=== PATIENT | female | born 1960 | race Caucasian/White ===

== ENCOUNTER → 2018-02-20 13:30 | Outpatient (CLI) | payer MEDICAID, SELFPAY ==
--- NOTE | 2018-02-20 13:32 | STE_ITS ---
Reason For Study: CHEST PAIN Stress Results Protocol: [facility]ector Protocol Maximum Predicted HR: 162 bpm Target HR: 138 bpm% Max imum Predicted HR: 93 % DurationHeart Rate Stage (mm:ss) (bpm) BPDose Comment BASELINE 70 129/97 STAGE 1 3:00 76 137/78 10.00 STAGE 2 3:00 10 7 130/69 20.00 STAGE 3 3:00 11 2 143/84428.00 STAGE 4 1:48 15 1 122/75 40.00 RECOVERY 97 127/83 0.7 ML DEFINITY FOR TEST Stress Duration: 10:48 mm:ss Maximum Stress HR: 151 bpm Baseline Echocardiogram Findings Stress Echo Wall motion Data Resting WMIntermediate WMStress WM Resting Wall Motion Wall Motion Stress No regional wall motion No regional wall motion abnormalities noted. abnormalities noted. Ejection Fraction 55 %. Ejection Fraction 65 %. Stress Results Drug infusion was stopped due to achievement of target heart rate. Normal BP response. EKG Data Baseline ECG demonstrates normal sinus rhythm with a rate of 74 beats per minute. Normal intervals are noted. The resting blood pressure was 129/79. The patient was titrated from 10 mcg to a maximum of 40 mcg of dobutamine during the stress. This was 94% of maximum predicted heart rate. During dobutamine infusion, there were no ST or T wave changes noted to suggest ischemia. At peak infusion, upsloping ST changes only were noted, which did not meet the criteria for ischemia. The peak blood pressure was 148/80. No arrhythmias noted. No clinical angina was noted. Interpretation Summary Normal resting LV systolic function. Nonstenotic valves. With stress, the LV size decreased and all segments augmented normally. The LVEF increased from 55% to 65%. Negative for ischemia at 94% of MPHR and at 1 METS. Normal dobutamine stress echo Ordering Physician: Sim Branch Referring Physician: Sim Branch Performed By: Francisca Carlisle, RDCS, RVT
== END ==
PROVIDERS: Family Provider Family Medicine; PCP Family Medicine; Visit Provider Internal Medicine Cardiovascular Disease
DX: R07.9 Chest pain, unspecified (principal)
CPT/HCPCS: 93017; 93350; J7030; Q9957; A4216; C8928

== ENCOUNTER 2018-04-15 17:07 | Emergency (ER) | payer MEDICAID, SELFPAY ==
[2018-04-15 17:08] VITALS: BP 148/96; PULSE 95; RESP 17; TEMP 36.9; O2SAT 98; BMI 36.6
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
[2018-04-15 17:12] VITALS: BP 163/93; PULSE 102; RESP 24; O2SAT 98
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
[2018-04-15] MEDS: morphine 8 MG/ML Syringe IV (17:23)
[2018-04-15] MEDS: Ondansetron 4 MG/2 ML Vial IV (17:23)
[2018-04-15] MEDS: 0.9% Normal Saline 1,000 ML 999 ML IV (17:23)
[2018-04-15 17:43] LABS: Absolute Lymphocyte Count 3.49 X10^3/ul (0.83-4.51); Absolute Neutrophil Count 11.4 X10^3/uL (2.0-7.7); Basophil# 0.04 X10^3/uL; Basophil% 0.2 % (0-1); Eosinophil# 0.08 X10^3/uL; Eosinophils% 0.5 % (0-5); Hematocrit 47.2 % (37-47); Hemoglobin 15.9 g/dl (12.0-15.0); Lymphocyte # 3.49 X10^3/ul (4.0); Lymphocyte % 21.5 % (19-41); Mean Corp Hgb Conc 33.7 g/gl (32-36); Mean Corpuscular Hgb 31.2 pg (27.0-32.0); Mean Corpuscular Volume 92.5 fL (81-99); Mean Platelet Vol. 9.6 fl (6.2-12.0); Monocyte# 1.14 X10^3/uL; Neutrophil # 11.38 X10^3/uL (2.7-7.7); Neutrophil % 69.9 % (47-70); Platelet Count 294 K/mm3 (150-450); RBC Distribution Width CV 13.6 % (11.6-14.6); RBC Distribution Width SD 46.2 fl (35.1-43.9); White Blood Count 16.3 K/mm3 (4.4-11.0)
[2018-04-15 17:44] LABS: Anion Gap 12 (5-15); BUN 18 mg/dL (7-18); BUN/Creat Ratio 14.3 RATIO (10-20); Calcium,Total 9.2 mg/dL (8.5-10.1); Chloride 101 mmol/L (98-107); Creatinine, Serum 1.26 mg/dL (0.55-1.02); EST Glomerular Filtration Rate 46 mL/min (>60); Est Glom Filt Rate - Afr Amer 56 mL/min (>60); Estimated Creatinine Clearance 43.79 ml/min; Glucose 138 mg/dL (74-106); Potassium 2.9 mmol/L (3.5-5.1); Sodium Level 139 mmol/L (136-145)
[2018-04-15 17:45] LABS: POSITIVE COUNT NO; POSITIVE DIFFERENTIAL NO; POSITIVE MORPHOLOGY NO
[2018-04-15 17:49] LABS: Alcohol, Blood (Medical)-Serum < 3.0 mg/dL
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
[2018-04-15 18:30] VITALS: PULSE 95; RESP 18; O2SAT 94
--- NOTE | 2018-04-15 18:33 | ED.RN ---
ohp officer at bedside will obtain urine specimen when he is finished. pt denies any further needs at this time.
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
--- NOTE | 2018-04-15 19:31 | ED.RN ---
per dr. byers. verbal order urine was obtained but not sent. pt urine clear yellow. no difficulty with urination reports by pt.
[2018-04-15 19:58] VITALS: BP 128/78; PULSE 92; RESP 17; O2SAT 98
--- NOTE | 2018-04-15 19:59 | ED.RN ---
pt given written and verbal discharge instructions and verbalizes understanding. pt instructed on home going prescriptions. pt ivs d/c and covered with 2x2 gauze and paper tape. minimal bleeding from sites noted. pt dresses self and ambulates out of dept. without assistance, family to drive pt home.
== END 2018-04-15 20:01 | disposition home or self-care (01) ==
PROVIDERS: Emergency Provider Emergency Medicine; Family Provider Family Medicine; PCP Family Medicine
DX: S20.212A Contusion of left front wall of thorax, initial encounter (principal); S30.811A Abrasion of abdominal wall, initial encounter; S30.1XXA Contusion of abdominal wall, initial encounter; E87.6 Hypokalemia; N28.9 Disorder of kidney and ureter, unspecified; R73.9 Hyperglycemia, unspecified; M25.531 Pain in right wrist; V89.2XXA Person injured in unspecified motor-vehicle accident, traffic, initial encounter; Y93.9 Activity, unspecified; Y92.9 Unspecified place or not applicable; E66.9 Obesity, unspecified; I10 Essential (primary) hypertension; E78.00 Pure hypercholesterolemia, unspecified; Z90.89 Acquired absence of other organs; Z90.49 Acquired absence of other specified parts of digestive tract; Z90.710 Acquired absence of both cervix and uterus; Z79.82 Long term (current) use of aspirin; Z79.899 Other long term (current) drug therapy
CPT/HCPCS: 71046; 73110; 74177; 80048; 80320; 85025; 93005; 96361; 96374; 96375; 99285; J7030; Q9967; A4216; G0480; J2405

== ENCOUNTER → 2018-10-07 14:07 | Outpatient (CLI) | payer MEDICAID, SELFPAY ==
[2018-10-07 14:42] LABS: Absolute Neutrophil Count 3.7 X10^3/uL (2.0-7.7); Basophil# 0.04 X10^3/uL; Basophil% 0.6 % (0-1); Eosinophil# 0.23 X10^3/uL; Eosinophils% 3.3 % (0-5); Hematocrit 43.3 % (37-47); Hemoglobin 14.1 g/dl (12.0-15.0); Lymphocyte % 36.8 % (19-41); Mean Corp Hgb Conc 32.6 g/gl (32-36); Mean Corpuscular Hgb 30.5 pg (27.0-32.0); Mean Corpuscular Volume 93.5 fL (81-99); Mean Platelet Vol. 9.9 fl (6.2-12.0); Monocyte# 0.51 X10^3/uL; Monocyte% 7.2 % (0-10); Neutrophil # 3.67 X10^3/uL (2.7-7.7); POSITIVE COUNT NO; POSITIVE DIFFERENTIAL NO; POSITIVE MORPHOLOGY NO; Platelet Count 252 K/mm3 (150-450); RBC Distribution Width CV 12.7 % (11.6-14.6); RBC Distribution Width SD 43.1 fl (35.1-43.9); Red Blood Count 4.63 M/mm3 (4.2-5.4); White Blood Count 7.1 K/mm3 (4.4-11.0)
[2018-10-07 14:57] LABS: Hemoglobin A1c 5.9 % (4.2-6.3)
[2018-10-07 15:03] LABS: ALB/GLOB Ratio 0.9 RATIO (0.9-2.4); AST(SGOT) 37 U/L (15-37); Alanine Aminotransfer ALT/SGPT 33 U/L (13-56); Albumin, Serum 3.3 g/dL (3.2-5.0); Alkaline Phosphatase 95 U/L (45-117); Anion Gap 11 (5-15); BUN 11 mg/dL (7-18); BUN/Creat Ratio 15.1 RATIO (10-20); Calcium,Total 8.5 mg/dL (8.5-10.1); Chloride 107 mmol/L (98-107); Cholesterol 108 mg/dL (200); Creatinine, Serum 0.73 mg/dL (0.55-1.02); EST Glomerular Filtration Rate 87 mL/min (>60); Est Glom Filt Rate - Afr Amer 105 mL/min (>60); Globulin 3.6 g/dL (2.2-4.2); Glucose 102 mg/dL (74-106); High Density Lipoprotein 32 mg/dL; Potassium 3.3 mmol/L (3.5-5.1); Protein, Total 6.9 g/dL (6.4-8.2); Sodium Level 143 mmol/L (136-145); Triglycerides 205 mg/dL; Very Low Density Lipoprotein 41 mg/dL (5-40)
== END ==
PROVIDERS: Family Provider Internal Medicine; PCP Internal Medicine; Referring Provider Internal Medicine; Visit Provider Internal Medicine
DX: E78.5 Hyperlipidemia, unspecified (principal); I10 Essential (primary) hypertension; R73.9 Hyperglycemia, unspecified
CPT/HCPCS: 36415; 80053; 80061; 83036; 85025

== ENCOUNTER → 2018-10-16 18:39 | Outpatient (CLI) | payer MEDICAID, SELFPAY ==
[2018-10-16 14:42] VITALS: BMI 35.9
[2018-10-16 18:42] LABS: Mucous, Urine 0 SEEN /hpf (<or=2+); Red Blood Cells-Urine 0 SEEN /hpf (0-5)
[2018-10-16 20:16] LABS: Color, Urine Yellow (Yellow); Glucose, Dipstick Normal (Normal); Ketone-Dipstick 5 mg/dl (Negative); Leukocyte Esterase-Dipstick 25 /ul (Negative); Nitrite-Dipstick Negative (Negative); Occult Blood-Urine 10 /ul (Negative); Protein-Dipstick 15 mg/dl (Negative); Urine Bilirubin Dipstick Negative (Negative); Urine Clarity Sl. Cloudy (Clear); Urine Urobilinogen Normal (Normal)
[2018-10-16 20:30] LABS: Bacteria 3+ /hpf (None Seen); Hyaline Cast 0-5 SEEN /lpf (0-5); Squamous Epithelial Cells - UA 0-5 SEEN /hpf (5-10); White Blood Cells 0-5 SEEN /hpf (0-5)
== END ==
PROVIDERS: Family Provider Internal Medicine; PCP Internal Medicine; Referring Provider Physician Assistant Surgical; Visit Provider Physician Assistant Surgical
DX: R30.0 Dysuria (principal)
CPT/HCPCS: 81001; 87086; 87088; 87186

== ENCOUNTER → 2018-11-25 15:45 | Outpatient (CLI) | payer MEDICAID, SELFPAY ==
[2018-10-16 14:42] VITALS: BMI 35.9
--- NOTE | 2018-11-25 15:47 | US_ITS ---
STUDY: RENAL ULTRASOUND - COMPLETE REASON FOR EXAM: Female, 58 years old. Chronic UTIs. TECHNIQUE: Ultrasound evaluation of the kidneys was performed with real-time and static heck-scale imaging. COMPARISON: CT of the abdomen and pelvis dated April 17, 2018 FINDINGS: RIGHT KIDNEY: Normal location of the right kidney, which is normal in size. The right kidney measures 11.2 cm in length. There is a normal cortex of the right kidney. There is no right renal mass or cyst. There are no right renal calculi. There is no right hydronephrosis. DISTAL RIGHT URETER: There is a visualized right ureteral jet. LEFT KIDNEY: Normal location of the left kidney, which is normal in size. The left kidney measures 10.9 cm in length. There is a normal cortex of the left kidney. There is no left renal mass or cyst. There are no left renal calculi. There is no left hydronephrosis. DISTAL LEFT URETER: There is a visualized left ureteral jet. BLADDER: The distended urinary bladder has a volume of 161 ml. There is a normal wall thickness of the distended urinary bladder. There is no demonstrated mass within the urinary bladder. There are no demonstrated bladder calculi. The visualized liver is diffusely echogenic. US/Kidney and Bladder IMPRESSION: Within normal limits ultrasound of the kidneys and urinary bladder. Fatty infiltration of the liver. Electronically Signed: Soraida Ferreira MD at 17:22 EST Tel , Service support ,
== END ==
PROVIDERS: Family Provider Internal Medicine; PCP Internal Medicine; Referring Provider Urology; Visit Provider Urology
DX: N39.0 Urinary tract infection, site not specified (principal)
CPT/HCPCS: 76770

== ENCOUNTER → 2018-12-10 13:20 | Outpatient (CLI) | payer MEDICAID, SELFPAY ==
[2018-12-08 09:25] VITALS: BMI 35.9
--- NOTE | 2018-12-10 13:24 | BI_ITS ---
MAMMOGRAPHY - BILATERAL DIAGNOSTIC REASON FOR EXAM: Female, 58 years old. Right breast lumps. PERTINENT HISTORY: Grandmother with breast cancer. TECHNIQUE: Digital bilateral breast sharona (3D mammographic acquisition) in the CC and MLO projections. 2-D mediolateral oblique (MLO) and craniocaudad (CC) views of both breasts were obtained. CAD: Full Field Digital Mammography with Computer Added Detection was performed. COMPARISON: Comparison is made with prior outside examination dated August 09, 2014 and November 05, 2017. FINDINGS: Breast Composition: There are scattered areas of fibroglandular density. There are no dominant masses or suspicious calcifications. No other significant abnormalities are identified. There has been no significant change since the prior study. BI/DIAG MAMM W/CAD, BILAT IMPRESSION: Stable bilateral diagnostic mammogram. With the patient's history of palpable abnormality in the inferior retroareolar region of the right breast, correlation with ultrasound is recommended. ASSESSMENT CATEGORY: BIRADS Category 0: Incomplete. Need additional imaging evaluation. A letter regarding these results will be sent to the patient by the facility within 30 days. Approximately 10% of breast cancers are not detected by mammography. A normal mammogram should not delay biopsy of a clinically suspicious abnormality. Electronically Signed: Jorge Doherty MD at 15:16 EST Tel [phone], Service support ,
--- NOTE | 2018-12-10 13:24 | US_ITS ---
STUDY: ULTRASOUND BREAST - RIGHT REASON FOR EXAM: Female, 58 years old. Right breast lump. TECHNIQUE: Axial and longitudinal images of the RIGHT breast were performed with a high resolution ultrasound transducer. COMPARISON: Comparison is made with prior mammogram done earlier in the day. FINDINGS: RIGHT Breast: There are several subcentimeters cysts. There is a 7 mm x 8 mm x 6 mm cyst at the 12:00 position of the breast at 3 cm from nipple. There is a 9 mm x 9 mm x 8 mm cyst at the 2:00 position of the breast at 2 cm from the nipple. There is a 6 mm x 7 mm x 6 mm cyst at the 3:00 position of the breast at 2 cm from the nipple. There is a 4 mm x 4 mm x 4 mm cyst at the 3:00 position of the breast at 1 cm from the nipple. US/Breast Limited Unilateral IMPRESSION: Multiple small cysts. ASSESSMENT CATEGORY: BIRADS Category 2: Benign. A letter regarding these results will be sent to the patient by the facility within 30 days. Electronically Signed: Jorge Doherty MD at 14:45 EST Tel [phone], Service support ,
== END ==
PROVIDERS: Family Provider Internal Medicine; PCP Internal Medicine; Referring Provider Internal Medicine; Visit Provider Internal Medicine
DX: N63.10 Unspecified lump in the right breast, unspecified quadrant (principal)
CPT/HCPCS: 76642; 77062; 77066; G0279

== ENCOUNTER → 2019-02-03 15:34 | Outpatient (CLI) | payer MEDICAID, SELFPAY ==
[2019-01-27 14:33] VITALS: BMI 35.9
[2019-02-03 17:27] LABS: Anion Gap 10 (5-15); BUN 8 mg/dL (7-18); BUN/Creat Ratio 9.6 RATIO (10-20); Calcium,Total 9.3 mg/dL (8.5-10.1); Chloride 101 mmol/L (98-107); Creatinine, Serum 0.84 mg/dL (0.55-1.02); EST Glomerular Filtration Rate 74 mL/min (>60); Est Glom Filt Rate - Afr Amer 90 mL/min (>60); Glucose 89 mg/dL (74-106); Potassium 3.6 mmol/L (3.5-5.1); Sodium Level 138 mmol/L (136-145)
== END ==
PROVIDERS: Family Provider Internal Medicine; PCP Internal Medicine; Referring Provider Internal Medicine; Visit Provider Internal Medicine
DX: I10 Essential (primary) hypertension (principal); J32.9 Chronic sinusitis, unspecified
CPT/HCPCS: 36415; 80048; 87070; 87077; 87205

== ENCOUNTER → 2019-03-18 16:06 | Outpatient (CLI) | payer MEDICAID, SELFPAY ==
[2019-02-17 14:37] VITALS: BMI 35.9
--- NOTE | 2019-03-18 16:11 | CT_ITS ---
STUDY: CT TEMPORAL BONES WITHOUT CONTRAST REASON FOR EXAM: Female, 58 years old. Left otalgia and drum retraction. Infection x2 months. Meds not helping. RADIATION DOSAGE (If Supplied By Facility): CTDIvol = ( 67.58 ) mGy, DLP = ( 544.44 ) mGycm TECHNIQUE: The patient was scanned in a multi detector CT scanner. High resolution transaxial imaging was performed without the administration of intravenous contrast material. Sagittal and coronal images were reconstructed. Individualized dose optimization techniques were used for this CT. COMPARISON: None. FINDINGS: RIGHT TEMPORAL BONE Normal right external auditory canal. Normal malleus, incus and stapedius. Normal malleoincudal and incudostapedial articulations. Normal epitympanum, mesotympanum, and hypotympanum. Normal right posterior, superior and lateral semicircular canals. Normal right vestibule and cochlea. Normal tympanic segment of the facial nerve. Normal Korner's septum, tegmen tympani, arcuate eminence and aditus ad antrum. Normal right mastoid air cells. Normal right petrous apex. Normal right petrous carotid artery. Normal right jugular fossa. Normal right internal auditory canal. Normal right vestibular and cochlear aqueducts. LEFT TEMPORAL BONE Normal left external auditory canal. Normal malleus, incus and stapedius. Normal malleoincudal and incudostapedial articulations. Normal epitympanum, mesotympanum, and hypotympanum. Normal left posterior, superior and lateral semicircular canals. Normal left vestibule and cochlea. Normal tympanic segment of the facial nerve. Normal Korner's septum, tegmen tympani, arcuate eminence and aditus ad antrum. Normal left mastoid air cells. Normal left petrous apex. Normal left petrous carotid artery. Normal left jugular fossa. Normal left internal auditory canal. Normal left vestibular and cochlear aqueducts. CT/Orb Sella Post Fossa Ear w/o IMPRESSION: Normal CT examination of the bilateral temporal bones. Electronically Signed: Hayden Howard MD at 9:35 EDT , Service support ,
== END ==
PROVIDERS: Family Provider Internal Medicine; PCP Internal Medicine; Referring Provider Otolaryngology Otolaryngology/Facial Plastic Surgery; Visit Provider Otolaryngology Otolaryngology/Facial Plastic Surgery
DX: H92.02 Otalgia, left ear (principal)
CPT/HCPCS: 70480

== ENCOUNTER → 2019-03-31 | Outpatient (CLI) | payer MEDICAID, SELFPAY ==
[2019-02-17 14:37] VITALS: BMI 35.9
--- NOTE | 2019-03-31 15:53 | CT_ITS ---
HISTORY: otalgia, neck pain EXAMINATION: CT Soft Tissue Neck W/ Contrast TECHNIQUE: Helically acquired images were obtained of the neck following IV contrast. A radiation dose optimization technique was used for this scan. IV Contrast dosage and agent: 75 Isovue 370 COMPARISON: CT temporal Bones 03/18/19. FINDINGS: NASOPHARYNX: Unremarkable. SUPRAHYOID NECK: Unremarkable oropharynx, oral cavity, parapharyngeal space, and retropharyngeal space. INFRAHYOID NECK: Unremarkable larynx, hypopharynx, and supraglottis. THYROID AND SALIVARY GLANDS: Normal. LYMPH NODES: No cervical or supraclavicular lymphadenopathy. VASCULAR STRUCTURES: Unremarkable. ORBITS, PARANASAL SINUSES, MASTOID AIR CELLS AND SKULL BASE: Unremarkable. BONES: Unremarkable. THORACIC INLET: Clear lung apices. CT/Soft Tissue Neck WITH Contrast IMPRESSION: Negative CT Neck with contrast. Individualized dose optimization techniques were used for this CT. at [id number] Reported and signed by: Elvis Cano MD Electronically Signed: Elvis Cano, at 23:44 EDT Tel , Service support ,
== END | disposition home or self-care (01) ==
LOC: CT 15:52
PROVIDERS: Family Provider Internal Medicine; PCP Internal Medicine; Referring Provider Otolaryngology Otolaryngology/Facial Plastic Surgery; Visit Provider Otolaryngology Otolaryngology/Facial Plastic Surgery
DX: M54.2 Cervicalgia (principal); H92.02 Otalgia, left ear
CPT/HCPCS: 70491

== ENCOUNTER → 2019-05-20 | Outpatient (CLI) | payer MEDICAID, SELFPAY ==
[2019-02-17 14:37] VITALS: BMI 35.9
--- NOTE | 2019-05-20 10:43 | CDU_ITS ---
Reason For Study: STENOSIS Rt. Velocities/BP Lt. Velocities/BP Prox CCA 136/30 cm/sec. Prox CCA 136/19 cm/sec. Mid CCA 81/17 cm/sec. Mid CCA 102/25 cm/sec. Dist CCA 80/21 cm/sec. Dist CCA 89/23 cm/sec. Prox ICA 83/15 cm/sec. Prox ICA 69/21 cm/sec. Mid ICA 61/22 cm/sec. Mid ICA 85/32 cm/sec. Dist ICA 93/30 cm/sec. Dist ICA 96/34 cm/sec. Rt. ICA/CCA = .7. Lt. ICA/CCA = .7. Prox ECA 73/12 cm/sec. Prox ECA 87/14 cm/sec. Rt. Vert. 53/18 cm/sec. Lt. Vert. 41/12 cm/sec. Right Extracranial There is intimal thickening but no significant atherosclerotic plaque noted in the right common carotid artery. There is intimal thickening but no significant atherosclerotic plaque noted in the right internal carotid artery. There is intimal thickening but no significant atherosclerotic plaque noted in the right external carotid artery. Antegrade flow is noted in the right vertebral artery. Left Extracranial There is intimal thickening but no significant atherosclerotic plaque noted in the left common carotid artery. There is intimal thickening but no significant atherosclerotic plaque noted in the left internal carotid artery. There is intimal thickening but no significant atherosclerotic plaque noted in the left external carotid artery. Antegrade flow is noted in the left vertebral artery. Procedure Carotid Duplex [id number]. Exam performed in department. Interpretation Summary No significant atherosclerotic plaque or stenosis noted in the internal carotid arteries bilaterally. Flow within the vertebral arteries is antegrade bilaterally. Ordering Physician: Moises Rodgers Referring Physician: Ryan Leyva Performed By: Briana Gaytan, RDCS, RVT
== END | disposition home or self-care (01) ==
LOC: CVS 10:41
PROVIDERS: Family Provider Internal Medicine; PCP Internal Medicine; Referring Provider Psychiatry & Neurology Neurology; Visit Provider Psychiatry & Neurology Neurology
DX: I65.22 Occlusion and stenosis of left carotid artery (principal)
CPT/HCPCS: 93880

== ENCOUNTER 2019-06-23 14:00 | Outpatient (RCR) | payer MEDICAID, SELFPAY ==
[2019-02-17 14:37] VITALS: BMI 35.9
--- NOTE | 2019-05-20 13:43 | HP.PTEVAL ---
Patient's Visit Information NATALIA MARQUEZ is a 58 year old F referred to Physical Therapy by Moises Rodgers MD with a diagnosis of neck pain. Date of Evaluation: 05/20/19 Physical Therapist: Guzman Pruett, JUANJOSET, OCS, CSCS - Visit Plan Frequency: 2x /Week Duration: 4-6 Weeks Plan: 2x/week for 4-6 weeks for ( monitor L rotation ROM, subjective, c/s ext. 1. L UT stretches adn L SCM stretches. Focus L c/s rotation and retraction extension. 2. cervical strength focussing L SCM isometrics and posture. 3. STM to L mastoid area and PROM c/s with ext mobs to tolerance and some ear pulls/manual traction. MH - Subjective Findings: Pain up under L ear starting insidously months ago. ENT treated with meds whcih did not help. Sent to [facility]. Had US of carotid this am and awaiting results. Needs PT for MRI of neck. 3/10 annoying L ear pain. It is worse with pressure or sticking finger in ear. Ear drops made it worse with cue tip in ear. Life and activities are normal it just hurts. Basic aDLs normal. Balance is OK and no unusual dizzyness. Sleep is OK. 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 - Pain L under L ear. Pain Intensity (Out of 10): 3 Pain Intensity Range: 3 - Objective Posture is forward head and anterior scapula. c/s AROM L 55 rotation and pain, R 65 rotation, SB painful to R, ext 35 adn painful with OP. L SCM mastoid attachment is tender to touch as is the skull just below the ear. L rotation gently increases pain at end range. PROM L rotation painful to push past active numbers. Slight improvement of L rotation to 58 degrees after PROM ex L rotation. UE AROM WNL and without symptoms. reflexes 2/3 bi and tri B. Sensation UE WNL to gross light touch. Strength UE 4/5 without myotomal abnormalities. - c/s compression test. Palpation to cervical soft tissue outside of L scm is not tender adn feels good. - Goals Goal 1:: Pain in L ear area 1/10 at worst and intermittent Goal Time Frame: 4-6 Weeks Goal 2:: pain 75% improved and manageable with exercises. Goal Time Frame: 4-6 Weeks Goal 3:: I appropr EHp to limit future problems. Goal Time Frame: 4-6 Weeks - Rehabilitation Potential Physical Therapy Diagnosis: Some neck limitiations that may contribute to this unusual skull pain. Rehabilitation Potential: Fair - Anticipated Interventions Patient/Client Instruction: Educate patient on: Condition, Plan of Care For the Purpose of:: To decrease pain, To increase ROM, To improve muscle performance and motor function Therapeutic Exercise to Include: Strength training, Postural training, Flexibilty training, Passive ROM, Active ROM, Kat Exercises For the Purpose of:: To decrease pain, To increase ROM, To increase tolerance to activity/condition/position, To improve ability of physical actions for home/community/work/leisure Manual Therapy Techniques to Include: Mobilization, Passive ROM Comment: ear pull , manual traction gently. For the Purpose of:: To decrease pain, To increase ROM Thermo therapy (hot pack): Yes For the Purpose of:: To decrease pain Thank you for the opportunity to evaluate your patient. For Medicare and Medicare HMO plans, please review the plan of care and approve it. It will need to be FAXED BACK to us at [phone] for Medicare purposes. For Medicare only, by signing this I certify the plan of care. Please let me know if there are questions or concerns regarding this plan of care. Physician Signature: Date:
--- NOTE | 2019-08-19 12:10 | HP.PTDCNRP_ITS ---
HP - Discharge Summary (1) - Patient Information NATALIA MARQUEZ was seen in my office for initial evaluation on 05/20/19. The following Plan of Care was established for this patient: Initial Frequency: 2x /Week Initial Duration: 4-6 Weeks - Anticipated Interventions Patient/Client Instruction: Educate patient on: Condition, Plan of Care For the Purpose of:: To decrease pain, To increase ROM, To improve muscle perfo rmance and motor function Therapeutic Exercise to Include: Strength training, Postural training, Flexibilty training, Passive ROM, Active ROM, Kat Exercises For the Purpose of:: To decrease pain, To increase ROM, To increase tolerance to activity/condition/position, To improve ability of physical actions for home/community/work/leisure Manual Therapy Techniques to Include: Mobilization, Passive ROM Comment: ear pull , manual traction gently. For the Purpose of:: To decrease pain, To increase ROM Thermo therapy (hot pack): Yes For the Purpose of:: To decrease pain This patient was last seen in our office 06/23/19. Pertinent comments regarding their Physical therapy will appear below: Pt seen for 6 visits of her POC but neglected to attend her last scheduled visit. At this point, it has been almost two months adn I will discontinue due to nonattendance. At this point I will be discontinuing this patient from physical therapy. I would be happy to see this patient again in the future if found appropriate by the physician. Thank you! Guzman Pruett, DPT, OCS, CSCS
== END 2019-06-23 19:00 | disposition home or self-care (01) ==
LOC: PT 14:00
PROVIDERS: Family Provider Internal Medicine; PCP Internal Medicine; Referring Provider Psychiatry & Neurology Neurology; Visit Provider Psychiatry & Neurology Neurology
DX: M54.2 Cervicalgia (principal)
CPT/HCPCS: 97012; 97110; 97140; 97162

== ENCOUNTER → 2019-09-20 13:45 | Outpatient (CLI) | payer MEDICAID, SELFPAY ==
[2019-09-20 12:51] VITALS: BMI 35.9
--- NOTE | 2019-09-20 14:03 | RAD_ITS ---
STUDY: X-RAY CHEST REASON FOR EXAM: Female, 59 years old. Cough. TECHNIQUE: PA and lateral views of the chest. COMPARISON: Comparison is made with prior study dated April 15, 2018. FINDINGS: The lungs are clear and expanded. Scattered calcified granulomas. There is no demonstrated pleural abnormality. Normal size heart. Normal mediastinum and eugenio. Normal visualized pulmonary arteries. Normal visualized aortic arch and descending thoracic aorta. There are mild degenerative changes of the visualized thoracic spine. Normal visualized ribs, clavicles, and shoulders. There is no demonstrated abnormality of the visualized soft tissue structures of the upper abdomen. RAD/Chest PA and Lateral IMPRESSION: No acute abnormality is seen. Electronically Signed: Jorge Doherty, at 14:17 EDT , Service support ,
== END ==
PROVIDERS: Family Provider Internal Medicine; PCP Internal Medicine; Referring Provider Physician Assistant Surgical; Visit Provider Physician Assistant Surgical
DX: J20.9 Acute bronchitis, unspecified (principal)
CPT/HCPCS: 71046

== ENCOUNTER → 2019-10-25 10:42 | Outpatient (CLI) | payer MEDICAID, SELFPAY ==
[2019-10-25 10:29] VITALS: BMI 34.5
--- NOTE | 2019-10-25 10:44 | RAD_ITS ---
STUDY: X-RAY - RIGHT KNEE REASON FOR EXAM: Female, 59 years old. Pain. TECHNIQUE: 5 view(s) of the knee. COMPARISON: None. FINDINGS: Normal visualized distal femur. Normal visualized proximal tibia and fibula. Normal proximal tibiofibular articulation. There is no demonstrated fracture. Moderate narrowing of the medial tibiofemoral compartment, without osteophytes. Normal lateral femorotibial compartment. Normal patellofemoral articulation. There is no demonstrated joint effusion. The soft tissue structures are unremarkable. RAD/Knee 4 or More Views IMPRESSION: No acute abnormality. Moderate narrowing of the medial tibiofemoral compartment. Electronically Signed: Suresh Candelario MD at 18:15 EST , Service support ,
== END ==
PROVIDERS: Family Provider Internal Medicine; PCP Internal Medicine; Referring Provider Orthopaedic Surgery; Visit Provider Orthopaedic Surgery
DX: M25.561 Pain in right knee (principal)
CPT/HCPCS: 73564

== ENCOUNTER → 2019-11-13 10:10 | Outpatient (CLI) | payer MEDICAID, SELFPAY ==
[2019-10-27 15:09] VITALS: BMI 34.5
--- NOTE | 2019-11-13 10:26 | RAD_ITS ---
STUDY: X-RAY - LUMBAR SPINE REASON FOR EXAM: Female, 59 years old. Chronic low back pain TECHNIQUE: 5 view(s) of the lumbar spine were obtained. COMPARISON: None FINDINGS: Normal lumbar lordosis. There is a levocurvature of the lumbar spine. There is a normal alignment of the vertebrae. There is diffuse demineralization with multi-level endplate spondylosis. Loss of disc space most pronounced at L4-L5 and L5-S1 also demonstrating facet arthropathy at these levels. There is no demonstrated fracture. There is no demonstrated spondylolysis of the pars interarticulares. The soft tissue structures are unremarkable. RAD/L/S Spine Min 4 Views IMPRESSION: Degenerative disc disease and facet arthropathy L4-L5 and L5-S1. Electronically Signed: Arjun Baldwin MD ([place]) at 13:02 EST , Service support ,
[2019-11-13 11:03] LABS: Absolute Lymphocyte Count 2.82 X10^3/uL (0.83-4.51); Absolute Neutrophil Count 12.9 X10^3/uL (2.0-7.7); Basophil# 0.06 X10^3/uL; Basophil% 0.4 % (0-1); Eosinophil# 0.01 X10^3/uL; Eosinophils% 0.1 % (0-5); Hematocrit 44.3 % (37-47); Hemoglobin 15.1 g/dL (12.0-15.0); Lymphocyte # 2.82 X10^3/ul (4.0); Lymphocyte % 17.2 % (19-41); Mean Corp Hgb Conc 34.1 g/dL (32-36); Mean Corpuscular Hgb 30.9 pg (27.0-32.0); Mean Corpuscular Volume 90.6 fL (81-99); Mean Platelet Vol. 9.2 fl (6.2-12.0); Monocyte# 0.52 X10^3/uL; Monocyte% 3.2 % (0-10); NRBC Flagged by Analyzer 0 % (0-5); Neutrophil # 12.93 X10^3/uL (2.7-7.7); Neutrophil % 78.6 % (47-70); Platelet Count 302 K/mm3 (150-450); RBC Distribution Width CV 12.5 % (11.6-14.6); RBC Distribution Width SD 41.1 fl (35.1-43.9); Red Blood Count 4.89 M/mm3 (4.2-5.4); White Blood Count 16.4 K/mm3 (4.4-11.0)
[2019-11-13 11:26] LABS: ALB/GLOB Ratio 0.9 RATIO (0.9-2.4); AST(SGOT) 20 U/L (15-37); Alanine Aminotransfer ALT/SGPT 34 U/L (13-56); Albumin, Serum 3.9 g/dL (3.2-5.0); Alkaline Phosphatase 107 U/L (45-117); Anion Gap 7 (5-15); BUN 11 mg/dL (7-18); BUN/Creat Ratio 11.9 RATIO (10-20); Calcium,Total 9.2 mg/dL (8.5-10.1); Chloride 101 mmol/L (98-107); Cholesterol 162 mg/dL (200); Creatinine, Serum 0.92 mg/dL (0.55-1.02); EST Glomerular Filtration Rate 66 mL/min (>60); Est Glom Filt Rate - Afr Amer 80 mL/min (>60); Globulin 4.4 g/dL (2.2-4.2); Glucose 103 mg/dL (74-106); High Density Lipoprotein 56 mg/dL; Potassium 3.5 mmol/L (3.5-5.1); Protein, Total 8.3 g/dL (6.4-8.2); Sodium Level 136 mmol/L (136-145); Triglycerides 95 mg/dL; Very Low Density Lipoprotein 19 mg/dL (5-40)
== END ==
PROVIDERS: Family Provider Internal Medicine; PCP Internal Medicine; Referring Provider Internal Medicine; Visit Provider Internal Medicine
DX: M51.37 Other intervertebral disc degeneration, lumbosacral region (principal); E78.5 Hyperlipidemia, unspecified; I10 Essential (primary) hypertension
CPT/HCPCS: 36415; 72110; 80053; 80061; 85025

== ENCOUNTER 2019-11-22 10:47 | Emergency (ER) | payer MEDICAID, SELFPAY ==
[2019-11-22 10:20] VITALS: BMI 34.5
[2019-11-22 10:48] VITALS: BP 106/83; PULSE 95; RESP 20; TEMP 36.8; O2SAT 93; BMI 35.3
--- NOTE | 2019-11-22 11:11 | RAD_ITS ---
STUDY: X-RAY CHEST REASON FOR EXAM: Female, 59 years old. Shortness of breath. Cough. TECHNIQUE: PA and lateral views of the chest. COMPARISON: 09/20/2019. FINDINGS: Cardiac silhouette unremarkable. Pulmonary vascularity unremarkable. Aorta unremarkable. No focal patchy airspace opacities. No pleural effusions. Slightly coarse lung markings. Upper abdomen unremarkable. Osseous structures intact with mild degenerative features. No pneumothorax. RAD/Chest PA and Lateral IMPRESSION: No focal patchy airspace opacities or pleural effusions Slightly coarse lung markings (bronchitis/COPD) Electronically Signed: Guzman Sheridan DO at 11:32 EST Tel , Service support ,
--- NOTE | 2019-11-22 11:33 | ED.VIS.GEN ---
History of Present Illness Chief Complaint: Cold Sx Detail of Chief Complaint: Syncope after coughing Informant: Patient Onset: Days - Respiratory symptoms that started Friday. Presents from urgent care because she passed out after coughing. Context: Sudden Onset Timing: Intermittent Quality: Upper respiratory and posttussive syncope Location: Not applicable Current Severity: Mild Maximum Severity: Moderate Worsened by: Syncope secondary to coughing Relieved by: Nothing Associated Symptoms: Congestion, postnasal drainage, sore throat nonproductive cough Narrative: Patient 59-year-old woman who is a non-smoker presents from urgent care because she had a syncopal episode after coughing vigorously. She went to the urgent care because of congestion, postnasal drainage, sore throat and nonproductive cough that started 2 days ago. She is a non-smoker. Denies fever. She denies headache, ocular, visual or auditory symptoms. Denies neck pain or neck stiffness. She denies rash. She has no other symptoms. Prior similar symptoms: No Recent Illness/Hospitalization: No - Past Medical History (1) Acute bronchitis Status: Acute (2) History of gout Status: Acute (3) History of skin cancer Status: Acute Comment: nose and lips, basal cell (4) Anxiety Status: Chronic (5) Depression with anxiety Status: Chronic (6) Hyperlipidemia Status: Chronic (7) Hypertension Status: Chronic (8) Nonrheumatic mitral valve prolapse Status: Chronic (9) Obesity (BMI 30-39.9) Status: Chronic Past Medical History - Allergies and Home Meds Allergies/Adverse Reactions: Allergies paroxetine [From Paxil] Allergy (Verified 11/22/19 10:50) suicidal thoughts bupropion [From Wellbutrin] Adverse Reaction (Severe, Verified 11/22/19 10:50) suicidal thoughts oxycodone HCl [From Percocet] Adverse Reaction (Verified 11/22/19 10:50) Itching Penicillins Adverse Reaction (Verified 11/22/19 10:50) YEAST INFECTION Primary Care Physician: Ryan Leyva MD [Primary Care Provider] - Prior records reviewed: Yes Surgical History: appendectomy, cholecystectomy, hysterectomy Lives: Alone Smoking Status: Never smoker Alcohol: None Drugs: None - Family History Maternal Family History: Family History (Last Reviewed 11/22/19 @ 10:20 by Cristin Tubbs) Grandfather CAD (coronary artery disease) Heart disease Myocardial infarction Hypertension Hyperlipemia Anxiety and depression Melanoma Diabetes Grandmother Diabetes Arthritis Father Alcoholism Family History: Reports: Diabetes Review of Systems General: Reports: Malaise. Denies: Chills, Fever, Subjective, Sweats, Weight loss Eyes: Denies: Visual changes - bilaterally, Blurred Vision - bilaterally ENT: Reports: Rhinorrhea, Sore throat. Denies: Bilateral ear pain Cardiovascular: Denies: Chest pain, Palpitations Respiratory: Reports: Cough. Denies: Dyspnea, Sputum, Dyspnea on exertion, Orthopnea, Paroxysmal nocturnal dyspnea, -, - Gastrointestinal: Denies: Abdominal pain, Nausea, Vomiting, Diarrhea, Melena, Hematochezia Genitourinary: Denies: Dysuria, Hematuria, Frequency Musculoskeletal: Denies: Myalgias, Arthralgias, Neck pain, Back pain, Swelling, Extremity Pain, -, - Skin: Denies: Rash, Wounds Hematologic: Denies: Easy bruising, Easy bleeding Allergy: Denies: Uticaria, Swelling of the mouth Physical Exam Vital Signs/Narrative: Vital Signs Temp Pulse Resp BP Pulse Ox 11/22/19 10:48 98.3 F 95 20 H 106/83 H 93 Inital Vital Signs reviewed: Yes General: Well nourished, Well developed, No Acute Distress Head: Normocephalic, Atraumatic Eyes: Perrl, EOMI. Negative for: Pale conjunctiva, Scleral icterus ENT: Moist mucous membranes, No rhinorrhea, TM's clear, Dry mucous membranes Neck: Supple, Nontender, No lymphadenopathy, No JVD Cardiovascular: Regular rate, Regular rhythm, No murmurs, Normal S1, Normal S2 Respiratory: No distress, CTA bilaterally, Chest nontender Abdomen: Soft, Nontender, Nondistended, Normal bowel sounds Back: Nontender, Normal Inspection Extremities: Nontender, No edema Skin: Normal color, No rash, No Trauma. Negative for: Cyanosis, Diaphoresis, Jaundice Neurological: Alert, Oriented x3, Cranial nerves II-XII grossly intact, Normal Strength, Normal Sensation Psychological: Normal affect, Normal Mood Diagnostic/Tx/Re-eval Chest X-Ray - ED: 2 View, Read by ED Physician, Normal, Heart, Mediastinum, Bony Structures, No Acute Disease, - - There is increased markings. The x-ray is unchanged from September 20, 2019. The x-ray was interpreted by me at 1129. Impressions Chest X-Ray 11/22/19 11:11 IMPRESSION: No focal patchy airspace opacities or pleural effusions Slightly coarse lung markings (bronchitis/COPD) Electronically Signed: Guzman Sheridan, at 11:32 EST Tel , Service support , 11/22/19 11:11 Chest PA and Lateral [RAD] Stat - Rhythm Strip Rhythm Strip: Sinus Rhythm Rate: 88 - Medical Decision Making Patient had posttussive syncope. Monitor reveals sinus rhythm. There is no indication for EKG since she has no other symptoms. Because of the complaint of cough shortness of breath and she appears slightly tachypneic chest x-ray was obtained. Chest x-ray unchanged from prior. Patient was informed she has a viral infection and she may be ill for another 10 to 14 days. Furthermore, she was told there is no treatment. ED Disposition - Plan for ED Patient: Diagnosis: Post-tussive syncope, Upper respiratory infection with cough and congestion Instructions: BRONCHITIS, No Antibiotic (Adult) Referrals: Ryan Leyva MD [Primary Care Provider] -
--- NOTE | 2019-11-22 11:43 | ED.DCSUM_ITS ---
- ER Visit Summary Date of Service: 11/22/19 Chief Complaint: [] History of Present Illness: The patient is a 59 F [] Physical Examination: [] Test Results: [] Emergency Department Course and Treatment: [] Treatment Plan: [] Disposition: [] Impression: [] This note was generated with [employer] dictation software. It may contain incorrect words, spelling, and punctuation that were not noted in review of the chart prior to signing ED Disposition - Plan for ED Patient: Diagnosis: Post-tussive syncope, Upper respiratory infection with cough and congestion Instructions: BRONCHITIS, No Antibiotic (Adult) Prescriptions: Hydrocodone Bit/Homatropine [Hycodan Syrup] 5 ml PO Q6H PRN PRN 4 Days #90 udc PRN Reason: Cough Transmission Status: Received by SALOM[facility]N [id number] [facility] Referrals: Ryan Leyva MD [Primary Care Provider] -
[2019-11-22 11:54] VITALS: PULSE 84; RESP 18; O2SAT 91
== END 2019-11-22 11:55 | disposition home or self-care (01) ==
LOC: ED 11:37
PROVIDERS: Emergency Provider Emergency Medicine; Family Provider Internal Medicine; PCP Internal Medicine
DX: R55 Syncope and collapse (principal); J06.9 Acute upper respiratory infection, unspecified; I10 Essential (primary) hypertension; E66.9 Obesity, unspecified; Z85.828 Personal history of other malignant neoplasm of skin
CPT/HCPCS: 71046; 99282

== ENCOUNTER → 2020-03-27 11:51 | Outpatient (CLI) | payer MEDICAID, SELFPAY ==
[2020-03-27 11:25] VITALS: BMI 35.3
[2020-03-27 14:59] LABS: Absolute Neutrophil Count 4.6 X10^3/uL (2.0-7.7); Basophil# 0.12 X10^3/uL; Basophil% 1.4 % (0-1); Eosinophil# 0.19 X10^3/uL; Eosinophils% 2.2 % (0-5); Hematocrit 45.3 % (37-47); Hemoglobin 14.8 g/dL (12.0-15.0); Mean Corp Hgb Conc 32.7 g/dL (32-36); Mean Corpuscular Hgb 30.1 pg (27.0-32.0); Mean Corpuscular Volume 92.1 fL (81-99); Mean Platelet Vol. 9.9 fl (6.2-12.0); Monocyte# 0.63 X10^3/uL; Monocyte% 7.4 % (0-10); NRBC Flagged by Analyzer 0 % (0-5); Neutrophil % 53.6 % (47-70); Platelet Count 278 K/mm3 (150-450); RBC Distribution Width CV 11.9 % (11.6-14.6); RBC Distribution Width SD 40.1 fl (35.1-43.9); Red Blood Count 4.92 M/mm3 (4.2-5.4); White Blood Count 8.6 K/mm3 (4.4-11.0)
[2020-03-27 15:27] LABS: ALB/GLOB Ratio 0.9 RATIO (0.9-2.4); AST(SGOT) 38 U/L (15-37); Alanine Aminotransfer ALT/SGPT 40 U/L (13-56); Albumin, Serum 3.8 g/dL (3.2-5.0); Alkaline Phosphatase 92 U/L (45-117); Anion Gap 6 (5-15); BUN 11 mg/dL (7-18); BUN/Creat Ratio 13.4 RATIO (10-20); Calcium,Total 9.7 mg/dL (8.5-10.1); Chloride 101 mmol/L (98-107); Creatinine, Serum 0.82 mg/dL (0.55-1.02); EST Glomerular Filtration Rate 76 mL/min (>60); Est Glom Filt Rate - Afr Amer 91 mL/min (>60); Globulin 4.2 g/dL (2.2-4.2); Glucose 97 mg/dL (74-106); Potassium 3.6 mmol/L (3.5-5.1); Sodium Level 136 mmol/L (136-145)
== END ==
PROVIDERS: PCP Internal Medicine; Referring Provider Internal Medicine; Visit Provider Internal Medicine
DX: E78.5 Hyperlipidemia, unspecified (principal); D72.829 Elevated white blood cell count, unspecified; I10 Essential (primary) hypertension; F41.8 Other specified anxiety disorders
CPT/HCPCS: 80053; 85025

== ENCOUNTER → 2020-06-14 14:13 | Outpatient (CLI) | payer MEDICAID, SELFPAY ==
[2020-05-12 16:10] VITALS: BMI 35.3
--- NOTE | 2020-06-14 14:14 | RAD_ITS ---
STUDY: X-RAY - RIGHT KNEE REASON FOR EXAM: Female, 60 years old. CHRONIC PAIN TECHNIQUE: 4 view(s) of the knee. COMPARISON: None. FINDINGS: Normal visualized distal femur. Normal visualized proximal tibia and fibula. Normal proximal tibiofibular articulation. There is no demonstrated fracture. There is severe degenerative joint space narrowing. Normal lateral femorotibial compartment. There is mild degenerative arthrosis of the patellofemoral articulation. There is no demonstrated joint effusion. The soft tissue structures are unremarkable. RAD/Knee 4 or More Views IMPRESSION: No acute fracture or dislocation. Degenerative changes. Electronically Signed: Suresh Candelario MD at 17:20 EDT , Service support ,
== END ==
PROVIDERS: PCP Internal Medicine; Referring Provider Orthopaedic Surgery; Visit Provider Orthopaedic Surgery
DX: M25.561 Pain in right knee (principal)
CPT/HCPCS: 73564

== ENCOUNTER → 2020-06-28 14:36 | Outpatient (CLI) | payer MEDICAID, SELFPAY ==
[2020-06-14 14:35] VITALS: BMI 35.3
[2020-06-23 14:48] VITALS: BMI 35.3
--- NOTE | 2020-06-28 14:38 | CT_ITS ---
STUDY: CT RIGHTLOWER EXTREMITY WITHOUT CONTRAST REASON FOR EXAM: Female, 60 years old. AZEEM KNEE/PAIN RADIATION DOSAGE (If Supplied By Facility): CTDIvol = ( 18.78 ) mGy, DLP = ( 937.90 ) mGycm TECHNIQUE: Thin section transaxial imaging of the ankle was obtained, with sagittal and coronal reconstructed images. Individualized dose optimization techniques were used for this CT. COMPARISON: None. Hip findings: Normal hip joint without articular joint space narrowing. Normal acetabulum. Normal labrum. Normal femoral head. Normal femoral neck and intratrochanteric region. Normal superior and inferior pubic rami. Normal pubic symphysis. Normal ischial tuberosity. Normal origin of the hamstring tendons. Normal visualized iliac wing, sacroiliac joint, and sacral ala. No demonstrated fracture. Unremarkable visualized soft tissue structures of the pelvis. Knee findings: Moderate to significant narrowing demonstrated in the medial compartment in addition to mild peripheral cortical spurring. Mild peripheral cortical spurring of the lateral compartment noted with preservation of the articular space. Mild narrowing of the patellofemoral compartment and osteophyte formation. A small joint effusion is present. No fracture is seen. The soft tissues are unremarkable. Ankle findings: Small corticated ossicle at the undersurface of the medial malleolus are likely due to prior ulcer injury. No acute fracture. Normal distal tibial metaphysis. Normal distal fibula. Normal talus, calcaneus, navicular and cuboid tarsal bones. Normal subtalar, talonavicular and calcaneocuboid articulations. Normal navicular-cuneiform, cuneiform tarsal bones and intercuneiform articulations. Normal tarsometatarsal articulations and visualized metatarsi. The soft tissue structures are grossly normal. CT/Extremity Lower without Contra IMPRESSION: 1. Degenerative changes in the knee and ankle. 2. Unremarkable right hip joint. Electronically Signed: Enrike Almaguer MD at 21:53 EDT , Service support ,
== END ==
PROVIDERS: PCP Internal Medicine; Referring Provider Orthopaedic Surgery; Visit Provider Orthopaedic Surgery
DX: M17.11 Unilateral primary osteoarthritis, right knee (principal)
CPT/HCPCS: 73700

== ENCOUNTER → 2020-07-06 | Outpatient (CLI) | payer MEDICAID, SELFPAY ==
[2020-07-06 14:25] VITALS: BMI 35.3
[2020-07-06 14:45] LABS: Mucous, Urine 0 SEEN /hpf (<or=2+); Red Blood Cells-Urine 0 SEEN /hpf (0-5)
[2020-07-06 17:09] LABS: Color, Urine Yellow (Yellow); Glucose, Dipstick Normal (Normal); Ketone-Dipstick Negative (Negative); Leukocyte Esterase-Dipstick 100 /ul (Negative); Nitrite-Dipstick Positive (Negative); Occult Blood-Urine 10 /ul (Negative); Protein-Dipstick 15 mg/dl (Negative); Specific Gravity, Urine 1.015 (1.002-1.030); Urine Bilirubin Dipstick Negative (Negative); Urine Clarity Clear (Clear); Urine Urobilinogen Normal (Normal)
[2020-07-06 17:24] LABS: Bacteria 2+ /hpf (None Seen); Squamous Epithelial Cells - UA 0-5 SEEN /hpf (5-10); White Blood Cells 5-10 SEEN /hpf (0-5)
== END | disposition home or self-care (01) ==
LOC: LABSPEC 14:44
PROVIDERS: PCP Internal Medicine; Referring Provider Internal Medicine; Visit Provider Internal Medicine
DX: N39.0 Urinary tract infection, site not specified (principal); D72.829 Elevated white blood cell count, unspecified
CPT/HCPCS: 81001; 87086; 87088; 87186

== ENCOUNTER → 2020-07-10 10:22 | Outpatient (CLI) | payer MEDICAID, SELFPAY ==
[2020-07-06 14:25] VITALS: BMI 35.3
[2020-07-10 11:02] LABS: Anion Gap 10 (5-15); BUN 14 mg/dL (7-18); BUN/Creat Ratio 14.5 RATIO (10-20); Chloride 100 mmol/L (98-107); Creatinine, Serum 0.97 mg/dL (0.55-1.02); EST Glomerular Filtration Rate 62 mL/min (>60); Est Glom Filt Rate - Afr Amer 75 mL/min (>60); Glucose 109 mg/dL (74-106); Potassium 3.4 mmol/L (3.5-5.1); Sodium Level 139 mmol/L (136-145)
== END ==
PROVIDERS: PCP Internal Medicine; Referring Provider Internal Medicine; Visit Provider Internal Medicine
DX: E87.6 Hypokalemia (principal)
CPT/HCPCS: 36415; 80048

== ENCOUNTER 2020-07-11 12:39 | Observation (INO) | payer MEDICAID, SELFPAY ==
[2020-06-14 14:35] VITALS: BMI 35.3
[2020-06-28 15:15] LABS: Absolute Lymphocyte Count 4.75 X10^3/uL (0.83-4.51); Absolute Neutrophil Count 9.9 X10^3/uL (2.0-7.7); Basophil# 0.11 X10^3/uL; Basophil% 0.7 % (0-1); Eosinophil# 0.16 X10^3/uL; Hemoglobin 15.9 g/dL (12.0-15.0); Lymphocyte # 4.75 X10^3/ul (4.0); Lymphocyte % 29.1 % (19-41); Mean Corp Hgb Conc 33.1 g/dL (32-36); Mean Corpuscular Hgb 29.9 pg (27.0-32.0); Mean Corpuscular Volume 90.4 fL (81-99); Mean Platelet Vol. 9.1 fl (6.2-12.0); Monocyte# 1.31 X10^3/uL; NRBC Flagged by Analyzer 0 % (0-5); Neutrophil # 9.87 X10^3/uL (2.7-7.7); Neutrophil % 60.5 % (47-70); Platelet Count 344 K/mm3 (150-450); RBC Distribution Width CV 12.8 % (11.6-14.6); RBC Distribution Width SD 41.9 fl (35.1-43.9); Red Blood Count 5.31 M/mm3 (4.2-5.4); White Blood Count 16.3 K/mm3 (4.4-11.0)
--- NOTE | 2020-06-28 15:17 | EKG12_ITS ---
Test Reason : PRE-OP Blood Pressure : / mmHG Vent. Rate : 077 BPM Atrial Rate : 077 BPM P-R Int : 150 ms QRS Dur : 076 ms QT Int : 392 ms P-R-T Axes : 034 044 066 degrees QTc Int : 443 ms Normal sinus rhythm Normal ECG Confirmed by NIRU SARGENT ([id number]), editor newspaper ELAINE DUMONT ([id number]) on 06/30/2020 2:44:13 PM Referred By: Rob Colbert Confirmed By:NIRU SARGENT
[2020-06-28 15:29] LABS: International Normalized Ratio 1.1; Partial Thromboplast Time 30.5 Seconds (24.1-36.2); Prothrombin Time (Protime)PT. 13.7 SECONDS (11.7-14.9)
[2020-06-28 15:36] LABS: Anion Gap 6 (5-15); BUN 16 mg/dL (7-18); BUN/Creat Ratio 18.6 RATIO (10-20); Chloride 97 mmol/L (98-107); Creatinine, Serum 0.86 mg/dL (0.55-1.02); EST Glomerular Filtration Rate 71 mL/min (>60); Est Glom Filt Rate - Afr Amer 86 mL/min (>60); Glucose 99 mg/dL (74-106); Magnesium 2.4 mg/dL (1.6-2.6); Potassium 3.3 mmol/L (3.5-5.1); Sodium Level 133 mmol/L (136-145)
[2020-07-05 17:14] LABS: Absolute Neutrophil Count 8.2 X10^3/uL (2.0-7.7); Basophil# 0.11 X10^3/uL; Basophil% 0.9 % (0-1); Eosinophil# 0.21 X10^3/uL; Eosinophils% 1.6 % (0-5); Hemoglobin 14.4 g/dL (12.0-15.0); Lymphocyte % 26.4 % (19-41); Mean Corp Hgb Conc 32.7 g/dL (32-36); Mean Corpuscular Hgb 30.3 pg (27.0-32.0); Mean Corpuscular Volume 92.4 fL (81-99); Mean Platelet Vol. 9.2 fl (6.2-12.0); Monocyte# 0.89 X10^3/uL; Monocyte% 6.9 % (0-10); NRBC Flagged by Analyzer 0 % (0-5); Neutrophil % 63.8 % (47-70); Platelet Count 287 K/mm3 (150-450); RBC Distribution Width CV 13.1 % (11.6-14.6); RBC Distribution Width SD 44.1 fl (35.1-43.9); Red Blood Count 4.76 M/mm3 (4.2-5.4); White Blood Count 12.9 K/mm3 (4.4-11.0)
[2020-07-05 17:27] LABS: Anion Gap 7 (5-15); BUN 17 mg/dL (7-18); Calcium,Total 8.7 mg/dL (8.5-10.1); Chloride 100 mmol/L (98-107); Creatinine, Serum 0.95 mg/dL (0.55-1.02); EST Glomerular Filtration Rate 64 mL/min (>60); Est Glom Filt Rate - Afr Amer 77 mL/min (>60); Glucose 111 mg/dL (74-106); Sodium Level 137 mmol/L (136-145)
[2020-07-05 17:56] LABS: Erythrocyte Sedimentation Rate 41 mm/hr (0-30)
[2020-07-05 18:34] LABS: CRP 8.04 mg/L (0.0-3.0)
[2020-07-06 14:25] VITALS: BMI 35.3
[2020-07-11] VITALS (23 sets, daily range): BP systolic 84–135; BP diastolic 52–77; PULSE 72–83; RESP 16–20; TEMP 36.5–37.1; O2SAT 93–98; BMI 35.4; BMI 35.9
--- NOTE | 2020-07-11 07:23 | PCM.HP.BLA ---
History and Physical Date of Admission: 07/11/20 Intake Vital Signs 06/14/20 BMI 35.3 Intake Visit Reasons: RIGHT KNEE Is patient in pain?: Yes Pain scale (1-10): 8 Allergies paroxetine [From Paxil] Allergy (Verified 06/14/20 14:05) suicidal thoughts bupropion [From Wellbutrin] Adverse Reaction (Severe, Verified 06/14/20 14:05) suicidal thoughts oxycodone HCl [From Percocet] Adverse Reaction (Verified 06/14/20 14:05) Itching Penicillins Adverse Reaction (Verified 06/14/20 14:05) YEAST INFECTION [facility] Social History (Updated 06/14/20 @ 14:[address] Rob Colbert DO) alcohol intake: current alcohol intake frequency: holidays/special occasions only substance use type: does not use what type of physical activity do you participate in: none HPI RIGHT KNEE: Details: Parts of this documentation were recorded by a scribe, this documentation accurately reflects the service provided and the decisions made by me, Dr. Rob Colbert DO 06/14/20 0750. NATALIA MARQUEZ is a 60 year old F here today for continued right knee pain. She complains of pain over her entire knee especially over her medial knee. She complains of clicking and swelling. She had a zilretta injection on 03/27/20 which was helpful to her lateral knee pain but her medial knee pain is worsened. She denies any bracing. She denies any recent physical therapy although she has completed a home exercise program. She took meloxicam which was mildly helpful. ROS Musc Reports joint pain, Reports joint swelling, Denies numbness, Denies tingling Skin/Breast Reports system reviewed and no additional complaints, except as docu Neuro Yes system reviewed and no additional complaints, except as docu, No numbness, No tingling Ortho Exam Right Knee Skin/Wound: Yes CDI, No erythema, No ecchymosis, No swelling Homans Sign: No Knee ROM: Yes ROM-Extension -20 to 0 (-12), Yes ROM-Flexion 0-140 (95) Examination: Yes Med jt line tenderness Stability: NML: Anterior Drawer, NML: Posterior Drawer, NML: Valgus 30, NML: Varus 30 Patella Grind: No Supplemental Info 06/14/2020 x-ray right knee moderate to severe medial joint space narrowing subchondral sclerosis spurring of the medial and lateral compartments and patellofemoral compartment 10/25/2019 x-ray right knee moderate patellofemoral spurring moderate to severe medial and lateral joint space narrowing Assessment & Plan Problems 1. Primary osteoarthritis of right knee M17.11 Plan Spoke with the patient about her options- gel injections, although they are more effective with mild arthritis, or bracing or a TKA. Explained the surgery procedure and recovery for a TKA. Spoke with her about iovera prior to the procedure. She might not have relief for about 3 months post op. She will need to complete formal physical therapy following her surgery. 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 She will be at an increased risk due to history. She will be staying the night due to her increased risk. Patient will be on a blood thinner for 2 weeks post op to prevent blood clot. She will not be able to take NSAIDs for 1 week prior to surgery and 2 weeks following. Patient will need a CT scan prior to her surgery. She would like to proceed with a TKA. Reviewed the pre-operative plans with the patient. Risks and benefits of the procedure were fully explained, including but not limited to infection, neurovascular injury, continued pain, arthritis, stiffness, need for further surgery, re-injury, DVT, PE, general risks of anesthesia, and loss of limb or life. The patient understands all the risks and does wish to proceed with written consent. Follow up for 2 week post op or sooner if pain, swelling, numbness or associated symptoms, or concerns develop. All questions answered. Patient in agreement of plan. Orders Orders: Knee 4 or More Views Today M25.561 Coding Level of Care Code Off vis,est,level 3 Diagnoses Primary osteoarthritis of right knee M17.11 ??Osteoarthritis type: primary I have re-examined the patient. There are no clinical changes since date of exam Procedure Criteria Procedure Type: Elective COVID Risk Discussion: The surgeon/proceduralist and patient have discussed in detail the risk of exposure to and/or potential harm posed by the COVID-19 virus with having a surgery/procedure at this time versus the risk of delaying the surgery/procedure. It is not possible to know either the risk of delaying the surgery or procedure or chance of getting an infection with perfect accuracy, but a joint decision was made between the patient and the surgeon/proceduralist to proceed at this time with the scheduled surgery/procedure as indicated on the consent form.
[2020-07-11 07:25] LABS: Bedside Glucose 116 mg/dL (70-110)
[2020-07-11] MEDS: Lactated Ringers 1,000 ML 100 ML IV (07:35)
[2020-07-11 07:46] LABS: Anion Gap 6 (5-15); BUN 16 mg/dL (7-18); BUN/Creat Ratio 17.7 RATIO (10-20); Calcium,Total 8.8 mg/dL (8.5-10.1); Chloride 105 mmol/L (98-107); EST Glomerular Filtration Rate 68 mL/min (>60); Est Glom Filt Rate - Afr Amer 82 mL/min (>60); Glucose 116 mg/dL (74-106); Potassium 3.1 mmol/L (3.5-5.1); Sodium Level 137 mmol/L (136-145)
[2020-07-11] MEDS: Scopolamine 1mg/72hr Patch 1 PATCH TRANSDERM. (07:57)
[2020-07-11] MEDS: Acetaminophen 500 MG Tablet 1000 MG PO ×3 (07:58→21:19)
[2020-07-11] MEDS: Gabapentin 600 MG Tablet PO (07:58)
[2020-07-11] MEDS: Metoprolol Tartrate 25 MG Tablet PO ×2 (09:54→21:19)
[2020-07-11] MEDS: Pantoprazole Sodium 40 MG Tablet PO (09:54)
[2020-07-11] MEDS: Epinephrine (1 mg/ml) 1 MG/ML VIAL (12:00)
[2020-07-11] MEDS: Betamethasone/Betamethasone 30 MG/5 ML Vial (12:00)
[2020-07-11] MEDS: Bupivacaine 0.5% PF 10 ML VIAL (12:00)
[2020-07-11] MEDS: 0.9% Normal Saline (Pres. free 10 ML Vial (12:00)
--- NOTE | 2020-07-11 12:40 | RAD_ITS ---
STUDY: X-RAY - RIGHT KNEE REASON FOR EXAM: Female, 60 years old. Post-op total knee. TECHNIQUE: AP and lateral view(s) of the knee. COMPARISON: Comparison is made with prior study 06/14/2020. FINDINGS: Normal visualized distal femur. Normal visualized proximal tibia and fibula. Normal proximal tibiofibular articulation. The patient is status post total knee replacement. There is good alignment. Postoperative soft tissue changes. RAD/Knee 1 or 2 Views IMPRESSION: Status post total knee replacement. There is good alignment. Postoperative soft tissue changes. Electronically Signed: Jorge Doherty, at 13:30 EDT , Service support ,
[2020-07-11] MEDS: Lactated Ringers 1,000 ML 125 ML IV ×4 (12:47→18:32)
[2020-07-11] MEDS: Cefazolin 1 GM/50 ML BAG IV ×2 (14:03→21:15)
[2020-07-11] MEDS: Gabapentin 300 MG Capsule PO (17:00)
[2020-07-11] MEDS: Ketorolac 15 MG/ML Vial IV (17:04)
[2020-07-11] MEDS: HYDROcodone Bitartrate/Apap 5/325 Tablet PO (18:36)
[2020-07-11] MEDS: Senna/Docusate Sodium 1 Tablet 2 TABLET PO (21:15)
[2020-07-11] MEDS: Venlafaxine XR 150 MG Capsule PO (21:16)
[2020-07-12 00:32] VITALS: BP 110/75; PULSE 71; RESP 16; TEMP 36.6; O2SAT 95
[2020-07-12] MEDS: Ketorolac 15 MG/ML Vial IV (00:43)
[2020-07-12 04:32] VITALS: BP 105/66; PULSE 69; RESP 16; TEMP 36.6; O2SAT 96
[2020-07-12] MEDS: Cefazolin 1 GM/50 ML BAG IV (05:38)
[2020-07-12 06:29] LABS: Hemoglobin 11.4 g/dL (12.0-15.0); Mean Corp Hgb Conc 33.5 g/dL (32-36); Mean Corpuscular Hgb 31.2 pg (27.0-32.0); Mean Corpuscular Volume 93.2 fL (81-99); Mean Platelet Vol. 9.7 fl (6.2-12.0); Platelet Count 223 K/mm3 (150-450); RBC Distribution Width CV 12.7 % (11.6-14.6); RBC Distribution Width SD 43.5 fl (35.1-43.9); Red Blood Count 3.65 M/mm3 (4.2-5.4); White Blood Count 17.4 K/mm3 (4.4-11.0)
[2020-07-12 07:12] LABS: Anion Gap 5 (5-15); BUN 9 mg/dL (7-18); BUN/Creat Ratio 13.2 RATIO (10-20); Calcium,Total 8.5 mg/dL (8.5-10.1); Chloride 105 mmol/L (98-107); Creatinine, Serum 0.68 mg/dL (0.55-1.02); EST Glomerular Filtration Rate 93 mL/min (>60); Est Glom Filt Rate - Afr Amer 113 mL/min (>60); Estimated Creatinine Clearance 81.33 ml/min; Glucose 139 mg/dL (74-106); Potassium 3.7 mmol/L (3.5-5.1); Sodium Level 140 mmol/L (136-145)
--- NOTE | 2020-07-12 07:17 | DCINST_ITS ---
Discharge Diet: No Restrictions Call your doctor if you observe: Shortness of breath, Chest pain Additional Instructions: Ice and elevate one week while not ambulating. Ambulation is encouraged. Weightbearing as tolerated. Use assistive devise for stability. Encourage FULL knee extension and flexion 1 time EVERY time you get up and down and MULTIPLE times per day. No showering 72 hours after surgery. Begin showering postop day #3. Remove the dressing prior to shower and gently wash with warm water and antibacterial soap then pat dry and place abdominal pad (or plain gauze) and DANDRE hose over top. This is to be done daily. Do not submerge for 3 weeks. If not showering daily after the initial 72 hours then you must clean incision and change dressing daily. Do not allow animals near the incision area. Keep clean. Follow anticoagulation recommendations as prescribed. Do not take any NSAIDs w hile on blood thinner. Do not take any additional narcotic pain medication other than what was prescribed on you surgery day without discussing with physician. Start physical therapy. If you are not currently scheduled for physical therapy or you are unsure of appointment time please call office [facility] to arrange. Call Dr. Colbert with any concerns. Allergies/Adverse Reactions: Allergies paroxetine [From Paxil] Allergy (Verified 07/06/20 14:24) suicidal thoughts bupropion [From Wellbutrin] Adverse Reaction (Severe, Verified 07/06/20 14:24) suicidal thoughts oxycodone HCl [From Percocet] Adverse Reaction (Verified 07/06/20 14:24) Itching Penicillins Adverse Reaction (Verified 07/06/20 14:24) YEAST INFECTION Medications to take at Discharge Metoprolol Tartrate 25 mg PO BID 11/21/15 aspirin 81 mg chewable tablet 81 mg PO DAILY 09/16/18 omeprazole 40 mg capsule,delayed release 40 mg PO QAM #60 cap 05/12/20 Gabapentin [Neurontin] 300 mg PO TID 06/20/20 Hydrochlorothiazide [Hctz] 25 mg PO QAM 06/20/20 Simvastatin 40 mg PO QPM 06/20/20 Venlafaxine HCl [Venlafaxine HCl ER] 150 mg PO DAILY 06/20/20 Zolpidem Tartrate 5 - 10 mg PO QHS PRN PRN 06/20/20 ascorbic acid (vitamin C) 500 mg tablet 500 mg PO DAILY #90 tab 06/27/20 cephalexin 500 mg capsule 500 mg PO TID #15 cap 07/06/20 potassium chloride 20 mEq tablet,extended release 40 meq PO BID 90 Days #360 tab 07/10/20 Apixaban [Eliquis] 2.5 mg PO BID #28 tab 07/12/20 Hydrocodone Bitart/Apap 5-325 [[place] 5/325] 1 - 2 tab PO Q4H PRN PRN #60 tab 07/12/20 The following prescriptions were given: Apixaban [Eliquis] 2.5 mg PO BID #28 tab Transmission Status: Pending to [facility] Hydrocodone Bitart/Apap 5-325 [[place] 5/325] 1 - 2 tab PO Q4H PRN PRN #60 tab PRN Reason: Pain Score 1-10/10 Transmission Status: Received by [facility] Orders to be completed after discharge: 12 Lead EKG [[facility]] Time Frame: 06/20/20, Facility: [facility], Location: Cardiovascular Services Primary Care Physician: Ryan Leyva MD [Primary Care Provider] - Test Results: Test results from this visit will be discussed in further detail at your follow- up appointment, if applicable. Please Follow Up With: Rob Colbert DO When: 2 week
--- NOTE | 2020-07-12 07:20 | PCM.DC.SUM ---
Discharge Date and Diagnosis Date of Admission: 07/11/20 Date of Discharge: 07/12/20 - Secondary Discharge Diagnosis Chronic Problems: Chronic Problems (Last Reviewed 11/22/19 @ 10:20 by Cristin Tubbs) GERD (gastroesophageal reflux disease) (Chronic) Depression with anxiety (Chronic) Fibromyalgia (Chronic) Anxiety (Chronic) Potassium (K) deficiency (Chronic) Arthritis (Chronic) Obesity (BMI 30-39.9) (Chronic) Nonrheumatic mitral valve prolapse (Chronic) Hyperlipidemia (Chronic) Hypertension (Chronic) Hospital Course and Treatment Operations: None Summary of Care Provided: The patient is a 60 year old F who has long history of degenerative joint disease to the knee who has failed conservative treatment and wished to undergo elective total knee arthroplasty. Patient underwent the aformentioned procedure on the admission date without any intraoperative complications. Patient did receive pre-and postoperative antibiotics which were discontinued within 23 hours postoperatively. Patient did receive spinal anesthesia as well as an adductor canal block postoperatively. pain was controlled with IV and transition to p.o. pain medication Patient will be discharged home with oxycodone and will continue Tylenol as well. Patient had minimal intraoperative blood loss and 2gm tranexamic acid was administered there was no need for postoperative blood transfusion Patients vital signs remained stable. Patient was started on both mechanical and chemical DVT per prophylaxis postoperatively in the form of SCDs DANDRE hose and Eliquis 2.5 mg twice daily for which she will continue for 2 additional weeks post hospital discharge. thigh high dandre hose placed over top of the meplix silver dressing. This should be removed 72 hrs post operatively and showering begun daily at that time with warm water and antibacterial soap. not to submerge for 3 weeks. To change dressing daily after first dressing change. Patient will follow-up in the office in 2 weeks. No intrahospital complications. - Physical Exam Vitals/I&O's: Vital Signs Temp Pulse Resp BP Pulse Ox 97.8 F 69 16 105/66 96 07/12/20 04:32 07/12/20 04:32 07/12/20 04:32 07/12/20 04:32 07/12/20 04:32 Oxygen Flow Rate (L/min) 2 Oxygen Delivery Method Room Air Weight: 223 lb Body Mass Index (BMI) 35.9 Intake and Output for Last 24 Hours 08/10/20 08/11/20 08/12/20 23:59 23:59 23:59 Intake Total 5486.75 / 6286.75 2149 Output Total 2049 Balance 5486.75 / 4536.75 100 / 100 General: Alert, Cooperative, No apparent distress Extremities: - - Dressing clean dry and intact compartment soft neurovascular intact Laboratory Results 07/11/20 07:20: POC Glucose 116 H 07/11/20 07:20: Sodium 137, Potassium 3.1 L, Chloride 105, Carbon Dioxide 26.0, Anion Gap 6, BUN 16, Creatinine 0.90, Est GFR (MDRD) Af Amer 82, Est GFR (MDRD) Non-Af 68, BUN/Creatinine Ratio 17.7, Glucose 116 H, Calcium 8.8 07/12/20 06:02: WBC 17.4 H, RBC 3.65 L, Hgb 11.4 L, Hct 34.0 L, MCV 93.2, MCH 31.2, MCHC 33.5, RDW Std Deviation 43.5, RDW Coeff of Vijaya 12.7, Plt Count 223, MPV 9.7 07/12/20 06:02: Sodium 140, Potassium 3.7, Chloride 105, Carbon Dioxide 30.0, Anion Gap 5, BUN 9, Creatinine 0.68, Estim Creat Clear Calc 81.33, Est GFR (MDRD) Af Amer 113, Est GFR (MDRD) Non-Af 93, BUN/Creatinine Ratio 13.2, Glucose 139 H, Calcium 8.5 Current Medications Acetaminophen (Tylenol) 1,000 mg PO Q8 [facility] Last Admin: 07/12/20 05:40 Dose: Not Given Documented by: Hydrocodone Bitart/Acetaminophen ([place] 5mg-325mg) 1 - 2 tablet PO Q4H PRN PRN PRN Reason: Pain Score 1-1010 Last Admin: 07/11/20 18:36 Dose: 2 tablet Documented by: Apixaban (Eliquis) 2.5 mg PO BID [facility] Ascorbic Acid (Vitamin C) 500 mg PO DAILY [facility] Atorvastatin Calcium (Lipitor) 20 mg PO QPM [facility] Last Admin: 07/11/20 21:16 Dose: Not Given Documented by: Diphenhydramine HCl (Benadryl) 50 mg PO TID PRN PRN PRN Reason: ITCHING Gabapentin (Neurontin) 300 mg PO TIDCM [facility] Last Admin: 07/11/20 17:00 Dose: 300 mg Documented by: Hydromorphone HCl (Dilaudid Inj) 0.5 mg IV Q2H PRN PRN PRN Reason: Pain Score 6-10/10 Lactated Ringer's () 1,000 mls @ 125 mls/hr IV .Q8H [facility] Last Infusion: 07/12/20 05:36 Dose: Infused Documented by: Cefazolin Sodium () 1 gm in 50 mls @ 100 mls/hr IV Q8 [facility] Last Infusion: 07/12/20 06:23 Dose: Infused Documented by: Insulin Human Lispro (Humalog Kwikpen ([facility] [place])) 1 - 6 unit SC Q4H PRN PRN; Protocol PRN Reason: BG>/= 180, SEE PROTOCOL Ketorolac Tromethamine (Toradol ([facility])) 15 mg IV Q6H PRN PRN PRN Reason: Pain Score 1-5/10 Stop: 07/13/20 12:40 Last Admin: 07/12/20 00:43 Dose: 15 mg Documented by: Metoprolol Tartrate (Lopressor (Beta Zoya)) 25 mg PO BID [facility] Last Admin: 07/11/20 21:19 Dose: 25 mg Documented by: Ondansetron HCl (Zofran) 4 mg IV Q6H PRN PRN PRN Reason: NAUSEA Pantoprazole Sodium (Protonix) 40 mg PO DAILY [facility] Pot[facility] Last Admin: 07/11/20 16:58 Dose: 40 meq Documented by: Senna/Docusate Sodium (Senokot-S, Winifred-Colace) 2 tablet PO BID [facility] Last Admin: 07/11/20 21:15 Dose: 2 tablet Documented by: Sodium Chloride () 10 - 40 ml IV UD PRN PRN Reason: SALINE FLUSH Venlafaxine HCl (Effexor Xr) 150 mg PO DAILY@2100 [facility] Last Admin: 07/11/20 21:16 Dose: 150 mg Documented by: Zolpidem Tartrate (Ambien (Generic)) 5 mg PO QHS PRN PRN Reason: SLEEP Discharge Diet: No Restrictions Call your doctor if you observe: Shortness of breath, Chest pain Home Medications: Medications to take at Discharge Metoprolol Tartrate 25 mg PO BID 11/21/15 aspirin 81 mg chewable tablet 81 mg PO DAILY 09/16/18 omeprazole 40 mg capsule,delayed release 40 mg PO QAM #60 cap 05/12/20 Gabapentin [Neurontin] 300 mg PO TID 06/20/20 Hydrochlorothiazide [Hctz] 25 mg PO QAM 06/20/20 Simvastatin 40 mg PO QPM 06/20/20 Venlafaxine HCl [Venlafaxine HCl ER] 150 mg PO DAILY 06/20/20 Zolpidem Tartrate 5 - 10 mg PO QHS PRN PRN 06/20/20 ascorbic acid (vitamin C) 500 mg tablet 500 mg PO DAILY #90 tab 06/27/20 cephalexin 500 mg capsule 500 mg PO TID #15 cap 07/06/20 potassium chloride 20 mEq tablet,extended release 40 meq PO BID 90 Days #360 tab 07/10/20 Apixaban [Eliquis] 2.5 mg PO BID #28 tab 07/12/20 Hydrocodone Bitart/Apap 5-325 [[place] 5/325] 1 - 2 tab PO Q4H PRN PRN #60 tab 07/12/20 Following Prescriptions Were Given to Patient: Apixaban [Eliquis] 2.5 mg PO BID #28 tab Transmission Status: Received by [facility] Hydrocodone Bitart/Apap 5-325 [[place] 5/325] 1 - 2 tab PO Q4H PRN PRN #60 tab PRN Reason: Pain Score 1-10/10 Transmission Status: Received by [facility] Other Amb Orders: 12 Lead EKG [[facility]] Time Frame: 06/20/20, Facility: [facility], Location: Cardiovascular Services Primary Care Physician: Ryan Leyva MD [Primary Care Provider] - Please Follow Up With: Rob Colbert DO When: 2 week Additional Instructions: Ice and elevate one week while not ambulating. Ambulation is encouraged. Weightbearing as tolerated. Use assistive devise for stability. Encourage FULL knee extension and flexion 1 time EVERY time you get up and down and MULTIPLE times per day. No showering 72 hours after surgery. Begin showering postop day #3. Remove the dressing prior to shower and gently wash with warm water and antibacterial soap then pat dry and place abdominal pad (or plain gauze) and DANDRE hose over top. This is to be done daily. Do not submerge for 3 weeks. If not showering daily after the initial 72 hours then you must clean incision and change dressing daily. Do not allow animals near the incision area. Keep clean. Follow anticoagulation recommendations as prescribed. Do not take any NSAIDs while on blood thinner. Do not take any additional narcotic pain medication other than what was prescribed on you surgery day without discussing with physician. Start physical therapy. If you are not currently scheduled for physical therapy or you are unsure of appointment time please call office [facility] to arrange. Call Dr. Colbert with any concerns. Medical Necessity - Tobacco Use Smoking Status: Never smoker Meaningful Use Info Meaningful Use Diagnoses (Choose all that apply): None applicable
[2020-07-12 08:15] VITALS: BP 113/55; PULSE 75; RESP 16; TEMP 36.4; O2SAT 98
[2020-07-12] MEDS: Ascorbic Acid 500 MG Tablet PO (08:15)
[2020-07-12] MEDS: Gabapentin 300 MG Capsule PO ×2 (08:15→11:45)
[2020-07-12] MEDS: Senna/Docusate Sodium 1 Tablet 2 TABLET PO (08:15)
[2020-07-12] MEDS: APIXABAN 2.5 MG TABLET PO (08:15)
[2020-07-12] MEDS: Pantoprazole Sodium 40 MG Tablet PO (08:15)
[2020-07-12 08:17] VITALS: PULSE 75
[2020-07-12] MEDS: Metoprolol Tartrate 25 MG Tablet PO (08:17)
[2020-07-12] MEDS: HYDROcodone Bitartrate/Apap 5/325 Tablet PO ×2 (08:21→14:02)
--- NOTE | 2020-07-12 11:20 | CASEMGMT ---
RN CM Face to Face with patient for initial transition planning/care coordination assessment. RN CM introduced self and role at [facility]. Patient sitting in chair, alert and oriented. Patient willing to participate in assessment and is able to answer all questions appropriately. Care providers, pharmacy, and demographics verified. Patient wishes to discharge home, and is setup with [facility] for outpatient therapy. Patient states she has no further needs or concerns at this time. CM to follow for discharge planning needs that may arise. PCP: Autumn Specialists: geovanna Colbert; radha Flores Preferred Pharmacy: [facility] Insurance: [facility] Prescription Benefit: yes Living Will/HPOA: yes, daughter Victoria Sky LNOK: Daughter Living Arrangements: Patient lives with significant other in a 2 story home with railing x1. Patient states she was independent at home prior to surgery. Transportation: daughter DME/HHC: Patient states she has BSC, rollator, and knee scooter at home. Patient is scheduled for outpatient therapy for at [facility] Disposition Plan: Patient to discharge home with outpatient therapy, family support, and follow-up plans in place. Isaura RAMIREZN, RN, CM
--- NOTE | 2020-07-12 12:05 | PHA.DC.MC ---
Pharmacy Service has performed discharge medication reconciliation and counseling for this patient. 1. APIXABAN 2.5MG PO BID X 14 DAYS 2. HYDROCODONE/ACETAMINOPHEN 5/325MG 1-2T PO Q4H PRN PAIN The patient's discharge medication list was reviewed for discrepancies and discrepancies were resolved. Home Medications Metoprolol Tartrate 25 mg PO BID 11/21/15 aspirin 81 mg chewable tablet 81 mg PO DAILY 09/16/18 omeprazole 40 mg capsule,delayed release 40 mg PO QAM #60 cap 05/12/20 Gabapentin [Neurontin] 300 mg PO TID 06/20/20 Hydrochlorothiazide [Hctz] 25 mg PO QAM 06/20/20 Simvastatin 40 mg PO QPM 06/20/20 Venlafaxine HCl [Venlafaxine HCl ER] 150 mg PO DAILY 06/20/20 Zolpidem Tartrate 5 - 10 mg PO QHS PRN PRN 06/20/20 ascorbic acid (vitamin C) 500 mg tablet 500 mg PO DAILY #90 tab 06/27/20 cephalexin 500 mg capsule 500 mg PO TID #15 cap 07/06/20 potassium chloride 20 mEq tablet,extended release 40 meq PO BID 90 Days #360 tab 07/10/20 Apixaban [Eliquis] 2.5 mg PO BID #28 tab 07/12/20 Hydrocodone Bitart/Apap 5-325 [[place] 5/325] 1 - 2 tab PO Q4H PRN PRN #60 tab 07/12/20 The patient was counseled on the following discharge medications and changes in medications for homegoing were reviewed. The Reason for Use, instructions for use, and potential side effects were reviewed for all new medications. The patient's questions regarding all of their medications were answered. The patient was able to verbally demonstrate an understanding of their discharge medications. Patient was counseled by pharmacy tech customer service, Earnestine.
[2020-07-12 14:00] VITALS: BP 118/67; PULSE 76; RESP 16; TEMP 36.4; O2SAT 99
--- NOTE | 2020-07-17 16:40 | OP.PCM_ITS ---
Report of Operation Date of Procedure: 07/11/20 Description of Surgical Findings:: Preoperative diagnosis: Right knee DJD Postoperative diagnosis: Same Procedure: Right total knee arthroplasty CT guided Robotic Assisted Implant: David triathlon press fit femoral component , press-fit tibial baseplate size, press fit asymmetric patella size , polyethylene X3 CS Anesthesia: Spinal with adductor canal block Tourniquet 300 mmHg] Complications: None Condition: Stable to PACU Estimated blood loss: 200 cc Indication for procedure: This is a 60-year-old female with long standing degenerative joint disease of the knee who has failed conservative treatment and wished to proceed with elective total knee arthroplasty. Risk benefits and alternatives were reviewed including; risk of bleeding, infection, nerve artery and tissue damage, continued pain, postoperative stiffness, venous thromboembolism, need for postoperative rehabilitation, mechanical feel to the knee, and expected postoperative course. The operative CT and templating was performed with component sizing Procedure: The patient was met in the preoperative holding area. The operative extremity was identified by both patient and physician and was marked. Patient was met by anesthesia. An adductor canal block was placed by anesthesia pos toperatively the patient was brought back to the operating room on a wheeled cart and transferred to the operating table in the supine position. Anesthesia was started. A well-padded tourniquet was placed on the operative extremity. The patient was prepped and draped in the usual sterile fashion. A timeout was called to ensure the proper patient procedure and extremity were being contemplated. An Esmarch was used to exsanguinate the extremity. The tourniquet was inflated. A 10 blade scalpel was used to make a midline incision down through the skin and subcutaneous tissue. Skin retractors placed. Bovie was used to perform meticulous hemostasis. full-thickness flaps were elevated medial and lateral along the joint capsule. A deep blade scalpel was used to perform a medial parapatellar arthrotomy. The knee was brought to full extension. A Bovie was used to release the soft tissues off the most proximal aspect of the medial tibial plateau a three-quarter inch curved osteotome was also used for this process. The infrapatellar fat pad was excised. The fat pad was excised partially anterior lateral portion the anterior medial was elevated from the femur. At this point our intra-articular femoral array was placed of a 45 degree angle proximal and posterior to the medial epicondyle. Our tibial array was placed greater than 1 hands breath below the incision at a 20 degree angle stab incisions were used for this case were attached and checked with the robotic software. Tourniquet was let down. At this point registration addison were taken throughout the knee as well as checkpoints placed in the femur and tibia once the knee was registered then tensioned the medial and lateral ligaments in extension and 90 degrees of flexion. We then used these numbers to adjust our components within parameters to balance the knee in both flexion and extension once this was done on our monitor we then proceeded with using the robotic arm to make our tibial plateau cut and anterior posterior and chamfer cuts on the femur we then trialed and achieved the desired plan with a well- balanced knee. Lug holes were drilled in the femur the tibia preparation was completed with a fin punch and the patella was prepared by first using a caliper to ensure sufficient bone stock and a patellar reamer to remove the desired amount of bone locals were drilled for an asymmetric poly-. We then brought the knee through range of motion with excellent patellar tracking. We thoroughly irrigated the knee with a trial components were removed a posterior capsular injection with her standard cocktail was performed the aqua Mantis was also used to aid in hemostasis. Betadine rinse was allowed to sit and washed out components were press-fit into place. Aricept rinse was then used followed by several more rate liters of irrigation after it was allowed to sit. Joint capsule was closed with #1 Ethibond [id number]'s followed by Vicryl in the subcutaneous tissues staple in the skin arrays and checkpoints were removed prior to closure all counts were correct stab incisions were closed with a stable standard dressing in the form of Mepilex for the main incision Xeroform 4 x 4 and Tegaderm over pin site holes. Thigh-high DANDRE hose applied over top of dressing. Patient tolerated the procedure well and was directed to PACU in stable condition no intraoperative complications
== END 2020-07-12 15:20 | disposition home or self-care (01) ==
LOC: SDC 12:50 → MS3 12:50
PROVIDERS: Anesthesiology; Admitting Provider Orthopaedic Surgery; PCP Internal Medicine; Referring Provider Orthopaedic Surgery; Visit Provider Orthopaedic Surgery
PROC: 0SRC0JZ Replacement of Right Knee Joint with Synthetic Substitute, Open Approach (ICD-10-PCS; CPT 27447; principal; 2020-07-11 09:30)
DX: M17.11 Unilateral primary osteoarthritis, right knee (principal); Z11.59 Encounter for screening for other viral diseases; K21.9 Gastro-esophageal reflux disease without esophagitis; E78.5 Hyperlipidemia, unspecified; I10 Essential (primary) hypertension; F41.8 Other specified anxiety disorders; M79.7 Fibromyalgia; E66.9 Obesity, unspecified; Z86.14 Personal history of Methicillin resistant Staphylococcus aureus infection; Z79.899 Other long term (current) drug therapy; Z79.82 Long term (current) use of aspirin; Z79.01 Long term (current) use of anticoagulants; Z68.35 Body mass index [BMI] 35.0-35.9, adult
CPT/HCPCS: 01400; 27447; 64447; S2900; 36415; 73560; 80048; 82962; 83735; 85025; 85027; 85610; 85652; 85730; 86140; 86850; 86900; 86901; 87077; 87081; 87635; 93005; 94799; 96361; 96365; 96366; 96375; 96376; 97110; 97116; 97161; 97166; 97530; 99218; 99251; C1776; J7040; J7120; G0378; G0379; G0463; J0702; J3490; U0003

== ENCOUNTER → 2020-07-19 14:50 | Outpatient (CLI) | payer MEDICAID, SELFPAY ==
[2020-07-19 07:58] VITALS: BMI 35.9
--- NOTE | 2020-07-19 14:50 | RAD_ITS ---
STUDY: X-RAY - RIGHT KNEE REASON FOR EXAM: Female, 60 years old. 1 WEEK POST OP TECHNIQUE: 3 view(s) of the knee. COMPARISON: 07/11/2020. FINDINGS: There is a total knee arthroplasty in place that is stable and grossly anatomic in alignment. There are postsurgical changes within the soft tissues of the ventral knee that are less pronounced than the prior examination. RAD/Knee 4 or More Views IMPRESSION: Status post total knee arthroplasty, grossly anatomic in alignment. Electronically Signed: Soraida Ferreira MD at 16:33 EDT Tel , Service support ,
== END ==
PROVIDERS: PCP Internal Medicine; Referring Provider Orthopaedic Surgery; Visit Provider Orthopaedic Surgery
DX: M25.561 Pain in right knee (principal)
CPT/HCPCS: 73564

== ENCOUNTER → 2020-08-05 09:38 | Outpatient (CLI) | payer MEDICAID, SELFPAY ==
[2020-08-02 12:49] VITALS: BMI 35.9
[2020-08-05 11:17] LABS: Anion Gap 11 (5-15); BUN 9 mg/dL (7-18); Calcium,Total 8.8 mg/dL (8.5-10.1); Chloride 96 mmol/L (98-107); Creatinine, Serum 0.82 mg/dL (0.55-1.02); EST Glomerular Filtration Rate 75 mL/min (>60); Est Glom Filt Rate - Afr Amer 91 mL/min (>60); Glucose 162 mg/dL (74-106); Sodium Level 134 mmol/L (136-145)
[2020-08-05 11:22] LABS: Potassium 2.6 mmol/L (3.5-5.1)
== END ==
PROVIDERS: PCP Internal Medicine; Referring Provider Internal Medicine; Visit Provider Internal Medicine
DX: E87.6 Hypokalemia (principal)
CPT/HCPCS: 36415; 80048

== ENCOUNTER → 2020-08-07 10:42 | Outpatient (CLI) | payer MEDICAID, SELFPAY ==
[2020-08-02 12:49] VITALS: BMI 35.9
[2020-08-07 10:59] LABS: Absolute Lymphocyte Count 3.54 X10^3/uL (0.83-4.51); Absolute Neutrophil Count 3.3 X10^3/uL (2.0-7.7); Basophil# 0.08 X10^3/uL; Eosinophils% 5.1 % (0-5); Hematocrit 39.3 % (37-47); Hemoglobin 12.8 g/dL (12.0-15.0); Lymphocyte # 3.54 X10^3/ul (4.0); Lymphocyte % 44.8 % (19-41); Mean Corp Hgb Conc 32.6 g/dL (32-36); Mean Corpuscular Hgb 30.2 pg (27.0-32.0); Mean Corpuscular Volume 92.7 fL (81-99); Mean Platelet Vol. 8.9 fl (6.2-12.0); Monocyte# 0.58 X10^3/uL; Monocyte% 7.3 % (0-10); NRBC Flagged by Analyzer 0 % (0-5); Neutrophil # 3.27 X10^3/uL (2.7-7.7); Neutrophil % 41.4 % (47-70); Platelet Count 353 K/mm3 (150-450); RBC Distribution Width SD 43.4 fl (35.1-43.9); Red Blood Count 4.24 M/mm3 (4.2-5.4); White Blood Count 7.9 K/mm3 (4.4-11.0)
[2020-08-07 11:32] LABS: Anion Gap 9 (5-15); BUN 7 mg/dL (7-18); BUN/Creat Ratio 9.2 RATIO (10-20); Calcium,Total 9.2 mg/dL (8.5-10.1); Chloride 100 mmol/L (98-107); Creatinine, Serum 0.76 mg/dL (0.55-1.02); EST Glomerular Filtration Rate 82 mL/min (>60); Est Glom Filt Rate - Afr Amer 99 mL/min (>60); Glucose 121 mg/dL (74-106); Potassium 3.3 mmol/L (3.5-5.1); Sodium Level 137 mmol/L (136-145)
== END ==
PROVIDERS: PCP Internal Medicine; Visit Provider Nurse Practitioner Family
DX: E87.6 Hypokalemia (principal)
CPT/HCPCS: 36415; 80048; 85025

== ENCOUNTER → 2020-08-21 15:47 | Outpatient (CLI) | payer MEDICAID, SELFPAY ==
[2020-08-16 13:32] VITALS: BMI 35.9
[2020-08-21 17:44] LABS: Anion Gap 7 (5-15); BUN 7 mg/dL (7-18); BUN/Creat Ratio 7.9 RATIO (10-20); Calcium,Total 9.6 mg/dL (8.5-10.1); Chloride 101 mmol/L (98-107); Creatinine, Serum 0.89 mg/dL (0.55-1.02); EST Glomerular Filtration Rate 69 mL/min (>60); Est Glom Filt Rate - Afr Amer 83 mL/min (>60); Glucose 91 mg/dL (74-106); Potassium 3.5 mmol/L (3.5-5.1); Sodium Level 138 mmol/L (136-145)
== END ==
PROVIDERS: PCP Internal Medicine; Referring Provider Nurse Practitioner Family; Visit Provider Nurse Practitioner Family
DX: E87.6 Hypokalemia (principal)
CPT/HCPCS: 36415; 80048

== ENCOUNTER → 2020-09-28 16:25 | Outpatient (CLI) | payer MEDICAID, SELFPAY ==
[2020-08-16 13:32] VITALS: BMI 35.9
[2020-09-28 17:51] LABS: Anion Gap 5 (5-15); BUN 13 mg/dL (7-18); BUN/Creat Ratio 14.6 RATIO (10-20); Calcium,Total 9.2 mg/dL (8.5-10.1); Chloride 103 mmol/L (98-107); Creatinine, Serum 0.89 mg/dL (0.55-1.02); EST Glomerular Filtration Rate 68 mL/min (>60); Est Glom Filt Rate - Afr Amer 83 mL/min (>60); Glucose 86 mg/dL (74-106); Potassium 3.5 mmol/L (3.5-5.1); Sodium Level 138 mmol/L (136-145)
== END ==
PROVIDERS: PCP Internal Medicine; Referring Provider Internal Medicine; Visit Provider Internal Medicine
DX: I10 Essential (primary) hypertension (principal)
CPT/HCPCS: 36415; 80048

== ENCOUNTER → 2020-10-06 | Outpatient (CLI) | payer MEDICAID, SELFPAY ==
[2020-10-06 14:04] VITALS: BMI 35.3
[2020-10-06 15:28] LABS: Mucous, Urine 0 SEEN /hpf (<or=2+); Red Blood Cells-Urine 0 SEEN /hpf (0-5)
[2020-10-06 17:00] LABS: Color, Urine Yellow (Yellow); Glucose, Dipstick Normal (Normal); Ketone-Dipstick Negative (Negative); Leukocyte Esterase-Dipstick 500 /ul (Negative); Nitrite-Dipstick Positive (Negative); Occult Blood-Urine 10 /ul (Negative); Protein-Dipstick Negative (Negative); Specific Gravity, Urine 1.005 (1.002-1.030); Urine Bilirubin Dipstick Negative (Negative); Urine Clarity Sl. Cloudy (Clear); Urine Urobilinogen Normal (Normal)
[2020-10-06 17:26] LABS: Bacteria 1+ /hpf (None Seen); Squamous Epithelial Cells - UA 5-10 SEEN /hpf (5-10); White Blood Cells 10-25 SEEN /hpf (0-5)
== END | disposition home or self-care (01) ==
LOC: LABSPEC 15:27
PROVIDERS: PCP Internal Medicine; Referring Provider Internal Medicine; Visit Provider Internal Medicine
DX: R30.0 Dysuria (principal)
CPT/HCPCS: 81001; 87077; 87086; 87088; 87186

== ENCOUNTER → 2020-10-09 | Outpatient (CLI) | payer MEDICAID, SELFPAY ==
[2020-10-06 14:04] VITALS: BMI 35.3
== END | disposition home or self-care (01) ==
LOC: LABSPEC 17:40
PROVIDERS: PCP Internal Medicine; Referring Provider Internal Medicine; Visit Provider Internal Medicine
DX: J02.9 Acute pharyngitis, unspecified (principal); R09.81 Nasal congestion; Z20.828 Contact with and (suspected) exposure to other viral communicable diseases
CPT/HCPCS: 87635; C9803; U0003

== ENCOUNTER 2020-10-23 11:30 | Outpatient (RCR) | payer MEDICAID, SELFPAY ==
[2020-06-14 14:35] VITALS: BMI 35.3
[2020-07-11 16:40] VITALS: BMI 35.9
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
--- NOTE | 2020-09-22 15:51 | HP.PTREVAL ---
Dr. Rob Colbert, DO, It has been my pleasure to treat NATALIA MARQUEZ over the last 12 visits for S/P RIGHT TKR - DOS 07/11/20. Please see the progress note below for an update on the physical therapy plan of care! Subjective: PATIENT REPORTS MISSING SOME THERAPY FILIBERTO'TS DUE TO HER AND HER GRANDSON GETTING SICK. REPORTS HER KNEE IS DOING REALLY GOOD. Objective/Function: PATIENT WAS SEEN TODAY FOR RIGHT KNEE STRETCHING/ROM AND RE-ASSESSMENT OF PROGRESS TOWARD THE SET PT GOALS AND THE NEED FOR FURTHER PHYSICAL THERAPY VS READINESS FOR DISCHARGE. PATIENT IS MAKING GREAT PROGRESS TOWARD ALL GOALS AND WOULD BENEFIT FROM A FEW SESSIONS OF THE AQUATIC THERAPY ORDERED TO TEACH PATIENT APPROPRIATE EX'S TO CONTINUE INDEP'LY. PATIENT IS AGREEABLE. UPON EXAM TODAY: THIS PATIENT AMBULATES INDEP'LY INTO PT WITH A MILD LIMP ON THE RIGHT LE BUT NO ASSISTIVE DEVICES AND NO LOB. JOELLE LE STRENGTH IS GROSSLY 5/5 WITH MMT EXCEPT LEFT ANKLE/FOOT AND RIGHT KNEE. RIGHT KNEE ROM = FULL EXT TO 116 DEG FLEXION AFTER STRETCHING. SHE IS INEP WITH A HEP. Plan Plan: AQUATIC THERAPY 2X'S A WK X 2 WEEKS TO HELP PATIENT PROGRESS TO INDEP POOL PROGRAM. PATIENT IS AGREEABLE. Goals Goal 1:: PATIENT WILL BE INDEP AND SAFE WITH GAIT ON ALL SURFACES WITH LEAST ASSISTIVE DEVICE Goal Time Frame: 4-6 Weeks Goal Progress: Progressing Goal 2:: INCREASE FUNCTIONAL ROM OF RIGHT LE Goal Time Frame: 4-6 Weeks Goal Progress: Progressing Goal 3:: INCREASE FUNCTIONAL STRENGTH OF RIGHT LE Goal Time Frame: 4-6 Weeks Goal Progress: Progressing Goal 4:: PATIENT WILL BE INDEP WITH A HEP ONCE FORMAL PHYSICAL THERAPY CONLCULES Goal Time Frame: 4-6 Weeks Goal Progress: Progressing Anticipated Interventions Patient/Client Instruction: Educate patient on: Condition, Plan of Care, Risk Factors, Benefits of Fitness Program For the Purpose of:: To improve self management Therapeutic Exercise to Include: Strength training, Endurance training, Balance training, Flexibilty training, Gait and locomotor training, Neuromotor development, Active ROM For the Purpose of:: To decrease pain, To increase ROM, To improve muscle performance and motor function, To increase tolerance to activity/condition/position, To improve ability of physical actions for home/community/work/leisure, To improve gait and locomotor functions Cryotherapy (ice pack, ice massage): Yes Thermo therapy (hot pack): Yes For the Purpose of:: To decrease pain, To decrease swelling/inflammation, To improve nutrient delivery to tissue Please do not hesitate to contact me at [phone] by phone or if you have questions or concerns regarding this new plan of care! Sincerely, Gisele Acharya, PT, Cert MDT
--- NOTE | 2020-10-23 18:46 | HP.PTDCSUM ---
It has been my pleasure to treat NATALIA MARQUEZ referred by Dr. Rob Colbert DO, with the diagnosis of S/P RIGHT TKR - DOS 07/11/20 for a total of 19 visit(s). Discharge Date: Please see the following information for a summary of their discharge status. Subjective: PATIENT REPORTS SHE STILL HAS A FEW PROBLEMS. SHE REPORTS THAT WHEN SHE DOES A HARDER CHALLENGE IN THE POOL HER LOW BACK HURTS AND SHE COMPENSATES BY DOING THE EX'S THE WRONG WAY. Right knee Pain Intensity (Out of 10): 1 R BUTTOCK/THIGH Pain Intensity (Out of 10): 5 Lumbar Spine Pain Intensity (Out of 10): 5 LLE Pain Intensity (Out of 10): 1 % Improvement: 75 Objective/Function: THIS PATIENT WAS SEEN TODAY FOR ASSESSMENT OF PROGRESS TOWARD THE SET PT GOALS AND READINESS FOR DISCHARGE VS NEED FOR FURTHER SKILLED PT. UPON EXAM TODAY PATIENT HAS MADE GOOD PROGRESS TOWARD ALL PT GOALS BUT HER BACK PAIN IS A LIMITING FACTOR IN HER REHAB. SHE IS APPROPRIATE TO TRY TO TRANSITION TO INDEP POOL PROGRAM AT THIS TIME BASED ON HER LE ROM AND STRENGTH NOT CONTINUING TO IMPROVE COMPARED TO LAST RE-CHECK WITH EXAM TODAY AND BACK LIMITED FURTHER PROGRESSION. PATIENT WITH LEFT KNEE FLEXION TO 115 DEG TODAY. THIS PT ENCOURAGED PATIENT TO CONTINUE POOL EX'S AND SHE IS AGREEABLE. Goal 1:: PATIENT WILL BE INDEP AND SAFE WITH GAIT ON ALL SURFACES WITH LEAST ASSISTIVE DEVICE Goal Progress: Goal Met Goal 2:: INCREASE FUNCTIONAL ROM OF RIGHT LE Goal Progress: Goal Met Goal 3:: INCREASE FUNCTIONAL STRENGTH OF RIGHT LE Goal Progress: Goal Met Goal 4:: PATIENT WILL BE INDEP WITH A HEP ONCE FORMAL PHYSICAL THERAPY CONLCULES Goal Progress: Goal Met Plan: TRIAL OF D/C TO INDEP POOL PROGRAM AT THIS TIME BUT WE WOULD BE HAPPY TO RESUME PT IN THE FUTURE NEEDED/APPROPRIATE. If there are questions or concerns regarding this patient's physical therapy, please feel free to call me at [phone]. Thank you for the referral of this patient. Sincerely, Gisele Acharya, PT, Cert MDT
== END 2020-10-23 19:00 | disposition home or self-care (01) ==
LOC: PT 11:30
PROVIDERS: PCP Internal Medicine; Referring Provider Orthopaedic Surgery; Visit Provider Orthopaedic Surgery
DX: Z47.1 Aftercare following joint replacement surgery (principal); Z96.651 Presence of right artificial knee joint
CPT/HCPCS: 97110; 97113; 97162; 97164; 97530

== ENCOUNTER → 2020-12-11 14:05 | Outpatient (CLI) | payer MEDICAID, SELFPAY ==
[2020-12-11 13:08] VITALS: BMI 35.3
[2020-12-11 14:07] LABS: Mucous, Urine 0 SEEN /hpf (<or=2+); Red Blood Cells-Urine 0 SEEN /hpf (0-5)
[2020-12-11 15:45] LABS: Color, Urine Yellow (Yellow); Glucose, Dipstick Normal (Normal); Ketone-Dipstick 5 mg/dl (Negative); Leukocyte Esterase-Dipstick 500 /ul (Negative); Nitrite-Dipstick Positive (Negative); Occult Blood-Urine 10 /ul (Negative); Protein-Dipstick 30 mg/dl (Negative); Urine Bilirubin Dipstick Negative (Negative); Urine Clarity Sl. Cloudy (Clear); Urine Urobilinogen 1 mg/dl (Normal)
[2020-12-11 15:56] LABS: Bacteria 2+ /hpf (None Seen); Squamous Epithelial Cells - UA 5-10 SEEN /hpf (5-10); White Blood Cells 50-100 SEEN /hpf (0-5)
[2020-12-11 15:57] LABS: Yeast-Urine RARE /hpf (None Seen)
== END ==
PROVIDERS: PCP Internal Medicine; Referring Provider Internal Medicine; Visit Provider Internal Medicine
DX: R30.0 Dysuria (principal)
CPT/HCPCS: 81001; 87086; 87088; 87186

== ENCOUNTER → 2021-01-24 13:26 | Outpatient (CLI) | payer MEDICAID, SELFPAY ==
[2021-01-24 13:02] VITALS: BMI 36.3
[2021-01-24 15:09] LABS: Absolute Lymphocyte Count 2.65 X10^3/uL (0.83-4.51); Basophil# 0.08 X10^3/uL; Basophil% 1.1 % (0-1); Eosinophil# 0.17 X10^3/uL; Eosinophils% 2.2 % (0-5); Hematocrit 42.7 % (37-47); Hemoglobin 13.8 g/dL (12.0-15.0); Lymphocyte # 2.65 X10^3/ul (4.0); Lymphocyte % 35.1 % (19-41); Mean Corp Hgb Conc 32.3 g/dL (32-36); Mean Corpuscular Hgb 29.9 pg (27.0-32.0); Mean Corpuscular Volume 92.6 fL (81-99); Mean Platelet Vol. 10.2 fl (6.2-12.0); Monocyte# 0.65 X10^3/uL; Monocyte% 8.6 % (0-10); NRBC Flagged by Analyzer 0 % (0-5); Neutrophil # 3.98 X10^3/uL (2.7-7.7); Neutrophil % 52.6 % (47-70); Platelet Count 281 K/mm3 (150-450); RBC Distribution Width CV 13.3 % (11.6-14.6); RBC Distribution Width SD 45.3 fl (35.1-43.9); Red Blood Count 4.61 M/mm3 (4.2-5.4); White Blood Count 7.6 K/mm3 (4.4-11.0)
[2021-01-24 15:20] LABS: ALB/GLOB Ratio 0.9 RATIO (0.9-2.4); AST(SGOT) 23 U/L (15-37); Alanine Aminotransfer ALT/SGPT 32 U/L (13-56); Albumin, Serum 3.5 g/dL (3.2-5.0); Alkaline Phosphatase 109 U/L (45-117); Anion Gap 7 (5-15); BUN 17 mg/dL (7-18); Calcium,Total 8.8 mg/dL (8.5-10.1); Chloride 108 mmol/L (98-107); Cholesterol 117 mg/dL (200); Creatinine, Serum 0.85 mg/dL (0.55-1.02); EST Glomerular Filtration Rate 72 mL/min (>60); Est Glom Filt Rate - Afr Amer 87 mL/min (>60); Globulin 3.9 g/dL (2.2-4.2); Glucose 115 mg/dL (74-106); High Density Lipoprotein 32 mg/dL; Potassium 3.9 mmol/L (3.5-5.1); Protein, Total 7.4 g/dL (6.4-8.2); Sodium Level 138 mmol/L (136-145); Triglycerides 226 mg/dL; Very Low Density Lipoprotein 45 mg/dL (5-40)
[2021-01-25 09:43] LABS: Hemoglobin A1c 5.6 % (3.8-5.6)
== END ==
PROVIDERS: PCP Internal Medicine; Referring Provider Internal Medicine; Visit Provider Internal Medicine
DX: R73.9 Hyperglycemia, unspecified (principal); E78.5 Hyperlipidemia, unspecified; I10 Essential (primary) hypertension
CPT/HCPCS: 36415; 80053; 80061; 83036; 85025

== ENCOUNTER → 2021-04-13 14:48 | Outpatient (CLI) | payer MEDICAID, SELFPAY ==
--- NOTE | 2021-04-13 14:52 | CT_ITS ---
STUDY: CT TEMPORAL BONES WITHOUT CONTRAST - ATTN: I.A.C. S REASON FOR EXAM: Female, 60 years old. L OTORRHEA RADIATION DOSAGE (If Supplied By Facility): CTDIvol = ( 71.96 ) mGy, DLP = ( 611.32 ) mGycm TECHNIQUE: The patient was scanned in a multi detector CT scanner. Transaxial imaging was performed without the administration of intravenous contrast material. Sagittal and coronal images were reconstructed. Individualized dose optimization techniques were used for this CT. COMPARISON: None. FINDINGS: RIGHT TEMPORAL BONE Normal right internal auditory canal. Normal visualized ossicles and tympanic cavity. Normal right cochlea and semicircular canals. Normal vestibular aqueduct. Normal right petrous carotid artery. Normal right jugular fossa. Normal right mastoid air cells. Normal right petrous apex. LEFT TEMPORAL BONE Normal left internal auditory canal. Normal visualized ossicles and tympanic cavity. Normal left cochlea and semicircular canals. Normal vestibular aqueduct. Normal left petrous carotid artery. Normal right jugular fossa. Partial opacification of the left mastoid air cells and sclerosis. Normal left petrous apex. CT/Orb Sella Post Fossa Ear w/o IMPRESSION: Partial opacification of the left mastoid air cells with sclerosis. Electronically Signed: Jorge Doherty MD at 15:21 EDT , Service support ,
== END ==
PROVIDERS: PCP Internal Medicine; Referring Provider Otolaryngology; Visit Provider Otolaryngology
DX: H92.12 Otorrhea, left ear (principal); H72.02 Central perforation of tympanic membrane, left ear
CPT/HCPCS: 70480

== ENCOUNTER → 2021-05-18 12:58 | Outpatient (CLI) | payer MEDICAID, SELFPAY ==
[2021-01-24 13:02] VITALS: BMI 36.3
[2021-05-09 09:11] VITALS: BMI 36.3
--- NOTE | 2021-05-18 13:00 | EKG12_ITS ---
Test Reason : HTN Blood Pressure : / mmHG Vent. Rate : 076 BPM Atrial Rate : 076 BPM P-R Int : 162 ms QRS Dur : 082 ms QT Int : 380 ms P-R-T Axes : 055 015 053 degrees QTc Int : 427 ms Normal sinus rhythm Normal ECG Confirmed by ROYER MURRELL, JOSE ([id number]), legal editor CHELLY MCDANIEL ([id number]) on 05/21/2021 10:57:04 A M Referred By: Ryan Leyva Confirmed By:TAYA LINTON MD
--- NOTE | 2021-05-18 13:16 | BI_ITS ---
MAMMOGRAPHY - BILATERAL SCREENING REASON FOR EXAM: Female, 60 years old. Routine annual screening examination. PERTINENT HISTORY: Grandmother with breast cancer. TECHNIQUE: Digital bilateral breast liberty (3D mammographic acquisition) in the CC and MLO projections. 2-D mediolateral oblique (MLO) and craniocaudad (CC) views of both breasts were obtained. CAD: Full Field Digital Mammography with Computer Added Detection was performed. COMPARISON: Comparison is made with prior study dated 12/10/2018 and 02/18/2012. FINDINGS: Breast Composition: There are scattered areas of fibroglandular density. There are no dominant masses or suspicious calcifications. Stable small benign-appearing bilateral axillary No other significant abnormalities are identified. There has been no significant change since the prior study. BI/SCRN MAMM (CAD)W/LIBERTY BILAT IMPRESSION: Stable bilateral screening mammogram. Yearly follow-up mammogram recommended. (A) ASSESSMENT CATEGORY: BIRADS Category 2: Benign. A letter regarding these results will be sent to the patient by the facility within 30 days. Approximately 10% of breast cancers are not detected by mammography. A normal mammogram should not delay biopsy of a clinically suspicious abnormality. [id number] Electronically Signed: Jorge Doherty MD at 14:09 EDT , Service support ,
== END ==
PROVIDERS: PCP Internal Medicine; Referring Provider Internal Medicine; Visit Provider Internal Medicine
DX: Z12.31 Encounter for screening mammogram for malignant neoplasm of breast (principal); I10 Essential (primary) hypertension
CPT/HCPCS: 77063; 77067; 93005

== ENCOUNTER → 2021-06-26 09:48 | Outpatient (CLI) | payer MEDICAID, SELFPAY ==
[2021-06-26 09:17] VITALS: BMI 36.3
[2021-06-26 13:16] LABS: Anion Gap 9 (5-15); BUN 17 mg/dL (7-18); BUN/Creat Ratio 20.1 RATIO (10-20); Calcium,Total 9.3 mg/dL (8.5-10.1); Chloride 103 mmol/L (98-107); Creatinine, Serum 0.84 mg/dL (0.55-1.02); EST Glomerular Filtration Rate 73 mL/min (>60); Est Glom Filt Rate - Afr Amer 88 mL/min (>60); Glucose 94 mg/dL (74-106); Potassium 3.5 mmol/L (3.5-5.1); Sodium Level 137 mmol/L (136-145)
== END ==
PROVIDERS: PCP Internal Medicine; Referring Provider Internal Medicine; Visit Provider Internal Medicine
DX: I10 Essential (primary) hypertension (principal)
CPT/HCPCS: 36415; 80048

== ENCOUNTER → 2021-08-13 10:48 | Outpatient (CLI) | payer MEDICAID, SELFPAY ==
[2021-08-13 12:03] LABS: Color, Urine Yellow (Yellow); Glucose, Dipstick Normal (Normal); Ketone-Dipstick Negative (Negative); Leukocyte Esterase-Dipstick 500 /ul (Negative); Nitrite-Dipstick Positive (Negative); Occult Blood-Urine 10 /ul (Negative); Protein-Dipstick Negative (Negative); Specific Gravity, Urine 1.015 (1.002-1.030); Urine Bilirubin Dipstick Negative (Negative); Urine Clarity Sl. Cloudy (Clear); Urine Urobilinogen Normal (Normal)
[2021-08-13 12:19] LABS: White Blood Cells 10-25 SEEN /hpf (0-5)
[2021-08-13 12:20] LABS: Bacteria 4+ /hpf (None Seen); Mucous, Urine 1+ /hpf (<or=2+); Red Blood Cells-Urine 0-5 SEEN /hpf (0-5); Squamous Epithelial Cells - UA 0-5 SEEN /hpf (5-10)
== END ==
PROVIDERS: PCP Internal Medicine; Visit Provider Physician Assistant
DX: M54.9 Dorsalgia, unspecified (principal)
CPT/HCPCS: 81001; 87077; 87086; 87088; 87186

== ENCOUNTER 2021-08-14 00:08 | Emergency (ER) | payer MEDICAID, SELFPAY ==
[2021-08-14 00:08] VITALS: BP 113/79; PULSE 67; RESP 16; TEMP 36.7; O2SAT 97; BMI 36.8
[2021-08-14 00:27] LABS: Absolute Lymphocyte Count 3.31 X10^3/uL (0.83-4.51); Absolute Neutrophil Count 6.3 X10^3/uL (2.0-7.7); Basophil% 0.9 % (0-1); Eosinophil# 0.24 X10^3/uL; Eosinophils% 2.2 % (0-5); Hemoglobin 13.9 g/dL (12.0-15.0); Lymphocyte # 3.31 X10^3/ul (0.83-4.51); Lymphocyte % 30.4 % (19-41); Mean Corp Hgb Conc 33.1 g/dL (32-36); Mean Corpuscular Hgb 30.4 pg (27.0-32.0); Mean Corpuscular Volume 91.9 fL (81-99); Mean Platelet Vol. 9.4 fl (6.2-12.0); Monocyte# 0.87 X10^3/uL; NRBC Flagged by Analyzer 0 % (0-5); Neutrophil # 6.32 X10^3/uL (2.7-7.7); Neutrophil % 58.1 % (47-70); Platelet Count 222 K/mm3 (150-450); RBC Distribution Width CV 12.1 % (11.6-14.6); RBC Distribution Width SD 40.6 fl (35.1-43.9); Red Blood Count 4.57 M/mm3 (4.2-5.4); White Blood Count 10.9 K/mm3 (4.4-11.0)
--- NOTE | 2021-08-14 00:32 | EDS_ITS ---
HPI History of Present Illness Chief Complaint: Flank Pain Informant: patient Onset/Context/Timing Onset: Days (Onset of pain 10 days ago) Context: Sudden Onset Timing: Continuous Quality: Pain Location: Right lower back radiating anteriorly Current Severity: Moderate Maximum Severity: Severe Worsened by: Nothing Relieved by: Nothing Associated Symptoms Associated Symptoms: None Narrative Narrative: Patient is a 61-year-old woman with history of recurrent urinary tract infection who has seen her primary care doctor and prescribed Macrobid for presumed urinary tract infection. UA reveals leukoesterase and pyuria. No bacteria is noted. There is no blood. She contacted her urologist who recommended she come to the emergency department. She denies fever, chills night sweats. She denies HEENT, cardiac, respiratory or GI symptoms. She denies vaginal bleeding. There is no history of trauma. Prior similar symptoms: Yes Recent Illness/Hospitalization: Yes (Diagnosed with urinary tract infection this morning) [facility] Medical History Anxiety Arthritis Back pain Cervical radiculopathy Depression Diabetes Diarrhea Difficulty balancing Educated about COVID-19 virus infection Epigastric pain Fatigue Fibromyalgia GERD (gastroesophageal reflux disease) History of ear infection History of gout History of MRSA infection History of skin cancer History of suicide attempt Hyperlipidemia Hypertension Knee pain Nonrheumatic mitral valve prolapse Obesity (BMI 30-39.9) Potassium (K) deficiency Rheumatoid arthritis Routine health maintenance Home Medications aspirin 81 mg chewable tablet 81 mg PO DAILY 09/16/18 [History Last Taken Unknown] tizanidine 2 mg capsule 2 mg PO TID PRN #30 cap 07/19/20 [Rx Last Taken Unknown] simvastatin 40 mg tablet 40 mg PO QPM #90 tab 11/14/20 [Rx Last Taken Unknown] venlafaxine 150 mg capsule,extended release 24 hr 150 mg PO DAILY #90 cap 04/17/21 [Rx Last Taken Unknown] metoprolol tartrate 50 mg tablet See Rx Instructions .ROUTE .COMPLEX #120 tab 05/09/21 [Rx Last Taken Unknown] amitriptyline 25 mg tablet 25 mg PO DAILY tab 06/11/21 [History Last Taken Unknown] meloxicam 15 mg tablet 15 mg PO DAILY tab 06/11/21 [History Last Taken Unknown] oxybutynin chloride 15 mg tablet,extended release 24 hr 15 mg PO DAILY tab 06/11/21 [History Last Taken Unknown] clindamycin HCl 300 mg capsule 600 mg PO ONCE 1 Days #2 cap 06/22/21 [Rx Last Taken Unknown] methylprednisolone 4 mg tablets in a dose pack See Rx Instructions PO PER PKG DIR #21 tab 06/22/21 [Rx Last Taken Unknown] hydrochlorothiazide 25 mg tablet 25 mg PO QAM #90 tab 07/09/21 [Rx Last Taken Unknown] pantoprazole 40 mg tablet,delayed release 40 mg PO BID #60 tab 07/09/21 [Rx Last Taken Unknown] potassium chloride 20 mEq tablet,extended release 40 meq PO BID 90 Days #360 tab 07/11/21 [Rx Last Taken Unknown] zolpidem 10 mg tablet 5 - 10 mg PO QHS PRN #30 tab 07/17/21 [Rx Last Taken Unknown] naproxen 250 mg tablet 250 mg PO BID PRN #30 tab 08/13/21 [Rx Last Taken Unknown] nitrofurantoin macrocrystal 100 mg capsule 100 mg PO BID #14 cap 08/13/21 [Rx Last Taken Unknown] Allergy/AdvReac Type Severity Reaction Status Date / Time paroxetine [From Paxil] Allergy suicidal Verified 08/14/21 00:11 thoughts bupropion [From Wellbutrin] AdvReac Severe suicidal Verified 08/14/21 00:11 thoughts oxycodone HCl [From Percocet] AdvReac Itching Verified 08/14/21 00:11 Penicillins AdvReac YEAST Verified 08/14/21 00:11 INFECTION Family History Grandfather CAD (coronary artery disease) Heart disease Myocardial infarction Hypertension Hyperlipemia Anxiety and depression Melanoma Diabetes Grandmother Diabetes Arthritis Glaucoma Breast cancer Father Alcoholism Sister Heart disease Surgical History H/O repair of right rotator cuff (~08/2017) History of appendectomy History of hysterectomy History of left heart catheterization (~10/04/11) History of right knee joint replacement Hx of cholecystectomy left ankle surgery Status post cataract extraction and insertion of intraocular lens Social History (Updated 08/14/21 @ 00:[address] Paul Miller MD) household members: none Smoking Status: Never smoker alcohol intake: current alcohol intake frequency: holidays/special occasions only substance use type: does not use what type of physical activity do you participate in: none ROS ROS ED Constitutional Constitutional ED: Denies chills, fever(s), subjective or sweats Eyes Eyes: Denies blurry vision or change in vision ENT ENT ED: Denies ear pain, rhinorrhea or sore throat Cardiovascular Cardiovascular: Denies chest pain, palpitations or racing heartbeat Respiratory/Chest Respiratory/Chest: Denies cough, dyspnea or dyspnea on exertion Gastrointestinal Gastrointestinal: Denies abdominal pain, constipation, diarrhea, melena, nausea or vomiting Genitourinary Genitourinary ED: Denies dysuria, hematuria or urinary frequency Musculoskeletal Musculoskeletal: Reports back pain; Denies arthralgias, myalgias or neck pain Integumentary Denies rash Neurologic Neurologic: Denies paresthesias or weakness Endocrine Endocrinology: Denies polydipsia, polyphagia or polyuria EXAM Physical Exam Const Vital Signs: 08/14/21 00:08 Temperature 98.1 F Temperature Source Oral Pulse Rate 67 Respiratory Rate 16 Blood Pressure 113/79 Blood Pressure Mean 90 Pulse Ox 97 Oxygen Delivery Method Room Air Positive well nourished, well developed and obese General Appearance ED: well developed Nutritional Appearance: obese HEENT Reports TM's clear and dry mucous membranes HEENT Narrative: Head is atraumatic normocephalic. Ears normal. Nares patent. Tympanic Membrane ED: Yes TM's clear Mouth ED: Yes dry mucous membranes Mouth: dry mucous membranes Eyes PERRL and EOMs intact bilaterally General Eye ED: Negative for pale conjunctiva or scleral icterus Neck no lymphadenopathy, supple and no JVD Chest Wall inspection of chest normal Resp normal respiratory effort and clear to auscultation bilaterally Cardio regular rate, regular rhythm, S1 normal heart sound, S2 normal heart sound and no murmurs GI normal to inspection, nondistended, normoactive bowel sounds, non-tender and non-distended Palpation: soft Back/Spine no CVA tenderness Cervical Spine: Negative for cervical spine tenderness Thoracic Spine / Upper Back: Negative for thoracic spinal tenderness or paraspinal muscle tenderness Lumbar Spine / Lower Back: Negative for lumbar spinal tenderness Extremity normal to inspection General Extremety ED: Negative for edema or tenderness General Extremity: Negative for edema Neuro oriented x3, CN's II-XII intact bilaterally and no sensory deficits noted Sensorium / Orientation: alert Motor Exam: strength 5/5 throughout Psych mental status grossly normal Skin no rashes or lesions noted and no wounds MDM MDM MDM Narrative Medical decision making narrative: With right lower back pain rating anteriorly this may represent a obstructing ureteral distal stone. Urine does reveal pyuria without bacteriuria. Patient was medicated with Zofran for her nausea. She has numerous allergies to opiates. Will discuss what they are to determine if morphine is safe and appropriate. CBC was obtained to assess white count and H&H. Basic metabolic panel was obtained to assess renal function. CT of the abdomen and pelvis without contrast was obtained to assess for obstructing ureteral stone. Lab Data Attestation: I reviewed the patient's lab results. Lab results narrative: Patient was informed of her laboratory results and CAT scan results. Plan is to discharge to home. She was instructed to continue taking her antibiotics. Labs: Laboratory Results - last 24 hr 08/14/21 08/14/21 00:20 00:20 WBC 10.9 RBC 4.57 Hgb 13.9 Hct 42.0 MCV 91.9 MCH 30.4 MCHC 33.1 RDW Std Deviation 40.6 RDW Coeff of Vijaya 12.1 Plt Count 222 MPV 9.4 Immature Gran % (Auto) 0.400 Neut % (Auto) 58.1 Lymph % (Auto) 30.4 [place] % (Auto) 8.0 Eos % (Auto) 2.2 Baso % (Auto) 0.9 Absolute Neuts (auto) 6.3 Absolute Lymphs (auto) 3.31 Nucleated RBC % 0 Sodium 138 Potassium 3.7 Chloride 105 Carbon Dioxide 26.0 Anion Gap 7 BUN 14 Creatinine 0.92 Estim Creat Clear Calc 59.35 Est GFR (MDRD) Af Amer 80 Est GFR (MDRD) Non-Af 66 BUN/Creatinine Ratio 15.2 Glucose 121 H Calcium 8.5 Radiography Diagnostic Testing: Radiology Impression Abdomen/Pelvis CT 08/14/21 01:17 IMPRESSION: 1. No acute intra-abdominal abnormality 2. Indeterminant noncalcified nodules within the right middle and left lower lobes measuring less than 6 mm. 3. T11 compression fracture deformity of indeterminate age Electronically Signed: Dashawn Lozoya MD at 2:20 EDT Tel , Service support , Discharge Plan Triage Chief Complaint: Flank Pain ED Provider: Paul Miller Dx/Rx/DC Orders Clinical Impression: Urinary tract infection, Acute right-sided low back pain Instructions: ED Back and Neck Pain, General, ED CYSTITIS Female Adult Prescriptions: No Action aspirin 81 mg tablet,chewable 81 mg PO DAILY RF: 0 tizanidine 2 mg capsule 2 mg PO TID PRN (Reason: muscle spasticity) Qty: 30 RF: 0 metoprolol tartrate 50 mg tablet See Rx Instructions .ROUTE .COMPLEX Qty: 120 RF: 2 amitriptyline 25 mg tablet 25 mg PO DAILY RF: 0 oxybutynin chloride 15 mg tablet extended release 24hr 15 mg PO DAILY RF: 0 meloxicam 15 mg tablet 15 mg PO DAILY RF: 0 Hold Instructions: Order Changed naproxen 250 mg tablet 250 mg PO BID PRN (Reason: pain) Qty: 30 RF: 0 simvastatin 40 mg tablet 40 mg PO QPM Qty: 90 RF: 3 venlafaxine 150 mg capsule,extended release 24hr 150 mg PO DAILY Qty: 90 RF: 1 methylprednisolone [Medrol (Compa)] 4 mg tablets,dose pack See Rx Instructions PO PER PKG DIR Qty: 21 RF: 0 clindamycin HCl 300 mg capsule 600 mg PO ONCE 1 Days Qty: 2 RF: 1 hydrochlorothiazide 25 mg tablet 25 mg PO QAM Qty: 90 RF: 3 pantoprazole 40 mg tablet,delayed release (DR/EC) 40 mg PO BID Qty: 60 RF: 0 potassium chloride 20 mEq tablet extended release 40 meq PO BID 90 Days Qty: 360 RF: 3 zolpidem 10 mg tablet 5 - 10 mg PO QHS PRN (Reason: Sleep) Qty: 30 RF: 0 nitrofurantoin macrocrystal 100 mg capsule 100 mg PO BID Qty: 14 RF: 0 Primary Care Provider: Ryan Leyva Referrals: Ryan Leyva MD [Primary Care Provider] - 3-5 Days if not improving Disposition Disposition: Home, Self Care
[2021-08-14] MEDS: Ondansetron 4 MG/2 ML Vial IV (00:36)
[2021-08-14 00:39] LABS: Anion Gap 7 (5-15); BUN 14 mg/dL (7-18); BUN/Creat Ratio 15.2 RATIO (10-20); Calcium,Total 8.5 mg/dL (8.5-10.1); Chloride 105 mmol/L (98-107); Creatinine, Serum 0.92 mg/dL (0.55-1.02); EST Glomerular Filtration Rate 66 mL/min (>60); Est Glom Filt Rate - Afr Amer 80 mL/min (>60); Estimated Creatinine Clearance 59.35 ml/min; Glucose 121 mg/dL (74-106); Potassium 3.7 mmol/L (3.5-5.1); Sodium Level 138 mmol/L (136-145)
[2021-08-14] MEDS: 0.9% Normal Saline 1,000 ML 250 ML IV (01:09)
--- NOTE | 2021-08-14 01:17 | CT_ITS ---
STUDY: CT ABDOMEN AND PELVIS WITHOUT CONTRAST REASON FOR EXAM: Female, 61 years old. Flank pain RADIATION DOSAGE (If Supplied By Facility): CTDIvol = ( 22.93 ) mGy, DLP = ( 1254.57 ) mGycm TECHNIQUE: Transaxial images were obtained from the dome of the diaphragm to the symphysis pubis without oral contrast, and without intravenous contrast. Sagittal and coronal images were reconstructed. Individualized dose optimization techniques were used for this CT. COMPARISON: None. FINDINGS: Mild dependent atelectasis bilateral lung bases. 6 mm pleural-based nodule the posterior medial left lung base. 5 mm subpleural nodule within the medial segment right middle lobe. The visualized portions of the heart are within normal limits. Normal liver. Gallbladder is absent. Normal biliary ducts. Normal spleen. Normal pancreas. Normal bilateral adrenal glands. Normal right kidney. Normal left kidney. Normal visualized stomach. Normal small intestine. Normal colon. The appendix is visualized and appears normal. Normal abdominal aorta. Normal inferior vena cava. Normal retroperitoneum. Normal urinary bladder. Uterus is surgically absent. Normal abdominal wall. Mild multilevel degenerative change of the spine. Compression fracture deformity at the T11 vertebral body which is new from prior imaging but of uncertain acuity. CT/Abdomen/Pelvis without Cont IMPRESSION: 1. No acute intra-abdominal abnormality 2. Indeterminant noncalcified nodules within the right middle and left lower lobes measuring less than 6 mm. 3. T11 compression fracture deformity of indeterminate age Electronically Signed: Dashawn Lozoya MD at 2:20 EDT Tel , Service support ,
[2021-08-14 03:18] VITALS: BP 110/62; PULSE 79; RESP 18; O2SAT 97
== END 2021-08-14 03:19 | disposition home or self-care (01) ==
PROVIDERS: Emergency Provider Emergency Medicine; PCP Internal Medicine
DX: N39.0 Urinary tract infection, site not specified (principal); I10 Essential (primary) hypertension; I34.1 Nonrheumatic mitral (valve) prolapse; E11.9 Type 2 diabetes mellitus without complications; E66.9 Obesity, unspecified; Z68.30 Body mass index [BMI] 30.0-30.9, adult; E87.6 Hypokalemia; E78.5 Hyperlipidemia, unspecified; F32.9 Major depressive disorder, single episode, unspecified; F41.9 Anxiety disorder, unspecified; K21.9 Gastro-esophageal reflux disease without esophagitis; M06.9 Rheumatoid arthritis, unspecified; Z91.5 Personal history of self-harm; Z86.14 Personal history of Methicillin resistant Staphylococcus aureus infection; Z87.440 Personal history of urinary (tract) infections; Z85.828 Personal history of other malignant neoplasm of skin; Z79.82 Long term (current) use of aspirin; Z79.899 Other long term (current) drug therapy
CPT/HCPCS: 74176; 80048; 85025; 96361; 96374; 99282; J7030; A4216; J2405

== ENCOUNTER → 2021-08-28 | Outpatient (CLI) | payer MEDICAID, SELFPAY ==
[2021-08-28 11:53] LABS: Mucous, Urine 0 SEEN /hpf (<or=2+); Red Blood Cells-Urine 0 SEEN /hpf (0-5)
[2021-08-28 15:35] LABS: Color, Urine Yellow (Yellow); Glucose, Dipstick Normal (Normal); Ketone-Dipstick 5 mg/dl (Negative); Leukocyte Esterase-Dipstick 500 /ul (Negative); Nitrite-Dipstick Positive (Negative); Occult Blood-Urine 10 /ul (Negative); Protein-Dipstick 30 mg/dl (Negative); Specific Gravity, Urine 1.025 (1.002-1.030); Urine Clarity Sl. Cloudy (Clear); Urine Urobilinogen 1 mg/dl (Normal)
[2021-08-28 15:38] LABS: Urine Bilirubin Dipstick 1 mg/dL (Negative)
[2021-08-28 15:46] LABS: Bacteria 3+ /hpf (None Seen); Squamous Epithelial Cells - UA 0-5 SEEN /hpf (5-10); White Blood Cells 0-5 SEEN /hpf (0-5)
== END | disposition home or self-care (01) ==
LOC: LABSPEC 11:52
PROVIDERS: PCP Internal Medicine; Referring Provider Internal Medicine; Visit Provider Internal Medicine
DX: N39.0 Urinary tract infection, site not specified (principal)
CPT/HCPCS: 81001

== ENCOUNTER → 2021-09-05 13:45 | Outpatient (CLI) | payer MEDICAID, SELFPAY ==
--- NOTE | 2021-09-05 13:46 | CT_ITS ---
STUDY: CT Chest W/O Contrast Injection 09/05/2021 6:42 PM REASON FOR EXAM: Female, 61 years old. Follow-up lung nodules Individualized dose optimization techniques were used for this CT. TECHNIQUE: Transaxial imaging was performed withoutIV contrast material. COMPARISON: CTAP 08/14/2021 FINDINGS: There are degenerative changes of the shoulders. There is no pneumothorax. There is no demonstrated pleural abnormality. There is a 7 mm right upper lobe nodule. SE:4 IM: 59. 3.5 mm right superior segment of the lower lobe nodule. SE:4 IM: 59 . 3.9 mm left lingular nodule. SE:4 IM: 59 . 2.5n mm left lower lobe nodule. SE:4 IM: 48. There are calcifications of the coronary arteries. Normal mediastinum. Normal hilar regions. Normal pulmonary arteries. There is atherosclerotic calcification of the aortic arch with tortuosity and elongation of the aortic arch and descending thoracic aorta. There are multi-level degenerative changes of the thoracic spine. There is a small hiatal hernia. CT/Chest without Contrast IMPRESSION: Multiple bilateral pulmonary nodules. ACR Lung CT Screening Reporting T Data System (Lung-RADS) score: 2 - Benign Appearance or Behavior. Recommend continued annual screening with low-dose CT (LDCT) in 12 months. Electronically Signed: Daquan Lester MD at 19:01 EDT , Service support ,
== END ==
PROVIDERS: PCP Internal Medicine; Referring Provider Internal Medicine; Visit Provider Internal Medicine
DX: R91.1 Solitary pulmonary nodule (principal)
CPT/HCPCS: 71250

== ENCOUNTER 2021-09-17 09:04 | Day surgery (SDC) | payer MEDICAID, SELFPAY ==
[2021-09-17] VITALS (7 sets, daily range): BP systolic 98–131; BP diastolic 61–87; PULSE 63–70; RESP 16; TEMP 36.4–36.6; O2SAT 92–94; BMI 35.9
[2021-09-17] MEDS: Lactated Ringers 1,000 ML 100 ML IV (09:40)
[2021-09-17 10:00] LABS: Bedside Glucose 106 mg/dL (70-110)
[2021-09-17] MEDS: Bupivacaine Mpf 0.5% 30 ML VIAL (10:20)
[2021-09-17] MEDS: Lidocaine 1% (30 ml sdv) 30 ML Vial (10:21)
[2021-09-17] MEDS: Cefazolin 2 GM in 0.9% Normal Saline 100 ML IV (10:33)
--- NOTE | 2021-09-17 10:50 | RAD_ITS ---
CLINICAL HISTORY: Female, 61 years old. T11 compression fracture. PROCEDURE: KYPHOPLASTY - T11 vertebrae. FLUOROSCOPY TIME (if supplied): (18.8 seconds) minutes/seconds. 10 images were submitted. TECHNIQUE: (All elements of maximal sterile barrier technique followed, including US elements as applicable) Intraoperative imaging provided for kyphoplasty of the T11 vertebrae. RAD/Spine 1 View Any Level IMPRESSION: Intraoperative imaging provided for kyphoplasty of the T11 vertebrae. Electronically Signed: Jorge Doherty MD at 11:48 EDT , Service support ,
--- NOTE | 2021-09-17 11:00 | BONBX_PTH ---
PATIENT: NATALIA MARQUEZ LOC: [facility] U#:[id number] AGE/SX: 61/F ROOM: RE09/17/[address]: Dr. Joao Cedillo MD : 1960 BED: DIS: 09/17/2021 SPEC #: [id number] RECD: 09/17/21 12:00 STATUS: DEMIAN REYaima #: [id number] MARK: 09/17/21 11:[address]: Joao Cedillo DEPT: SURGICAL PATHOLOGY RECD BY: Crystal Granda ENTERED: 09/17/21 13:16 SP TYPE: Bone OTHR DR: Dr. Ryan Leyva MD Tissues: Vertebra, NOS Procedures: Decalcification bone/plaque Surgery Specimen Level IV HEADER OPERATION: Kyphoplasty T11 PRE-OP DIAGNOSIS: Traumatic compression fracture T11 TISSUE SUBMITTED: Bone biopsy T11 MICROSCOPIC DIAGNOSIS T11, bone biopsy: A piece of bone with reactive changes and recent hemorrhage, negative for malignancy. VICTORIANO:sebastian 09/18/2021 MICROSCOPIC DESCRIPTION Slides are reviewed. GROSS DESCRIPTION Received in fixative is one container labeled with the patient's name and designated bone biopsy T11. The specimen consists of an elongated fragment of bone measuring 1.2 cm in length and 0.1 cm in diameter. The entire specimen is submitted in one cassette after decalcification. / VICTORIANO:sebastian 09/17/21 TC:5 CPT: 31801, 47842
[2021-09-17] MEDS: Bacitracin 500 UNITS/GM PACKET (11:08)
--- NOTE | 2021-09-17 11:38 | OP.PCM_ITS ---
Report of Operation Date of Procedure: 09/17/21 Description of Surgical Findings:: PROCEDURES: 1. David balloon kyphoplasty at the T11 2. Insertion of David HV-R bone cement under low pressure at the T11 3. Bone biopsy at T11 4. Fluoroscopic guidance and interpretation of images PREOPERATIVE DIAGNOSES: Acute traumatic compression fracture of T11 POSTOPERATIVE DIAGNOSES: Acute traumatic compression fracture of T11 ANESTHESIA: MAC COMPLICATIONS: None BLOOD LOSS: Minimal <10 CC PROCEDURE IN DETAIL: History and physical today was reviewed. Risks and benefits of procedure explained. The patient understood, agreed to procedure, informed consent was obtained. IV inserted per routine protocol. The patient was taken to the operating room, placed in the prone position with a pillow positioned underneath the chest. A 2 g of Ancef IV piggyback was infused per anesthesia. The upper and middle back area was prepped and draped in a sterile fashion using iodine x3 and Ioban sheath. Under direct visualization with fluoroscopy with the C-arm, which brought into position on AP as well as lateral view at the T11 level., the T11 pedicle was then identified. In the view of the collapsed T11, a transpedicular approach to the vertebral body was appropriate. Starting on the left side at T11 level, the skin and subcutaneous tissue were anesthetized with approximately 10 cc of a mixture of 1% lidocaine and 0.25% Marcaine 50-50 [id number] needle was advanced through the T11 pedicle area and the periosteum was also anesthetized with the above mixture approximately 5 more cc through the junction of the pedicle and the vertebral body on the left side. Position was then confirmed on AP as well as lateral view. Following satisfactory placement of the needle to make sure it is further off the midline and interlaminar space. The stylet of the needle was then removed. A guide pen and then inserted through the 10-gauge trocar and advanced approximately 3 mm from the anterior cortex on the lateral view. AP and lateral images were then taken to verify position and trajectory of the needle. The needle was then removed leaving the guide pen in place. and advanced through the pedicle. a lateral image was taken to ensure that the cannula was positioned approximately 1 cm past the vertebral body and a lateral image was then taken to ensure correct [id number] and through the cannula, a drill was then advanced into the vertebral body under fluoroscopic guidance towards the anterior cortex creating a channel. The anterior cortex were then probed with guide pen to ensure no perforation in the anterior cortex. After completion of the entry into the vertebral body, a 50 mL inflatable bone tamp was then inserted through the cannula and advanced under direct fluoroscopic guidance into the vertebral body near the anterior cortex., The biopsy was then taken at the T11 level. After completion of the entry into the vertebral body, a balloon tamp utilizing radiopaque marker bands on the bone tamp were identified using AP and lateral images. the balloon was then inflated to approximately 2.5 mL and making sure that the pressure is not passing 400 psi. Expansion of the bone tamp was then done sequentially in an increments of 0.25 to 0.5 mL of contrast with a careful attention was being paid to the inflation pressure and the balloon position. The inflation was then monitored on AP and lateral view images. There was no breach of the lateral wall or the anterior cortex of the vertebral body. Direct reduction of the fracture was then achieved. Endplate movement was then noticed and approximately 5 mm of the height christian was achieved at T11 . Under fluoroscopic imaging and a bone void filler, internal fixation was achieved through a low pressure injection of a Dennison HV-R bone cement. The cavity was then filled with a total volume of 4 mL on the left side at T11. Once the bone cement had hardened, the cannula was then removed. Once the cannula was removed and satisfactory hemostasis was maintained, the incision as then closed with Steri-Strips. The patient was kept in the prone position for approximately 10 minutes post-cement injection. The patient was then turned into supine position, monitored briefly and returned to PACU. The patient was moving both of her lower extr emities at the same time without any apparent neurological deficits. Throughout the procedure, there were no intraoperative complications. ASSESSMENT AND PLAN: This is a 61-year-old female with acute traumatic compression fracture of T11, status post David balloon kyphoplasty at T11 and insertion of a Dennison HV?R bone cement under low pressure at T11 and a biopsy of T11 under fluoroscopic g uidance the patient will continue her current medication. The patient will follow-up in approximately 1 week for re- evaluation. Motor as well as sensory exam was unchanged from prior to procedure.
== END 2021-09-17 12:34 | disposition home or self-care (01) ==
LOC: SDC 09:04 → AC 09:10
PROVIDERS: PCP Internal Medicine; Referring Provider Anesthesiology Pain Medicine; Visit Provider Anesthesiology Pain Medicine
PROC: (CPT 20220; principal; 2021-09-17 10:45)
DX: S22.089A Unspecified fracture of T11-T12 vertebra, initial encounter for closed fracture (principal); X58.XXXA Exposure to other specified factors, initial encounter; Y93.9 Activity, unspecified; Y92.9 Unspecified place or not applicable; M51.37 Other intervertebral disc degeneration, lumbosacral region; M47.817 Spondylosis without myelopathy or radiculopathy, lumbosacral region; M46.96 Unspecified inflammatory spondylopathy, lumbar region; M50.10 Cervical disc disorder with radiculopathy, unspecified cervical region; M48.02 Spinal stenosis, cervical region; M47.22 Other spondylosis with radiculopathy, cervical region; M46.92 Unspecified inflammatory spondylopathy, cervical region; I10 Essential (primary) hypertension; F32.A Depression, unspecified; M79.7 Fibromyalgia; R73.03 Prediabetes; F41.9 Anxiety disorder, unspecified; M19.90 Unspecified osteoarthritis, unspecified site; K21.9 Gastro-esophageal reflux disease without esophagitis; I34.1 Nonrheumatic mitral (valve) prolapse; E66.9 Obesity, unspecified; Z68.35 Body mass index [BMI] 35.0-35.9, adult; G25.81 Restless legs syndrome; M06.9 Rheumatoid arthritis, unspecified; E78.5 Hyperlipidemia, unspecified; M10.9 Gout, unspecified; Z78.0 Asymptomatic menopausal state; Z87.440 Personal history of urinary (tract) infections; Z86.14 Personal history of Methicillin resistant Staphylococcus aureus infection; Z85.828 Personal history of other malignant neoplasm of skin; Z79.899 Other long term (current) drug therapy
CPT/HCPCS: 01992; 20220; 22513; 72020; 76000; 82962; 87426; 88305; 88307; 88311; C9803; J7120; J2405

== ENCOUNTER 2021-11-06 12:30 | Outpatient (RCR) | payer MEDICAID, SELFPAY ==
--- NOTE | 2021-10-03 14:30 | HP.PTEVAL_ITS ---
Patient's Visit Information NATALIA MARQUEZ is a 61 year old F referred to Physical Therapy by WOOD Ferreira with a diagnosis of Right Knee Pain. Date of Evaluation: 10/03/21 Physical Therapist: Linnette Mohr DPT - Visit Plan Frequency: 2x /Week Duration: 4 Weeks Plan: Focus on LE ROM and strength/stabilization. HEP Given: quad set, SLR, hamstring stretch, hip abd, hip add in sitting - Subjective Right TKR a year ago in July- she has pain in the quad and posterior knee. Insidious onset- it has been bothering her for awhile. The knee gets stiff and then she goes to do things and it bothers her. The pain comes and goes. When she is sitting or NWB the pain is 0/10. The more active she is the more uncomfortable the pain gets. Describes the pain as achy. No radiating pain- no N/T in the toes. Worst: 9/10. The pain goes away after an hour or more from sitting down. She has had x-rays and everything is in alignment and its all correct- thinks its muscle pain around the joint. She is more sedentary throughout the aches and pains have taken over and she sits most of the day. Bothers her to application coordinator the kitchen to cook a meal. She has stairs at home and she limits the trips up and down them. She fell last December and has been hesitant since then on the stairs. No medication or injection in the knee. She doesn't do any exercise for the knee she just sits and rotates it a lot. Sleep: not disturbed. No AD use at home. PMHx: chronic pain, irregular heart beat, HTN, depression Meds: potassium, oxybutin, metroprolol- Injections in her back/neck by Dr. Flores (Aug 2021). She had T11 gluing of her vert about a month ago and she goes back for a follow up tomorrow. - Objective Posture: FH, RS- can correct with verbal cues but does not maintain. Gait: slightly antalgic- decreased stance on the right LE. Observation: atrophy of the right quad. Palpation: tender along posterior knee, medial joint line and superior patella. HR/TR: able with UE A and reports pain. Stairs: asc/desc 8 non recip with 2 HR. SLS: unable to remove hands from wall for SLS- weight shifts onto the right leg- reports instability and pain. Sensation: WNL. ROM: 0-110 degrees with pain at end ranges and throughout range of motion both active and passive. Strength: Core: fair minus, Hip: 4/5 throughout, Knee: 4/5 pain with testing, Ankle: 5/5. Flex: HS: mod, Gastroc: moderate. Special Test: Mariella: positive, Grind Test: positive. Sit to Stand: unable without UE A, transfers: slow but able - Balance/Special Test Scores Lower Extremity Functional Score: 20 30 Second Chair Rise Test Seconds: 9 - Goals Goal 1:: Patient will be I with HEP and progression Goal Time Frame: 4-6 Weeks Goal 2:: Patient will asc/desc 8 stairs recip with 1 HR Goal Time Frame: 4-6 Weeks Goal 3:: Patient will perform 15 sit to stands in 30 sec Goal Time Frame: 4-6 Weeks Goal 4:: Patient will report no pain for 1 week Goal Time Frame: 4-6 Weeks - Rehabilitation Potential Physical Therapy Diagnosis: Patient presents with hypomobility- she has decreased painfree ROM, strength, flex and muscular endurance leading to abnormal gait and increased pain with ADL's. Rehabilitation Potential: Fair - Anticipated Interventions Thank you for the opportunity to evaluate your patient. For Medicare and Medicare HMO plans, please review the plan of care and approve it. It will need to be FAXED BACK to us at [phone] for Medicare purposes. For Medicare only, by signing this I certify the plan of care. Please let me know if there are questions or concerns regarding this plan of care. Physician Signature:___ Date:
--- NOTE | 2021-12-31 11:56 | HP.PT.NRP ---
NATALIA MARQUEZ was seen in my office for initial evaluation on 10/03/21. The following Plan of Care was established for this patient: Initial Frequency: 2x /Week Initial Duration: 4 Weeks This patient was last seen in our office . Pertinent comments regarding their Physical therapy will appear below: Patient has not attended physical therapy in over 30 days- appropriate for d/c and return to MD for further evaluation as needed. At this point I will be discontinuing this patient from physical therapy. I would be happy to see this patient again in the future if found appropriate by the physician. Thank you! Linnette Mohr DPT Balance/Gait/Functional tests - Balance/Special Test Scores Lower Extremity Functional Score: 20 30 Second Chair Rise Test Seconds: 9
== END 2021-11-06 19:00 | disposition home or self-care (01) ==
LOC: PT 12:30
PROVIDERS: PCP Internal Medicine; Referring Provider Physician Assistant; Visit Provider Physician Assistant
DX: M25.561 Pain in right knee (principal); M79.89 Other specified soft tissue disorders; Z96.651 Presence of right artificial knee joint
CPT/HCPCS: 97110; 97161

== ENCOUNTER 2022-01-15 13:52 | Outpatient (CLI) | payer MEDICAID, SELFPAY ==
--- NOTE | 2022-01-15 13:58 | BD_ITS ---
STUDY: DUAL ENERGY X-RAY ABSORPTIOMETRY / DXA REASON FOR EXAM: Female, 61 years old. Post menopausal TECHNIQUE: Bone Mineral Density (BMD) measurements of lumbar spine and bilateral hips were obtained. COMPARISON: Comparison is made with prior study dated 02/18/2012. FINDINGS: Lumbar Spine (L1-L4): g/cm2 (0.865) / T-score (-1.7) / Z-score (-0.1) Findings are suggestive of osteopenia with a moderate fracture risk. Left Femur Total: g/cm2 (0.840) / T-score (-0.8) / Z-score (0.3) Left Femoral Neck: g/cm2 (0.599) / T-score (-2.3) / Z-score (-0.9) Right Femur Total: g/cm2 (0.818) / T-score (-1.0) / Z-score (0.1) Right Femoral Neck: g/cm2 (0.573) / T-score (-2.5) / Z-score (-1.1) The T-Scores on the most recent prior examination were: Lumbar Spine (L1-L4): There has been worsening of bone density since the previous examination. Left Femur Total: which represents a worsening of 13.2%. Right Femur Total: which represents a worsening of 19.2%. BD/Dexa Bone Density Study IMPRESSION: The patient is considered osteopenic as outlined below according to World [place] Organization (WHO) criteria with a high fracture risk. There has been worsening of bone density since the previous examination. Reference Information: The T-score is the number of standard deviations above or below the standard which is normal for young adults at their peak bone mineral density. The World Health Organization (WHO) interprets the T-scores as follows: Above -1 Normal bone density Between -1 and -2.5 Osteopenia Equal to / or below -2.5 Osteoporosis As a practical clinical guideline, osteopenia may be graded as follows: Mild -1 through -1.5 Moderate -1.6 through -2.0 Severe -2.1 through -2.4 The Z-score is the number of standard deviations above or below age-matched controls. A Z-score of less than -1.5 would be considered abnormal. References: 1. NIH Osteoporosis and Related Bone Diseases www osteo.org 2. International Society for Clinical Densitometry www iscd.org 3. National Osteoporosis Foundation www nof.org Electronically Signed: Jorge Doherty MD at 12:57 EST ,
== END 2022-01-15 23:59 | disposition home or self-care (01) ==
LOC: OPBD 13:53
PROVIDERS: PCP Internal Medicine; Referring Provider Internal Medicine; Visit Provider Internal Medicine
DX: Z78.0 Asymptomatic menopausal state (principal)
CPT/HCPCS: 77080

== ENCOUNTER 2022-01-29 11:56 | Outpatient (CLI) | payer MEDICAID, SELFPAY ==
[2022-01-29 11:57] LABS: Mucous, Urine 0 SEEN /hpf (<or=2+)
[2022-01-29 15:46] LABS: Vitamin D,25 Hydroxy 13.2 ng/mL
[2022-01-29 15:50] LABS: Anion Gap 10 (5-15); BUN 12 mg/dL (7-18); BUN/Creat Ratio 13.5 RATIO (10-20); Calcium,Total 9.2 mg/dL (8.5-10.1); Chloride 96 mmol/L (98-107); Creatinine, Serum 0.89 mg/dL (0.55-1.02); EST Glomerular Filtration Rate 68 mL/min (>60); Est Glom Filt Rate - Afr Amer 82 mL/min (>60); Glucose 100 mg/dL (74-106); Potassium 3.6 mmol/L (3.5-5.1); Sodium Level 134 mmol/L (136-145)
[2022-01-29 16:24] LABS: Color, Urine Yellow (Yellow); Glucose, Dipstick Normal (Normal); Ketone-Dipstick Negative (Negative); Leukocyte Esterase-Dipstick 500 /ul (Negative); Nitrite-Dipstick Negative (Negative); Occult Blood-Urine Negative /ul (Negative); Protein-Dipstick Negative (Negative); Urine Bilirubin Dipstick Negative (Negative); Urine Clarity Sl. Cloudy (Clear); Urine Urobilinogen 1 mg/dl (Normal)
[2022-01-29 16:46] LABS: Amorphous Sediment 1+ PHOS; Bacteria 3+ /hpf (None Seen); Red Blood Cells-Urine 0-5 SEEN /hpf (0-5); Squamous Epithelial Cells - UA 0-5 SEEN /hpf (5-10); White Blood Cells 25-50 SEEN /hpf (0-5)
== END 2022-01-29 23:59 | disposition home or self-care (01) ==
LOC: BIMLAB 11:56
PROVIDERS: PCP Internal Medicine; Referring Provider Internal Medicine; Visit Provider Internal Medicine
DX: N39.0 Urinary tract infection, site not specified (principal); M85.80 Other specified disorders of bone density and structure, unspecified site
CPT/HCPCS: 36415; 80048; 81001; 82306; 87077; 87086; 87088; 87186

== ENCOUNTER 2022-02-05 12:53 | Outpatient (CLI) | payer MEDICAID, SELFPAY ==
--- NOTE | 2022-02-05 14:12 | ST.MBS ---
Modified Barium Swallow - Patient Information Study Date: 02/05/22 Study Time: 13:00 Direct Billable Minutes: 90 Total Minutes procedure & reportin Diagnosis: Swallowing disorder (R13.10) Referring Physician: Ryan Leyva Reason for Referral: Objectively assess swallow function, risk for aspiration, and determine recommendations for least restrictive diet textures and compensatory strategies to improve safety of swallow. Medical History: The patient is a 61 year old female with extensive PMH, including skin cancer (no treatment to the head or neck area), GERD, and chronic pneumonia (most recent ~2 years ago). SEE chart for full history. She has recently experienced increased difficulty swallowing hard, dry textures, such as breads, meats, and crackers. She reports sensation of retention in base of throat. Liquid wash and multiple swallows can help clear sensation, but not always. She denies coughing, choking, or odynophagia. She reports xerostomia. These episodes of swallowing difficulty cause her panic. Current Diet Ordered: Regular / Thin Dentition: Natural Teeth - Missing one tooth. Pt has partials, but typically does not wear them. Mental Status: WNL Respiratory Status: Oxygenating on Room Air - Penetration-Aspiration Scale Penetration-Aspiration Scale: OBJECTIVE ASSESSMENT OF SWALLOW FUNCTION (QUANTITATIVE ? PER TRIAL): PENETRATION / ASPIRATION SCALE (GUZMAN): 1 = does not enter airway 2 = enters airway/above vocal folds/ejected 3 = enters airway/above vocal folds/not ejected 4 = enters airway/contacts vocal folds/ejected 5 = enters airway/contacts vocal folds/not ejected 6 = enters airway/below vocal folds/ejected 7 = enters airway/below vocal folds/not ejected despite effort 8 = enters airway/below vocal folds/no effort VIDEOFLOROSCOPIC SCALE SCORE (GUZMAN): Grade I = aspiration of material that has penetrated into the laryngeal vestibule, intact cough reflex Grade II = aspiration < 10 % of the bolus, intact cough reflex Grade III = aspiration of < 10 % of the bolus, reduced cough reflex or aspiration of > 10 % of the bolus, intact cough reflex Grade IV = aspiration of > 10 % of the bolus, reduced cough reflex - Penetration-Aspiration Scale Score Thin Liquid via teaspoon Result: 1= does not enter airway Thin Liquid via teaspoon Trial 2 Result: 1= does not enter airway Thin Liquid via large single sip from cup Result: 1= does not enter airway Mcgaffey Thick Liquid via small single sip from cup Result: 1= does not enter airway Honey Thick Liquid via small single sip from cup Result: 1= does not enter airway Pudding with esophageal screen Result: 1= does not enter airway Comment: Significant esophageal retention in upper, mid, and distal esophagus with slow emptying and retrograde flow of bolus remaining below upper esophageal sphincter. Cookie Result: 1= does not enter airway Cookie with esophageal screen Result: 1= does not enter airway Comment: Significant esophageal retention in upper, mid, and distal esophagus with slow emptying and retrograde flow of bolus remaining below upper esophageal sphincter. Thin Liquid via single sip from straw Result: 1= does not enter airway Thin Liquid via sequential sips from cup Result: 1= does not enter airway - Oral Phase Labial Seal: No Labial Escape Tongue Control During Bolus Hold: Cohesive bolus between tongue to palatal seal Bolus Preparation/Mastication: Slow prolonged chewing/mashing with complete recollection Bolus Transport/Lingual Motion: Repetitive/disorganized tongue motion - Repetitive tongue motion for cookie trial during A-P transport of bolus Oral Residue: Residue collection on oral structures - Pharyngeal Phase Initiation of Pharyngeal Swallow: Bolus head in valleculae Soft Palate Elevation: Trace column of contrast/air between soft palate and pharyngeal wall Laryngeal Elevation: Partial superior movement thyroid cart/partial apprx aryt-epig petiole Anterior Hyoid Excursion: Complete anterior movement Epiglottic Movement: Complete inversion Laryngeal Vestibule Closure at Height of Swallow: Complete; no air/contrast in laryngeal vestibule Pharyngeal Stripping Wave: Present - complete Pharyngoesophageal Segment Opening: Complete distension and complete duration; no obstruction of flow Tongue Base Retraction: Narrow column of contrast between tongue base & post. pharyngeal wall Pharyngeal Residue: Trace residue within or on pharyngeal structures - Esophageal Phase Esophageal Clearance: Esophageal retention w/ retrograde flow below pharyngoesophageal seg. - Diagnosis/Impression Diagnosis: Esophageal dysphagia (R13.14) Impression: The patient demonstrates repetitive tongue motion to propel cookie bolus anteriorly. She also demonstrated piecemeal deglutition of cookie; however, the patient independently cleared oral residue with independent use of second swallow. Piecemeal deglutition likely due to xerostomia reported by patient. The patient has mildly decreased laryngeal elevation during the swallow; however, she demonstrated good airway closure with all trials during the swallow with excellent anterior hyoid excursion and epiglottic inversion. She had trace pharyngeal residue in the vallecula after the swallow, which she cleared with independent use of double swallow. No laryngeal penetration or aspiration observed during the study. The patient did present with significant esophageal retention of pudding and cookie contrast in her upper, mid, and distal esophagus with retrograde flow below UES. The patient is at increased risk for aspiration of reflux, especially with larger meals. She would benefit from GI consult to manage esophageal retention and reflux. - Recommendations Diet: Regular Textures - Consider cutting meats/dry foods bite size and moistening with sauce/gravy, Thin Liquids Comment: Would consider consuming smaller, more frequent meals (4-5 small meals daily). Compensatory Strategies: Small Bites, Slow Rate, Sitting upright, Remain sitting upright for 30 minutes after PO intake - 60 min after po intake Recommend Repeat Modified Barium Swallow: No Need for Skilled Speech Therapy Services: No Recommended Referrals: GI Consult - Significant esophageal retention in upper, mid, and distal esophagus with slow emptying and retrograde flow of bolus remaining below upper esophageal sphincter. Increased risk for aspiration of reflux. Education Completed: 1. Described result of evaluation. - Discussed results with review of images and written recommendations. Education well received and pt verbalized understanding. [facility] encouraged the patient to follow up with her PCP regarding GI consult. - Status Active ST Patient: Active - Contact Information [facility] Speech Therapy:: Melody Worthy M.A. [facility] Speech-Language Pathologist [facility] [address] [place] [address] [email or web address] [phone] 02/05/22 14:36
== END 2022-02-05 23:59 | disposition home or self-care (01) ==
LOC: RAD 12:54
PROVIDERS: PCP Internal Medicine; Referring Provider Internal Medicine; Visit Provider Internal Medicine
DX: R13.10 Dysphagia, unspecified (principal)
CPT/HCPCS: 74230; 92611

== ENCOUNTER 2022-03-20 20:19 | Outpatient (CLI) | payer MEDICAID, SELFPAY | END 2022-03-20 23:59 | disposition home or self-care (01) | LOC: SL 20:19 | PROVIDERS: PCP Internal Medicine; Visit Provider Internal Medicine | DX: G47.10 Hypersomnia, unspecified (principal) | CPT/HCPCS: 95811 ==

== ENCOUNTER → 2022-04-08 | Outpatient (CLI) | payer MEDICAID, SELFPAY ==
[2022-04-08 15:59] LABS: Absolute Lymphocyte Count 2.73 X10^3/uL (0.83-4.51); Absolute Neutrophil Count 3.8 X10^3/uL (2.0-7.7); Basophil# 0.09 X10^3/uL; Basophil% 1.2 % (0-1); Eosinophils% 2.7 % (0-5); Hemoglobin 14.3 g/dL (12.0-15.0); Lymphocyte # 2.73 X10^3/ul (0.83-4.51); Lymphocyte % 37.2 % (19-41); Mean Corp Hgb Conc 33.3 g/dL (32-36); Mean Corpuscular Hgb 30.9 pg (27.0-32.0); Mean Corpuscular Volume 92.9 fL (81-99); Mean Platelet Vol. 9.3 fl (6.2-12.0); Monocyte# 0.52 X10^3/uL; Monocyte% 7.1 % (0-10); NRBC Flagged by Analyzer 0 % (0-5); Neutrophil # 3.75 X10^3/uL (2.7-7.7); Neutrophil % 51.3 % (47-70); Platelet Count 302 K/mm3 (150-450); RBC Distribution Width CV 12.3 % (11.6-14.6); RBC Distribution Width SD 42.2 fl (35.1-43.9); Red Blood Count 4.63 M/mm3 (4.2-5.4); White Blood Count 7.3 K/mm3 (4.4-11.0)
[2022-04-08 16:17] LABS: International Normalized Ratio 1.1; Prothrombin Time (Protime)PT. 13.8 SECONDS (11.7-14.9)
[2022-04-08 16:21] LABS: Erythrocyte Sedimentation Rate 26 mm/hr (0-30)
[2022-04-08 16:30] LABS: Hemoglobin A1c 5.8 % (3.8-5.6)
[2022-04-08 16:48] LABS: HIV - WCH Non-Reactive (Nonreactive)
[2022-04-08 23:55] LABS: ALB/GLOB Ratio 0.9 RATIO (0.9-2.4); AST(SGOT) 28 U/L (15-37); Alanine Aminotransfer ALT/SGPT 32 U/L (13-56); Albumin, Serum 3.4 g/dL (3.2-5.0); Alkaline Phosphatase 60 U/L (45-117); Anion Gap 9 (5-15); BUN 12 mg/dL (7-18); BUN/Creat Ratio 15.9 RATIO (10-20); Bilirubin, Direct 0.19 mg/dL (0.00-0.30); CRP 5.54 mg/L (0.0-3.0); Calcium,Total 8.5 mg/dL (8.5-10.1); Chloride 105 mmol/L (98-107); Creatinine, Serum 0.76 mg/dL (0.55-1.02); EST Glomerular Filtration Rate 82 mL/min (>60); Est Glom Filt Rate - Afr Amer 99 mL/min (>60); Ferritin 58 ng/mL (8-252); Globulin 3.8 g/dL (2.2-4.2); Glucose 99 mg/dL (74-106); LDH 197 U/L (84-246); Potassium 3.7 mmol/L (3.5-5.1); Protein, Total 7.2 g/dL (6.4-8.2); Sodium Level 138 mmol/L (136-145); Thyroid Stim Hormone (TSH) 1.59 uIU/mL (0.358-3.74)
[2022-04-10 14:11] LABS: Anti-Centromere B Ab <0.2 AI (0.0-0.9); Anti-Chromatin <0.2 AI (0.0-0.9); Anti-Jo <0.2 AI (0.0-0.9); Anti-Scleroderma-70 AB 0.3 AI (0.0-0.9); RNP Ab <0.2 AI (0.0-0.9); SJOGREN'S Anti-SS-A test < 0.2 AI (0.0-0.9); SJOGREN'S Anti-SS-B test < 0.2 AI (0.0-0.9); Smith Ab <0.2 AI (0.0-0.9)
[2022-04-10 17:14] LABS: Anti-Mitochondrial AB <20.0 Units (0.0-20.0); Anti-dsDNA Ab <1 IU/mL (0-9)
[2022-04-17 18:08] LABS: Ceruloplasmin 22.6 mg/dL (19.0-39.0); Cytoplasmic Ab (C-ANCA) <1:20 titer (Neg:<1:20); Endomysial Antibody IgA Negative (Negative); HEPATITIS B SURFACE AG Negative (Negative); Hep C Antibodies <0.1 s/co ratio (0.0-0.9); Hepatitis A IgM Antibody Negative (Negative); Hepatitis B Core AB IgM Negative (Negative); Immunoglobulin A 347 mg/dL (87-352); Immunoglobulin E 4 IU/mL (6-495); Immunoglobulin G 862 mg/dL (586-1602); Immunoglobulin M 241 mg/dL (26-217)
[2022-04-17 18:51] LABS: Anti-Smooth Muscle ABS 9 Units (0-19); Copper, Serum or Plasma 99 ug/dL (80-158); Haptoglobin 159 mg/dL (37-355); Perinuclear Ab (P-ANCA) <1:20 titer (Neg:<1:20)
[2022-04-17 18:52] LABS: Gastrin, Serum 415 pg/mL (0-115); t-Transglutaminase IgA <2 U/mL (0-3)
== END | disposition home or self-care (01) ==
LOC: LAB 15:12
PROVIDERS: PCP Internal Medicine; Referring Provider Nurse Practitioner Adult Health; Visit Provider Nurse Practitioner Adult Health
DX: K52.9 Noninfective gastroenteritis and colitis, unspecified (principal); R13.10 Dysphagia, unspecified; K76.0 Fatty (change of) liver, not elsewhere classified; M19.90 Unspecified osteoarthritis, unspecified site; M79.7 Fibromyalgia
CPT/HCPCS: 36415; 80053; 80074; 82140; 82248; 82390; 82525; 82728; 82784; 82785; 82941; 83010; 83036; 83516; 83615; 84443; 85025; 85610; 85652; 86140; 86225; 86235; 86255; 86256; 86431; 86703

== ENCOUNTER → 2022-04-10 | Outpatient (CLI) | payer MEDICAID, SELFPAY ==
[2022-04-15 10:07] LABS: H. PYLORI STOOL AG Negative (Negative)
[2022-04-15 13:35] LABS: Giardia Lamblia, Stool EIA Negative (Negative)
[2022-04-15 13:41] LABS: Calprotectin, Stool 75 ug/g (0-120)
== END | disposition home or self-care (01) ==
LOC: LABSPEC 13:31
PROVIDERS: PCP Internal Medicine; Visit Provider Nurse Practitioner Adult Health
DX: K52.9 Noninfective gastroenteritis and colitis, unspecified (principal)
CPT/HCPCS: 83630; 83993; 87177; 87209; 87329; 87493; 87506

== ENCOUNTER → 2022-04-18 | Day surgery (SDC) | payer MEDICAID, SELFPAY ==
[2022-04-18] MEDS: Lidocaine Jelly 2% 20 ML Syringe (URO-JET) 1 APPLIC (08:25)
[2022-04-18 08:29] VITALS: BP 124/83; PULSE 69; RESP 16; TEMP 35.8; O2SAT 96
== END | disposition home or self-care (01) ==
PROVIDERS: PCP Internal Medicine; Referring Provider Internal Medicine Gastroenterology; Visit Provider Internal Medicine Gastroenterology
PROC: F00ZJWZ Instrumental Swallowing and Oral Function Assessment using Swallowing Equipment (ICD-10-PCS; CPT 43235; principal; 2022-04-18 07:55)
DX: K22.2 Esophageal obstruction (principal)
CPT/HCPCS: 91010

== ENCOUNTER → 2022-04-19 | Outpatient (CLI) | payer MEDICAID, SELFPAY ==
--- NOTE | 2022-04-19 14:22 | CT_ITS ---
STUDY: CT ABDOMEN AND PELVIS WITH CONTRAST REASON FOR EXAM: Female, 61 years old. Abd pain, diarrhea -- oral and IV RADIATION DOSAGE (If Supplied By Facility): CTDIvol = ( 16.74 ) mGy, DLP = ( 1105.95 ) mGycm TECHNIQUE: Transaxial images were obtained from the dome of the diaphragm to the symphysis pubis with oral contrast. Oral and amp; IV Redi-CAT and amp; 75mL Isovue-300 was administered. Sagittal and coronal images were reconstructed. Individualized dose optimization techniques were used for this CT. COMPARISON: Comparison is made with prior examination dated 08/14/2021. FINDINGS: The visualized lung bases are unremarkable. The visualized portions of the heart are within normal limits. There is decreased attenuation of the liver consistent with steatosis. The patient is status post cholecystectomy. Normal spleen. There is diffuse atrophy of the pancreas. Normal bilateral adrenal glands. Normal right kidney. Normal left kidney. There is a small hiatal hernia. Normal small intestine. Normal colon. There is non-visualization of the appendix. Normal abdominal aorta. Normal inferior vena cava. Normal retroperitoneum. Normal urinary bladder. There is absence of the uterus consistent with a prior hysterectomy. Normal abdominal wall. There are diffuse degenerative changes of the visualized lumbar spine. Prior vertebroplasty of the T11 vertebrae with the loss of height. CT/Abdomen/Pelvis WITH Contrast IMPRESSION: Diffuse fatty infiltration of the liver. The patient is status post cholecystectomy. Electronically Signed: Jorge Doherty MD at 15:04 EDT ,
== END | disposition home or self-care (01) ==
LOC: CT 14:04
PROVIDERS: PCP Internal Medicine; Visit Provider Nurse Practitioner Adult Health
DX: K52.9 Noninfective gastroenteritis and colitis, unspecified (principal); R10.9 Unspecified abdominal pain
CPT/HCPCS: 74177; Q9967

== ENCOUNTER → 2022-04-22 | Outpatient (CLI) | payer MEDICAID, SELFPAY ==
--- NOTE | 2022-04-22 08:13 | US_ITS ---
STUDY: ABDOMINAL ULTRASOUND - RIGHT UPPER QUADRANT REASON FOR VISIT: Female, 61 years old eval liver for elastography -- FATTY LIVER TECHNIQUE: Ultrasound evaluation of the right upper quadrant was performed with real-time and static morris-scale imaging. TECHNICAL QUALITY: Adequate. COMPARISON: Comparison is made with prior study dated 04/19/2022. FINDINGS: Liver: The liver is enlarged and measures 20 1. cm. There is increased echogenicity consistent with fatty infiltration. The bile ducts are within normal limits. There is hepatic color flow. The direction of portal flow is hepatopetal. There is no demonstrated mass lesion. Gallbladder: The patient is status post cholecystectomy. Common Bile Duct (C.B.D.): The common bile duct measures 4.9 mm. Pancreas: Normal size of the head, body and tail of the pancreas. There is increased echogenicity of the pancreas. There is no demonstrated pancreatic mass or cyst. Right Kidney: Normal size of the right kidney. The right kidney measures 10.2 cm x 5.1 cm x 4.4 cm. Normal renal cortex. The right cortex measures 1.8 cm. There is no demonstrated renal mass or cyst. There is no right hydronephrosis. US/Abdomen Limited IMPRESSION: Hepatomegaly and diffuse fatty infiltration of the liver. Electronically Signed: Jorge Doherty MD at 9:02 EDT ,
--- NOTE | 2022-04-22 08:13 | US_ITS ---
STUDY: ABDOMINAL ULTRASOUND - ELASTOGRAPHY REASON FOR VISIT: Female, 61 years old. Fatty infiltration of the liver. TECHNIQUE: Liver stiffness measurements were obtained on a Quinyx AB RS 85 ultrasound machine using a CA 1-7 probe following the SRU guidelines. 3 measurements were obtained using a 2-D-SWE method. TheIQR/M was 21% suggesting a quality data set. TECHNICAL QUALITY: Adequate. COMPARISON: Comparison is made with prior study earlier today. FINDINGS: Liver: Diffuse fatty infiltration of the liver. Median liver stiffness measured 10.5 kPa. US/Elastography Parenchyma/Organ IMPRESSION: Liver stiffness measures 10.5 kPa compatible with F2-F3 (Mild to moderate liver fibrosis) Metavir score. Electronically Signed: Jorge Doherty MD at 9:09 EDT ,
== END | disposition home or self-care (01) ==
LOC: US 07:53
PROVIDERS: PCP Internal Medicine; Referring Provider Nurse Practitioner Adult Health; Visit Provider Nurse Practitioner Adult Health
DX: K76.0 Fatty (change of) liver, not elsewhere classified (principal)
CPT/HCPCS: 76705; 76981

== ENCOUNTER 2022-05-01 08:57 | Day surgery (SDC) | payer MEDICAID, SELFPAY ==
[2022-05-01] VITALS (7 sets, daily range): BP systolic 111–134; BP diastolic 71–85; PULSE 62–72; RESP 16; TEMP 36.7–36.8; O2SAT 94–96; BMI 35.9
--- NOTE | 2022-05-01 09:43 | PCM.HP.BLA ---
History and Physical Date of Admission: 05/01/22 JACI MARQUEZ, is a 61 F who presents to the office today for difficulty swallowing and diarrhea Difficulty swallowing began one yr ago, progressively getting worse. No CP, no esophageal spasms. Meat or dry foods are especially difficult to swallow. Sometimes water is difficult to swallow. Having to work hard to get food down, then that makes her panic especially if she's at a restaurant. She had modified barium swallow with speech therapist in January which showed retention throughout esophagus, slow emptying, and retrograde flow of bolus. She is on BID pantoprazole 40 mg--not helpful for the swallowing issue. No relief of dysphagia with sucralfate, but it does help with epigastric pain. Has been getting sharp epigastric pain, occurs when eating, better if she drinks lots of water, this started several years ago. Different from burning epigastric pain that she also gets. Lifelong GI symptoms due to anxiety, she describes this as indigestion. Heartburn from spicy foods, peanut butter. Doesn't tolerate milk. Burning pain in epigastric area, is nauseous then, no vomiting. Diarrhea x many years, she eats and then has to run to the bathroom, it's urgent, can have accidents when can't get there in time. Usually watery with some formed stool in it, often bright yellow. Never any blood, denies melena and hematochezia. Rare formed stool. She has had 2 colonoscopies, negative. No EGD. Significant list of comorbidities which includes: anxiety, DDD, depression, fibromyalgia, GERD, gout, dyslipidemia, hypersomnolence, HTN, MVP, obesity, osteoporosis, recurrent UTI, hypokalemia, SI joint pain, fatty liver, insomnia Hx RA, saw Dr Padilla but insurance changed so she then went to [facility]--they told her she didn't have RA Amitriptyline is for pain 02/05/22 Modified Barium Swallow Study with speech therapist: Significant esophageal retention in upper, mid, and distal esophagus with slow emptying and retrograde flow of bolus remaining below upper esophageal sphincter. Increased risk for aspiration of reflux. ROS Const Constitutional: Positive for fatigue ENT ENT: Positive for difficulty swallowing Cardio Cardiology: Positive for leg pain with exertion Gastro GI: Positive for abdominal pain, diarrhea, heartburn, difficulty swallowing and nausea/dyspepsia; No belching, bloating, change in bowel habits, change in stool character, coffee ground emesis, constipation, cramping, feeling full early, excessive flatus, incontinent of stools, Vomiting blood/hematemesis, Blood in stool, loose stools, Black,tarry stools, pain with swallowing, vomiting or other Musc Musculoskeletal: Positive for joint pain, back pain, joint swelling, muscle cramps, muscle weakness, stiffness, tingling, Arthritis, restless legs and leg pain with exertion Skin Skin: No yellowing of the eye or itchy eyes Neuro Neurology: Positive for tingling and restless legs Psych Psychiatric: Positive for anxiety and Positive for depression Endo Endocrine: Positive for fatigue Aller/Imm Allergy/Immunologic: No itchy eyes Woo/Lymp Hematologic/Lymphatic: No easy bleeding or easy bruising Exam Const General: cooperative, comfortable, well developed and well groomed Eyes Conjunctivae: conjunctivae normal Sclera: sclerae normal Neck Neck: normal visual inspection Resp Effort & Inspection: normal respiratory effort GI Inspection: obesity Palpation: soft, no hepatosplenomegaly, no masses and nontender Neuro General: gait normal Psych Mood: congruent mood Affect: normal affect Quality Reporting Tobacco Screening ([facility] 138) Smoking Status: Never smoker Assessment and Plan Assessment and Plan (1) Swallowing disorder: Status: Chronic Orders: Orders: Comprehensive Metabolic Profil Today CRP Today LDH Today CBC W/Diff, Automated Today Erythrocyte Sed Rate Today FAITH Comprehensive Panel Today ANCA Today Celiac Disease Profile Today Immunoglobulins G/A/M/E Today Gastrin, Serum Today Thyroid Stim Hormone (TSH) Today Hemoglobin A1c Today Hepatitis Panel Acute Today Plan - Gretchen Dickens NP, [employer] SUPERVISOR-C: This very nice 61 yr old female has significant difficulty swallowing food and liquids. MBSS shows esophageal retention, slow emptying, retrograde flow of bolus; increased risk for aspiration. I discussed this with Dr Summers. DDx includes achalasia, motility disorder, stricture. We will get manometry. EGD with Reese pH monitor off PPI. Continue pantoprazole and sucralfate for now. f/u with me in 6 wks, then f/u with Dr Summers 2 wks after endoscopy to review biopsy results. (2) Chronic diarrhea: Status: Chronic Orders: Orders: Calprotectin, Stool Today Ova and Parasites [id number] Today CDIFF (PCR) Today ENTERIC PATHOGEN PANEL STOOL Today Stool Lactoferrin/WBC Today Giardia Lamblia, Stool EIA Today H. PYLORI STOOL AG Today Comprehensive Metabolic Profil Today CRP Today LDH Today CBC W/Diff, Automated Today Erythrocyte Sed Rate Today FAITH Comprehensive Panel Today ANCA Today Celiac Disease Profile Today Immunoglobulins G/A/M/E Today Gastrin, Serum Today Thyroid Stim Hormone (TSH) Today Hemoglobin A1c Today Hepatitis Panel Acute Today Abdomen/Pelvis WITH Contrast Today Plan - Gretchen Dickens [employer] SUPERVISOR, [employer] SUPERVISOR-C: She has chronic diarrhea, increased gastrocolic reflex. Biochemical w/u. Stool tests. Colestipol starting with 1 gram bid. EGD and colonoscopy. (3) Abdominal pain: Status: Acute Orders: Orders: Abdomen/Pelvis WITH Contrast Today Plan - Gretchen Dicknes [employer] SUPERVISOR, [employer] SUPERVISOR-C: Chronic intermittent epigastric pain. CT w/ oral and IV contrast considering abdominal pain and chronic diarrhea. (4) Fatty liver: Status: Acute Orders: Orders: HIV - [facility] Today Ferritin Today Prothrombin Time w/INR Today Anti-Mitochondrial AB Today Anti-Smooth Muscle ABS Today Ceruloplasmin Today Copper, Serum or Plasma Today Haptoglobin Today Ammonia Today Elastography Parenchyma/Organ Today Abdomen Limited Today Plan - Gretchen Dickens NP, [employer] SUPERVISOR-C: Discussed fatty liver, handout on NAFLD provided, will get liver elastography to determine degree of fibrosis. Biochemical w/u. (5) Fibromyalgia: Status: Chronic Orders: Orders: Rheumatoid Factor Today (6) Arthritis: Status: Chronic Orders: Orders: Rheumatoid Factor Today Plan - Gretchen Dickens NP, [employer] SUPERVISOR-C: Biochemical w/u for fatty liver includes FAITH comprehensive. Will also include RF test considering possible hx of RA. May need to refer to a new car mover depending on results. Plan Details Other Medications: New: colestipol 1 g PO BID 60 tabs 2RF diarrhea Discontinued: pregabalin Discontinued Reason: Pt no longer taking 225 mg PO cephalexin Discontinued Reason: Order Completed 500 mg PO TID 21 tabs 0RF I have re-examined the patient. There are no clinical changes since date of exam.
[2022-05-01] MEDS: Lactated Ringers 1,000 ML 15 ML IV (09:52)
--- NOTE | 2022-05-01 10:00 | EGD_PTH ---
PATIENT: NATALIA MARQUEZ LOC: EN U#:[id number] AGE/SX: 61/F ROOM: RE05/01/[address]: Dr. Casey Summers DO : 1960 BED: DIS: 05/01/2022 SPEC #: [id number] RECD: 05/01/22 12:56 STATUS: DEMIAN WILLIAN #: [id number] MARK: 05/01/22 10:[address]: Casey Summers DEPT: SURGICAL PATHOLOGY RECD BY: Crystal Granda ENTERED: 05/01/22 13:55 SP TYPE: EGD BIOPSY [facility] DR: Dr. Ryan Leyva MD Tissues: A - Gastric mucous membrane B - Gastric mucous membrane C - Gastric fundus D - Esophagus, NOS E - Esophagus, NOS Procedures: Surgery Specimen Level IV HEADER OPERATION: EGD with biopsy and dilation (MAC) with PH probe PRE-OP DIAGNOSIS: Swallowing disorder, chronic diarrhea, abdominal pain, fatty liver TISSUE SUBMITTED: A ? Gastric antrum, B ? Incisor region, C ? Fundus ulcer, D ? Distal esophagus biopsy, E ? Random esophagus biopsy MICROSCOPIC DIAGNOSIS A. Gastric antrum, biopsy: Chronic active gastritis with focal ulceration. See comment. B. Incisor region, biopsy: Chronic active gastritis. C. Gastric fundic ulcer, biopsy: Chronic active gastritis. D. Distal esophagus, biopsy: Fragments of gastroesophageal mucosa with mild chronic inflammation. Focal changes of reflux. 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 No evidence of dysplasia. See comment. E. Esophagus, random biopsy: No pathologic change. AM:sebastian 05/02/2022 COMMENT A. The results of immunohistochemistry for Helicobacter pylori will be reported separately ([id number]). D. Immunohistochemistry ([id number]) for P53 and Ki-67 will be performed and results will be reported separately. Alcian blue/PAS stain with matched control supports the above diagnosis. MICROSCOPIC DESCRIPTION Slides are reviewed. GROSS DESCRIPTION A - Received in fixative is one container labeled with the patient's name and designated gastric antrum biopsy. The specimen consists of two irregular fragments of light huizar soft tissue that in aggregate measure 0.6 x 0.5 x 0.1 cm. The specimen is totally submitted in one cassette. B - Received in fixative is one container labeled with the patient's name and designated incisor lesion biopsy. The specimen consists of two irregular fragments of light huizar soft tissue that in aggregate measure 1 x 0.5 x 0.1 cm. The specimen is totally submitted in one cassette. C - Received in fixative is one container labeled with the patient's name and designated fundic ulcer biopsy. The specimen consists of two irregular fragments of light huizar soft tissue that in aggregate measure 0.6 x 0.6 x 0.1 cm. The specimen is totally submitted in one cassette. D - Received in fixative is one container labeled with the patient's name and designated distal esophagus biopsy. The specimen consists of two irregular fragments of light huizar soft tissue that in aggregate measure 0.5 x 0.5 x 0.1 cm. The specimen is totally submitted in one cassette. E - Received in fixative is one container labeled with the patient's name and designated random esophagus biopsy. The specimen consists of two irregular fragments of light huizar soft tissue that in aggregate measure 0.7 x 0.5 x <0.1 cm. The specimen is totally submitted in one cassette. / AM:sebastian 05/01/2022 TC:2 CPT: 14949 x5, [id number]
--- NOTE | 2022-05-01 10:00 | IMM_PTH ---
PATIENT: NATALIA MARQUEZ LOC: EN U#:[id number] AGE/SX: 61/F ROOM: RE05/01/[address]: Dr. Casey Summers DO : 1960 BED: DIS: 05/01/2022 SPEC #: [id number] RECD: 05/01/22 14:21 STATUS: DEMIAN REYaima #: [id number] MARK: 05/01/22 10:[address]: Casey Summers DEPT: IMMUNOHISTOCHEMISTRY RECD BY: Giovanna Canela ENTERED: 05/01/22 14:21 SP TYPE: IMMUNO OTHR DR: Dr. Ryan Leyva MD Tissues: A - Stomach, NOS D - Esophagus, NOS Procedures: H Pylori (initial) P53 (initial) KI-67 (add) PHYSICIAN & INSTITUTION [place] [id number] SPECIMEN INFORMATION: Tissue Source: A ? Gastric antrum, D ? Distal esophagus biopsy Clinical Info: Swallowing disorder, chronic diarrhea, abdominal pain, fatty liver Specimen Number: [id number] A & D CPT code: 67607 x2, 06052 METHODOLOGY: Deparaffinized sections of prefer/formalin-fixed tissue or PAP/DQ stained slides are incubated with monoclonal/polyclonal antibodies/oligonucleotide probes. Localization is made via biotin free immunoperoxidase method. Appropriate controls are performed and reacted as expected. Results on target cell population are indicated in the following table: RESULTS: ANTIBODY / CLONE RESULT Block A H Pylori (polyclonal) negative Block D P53 (DO-7) negative Ki-67 (30-9) positive, low These tests were developed and their performance characteristics determined by [facility]. They may not have been cleared or approved by the U.S. Food and Drug Administration. The FDA has determined that such clearance or approval is not necessary. The above immunohistochemical/dualISH markers are ordered and reviewed by the Pathologist. INTERPRETATION: A. Gastric antrum, biopsy: Negative for Helicobacter pylori organisms. D. Distal esophagus, biopsy: No evidence of dysplasia. AM:sebastian 05/03/2022
--- NOTE | 2022-05-01 11:25 | OP.EGD_ITS ---
Patient Name: Valeria Ahmadi Procedure Date: 05/01/2022 10:40 AM Date of : 1960 Age: 61 Procedure: Upper GI endoscopy Indications: Dysphagia Providers: Casey Summers DO Medicines: Monitored Anesthesia Care Patient Profile: This is a 61 year old female. Refer to note in patient chart for documentation of history and physical. Patient has symptoms of dysphagia with solids. Complications: No immediate complications. Procedure: Pre-Anesthesia Assessment: - Prior to the procedure, a History and Physical was performed, and patient medications and allergies were reviewed. The risks and benefits of the procedure and the sedation options and risks were discussed with the patient. All questions were answered and informed consent was obtained. Patient identification and proposed procedure were verified by the physician in the pre-procedure area. Mental Status Examination: alert and oriented. Airway Examination: normal oropharyngeal airway and neck mobility. Respiratory Examination: clear to auscultation. CV Examination: normal. Prophylactic Antibiotics: The patient does not require prophylactic antibiotics. Prior Anticoagulants: The patient has taken no previous anticoagulant or antiplatelet agents. After reviewing the risks and benefits, the patient was deemed in satisfactory condition to undergo the procedure. The anesthesia plan was to use moderate sedation / analgesia (conscious sedation). Immediately prior to administration of medications, the patient was re-assessed for adequacy to receive sedatives. The heart rate, respiratory rate, oxygen saturations, blood pressure, adequacy of pulmonary ventilation, and response to care were monitored throughout the procedure. The physical status of the patient was re-assessed after the procedure. After obtaining informed consent, the endoscope was passed under direct vision. Throughout the procedure, the patient's blood pressure, pulse, and oxygen saturations were monitored continuously. The gastroscope was introduced through the mouth, and advanced to the second part of duodenum. The upper GI endoscopy was accomplished without difficulty. The patient tolerated the procedure well. Moderate Sedation: Moderate (conscious) sedation was personally administered by an anesthesia professional. The following parameters were monitored: oxygen saturation, heart rate, blood pressure, respiratory rate, EKG, adequacy of pulmonary ventilation, and response to care. Total physician intraservice time was 15 minutes. Scope In: 10:57:40 AM Scope Out: 11:12:56 AM Total Procedure Duration Time 0 hours 15 minutes 16 seconds Findings: A single area of ectopic gastric mucosa was found in the upper third of the esophagus, 20 cm from the incisors. The Z-line was irregular and was found 38 cm from the incisors. Biopsies were taken with a cold forceps for histology. Verification of patient identification for the specimen was done. Estimated blood loss was minimal. One benign-appearing, intrinsic stenosis was found 21 to 23 cm from the incisors. This stenosis was moderately severe and. The stenosis was traversed. A guidewire was placed and the scope was withdrawn. Dilation was performed with a Savary dilator with no resistance at 60 Fr. The dilation site was examined following endoscope reinsertion and showed moderate improvement in luminal narrowing. The ANTONIO capsule with delivery system was introduced through the mouth and advanced into the esophagus, such that the ANTONIO pH capsule was positioned 38 cm from the incisors, which was 6 cm proximal to the GE junction. Suction was applied to the well of the ANTONIO pH capsule to suck in the adjacent mucosa of the esophagus using the external vacuum pump set at a minimum vacuum pressure of 550 mmHg for 30 seconds. The ANTONIO pH capsule was then deployed by depressing the plunger on top of the handle to advance the locking pin into the mucosa, thereby attaching the capsule to the esophagus. The plunger was then rotated a quarter turn clockwise to release the capsule from the delivery system. The delivery system was then withdrawn. Endoscopy was utilized for probe placement and diagnostic evaluation. Five non-bleeding superficial gastric ulcers with no stigmata of bleeding were found in the gastric antrum. The largest lesion was 6 mm in largest dimension. Biopsies were taken with a cold forceps for histology. Verification of patient identification for the specimen was done. Estimated blood loss was minimal. Two non-bleeding linear gastric ulcers with no stigmata of bleeding were found in the cardia and at the incisura. The largest lesion was 6 mm in largest dimension. Biopsies were taken with a cold forceps for histology. Biopsies were taken with a cold forceps for histology. Verification of patient identification for the specimen was done. Estimated blood loss was minimal. The second portion of the duodenum was normal. Biopsies were taken with a cold forceps for histology. Verification of patient identification for the specimen was done. Estimated blood loss was minimal. Impression: - Ectopic gastric mucosa in the upper third of the esophagus. - Z-line irregular, 38 cm from the incisors. Biopsied. - Benign-appearing esophageal stenosis. Dilated. - Non-bleeding gastric ulcers with no stigmata of bleeding. Biopsied. - Non-bleeding gastric ulcers with no stigmata of bleeding. Biopsied. - Normal second portion of the duodenum. Biopsied. - The ANTONIO pH capsule was positioned 38 cm from the incisors, which was 6 cm proximal to the GE junction. Recommendation: - Discharge patient to home. - Full liquid diet. - Continue present medications. - Await pathology results. Procedure Code(s): --- Professional --- 00360, Esophagogastroduodenoscopy, flexible, transoral; with insertion of guide wire followed by passage of dilator(s) through esophagus over guide wire 41235, 59,51, Esophagogastroduodenoscopy, flexible, transoral; with biopsy, single or multiple CPT copyright 2017 [employer]. All rights reserved. The codes documented in this report are preliminary and upon composition stone applicator review may be revised to meet current compliance requirements. Casey Summers DO 05/01/2022 11:25:17 AM This report has been signed electronically. Number of Addenda: 1 Note Initiated On: 05/01/2022 10:40 AM Addendum Number: 1 Addendum Date: 09/03/2022 6:32:35 AM MAC was used as sedation for this procedure. Casey Summers DO 09/03/2022 6:32:39 AM This report has been signed electronically.
--- NOTE | 2022-05-01 11:25 | OP.CCLET_ITS ---
09/03/2022 Ryan Leyva MD [address] [place] [address] [place] [address] Re : Upper GI endoscopy procedure for Valeria Ahmadi Dear Dr. Leyva This procedure was performed on Sunday, May 01, 2022. My impressions and recommendations are as follows: Impressions : - Ectopic gastric mucosa in the upper third of the esophagus. - Z-line irregular, 38 cm from the incisors. Biopsied. - Benign-appearing esophageal stenosis. Dilated. - Non-bleeding gastric ulcers with no stigmata of bleeding. Biopsied. - Non-bleeding gastric ulcers with no stigmata of bleeding. Biopsied. - Normal second portion of the duodenum. Biopsied. - The ANTONIO pH capsule was positioned 38 cm from the incisors, which was 6 cm proximal to the GE junction. Recommendations : - Discharge patient to home. - Full liquid diet. - Continue present medications. - Await pathology results. My findings are described in the full procedure note, which is enclosed. If I can be of further assistance, please feel free to contact me at . Sincerely, Casey Summers DO 05/01/2022 11:25:17 AM This report has been signed electronically.
== END 2022-05-01 11:55 | disposition home or self-care (01) ==
LOC: EN 08:59 → AC 08:59
PROVIDERS: PCP Internal Medicine; Referring Provider Internal Medicine; Visit Provider Internal Medicine Gastroenterology
PROC: 0DJ08ZZ Inspection of Upper Intestinal Tract, Via Natural or Artificial Opening Endoscopic (ICD-10-PCS; CPT 43235; principal; 2022-05-01 09:55)
DX: K22.2 Esophageal obstruction (principal); M06.9 Rheumatoid arthritis, unspecified; E11.9 Type 2 diabetes mellitus without complications; K29.50 Unspecified chronic gastritis without bleeding; K21.00 Gastro-esophageal reflux disease with esophagitis, without bleeding; K22.70 Barrett's esophagus without dysplasia; F41.9 Anxiety disorder, unspecified; F32.A Depression, unspecified; M79.7 Fibromyalgia; M10.9 Gout, unspecified; E78.5 Hyperlipidemia, unspecified; I10 Essential (primary) hypertension; I34.1 Nonrheumatic mitral (valve) prolapse; M81.0 Age-related osteoporosis without current pathological fracture; E66.9 Obesity, unspecified; Z87.440 Personal history of urinary (tract) infections; K76.0 Fatty (change of) liver, not elsewhere classified; G47.00 Insomnia, unspecified; M19.90 Unspecified osteoarthritis, unspecified site; K25.9 Gastric ulcer, unspecified as acute or chronic, without hemorrhage or perforation; Z79.899 Other long term (current) drug therapy; Z79.82 Long term (current) use of aspirin; Z68.35 Body mass index [BMI] 35.0-35.9, adult; G25.81 Restless legs syndrome; Z90.49 Acquired absence of other specified parts of digestive tract; E87.6 Hypokalemia
CPT/HCPCS: 43248; 43239; 88305; 88341; 88342; J7120; C1769; J2405

== ENCOUNTER → 2022-05-20 | Outpatient (CLI) | payer MEDICAID, SELFPAY ==
[2022-05-20 17:40] LABS: Vitamin B12 263 pg/mL (211-911)
--- NOTE | 2022-05-22 10:04 | PCM.HP.BLA ---
History and Physical Date of Admission: 05/01/22 Study: 48-hour?Reese?pH capsule was placed on esophagus during EGD on 05/01/2022 ? Indications for?Reese?pH Study: Dysphagia, epigastric pain ? Study Findings?? ? 48-hour overview: Some reflux initially while upright ? Using data from the worst of the two days, acid exposure time is 3.5%.?Percent acid exposure time?is the single parameter which has been shown to best correlate with endoscopic damage. Normal is <4.4% on the worst day, therefore this result is?normal.? ? The?DeMeester Score?(normal is <14.72) on the worst of the two days is 11.7 which is?normal.?The DeMeester Score is a method of adding weights to six common pH measurement parameters, and presenting esophageal acid exposure data as a cumulative score.? ? Symptom Index (SI)?>50% is significant (it indicates that >50% of the observed symptoms were associated with reflux).? In this study, the SI is 0% which?not significant. ? Symptom Association Probability (SAP)?helps to determine if there is a true correlation between symptoms and reflux. SAP >95% indicates a likely correlation.? In this study, the SAP is 0% which?does not indicate a true correlation with heartburn (the SAP is a 81 .2% which does indicate a true correlation with chest pain).? ? Interpretation ? Normal
[2022-05-23 18:52] LABS: Gastrin, Serum 564 pg/mL (0-115)
== END | disposition home or self-care (01) ==
LOC: LAB 15:59
PROVIDERS: PCP Internal Medicine; Referring Provider Nurse Practitioner Adult Health; Visit Provider Nurse Practitioner Adult Health
DX: E16.4 Increased secretion of gastrin (principal)
CPT/HCPCS: 36415; 82607; 82746; 82941

== ENCOUNTER → 2022-05-31 | Outpatient (CLI) | payer MEDICAID, SELFPAY ==
--- NOTE | 2022-05-31 09:10 | NM_ITS ---
EXAM: NM GASTRIC EMPTYING SCAN CLINICAL INDICATION: elevated gastrin TECHNIQUE: Patient was fed 1 mCi Tc99m sulfur colloid in oatmeal. Images of the abdomen were obtained over a period of 60 minutes. Half time of gastric emptying and percent retention of radionuclide activity were calculated. This report was created using [employer] report generation technology. COMPARISON: None. FINDINGS: STOMACH: T1 half life of gastric activity noted at 42 minutes. Nearly 75% gastric emptying at 60 minutes. NM/Gastric Emptying Study IMPRESSION: Normal gastric emptying. Electronically Signed: Jose Rosales MD at 12:29 EDT ,
== END | disposition home or self-care (01) ==
LOC: NM 09:08
PROVIDERS: PCP Internal Medicine; Referring Provider Nurse Practitioner Adult Health; Visit Provider Nurse Practitioner Adult Health
DX: E16.4 Increased secretion of gastrin (principal)
CPT/HCPCS: 78264; A9541

== ENCOUNTER → 2022-07-03 | Outpatient (CLI) | payer MEDICAID, SELFPAY ==
--- NOTE | 2022-07-03 12:55 | BI_ITS ---
MAMMOGRAPHY - BILATERAL SCREENING 3-D TOMOSYNTHESIS REASON FOR EXAM: Female, 62 years old. Bilateral screening mammogram. PERTINENT HISTORY: History of breast cancer in maternal grandmother, age not identified. History of right needle biopsy in 2019. TECHNIQUE: 2-D mammograms and 3-D Tomosynthesis of the breast (s) were performed. CAD was performed. COMPARISON: 05/18/2021, 12/10/2018. FINDINGS: The breast composition is composed of scattered fibroglandular density. Stable benign calcifications bilaterally. Normal lymph nodes unchanged. No dense spiculated masses or suspicious microcalcifications are identified. No architectural distortion is identified. There is no skin thickening or retraction. BI/SCRN MAMM (CAD)W/LIBERTY BILAT IMPRESSION: No interval change and no mammographic signs of malignancy. Routine yearly mammograms recommended. ASSESSMENT CATEGORY: BIRADS Category 2: Benign. A letter regarding these results will be sent to the patient by the facility within 30 days. FOLLOW UP RECOMMENDATION: Yearly follow up mammogram recommended. (A) Approximately 10% of breast cancers are not detected by mammography. A normal mammogram should not delay biopsy of a clinically suspicious abnormality. Electronically Signed: Joaquin Montes MD at 15:10 EDT ,
== END | disposition home or self-care (01) ==
LOC: OPBI 12:54
PROVIDERS: PCP Internal Medicine; Visit Provider Internal Medicine
DX: Z12.31 Encounter for screening mammogram for malignant neoplasm of breast (principal)
CPT/HCPCS: 77063; 77067

== ENCOUNTER → 2022-07-16 | Outpatient (CLI) | payer MEDICAID, SELFPAY ==
[2022-07-19 11:39] LABS: Gastrin, Serum 871 pg/mL (0-115)
== END | disposition home or self-care (01) ==
LOC: LAB 14:51
PROVIDERS: PCP Internal Medicine; Visit Provider Nurse Practitioner Adult Health
DX: E16.4 Increased secretion of gastrin (principal)
CPT/HCPCS: 82941

== ENCOUNTER → 2022-08-13 | Outpatient (CLI) | payer MEDICAID, SELFPAY ==
--- NOTE | 2022-08-13 08:12 | NM_ITS ---
CLINICAL: 62 year old female with apparent rising serum gastrin level. OCTREOTIDE-SOMATOSTATIN RECEPTOR SCINTIGRAPHY COMPARISON: None available FINDINGS: Following the intravenous administration of 7.0 mCi of In 111 Octreotide, whole body, spot planar projections and emission computed tomographic reconstructions of the abdomen and pelvis obtained at 4 and 24 hours post radiopharmaceutical administration reveal: 1. There is no scintigraphic evidence of abnormal increased radiotracer concentration on review of the provided data sets. 2. Physiologic uptake is notable in the hepatic and splenic parenchyma, visualized intestinal tract, bilateral kidneys and urinary bladder. NM/Tumor Localization SPECT IMPRESSION: 1. NEGATIVE In-111 OCTREOTIDE SOMATOSTATIN RECEPTOR SCINTIGRAPHY 2. There is no scintigraphic evidence of somatostatin receptor avid viable neoplasia on the current examination. Correlation with Cu 64 or Ga 68 DOTATATE PET-CT may be of benefit for further evaluation. Electronically Signed: Ric Riley, at 8:05 EDT ,
== END | disposition home or self-care (01) ==
LOC: NM 08:09
PROVIDERS: PCP Internal Medicine; Referring Provider Nurse Practitioner Adult Health; Visit Provider Nurse Practitioner Adult Health
DX: E16.4 Increased secretion of gastrin (principal); K25.9 Gastric ulcer, unspecified as acute or chronic, without hemorrhage or perforation; K22.70 Barrett's esophagus without dysplasia
CPT/HCPCS: 78803; 78804; A9572

== ENCOUNTER 2022-10-11 11:00 | Outpatient (RCR) | payer MEDICAID, SELFPAY ==
--- NOTE | 2022-09-06 14:30 | HP.PTEVAL_ITS ---
Patient's Visit Information NATALIA MARQUEZ is a 62 year old F referred to Physical Therapy by KINSEY Cabral with a diagnosis of CERVCIAL DDD, STENOSIS, RADICULITIS, SPONDYLOSIS AND FACET ARTHROPATHY. Date of Evaluation: 09/06/22 Physical Therapist: Gisele Acharya, PT, Cert MDT - Visit Plan Frequency: 2-3x /Week Duration: 4-6 Weeks Plan: *OSTEOPOROSIS*. US X 6-8. STM. GENTLE EX. POSTURE CORRECTION/STRENGTHENING, INSTRUCTION IN APPROPRIATE BODY MECHANICS AND ACTIVITY MODIFICATIONS. JOELLE UE ROM, STRETCHING AND STRENGTHENING. HEP INSTRUCTION. - Subjective Work/Leisure: UNEMPLOYEED. Disability: NO. Present symptoms: CENTRAL AND JOELLE NECK PAIN. JOELLE SHLD BLADE PAIN. PATIENT DENIES JOELLE UE PAIN, NUMBNESS AND TINGLING. CONSTANT HEADACHES DAILY. NECK CLICKING AND GRINDING. Present since: ABOUT 5 YEARS AGO. Pain Scale: Worst - 8/10 Least - 4/10. Currently: 4/10. Commenced as a result of: NO APPARENT REASON. Symptoms at onset: HEAD FELT REALLY HEAVY ON SHLD'S. Worse: READING, PROLONGED WATCHING TV, STRESS, DR GALVEZ. Better: HEAT, MASSAGER, HOT WATER FROM SHOWER. Disturbed sleep: YES. Previous history/Previous treatment: NEURO CONSULT. PAIN MGMT - 1 ZEV EVERY 2 MONTHS FOR 4 YEARS - COUPLE WKS OF TEMPRORARY RELIEF. NO NECK SURGERY. NECK PT SEVERAL YEARS AGO. APPROX 2020 CHIROPACTIC X APPROX 4 VISITS WITH INCREASED PAIN PER PATIENT. Dizziness: YES. Tinnitis: NO. Nausea: NO. Shortness of Breath: YES - PATIENT RELATES IT TO REFLUX AND barrettes esophagus. Difficulty Swollowing: YES - UNDER THE CARE OF DR. MERAZ. Gait: NO RECENT CHANGE. PATIENT REPORTS SHE HAS A HISTROY OF FALLS ONE TO TWO TIMES A YEAR. Accidents: NO. Unexplained weight loss: NO. Imaging: NONE RECENT. PATIENT REPORTS IT HAS BEEN A FEW YEARS. STATES SHE ISN'T SURE IF SHE HAS HAD A NECK MRI BUT NEW MRI RECOMMENDED. PMH/Recent major surgery: R TKR 2019, R SHLD REPLACEMENT ABOUT 5 YEARS AGO, L FOOT SX'S. MITRAL VALVE PROLAPSE, OSTEOPOROSIS. CHRONIC MID AND LOW BACK PAIN BUT NOT SEVERE NECK. REPORTS ONE OF THE vertebrae's IN HER MIDDLE BACK WAS CRACKED by a chiropractor AND HAD TO BE REPAIRED. - Objective Sitting Posture/Standing Posture: FH. RSH'S. NO TORTICOLLIS. Active Correction of posture: BETTER. Other Observations: INDEP GAIT AND TRANSFERS. Sensory deficit: JOELLE UE LIGHT TOUCH SENSATION GROSSLY INTACT AND SYMMETRIAL. ROM deficit: JOELLE UE'S WFL. Motor deficit: JOELLE UE'S GROSSLY 4/5 WITH MMT'ING. Dural Signs: NEGATIVE JOELLE UE'S. Cervical Mvmt Loss: Flex: NIL. Pro: NIL. Ext: NICOLETTE. Ret: NICOLETTE. RSB: MOD. LSB: MOD. R Rot: MOD. L Rot: MOD. PATIENT C/O INCREASED PAIN WITH CERVICAL ROM TESTING ALL PLANES. Postural strength: POOR. Palpation: NO ACUTE UPPER THORACIC, NECK, OCCIPUT OR SHOULDER TENDERNESS. INCREASED MUSCLE TONE THROUGHOUT WITH MULTIPLE TRIGGER POINTS. TREATMENT: NEUROMUSCULAR REEDUCATION - RETRAINING OF MVMT AND POSTURE FOR SITTING, LYING AND STANDING ACTIVITIES. - Balance/Special Test Scores Oswestry Neck Score: 24 - Goals Goal 1:: DECREASE C/O HEAD, NECK AND UE SX'S. Goal Time Frame: 4-6 Weeks Goal 2:: IMPROVE PERSONAL CARE, LIFTING, READING, SLEEP, DRIVING, HOMEMAKING AND RECREATIONAL FUNCTION Goal Time Frame: 4-6 Weeks Goal 3:: INSTRUCT IN PROPHYLAXIS Goal Time Frame: 4-6 Weeks - Anticipated Interventions Patient/Client Instruction: Educate patient on: Condition, Plan of Care For the Purpose of:: To improve self management Therapeutic Exercise to Include: Strength training, Body mechanics, Postural tr aining, Flexibilty training, Neuromotor development, Scapular Strength/Stabilization For the Purpose of:: To decrease pain, To increase ROM, To improve muscle performance and motor function, To increase tolerance to activity/condition/position, To improve ability of physical actions for home/community/work/leisure Manual Therapy Techniques to Include: Soft tissue mobilization For the Purpose of:: To decrease pain, To improve nutrient delivery to tissue Thermo therapy (hot pack): Yes Ultrasound (thermal/non thermal): Yes For the Purpose of:: To decrease pain, To improve nutrient delivery to tissue Thank you for the opportunity to evaluate your patient. For Medicare and Medicare HMO plans, please review the plan of care and approve it. It will need to be FAXED BACK to us at [phone] for Medicare purposes. For Medicare only, by signing this I certify the plan of care. Please let me know if there are questions or concerns regarding this plan of care. Physician Signature: Date:
--- NOTE | 2022-10-11 11:24 | HP.PTDCSUM ---
It has been my pleasure to treat NATALIA MARQUEZ referred by KINSEY Cabral, with the diagnosis of CERVCIAL DDD, STENOSIS, RADICULITIS, SPONDYLOSIS AND FACET ARTHROPATHY for a total of 9 visit(s). Discharge Date: Please see the following information for a summary of their discharge status. Subjective: PATIENT REPORTS SHE IS NOT GETTING BETTER. HAD A FOLLOW UP WITH CHEVY PEREZ CNP 10/09/22 AND THE PLAN IS TO GET AN MRI. NECK Pain Intensity (Out of 10): 5 HEADACHE Pain Intensity (Out of 10): 5 % Improvement: 0 Objective/Function: PATIENT WAS SEEN TODAY FOR RE-ASSESSMENT OF PROGRESS TOWARD THE SET PT GOALS AND THE NEED FOR FURTHER PHYSICAL THERAPY VS READINESS FOR DISCHARGE. PATIENT IS NOT IMPROVING. PHYSICIAN RE-ASSESSMENT RECOMMENDED AND PATIENT AGREEABLE. OVER-ALL, THERE ARE NO SIGNIFICANT CHANGES OBJECTIVELY SINCE INTIAL EVAL. UPON EXAM TODAY: Sensory deficit: JOELLE UE LIGHT TOUCH SENSATION GROSSLY INTACT AND SYMMETRIAL. ROM deficit: JOELLE UE'S WFL. Motor deficit: JOELLE UE'S GROSSLY 4/5 WITH MMT'ING. Dural Signs: NEGATIVE JOELLE UE'S. Cervical Mvmt Loss: Flex: NIL. Pro: NIL. Ext: NICOLETTE. Ret: NICOLETTE. RSB: MOD. LSB: MOD. R Rot: MOD. L Rot: MOD. PATIENT C/O INCREASED PAIN WITH CERVICAL ROM TESTING ALL PLANES. Postural strength: POOR. Palpation: NO ACUTE UPPER THORACIC, NECK, OCCIPUT OR SHOULDER TENDERNESS. INCREASED MUSCLE TONE THROUGHOUT WITH MULTIPLE TRIGGER POINTS. Goal 1:: DECREASE C/O HEAD, NECK AND UE SX'S. Goal Progress: Not Progressing Goal 2:: IMPROVE PERSONAL CARE, LIFTING, READING, SLEEP, DRIVING, HOMEMAKING AND RECREATIONAL FUNCTION Goal Progress: Not Progressing Goal 3:: INSTRUCT IN PROPHYLAXIS Goal Progress: Not Progressing Plan: *OSTEOPOROSIS*. US X 6-8. STM. GENTLE EX. POSTURE CORRECTION/STRENGTHENING, INSTRUCTION IN APPROPRIATE BODY MECHANICS AND ACTIVITY MODIFICATIONS. JOELLE UE ROM, STRETCHING AND STRENGTHENING. HEP INSTRUCTION. If there are questions or concerns regarding this patient's physical therapy, please feel free to call me at [phone]. Thank you for the referral of this patient. Sincerely, Gisele Acharya, PT, Cert MDT Balance/Gait/Functional tests - Balance/Special Test Scores Oswestry Neck Score: 26
== END 2022-10-11 13:34 | disposition home or self-care (01) ==
LOC: PT 11:00
PROVIDERS: PCP Internal Medicine; Referring Provider Nurse Practitioner Family; Visit Provider Nurse Practitioner Family
DX: M50.30 Other cervical disc degeneration, unspecified cervical region (principal); M54.12 Radiculopathy, cervical region; M48.02 Spinal stenosis, cervical region; M47.812 Spondylosis without myelopathy or radiculopathy, cervical region
CPT/HCPCS: 97035; 97112; 97140; 97162; 97164; 97530

== ENCOUNTER 2022-10-22 13:15 | Day surgery (SDC) | payer MEDICAID, SELFPAY ==
[2022-10-22] MEDS: Lactated Ringers 1,000 ML 15 ML IV (13:35)
[2022-10-22 13:50] VITALS: BP 126/74; PULSE 78; RESP 16; TEMP 36.9; O2SAT 95; BMI 34.1
--- NOTE | 2022-10-22 14:25 | HP.PCM_ITS ---
History and Physical Date of Admission: 10/22/22 NATALIA MARQUEZ, is a 62 F who presents to the office today for 2-month follow-up for dysphagia, elevated gastrin, abnormal manometry, Orthman's, gastric ulcers. Because of gastric ulcers and elevated gastrin there is concern for Madyson- Monae syndrome or neuroendocrine tumor. We have ordered a tumor localization SPECT study (octreotide scan) to evaluate for neuroendocrine tumor however insurance has not yet okayed this study. Elevated gastrin -- 04/08/22 gastrin 415 (0-115). 05/20/22 gastrin 564, vitamin B12 and folate were normal. 05/31/22 gastric emptying study is normal. Gastric ulcers -- We are holding her aspirin 81 mg daily because of her gastric ulcers. No longer taking meloxicam. Epigastric pain -- Sucralfate helps with epigastric pain. She takes PPI twice a day. Gastric emptying study normal. Reese pH study normal; bile reflux may be the issue, she is status postcholecystectomy.. Dysphagia -- Had trouble swallowing bread last night. Esophageal stenosis dilated 05/01/22 but the didn't help dysphagia. She was treated with sucralfate and double dose of PPI prior to EGD; remains on those meds; sucralfate helps epigastric pain. Ectopic gastric mucosa in upper esophagus. 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 Esophageal biopsy positive for Rothman's. Diarrhea -- Taking colestipol every other day, that helps to manage the diarrhea. NAFLD --plan is to treat this once her more pressing concerns are managed. Liver stiffness 10.5 kPa compatible with F2 to F3. Natalia established with our practice on 04/08/2022 with complaints of difficulty swallowing and diarrhea. Difficulty swallowing began one yr ago, progressively getting worse. She had modified barium swallow with speech therapist in January 2022 which showed retention throughout esophagus, slow emptying, and retrograde flow of bolus. She was already on BID pantoprazole 40 mg--not helpful for the swallowing issue. No relief of dysphagia with sucralfate, but it does help with epigastric pain. Has been getting sharp epigastric pain, occurs when eating, better if she drinks lots of water, this started several years ago. Different from burning epigastric pain that she also gets. Diarrhea x many years, she eats and then has to run to the bathroom, it's urgent, can have accidents when can't get there in time. Usually watery with some formed stool in it, often bright yellow. Never any blood, denies melena and hematochezia. Rare formed stool. Comorbidities include: anxiety, DDD, depression, fibromyalgia, GERD, gout, dyslipidemia, hypersomnolence, HTN, MVP, obesity, osteoporosis, recurrent UTI, hypokalemia, SI joint pain, fatty liver, insomnia. Hx RA, saw Dr Padilla but insurance changed so she then went to [facility]--they told her she didn't have RA. Amitriptyline is for pain. 05/01/2022 EGD Impression: ?- Ectopic gastric mucosa in the upper third of ? the esophagus. ? - Z-line irregular, 38 cm from the incisors. ? Biopsied. ? - Benign-appearing esophageal stenosis. Dilated. ? - Non-bleeding gastric ulcers with no stigmata ? of bleeding. Biopsied. ? - Non-bleeding gastric ulcers with no stigmata ? of bleeding. Biopsied. ? - Normal second portion of the duodenum. ? Biopsied. ? - The [employer] pH capsule was positioned 38 cm ? from the incisors, which was 6 cm proximal to ? the GE junction. MICROSCOPIC DIAGNOSIS A.? Gastric antrum, biopsy: ?Chronic active gastritis with focal ulceration.? Negative H. pylori ?See comment. B.? Incisor region, biopsy: ?Chronic active gastritis. C.? Gastric fundic ulcer, biopsy: ?Chronic active gastritis. D.? Distal esophagus, biopsy: ?Fragments of gastroesophageal mucosa with mild chronic inflammation. ?Focal changes of reflux. ?Goblet cell metaplasia consistent with Rothman?s esophagus. ?No evidence of dysplasia. ?See comment. Block D P53? (DO-7) ? negative Ki-67? (30-9)? positive, low E.? Esophagus, random biopsy: ?No pathologic change. ROS Const Constitutional: Positive for headache(s); No fatigue ENT ENT: Positive for headache(s) and difficulty swallowing Gastro GI: Positive for abdominal pain, diarrhea, heartburn, difficulty swallowing and nausea/dyspepsia; No belching, bloating, change in bowel habits, change in stool character, coffee ground emesis, constipation, cramping, feeling full early, excessive flatus, incontinent of stools, Vomiting blood/hematemesis, Blood in stool, loose stools, Black,tarry stools, pain with swallowing, vomiting or other Musc Musculoskeletal: Positive for abnormal gait, joint pain, back pain, joint sw elling, stiffness, restless legs and leg pain at night Skin Skin: No yellowing of the eye or itchy eyes Neuro Neurology: Positive for abnormal gait, headache(s) and restless legs Psych Psychiatric: Positive for anxiety and Positive for depression Endo Endocrine: No fatigue Aller/Imm Allergy/Immunologic: No itchy eyes Woo/Lymp Hematologic/Lymphatic: No easy bleeding or easy bruising Exam Const General: cooperative, comfortable and no acute distress Nutritional Appearance: obese Orientation: alert, awake and oriented x3 HENMT Head: normal to inspection Eyes General: appearance normal, both eyes and all related structures Resp Effort & Inspection: normal respiratory effort Skin General: no jaundice Neuro Gait: normal gait Psych Mood: euthymic mood Affect: normal affect Quality Reporting Tobacco Screening ([facility] 138) Smoking Status: Never smoker Assessment and Plan Assessment and Plan (1) Elevated gastrin level: ?Status:?Acute ?Plan: 62-year-old female with hypergastrinemia, multiple gastric ulcers, epigastric pain, GERD, diarrhea, dysphagia.? We will recheck her gastrin level today.? We will begin work on getting the octreotide scan approved, concern for neuroendocrine tumor with rising gastrin level.? 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 She will continue P PI therapy and sucralfate.? Her esophageal manometry was abnormal, could consider treating with Botox however that might make her reflux worse.? She is already on amitriptyline.? Continue colestipol since it helps with diarrhea however stools are still not normal, that can be related to the elevated gastrin.? We will need to treat NAFLD, likely with vitamin E and ursodiol, however we are focusing on more pressing issues at this time. (2) Gastric ulcer: ?Status:?Acute ?Plan: See above She will eventually need repeat EGD to ensure gastric ulcers have resolved (3) GERD (gastroesophageal reflux disease): ?Status:?Chronic ?Plan: See above (4) Swallowing disorder: ?Status:?Chronic ?Plan: See above ? ? ? Orders: Orders Gastrin, Serum Today E16.4 - Increased secretion of gastrin ? I have examined the patient and the H&P has been reviewed. There are no clinical changes since date of exam.
--- NOTE | 2022-10-22 14:30 | IMM_PTH ---
PATIENT: NATALIA MARQUEZ LOC: EN U#:[id number] AGE/SX: 62/F ROOM: RE10/22/[address]: Dr. Casey Summers DO : 1960 BED: DIS: 10/22/2022 SPEC #: [id number] RECD: 10/23/22 10:01 STATUS: DEMIAN REQ #: [id number] MARK: 10/22/22 14:[address]: Casey Summers DEPT: IMMUNOHISTOCHEMISTRY RECD BY: Giovanna Canela ENTERED: 10/23/22 10:02 SP TYPE: IMMUNO OTHR DR: Dr. Ryan Leyva MD Tissues: A - Stomach, NOS Procedures: H Pylori (initial) PHYSICIAN & INSTITUTION [place] [id number] SPECIMEN INFORMATION: Tissue Source: A ? Gastric body biopsy Clinical Info: Elevated gastrin level, gastric ulcer, GERD, swallowing disorder Specimen Number: [id number] CPT code: 94764 METHODOLOGY: Deparaffinized sections of prefer/formalin-fixed tissue or PAP/DQ stained slides are incubated with monoclonal/polyclonal antibodies/oligonucleotide probes. Localization is made via biotin free immunoperoxidase method. Appropriate controls are performed and reacted as expected. Results on target cell population are indicated in the following table: RESULTS: ANTIBODY / CLONE RESULT Block A H Pylori (polyclonal) negative These tests were developed and their performance characteristics determined by [facility]. They may not have been cleared or approved by the U.S. Food and Drug Administration. The FDA has determined that such clearance or approval is not necessary. The above immunohistochemical/dualISH markers are ordered and reviewed by the Pathologist. INTERPRETATION: A. Gastric body, biopsy: Negative for Helicobacter pylori organisms. VICTORIANO:sebastian 10/25/2022
--- NOTE | 2022-10-22 14:30 | EGD_PTH ---
PATIENT: NATALIA MARQUEZ LOC: EN U#:[id number] AGE/SX: 62/F ROOM: RE10/22/[address]: Dr. Casey Summers DO : 1960 BED: DIS: 10/22/2022 SPEC #: [id number] RECD: 10/22/22 15:47 STATUS: DEMIAN REYaima #: [id number] MARK: 10/22/22 14:[address]: Casey Summers DEPT: SURGICAL PATHOLOGY RECD BY: Crystal Granda ENTERED: 10/23/22 08:54 SP TYPE: EGD BIOPSY BRADLEY DR: Dr. Ryan Leyva MD Tissues: A - Gastric mucous membrane B - Stomach, NOS C - Gastric mucous membrane Procedures: Surgery Specimen Level IV HEADER OPERATION: EGD with biopsy, not snare (MAC) with Botox PRE-OP DIAGNOSIS: Elevated gastric level, gastric ulcer, GERD, swallowing disorder TISSUE SUBMITTED: A - Gastric body biopsy, B - Lesser curvature ulcer, C - Gastric antrum polyp biopsy MICROSCOPIC DIAGNOSIS A. Gastric body, biopsy: Mild gastritis. See microscopic description and comment. B. Lesser curvature ulcer, biopsy: Mild gastritis. See microscopic description. C. Gastric antrum polyp, biopsy: Consistent with fragments of hyperplastic/inflammatory polyp. SJ:rg 10/25/2022 COMMENT A. The results of immunohistochemistry for Helicobacter pylori will be reported separately ([id number]). MICROSCOPIC DESCRIPTION Slides are reviewed. A & B. The specimen shows fragments of gastric mucosa with chronic inflammatory cell infiltrates in the lamina propria consisting of lymphocytes and plasma cells, consistent with mild chronic gastritis. GROSS DESCRIPTION A - Received in fixative is one container labeled with the patient's name and designated gastric body biopsy. The specimen consists of one irregular fragment of light huizar soft tissue that measures 0.3 x 0.3 x 0.1 cm. The specimen is totally submitted in one cassette. B - Received in fixative is one container labeled with the patient's name and designated lesser curvature ulcer. The specimen consists of multiple irregular fragments of light huizar soft tissue that in aggregate measure 1 x 0.5 x 0.1 cm. The specimen is totally submitted in one cassette. C - Received in fixative is one container labeled with the patient's name and designated gastric antrum polyp biopsy. The specimen consists of multiple irregular fragments of light huizar soft tissue that in aggregate measure 2 x 0.5 x 0.2 cm. The specimen is totally submitted in one cassette. / SJ:rg 10/23/2022 TC:3 CPT: 33797 x3
[2022-10-22] MEDS: 0.9% Normal Saline (Pres. free 10 ML Vial (14:52)
[2022-10-22] MEDS: Botulinum Toxin A 100 Units Vial 200 UNITS IM (14:52)
[2022-10-22 15:05] VITALS: BP 111/76; BP 126/74; PULSE 83; RESP 16; TEMP 36.6; O2SAT 99
[2022-10-22 15:10] VITALS: BP 126/74; BP 97/66; PULSE 78; RESP 16; O2SAT 93
--- NOTE | 2022-10-22 15:12 | OP.EGD_ITS ---
Patient Name: Valeria Ahmadi Procedure Date: 10/22/2022 2:22 PM Date of : 1960 Age: 62 Procedure: Upper GI endoscopy Indications: Epigastric abdominal pain, Dysphagia Providers: Casey Summers DO Referring MD: Ryan Leyva MD Medicines: Monitored Anesthesia Care Patient Profile: This is a 62 year old female. Refer to note in patient chart for documentation of history and physical. Patient has symptoms of chronic epigastric abdominal pain and dysphagia with both liquids and solids. Complications: No immediate complications. Procedure: Pre-Anesthesia Assessment: - Prior to the procedure, a History and Physical was performed, and patient medications and allergies were reviewed. The patient is competent. The risks and benefits of the procedure and the sedation options and risks were discussed with the patient. All questions were answered and informed consent was obtained. Patient identification and proposed procedure were verified by the physician in the pre-procedure area. Mental Status Examination: alert and oriented. Airway Examination: normal oropharyngeal airway and neck mobility. Respiratory Examination: clear to auscultation. Prophylactic Antibiotics: The patient does not require prophylactic antibiotics. Prior Anticoagulants: The patient has taken no previous anticoagulant or antiplatelet agents. ASA Grade Assessment: II - A patient with mild systemic disease. After reviewing the risks and benefits, the patient was deemed in satisfactory condition to undergo the procedure. The anesthesia plan was to use monitored anesthesia care (MAC). Immediately prior to administration of medications, the patient was re-assessed for adequacy to receive sedatives. The heart rate, respiratory rate, oxygen saturations, blood pressure, adequacy of pulmonary ventilation, and response to care were monitored throughout the procedure. The physical status of the patient was re-assessed after the procedure. After obtaining informed consent, the endoscope was passed under direct vision. Throughout the procedure, the patient's blood pressure, pulse, and oxygen saturations were monitored continuously. The gastroscope was introduced through the mouth, and advanced to the second part of duodenum. The upper GI endoscopy was accomplished with ease. The patient tolerated the procedure well. Scope In: 2:39:45 PM Scope Out: 2:58:26 PM Total Procedure Duration Time 0 hours 18 minutes 41 seconds Findings: Abnormal motility was noted in the lower third of the esophagus. The cricopharyngeus was abnormal. There is spasticity of the esophageal body. The distal esophagus/lower esophageal sphincter is patulous. Tertiary peristaltic waves are noted. Area was successfully injected with 100 units botulinum toxin. A moderate Schatzki ring was found in the upper third of the esophagus. A guidewire was placed and the scope was withdrawn. Dilation was performed with a Savary dilator with no resistance at 45 Fr. The dilation site was examined and showed mild improvement in luminal narrowing. Estimated blood loss was minimal. One non-bleeding cratered gastric ulcer with no stigmata of bleeding was found on the lesser curvature of the stomach. The lesion was 4 mm in largest dimension. Biopsies were taken with a cold forceps for histology. Verification of patient identification for the specimen was done. Estimated blood loss was minimal. Patchy mild inflammation characterized by erythema was found in the gastric body. Biopsies were taken with a cold forceps for histology. Verification of patient identification for the specimen was done. Estimated blood loss was minimal. Three 5 mm sessile polyps with no bleeding and no stigmata of recent bleeding were found in the gastric antrum. The polyp was removed with a hot snare. Resection and retrieval were complete. Verification of patient identification for the specimen was done. Estimated blood loss was minimal. The second portion of the duodenum was normal. Impression: - Abnormal esophageal motility, established presbyesophagus. Injected with botulinum toxin. - Moderate Schatzki ring. Dilated. - Non-bleeding gastric ulcer with no stigmata of bleeding. Biopsied. - Gastritis. Biopsied. - Three gastric polyps. Resected and retrieved. - Normal second portion of the duodenum. Recommendation: - Discharge patient to home. - Resume previous diet. - Continue present medications. - Await pathology results. - Repeat upper endoscopy for surveillance based on pathology results. - Return to GI office. Procedure Code(s): --- Professional --- 69916, Esophagogastroduodenoscopy, flexible, transoral; with removal of tumor(s), polyp(s), or other lesion(s) by snare technique 04967, Esophagogastroduodenoscopy, flexible, transoral; with insertion of guide wire followed by passage of dilator(s) through esophagus over guide wire 86093, 59, Esophagogastroduodenoscopy, flexible, transoral; with directed submucosal injection(s), any substance 10535, 59,51, Esophagogastroduodenoscopy, flexible, transoral; with biopsy, single or multiple CPT copyright 2017 [employer]. All rights reserved. The codes documented in this report are preliminary and upon autoglazier review may be revised to meet current compliance requirements. Casey Summers DO 10/22/2022 3:12:06 PM This report has been signed electronically. Number of Addenda: 0 Note Initiated On: 10/22/2022 2:22 PM
--- NOTE | 2022-10-22 15:13 | OP.CCLET_ITS ---
10/22/2022 Ryan Leyva MD [address] [place] [address] [place] [address] Re : Upper GI endoscopy procedure for Valeria Ahmadi Dear Dr. Leyva This procedure was performed on Saturday, October 22, 2022. My impressions and recommendations are as follows: Impressions : - Abnormal esophageal motility, established presbyesophagus. Injected with botulinum toxin. - Moderate Schatzki ring. Dilated. - Non-bleeding gastric ulcer with no stigmata of bleeding. Biopsied. - Gastritis. Biopsied. - Three gastric polyps. Resected and retrieved. - Normal second portion of the duodenum. Recommendations : - Discharge patient to home. - Resume previous diet. - Continue present medications. - Await pathology results. - Repeat upper endoscopy for surveillance based on pathology results. - Return to GI office. My findings are described in the full procedure note, which is enclosed. If I can be of further assistance, please feel free to contact me at . Sincerely, Casey Summers, 10/22/2022 3:12:06 PM This report has been signed electronically.
[2022-10-22 15:15] VITALS: BP 103/77; BP 126/74; PULSE 75; RESP 16; O2SAT 98
[2022-10-22 15:20] VITALS: BP 102/77; BP 126/74; PULSE 74; RESP 16; TEMP 36.6; O2SAT 100
[2022-10-22 15:36] VITALS: BP 126/74
== END 2022-10-22 15:47 | disposition home or self-care (01) ==
LOC: EN 13:16 → AC 13:17
PROVIDERS: PCP Internal Medicine; Referring Provider Internal Medicine; Visit Provider Internal Medicine Gastroenterology
PROC: 0DJ08ZZ Inspection of Upper Intestinal Tract, Via Natural or Artificial Opening Endoscopic (ICD-10-PCS; CPT 43235; principal; 2022-10-22 14:25)
DX: K31.89 Other diseases of stomach and duodenum (principal); K22.2 Esophageal obstruction; K29.50 Unspecified chronic gastritis without bleeding; K22.89 Other specified disease of esophagus; K31.7 Polyp of stomach and duodenum; G89.29 Other chronic pain; M54.12 Radiculopathy, cervical region; M51.37 Other intervertebral disc degeneration, lumbosacral region; I10 Essential (primary) hypertension; K76.0 Fatty (change of) liver, not elsewhere classified; M99.01 Segmental and somatic dysfunction of cervical region; M99.03 Segmental and somatic dysfunction of lumbar region; M99.05 Segmental and somatic dysfunction of pelvic region; M99.02 Segmental and somatic dysfunction of thoracic region; Z79.899 Other long term (current) drug therapy
CPT/HCPCS: 43236; 43239; 43248; 43251; 88305; 88342; J7120; J0585; J2405; J3490

== ENCOUNTER 2022-11-05 14:17 | Outpatient (CLI) | payer MEDICAID, SELFPAY ==
[2022-11-05 15:09] LABS: Absolute Lymphocyte Count 3.87 X10^3/uL (0.83-4.51); Absolute Neutrophil Count 4.9 X10^3/uL (2.0-7.7); Basophil# 0.09 X10^3/uL; Basophil% 0.9 % (0-1); Eosinophil# 0.19 X10^3/uL; Eosinophils% 1.9 % (0-5); Hemoglobin 15.1 g/dL (12.0-15.0); Lymphocyte # 3.87 X10^3/ul (0.83-4.51); Lymphocyte % 39.4 % (19-41); Mean Corp Hgb Conc 32.8 g/dL (32-36); Mean Corpuscular Hgb 30.6 pg (27.0-32.0); Mean Corpuscular Volume 93.1 fL (81-99); Mean Platelet Vol. 9.5 fl (6.2-12.0); Monocyte# 0.79 X10^3/uL; NRBC Flagged by Analyzer 0 % (0-5); Neutrophil # 4.86 X10^3/uL (2.7-7.7); Neutrophil % 49.6 % (47-70); Platelet Count 320 K/mm3 (150-450); RBC Distribution Width CV 12.5 % (11.6-14.6); Red Blood Count 4.94 M/mm3 (4.2-5.4); White Blood Count 9.8 K/mm3 (4.4-11.0)
[2022-11-05 15:42] LABS: ALB/GLOB Ratio 0.9 RATIO (0.9-2.4); AST(SGOT) 42 U/L (15-37); Alanine Aminotransfer ALT/SGPT 43 U/L (13-56); Albumin, Serum 3.7 g/dL (3.2-5.0); Alkaline Phosphatase 63 U/L (45-117); Amylase 34 U/L (25-115); Anion Gap 6 (5-15); BUN 13 mg/dL (7-18); BUN/Creat Ratio 14.3 RATIO (10-20); Calcium,Total 9.6 mg/dL (8.5-10.1); Chloride 100 mmol/L (98-107); Creatinine, Serum 0.91 mg/dL (0.55-1.02); EST Glomerular Filtration Rate 67 mL/min (>60); Est Glom Filt Rate - Afr Amer 81 mL/min (>60); GGTP 31 U/L (5-55); Globulin 4.2 g/dL (2.2-4.2); Glucose 103 mg/dL (74-106); Lipase 112 U/L (73-393); Potassium 3.4 mmol/L (3.5-5.1); Protein, Total 7.9 g/dL (6.4-8.2); Sodium Level 137 mmol/L (136-145)
[2022-11-08 16:36] LABS: Gastrin, Serum 64 pg/mL (0-115)
== END 2022-11-05 23:59 | disposition home or self-care (01) ==
LOC: LAB 14:19
PROVIDERS: PCP Internal Medicine; Visit Provider Nurse Practitioner Adult Health
DX: R10.9 Unspecified abdominal pain (principal); K52.9 Noninfective gastroenteritis and colitis, unspecified
CPT/HCPCS: 36415; 80053; 82150; 82941; 82977; 83690; 85025

== ENCOUNTER → 2022-11-11 | Outpatient (CLI) | payer MEDICAID, SELFPAY ==
[2022-11-14 10:32] LABS: Fats, Neutral Normal (.); Fats, Total Increased (.)
[2022-11-17 15:39] LABS: Pancreatic Elastase, Fecal 205 (>200)
== END | disposition home or self-care (01) ==
LOC: LABSPEC 11:48
PROVIDERS: PCP Internal Medicine; Referring Provider Nurse Practitioner Adult Health; Visit Provider Nurse Practitioner Adult Health
DX: R10.9 Unspecified abdominal pain (principal); K52.9 Noninfective gastroenteritis and colitis, unspecified
CPT/HCPCS: 82653; 82705

== ENCOUNTER → 2022-12-11 | Outpatient (CLI) | payer MEDICAID, SELFPAY ==
--- NOTE | 2022-12-11 10:13 | NM_ITS ---
CLINICAL: 62-year-old female with history of abdominal pain status post remote cholecystectomy. RADIONUCLIDE HEPATOBILIARY SCINTIGRAPHY COMPARISON: None available FINDINGS: Following the intravenous administration of 5.2 mCi of 99m Tc Mebrofenin, hepatobiliary images reveal: 1. Relatively prompt and homogeneous radiopharmaceutical concentration is noted by a normal sized liver. No parenchymal defects are identified. 2. Gallbladder activity is not identified during 60 minutes of sequential imaging commensurate with known history of prior cholecystectomy. 3. Small intestinal tract is observed at approximately 9 minutes post radiopharmaceutical administration. 4. Washout of the radiopharmaceutical by the hepatic parenchyma appears qualitatively normal. NM/Hepatobilliary Imaging IMPRESSION: 1. ABNORMAL 99m Tc Mebrofenin hepatobiliary imaging survey. A. Nonvisualization of the gallbladder is consistent with prior cholecystectomy. B. Further evaluation of this individual may be undertaken utilizing pre-examination CCK quantitative hepatobiliary scintigraphy to exclude the presence of post cholecystectomy syndrome-Sphincter of Oddi dysfunction. (Salvador et al, J Nucl Med 33: 1216, 1992). Electronically Signed: Ric Riley, at 21:23 EST ,
== END | disposition home or self-care (01) ==
PROVIDERS: PCP Internal Medicine; Visit Provider Nurse Practitioner Adult Health
DX: R93.2 Abnormal findings on diagnostic imaging of liver and biliary tract (principal); R10.9 Unspecified abdominal pain
CPT/HCPCS: 78226; A9537

== ENCOUNTER → 2022-12-20 | Outpatient (CLI) | payer MEDICAID, SELFPAY ==
--- NOTE | 2022-12-20 12:46 | ART_ITS ---
Reason For Study: Decreased Pedal Pulses Procedure A bilateral lower extremity continuous wave Doppler with analog waveform analysis and ankle brachial indexes. Left Segmental Pressures Left brachial= 131mmHg. Left posterior tibial artery = 132mmHg. Left dorsalis pedis artery = 130mmHg. Left digit = 74 mmHg. The left posterior tibial artery waveforms are triphasic. The left dorsalis pedis waveforms are triphasic. Right Segmental Pressures Right brachial= 125mmHg. Right posterior tibial artery = 136mmHg. Right dorsalis pedis artery = 136mmHg. Right digit = 91 mmHg. The right posterior tibial artery waveforms are triphasic. The right dorsalis pedis waveforms are triphasic. Indices The right ankle brachial index by the posterior tibial artery is 1.04. The right ankle brachial index by the dorsalis pedis is 1.04. The right digital-brachial index is 0.69. The left ankle brachial index by the posterior tibial artery is 1.01. The left ankle brachial index by the dorsalis pedis is 0.99. The left digital-brachial index is 0.56. VL/Ankle Brachial Index Interpretation Summary Right AYANNA 1.04, normal. Doppler/PVR waveforms of the right ankle normal at rest . TBI diminished, pedal/digit disease vs spasm. Left AYANNA 1.01, normal. Doppler/PVR waveforms of the left ankle normal at rest. TBI diminished, pedal/digit disease vs spasm. Ordering Physician: Joselito Bhandari Referring Physician: Ryan Leyva Performed By: Burt Leiva RVT
== END | disposition home or self-care (01) ==
PROVIDERS: PCP Internal Medicine; Referring Provider Psychiatry & Neurology Neurology; Visit Provider Psychiatry & Neurology Neurology
DX: R09.89 Other specified symptoms and signs involving the circulatory and respiratory systems (principal)
CPT/HCPCS: 93922

== ENCOUNTER → 2022-12-26 | Outpatient (CLI) | payer MEDICAID, SELFPAY ==
--- NOTE | 2022-12-26 11:52 | MRI_ITS ---
STUDY: MRI CERVICAL SPINE WITHOUT CONTRAST REASON FOR EXAM: Female, 62 years old. RADICULITIS, SPONDYLOSIS, STENOSIS TECHNIQUE: Standardized fat and water weighted pulse sequences were obtained in the sagittal and axial planes. COMPARISON: None FINDINGS: Normal foramen magnum and brainstem-cervical cord junction. Normal craniovertebral junction. Normal anterior atlantoaxial articulation. Normal odontoid process. Mild cervical kyphosis. Normal vertebral bodies and posterior osseous elements. C2-3: Normal endplates. Normal disc height, signal and morphology. Normal central canal and intervertebral neural foramina. C3-4: Normal endplates. Normal disc height. Mild degenerative anterolisthesis of C3 on C4. Normal central canal and intervertebral neural foramina. C4-5: Schmorl''s node in the central C4 inferior endplate. Pronounced disc space height narrowing. Mild ventral extradural defects due to osteophytes arising from the uncovertebral joints. Normal central canal and right intervertebral neural foramen. Mild stenosis of the left intervertebral neural foramen. C5-6: Normal endplates. Pronounced disc space height narrowing. Mild ventral extradural defect due to posterior marginal spurs. Normal central canal and left intervertebral neural foramen. Pronounced stenosis of the right intervertebral neural foramen. C6-7: Normal endplates. Pronounced disc space height narrowing. Mild ventral extradural defect due to small posterior marginal spurs. Normal central canal and right intervertebral neural foramen. Mild stenosis of the left intervertebral neural foramen. C7-T1: Normal endplates. Normal disc height, signal and morphology. Normal central canal and intervertebral neural foramina. T1-T2, T2-T3, T3-T4 and T4-T5: (Sagittal only). Normal endplates. Normal disc height and morphology. Normal central canal and intervertebral neural foramina. Normal cervical cord. Normal included upper thoracic spinal cord, brainstem and cerebellum. Normal pituitary gland and suprasellar cistern. Normal visualized soft tissue structures. MRI/Spine Cervical (Routine) IMPRESSION: 1. Pronounced stenosis of the right C5-C6 intervertebral neural foramen due to osteophytic encroachment. 2. Mild stenosis of the left C6-C7 intervertebral neural foramen due to osteophytic encroachment. 3. Mild stenosis of the left C4-C5 intervertebral neural foramen due to osteophytic. 4. Mild degenerative anterolisthesis of C3 on C4. 5. No MRI evidence of cervical extruded disc fragment or disc protrusion. 6. Normal cervical spinal cord. Electronically Signed: Hayden Howard MD at 14:43 EST ,
== END | disposition home or self-care (01) ==
PROVIDERS: PCP Internal Medicine; Referring Provider Nurse Practitioner Family; Visit Provider Nurse Practitioner Family
DX: M54.12 Radiculopathy, cervical region (principal); M47.812 Spondylosis without myelopathy or radiculopathy, cervical region; M50.30 Other cervical disc degeneration, unspecified cervical region; M48.02 Spinal stenosis, cervical region
CPT/HCPCS: 72141

== ENCOUNTER → 2023-02-03 | Outpatient (CLI) | payer MEDICAID, SELFPAY ==
--- NOTE | 2023-02-03 13:00 | MRI_ITS ---
INDICATION: epigastric pain -- normal HIDA EXAMINATION: MR MRCP and Abdomen W/O Contrast TECHNIQUE: Multiplanar and multisequence MR images of the abdomen were obtained with MRCP sequence. Three-dimensional post-processing reconstructions were performed. IV Contrast Dosage and Agent: None. COMPARISON: None. FINDINGS: LIVER: No mass. Normal morphology. GALLBLADDER AND BILIARY TREE: Surgically absent gallbladder. The CBD measures 2 mm. No intra- or extrahepatic biliary dilation. No choledochal filling defect. PANCREAS: No mass. No pancreatic duct dilation. SPLEEN: Non-enlarged. ADRENAL GLANDS: No nodules. KIDNEYS: Normal renal size and position. No hydronephrosis. No mass. GASTROINTESTINAL: Unremarkable. LYMPH NODES: No enlarged periportal or retroperitoneal lymph nodes. PERITONEUM: No ascites or fluid collection. VESSELS: Aorta is non-dilated. LOWER CHEST: No pleural effusion. BONES: Prior vertebroplasty of the T11 vertebrae with the loss of height. MRI/MRCP Abdomen without Contrast IMPRESSION: Status post cholecystectomy. No biliary dilation or choledocolithiasis. No findings to explain patient''s epigastric pain. Electronically Signed: Jevon Tamayo MD at 21:18 EST ,
== END | disposition home or self-care (01) ==
LOC: MRI 13:00
PROVIDERS: PCP Internal Medicine; Referring Provider Nurse Practitioner Adult Health; Visit Provider Nurse Practitioner Adult Health
DX: R10.13 Epigastric pain (principal); E80.6 Other disorders of bilirubin metabolism; R74.8 Abnormal levels of other serum enzymes
CPT/HCPCS: 74181

== ENCOUNTER → 2023-03-21 | Outpatient (CLI) | payer MEDICAID, SELFPAY ==
[2023-03-21 16:49] LABS: Absolute Lymphocyte Count 3.18 X10^3/uL (0.83-4.51); Absolute Neutrophil Count 6.1 X10^3/uL (2.0-7.7); Basophil# 0.09 X10^3/uL; Basophil% 0.8 % (0-1); Eosinophil# 0.45 X10^3/uL; Eosinophils% 4.2 % (0-5); Hematocrit 42.5 % (37-47); Hemoglobin 14.3 g/dL (12.0-15.0); Lymphocyte # 3.18 X10^3/ul (0.83-4.51); Lymphocyte % 29.8 % (19-41); Mean Corp Hgb Conc 33.6 g/dL (32-36); Mean Corpuscular Hgb 31.2 pg (27.0-32.0); Mean Corpuscular Volume 92.8 fL (81-99); Mean Platelet Vol. 9.6 fl (6.2-12.0); Monocyte# 0.84 X10^3/uL; Monocyte% 7.9 % (0-10); NRBC Flagged by Analyzer 0 % (0-5); Neutrophil # 6.08 X10^3/uL (2.7-7.7); Neutrophil % 56.9 % (47-70); Platelet Count 261 K/mm3 (150-450); RBC Distribution Width SD 44.2 fl (35.1-43.9); Red Blood Count 4.58 M/mm3 (4.2-5.4); White Blood Count 10.7 K/mm3 (4.4-11.0)
[2023-03-21 17:12] LABS: Vitamin D,25 Hydroxy 85.6 ng/mL
[2023-03-21 17:16] LABS: ALB/GLOB Ratio 0.9 RATIO (0.9-2.4); AST(SGOT) 36 U/L (15-37); Alanine Aminotransfer ALT/SGPT 39 U/L (13-56); Albumin, Serum 3.5 g/dL (3.2-5.0); Alkaline Phosphatase 75 U/L (45-117); Anion Gap 7 (5-15); BUN 9 mg/dL (7-18); Calcium,Total 9.5 mg/dL (8.5-10.1); Chloride 96 mmol/L (98-107); Cholesterol 142 mg/dL (200); Creatinine, Serum 0.82 mg/dL (0.55-1.02); EST Glomerular Filtration Rate 75 mL/min (>60); Est Glom Filt Rate - Afr Amer 90 mL/min (>60); Globulin 4.1 g/dL (2.2-4.2); Glucose 91 mg/dL (74-106); High Density Lipoprotein 46 mg/dL; Potassium 3.4 mmol/L (3.5-5.1); Protein, Total 7.6 g/dL (6.4-8.2); Sodium Level 133 mmol/L (136-145); Triglycerides 132 mg/dL; Very Low Density Lipoprotein 26 mg/dL (5-40)
[2023-03-21 18:29] LABS: Thyroid Stim Hormone (TSH) 3.39 uIU/mL (0.358-3.74)
== END | disposition home or self-care (01) ==
LOC: BIMLAB 14:41
PROVIDERS: Psychiatry & Neurology Neurology; PCP Internal Medicine; Referring Provider Internal Medicine; Visit Provider Internal Medicine
DX: I10 Essential (primary) hypertension (principal); G44.209 Tension-type headache, unspecified, not intractable; E78.5 Hyperlipidemia, unspecified; R53.83 Other fatigue; M85.80 Other specified disorders of bone density and structure, unspecified site
CPT/HCPCS: 36415; 80053; 80061; 82306; 84443; 85025

== ENCOUNTER → 2023-08-06 | Outpatient (CLI) | payer MEDICAID, SELFPAY ==
[2023-08-06 16:18] LABS: Anion Gap 7 (5-15); BUN 14 mg/dL (7-18); BUN/Creat Ratio 15.5 RATIO (10-20); Calcium,Total 9.3 mg/dL (8.5-10.1); Chloride 100 mmol/L (98-107); EST Glomerular Filtration Rate 67 mL/min (>60); Est Glom Filt Rate - Afr Amer 81 mL/min (>60); Glucose 97 mg/dL (74-106); Potassium 3.7 mmol/L (3.5-5.1); Sodium Level 136 mmol/L (136-145)
== END | disposition home or self-care (01) ==
LOC: BIMLAB 12:04
PROVIDERS: PCP Internal Medicine; Visit Provider Internal Medicine
DX: I10 Essential (primary) hypertension (principal)
CPT/HCPCS: 36415; 80048

== ENCOUNTER → 2023-08-20 | Outpatient (CLI) | payer MEDICAID, SELFPAY ==
--- NOTE | 2023-08-20 11:40 | CT_ITS ---
INDICATION: Chronic cough EXAMINATION: CT CHEST WITH CONTRAST - CT Chest W/ Contrast Injection TECHNIQUE: Helically acquired images were obtained of the chest following IV contrast. A radiation dose optimization technique was used for this scan. IV Contrast dosage and agent: 100 cc of Isovue-300 RADIATION DOSAGE (If Supplied By Facility): CTDIvol = ( 15.40 ) mGy, DLP = ( 614.65 ) mGycm COMPARISON: Prior noncontrast CT scan of the chest of 09/05/2021. FINDINGS: LUNGS, PLEURA AND LARGE AIRWAYS: Stable 7 mm right lower lobe nodule on image 57 series 4 unchanged. Stable 3 mm nodule in the lingula on image 70 series 4 stable 5 mm left lower lobe nodule on image 70 series 4. No new nodules are identified. Focal infiltrate is seen. No evidence of pleural effusions. THYROID: No thyroid lesions. HEART AND PERICARDIUM: Heart size is normal. No pericardial effusion. VESSELS: Thoracic aorta is not dilated. No aortic dissection. No obvious central pulmonary embolism although this study was not performed with the pulmonary embolism protocol. MEDIASTINUM AND RAHAT: No mediastinal or hilar adenopathy. Esophagus is unremarkable. No hiatal hernia. UPPER ABDOMEN: Small hiatal hernia. No acute changes. BONES: Vertebroplasty at T11 new since previous exam. CT/Chest WITH Contrast IMPRESSION: 1. Stable small pulmonary nodules for which continued annual screening with low dose CT scan in 12 months is recommended. Lung-RADS category 2, benign. 2. No acute pulmonary infiltrates or pleural effusions. 3. Small hiatal hernia. Electronically Signed: Andrea Lima MD at 13:47 EDT ,
--- NOTE | 2023-08-21 09:18 | PFT ---
INTRODUCTION: The patient is a 71-year-old female who presents for pulmonary function studies secondary to a diagnosis of cough. Respiratory therapy reported good patient effort. Bronchodilators were used during testing. INTERPRETATION: Forced expiration spirometry demonstrates no evidence of a large airways obstructive ventilatory defect. There was a significant response to aerosolized bronchodilators. Spirograms are of good quality and plateau normally. Body plethysmography was performed and revealed lung volumes to be within normal limits. Diffusing capacity by single breath CO was also within normal limits. IMPRESSION: Stigmata of small airways disease with significant bronchodilator response.
== END | disposition home or self-care (01) ==
PROVIDERS: PCP Internal Medicine; Referring Provider Internal Medicine; Visit Provider Internal Medicine
DX: R05.3 Chronic cough (principal)
CPT/HCPCS: 71260; 94060; 94726; 94729; Q9967

== ENCOUNTER 2023-10-27 11:11 | Day surgery (SDC) | payer MEDICAID, SELFPAY ==
--- NOTE | 2023-10-27 | ESO_PTH ---
PATIENT: NATALIA MARQUEZ LOC: EN U#:[id number] AGE/SX: 63/F ROOM: RE10/27/[address]: Dr. Casey Summers DO : 1960 BED: DIS: 10/27/2023 SPEC #: [id number] RECD: 10/27/23 14:28 STATUS: DEMIAN REYaima #: [id number] MARK: 10/27/23 00:[address]: Casey Summers DEPT: SURGICAL PATHOLOGY RECD BY: Dashawn Cordero ENTERED: 10/28/23 08:21 SP TYPE: BENITA HUERTA DR: Dr. Ryan Leyva MD Tissues: A - Duodenum, NOS B - Esophagus, NOS Procedures: Special Stain Group II Surgery Specimen Level IV Alcian Blue/PAS (control) HEADER OPERATION: EGD with Botox and biopsy PRE-OP DIAGNOSIS: Rothman's esophagus TISSUE SUBMITTED: A - Duodenum, B - Distal esophagus MICROSCOPIC DIAGNOSIS A. Duodenum, biopsy: No pathologic change. B. Distal esophagus, biopsy: Fragments of gastric mucosa with chronic inflammation. No evidence of goblet cell metaplasia. See comment. AM:sebastian 10/29/2023 COMMENT B. Alcian blue/PAS stain with matched control supports the above diagnosis. MICROSCOPIC DESCRIPTION Slides are reviewed. GROSS DESCRIPTION A - Received in fixative is one container labeled with the patient's name and designated duodenum biopsy. The specimen consists of two irregular fragments of light huizar soft tissue that in aggregate measure 0.3 x 0.2 x 0.1 cm. The specimen is totally submitted in one cassette. B - Received in fixative is one container labeled with the patient's name and designated distal esophagus. The specimen consists of two irregular fragments of light huizar soft tissue that in aggregate measure 0.6 x 0.6 x 0.1 cm. The specimen is totally submitted in one cassette. / AM:sebastian 10/28/2023 TC:3 CPT: 55078 x2, 45852
--- NOTE | 2023-10-27 11:18 | PCM.HP.BLA ---
History and Physical Date of Admission: 10/27/23 NATALIA MARQUEZ, is a 62 F who presents to the office today for f/u recurrent epigastric pain. Extensive w/u hasn't revealed a specific cause. Normal right upper quadrant ultrasound, normal HIDA, normal MRCP, gastric emptying study normal. At last appt 01/2023 we started gabapentin 300 mg bid; no adverse effects, pain is less frequent and less severe typically. Having it about 4 days per week (used to be daily), more tolerable. She had a bad episode of pain yesterday after gardening. She continues on pancreatic enzymes for EPI. Gastric ulcers were treated. Elevated gastrin level normalized. The pancreatic enzymes have helped her bowels, less urgency, more formed. The abdominal pain can be sharp and stabbing, other times she describes it as a dull stabbing pain, it goes through to the back. Elevated gastrin -- 04/08/22 gastrin 415 (0-115). 05/20/22 gastrin 564, vitamin B12 and folate were normal. 05/31/22 gastric emptying study is normal. 07/16/22 gastrin 871; so we discontinued PPI. 08/13/22 octreotide SPECT scan negative for neuroendocrine tumor.? 11/05/2022 gastrin 64. Remains on [id number]. Gastric ulcers -- Multiple gastric ulcers on EGD 05/2022, just one small gastric ulcer on EGD 10/2022. Previously on ASA and meloxicam. Dysphagia -- Esophageal stenosis dilated 05/01/22 but that didn't help dysphagia. 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 10/2022 EGD--no relief with botulinum injections and dilation of Schatzki ring. Modified barium swallow with speech therapist in January 2022 which showed retention throughout esophagus, slow emptying, and retrograde flow of bolus. Reese pH normal. 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 Diarrhea -- Taking colestipol every other day, that helps to manage the diarrhea. No improvement in diarrhea since discontinuing PPI therapy 07/2022.? Pancreatic enzymes have helped with the diarrhea. NAFLD -- Liver stiffness 10.5 kPa compatible with F2 to F3. Comorbidities include: anxiety, DDD, depression, fibromyalgia, GERD, gout, dyslipidemia, hypersomnolence, HTN, MVP, obesity, osteoporosis, recurrent UTI, hypokalemia, SI joint pain, fatty liver, insomnia. Hx RA, saw Dr Padilla but insurance changed so she then went to [facility]--they told her she didn't have RA. Amitriptyline is for pain. ROS Const Constitutional: No fatigue ENT ENT: Positive for difficulty swallowing Gastro GI: Positive for abdominal pain, heartburn and difficulty swallowing; No belching, bloating, change in bowel habits, change in stool character, coffee ground emesis, constipation, cramping, diarrhea, feeling full early, excessive flatus, incontinent of stools, Vomiting blood/hematemesis, Blood in stool, loose stools, Black,tarry stools, nausea/dyspepsia, pain with swallowing, vomiting or other Musc Musculoskeletal: No joint pain Skin Skin: No yellowing of the eye or itchy eyes Psych Psychiatric: No anxiety and No depression Endo Endocrine: No fatigue Aller/Imm Allergy/Immunologic: No itchy eyes Woo/Lymp Hematologic/Lymphatic: No easy bleeding or easy bruising Exam Const General: cooperative and comfortable Nutritional Appearance: obese Orientation: alert, awake and oriented x3 Eyes Sclera: sclerae normal Resp Effort & Inspection: normal respiratory effort Neuro Gait: normal gait Psych Mood: euthymic mood Quality Reporting Tobacco Screening ([facility] 138) Smoking Status: Never smoker Assessment and Plan Assessment and Plan (1) Epigastric pain: Status: Chronic Plan: Gabapentin is helping, increase to 600 mg bid, call me in a month with an update, f/u 6 mos Will need to update EGD to f/u Rothman's Medications: Changed From gabapentin 300 mg PO BID 60 caps 2RF To gabapentin 600 mg (2 x 300 mg) PO BID 180 caps 3RF Discontinued prednisone Discontinued Reason: Order Completed 40 mg (2 x 20 mg) PO DAILY 10 tabs 0RF I have examined the patient and the H&P has been reviewed. There are no clinical changes since date of exam. Assessment & Plan Assessment/Plan (1) Barretts esophagus: QUALIFIERS: Rothman's esophagus type: without dysplasia Qualified Code(s): K22.70 - Rothman's esophagus without dysplasia
[2023-10-27 11:50] VITALS: BP 120/93; PULSE 95; RESP 16; TEMP 36.4; O2SAT 95; BMI 35.6
[2023-10-27] MEDS: Lactated Ringers 1,000 ML 15 ML IV (11:55)
[2023-10-27] MEDS: 0.9% Saline Lock 10 ML Syringe IV (12:43)
[2023-10-27] MEDS: 0.9% Normal Saline (Pres. free 10 ML Vial (12:56)
[2023-10-27] MEDS: Botulinum Toxin A 100 Units Vial IJ (12:56)
--- NOTE | 2023-10-27 13:09 | OP.EGD_ITS ---
Patient Name: Valeria Ahmadi Procedure Date: 10/27/2023 12:37 PM Date of : 1960 Age: 63 Procedure: Upper GI endoscopy Indications: Dysphagia Providers: Casey Summers DO Medicines: Monitored Anesthesia Care Patient Profile: This is a 63 year old female. Refer to note in patient chart for documentation of history and physical. Patient has symptoms of chronic chest pain, chronic dysphagia and chronic dyspepsia. Complications: No immediate complications. Procedure: Pre-Anesthesia Assessment: - Prior to the procedure, a History and Physical was performed, and patient medications and allergies were reviewed. The patient is competent. The risks and benefits of the procedure and the sedation options and risks were discussed with the patient. All questions were answered and informed consent was obtained. Patient identification and proposed procedure were verified by the physician in the pre-procedure area. Mental Status Examination: normal. Airway Examination: normal oropharyngeal airway and neck mobility. Respiratory Examination: clear to auscultation. CV Examination: normal. Prophylactic Antibiotics: The patient does not require prophylactic antibiotics. Prior Anticoagulants: The patient has taken no anticoagulant or antiplatelet agents. ASA Grade Assessment: II - A patient with mild systemic disease. After reviewing the risks and benefits, the patient was deemed in satisfactory condition to undergo the procedure. The anesthesia plan was to use monitored anesthesia care (MAC). Immediately prior to administration of medications, the patient was re-assessed for adequacy to receive sedatives. The heart rate, respiratory rate, oxygen saturations, blood pressure, adequacy of pulmonary ventilation, and response to care were monitored throughout the procedure. The physical status of the patient was re-assessed after the procedure. After obtaining informed consent, the endoscope was passed under direct vision. Throughout the procedure, the patient's blood pressure, pulse, and oxygen saturations were monitored continuously. The Endoscope was introduced through the mouth, and advanced to the second part of duodenum. The upper GI endoscopy was accomplished without difficulty. The patient tolerated the procedure well. Scope In: 12:54:24 PM Scope Out: 1:00:56 PM Total Procedure Duration Time 0 hours 6 minutes 32 seconds Findings: Abnormal motility was noted in the esophagus. The cricopharyngeus was abnormal. There is spasticity of the esophageal body. The distal esophagus/lower esophageal sphincter is spastic, but gives up passage to the endoscope. Tertiary peristaltic waves are noted. Area was successfully injected with 100 units botulinum toxin. LA Grade A (one or more mucosal breaks less than 5 mm, not extending between tops of 2 mucosal folds) esophagitis with no bleeding was found 38 to 40 cm from the incisors. Biopsies were taken with a cold forceps for histology. Verification of patient identification for the specimen was done. Estimated blood loss was minimal. A medium-sized hiatal hernia was present. The entire examined stomach was normal. Patchy mild inflammation characterized by congestion (edema), erosions and erythema was found in the duodenal bulb. Biopsies were taken with a cold forceps for histology. Verification of patient identification for the specimen was done. Estimated blood loss was minimal. Impression: - Abnormal esophageal motility. Injected with botulinum toxin. - LA Grade A reflux esophagitis with no bleeding. Biopsied. - Medium-sized hiatal hernia. - Normal stomach. - Duodenitis. Biopsied. Recommendation: - Discharge patient to home. - Resume previous diet. - Continue present medications. - Await pathology results. Procedure Code(s): --- Professional --- 23150, Esophagogastroduodenoscopy, flexible, transoral; with biopsy, single or multiple 01400, 59,51, Esophagogastroduodenoscopy, flexible, transoral; with directed submucosal injection(s), any substance CPT copyright 2021 [employer]. All rights reserved. The codes documented in this report are preliminary and upon research methodologist review may be revised to meet current compliance requirements. Casey Summers DO 10/27/2023 1:08:43 PM This report has been signed electronically. Number of Addenda: 0 Note Initiated On: 10/27/2023 12:37 PM
--- NOTE | 2023-10-27 13:09 | OP.CCLET_ITS ---
10/27/2023 Ryan Leyva MD [address] [place] [address] [place] [address] Re : Upper GI endoscopy procedure for Valeria Ahmadi Dear Dr. Leyva This procedure was performed on Friday, October 27, 2023. My impressions and recommendations are as follows: Impressions : - Abnormal esophageal motility. Injected with botulinum toxin. - LA Grade A reflux esophagitis with no bleeding. Biopsied. - Medium-sized hiatal hernia. - Normal stomach. - Duodenitis. Biopsied. Recommendations : - Discharge patient to home. - Resume previous diet. - Continue present medications. - Await pathology results. My findings are described in the full procedure note, which is enclosed. If I can be of further assistance, please feel free to contact me at . Sincerely, Casey Summers, 10/27/2023 1:08:43 PM This report has been signed electronically.
[2023-10-27 13:10] VITALS: BP 120/93; BP 122/80; PULSE 90; RESP 16; TEMP 36.6; O2SAT 93
[2023-10-27 13:15] VITALS: BP 113/62; BP 120/93; PULSE 85; RESP 16; O2SAT 96
[2023-10-27 13:18] VITALS: BP 117/71; BP 120/93; PULSE 85; RESP 16; TEMP 37.2; O2SAT 95
[2023-10-27 13:38] VITALS: BP 120/93
== END 2023-10-27 13:44 | disposition home or self-care (01) ==
LOC: EN 11:12 → AC 11:13
PROVIDERS: PCP Internal Medicine; Referring Provider Internal Medicine; Visit Provider Internal Medicine Gastroenterology
PROC: 0DJ08ZZ Inspection of Upper Intestinal Tract, Via Natural or Artificial Opening Endoscopic (ICD-10-PCS; CPT 43235; principal; 2023-10-27 12:40)
DX: R10.13 Epigastric pain (principal); K44.9 Diaphragmatic hernia without obstruction or gangrene; K22.70 Barrett's esophagus without dysplasia; K29.80 Duodenitis without bleeding; R13.10 Dysphagia, unspecified; G89.29 Other chronic pain; K20.90 Esophagitis, unspecified without bleeding; K22.89 Other specified disease of esophagus
CPT/HCPCS: 43239; 43236; 88305; 88313; J7120; A4216; J0585; J2405; J3490

== ENCOUNTER → 2023-12-22 | Outpatient (CLI) | payer MEDICAID, SELFPAY ==
[2023-12-22 14:30] LABS: Mucous, Urine 0 SEEN /hpf (<or=2+)
[2023-12-22 15:37] LABS: Color, Urine Yellow (Yellow); Glucose, Dipstick Normal (Normal); Ketone-Dipstick Negative (Negative); Leukocyte Esterase-Dipstick 500 /ul (Negative); Nitrite-Dipstick Positive (Negative); Occult Blood-Urine 10 /ul (Negative); Protein-Dipstick 15 mg/dl (Negative); Specific Gravity, Urine 1.015 (1.002-1.030); Urine Bilirubin Dipstick Negative (Negative); Urine Clarity Sl. Cloudy (Clear); Urine Urobilinogen Normal (Normal)
[2023-12-22 16:20] LABS: Bacteria 1+ /hpf (None Seen); Red Blood Cells-Urine 0-5 SEEN /hpf (0-5); Squamous Epithelial Cells - UA 0-5 SEEN /hpf (5-10); White Blood Cells 10-25 SEEN /hpf (0-5)
== END | disposition home or self-care (01) ==
LOC: LABSPEC 14:28
PROVIDERS: PCP Internal Medicine; Visit Provider Internal Medicine
DX: R30.0 Dysuria (principal)
CPT/HCPCS: 81001; 87077; 87086; 87088; 87186

== ENCOUNTER → 2024-01-09 | Outpatient (CLI) | payer MEDICAID, SELFPAY ==
[2024-01-09 15:07] LABS: Mucous, Urine 0 SEEN /hpf (<or=2+); Red Blood Cells-Urine 0 SEEN /hpf (0-5)
[2024-01-09 17:24] LABS: Color, Urine Yellow (Yellow); Glucose, Dipstick Normal (Normal); Ketone-Dipstick Negative (Negative); Leukocyte Esterase-Dipstick 25 /ul (Negative); Nitrite-Dipstick Positive (Negative); Occult Blood-Urine 10 /ul (Negative); Protein-Dipstick 15 mg/dl (Negative); Urine Bilirubin Dipstick Negative (Negative); Urine Clarity Clear (Clear); Urine Urobilinogen Normal (Normal)
[2024-01-09 17:42] LABS: Squamous Epithelial Cells - UA 0-5 SEEN /hpf (5-10); White Blood Cells 0-5 SEEN /hpf (0-5)
[2024-01-09 17:43] LABS: Bacteria 1+ /hpf (None Seen); Renal Epithelial Cells 0-5 SEEN /hpf (0-5)
== END | disposition home or self-care (01) ==
LOC: LABSPEC 15:07
PROVIDERS: PCP Internal Medicine; Referring Provider Internal Medicine; Visit Provider Internal Medicine
DX: R30.0 Dysuria (principal)
CPT/HCPCS: 81001; 87077; 87086; 87088; 87186

== ENCOUNTER → 2024-01-21 | Outpatient (CLI) | payer MEDICAID, SELFPAY ==
[2024-01-21 10:46] LABS: Absolute Lymphocyte Count 3.48 X10^3/uL (0.83-4.51); Absolute Neutrophil Count 4.6 X10^3/uL (2.0-7.7); Basophil# 0.09 X10^3/uL; Eosinophil# 0.27 X10^3/uL; Eosinophils% 2.9 % (0-5); Hematocrit 42.3 % (37-47); Hemoglobin 13.9 g/dL (12.0-15.0); Lymphocyte # 3.48 X10^3/ul (0.83-4.51); Lymphocyte % 37.9 % (19-41); Mean Corp Hgb Conc 32.9 g/dL (32-36); Mean Corpuscular Hgb 30.3 pg (27.0-32.0); Mean Corpuscular Volume 92.4 fL (81-99); Mean Platelet Vol. 9.1 fl (6.2-12.0); Monocyte# 0.67 X10^3/uL; Monocyte% 7.3 % (0-10); NRBC Flagged by Analyzer 0 % (0-5); Neutrophil # 4.63 X10^3/uL (2.7-7.7); Neutrophil % 50.6 % (47-70); Platelet Count 270 K/mm3 (150-450); RBC Distribution Width CV 12.4 % (11.6-14.6); RBC Distribution Width SD 41.9 fl (35.1-43.9); Red Blood Count 4.58 M/mm3 (4.2-5.4); White Blood Count 9.2 K/mm3 (4.4-11.0)
--- OUTSIDE RECORDS SUMMARY | 2024-01-21 10:51 | XMS RPT_ITS | CCD ---
Author Name Unknown Address [address] [place] [address] Organization [facility] Care Team Providers Care [employer] Rep Name Role Phone MICHAEL PRAEDES Unavailable Unavailable MICHAEL PAREDES Unavailable Unavailable Autumn MURRELL, Ryan Muniz Primary Care Provider [phone] Ryan Leyva MD Primary Care Provider [phone] SHARON MURRELL, DR HOGAN Primary Care Unavailab ODESSA Juárez Attending Unavailable Allergies Allergy Classification Reported Allergen(s) Allergy Type Date of Onset Reaction(s) Facility (4 sources) buPROPion; Translations: [BUPROPION HCL] Drug Allergy 2 Mental Status Change [facility] Repository (4 sources) FLUoxetine; Translations: [FLUOXETINE HCL] Drug Allergy 2 Intolerance [facility] Repository (4 sources) oxyCODONE; Translations: [OXYCODONE] Drug Allergy 5 Itching [facility] Repository (4 sources) PARoxetine; Translations: [PAROXETINE HCL] Drug Allergy 2 Intolerance [facility] Repository (4 sources) Penicillins; Translations: [PENICILLINS] Propensity to adverse reactions to drug (disorder) 6 Itching [facility] Repository (3 sources) Acetaminophen / HYDROcodone Drug Allergy 8 Itching [facility] Medications Completed/Discontinued Medications Medication Drug Class(es) Dates Sig (Normalized) Sig (Original) amitriptyline hydrochloride 25 mg oral tablet (3 sources) Tricyclic Antidepressant Start: 06-11-2021 take 1 tablet by mouth at bedtime amitriptyline (ELAVIL) 25 mg tablet amitriptyline 25 mg tablet take 1 tablet by mouth at bedtime 0 06/11/2021 Active Problems Active Problems Problem Classification Problem Date Documented Date Episodic/Chronic Disorders of lipid metabolism (3 sources) Hyperlipidemia; Translations: [Hyperlipidemia, unspecified] Onset: 08-11-2012 08-11-2012 Chronic Essential hypertension (3 sources) Benign essential hypertension; Translations: [Essential (primary) hypertension] Onset: 11-15-2011 11-15-2011 Chronic Mood disorders (3 sources) Recurrent major depression in partial remission; Translations: [Major depressive disorder, recurrent, in partial remission] 12-04-2015 Chronic Nonmalignant breast conditions (3 sources) Fibrocystic changes of bilateral breasts; Translations: [Diffuse cystic mastopathy of right breast] Onset: 02-05-2019 02-05-2019 Chronic Nutritional deficiencies (3 sources) Vitamin D deficiency; Translations: [Vitamin D deficiency, unspecified] Onset: 10-24-2009 10-24-2009 Chronic Other congenital anomalies (3 sources) Accessory navicular bone of foot; Translations: [Other congenital malformations of lower limb(s), including pelvic girdle] Onset: 01-09-2016 01-09-2016 Chronic Other connective tissue disease (1 source) Chronic pain of left foot; Translations: [Pain in left foot] Episodic Other eye disorders (3 sources) Degenerative disorder of eye; Translations: [Degenerative myopia, unspecified eye] Onset: 03-12-2011 03-12-2011 Chronic Other nervous system disorders (1 source) Complex regional pain syndrome type I of left lower limb; Translations: [Complex regional pain syndrome I of left lower limb] Chronic Rheumatoid arthritis and related disease (3 sources) Rheumatoid arthritis; Translations: [Rheumatoid arthritis, unspecified] Onset: 08-06-2011 06-28-2016 Chronic Unclassified (1 source) Unknown / UNK(Unknown) Onset: 07-28-2017 Past or Other Problems Problem Classification Problem Date Documented Da te Episodic/Chronic Acquired foot deformities (3 sources) Talipes planus; Translations: [Flat foot [pes planus] (acquired), left foot] Onset: 01-09-2016 01-09-2016 Episodic Bacterial infection; unspecified site (3 sources) Methicillin resistant Staphylococcus aureus infection; Translations: [Methicillin resistant Staphylococcus aureus infection, unspecified site] Onset: 11-26-2015 11-26-2015 Episodic Diabetes mellitus without complication (3 sources) Prediabetes; Translations: [Prediabetes] Onset: 09-04-2017 09-04-2017 Episodic Melanomas of skin (3 sources) H/O Malignant melanoma; Translations: [Personal history of malignant melanoma of skin] Onset: 02-05-2019 02-05-2019 Episodic Nonmalignant breast conditions (3 sources) Fat necrosis of breast; Translations: [Fat necrosis of breast] Onset: 02-18-2019 02-18-2019 Episodic Other connective tissue disease (3 sources) Fibromyalgia; Translations: [Fibromyalgia] Onset: 07-19-2009 07-19-2009 Episodic Other connective tissue disease (3 sources) Tibialis posterior tendinitis ; Translations: [Posterior tibial tendinitis, unspecified leg] Onset: 01-09-2016 01-09-2016 Episodic Other gastrointestinal disorders (3 sources) Diarrhea; Translations: [Diarrhea, unspecified] Onset: 12-13-2011 12-13-2011 Episodic Residual codes; unclassified (3 sources) Family history of diabetes mellitus; Translations: [Family history of diabetes mellitus] Onset: 08-08-2011 08-08-2011 Episodic Residual codes; unclassified (3 sources) Postoperative state; Translations: [Other specified postprocedural states] Onset: 03-07-2016 03-07-2016 Episodic Residual codes; unclassified (3 sources) Family history of breast cancer; Translations: [Family history of malignant neoplasm of breast] Onset: 02-05-2019 02-05-2019 Episodic Skin and subcutaneous tissue infections (3 sources) Cellulitis of left foot; Translations: [Cellulitis of left lower limb] Onset: 05-08-2016 05-08-2016 Episodic Results Test Name Value Interpretation Reference Range Facil ity Vital Signs Date Time Vital Sign Value Performing Clinician Faci lity 04-04-2022 13:47-0400 Body height 166.4 cm Collin Garcia DPM Work Phone: [facility] 04-04-2022 13:47-0400 Body weight 98.43 kg Collin Garcia DPM Work Phone: [facility] 04-04-2022 13:47-0400 Respiratory rate 18 /min Collin Garcia DPM Work Phone: [facility] Encounters Encounter Date Encounter Type Care Provider Facility Start: 03-10-2023 End: 03-11-[address] EDISON HERRERA MD Facility:A Start: 11-15-2022 ambulatory Collin woo DPM Work Phone: [facility] Procedures Date Procedure Procedure Detail Performing Clinician Start: 04-04-2022 Radex foot complete minimum 3 views Ene Archer DPM Work Phone: Start: 11-05-2017 Mammography Collin caraballo DPM Work Phone: Start: 12-13-2011 Colonoscopy Collin caraballo DPM Work Phone: Plan of Treatment Date Care Activity Detail Author Start: 02-03-2023 LIPID SCREEN LIPID SCREEN [facility] Start: 08-01-2022 Influenza vaccination [facility] Start: 12-13-2021 Colonoscopy COLONOSCOPY [facility] Start: 12-13-2021 COLORECTAL CANCER SCREENING COLORECTAL CANCER SCREENING [facility] Start: 07-09-2021 DIABETES SCREEN DIABETES SCREEN [facility] Start: 04-11-2021 Urine microalbumin profile DTAP,TDAP,TD (2 - Td or Tdap) [facility] Start: 07-08-2019 ANNUAL PCP TEAM CHRONIC DISEASE VISIT ANNUAL PCP TEAM CHRONIC DISEASE VISIT [facility] Start: 11-05-2018 Mammography MAMMOGRAM [facility] Start: 2009 SHINGRIX VACCINE (1 of 2) SHINGRIX VACCINE (1 of 2) [facility] Start: 2004 COLOGUARD (FIT-DNA) COLOGUARD (FIT-DNA) [facility] Start: [address] COLONOGRAPHY [facility] Start: 2004 FECAL OCCULT BLOOD FECAL OCCULT BLOOD [facility] Start: 2004 SIGMOIDOSCOPY SIGMOIDOSCOPY [facility] Start: 1977 BP CONTROLLED (<130/80) BP CONTROLLED (<130/80) [facility] Start: 1977 HIV SCREENING HIV SCREENING [facility] Start: 1964 COVID-19 VACCINE (#1) COVID-19 VACCINE (#1) [facility] Start: 1959 COVID-19 VACCINE (#1) COVID-19 VACCINE (#1) [facility] End: 05-04-2023 Non-invasive physiologic study extremity 3 levls US ARTERIAL PVR LOWER Radiology Routine Chronic pain in left foot 1 Occurrences starting 04/04/2022 until 05/04/2023 [facility] Work Phone: Immunizations Immunization Date Immunization Notes Care Provider Buzz [email or web address] 09-10-2017 influenza, injectabl e, quadrivalent, contains preservative Collin Radha DPM Work Phone: [facility] 10-14-2016 influenza, injectabl e, quadrivalent, contains preservative Collin Radha DPM Work Phone: [facility] 10-14-2016 pneumococcal polysaccharide vaccine, 23 valent Collin Smithman DPM Work Phone: [facility] 11-25-2015 influenza, seasonal, injectable Collin Radha DPM Work Phone: [facility] Work Phone: 09-30-2013 influenza virus vacc ine, unspecified formulation Collin Radha DPM Work Phone: [facility] 09-19-2011 influenza virus vacc ine, unspecified formulation Collin Radha DPM Work Phone: [facility] 04-11-2011 tetanus toxoid, redu nando diphtheria toxoid, and acellular pertussis vaccine, adsorbed Collin Radha DPM Work Phone: [facility] Work Phone: Payers Date Payer Category Payer Private Health Insurance [id number] 2016 Medicaid UHC MEDICAID UHC COMMUNITY [employer]AN MEDICAID [id number] 2016-Present [phone] [address] [place] [address] Medicaid [id number] 2016 Medicaid UHC MEDICAID UHC COMMUNITY PLAN MEDICAID [facility] [id number] 2016-Present [phone] [address] [place] [address] Medicaid [id number] 1959 Unknown [id number] Social History Date Type Detail Facility [facility] Work Phone: Start: 04-14-2022 Alcohol intake Current drinke r of alcohol (finding) [facility] Start: 02-29-2016 History SDOH Alcohol Comment very light [facility] Start: 1960 Sex Assigned At Female C [facility] Start: 03-25-2022 End: 04-04-2022 Exposure to SARS-CoV-2 (event) Not sure [facility] Medical Equipment Procedure Code Equipment Code Equipment Origin al Text Equipment Identifier Dates Szj-Pz-Y-Kind Implant - [id number] Start: 12-19-2017 Fcl-Cq-Z-Kind Implant - [id number] Start: 12-19-2017 Lens Iol +13 Ralf p Acrsf Iq - [id number] Start: 12-06-2011 Progress note 04-04-2022 Note Date & Type Note Facility 04-04-2022 Note HNO ID: [id number] Author: Collin Garcia DPM Service: ? Author Type: Physician Type: Progress Notes Filed: 04/14/2022 11:32 AM Note Text: CC: Foot pain left foot Subjective: This 61 year old female with PMH indicated below presents for follow up diffuse pain to left foot and ankle. She states she has had no relief since her last visit one year prior however she hoped with time the pain would improve or resolve. She admits to constant throbbing and aching throughout the day and bruning, tingling, pin and needles at night. She also states her foot swells every night including all of her toes. She reports color changes to her left foot in the evening and cold toes worsening over the past year. She find herself dangling her foot over the bed at night for relief. She states the pain is now interfering with her ability to walk and complete activities of daily living. She did not obtain the brace after her last visit but she did wear CFOs for a few months until obtaining new shoes. She states the person that sold her shoes told her to try wearing the [place]as without her CFOs. She is no longer taking meloxicam and states she cannot take prednisone. She has been seen by pain management but still has no relief. Ryan Leyva MD PAST MEDICAL HISTORY Diagnosis Date - Anxiety - Depressive disorder, not elsewhere classified - Essential hypertension, benign - Fat necrosis (segmental) of breast 02/18/2019 bx proven - Fibromyalgia - Gout - Insomnia - Left foot pain - Lump of breast, right 3 months - MRSA infection 2014 LEFT THIGH - MVP (mitral valve prolapse) - Panic attacks - Pre-diabetes - Rheumatoid arthritis(714.0) Followed by [facility] - Skin cancer Current Outpatient Medications Medication Sig Dispense Refill - amitriptyline (ELAVIL) 25 mg tablet amitriptyline 25 mg tablet take 1 tablet by mouth at bedtime - cholecalciferol, Vitamin D3, (VITAMIN D3) 1,250 mcg (50,000 unit) cap capsule Take 1 capsule by mouth one time a week. - XIIDRA 5 % ophthalmic drops Use 1 Drop in both eyes twice daily. - oxybutynin ER (DITROPAN XL) 15 mg 24 hr Extended Rel Tab Take 15 mg by mouth. - pantoprazole DR (PROTONIX) 40 mg tablet Take 40 mg by mouth twice daily. - tiZANidine HCl (ZANAFLEX) 2 mg capsule Take by mouth. - sucralfate (CARAFATE) 1 gram tablet take 1 tablet by mouth before meals and at bedtime for 2 weeks - venlafaxine ER (EFFEXOR XR) 75 mg 24 hr capsule Take 2 capsules by mouth once daily. 30 capsule 3 - aspirin, enteric coated (ECOTRIN LOW STRENGTH) 81 mg EC tablet Take 1 tablet by mouth once daily. - simvastatin (ZOCOR) 40 mg tablet Take 1 tablet by mouth daily at bedtime. 30 tablet 2 - zolpidem (AMBIEN) 10 mg tab TAKE 1 TABLET BY MOUTH AT BEDTIME NEEDED FOR SLEEP. TO LAST 90 DAYS. 30 tablet 2 - hydroCHLOROthiazide (HYDRODIURIL, ESIDRIX) 25 mg tablet Take 1 tablet by mouth once daily. 30 tablet 5 - potassium chloride (K-TAB) 10 mEq tablet Take one pill four times daily for two days, then as directed 60 tablet 2 - metoprolol tartrate, short acting, (LOPRESSOR) 25 mg tablet TAKE ONE TABLET BY MOUTH TWICE DAILY 180 tablet 3 - meloxicam (MOBIC) 15 mg tablet Take 1 tablet by mouth once daily. 30 tablet 2 - nabumetone (RELAFEN) 750 mg tablet Take 1 tablet by mouth twice daily. (Patient not taking: Reported on 03/01/2021 ) 60 tablet 2 - gabapentin (NEURONTIN) 300 mg capsule Take 2 capsules by mouth twice daily. (Patient not taking: Reported on 03/01/2021) - ascorbic acid, vitamin C, (VITAMIN C) 500 mg tablet Take 1 tablet by mouth once daily. (Patient not taking: Reported on 03/01/2021 ) 30 tablet 0 - famotidine (PEPCID) 20 mg tablet Take 1 tablet by mouth once daily. 30 tablet 5 - fluorometholone (FML LIQUID FILM) 0.1 % ophthalmic suspension instill one drop in both eyes daily 3 No current facility-administered medications for this visit. ALLERGIES Allergen Reactions - Oxycodone Itching - Paxil [Paroxetine H* Intolerance Didn't work - Penicillins Itching Yeast Infections - Prozac [Fluoxetine * Intolerance Didn't work - Vicodin [Hydrocodon* Itching - Wellbutrin [Bupropi* Mental Status Change States became suicidal. PAST SURGICAL HISTORY Procedure Laterality Date - DILATION AND CURETTAGE DXAND/THER NONOBSTETRIC 2006 Dilation AND curettage - LAPAROSCOPIC APPENDECTOMY 11/20/2006 - LAPS SURG CHOLECYSTECTOMY W/CHOLANGIOGRAPHY 11/20/2006 - OPEN REPAIR OF ROTATOR CUFF ACUTE Right 03/2017 Rotator cuff repair - PAST SURGICAL HISTORY OF 1981 ABCESS-RECTAL - PAST SURGICAL HISTORY OF Left left ankle sx. - PAST SURGICAL HISTORY OF Right 08/2017 right shoulder cuff - TOTAL ABDOMINAL HYSTERECT W/WO RMVL TUBE OVARY 2004 For bleeding, ovarian cyst; left ovary still in - TOTAL KNEE REPLACEMENT Right 07/2020 - XCAPSL CTRC RMVL INSJ IO LENS PROSTH W/O ECP 12/06/2011 Phacoemulsification/Intraocular Lens In (more content not included)... [facility] Progress note 04-04-2022 Note Date & Type Note Facility 04-04-2022 Note HNO ID: [id number] Author: Augusta Saavedra MA Service: ? Author Type: Employee Communications Manager Type: Progress Notes Filed: 04/14/2022 11:32 AM Note Text: REVIEW OF SYSTEMS: GENERAL: Well developed, well nourished. No acute distress PAIN: Negative for pain, history of chronic pain or current treatment for chronic pain conditions and Pain 06/09 CARDIOVASCULAR: Negative for chest pain, leg swelling and palpations. and Hypertension, Hyperlipidemia MSK: Negative for joint swelling SKIN: Negative for lesions, rash, itching, metal sensitivity NEURO: Negative for seizure, trauma, numbness/tingling of extremities. ENDOCRINE: Negative for diabetic associated symptoms HEMATOLOGY: Negative for excessive bleeding, clots, bleeding disorders. Augusta Saavedra MA [facility] History of Present illness Narrative 04-04-2022 Collin Garcia DPM - 04/04/2022 3:37 PM EDTSnella Saavedra MA - 04/04/2022 1:46 PM EDT Note Date & Type Note Facility 04-04-2022 History of Presen t illness Narrative CC: Foot pain left foot Subjective: This 61 year old female with PMH indicated below presents for follow up diffuse pain to left foot and ankle. She states she has had no relief since her last visit one year prior however she hoped with time the pain would improve or resolve. She admits to constant throbbing and aching throughout the day and bruning, tingling, pin and needles at night. She also states her foot swells every night including all of her toes. She reports color changes to her left foot in the evening and cold toes worsening over the past year. She find herself dangling her foot over the bed at night for relief. She states the pain is now interfering with her ability to walk and complete activities of daily living. She did not obtain the brace after her last visit but she did wear CFOs for a few months until obtaining new shoes. She states the person that sold her shoes told her to try wearing the [place]as without her CFOs. She is no longer taking meloxicam and states she cannot take prednisone. She has been seen by pain management but still has no relief. Ryan Leyva MD PAST MEDICAL HISTORY Diagnosis Date Anxiety Depressive disorder, not elsewhere classified Essential hypertension, benign Fat necrosis (segmental) of breast 02/18/2019 bx proven Fibromyalgia Gout Insomnia Left foot pain Lump of breast, right 3 months MRSA infection 2014 LEFT THIGH MVP (mitral valve prolapse) Panic attacks Pre-diabetes Rheumatoid arthritis(714.0) Followed by [facility] Skin cancer Current Outpatient Medications Medication Sig Dispense Refill amitriptyline (ELAVIL) 25 mg tablet amitriptyline 25 mg tablet take 1 tablet by mouth at bedtime cholecalciferol, Vitamin D3, (VITAMIN D3) 1,250 mcg (50,000 unit) cap capsule Take 1 capsule by mouth one time a week. XIIDRA 5 % ophthalmic drops Use 1 Drop in both eyes twice daily. oxybutynin ER (DITROPAN XL) 15 mg 24 hr Extended Rel Tab Take 15 mg by mouth. pantoprazole DR (PROTONIX) 40 mg tablet Take 40 mg by mouth twice daily. tiZANidine HCl (ZANAFLEX) 2 mg capsule Take by mouth. sucralfate (CARAFATE) 1 gram tablet take 1 tablet by mouth before meals and at bedtime for 2 weeks venlafaxine ER (EFFEXOR XR) 75 mg 24 hr capsule Take 2 capsules by mouth once daily. 30 capsule 3 aspirin, enteric coated (ECOTRIN LOW STRENGTH) 81 mg EC tablet Take 1 tablet by mouth once daily. simvastatin (ZOCOR) 40 mg tablet Take 1 tablet by mouth daily at bedtime. 30 tablet 2 zolpidem (AMBIEN) 10 mg tab TAKE 1 TABLET BY MOUTH AT BEDTIME NEEDED FOR SLEEP. TO LAST 90 DAYS. 30 tablet 2 hydroCHLOROthiazide (HYDRODIURIL, ESIDRIX) 25 mg tablet Take 1 tablet by mouth once daily. 30 tablet 5 potassium chloride (K-TAB) 10 mEq tablet Take one pill four times daily for two days, then as directed 60 tablet 2 metoprolol tartrate, short acting, (LOPRESSOR) 25 mg tablet TAKE ONE TABLET BY MOUTH TWICE DAILY 180 tablet 3 meloxicam (MOBIC) 15 mg tablet Take 1 tablet by mouth once daily. 30 tablet 2 nabumetone (RELAFEN) 750 mg tablet Take 1 tablet by mouth twice daily. (Patient not taking: Reported on 03/01/2021 ) 60 tablet 2 gabapentin (NEURONTIN) 300 mg capsule Take 2 capsules by mouth twice daily. (Patient not taking: Reported on 03/01/2021) ascorbic acid, vitamin C, (VITAMIN C) 500 mg tablet Take 1 tablet by mouth once daily. (Patient not taking: Reported on 03/01/2021 ) 30 tablet 0 famotidine (PEPCID) 20 mg tablet Take 1 tablet by mouth once daily. 30 tablet 5 fluorometholone (FML LIQUID FILM) 0.1 % ophthalmic suspension instill one drop in both eyes daily 3 No current facility-administered medications for this visit. ALLERGIES Allergen Reactions Oxycodone Itching Paxil [Paroxetine H* Intolerance Didn't work Penicillins Itching Yeast Infections Prozac [Fluoxetine * Intolerance Didn't work Vicodin [Hydrocodon* Itching Wellbutrin [Bupropi* Mental Status Change States became suicidal. PAST SURGICAL HISTORY Procedure Laterality Date DILATION & CURETTAGE DX&/THER NONOBSTETRIC 2005 Dilation & curettage LAPAROSCOPIC APPENDECTOMY 11/20/2006 LAPS SURG CHOLECYSTECTOMY W/CHOLANGIOGRAPHY 11/20/2006 OPEN REPAIR OF ROTATOR CUFF ACUTE Right 03/2017 Rotator cuff repair PAST SURGICAL HISTORY OF 1980 ABCESS-RECTAL PAST SURGICAL HISTORY OF Left left ankle sx. PAST SURGICAL HISTORY OF Right 08/2017 right shoulder cuff TOTAL ABDOMINAL HYSTERECT W/WO RMVL TUBE OVARY 2004 For bleeding, ovarian cyst; left ovary still in TOTAL KNEE REPLACEMENT Right 07/2020 XCAPSL CTRC RMVL INSJ IO LENS PROSTH W/O ECP 12/06/2011 Phacoemulsification/Intraocular Lens Insertion Social History Tobacco Use Smoking status: Never Smoker Smokeless tobacco: Never Used Substance Use Topics Alcohol use: Yes Comment: very light Drug use: No FAMILY HISTORY Problem Relation Age of Onset Alcohol/Drug Father Diabetes Father age of dx unknown Diabetes Paternal Grandfather Cataract Paternal Grandfather age of dx unknown Glaucoma Paternal Grandfather Hypertension Maternal Grandfather decsd 90's, age of dx unknown Heart Maternal Grandfather Cataract Maternal Grandfather Skin Cancer Maternal Grandfather Osteoporosis Paternal Grandmother age of dx unknown Cataract Paternal Grandmother Breast Cancer Paternal Grandmother 50 Cataract Maternal Grandmother Diabetes Maternal Grandmother Brain Cancer Maternal Grandmother Breast Cancer Maternal Grandmother 45 REVIEW OF SYSTEMS See Tech's note MSK: + as noted in HPI. Physical examination: On General Observation: Patient is a pleasant, cooperative, well developed 60 year old adult female. The patient is alert and oriented to time, place and person. Patient has normal affect and mood. Resp 18 Ht 166.4 cm (5' 5.5 ) Wt 98.4 kg (217 lb) BMI 35.56 kg/m Vascular: DP and PT pulses are faintly palpable. CFT less than 3 seconds to all digits bilateral. Skin temperature is warm to warm from proximal to distal bilateral. No edema noted. No varicosities noted. Neuro: Light touch intact. Derm: Skin texture and turgor within normal limits. Toenails normal in appearance. Webspaces 1-4 clean, dry, intact bilateral. No rashes, subcutaneous nodules, or open lesions noted. No hyperkeratotic tissue noted. Musc: Mild cavus medial longitudinal arch. Muscle strength is 5/5 for all muscle groups including dorsiflexors, plantarflexors, everters, and inverters b/l. Palpable bony prominence of the medial navicular of the left foot. Pain with palpation along the posterior tibial tendon. There is mild pain to palpation of the ankle gutters. There is pain to palpation of the dorsal midfoot over the first and second TMT joints. There is mild pain with midtarsal joint range of motion. The 2nd digit of the left is contracted with a Flexion contracture at the PIPJ as well as an Extension type contracture at the metatarsophalangeal joint left foot. There is not callus formation noted under the adjacent metatarsophalangeal joint. The deformity is rigid. Ankle joint ROM is decreased b/l, STJ, and MTJ ROM full without pain or crepitus b/l. Pain to palpation base of 5th metatarsal left foot. Pain with eversion against resistance. Pain with palpation to peroneal tubercle left foot. Radiographs: 3 views of the left foot were taken today. Radiographic impression: Positive degenerative changes noted to midfoot with periarticualr spur formation and joint space narrowing noted. All cortices are intact. No acute fxs or dislocations noted. There is evidence of left second contracted digit. There is an area of radiolucency of the medial cuneiform likely from post operative sequela. Plantar and posterior calcaneal spurring noted. Impression: This is a 61 year old patient presenting with chronic pain and possible CRPS left foot Plan: A problem focused history and physical examination were preformed. The patient was educated on clinical and radiographic findings, diagnosis and treatment plans. Patient states that she understands all that has been explained and all questions were answered to her apparent satisfaction. - Continue supportive shoegear - Recommend using CFOs - NSAIDs as needed - Continue to follow with pain management. - PVRs ordered - Follow up after PVRs Ene Archer DPM PGY-3 I personally saw and evaluated the patient. I reviewed the resident's note. I agree with the resident's assessment and plan unless otherwise noted. Collin Garcia DPM, FACFAS REVIEW OF SYSTEMS: GENERAL: Well developed, well nourished. No acute distress PAIN: Negative for pain, history of chronic pain or current treatment for chronic pain conditions and Pain 06/09 CARDIOVASCULAR: Negative for chest pain, leg swelling and palpations. and Hypertension, Hyperlipidemia MSK: Negative for joint swelling SKIN: Negative for lesions, rash, itching, metal sensitivity NEURO: Negative for seizure, trauma, numbness/tingling of extremities. ENDOCRINE: Negative for diabetic associated symptoms HEMATOLOGY: Negative for excessive bleeding, clots, bleeding disorders. Augusta Saavedra MA documented in this encounter [facility] History of Past illness Narrative 12-19-2017 Note Date & Type Note Facility documented as of this encounter (statuses as of 04/14/2022) [facility] History of Past illness Narrative 12-19-2017 Note Date & Type Note Facility documented as of this encounter (statuses as of 04/25/2022) [facility] History of Past illness Narrative 12-19-2017 Note Date & Type Note Facility documented as of this encounter (statuses as of 11/15/2022) [facility] Evaluation note Note Date & Type Note Facility documented in this encounter [facility] Reason for referral (narrative) Diagnostic Procedure Only (Routine) - Authorized Note Date & Type Note Facility Referral ID Status Reason Start Date Expiration Date Visits Requested Visits Authorized [id number] Authorized Auto-Generat ed Referral 04/04/2022 05/04/2023 1 1 * Diagnostic Procedure Only (Routine) - Pending Review Specialty Diagnoses / Procedures Referred By Contac t Referred To Contact XR IMAGING Diagnoses Chronic pain in left foot Procedures XR FOOT GENERAL 3V AP/LAT/OBL LEFT RADEX FOOT COMPLETE MINIMUM 3 VIEWS Collin Garcia DPM [address] [place] [address] Xr Imaging Referral ID Status Reason Start Date Expiration Date Visits Requested Visits Authorized [id number] Pending Review Auto-Generat ed Referral 04/04/2022 05/04/2023 1 1 [facility] Summary Purpose Family History No Family History Records FoundNo Family History Records FoundNo Family History Records FoundNo Family History Records Found Advance Directives No Advanced Directives Records FoundDocuments on File Type Date Recorded 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 Advance Directive(s) 12/19/2017 6:57 AM sc anned to documents Advance Directive(s) 12/19/2017 10:58 AM Documents on File Type Date Recorded 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 Advance Directive(s) 12/19/2017 6:57 AM sc anned to documents Advance Directive(s) 12/19/2017 10:58 AM Documents on File Type Date Recorded 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 Advance Directive(s) 12/19/2017 10:58 AM Additional Source Comments INFORMATION SOURCE (unrecogn ized section and content) DATE CREATED AUTHOR AUTHOR'S ORGANIZ ATION 10/11/2019 [facility] DATE CREATED AUTHOR AUTHOR'S ORGANIZ ATION 04/17/2022 [facility] DATE CREATED AUTHOR AUTHOR'S ORGANIZ ATION 03/18/2023 [facility] [place] ([place]) Source Comments (unrecognize d section and content) In the event this informatio n is protected by the Federal Confidentiality of Alcohol and Drug Abuse Patient Records regulations: The Federal rules restrict any use of the information to criminally investigate or prosecute any alcohol or drug abuse patient.[facility] the event this information is protected by the Federal Confidentiality of Alcohol and Drug Abuse Patient Records regulations: The Federal rules restrict any use of the information to criminally investigate or prosecute any alcohol or drug abuse patient.[facility] the event this information is protected by the Federal Confidentiality of Alcohol and Drug Abuse Patient Records regulations: The Federal rules restrict any use of the information to criminally investigate or prosecute any alcohol or drug abuse patient.[facility] Reason for Visit (unrecogniz ed section and content) Care Teams (unrecognized sec tion and content) [employer] Rep Relationship Specialty Start Date End Date Ryan Leyva MD PCP - General Internal Medicine 03/10/19 FOR RECORDS PERTAINING TO PATIENTS WHO ARE OR HAVE BEEN ENROLLED IN A CHEMICAL DEPENDENCY/SUBSTANCEABUSE PROGRAM, SOME INFORMATION MAY BE OMITTED. This clinical summary was aggregated from multiple sources. Caution should be exercised in using it in the provision of clinical care. This summary normalizes information from multiple sources, and as a consequence, information in this document may materially change the coding, format and clinical context of patient data. In addition, data may be omitted in some cases. CLINICAL DECISIONS SHOULD BE BASED ON THE PRIMARY CLINICAL RECORDS. [employer] provides no warranty or guarantee of the accuracy or completeness of information in this document.
[2024-01-21 10:56] LABS: International Normalized Ratio 0.9; Prothrombin Time (Protime)PT. 12.6 SECONDS (11.7-14.9)
[2024-01-21 11:18] LABS: ALB/GLOB Ratio 0.8 RATIO (0.9-2.4); AST(SGOT) 16 U/L (15-37); Alanine Aminotransfer ALT/SGPT 22 U/L (13-56); Albumin, Serum 3.2 g/dL (3.2-5.0); Alkaline Phosphatase 63 U/L (45-117); Anion Gap 4 (5-15); BUN 11 mg/dL (7-18); BUN/Creat Ratio 12.6 RATIO (10-20); CRP 3.95 mg/L (0.0-3.0); Chloride 106 mmol/L (98-107); Cholesterol 204 mg/dL (200); Creatinine, Serum 0.88 mg/dL (0.55-1.02); EST Glomerular Filtration Rate 69 mL/min (>60); Est Glom Filt Rate - Afr Amer 84 mL/min (>60); Ferritin 70 ng/mL (8-252); Globulin 4.1 g/dL (2.2-4.2); Glucose 102 mg/dL (74-106); High Density Lipoprotein 40 mg/dL; Potassium 3.4 mmol/L (3.5-5.1); Protein, Total 7.3 g/dL (6.4-8.2); Sodium Level 138 mmol/L (136-145); Triglycerides 173 mg/dL; Very Low Density Lipoprotein 35 mg/dL (5-40)
[2024-01-21 11:22] LABS: Hemoglobin A1c 6.1 % (3.8-5.6)
[2024-01-22 04:07] LABS: AFP, Tumor Marker 5.2 ng/mL (0.0-9.2)
[2024-01-25 14:07] LABS: ANTINUCLEAR ANTIBODIES DIRECT Negative (Negative); Alternaria alternata <0.10 kU/L (Class 0); Bermuda Grass <0.10 kU/L (Class 0); Bluegrass, Kentucky <0.10 kU/L (Class 0); Cat Hair/Dander, Standard <0.10 kU/L (Class 0); D farinae Mite <0.10 kU/L (Class 0); D pteronyssinus <0.10 kU/L (Class 0); Dog Epithelia <0.10 kU/L (Class 0); Elm, American White <0.10 kU/L (Class 0); Mouse Urine <0.10 kU/L (Class 0); Oak, White <0.10 kU/L (Class 0); Plantain, English <0.10 kU/L (Class 0); Ragweed, Short/Common <0.10 kU/L (Class 0)
[2024-01-26 12:08] LABS: Aspirgillus flavus Negative (Neg:<1:1); Aspirgillus fumigatus Negative (Neg:<1:1); Aspirgillus niger Negative (Neg:<1:1); Immunoglobulin E 11 IU/mL (6-495)
== END | disposition home or self-care (01) ==
PROVIDERS: Internal Medicine; PCP Internal Medicine; Referring Provider Nurse Practitioner Acute Care; Visit Provider Nurse Practitioner Acute Care
DX: J30.9 Allergic rhinitis, unspecified (principal); K75.81 Nonalcoholic steatohepatitis (NASH)
CPT/HCPCS: 36415; 80053; 80061; 82105; 82728; 82785; 83036; 85025; 85610; 86003; 86038; 86140; 86225; 86235; 86606

== ENCOUNTER → 2024-03-24 | Outpatient (CLI) | payer MEDICAID, SELFPAY ==
[2024-03-24 16:05] LABS: Hemoglobin A1c 5.6 % (3.8-5.6)
[2024-03-24 16:09] LABS: Anion Gap 9 (5-15); BUN 10 mg/dL (7-18); BUN/Creat Ratio 11.8 RATIO (10-20); Calcium,Total 9.6 mg/dL (8.5-10.1); Chloride 97 mmol/L (98-107); Creatinine, Serum 0.85 mg/dL (0.55-1.02); EST Glomerular Filtration Rate 71 mL/min (>60); Est Glom Filt Rate - Afr Amer 86 mL/min (>60); Glucose 102 mg/dL (74-106); Potassium 3.2 mmol/L (3.5-5.1); Sodium Level 133 mmol/L (136-145)
== END | disposition home or self-care (01) ==
LOC: BIMLAB 13:33
PROVIDERS: PCP Internal Medicine; Visit Provider Internal Medicine
DX: R73.03 Prediabetes (principal); I10 Essential (primary) hypertension
CPT/HCPCS: 36415; 80048; 83036

== ENCOUNTER → 2024-04-06 | Outpatient (CLI) | payer MEDICAID, SELFPAY ==
[2024-04-06 13:55] LABS: Anion Gap 4 (5-15); BUN 15 mg/dL (7-18); BUN/Creat Ratio 17.8 RATIO (10-20); Calcium,Total 9.4 mg/dL (8.5-10.1); Chloride 103 mmol/L (98-107); Creatinine, Serum 0.84 mg/dL (0.55-1.02); EST Glomerular Filtration Rate 72 mL/min (>60); Est Glom Filt Rate - Afr Amer 87 mL/min (>60); Glucose 90 mg/dL (74-106); Potassium 3.8 mmol/L (3.5-5.1); Sodium Level 135 mmol/L (136-145)
== END | disposition home or self-care (01) ==
LOC: LAB 12:46
PROVIDERS: PCP Internal Medicine; Referring Provider Internal Medicine; Visit Provider Internal Medicine
DX: E87.6 Hypokalemia (principal)
CPT/HCPCS: 36415; 80048

== ENCOUNTER → 2024-07-08 | Outpatient (CLI) | payer MEDICARE, SELFPAY ==
--- NOTE | 2024-07-08 12:41 | BI_ITS ---
MAMMOGRAPHY - BILATERAL SCREENING 3-D TOMOSYNTHESIS REASON FOR EXAM: Female, 64 years old. Breast Cancer Screening PERTINENT HISTORY: No significant family history. TECHNIQUE: 2-D mammograms and 3-D Tomosynthesis of the breast (s) were performed. CAD was performed. COMPARISON: 07/03/2022 FINDINGS: The breast composition is composed of scattered fibroglandular density. Scattered benign calcifications are seen. No dense spiculated masses or suspicious microcalcifications are identified. No architectural distortion is identified. There is no skin thickening or retraction. There has been no significant change since the prior study. BI/SCRN MAMM (CAD)W/LIBERTY BILAT IMPRESSION: No mammographic signs of malignancy. Routine yearly mammograms recommended. ASSESSMENT CATEGORY: BIRADS Category 1: Negative. A letter regarding these results will be sent to the patient by the facility within 30 days. FOLLOW UP RECOMMENDATION: Yearly follow up mammogram recommended. (A) Approximately 10% of breast cancers are not detected by mammography. A normal mammogram should not delay biopsy of a clinically suspicious abnormality. Electronically Signed: Ric William MD at 13:15 EDT ,
--- NOTE | 2024-07-08 13:34 | RAD_ITS ---
STUDY: X-RAY - PELVIS AND RIGHT HIP REASON FOR EXAM: Female, 64 years old. Right hip pain. TECHNIQUE: 3 views of the pelvis and hip. COMPARISON: None. FINDINGS: Normal bowel gas pattern with air seen to the rectosigmoid. Phleboliths. Normal bilateral iliac wings, sacroiliac joints and visualized sacrum. Normal bilateral superior and inferior pubic rami. Normal pubic symphysis. Normal bilateral ischial tuberosities. Mild arthrosis of both hips. Lower lumbosacral spondylosis. RAD/HIP, UNI W/ Pelvis 2-3 Views IMPRESSION: Mild arthrosis of both hips and lower lumbosacral spondylosis. Electronically Signed: Joaquin Montes MD at 9:58 EDT ,
--- NOTE | 2024-07-08 13:34 | RAD_ITS ---
STUDY: X-RAY - LUMBAR SPINE REASON FOR EXAM: Female, 64 years old. Back pain. TECHNIQUE: 5 view(s) of the lumbar spine were obtained. COMPARISON: June 07, 2021 FINDINGS: Osteopenia. Normal lordosis. No scoliosis. 2 mm of anterolisthesis of L4 on L5 and 4 mm of anterolisthesis of L5 on S1, slightly progressed since the prior study. Diffuse moderate lower thoracic and lumbosacral facet sclerosis. Anterior wedge compression deformity of T11, relatively unchanged. New changes of kyphoplasty at T11. Intervertebral disc space narrowing diffusely most marked at L4-5 and L5-S1, relatively unchanged from prior study. Stable vascular calcification. RAD/L/S Spine Min 4 Views IMPRESSION: Osteopenia with relatively stable lower thoracic and lumbosacral spondylosis. New kyphoplasty changes at T11. Electronically Signed: Joaquin Montes MD at 9:57 EDT ,
[2024-07-08 14:19] LABS: International Normalized Ratio 0.9; Prothrombin Time (Protime)PT. 12.6 SECONDS (11.7-14.9)
[2024-07-08 14:21] LABS: Absolute Lymphocyte Count 3.15 X10^3/uL (0.83-4.51); Absolute Neutrophil Count 4.8 X10^3/uL (2.0-7.7); Basophil# 0.09 X10^3/uL; Eosinophil# 0.26 X10^3/uL; Eosinophils% 2.9 % (0-5); Hematocrit 40.8 % (37-47); Hemoglobin 13.4 g/dL (12.0-15.0); Lymphocyte # 3.15 X10^3/ul (0.83-4.51); Mean Corp Hgb Conc 32.8 g/dL (32-36); Mean Corpuscular Hgb 30.4 pg (27.0-32.0); Mean Corpuscular Volume 92.5 fL (81-99); Mean Platelet Vol. 9.7 fl (6.2-12.0); Monocyte# 0.66 X10^3/uL; Monocyte% 7.3 % (0-10); NRBC Flagged by Analyzer 0 % (0-5); Neutrophil # 4.81 X10^3/uL (2.7-7.7); Neutrophil % 53.5 % (47-70); Platelet Count 225 K/mm3 (150-450); RBC Distribution Width CV 12.5 % (11.6-14.6); RBC Distribution Width SD 42.1 fl (35.1-43.9); Red Blood Count 4.41 M/mm3 (4.2-5.4)
[2024-07-08 14:29] LABS: Hemoglobin A1c 6.6 % (3.8-5.6)
[2024-07-08 14:37] LABS: ALB/GLOB Ratio 0.8 RATIO (0.9-2.4); AST(SGOT) 26 U/L (15-37); Alanine Aminotransfer ALT/SGPT 30 U/L (13-56); Albumin, Serum 3.2 g/dL (3.2-5.0); Alkaline Phosphatase 55 U/L (45-117); Anion Gap 7 (5-15); BUN 9 mg/dL (7-18); BUN/Creat Ratio 10.8 RATIO (10-20); Calcium,Total 8.7 mg/dL (8.5-10.1); Chloride 110 mmol/L (98-107); Cholesterol 111 mg/dL (200); Creatinine, Serum 0.83 mg/dL (0.55-1.02); EST Glomerular Filtration Rate 73 mL/min (>60); Est Glom Filt Rate - Afr Amer 88 mL/min (>60); Globulin 3.9 g/dL (2.2-4.2); Glucose 124 mg/dL (74-106); High Density Lipoprotein 36 mg/dL; Potassium 3.7 mmol/L (3.5-5.1); Protein, Total 7.1 g/dL (6.4-8.2); Sodium Level 141 mmol/L (136-145); Triglycerides 209 mg/dL; Very Low Density Lipoprotein 42 mg/dL (5-40)
[2024-07-08 15:32] LABS: CRP < 2.90 mg/L (0.0-3.0)
[2024-07-08 15:48] LABS: Vitamin D,25 Hydroxy 67.2 ng/mL
== END | disposition home or self-care (01) ==
PROVIDERS: Internal Medicine; PCP Internal Medicine; Referring Provider Internal Medicine; Visit Provider Internal Medicine
DX: Z12.31 Encounter for screening mammogram for malignant neoplasm of breast (principal); E11.9 Type 2 diabetes mellitus without complications; M51.36 Other intervertebral disc degeneration, lumbar region; M25.551 Pain in right hip; R13.10 Dysphagia, unspecified; K75.81 Nonalcoholic steatohepatitis (NASH); E78.5 Hyperlipidemia, unspecified; M16.2 Bilateral osteoarthritis resulting from hip dysplasia; M47.897 Other spondylosis, lumbosacral region; M85.88 Other specified disorders of bone density and structure, other site
CPT/HCPCS: 36415; 72110; 73502; 77063; 77067; 80053; 80061; 82306; 83036; 85025; 85610; 86140

== ENCOUNTER → 2024-07-16 | Outpatient (CLI) | payer MEDICARE, SELFPAY ==
--- NOTE | 2024-07-16 10:03 | US_ITS ---
STUDY: ABDOMINAL ULTRASOUND - RIGHT UPPER QUADRANT; ELASTOGRAPHY REASON FOR VISIT: Female, 64 years old. NAFL D TECHNIQUE: Ultrasound evaluation of the right upper quadrant was performed with real-time and static morris-scale imaging. Point quantification shear wave elastography was performed ([employer]). TECHNICAL QUALITY: Adequate. COMPARISON: Comparison is made with prior study April 22, 2022. FINDINGS: Liver: The liver measures 17.5 cm. There is increased echogenicity consistent with fatty infiltration. The bile ducts are within normal limits. There is hepatic color flow. The direction of portal flow is hepatopetal. There is no demonstrated mass lesion. Median liver stiffness measured 9.9 kPa. Gallbladder: The patient is status post cholecystectomy. Common Bile Duct (C.B.D.): The common bile duct measures 2.7 mm. Pancreas: There is increased echogenicity of the pancreas. There is no demonstrated pancreatic mass or cyst. Right Kidney: Normal size of the right kidney. The right kidney measures 11.3 cm x 5.4 cm x 4.6 cm. Normal renal cortex. The right cortex measures 1.1 cm. There is no demonstrated renal mass or cyst. There is no right hydronephrosis. US/ABD Limited w/ Elastography IMPRESSION: 1. Liver stiffness measures 9.9 kPa compatible with F2-F3 (Mild to moderate liver fibrosis) Metavir score. Electronically Signed: Jorge Doherty MD at 13:19 EDT ,
== END | disposition home or self-care (01) ==
PROVIDERS: PCP Internal Medicine; Referring Provider Internal Medicine; Visit Provider Internal Medicine
DX: K75.81 Nonalcoholic steatohepatitis (NASH) (principal); E78.5 Hyperlipidemia, unspecified
CPT/HCPCS: 76705; 76981

== ENCOUNTER → 2024-07-29 | Outpatient (CLI) | payer MEDICARE, SELFPAY | END | disposition home or self-care (01) | LOC: LABSPEC 11:09 | PROVIDERS: PCP Internal Medicine; Referring Provider Physician Assistant; Visit Provider Physician Assistant | DX: J06.9 Acute upper respiratory infection, unspecified (principal) | CPT/HCPCS: 87631 ==

== ENCOUNTER → 2024-10-21 | Outpatient (CLI) | payer SELFPAY ==
[2024-10-21 11:55] LABS: SERUM TEARS COLLECTION SPECIMEN PROCESSED
== END | disposition home or self-care (01) ==
PROVIDERS: PCP Internal Medicine; Referring Provider Ophthalmology; Visit Provider Ophthalmology
DX: H04.123 Dry eye syndrome of bilateral lacrimal glands (principal)

== ENCOUNTER → 2024-10-21 | Outpatient (CLI) | payer MEDICARE, SELFPAY ==
[2024-10-21 10:33] LABS: Absolute Lymphocyte Count 3.62 X10^3/uL (0.83-4.51); Absolute Neutrophil Count 5.3 X10^3/uL (2.0-7.7); Eosinophil# 0.25 X10^3/uL; Eosinophils% 2.6 % (0-5); Hemoglobin 15.5 g/dL (12.0-15.0); Lymphocyte # 3.62 X10^3/ul (0.83-4.51); Lymphocyte % 36.9 % (19-41); Mean Corpuscular Hgb 31.4 pg (27.0-32.0); Mean Corpuscular Volume 95.1 fL (81-99); Monocyte% 5.1 % (0-10); NRBC Flagged by Analyzer 0 % (0-5); Neutrophil % 54.1 % (47-70); Platelet Count 331 K/mm3 (150-450); RBC Distribution Width CV 12.2 % (11.6-14.6); RBC Distribution Width SD 43.1 fl (35.1-43.9); Red Blood Count 4.94 M/mm3 (4.2-5.4); White Blood Count 9.8 K/mm3 (4.4-11.0)
[2024-10-21 10:42] LABS: Prothrombin Time (Protime)PT. 13.6 SECONDS (11.7-14.9)
[2024-10-21 11:04] LABS: ALB/GLOB Ratio 0.8 RATIO (0.9-2.4); AST(SGOT) 22 U/L (15-37); Alanine Aminotransfer ALT/SGPT 29 U/L (13-56); Albumin, Serum 3.6 g/dL (3.2-5.0); Alkaline Phosphatase 100 U/L (45-117); Anion Gap 8 (5-15); BUN 14 mg/dL (7-18); BUN/Creat Ratio 14.9 RATIO (10-20); CRP < 2.90 mg/L (0.0-3.0); Calcium,Total 8.9 mg/dL (8.5-10.1); Chloride 105 mmol/L (98-107); Creatinine, Serum 0.94 mg/dL (0.55-1.02); EST Glomerular Filtration Rate 64 mL/min (>60); Est Glom Filt Rate - Afr Amer 77 mL/min (>60); Globulin 4.4 g/dL (2.2-4.2); Glucose 142 mg/dL (74-106); Sodium Level 137 mmol/L (136-145)
== END | disposition home or self-care (01) ==
LOC: LAB 10:15
PROVIDERS: PCP Internal Medicine; Referring Provider Internal Medicine; Visit Provider Internal Medicine
DX: K22.70 Barrett's esophagus without dysplasia (principal); E11.9 Type 2 diabetes mellitus without complications; K76.0 Fatty (change of) liver, not elsewhere classified; R13.19 Other dysphagia; R58 Hemorrhage, not elsewhere classified
CPT/HCPCS: 36415; 80053; 85025; 85610; 86140

== ENCOUNTER 2024-10-26 11:00 | Day surgery (SDC) | payer MEDICARE, SELFPAY ==
[2024-10-26] VITALS (8 sets, daily range): BP systolic 88–143; BP diastolic 58–94; PULSE 86–101; RESP 14–18; TEMP 36.1–36.6; O2SAT 95–97; BMI 37.3
--- NOTE | 2024-10-26 12:17 | PRE.ANES_ITS ---
ASA Classification* ASA Classification ASA Classification: 3 Assessment & Plan Anesthesia* Anesthesia Assessment Anesthesia Assessment: Discussed sedation and/or anesthesia options, risks, benefits, and alternatives with patient/parents/legal guardian/POA. Questions invited. The patient/parents/legal guardian/POA seems to understand and agrees to proceed with anesthesia plan. Reviewed the physical assessment, medical history, allergy history and patient home medications list prior to surgery/procedure/anesthetic and documented any changes. Performed airway and anesthesia risk assessments. Anesthesia Type Anesthesia Type: MAC (see written pre anesthesia record for full assessment) Anesthesia Focused Assessment* Temperature: 97.0 F Pulse Rate: 101 Blood Pressure: 143/94 Respiratory Rate: 18 Pulse Ox: 95 Airway Assessment Mouth opens: 2 cm Mallampati Score: III Focused Labs Anesthesia Preop lab: CBC WBC 9.8 K/mm3 (4.4-11.0) 10/21/24 10:18 RBC 4.94 M/mm3 (4.2-5.4) 10/21/24 10:18 Hgb 15.5 g/dL (12.0-15.0) H 10/21/24 10:18 Hct 47.0 % (37-47) 10/21/24 10:18 Plt Count 331 K/mm3 (150-450) 10/21/24 10:18 CHEMISTRY Potassium 4.0 mmol/L (3.5-5.1) 10/21/24 10:18 Sodium 137 mmol/L (136-145) 10/21/24 10:18 Magnesium 2.4 mg/dL (1.6-2.6) 06/28/20 14:44 BUN 14 mg/dL (7-18) 10/21/24 10:18 Creatinine 0.94 mg/dL (0.55-1.02) 10/21/24 10:18 Glucose 142 mg/dL (74-106) H 10/21/24 10:18 POC Glucose 106 mg/dL (70-110) 09/17/21 09:52 TSH 3.39 uIU/mL (0.358-3.74) 03/21/23 14:42 COAG PT 13.6 SECONDS (11.7-14.9) 10/21/24 10:18 Pre-Assessment Diagnosis/Proposed Procedure Planned Operative Procedure(s): EGD BOTOX Anesthesia History Anesthesia History - older adult social work specialist: Anesthesia History - older adult social work specialist Hx Hospitalization No 10/22/24 15:00 Any Problems With Anesthesia No 10/22/24 15:00 Cholinesterase deficiency No 10/22/24 15:00 You/Your Family Experience No 10/22/24 15:00 fever (hyperthermia) with Relationship Recent Exposure to Contagious No 10/26/24 11:23 Disease Does patient have nerve No 10/22/24 15:00 stimulator Patient instructed to have device shut off --Does patient have Pacemaker No 10/26/24 11:23 or ICD? When Was Last Pacemaker Check QUESTION #4 FULL TEXT: You/Your Family Experience fever (hyperthermia) with Anesthesia Last Oral Intake Last Oral intake: Last Oral Intake NPO since 00:00 10/26/24 11:23 Meds taken in AM with sips of No 10/26/24 11:23 water? 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 - older adult social work specialist: PONV - older adult social work specialist Female Yes 10/22/24 15:00 HX of Motion Sickness No 10/22/24 15:00 HX of N/V After Surgery No 10/22/24 15:00 Non-Smoker Yes 10/22/24 15:00 Duration of Surgery greater No 10/22/24 15:00 than 60 minutes Number of Risk Factors 2 10/22/24 15:00 PONV Score Moderate Risk 10/22/24 15:00 Height & Weight Height & Weight: Anesthesia: Height & Weight Height 5 ft 5 in 10/26/24 11:23 Weight: 101.8 kg 10/26/24 11:23 Body Mass Index (BMI) 37.3 10/26/24 11:23 Respiratory Assessment Respiratory Assessment - older adult social work specialist: Respiratory Tract Infection Hx - older adult social work specialist Hx Respiratory Tract Infection No 10/22/24 15:00 STOP Sleep Apnea STOP Sleep Apnea - older adult social work specialist: STOP Sleep Apnea - older adult social work specialist Hx Hypertension Yes: CONTROLLED WITH MED 10/22/24 15:00 Hx Sleep Apnea Yes 10/22/24 15:00 CPAP Yes 10/22/24 15:00 BIPAP No 10/22/24 15:00 Do you snore loudly (louder than talking or can be heard Do you often feel tired/ fatigued/ sleepy during daytime? Has anyone observed you stop breathing during sleep? STOP Results Positive 10/22/24 15:00 QUESTION #5 FULL TEXT : Do you snore loudly (louder than talking or can be heard through closed doors)? Tobacco Use History Tobacco Use History - older adult social work specialist: Tobacco Use History - older adult social work specialist Tobacco Use Smoking Status Never smoker 10/22/24 15:00 Hx Tobacco Use No 10/22/24 15:00 Years Smoking Packs Smoked per Day Smoking Cessation Date was within the last 15 years Hx Smoking Cessation Date Hx Smoking Cessation Counseling Hematologic Medial History Hematologic Hx - older adult social work specialist: Hematologic Medical Hx - documentation designer Hx of Blood Transfusion No 10/22/24 15:00 Hx of Transfusion in last 3 No 10/22/24 15:00 Months Date of Last Transfusion (if within last 3 months) Ever experience any problems No 10/22/24 15:00 with transfusion(s)? Specify any problems Hx of Preganancy in last 3 No 10/22/24 15:00 Months Nurse Filling Out Transfusion DSCHRIBER 10/22/24 15:00 & Questions: Date: 10/22/24 10/22/24 15:00 Time: 15:02 10/22/24 15:00 Patient unable to answer at this time (ie. confused, unrespo /Reproduction History /Reproductive History - older adult social work specialist: /Reproductive Hx- older adult social work specialist Hx Now No 10/22/24 15:00 Gestational Age (in weeks): EDC: Hx Hx Para Hx Section SAB No 10/22/24 15:00 Active Medications Active Medications: Current Medications Generic Name Dose Route Start Last Admin Trade Name Freq PRN Reason Stop Dose Admin Non-Formulary Medication 100 units 10/26/24 12:11 Botox ENDO 10/26/24 12:12 PREMED ONE [facility] Medical History Pain Syncope and collapse Headache Type 2 diabetes mellitus Borderline type 2 diabetes mellitus Burning with urination Pharyngitis Wears partial dentures CPAP (continuous positive airway pressure) dependence COPD (chronic obstructive pulmonary disease) Chronic cough Bronchitis Ulcer Infection with methicillin-resistant Staphylococcus aureus (MRSA) Insomnia Breast cancer screening Elevated gastrin level History of stress test Cardiology follow-up encounter Hypergastrinemia Fatty liver Abdominal pain Chronic diarrhea Osteoporosis Hypersomnolence Swallowing disorder Osteopenia with high risk of fracture Wears hearing aid Wears glasses Cancer High cholesterol Restless legs Gastric reflux Non-smoker History of edema History of echocardiogram Normal stress echocardiogram History of irregular heartbeat Incidental lung nodule, > 3mm and < 8mm Bilateral sacroiliitis Sacroiliac joint pain Recurrent UTI Post-menopausal Educated about COVID-19 virus infection Cervical radiculopathy Routine health maintenance Epigastric pain Back pain Difficulty balancing Knee pain Diarrhea Fatigue Diabetes History of suicide attempt Anxiety History of MRSA infection Potassium (K) deficiency Arthritis History of gout History of skin cancer Obesity (BMI 30-39.9) Nonrheumatic mitral valve prolapse Hyperlipidemia Hypertension Fibromyalgia Depression Rheumatoid arthritis Home Medications ?Medication ?Instructions ?Recorded ?Last Taken ?Type L.acidophilus,gasseri,rhamnos-B.bifidum,long 1 cap PO .BID 12/06/21 Unknown History 1.5 billion cell capsule (Probiotic Digestive Support (Lacto,Bifido)) colestipol 1 gram tablet 1 g PO BID PRN Diarrhea 10/16/22 Unknown History [id number] See Rx Instructions PO .COMPLEX 01/24/23 Unknown Rx 40,000-126,000-168,000 unit #360 caps capsule, delay rel (Zenpep) amitriptyline 25 mg tablet 75 mg PO QHS 10/21/23 Unknown History nabumetone 500 mg tablet 500 mg PO BID PRN pain (scale 03/11/24 Unknown History score 1-3) spacer #1 ea 03/11/24 Unknown Rx blood-glucose meter (FreeStyle #1 ea 06/17/24 Unknown Rx Lite Meter kit) nifedipine 10 mg capsule 10 mg PO TID 1 month #90 caps 07/26/24 Unknown Rx denosumab 60 mg/mL subcutaneous 60 mg subcut [id number] #1 mL 10/04/24 Unknown Rx syringe (Prolia) blood sugar diagnostic (FreeStyle #100 ea 10/07/24 Unknown Rx Lite Strips) cholecalciferol (vitamin D3) 1,250 1,250 mcg PO QWEEK #14 caps 10/07/24 Unknown Rx mcg (50,000 unit) capsule metoprolol tartrate 50 mg tablet 50 mg PO BID #180 TABLETS 10/07/24 10/25/24 Rx spironolactone 50 mg tablet 50 mg PO QAM #90 tabs 10/07/24 Unknown Rx Onetouch Verio Lancing Device #200 ea 10/12/24 Unknown Rx blood sugar diagnostic (OneTouch #200 ea 10/12/24 Unknown Rx Verio test strips) cetirizine 10 mg tablet 10 mg PO DAILY PRN allergy 10/12/24 Unknown Rx symptoms #90 tabs famotidine 40 mg tablet 40 mg PO DAILY 3 months #90 tabs 10/12/24 Unknown Rx fluticasone propionate 50 2 spray intranasal DAILY #16 grams 10/12/24 Unknown Rx mcg/actuation nasal spray,suspension montelukast 10 mg tablet 10 mg PO QPM #30 tabs 10/12/24 Unknown Rx zolpidem 10 mg tablet 10 mg PO QHS PRN insomnia #30 tabs 10/12/24 Unknown Rx fluticasone furoate 200 1 inh inhalation QDAY #60 ea 10/13/24 Unknown Rx mcg-vilanterol 25 mcg/dose inhalation powder (Breo Ellipta) albuterol sulfate 90 mcg/actuation 2 puff inhalation Q4H PRN 10/14/24 Unknown Rx aerosol inhaler shortness of breath or wheezing #8.5 grams amitriptyline 100 mg tablet 100 mg PO QHS #30 tabs 10/14/24 Unknown Rx baclofen 10 mg tablet 10 mg PO TID PRN muscle 10/14/24 Unknown Rx pain/muscle spasm #90 tabs lancets 28 gauge (FreeStyle #200 ea 10/15/24 Unknown Rx Lancets) rosuvastatin 10 mg tablet 10 mg PO QHS 10/22/24 Unknown History venlafaxine 150 mg 150 mg PO QHS depression 10/22/24 Unknown History capsule,extended release 24 hr Allergy/AdvReac Type Severity Reaction Status Date / Time paroxetine (From Paxil) Allergy suicidal Verified 10/26/24 11:22 thoughts bupropion (From Wellbutrin) AdvReac Severe suicidal Verified 10/26/24 11:22 thoughts oxycodone HCl (From Percocet) AdvReac Itching Verified 10/26/24 11:22 Penicillins AdvReac YEAST Verified 10/26/24 11:22 INFECTION Family History Grandfather CAD (coronary artery disease) Heart disease Myocardial infarction Hypertension Hyperlipemia Anxiety and depression Melanoma Diabetes Grandmother Diabetes Arthritis Glaucoma Breast cancer Father Alcoholism Respiratory disease Sister Heart disease Surgical History History of esophagogastroduodenoscopy (EGD) Hx of right cataract extraction History of esophagogastroduodenoscopy (EGD) Hx of kyphoplasty History of cardiac catheterization History of right knee joint replacement History of left heart catheterization (~10/04/11) Status post cataract extraction and insertion of intraocular lens left ankle surgery History of appendectomy Hx of cholecystectomy History of hysterectomy H/O repair of right rotator cuff (~08/2017) Social History household members: none Smoking Status: Never smoker second hand exposure: No alcohol intake: current alcohol intake frequency: holidays/special occasions only substance use type: does not use what type of physical activity do you participate in: none angela/baptist: Hinduism seatbelt use: always Review of Systems (Anesthesia) ROS Narrative System reviewed and no additional complaints, except as documented.
--- NOTE | 2024-10-26 12:17 | HP.PCM_ITS ---
History and Physical Date of Admission: 10/26/24 Chief Complaint: GERONIMO Details: NATALIA MARQUEZ, is a 64 F who presents to the office today for follow up. f/u recurrent epigastric pain. Extensive w/u hasn't revealed a specific cause. Normal right upper quadrant ultrasound, normal HIDA, normal MRCP, gastric emptying study normal. At last appt 01/2023 we started gabapentin 300 mg bid; no adverse effects, pain is less frequent and less severe typically. Having it about 4 days per week (used to be daily), more tolerable. She had a bad episode of pain yesterday after gardening. She continues on pancreatic enzymes for EPI. Gastric ulcers were treated. Elevated gastrin level normalized. The pancreatic enzymes have helped her bowels, less urgency, more formed. The abdominal pain can be sharp and stabbing, other times she describes it as a dull stabbing pain, it goes through to the back. Elevated gastrin -- 04/08/22 gastrin 415 (0-115). 05/20/22 gastrin 564, vitamin B12 and folate were normal. 05/31/22 gastric emptying study is normal. 07/16/22 gastrin 871; so we discontinued PPI. 08/13/22 octreotide SPECT scan negative for neuroendocrine tumor. 11/05/2022 gastrin 64. Remains on [id number]. Gastric ulcers -- Multiple gastric ulcers on EGD 05/2022, just one small gastric ulcer on EGD 10/2022. Previously on ASA and meloxicam. Dysphagia -- Esophageal stenosis dilated 05/01/22 but that didn't help dysphagia. 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 10/2022 EGD--no relief with botulinum injections and dilation of Schatzki ring. Modified barium swallow with speech therapist in January 2022 which showed retention throughout esophagus, slow emptying, and retrograde flow of bolus. Reese pH normal. 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 Diarrhea -- Taking colestipol every other day, that helps to manage the diarrhea. No improvement in diarrhea since discontinuing PPI therapy 07/2022. Pancreatic enzymes have helped with the diarrhea. NAFLD -- Liver stiffness 10.5 kPa compatible with F2 to F3. Comorbidities include: anxiety, DDD, depression, fibromyalgia, GERD, gout, dyslipidemia, hypersomnolence, HTN, MVP, obesity, osteoporosis, recurrent UTI, hypokalemia, SI joint pain, fatty liver, insomnia. Hx RA, saw Dr Padilla but insurance changed so she then went to [facility]--they told her she didn't have RA. Amitriptyline is for pain. EGD 10.27.23- Abnormal esophageal motility, inj botox, LA Grade A reflux esophagitis with no bleeding, Med. hiatal hernia, Duodenitis- chronic inflammation, neg metaplasia OV 11.11.23- Pt doing very well since last visit. Swallowing is much better after EGD w/ Botox. Mild dysphagia difficulty with meat, bread and dry food. Intermittent epigastric about GE junction and hurts, about 8/10, stabbing wing lity or contraction type about 2 times weak. Denies HB. Does have epigastric pain a couple times a week. BM are normal once a day. Takes colestipol prn. No other complaints. Fib-4 2.21.24 0.81 OV 4.16.24- Pt stable since last visit. Continues to have mild dysphagia with certain foods LIKE dry and solid , bread. Occasional heartburn but has non periodical sharp, stabbing pain and goes through in back. No nausea or Vomiting. Continues to have epigastric pain but is tolerable. BM are normal. No diarrhea. Continues Colestipol prn. 07.08.24 Fib-4 1.37 US abd/ elastography 8.16.24- Liver measures 17.5cm Stiffness 9.9 kPa OV 08..24 Pt here for f/u fatty liver. Pt reports trouble swallowing, heartburn, nausea, diarrhea for the past 2-3 weeks. Bruises easily lately. Denies blood in stools. Pt takes Famotidine daily. Did not take colestipol or zenpep that was ordered. No significant abdominal pain but more problems with esophageal dysphagia and has to drink water. ROS Const Constitutional: Positive for fatigue, frequent falls, headache(s) and weight change; No fever(s) ENT ENT: Positive for headache(s) and difficulty swallowing Resp Respiratory: No shortness of breath or wheezing Cardio Cardiology: Positive for leg pain with exertion Gastro GI: Positive for change in bowel habits, constipation, diarrhea, heartburn and difficulty swallowing; No abdominal pain, belching, bloating, change in stool character, coffee ground emesis, cramping, feeling full early, excessive flatus, incontinent of stools, Vomiting blood/hematemesis, Blood in stool, loose stools, Black,tarry stools, nausea/dyspepsia, pain with swallowing, vomiting or other Genitourinary-Female: No difficulty urinating or burning urination Musc Musculoskeletal: Positive for abnormal gait, joint pain, back pain, joint swelling, muscle cramps, muscle weakness, stiffness, Arthritis, sciatica, leg pain at night and leg pain with exertion Skin Skin: Positive for dry skin and itchy eyes; No yellowing of the eye Neuro Neurology: Positive for abnormal gait, frequent falls and headache(s) Psych Psychiatric: Positive for anxiety and Positive for depression Endo Endocrine: Positive for fatigue and weight change Aller/Imm Allergy/Immunologic: Positive for itchy eyes; No wheezing Woo/Lymp Hematologic/Lymphatic: No easy bleeding or easy bruising Exam Const General: cooperative, comfortable and no acute distress Nutritional Appearance: obese Orientation: alert, awake and oriented x3 Other: BMI 38.2 PG per square meter. 104 kg. HENMT Head: normal to inspection, normocephalic and atraumatic Ears: hearing grossly normal bilaterally Nose: external nose normal Face and sinus: normal facial exam Mouth: moist mucous membranes Eyes Pupils: PERRL EOM: EOM intact bilaterally Neck Neck: normal visual inspection, full ROM and supple Neck mass: No Thyroid: thyroid normal Carotids: no bruits Chest Chest palpation & inspection: normal inspection of the chest Resp Effort & Inspection: normal respiratory effort and able to speak in complete sentences Auscultation: Bilateral: Clear to Auscultation Cardio Palpation: normal PMI Rate: regular rate Rhythm: regular rhythm Heart Sounds: S1 normal and S2 normal GI Auscultation: normal bowel sounds Percussion: normal to percussion Palpation: soft (No palpable organomegaly.) General: bimanual renal exam normal bilaterally, bladder normal to inspection and bladder normal to palpation Bimanual Exam- Vagina & Uterus: bladder normal to palpation Musc Musculoskeletal: No joint tenderness, joint redness, joint warmth or decreased range of motion Thoracic/Lumbar Spine: thor and lumb spine abnorm to inspection Skin General: rashes and/or lesions noted, turgor normal and no erythema Wounds: wound noted Neuro General: patient alert, patient awake, patient oriented x3, moves all extremities and CN's II-XI intact bilaterally Speech: speech normal Motor: muscle tone normal throughout Extrem General: no clubbing, cyanosis or edema Psych Appearance: grossly normal Mental Status: mental status grossly normal Mood: congruent mood Affect: normal affect Attitude: cooperative Assessment and Plan Assessment and Plan (1) Metabolic dysfunction-associated steatotic liver disease (MASLD): Status: Chronic Plan: Patient body weight remains similar. BMI 36.4 kg/m?. Labs reviewed from July 2024. Glucose 124, A1c 6.6% increased from the previous 6.1% therefore DM type II adult-onset. Fasting profile shows triglyceride 209, LDL 33, and VLDL 42 HDL 36. Vitamin D 25-hydroxy normal. Liver chemistry normal limit. Fib 4 index 1.37. RUQ ultrasound with elastography reviewed shows liver size 17.5 cm, increased echogenicity. Bile ducts within normal limit. No demonstrated mass lesion. Median liver stiffness 9.9 kPa. Status postcholecystectomy. CBD 2.7 cm. Increased echogenicity of pancreas. No pancreatic mass. Previous liver ultrasound with elastography in March 2022 showed liver size 20 cm with median liver stiffness 10.5 kPa therefore improving. 07.08.24 Fib-4 1.37 I discussed the risk factors, pathogenesis, natural history complications including cirrhosis and HCC of metabolic dysfunction associated steatotic liver disease, (MASLD) and patient affirmed understanding. There is There is recently 1 approved FDA medication for NAFLD, Resmitrom (Rezdiffra) but medications used for diabetes mellitus and weight loss mainly to metformin, pioglitazone, empagliflozin and GLP-1 agonist like semaglutide, dulaglutide/Trulicity have been found to decrease fatty content and improve fibrosis score found in the research literature. Indication, response rate, benefits, side effects/adverse effects and drug drug interaction of Resmitrom first FDA approved medication for F2 F3 liver fibrosis, MASLD was discussed with the patient with booklet. Questions encouraged and answered. Patient agreed to take it. (2) Dysphagia: Status: Chronic Qualifiers: Dysphagia type: esophageal phase Qualified Code(s): R13.19 - Other dysphagia Plan: Patient had extensive investigation for dysphagia. On manometry was found to have EGJ outflow obstruction with elevated mean lower esophageal sphincter pressure. Intermittently she gets epigastric abdominal pain feeling like contraction. Advised soft moist to wet food with water. She had EGD in October where botulinum injection was done. esophagitis. Medium hiatus hernia. Duodenitis with chronic inflammation. The previous EGD in May 2022 multiple gastric ulcers were found which looks like has healed on repeat endoscopy at this time. Negative for goblet cell metaplasia. Patient completed sucralfate. Currently on famotidine. With continued symptoms started on nifedipine 10 mg 3 times daily low-dose half 1 hour prior to meal. Indication, side effect, adverse effect discussed with the patient. Schedule EGD in October for repeat botulinum injection. Orders: Orders CBC W/Diff, Automated 3 Months E11.9 - Type 2 diabetes mellitus without complications, K22.70 - Rothman's esophagus without dysplasia, K76.0 - Fatty (change of) liver, not elsewhere classified, R13.19 - Other dysphagia Prothrombin Time w/INR 3 Months E11.9 - Type 2 diabetes mellitus without complications, K76.0 - Fatty (change of) liver, not elsewhere classified, R13.19 - Other dysphagia, R58 - Hemorrhage, not elsewhere classified Comprehensive Metabolic Profil 3 Months E11.9 - Type 2 diabetes mellitus without complications, K76.0 - Fatty (change of) liver, not elsewhere classifi ed, R13.19 - Other dysphagia CRP 3 Months E11.9 - Type 2 diabetes mellitus without complications, K76.0 - Fatty (change of) liver, not elsewhere classified, R13.19 - Other dysphagia Medications: New nifedipine Take one hour before meal 10 mg PO TID 1 month 90 caps 2RF Discontinued benzonatate Discontinued Reason: Discontinued by PCP/other physicians 100 mg PO BID-TID PRN 90 caps 3RF cough I have examined the patient and the H&P has been reviewed. There are no clinical changes since date of exam.
[2024-10-26] MEDS: 0.9% Normal Saline (Pres. free 10 ML Vial (12:29)
[2024-10-26] MEDS: Botulinum Toxin A 100 Units Vial IJ (12:29)
[2024-10-26] MEDS: 0.9% Saline Lock 10 ML Syringe IV (12:31)
--- NOTE | 2024-10-26 12:39 | OP.EGD_ITS ---
Patient Name: Valeria Ahmadi Procedure Date: 10/26/2024 12:23 PM Date of : 1960 Age: 64 Procedure: Upper GI endoscopy Indications: Esophageal dysphagia, Dysphagia Providers: Casey Summers DO Referring MD: Ryan Leyva MD Medicines: Monitored Anesthesia Care Patient Profile: This is a 64 year old female. Refer to note in patient chart for documentation of history and physical. Patient has symptoms of dysphagia with both liquids and solids. Complications: No immediate complications. Procedure: Pre-Anesthesia Assessment: - Prior to the procedure, a History and Physical was performed, and patient medications and allergies were reviewed. The patient is competent. The risks and benefits of the procedure and the sedation options and risks were discussed with the patient. All questions were answered and informed consent was obtained. Patient identification and proposed procedure were verified by the physician in the pre-procedure area. Mental Status Examination: alert and oriented. Airway Examination: normal oropharyngeal airway and neck mobility. Respiratory Examination: clear to auscultation. CV Examination: normal. Prophylactic Antibiotics: The patient does not require prophylactic antibiotics. Prior Anticoagulants: The patient has taken no anticoagulant or antiplatelet agents except for NSAID medication. ASA Grade Assessment: II - A patient with mild systemic disease. After reviewing the risks and benefits, the patient was deemed in satisfactory condition to undergo the procedure. The anesthesia plan was to use monitored anesthesia care (MAC). Immediately prior to administration of medications, the patient was re-assessed for adequacy to receive sedatives. The heart rate, respiratory rate, oxygen saturations, blood pressure, adequacy of pulmonary ventilation, and response to care were monitored throughout the procedure. The physical status of the patient was re-assessed after the procedure. After obtaining informed consent, the endoscope was passed under direct vision. Throughout the procedure, the patient's blood pressure, pulse, and oxygen saturations were monitored continuously. The Endoscope was introduced through the mouth, and advanced to the third part of duodenum. The upper GI endoscopy was accomplished without difficulty. The patient tolerated the procedure well. Scope In: 12:27:51 PM Scope Out: 12:35:25 PM Total Procedure Duration Time 0 hours 7 minutes 34 seconds Findings: Abnormal motility was noted in the esophagus. The cricopharyngeus was abnormal. There are extra peristaltic waves in the esophageal body. The distal esophagus/lower esophageal sphincter is spastic, but gives up passage to the endoscope. Primary and secondary peristaltic waves are noted. Area was successfully injected with 100 units botulinum toxin. A small hiatal hernia was present. Suspect gastroparesis due to retained gastric contents. No gross lesions were noted in the first portion of the duodenum. Impression: - Abnormal esophageal motility, suspicious for achalasia. Injected with botulinum toxin. - Small hiatal hernia. - Gastroparesis, secondary to diabetes mellitus type II. - No gross lesions in the first portion of the duodenum. - No specimens collected. Recommendation: - Discharge patient to home. - Resume previous diet. - Continue present medications. Procedure Code(s): --- Professional --- 05313, Esophagogastroduodenoscopy, flexible, transoral; with directed submucosal injection(s), any substance CPT copyright 2021 [employer] [place] [employer]. All rights reserved. The codes documented in this report are preliminary and upon deliverer pharmacy review may be revised to meet current compliance requirements. Casey Summers DO 10/26/2024 12:39:32 PM This report has been signed electronically. Number of Addenda: 0 Note Initiated On: 10/26/2024 12:23 PM
--- NOTE | 2024-10-26 12:40 | OP.CCLET_ITS ---
10/26/2024 Ryan Leyva MD [address] [place] [address] [place] [address] Re : Upper GI endoscopy procedure for Valeria Ahmadi Dear Dr. Leyva This procedure was performed on Saturday, October 26, 2024. My impressions and recommendations are as follows: Impressions : - Abnormal esophageal motility, suspicious for achalasia. Injected with botulinum toxin. - Small hiatal hernia. - Gastroparesis, secondary to diabetes mellitus type II. - No gross lesions in the first portion of the duodenum. - No specimens collected. Recommendations : - Discharge patient to home. - Resume previous diet. - Continue present medications. My findings are described in the full procedure note, which is enclosed. If I can be of further assistance, please feel free to contact me at . Sincerely, Casey Summers, 10/26/2024 12:39:32 PM This report has been signed electronically.
--- NOTE | 2024-10-26 12:46 | PCM.POST.ANE ---
Anesthesia: Postop Eval I Current Vital Signs Temperature: 97.3 F Pulse Rate: 90 Blood Pressure: 88/58 Respiratory Rate: 16 Pulse Ox: 97 Oxygen Delivery Method: Nasal Cannula Oxygen Flow Rate (L/min): 3 Assessment Airway patent: Yes Spontaneous unlabored respirations: Yes Mental status: Awake and Calm nausea: No Vomiting: No Anesthesia Complication: No Fluid Hydration Crystalloid volume administer (ml): 55 Total IV fluid infused: 55 Progress Note Post-operative progress note: profuse coughing intra-procedure and into PACU Anesthesia document: Postop Eval 1 completed: Yes
--- NOTE | 2024-10-26 13:04 | PCM.POSTANE2 ---
Anesthesia Postop Eval I Sum Postop Eval Completion status Anesthesia document: Postop Eval 1 completed: Yes Anesthesia Postop Eval I Summary Anesthesia Postop Eval I Summary: Anesthesia Postop Eval I: Assessment Summary Airway patent Yes 10/26/24 12:49 [email or web address] Spontaneous unlabored Yes 10/26/24 12:49 [email or web address] respirations Mental status Awake,Calm 10/26/24 12:49 [email or web address] nausea No 10/26/24 12:49 [email or web address] Vomiting No 10/26/24 12:49 [email or web address] Anesthesia Postop Eval I: Fluid Summary Crystalloid volume administer 55 10/26/24 12:49 [email or web address] (ml) Colloids volume administered ( ml) Blood Product volume administered (ml) Total IV fluid infused 55 10/26/24 12:49 [email or web address] Anesthesia Postop Eval I: Summary Notes Anesthesia Complication No 10/26/24 12:49 [email or web address] Anesthesia Complication Comment: Post-operative progress note profuse coughing 10/26/24 12:49 [email or web address] intra-procedure and into PACU Anesthesia: Postop Eval II Evaluation Mental status: Awake Pain Level: 0 nausea: No Vomiting: No
== END 2024-10-26 13:34 | disposition home or self-care (01) ==
LOC: EN 11:03 → AC 11:05
PROVIDERS: PCP Internal Medicine; Referring Provider Internal Medicine; Visit Provider Internal Medicine Gastroenterology
PROC: 0DJ08ZZ Inspection of Upper Intestinal Tract, Via Natural or Artificial Opening Endoscopic (ICD-10-PCS; CPT 43235; principal; 2024-10-26 11:55)
DX: K22.0 Achalasia of cardia (principal); J44.9 Chronic obstructive pulmonary disease, unspecified; E11.43 Type 2 diabetes mellitus with diabetic autonomic (poly)neuropathy; K44.9 Diaphragmatic hernia without obstruction or gangrene; I10 Essential (primary) hypertension; K21.9 Gastro-esophageal reflux disease without esophagitis; K75.81 Nonalcoholic steatohepatitis (NASH); E78.5 Hyperlipidemia, unspecified; K31.84 Gastroparesis; K22.70 Barrett's esophagus without dysplasia; R13.19 Other dysphagia; R58 Hemorrhage, not elsewhere classified; Z79.899 Other long term (current) drug therapy
CPT/HCPCS: 43236; A4216; J0585; J2405; J3490

== ENCOUNTER → 2024-12-10 | Outpatient (CLI) | payer MEDICARE, SELFPAY ==
--- NOTE | 2024-12-10 15:53 | MRI_ITS ---
EXAM: MR HEAD WITHOUT AND WITH INTRAVENOUS CONTRAST CLINICAL INDICATION: Syncope. TECHNIQUE: Multiplanar and multisequence MR images of the brain were obtained without and with intravenous contrast. CONTRAST: IV 20cc clariscan COMPARISON: CT brain 10/07/2005 FINDINGS: BRAIN AND EXTRA-AXIAL SPACES: Normal. No intra- or extra-axial hemorrhage. No evidence of acute infarct. No intracranial mass or mass effect. Normal preservation of the morris/white matter interface. Posterior fossa structures are unremarkable. Ventricles are appropriate for age. No hydrocephalus. Basal cisterns are patent. No abnormal contrast enhancement. SELLA: Normal. Normal sella turcica, pituitary gland, infundibular stalk, optic chiasm and hypothalamus. AUDITORY SYSTEM: Normal. The internal auditory canals are patent. BONES/JOINTS: Intact calvarium. SINUSES: Unremarkable as visualized. Clear. MASTOID AIR CELLS: Clear. ORBITS: Unremarkable as visualized. Both globes, extraocular muscles, optic nerves and retrobulbar fat appear unremarkable. VASCULATURE: Unremarkable as visualized. Normal flow voids in the major intracranial circulation. MRI/Brain W/WO Contrast IMPRESSION: Normal MRI brain without and with intravenous contrast. Electronically Signed: Jose Rosales MD at 16:54 EST ,
== END | disposition home or self-care (01) ==
LOC: MRI 15:48
PROVIDERS: PCP Internal Medicine; Referring Provider Internal Medicine; Visit Provider Internal Medicine
DX: R55 Syncope and collapse (principal)
CPT/HCPCS: 70553; A9575

== ENCOUNTER 2025-01-20 13:44 | Inpatient (IN) | payer MEDICARE, SELFPAY ==
[2025-01-20] VITALS (7 sets, daily range): BP systolic 92–134; BP diastolic 50–74; PULSE 73–84; RESP 16–18; TEMP 36.6–36.9; O2SAT 94–98; BMI 40.4
--- NOTE | 2025-01-20 13:49 | CT_ITS ---
PROCEDURE: SPINE CERVICAL WITHOUT CONTRAS REASON FOR EXAM: Injury due to fall. TECHNIQUE: Cervical spine CT without contrast. COMPARISON: None. FINDINGS: Alignment: Straightening of the normal cervical lordosis. Vertebrae: No acute fracture seen. Soft Tissues: Unremarkable C1-2: Normal alignment. Dens appears intact. C2-3: Mild degree of disc space narrowing. No evidence of fracture. Facet joint osteoarthritis and hypertrophy. No significant neural foraminal stenosis seen. C3-4: Minimal anterior listhesis of C3 on C4 due to facet joint osteoarthritis and hypertrophy. Moderate degree of right neural foraminal stenosis. C4-5: Marked degree of disc space narrowing. Spondylosis. Uncovertebral arthrosis. Marked degree of right neural foraminal stenosis. C5-6: Marked degree of disc space narrowing. Spondylosis. Uncovertebral arthrosis. Mild degree of bilateral neural foraminal stenosis. C6-7: Marked degree of disc space narrowing. Mild degree of bilateral neural foraminal stenosis. C7-T1: Unremarkable CT/Spine Cervical without Contras IMPRESSION: NO ACUTE CERVICAL FRACTURE. One or more dose reduction techniques were used (e.g., Automated exposure contr ol, adjustment of the mA and/or kV according to patient size, use of iterative reconstruction technique). Reading Location: [facility]
--- NOTE | 2025-01-20 13:50 | EKG12_ITS ---
Test Reason : STROKE ALERT Blood Pressure : */* mmHG Vent. Rate : 71 BPM Atrial Rate : 71 BPM P-R Int : 180 ms QRS Dur : 88 ms QT Int : 424 ms P-R-T Axes : 38 6 34 degrees QTcB Int : 460 ms Normal sinus rhythm Normal ECG Confirmed by MARIBEL DUMONT ([id number]), online editor FANNIE LEE ([id number]) on 01/24/2025 7:12:52 AM Referred By: Maris Bland Confirmed By: MARIBEL DUMONT
--- NOTE | 2025-01-20 13:50 | CT_ITS ---
EXAM: CT of the head without contrast, with sagittal and coronal reconstructed images. CLINICAL HISTORY: Falls, altered mental status. COMPARISON: Brain MRI 12/10/2024. TECHNIQUE: CT of the head without contrast, with sagittal and coronal reconstructed images. FINDINGS: No intracranial hemorrhage, mass, or mass effect is seen. Ventricles appear symmetric and within the normal range. No extra-axial fluid collection is noted. No orbital pathology is seen. No fracture site is evident. The visualized portions of the paranasal sinuses appear clear, as do the right mastoid air cells. Opacification of left mastoid air cells is noted, with sclerotic response, likely due to a chronic process. CT/Brain/Head without Contrast IMPRESSION: No intracranial hemorrhage or other acute process is seen. Reading Location: [address]
[2025-01-20] MEDS: 0.9% Normal Saline (1000mL) 1,000 ML 1000 ML IV (14:04)
[2025-01-20 14:22] LABS: Mucous, Urine 0 SEEN /hpf (<or=2+)
[2025-01-20 14:29] LABS: Color, Urine Yellow (Yellow); Glucose, Dipstick Normal (Normal); Ketone-Dipstick Negative (Negative); Leukocyte Esterase-Dipstick Negative /ul (Negative); Nitrite-Dipstick Positive (Negative); Occult Blood-Urine 10 /ul (Negative); Protein-Dipstick Negative (Negative); Urine Bilirubin Dipstick Negative (Negative); Urine Clarity Clear (Clear); Urine Urobilinogen Normal (Normal)
[2025-01-20 14:29] LABS: Absolute Lymphocyte Count 3.85 X10^3/uL (0.83-4.51); Absolute Neutrophil Count 5.3 X10^3/uL (2.0-7.7); Basophil# 0.12 X10^3/uL; Basophil% 1.1 % (0-1); Eosinophil# 0.39 X10^3/uL; Eosinophils% 3.7 % (0-5); Hematocrit 41.1 % (37-47); Hemoglobin 13.4 g/dL (12.0-15.0); Lymphocyte # 3.85 X10^3/ul (0.83-4.51); Lymphocyte % 36.3 % (19-41); Mean Corp Hgb Conc 32.6 g/dL (32-36); Mean Corpuscular Volume 95.1 fL (81-99); Mean Platelet Vol. 9.7 fl (6.2-12.0); Monocyte% 8.5 % (0-10); NRBC Flagged by Analyzer 0 % (0-5); Neutrophil # 5.27 X10^3/uL (2.7-7.7); Neutrophil % 49.6 % (47-70); Platelet Count 291 K/mm3 (150-450); RBC Distribution Width CV 12.9 % (11.6-14.6); RBC Distribution Width SD 45.1 fl (35.1-43.9); Red Blood Count 4.32 M/mm3 (4.2-5.4); White Blood Count 10.6 K/mm3 (4.4-11.0)
[2025-01-20 14:35] LABS: Bacteria 3+ /hpf (None Seen); Red Blood Cells-Urine 0-5 SEEN /hpf (0-5); White Blood Cells 0-5 SEEN /hpf (0-5)
[2025-01-20 14:36] LABS: Hyaline Cast 0-5 SEEN /lpf (0-5); Squamous Epithelial Cells - UA 0-5 SEEN /hpf (5-10)
[2025-01-20 14:37] LABS: AST(SGOT) 25 U/L (15-37); Alanine Aminotransfer ALT/SGPT 29 U/L (13-56); Albumin, Serum 3.6 g/dL (3.2-5.0); Alkaline Phosphatase 64 U/L (45-117); Anion Gap 6 (5-15); BUN 12 mg/dL (7-18); BUN/Creat Ratio 11.8 RATIO (10-20); CPK Total, Creatine Kinase 90 U/L (26-192); Calcium,Total 9.6 mg/dL (8.5-10.1); Chloride 104 mmol/L (98-107); Creatinine, Serum 1.02 mg/dL (0.55-1.02); EST Glomerular Filtration Rate 58 mL/min (>60); Est Glom Filt Rate - Afr Amer 70 mL/min (>60); Estimated Creatinine Clearance 67.95 ml/min; Globulin 3.7 g/dL (2.2-4.2); Glucose 98 mg/dL (74-106); Potassium 3.7 mmol/L (3.5-5.1); Protein, Total 7.3 g/dL (6.4-8.2); Sodium Level 138 mmol/L (136-145)
--- NOTE | 2025-01-20 14:45 | RAD_ITS ---
PROCEDURE: CHEST 1 VIEW (PORTABLE) REASON FOR EXAM: Altered mental status. TECHNIQUE: Frontal view of the chest. COMPARISON: 11/22/2019. FINDINGS: Lungs are clear of pneumonia and congestion. No pleural effusions, thickening, or pneumothorax. Heart and mediastinum are normal. Aorta is atherosclerotic and tortuous No hilar masses. Old healed granulomatous changes. Bones and soft tissues are unremarkable. Cardiac monitoring leads overlie the chest wall. RAD/Chest 1 View (Portable) IMPRESSION: No active cardiopulmonary disease. Reading Location: [facility]
--- NOTE | 2025-01-20 14:56 | EX.ED.DYSGE1 ---
HPI History of Present Illness Chief Complaint: Neuro S/Sx Informant: patient, family and EMS Narrative Narrative: Patient is a 64-year-old female with history of Cornelius, fibromyalgia, type 2 diabetes mellitus, chronic pain, anxiety, nonrheumatic mitral valve prolapse, hypertension hyperlipidemia presenting via EMS for altered mental status and fall. Patient lives at home. She reportedly was confused this morning but after further conversation with her daughters patient has had increased confusion for the past 2 weeks. She is also had frequent falls (falling every other day). Daughter states that she will sometimes give answers that do not make any sense. She had an MRI recently and saw neurology within the last month for the daughter think is workup of the symptoms. This morning her daughter was at home with her when the patient was just walking and fell. She was talking but not making any sense. When EMS arrived they noticed that she had garbled speech and inappropriate response to questions. They did call a stroke alert. By the time they arrived in the emergency room the patient's speech has normalized but she remains confused. EMS blood sugar was 100. Patient currently has no complaints. She does have a history of urinary tract infections. She denies any urinary symptoms. She is not on any blood thinners. Daughters are not sure if she has been on any new medications that could be causing increased confusion or falls. She apparently was post to have an appointment yesterday but had canceled it and told her mother (who was going to take her) that she canceled it because of her ex-'s car. The daughter states this did not make any sense. Chart review shows that patient saw neurology on 10/14/2024 for neck pain and tension headaches. Her amitriptyline was increased to 100 mg every night and she has baclofen 10 mg 3 times daily as needed prescribed. She takes tizanidine nightly. MRI on 12/10/2024 of the brain with and without contrast obtained because of syncope was normal. [facility] Medical History (Updated 01/20/25 @ 17:[address] Maris Bland, ) Recurrent falls Pain Syncope and collapse Headache Type 2 diabetes mellitus Borderline type 2 diabetes mellitus Burning with urination Pharyngitis Wears partial dentures CPAP (continuous positive airway pressure) dependence COPD (chronic obstructive pulmonary disease) Chronic cough Bronchitis Ulcer Infection with methicillin-resistant Staphylococcus aureus (MRSA) Insomnia Breast cancer screening Elevated gastrin level History of stress test Cardiology follow-up encounter Hypergastrinemia Fatty liver Abdominal pain Chronic diarrhea Osteoporosis Hypersomnolence Swallowing disorder Osteopenia with high risk of fracture Wears hearing aid Wears glasses Cancer High cholesterol Restless legs Gastric reflux Non-smoker History of edema History of echocardiogram Normal stress echocardiogram History of irregular heartbeat Incidental lung nodule, > 3mm and < 8mm Bilateral sacroiliitis Sacroiliac joint pain Recurrent UTI Post-menopausal Educated about COVID-19 virus infection Cervical radiculopathy Routine health maintenance Epigastric pain Back pain Difficulty balancing Knee pain Diarrhea Fatigue Diabetes History of suicide attempt Anxiety History of MRSA infection Potassium (K) deficiency Arthritis History of gout History of skin cancer Obesity (BMI 30-39.9) Nonrheumatic mitral valve prolapse Hyperlipidemia Hypertension Fibromyalgia Depression Rheumatoid arthritis Home Medications ?Medication ?Instructions ?Recorded ?Last Taken ?Type L.acidophilus,gasseri,rhamnos-B.bifidum,long 1 cap PO BID 12/06/21 01/19/25 History 1.5 billion cell capsule (Probiotic Digestive Support (Lacto,Bifido)) nabumetone 500 mg tablet 500 mg PO BID PRN pain (scale 03/11/24 01/19/25 History score 1-3) spacer #1 ea 03/11/24 Unknown Rx blood-glucose meter (FreeStyle #1 ea 06/17/24 Unknown Rx Lite Meter kit) denosumab 60 mg/mL subcutaneous 60 mg subcut [id number] #1 mL 10/04/24 08/31/24 Rx syringe (Prolia) blood sugar diagnostic (FreeStyle #100 ea 10/07/24 Unknown Rx Lite Strips) cholecalciferol (vitamin D3) 1,250 1,250 mcg PO QWEEK #14 caps 10/07/24 01/13/25 Rx mcg (50,000 unit) capsule metoprolol tartrate 50 mg tablet 50 mg PO BID #180 TABLETS 10/07/24 01/19/25 Rx spironolactone 50 mg tablet 50 mg PO QAM #90 tabs 10/07/24 01/19/25 Rx blood sugar diagnostic (OneTouch #200 ea 10/12/24 Unknown Rx Verio test strips) cetirizine 10 mg tablet 10 mg PO DAILY PRN allergy 10/12/24 01/17/25 Rx symptoms #90 tabs famotidine 40 mg tablet 40 mg PO DAILY 3 months #90 tabs 10/12/24 01/19/25 Rx fluticasone furoate 200 1 inh inhalation QDAY #60 ea 10/13/24 01/19/25 Rx mcg-vilanterol 25 mcg/dose inhalation powder (Breo Ellipta) albuterol sulfate 90 mcg/actuation 2 puff inhalation Q4H PRN 10/14/24 Unknown Rx aerosol inhaler shortness of breath or wheezing #8.5 grams amitriptyline 100 mg tablet 100 mg PO QHS #30 tabs 10/14/24 01/19/25 Rx baclofen 10 mg tablet 10 mg PO TID PRN muscle 10/14/24 01/19/25 Rx pain/muscle spasm #90 tabs lancets 28 gauge (FreeStyle #200 ea 10/15/24 Unknown Rx Lancets) venlafaxine 150 mg 150 mg PO QHS depression 10/22/24 01/19/25 History capsule,extended release 24 hr fluticasone propionate 50 2 spray intranasal DAILY #16 grams 11/05/24 01/19/25 Rx mcg/actuation nasal spray,suspension montelukast 10 mg tablet 10 mg PO QPM #30 tabs 11/05/24 01/19/25 Rx Onetouch Verio Lancing Device #200 ea 12/08/24 Unknown Rx zolpidem 10 mg tablet 10 mg PO QHS PRN insomnia #30 tabs 12/08/24 01/19/25 Rx metformin 500 mg tablet,extended 500 mg PO QDAY #30 tabs 01/05/25 01/19/25 Rx release 24 hr nifedipine 10 mg capsule 10 mg PO BID 01/20/25 01/19/25 History rosuvastatin 10 mg tablet 10 mg PO DAILY 01/20/25 01/19/25 History Allergy/AdvReac Type Severity Reaction Status Date / Time paroxetine (From Paxil) Allergy suicidal Verified 01/20/25 13:56 thoughts bupropion (From Wellbutrin) AdvReac Severe suicidal Verified 01/20/25 13:56 thoughts oxycodone HCl (From Percocet) AdvReac Itching Verified 01/20/25 13:56 Penicillins AdvReac YEAST Verified 01/20/25 13:56 INFECTION Family History Grandfather CAD (coronary artery disease) Heart disease Myocardial infarction Hypertension Hyperlipemia Anxiety and depression Melanoma Diabetes Grandmother Diabetes Arthritis Glaucoma Breast cancer Father Alcoholism Respiratory disease Sister Heart disease Surgical History History of esophagogastroduodenoscopy (EGD) Hx of right cataract extraction History of esophagogastroduodenoscopy (EGD) Hx of kyphoplasty History of cardiac catheterization History of right knee joint replacement History of left heart catheterization (~10/04/11) Status post cataract extraction and insertion of intraocular lens left ankle surgery History of appendectomy Hx of cholecystectomy History of hysterectomy H/O repair of right rotator cuff (~08/2017) Social History (Updated 01/20/25 @ 14:05 by Missy Castro) household members: none housing: house Smoking Status: Never smoker second hand exposure: No alcohol intake: current alcohol intake frequency: holidays/special occasions only substance use type: does not use what type of physical activity do you participate in: none anegla/restorationism: Rastafari seatbelt use: always ROS ROS ED ROS Narrative Review of systems is decree secondary to confusion. Constitutional Constitutional ED: Denies chills or fever(s) Eyes Eyes: Denies change in vision ENT ENT ED: Denies sore throat Cardiovascular Cardiovascular: Denies chest pain Respiratory/Chest Respiratory/Chest: Denies cough Musculoskeletal Musculoskeletal: Denies arthralgias or myalgias Neurologic Neurologic: Reports weakness and other Details: Multiple falls, confusion EXAM Physical Exam Const Vital Signs: 01/20/25 13:50 01/20/25 15:45 Temperature 98.3 F Temperature Source Temporal Pulse Rate 79 73 Respiratory Rate 18 16 Blood Pressure 134/74 H 106/62 Blood Pressure Mean 94 76 Pulse Ox 94 98 Oxygen Delivery Method Room Air Positive well nourished and well developed General Appearance ED: well developed and NAD HEENT HEENT Narrative: Very dry mucosal membranes. No signs of facial trauma. No hemotympanum. No signs of basilar skull fracture. No facial droop appreciated. Neck supple General: Negative for tenderness Chest Wall inspection of chest normal and palpation of chest normal Resp normal respiratory effort and clear to auscultation bilaterally Cardio regular rate, regular rhythm and no murmurs GI normal to inspection, nondistended, normoactive bowel sounds and non-tender Extremity normal to inspection General Extremety ED: Negative for edema General Extremity: Negative for edema Neuro CN's II-XII intact bilaterally and no sensory deficits noted Neuro Narrative: Patient generally confused Sensorium / Orientation: alert and orientation impaired Motor Exam: strength 5/5 throughout Skin no rashes or lesions noted Skin Narrative: Scattered abrasions that are healing over the knees from prior fall MDM MDM MDM Narrative Medical decision making narrative: Patient evaluated for altered mental status and frequent falls. Initially stroke alert was called however patient is not any focal neurologic deficits on exam. She is confused but more encephalopathic. Stroke alert is canceled. Will still obtain CT for concern of intracranial process. CT of the neck is obtained as well because of falls and to rule out cervical spine injury. Metabolic and infectious workup is obtained. CBC and CMP largely normal. Urinalysis shows positive nitrates with 3+ bacteria on straight cath but no white blood cells. Will send for culture. She has a history of frequent UTIs had a culture positive so we will start her on Rocephin (prior culture sensitive to this). The CT of the brain does not show any acute process. Chest x-ray viewed by myself as well as radiology does not show any acute process. Question if patient could have a component of polypharmacy causing encephalopathy versus infectious. It is possible this could be a stroke with sound like this been going on for at least 2 weeks now. Case will be discussed with hospitalist for admission. History & Record Review Additional record(s) reviewed:: Prior outpatient record (See HPI) Lab Data Attestation: I reviewed the patient's lab results. Labs: Laboratory Results - last 24 hr 01/20/25 01/20/25 13:55 14:16 WBC 10.6 RBC 4.32 Hgb 13.4 Hct 41.1 MCV 95.1 MCH 31.0 MCHC 32.6 RDW Std Deviation 45.1 H RDW Coeff of Vijaya 12.9 Plt Count 291 MPV 9.7 Immature Gran % (Auto) 0.800 Neut % (Auto) 49.6 Lymph % (Auto) 36.3 [place] % (Auto) 8.5 Eos % (Auto) 3.7 Baso % (Auto) 1.1 H Absolute Neuts (auto) 5.3 Absolute Lymphs (auto) 3.85 Nucleated RBC % 0 Sodium 138 Potassium 3.7 Chloride 104 Carbon Dioxide 28.0 Anion Gap 6 BUN 12 Creatinine 1.02 Estim Creat Clear Calc 67.95 Est GFR (MDRD) Af Amer 70 Est GFR (MDRD) Non-Af 58 L BUN/Creatinine Ratio 11.8 Glucose 98 Calcium 9.6 Total Bilirubin 1.20 H AST 25 ALT 29 Alkaline Phosphatase 64 Total Creatine Kinase 90 Total Protein 7.3 Albumin 3.6 Globulin 3.7 Albumin/Globulin Ratio 1.0 Urine Color Yellow Urine Clarity Clear Urine pH 5.0 Ur Specific [place] 1.010 Urine Protein Negative Urine Glucose (UA) Normal Urine Ketones Negative Urine Occult Blood 10 H Urine Nitrite Positive H Urine Bilirubin Negative Urine Urobilinogen Normal Ur Leukocyte Esterase Negative Urine RBC 0-5 SEEN Urine WBC 0-5 SEEN Ur Squamous Epith Cells 0-5 SEEN Urine Bacteria 3+ Hyaline Casts 0-5 SEEN Urine Mucus 0 SEEN Radiography Diagnostic Testing: Clinical Impression(s) from Imaging Studies Cervical Spine CT 01/20/25 13:49 IMPRESSION: NO ACUTE CERVICAL FRACTURE. One or more dose reduction techniques were used (e.g., Automated exposure control, adjustment of the mA and/or kV according to patient size, use of iterative reconstruction technique). Reading Location: [id number] Brain CT 01/20/25 13:50 IMPRESSION: No intracranial hemorrhage or other acute process is seen. Reading Location: [address] Chest X-Ray 01/20/25 14:45 IMPRESSION: No active cardiopulmonary disease. [facility] Rhythm Strip Rhythm Strip: Sinus Rhythm Rate: 71 Ectopy: None EKG Initial EKG: Attestation: I personally reviewed and interpreted this EKG as follows: Interpretation: Sinus Rhythm Comments: Normal sinus rhythm at a rate of 71 bpm Normal axis Normal intervals Normal ST segments Management Discussion w/another healthcare provider: Hospitalist Discharge Plan Triage Chief Complaint: Neuro S/Sx ED Provider: Maris Bland Dx/Rx/DC Orders Clinical Impression: Encephalopathy, Falls frequently, Acute UTI Prescriptions: No Action Probiotic Digest(Lacto,Bifido) 1.5 billion cell capsule 1 cap PO BID nabumetone 500 mg tablet 500 mg PO BID PRN (Reason: pain (scale score 1-3)) (DME) spacer See Rx Instructions .ROUTE .MEDSUPPLY Qty: 1 0RF Rx Instructions: As directed (DME) blood-glucose meter [FreeStyle Lite Meter] Kit See Rx Instructions .MEDSUPPLY Qty: 1 0RF Rx Instructions: As directed, check blood glucose daily for type 2 DM metformin 500 mg tablet extended release 24 hr 500 mg PO QDAY Qty: 30 1RF baclofen 10 mg tablet 10 mg PO TID PRN (Reason: muscle pain/muscle spasm) Qty: 90 5RF amitriptyline 100 mg tablet 100 mg PO QHS Qty: 30 3RF rosuvastatin 10 mg tablet 10 mg PO DAILY Rx Instructions: PT CURRENTLY TAKING 10MG INCREASED TO 20MG BY DR JALLOH BUT PT HAS NOT INCREASED AT HOME nifedipine 10 mg capsule 10 mg PO BID Rx Instructions: Take one hour before meal venlafaxine 150 mg capsule,extended release 24hr 150 mg PO QHS Zenpep 40,000-126,000- 168,000 unit capsule,delayed release(DR/EC) See Rx Instructions PO .COMPLEX Qty: 360 5RF Rx Instructions: take 1-2 capsules with snacks, take 2-3 capsules with meals Prolia 60 mg/mL syringe 60 mg subcut [id number] Qty: 1 2RF (DME) FreeStyle Lite Strips Strip See Rx Instructions .MEDSUPPLY Qty: 100 3RF Rx Instructions: check blood glucose daily for type 2 DM cholecalciferol (vitamin D3) 1,250 mcg (50,000 unit) capsule 1,250 mcg PO QWEEK Qty: 14 3RF metoprolol tartrate 50 mg tablet 50 mg PO BID Qty: 180 3RF spironolactone 50 mg tablet 50 mg PO QAM Qty: 90 1RF (DME) OneTouch Verio test strips Strip See Rx Instructions .Route Qty: 200 3RF Rx Instructions: Check Blood Glucose BID famotidine 40 mg tablet 40 mg PO DAILY 90 Days Qty: 90 3RF cetirizine 10 mg tablet 10 mg PO DAILY PRN (Reason: allergy symptoms) Qty: 90 0RF fluticasone furoate-vilanterol [Breo Ellipta] 200-25 mcg/dose blister with device 1 inh inhalation QDAY Qty: 60 6RF Rx Instructions: after inhalation, rinse mouth with water and spit out; do not swallow albuterol sulfate 90 mcg/actuation HFA aerosol inhaler 2 puff inhalation Q4H PRN (Reason: shortness of breath or wheezing) Qty: 8.5 6RF Rx Instructions: administer with spacer (DME) lancets [FreeStyle Lancets] 28 gauge misc See Rx Instructions .MEDSUPPLY Qty: 200 10RF Rx Instructions: check blood glucose daily for type 2 DM fluticasone propionate 50 mcg/actuation spray,suspension 2 spray intranasal DAILY Qty: 16 11RF montelukast 10 mg tablet 10 mg PO QPM Qty: 30 11RF zolpidem 10 mg tablet 10 mg PO QHS PRN (Reason: insomnia) Qty: 30 0RF (DME) Onetouch Verio Lancing Device See Rx Instructions .Route .MEDSUPPLY Qty: 200 10RF Rx Instructions: As directed Primary Care Provider: Ryan Leyva Referrals: Ryan Leyva MD [Primary Care Provider] - Print Language: Azeri Disposition Disposition: Acute Care Hospital [facility]
[2025-01-20] MEDS: Ceftriaxone 1 GM/50 ML BAG IV (16:52)
--- NOTE | 2025-01-20 17:15 | PCM.HP.STD ---
HPI - General General Date of Admission: 01/20/25 Date of Service: 01/20/25 Chief Complaint: Confusion and falls HPI Narrative NATALIA MARQUEZ, is a 64-year-old female history of diabetes, KALEE, COPD, depression presented [facility] ED 01/20/2025 for altered mental status and fall. Patient lives at home and reportedly was more confused over the past 2 weeks but especially this morning, also having frequent falls. She had an MRI recently and still neuro within the past month which was suspected to be workup for the symptoms. This a.m. daughter went to her house and saw the patient was walking and she fell. She was talking but not making any sense and had some garbled speech so she was a stroke alert. In the ED patient's speech normalized but she remained confused. Patient's presenting vitals were temperature of 98.3 with a blood pressure 134/74 and 94% on room air. CT of the head and cervical spine with no acute process and x-ray with no infiltrate. Patient was noted to have nitrate and bacteria in her UA with history of UTIs and was started on Rocephin and hospitalist contacted for admission. Patient evaluated at bedside with family present, patient's had some problems with headaches for which she had an outpatient MRI which was unremarkable to the best of their knowledge. They do report some intermittent confusion over the past month which they query if it has to do with medications or UTI or both. She has also been having falls over the past couple of weeks and intermittent hallucinations, her answers are often inappropriate based on the context and she intermittently will have garbled speech. Hallucinations have been grossly over the past 1 week. Other than the falls, confusion, hallucinations patient reports a chronic cough but no other new or acute complaints. Denies any fever. Does endorse having KALEE but is noncompliant with her CPAP. [facility] Medical History (Updated 01/20/25 @ 17:[address] Maris Bland, ) Abdominal pain Anxiety Arthritis Back pain Bilateral sacroiliitis Borderline type 2 diabetes mellitus Breast cancer screening Bronchitis Burning with urination Cancer Cardiology follow-up encounter Cervical radiculopathy Chronic cough Chronic diarrhea COPD (chronic obstructive pulmonary disease) CPAP (continuous positive airway pressure) dependence Depression Diabetes Diarrhea Difficulty balancing Educated about COVID-19 virus infection Elevated gastrin level Epigastric pain Fatigue Fatty liver Fibromyalgia Gastric reflux Headache High cholesterol History of echocardiogram History of edema History of gout History of irregular heartbeat History of MRSA infection History of skin cancer History of stress test History of suicide attempt Hypergastrinemia Hyperlipidemia Hypersomnolence Hypertension Incidental lung nodule, > 3mm and < 8mm Infection with methicillin-resistant Staphylococcus aureus (MRSA) Insomnia Knee pain Non-smoker Nonrheumatic mitral valve prolapse Normal stress echocardiogram Obesity (BMI 30-39.9) Osteopenia with high risk of fracture Osteoporosis Pain Pharyngitis Post-menopausal Potassium (K) deficiency Recurrent falls Recurrent UTI Restless legs Rheumatoid arthritis Routine health maintenance Sacroiliac joint pain Swallowing disorder Syncope and collapse Type 2 diabetes mellitus Ulcer Wears glasses Wears hearing aid Wears partial dentures Home Medications ?Medication ?Instructions ?Recorded ?Last Taken ?Type L.acidophilus,gasseri,rhamnos-B.bifidum,long 1 cap PO BID 12/06/21 01/19/25 History 1.5 billion cell capsule (Probiotic Digestive Support (Lacto,Bifido)) nabumetone 500 mg tablet 500 mg PO BID PRN pain (scale 03/11/24 01/19/25 History score 1-3) spacer #1 ea 03/11/24 Unknown Rx blood-glucose meter (FreeStyle #1 ea 06/17/24 Unknown Rx Lite Meter kit) denosumab 60 mg/mL subcutaneous 60 mg subcut [id number] #1 mL 10/04/24 08/31/24 Rx syringe (Prolia) blood sugar diagnostic (FreeStyle #100 ea 10/07/24 Unknown Rx Lite Strips) cholecalciferol (vitamin D3) 1,250 1,250 mcg PO QWEEK #14 caps 10/07/24 01/13/25 Rx mcg (50,000 unit) capsule metoprolol tartrate 50 mg tablet 50 mg PO BID #180 TABLETS 10/07/24 01/19/25 Rx spironolactone 50 mg tablet 50 mg PO QAM #90 tabs 10/07/24 01/19/25 Rx blood sugar diagnostic (OneTouch #200 ea 10/12/24 Unknown Rx Verio test strips) cetirizine 10 mg tablet 10 mg PO DAILY PRN allergy 10/12/24 01/17/25 Rx symptoms #90 tabs famotidine 40 mg tablet 40 mg PO DAILY 3 months #90 tabs 10/12/24 01/19/25 Rx fluticasone furoate 200 1 inh inhalation QDAY #60 ea 10/13/24 01/19/25 Rx mcg-vilanterol 25 mcg/dose inhalation powder (Breo Ellipta) albuterol sulfate 90 mcg/actuation 2 puff inhalation Q4H PRN 10/14/24 Unknown Rx aerosol inhaler shortness of breath or wheezing #8.5 grams amitriptyline 100 mg tablet 100 mg PO QHS #30 tabs 10/14/24 01/19/25 Rx baclofen 10 mg tablet 10 mg PO TID PRN muscle 10/14/24 01/19/25 Rx pain/muscle spasm #90 tabs lancets 28 gauge (FreeStyle #200 ea 10/15/24 Unknown Rx Lancets) venlafaxine 150 mg 150 mg PO QHS depression 10/22/24 01/19/25 History capsule,extended release 24 hr fluticasone propionate 50 2 spray intranasal DAILY #16 grams 11/05/24 01/19/25 Rx mcg/actuation nasal spray,suspension montelukast 10 mg tablet 10 mg PO QPM #30 tabs 11/05/24 01/19/25 Rx Onetouch Verio Lancing Device #200 ea 12/08/24 Unknown Rx zolpidem 10 mg tablet 10 mg PO QHS PRN insomnia #30 tabs 12/08/24 01/19/25 Rx metformin 500 mg tablet,extended 500 mg PO QDAY #30 tabs 01/05/25 01/19/25 Rx release 24 hr nifedipine 10 mg capsule 10 mg PO BID 01/20/25 01/19/25 History rosuvastatin 10 mg tablet 10 mg PO DAILY 01/20/25 01/19/25 History Allergy/AdvReac Type Severity Reaction Status Date / Time paroxetine (From Paxil) Allergy suicidal Verified 01/20/25 13:56 thoughts bupropion (From Wellbutrin) AdvReac Severe suicidal Verified 01/20/25 13:56 thoughts oxycodone HCl (From Percocet) AdvReac Itching Verified 01/20/25 13:56 Penicillins AdvReac YEAST Verified 01/20/25 13:56 INFECTION Family History Grandfather CAD (coronary artery disease) Heart disease Myocardial infarction Hypertension Hyperlipemia Anxiety and depression Melanoma Diabetes Grandmother Diabetes Arthritis Glaucoma Breast cancer Father Alcoholism Respiratory disease Sister Heart disease Surgical History H/O repair of right rotator cuff (~08/2017) History of appendectomy History of cardiac catheterization History of esophagogastroduodenoscopy (EGD) History of esophagogastroduodenoscopy (EGD) History of hysterectomy History of left heart catheterization (~10/04/11) History of right knee joint replacement Hx of cholecystectomy Hx of kyphoplasty Hx of right cataract extraction left ankle surgery Status post cataract extraction and insertion of intraocular lens Social History (Updated 01/20/25 @ 14:05 by Missy Castro) household members: none housing: house Smoking Status: Never smoker second hand exposure: No alcohol intake: current alcohol intake frequency: holidays/special occasions only substance use type: does not use what type of physical activity do you participate in: none angela/mormonism: Denominational seatbelt use: always ROS ROS Narrative General: Denies fever/chills HENT: Does have some headaches which are not, denies stuffy nose, denies sore throat EYES: Denies changes in vision Resp: Denies cough, denies shortness of breath Cardiac: Denies chest pain GI: Denies abdominal pain, denies changes in bowel, denies nausea/vomiting : Denies changes in urination Extremity: Denies swelling MSK: Patient with multiple falls Neuro: Denies any numbness/tingling Heme: Denies any bleeding or bruising Skin: Denies rashes Psychiatric: Patient with intermittent confusion, garbled speech, hallucinations Vital Signs Vital Signs Vital Signs: 01/20/25 13:50 01/20/25 15:45 01/20/25 17:00 Temperature 98.3 F Temperature Source Temporal Pulse Rate 79 73 80 Respiratory Rate 18 16 Blood Pressure 134/74 H 106/62 108/50 L Blood Pressure Mean 94 76 69 Pulse Ox 94 98 94 Oxygen Delivery Method Room Air Weight Weight: 110.2 kg Body Mass Index (BMI) 40.4 Physical Exam Narrative General: Alert, no apparent distress HEENT: Atraumatic, normocephalic Eyes: Anicteric, normal conjunctiva, extraocular movements intact, pupils equal Neck: Supple Respiratory: Clear to auscultation bilaterally, normal respiratory effort Cardiovascular: Regular rate and rhythm GI: Soft, nontender, nondistended Extremities: No edema Musculoskeletal: Strength 5 out of 5 in right upper extremity, 5 out of 5 left upper extremity, 5 out of 5 right lower extremity, 5 out of 5 left lower extremity Neuro: No overt focal neurological deficits, cranial nerves II through XII intact, [id number] without significant difficulty bilaterally Skin: No rashes appreciated Psych: Cooperative and pleasant Results Lab / Micro Data 01/20/25 13:55 01/20/25 13:55 Labs: Laboratory Results - last 24 hr 01/20/25 13:55: WBC 10.6, RBC 4.32, Hgb 13.4, Hct 41.1, MCV 95.1, MCH 31.0, MCHC 32.6, RDW Std Deviation 45.1 H, RDW Coeff of Vijaya 12.9, Plt Count 291, MPV 9.7, Immature Gran % (Auto) 0.800, Neut % (Auto) 49.6, Lymph % (Auto) 36.3, [place] % (Auto) 8.5, Eos % (Auto) 3.7, Baso % (Auto) 1.1 H, Absolute Neuts (auto) 5.3, Absolute Lymphs (auto) 3.85, Nucleated RBC % 0, Sodium 138, Potassium 3.7, Chloride 104, Carbon Dioxide 28.0, Anion Gap 6, BUN 12, Creatinine 1.02, Estim Creat Clear Calc 67.95, Est GFR (MDRD) Af Amer 70, Est GFR (MDRD) Non-Af 58 L, BUN/Creatinine Ratio 11.8, Glucose 98, Calcium 9.6, Total Bilirubin 1.20 H, AST 25, ALT 29, Alkaline Phosphatase 64, Total Creatine Kinase 90, Total Protein 7.3, Albumin 3.6, Globulin 3.7, Albumin/Globulin Ratio 1.0 01/20/25 14:16: Urine Color Yellow, Urine Clarity Clear, Urine pH 5.0, Ur Specific [place] 1.010, Urine Protein Negative, Urine Glucose (UA) Normal, Urine Ketones Negative, Urine Occult Blood 10 H, Urine Nitrite Positive H, Urine Bilirubin Negative, Urine Urobilinogen Normal, Ur Leukocyte Esterase Negative, Urine RBC 0-5 SEEN, Urine WBC 0-5 SEEN, Ur Squamous Epith Cells 0-5 SEEN, Urine Bacteria 3+, Hyaline Casts 0-5 SEEN, Urine Mucus 0 SEEN Micro: Microbiology 01/20/25 14:00 Mucosa - Nose SARS-CoV-2, Influenza & RSV (PCR) - Final Rhythm Strip Rhythm Strip: Sinus Rhythm Rate: 71 Ectopy: None Imaging Radiology Impression Cervical Spine CT 01/20/25 13:49 IMPRESSION: NO ACUTE CERVICAL FRACTURE. One or more dose reduction techniques were used (e.g., Automated exposure control, adjustment of the mA and/or kV according to patient size, use of iterative reconstruction technique). Reading Location: [id number] Brain CT 01/20/25 13:50 IMPRESSION: No intracranial hemorrhage or other acute process is seen. Reading Location: [id number] Chest X-Ray 01/20/25 14:45 IMPRESSION: No active cardiopulmonary disease. Reading Location: [facility] Assessment & Plan Assessment/Plan (1) Acute UTI: (2) Encephalopathy: (3) Falls frequently: PLAN: Plan # Encephalopathy suspect metabolic with possible toxic encephalopathy -Patient with UA that is suggestive of UTI -Will treat empirically with antibiotics while waiting urine culture -Additionally it appears patient takes 100 of amitriptyline nightly, baclofen 10 mg 3 times daily, and Ambien 10 mg and also filled both tizanidine and [place] last month, there certainly could be a component of multiple medications in addition underlying UTI, will decrease amitriptyline, hold baclofen and Ambien given patient's confusion and hallucinations, can consider adding back as tolerated -Also of note CT head negative -Ammonia and VBG ordered -If patient does not improve with antibiotics may need to reassess medication list and also may need to consider MRI -Will check TSH and B12 # History of eosinophilic asthma -Continue home inhalers #KALEE -Patient presently noncompliant with her CPAP #Type 2 diabetes mellitus -Patient glucose only 98, only on oral metformin -Do not think patient needs acute insulin checks, if glucose increased on a.m. BMP consider adding glucose checks and sliding scale and #Depression/anxiety -Continue home medications # History of Cornelius -Does follow on outpatient basis #GERD -Continue famotidine #Morbid obesity -BMI documented as 40.4 kg/m? at time of admission -Complicates treatment, prognosis, outcomes -Recommend weight loss and lifestyle changes #DVT ppx: Lovenox subcu Ramila Chow MD Charges/Coding Visit Charges Inpatient E&M: 53807 Init Hosp L2
[2025-01-20 17:42] LABS: Amphetamine Urine NEGATIVE (<1000 ng/mL); Barbiturate Urine VISTA NEGATIVE (< 200 ng/mL); Benzodiazepine Urine VISTA NEGATIVE (< 200 ng/mL); Cocaine Urine VISTA NEGATIVE (< 300 ng/mL); Ecstacy Urine VISTA NEGATIVE (< 500 ng/mL); Methadone Urine VISTA NEGATIVE (< 300 ng/mL); Opiates Urine NEGATIVE (< 300 ng/mL); PCP Urine NEGATIVE (< 25 ng/mL); THC Urine VISTA NEGATIVE (< 50 ng/mL); Vista UDS pH Range 5
[2025-01-20 18:52] LABS: Blood Gas Specimen Type VEN; O2 Delivery Device Not entered; SITE Not entered; VBG BASE EXCESS -1 mmol/L (-1.0-3.5); VBG Bicarbonate 24 mmol/L (22-26); VBG PO2 48 mmHg (25-40); VBG SO2 82 % (50-70); VBG TCO2 26 mmol/L (23-33); VBG pCO2 42.5 mmHg (41-51); VBG pH 7.37 (7.32-7.42)
[2025-01-20] MEDS: Budesonide Respules 0.5 MG/2 ML AMPUL.NEB. INHALATION (19:10)
[2025-01-20] MEDS: Albuterol 2.5 MG/3 ML VIAL.NEB. INHALATION (19:10)
[2025-01-20] MEDS: 0.9% Normal Saline (1000mL) 1,000 ML 50 ML IV (19:16)
[2025-01-20 19:35] LABS: Bedside Glucose 81 mg/dL (74-106)
[2025-01-20] MEDS: Metoprolol Tartrate 25 MG Tablet 12.5 MG PO (21:30)
[2025-01-20] MEDS: Amitriptyline 25 MG Tablet 50 MG PO (21:31)
[2025-01-20] MEDS: Montelukast 10 MG Tablet PO (21:32)
[2025-01-20] MEDS: Venlafaxine XR 150 MG Capsule PO (21:32)
[2025-01-20] MEDS: Enoxaparin 40 MG/0.4 ML Syringe SC (21:35)
[2025-01-21] VITALS (9 sets, daily range): BP systolic 109–129; BP diastolic 64–75; PULSE 75–86; RESP 14–17; TEMP 36.5–36.7; O2SAT 93–100
[2025-01-21] MEDS: NIFEdipine 10 MG Capsule PO (06:02)
[2025-01-21 06:41] LABS: Absolute Lymphocyte Count 3.14 X10^3/uL (0.83-4.51); Absolute Neutrophil Count 3.9 X10^3/uL (2.0-7.7); Basophil# 0.09 X10^3/uL; Basophil% 1.1 % (0-1); Eosinophil# 0.28 X10^3/uL; Eosinophils% 3.4 % (0-5); Hematocrit 37.2 % (37-47); Hemoglobin 12.4 g/dL (12.0-15.0); Lymphocyte # 3.14 X10^3/ul (0.83-4.51); Lymphocyte % 38.3 % (19-41); Mean Corp Hgb Conc 33.3 g/dL (32-36); Mean Corpuscular Hgb 31.6 pg (27.0-32.0); Mean Corpuscular Volume 94.9 fL (81-99); Mean Platelet Vol. 9.7 fl (6.2-12.0); Monocyte# 0.76 X10^3/uL; Monocyte% 9.3 % (0-10); NRBC Flagged by Analyzer 0 % (0-5); Neutrophil # 3.88 X10^3/uL (2.7-7.7); Neutrophil % 47.4 % (47-70); Platelet Count 256 K/mm3 (150-450); RBC Distribution Width SD 45.1 fl (35.1-43.9); Red Blood Count 3.92 M/mm3 (4.2-5.4); White Blood Count 8.2 K/mm3 (4.4-11.0)
[2025-01-21 07:25] LABS: ALB/GLOB Ratio 0.9 RATIO (0.9-2.4); AST(SGOT) 25 U/L (15-37); Alanine Aminotransfer ALT/SGPT 23 U/L (13-56); Albumin, Serum 3.1 g/dL (3.2-5.0); Alkaline Phosphatase 55 U/L (45-117); Anion Gap 8 (5-15); BUN 9 mg/dL (7-18); Calcium,Total 8.7 mg/dL (8.5-10.1); Chloride 110 mmol/L (98-107); EST Glomerular Filtration Rate 66 mL/min (>60); Est Glom Filt Rate - Afr Amer 80 mL/min (>60); Estimated Creatinine Clearance 77.01 ml/min; Globulin 3.3 g/dL (2.2-4.2); Glucose 98 mg/dL (74-106); Potassium 3.8 mmol/L (3.5-5.1); Protein, Total 6.4 g/dL (6.4-8.2); Sodium Level 141 mmol/L (136-145)
[2025-01-21] MEDS: Albuterol 2.5 MG/3 ML VIAL.NEB. INHALATION ×2 (07:40→20:15)
[2025-01-21] MEDS: Budesonide Respules 0.5 MG/2 ML AMPUL.NEB. INHALATION ×2 (07:40→20:15)
[2025-01-21 08:51] LABS: Vitamin B12 156 pg/mL (211-911)
--- NOTE | 2025-01-21 08:53 | PN.HOSP_ITS ---
Reason for Visit Reason for Visit: Diagnoses Encephalopathy, unspecified (01/20/25) Urinary tract infection, site not specified (01/20/25) Repeated falls (01/20/25) Objective Data Objective Data Vital Signs: Vital Signs Temp Pulse Resp BP Pulse Ox O2 Del Method 98.0 F 75 16 111/68 100 Room Air 01/21/25 02:00 01/21/25 02:00 01/21/25 02:00 01/21/25 02:00 01/21/25 02:00 01/21/25 02:57 Oxygen Delivery Method Room Air Weight: 242 lb 15.19 oz Body Mass Index (BMI) 40.4 Intake & Output: Intake and Output for Last 24 Hours 01/19/25 01/20/25 01/21/25 23:59 23:59 23:59 Intake Total 1050 / 1290 360 / 360 Balance 1050 / 1290 360 / 360 Lab / Micro Data 01/21/25 05:28 01/21/25 05:28 Labs: Laboratory Results - last 24 hr 01/20/25 13:55: WBC 10.6, RBC 4.32, Hgb 13.4, Hct 41.1, MCV 95.1, MCH 31.0, MCHC 32.6, RDW Std Deviation 45.1 H, RDW Coeff of Vijaya 12.9, Plt Count 291, MPV 9.7, Immature Gran % (Auto) 0.800, Neut % (Auto) 49.6, Lymph % (Auto) 36.3, [place] % (Auto) 8.5, Eos % (Auto) 3.7, Baso % (Auto) 1.1 H, Absolute Neuts (auto) 5.3, Absolute Lymphs (auto) 3.85, Nucleated RBC % 0, Sodium 138, Potassium 3.7, Chloride 104, Carbon Dioxide 28.0, Anion Gap 6, BUN 12, Creatinine 1.02, Estim Creat Clear Calc 67.95, Est GFR (MDRD) Af Amer 70, Est GFR (MDRD) Non-Af 58 L, BUN/Creatinine Ratio 11.8, Glucose 98, Calcium 9.6, Total Bilirubin 1.20 H, AST 25, ALT 29, Alkaline Phosphatase 64, Total Creatine Kinase 90, Total Protein 7.3, Albumin 3.6, Globulin 3.7, Albumin/Globulin Ratio 1.0 01/20/25 14:16: Urine Color Yellow, Urine Clarity Clear, Urine pH 5.0, Ur Specific [place] 1.010, Urine Protein Negative, Urine Glucose (UA) Normal, Urine Ketones Negative, Urine Occult Blood 10 H, Urine Nitrite Positive H, Urine Bilirubin Negative, Urine Urobilinogen Normal, Ur Leukocyte Esterase Negative, Urine RBC 0-5 SEEN, Urine WBC 0-5 SEEN, Ur Squamous Epith Cells 0-5 SEEN, Urine Bacteria 3+, Hyaline Casts 0-5 SEEN, Urine Mucus 0 SEEN 01/20/25 19:18: POC Glucose 81 01/20/25 20:34: Ammonia 17.0 01/20/25 : Urine Opiates Screen NEGATIVE, Urine Methadone Screen NEGATIVE, Ur Barbiturates Screen NEGATIVE, Ur Phencyclidine Scrn NEGATIVE, Ur Amphetamines Screen NEGATIVE, MDMA (Ecstasy) Screen NEGATIVE, U Benzodiazepines Scrn NEGATIVE, Urine Cocaine Screen NEGATIVE, U Cannabinoids Screen NEGATIVE, Ur Drug Screen Comment 01/21/25 05:28: WBC 8.2, RBC 3.92 L, Hgb 12.4, Hct 37.2, MCV 94.9, MCH 31.6, MCHC 33.3, RDW Std Deviation 45.1 H, RDW Coeff of Vijaya 13.0, Plt Count 256, MPV 9.7, Immature Gran % (Auto) 0.500, Neut % (Auto) 47.4, Lymph % (Auto) 38.3, [place] % (Auto) 9.3, Eos % (Auto) 3.4, Baso % (Auto) 1.1 H, Absolute Neuts (auto) 3.9, Absolute Lymphs (auto) 3.14, Nucleated RBC % 0, Sodium 141, Potassium 3.8, Chloride 110 H, Carbon Dioxide 24.0, Anion Gap 8, BUN 9, Creatinine 0.90, Estim Creat Clear Calc 77.01, Est GFR (MDRD) Af Amer 80, Est GFR (MDRD) Non-Af 66, BUN/Creatinine Ratio 10.0, Glucose 98, Calcium 8.7, Total Bilirubin 1.20 H, AST 25, ALT 23, Alkaline Phosphatase 55, Total Protein 6.4, A lbumin 3.1 L, Globulin 3.3, Albumin/Globulin Ratio 0.9, Vitamin B12 156 L, TSH 2.150 Micro: Microbiology 01/20/25 14:00 Mucosa - Nose SARS-CoV-2, Influenza & RSV (PCR) - Final ABG Data ABG results: ABG 01/20/25 18:48 Specimen Type MARITA Sample Site Not entered O2 % 21.0 VBG pH 7.37 VBG pO2 48 H VBG HCO3 24 VBG Total CO2 26 VBG O2 Sat (Calc) 82 H VBG Base Excess -1 POC Mix VBG pCO2 Pt Tmp 42.5 O2 Delivery Device Not entered Radiography Diagnostic Testing: Radiology Impression Cervical Spine CT 01/20/25 13:49 IMPRESSION: NO ACUTE CERVICAL FRACTURE. One or more dose reduction techniques were used (e.g., Automated exposure control, adjustment of the mA and/or kV according to patient size, use of iterative reconstruction technique). Reading Location: [id number] Brain CT 01/20/25 13:50 IMPRESSION: No intracranial hemorrhage or other acute process is seen. Reading Location: [address] Chest X-Ray 01/20/25 14:45 IMPRESSION: No active cardiopulmonary disease. Reading [facility] Rhythm Strip Rhythm Strip: Sinus Rhythm Rate: 71 Ectopy: None Physical Exam Narrative Seen and examined. History taken from the patient and her daughters. She is having decreased awareness, recurrent fall almost every other day. She is also getting more forgetful with memory lapses. Having visual hallucinations Physical exam General: awake, Oriented x3, Cooperative. Looks less alert than her usual HEENT: Atraumatic, PERRLA, EOMI, Normocephalic Oral: No Gingival or Mucosal Lesions/ Ulcerations Neck: Supple, No JVD, Negative Carotid Bruits Chest wall/Lungs: Air entry diminished in bilateral lung bases. No crepitation/rhonchi Cardiovascular: Regular rate, Regular Rhythm, Normal S1, Normal S2, No M/G/R Abdomen: Bowel Sounds Present, Soft, Non Tender, Non-Distended : No dysuria. No renal angle tenderness. No suprapubic tenderness. Extremities: Minimal to mild, nonpitting edema, Capillary Refill Less than 3 Seconds Skin: No rashes, No breakdown. No ulcer or trauma over the head Musculoskeletal: No Tenderness to Palpation of Joints or Extremities Neurological: Cranial nerves II-XII grossly intact, DTR 2+/4. Decreased awareness. Psych/Mental Status: Flat affect Assessment & Plan Assessment/Plan (1) Acute UTI: (2) Encephalopathy: (3) Falls frequently: PLAN: Plan 64-year-old female was brought to ED by squad for witnessed fall. Stroke she has multiple falls almost every other day and increased confusion for past 2 weeks, almost every other day alert was called but then canceled at hospital. # Encephalopathy suspect metabolic with possible toxic encephalopathy -Patient with UA that is suggestive of UTI -Will treat empirically with antibiotics while waiting urine culture -Additionally it appears patient takes 100 of amitriptyline nightly, baclofen 10 mg 3 times daily, and Ambien 10 mg and also filled both tizanidine and [place] last month, there certainly could be a component of multiple medications in addition underlying UTI, will decrease amitriptyline, hold baclofen and Ambien given patient's confusion and hallucinations, can consider adding back as tolerated CT head was negative. VBG 7.37/mixed pCO2 42 in normal limit. B12 is low and replacement ordered. TSH normal. Serum ammonia level normal MRI on 12/10/2024 of brain with and without contrast for normal. Was done for syncope Neuroconsult # History of eosinophilic asthma -Continue home inhalers #KALEE -Patient presently noncompliant with her CPAP #Type 2 diabetes mellitus -Patient glucose only 98, only on oral metformin -Do not think patient needs acute insulin checks, if glucose increased on a.m. BMP consider adding glucose checks and sliding scale and #Depression/anxiety -Continue home medications # History of Cornelius -Does follow on outpatient basis #GERD -Continue famotidine #Morbid obesity -BMI documented as 40.4 kg/m? at time of admission -Complicates treatment, prognosis, outcomes -Recommend weight loss and lifestyle changes #DVT ppx: Lovenox subcu Charges/Coding Visit Charges Inpatient E&M: 54332 Subs Hosp L2
[2025-01-21] MEDS: Enoxaparin 40 MG/0.4 ML Syringe SC ×2 (09:50→22:41)
[2025-01-21] MEDS: Atorvastatin Calcium 20 MG Tablet PO (09:50)
[2025-01-21] MEDS: Famotidine 20 MG Tablet 40 MG PO (09:50)
[2025-01-21] MEDS: Metoprolol Tartrate 25 MG Tablet 12.5 MG PO ×2 (09:51→22:41)
[2025-01-21] MEDS: Cyanocobalamin (B12) 1,000 MCG/ML Vial 1000 MCG SC (09:58)
[2025-01-21] MEDS: Spironolactone 50 MG Tablet PO (09:59)
[2025-01-21] MEDS: Ceftriaxone 1 GM/50 ML BAG IV (10:02)
--- NOTE | 2025-01-21 13:38 | NEURO.CONS ---
Assessment and Plan: Neuro Assessment/Plan NATALIA MARQUEZ is a 64 F with a past medical history of fibromyalgia, type 2 diabetes mellitus, chronic pain, anxiety, nonrheumatic mitral valve prolapse, hypertension hyperlipidemia , being evaluated by Teleneurology for acute on chronic decline in mental status. On history, she has had subacute worsening of her cognitive symptoms but has had acute decline in setting of UTI. Exam is largely non-focal with good concentration and good fund of knowledge. Imaging is benign for lesions. - delirium precautions per primary team - continue UTI treatment - Vit B12 and folate and Vit B1 levels - if low, please consider aggressive treatment as follows (based on which deficiencies are present: Vit b12 1000mcg daily for 30 days; thiamine 500mg q8hrs for 3 days, then 250mg q24 hrs for 5 days, then 100mg daily; folate 5mg daily Followup outpatient with Dr. Bhandari for further cognitive testing. Teleneurology will sign off. I personally attended this patient and spent a total time of 45minutes evaluating this patient including clinical assessment, review of chart, medical history imaging, and determining appropriate treatment and workup. HPI Consult Data Date of Consult: 01/21/25 HPI Narrative HPI Narrative: Patient is a 64-year-old female with history of Cornelius, fibromyalgia, type 2 diabetes mellitus, chronic pain, anxiety, nonrheumatic mitral valve prolapse, hypertension hyperlipidemia presenting via EMS for altered mental status and fall. Patient lives at home. She reportedly was confused this morning but after further conversation with her daughters patient has had increased confusion for the past 2 weeks. She is also had frequent falls (falling every other day). Daughter states that she will sometimes give answers that do not make any sense. She had an MRI recently and saw neurology within the last month for the daughter think is workup of the symptoms. This morning her daughter was at home with her when the patient was just walking and fell. She was talking but not making any sense. When EMS arrived they noticed that she had garbled speech and inappropriate response to questions. They did call a stroke alert. By the time they arrived in the emergency room the patient's speech has normalized but she remains confused. EMS blood sugar was 100. Patient currently has no complaints. She does have a history of urinary tract infections. She denies any urinary symptoms. She is not on any blood thinners. Daughters are not sure if she has been on any new medications that could be causing increased confusion or falls. She apparently was post to have an appointment yesterday but had canceled it and told her mother (who was going to take her) that she canceled it because of her ex-'s car. The daughter states this did not make any sense. Encephalopathy suspect metabolic with possible toxic encephalopathy -Patient with UA that is suggestive of UTI -Will treat empirically with antibiotics while waiting urine culture -Additionally it appears patient takes 100 of amitriptyline nightly, baclofen 10 mg 3 times daily, and Ambien 10 mg and also filled both tizanidine and [place] last month, there certainly could be a component of multiple medications in addition underlying UTI, will decrease amitriptyline, hold baclofen and Ambien given patient's confusion and hallucinations, can consider adding back as tolerated CT head was negative. VBG 7.37/mixed pCO2 42 in normal limit. B12 is low and replacement ordered. TSH normal. Serum ammonia level normal MRI on 12/10/2024 of brain with and without contrast for normal. Was done for syncope Neuroconsult Neurology History: Patient feels ok now but not sleeping well. Will have difficulty falling asleep and staying sleep. Pt takes zolpidem for sleep at home some nights. She endorses headache, same one that she sees Dr. Bhandari for. She is not as confused anymore. Patient gets frequent UTIs, she cannot remember when her last one was. Her falls - she may get dizzy after standing for a while. She has hit her head twice. She does not pass out with these events. Falls are usually from sitting to standing. Will feel dizzy before her falls. [facility] Medical History (Updated 01/20/25 @ 17:[address] Maris Bland, DO) Recurrent falls Pain Syncope and collapse Headache Type 2 diabetes mellitus Borderline type 2 diabetes mellitus Burning with urination Pharyngitis Wears partial dentures CPAP (continuous positive airway pressure) dependence COPD (chronic obstructive pulmonary disease) Chronic cough Bronchitis Ulcer Infection with methicillin-resistant Staphylococcus aureus (MRSA) Insomnia Breast cancer screening Elevated gastrin level History of stress test Cardiology follow-up encounter Hypergastrinemia Fatty liver Abdominal pain Chronic diarrhea Osteoporosis Hypersomnolence Swallowing disorder Osteopenia with high risk of fracture Wears hearing aid Wears glasses Cancer High cholesterol Restless legs Gastric reflux Non-smoker History of edema History of echocardiogram Normal stress echocardiogram History of irregular heartbeat Incidental lung nodule, > 3mm and < 8mm Bilateral sacroiliitis Sacroiliac joint pain Recurrent UTI Post-menopausal Educated about COVID-19 virus infection Cervical radiculopathy Routine health maintenance Epigastric pain Back pain Difficulty balancing Knee pain Diarrhea Fatigue Diabetes History of suicide attempt Anxiety History of MRSA infection Potassium (K) deficiency Arthritis History of gout History of skin cancer Obesity (BMI 30-39.9) Nonrheumatic mitral valve prolapse Hyperlipidemia Hypertension Fibromyalgia Depression Rheumatoid arthritis Home Medications ?Medication ?Instructions ?Recorded ?Last Taken ?Type L.acidophilus,gasseri,rhamnos-B.bifidum,long 1 cap PO BID Supplement 12/06/21 01/19/25 20:23 History 1.5 billion cell capsule 1 cap (Probiotic Digestive Support (Lacto,Bifido)) nabumetone 500 mg tablet 500 mg PO BID PRN pain (scale 03/11/24 Unknown History score 1-3) spacer #1 ea 03/11/24 Unknown Rx blood-glucose meter (FreeStyle #1 ea 06/17/24 Unknown Rx Lite Meter kit) denosumab 60 mg/mL subcutaneous 60 mg subcut [id number] Osteoporosis 10/04/24 08/31/24 10:00 Rx syringe (Prolia) #1 mL 60 mg blood sugar diagnostic (FreeStyle #100 ea 10/07/24 Unknown Rx Lite Strips) cholecalciferol (vitamin D3) 1,250 1,250 mcg PO QWEEK Supplement #14 10/07/24 01/20/25 08:21 Rx mcg (50,000 unit) capsule caps 1,250 mcg metoprolol tartrate 50 mg tablet 50 mg PO BID #180 TABLETS 10/07/24 01/19/25 20:24 Rx 50 mg spironolactone 50 mg tablet 50 mg PO QAM #90 tabs 10/07/24 01/19/25 08:25 Rx 50 mg blood sugar diagnostic (OneTouch #200 ea 10/12/24 Unknown Rx Verio test strips) cetirizine 10 mg tablet 10 mg PO DAILY PRN allergy 10/12/24 01/17/25 08:00 Rx symptoms #90 tabs 10 mg famotidine 40 mg tablet 40 mg PO DAILY 3 months #90 tabs 10/12/24 01/20/25 08:22 Rx 40 mg fluticasone furoate 200 1 inh inhalation QDAY #60 ea 10/13/24 01/19/25 20:22 Rx mcg-vilanterol 25 mcg/dose 1 inh inhalation powder (Breo Ellipta) albuterol sulfate 90 mcg/actuation 2 puff inhalation Q4H PRN 10/14/24 Unknown Rx aerosol inhaler shortness of breath or wheezing #8.5 grams amitriptyline 100 mg tablet 100 mg PO QHS #30 tabs 10/14/24 01/19/25 20:21 Rx 50 mg baclofen 10 mg tablet 10 mg PO TID PRN muscle 10/14/24 Unknown Rx pain/muscle spasm #90 tabs lancets 28 gauge (FreeStyle #200 ea 10/15/24 Unknown Rx Lancets) venlafaxine 150 mg 150 mg PO QHS depression 10/22/24 01/19/25 20:25 History capsule,extended release 24 hr 150 mg fluticasone propionate 50 2 spray intranasal DAILY Allergies 11/05/24 01/19/25 20:22 Rx mcg/actuation nasal #16 grams 2 spray spray,suspension montelukast 10 mg tablet 10 mg PO QPM #30 tabs 11/05/24 01/19/25 20:24 Rx 10 mg Onetouch Verio Lancing Device #200 ea 12/08/24 Unknown Rx zolpidem 10 mg tablet 10 mg PO QHS PRN insomnia #30 tabs 12/08/24 01/19/25 22:00 Rx 10 mg metformin 500 mg tablet,extended 500 mg PO QDAY Diabetes #30 tabs 01/05/25 01/19/25 08:23 Rx release 24 hr 500 mg nifedipine 10 mg capsule 10 mg PO BID Hypertension 01/20/25 01/19/25 20:24 History 10 mg rosuvastatin 10 mg tablet 10 mg PO DAILY Cholesterol 01/20/25 01/19/25 08:24 History 10 mg Allergy/AdvReac Type Severity Reaction Status Date / Time paroxetine (From Paxil) Allergy suicidal Verified 01/20/25 13:56 thoughts bupropion (From Wellbutrin) AdvReac Severe suicidal Verified 01/20/25 13:56 thoughts oxycodone HCl (From Percocet) AdvReac Itching Verified 01/20/25 13:56 Penicillins AdvReac YEAST Verified 01/20/25 13:56 INFECTION Family History Grandfather CAD (coronary artery disease) Heart disease Myocardial infarction Hypertension Hyperlipemia Anxiety and depression Melanoma Diabetes Grandmother Diabetes Arthritis Glaucoma Breast cancer Father Alcoholism Respiratory disease Sister Heart disease Surgical History History of esophagogastroduodenoscopy (EGD) Hx of right cataract extraction History of esophagogastroduodenoscopy (EGD) Hx of kyphoplasty History of cardiac catheterization History of right knee joint replacement History of left heart catheterization (~10/04/11) Status post cataract extraction and insertion of intraocular lens left ankle surgery History of appendectomy Hx of cholecystectomy History of hysterectomy H/O repair of right rotator cuff (~08/2017) Social History (Updated 01/20/25 @ 14:05 by Missy Castro) household members: none housing: house Smoking Status: Never smoker second hand exposure: No alcohol intake: current alcohol intake frequency: holidays/special occasions only substance use type: does not use what type of physical activity do you participate in: none angela/restorationism: Hindu seatbelt use: always Vital Signs Vital Signs Vital Signs: 01/20/25 13:50 01/20/25 15:45 01/20/25 17:00 Temperature 98.3 F Temperature Source Temporal Pulse Rate 79 73 80 Pulse Strength Respiratory Rate 18 16 Respiratory Effort Respiratory Depth Respiratory Pattern Blood Pressure 134/74 H 106/62 108/50 L Blood Pressure Mean 94 76 69 Pulse Ox 94 98 94 Oxygen Delivery Method Room Air 01/20/25 17:39 01/20/25 17:39 01/20/25 19:10 Temperature 98.2 F 97.9 F Temperature Source Oral Pulse Rate 80 73 78 Pulse Strength Respiratory Rate 18 16 16 Respiratory Effort Respiratory Depth Respiratory Pattern Normal Blood Pressure 108/50 L 100/61 Blood Pressure Mean 69 74 Pulse Ox 94 96 Oxygen Delivery Method Room Air 01/20/25 19:39 01/20/25 20:00 01/20/25 21:30 Temperature 98.4 F Temperature Source Oral Pulse Rate 84 84 Pulse Strength Respiratory Rate 18 Respiratory Effort Normal Respiratory Depth Normal Respiratory Pattern Normal Blood Pressure 92/70 Blood Pressure Mean 77 Pulse Ox 97 Oxygen Delivery Method Room Air Room Air 01/20/25 22:00 01/21/25 02:00 01/21/25 02:57 Temperature 98.0 F Temperature Source Oral Pulse Rate 75 Pulse Strength Normal (2+) Respiratory Rate 16 Respiratory Effort Normal Respiratory Depth Normal Respiratory Pattern Normal Blood Pressure 111/68 Blood Pressure Mean 82 Pulse Ox 100 Oxygen Delivery Method Room Air Room Air 01/21/25 07:40 01/21/25 09:42 01/21/25 09:45 Temperature 98.0 F Temperature Source Oral Pulse Rate 77 80 Pulse Strength Respiratory Rate 17 16 Respiratory Effort Normal Respiratory Depth Normal Respiratory Pattern Normal Normal Blood Pressure 112/64 Blood Pressure Mean 80 Pulse Ox 93 Oxygen Delivery Method Room Air Room Air 01/21/25 09:51 Temperature Temperature Source Pulse Rate 80 Pulse Strength Respiratory Rate Respiratory Effort Respiratory Depth Respiratory Pattern Blood Pressure 112/64 Blood Pressure Mean Pulse Ox Oxygen Delivery Method Weight Weight: 110.2 kg Body Mass Index (BMI) 40.4 EEG Results Procedure Details EEG Procedure Details: NATALIA MARQUEZ is a 64 year old F with a past medical history of , who presents for evaluation of Electroencephalogram on DATE at TIME Physical Exam Narrative -? NEURO: -? Mental Status: The patient was alert and oriented to time, place, and person. Normal recent/remote memory, concentration, and general fund of knowledge. -? Language: speech is clear.? Naming, repetition, fluency, and comprehension intact. -? Cranial Nerves: PERRL 2 mm/brisk. EOMI, visual ramirez full, no facial asymmetry, facial sensation intact, hearing intact, tongue midline, no evidence of atrophy or fibrillations. -? Motor: normal bulk, tone, and strength throughout. No pronator drift or satelliting. Upper and lower extremities equal bilaterally. -? Detailed strength exam as performed by the nurse/FILIBERTO and witnessed by the physician: R L SA 5 5 EE 5 5 EF 5 5 WE WF Stem Maker 5 5 HF KE KF DF PF -? Tone: is normal and bulk is normal -? Sensation- Intact to light touch bilaterally -? Coordination: No dysmetria on [id number], finger follow finger or [id number]. -? Gait- deferred Lab / Micro Data 01/21/25 05:28 01/21/25 05:28 Labs: Laboratory Results - last 24 hr 01/20/25 13:55: WBC 10.6, RBC 4.32, Hgb 13.4, Hct 41.1, MCV 95.1, MCH 31.0, MCHC 32.6, RDW Std Deviation 45.1 H, RDW Coeff of Vijaya 12.9, Plt Count 291, MPV 9.7, Immature Gran % (Auto) 0.800, Neut % (Auto) 49.6, Lymph % (Auto) 36.3, [place] % (Auto) 8.5, Eos % (Auto) 3.7, Baso % (Auto) 1.1 H, Absolute Neuts (auto) 5.3, Absolute Lymphs (auto) 3.85, Nucleated RBC % 0, Sodium 138, Potassium 3.7, Chloride 104, Carbon Dioxide 28.0, Anion Gap 6, BUN 12, Creatinine 1.02, Estim Creat Clear Calc 67.95, Est GFR (MDRD) Af Amer 70, Est GFR (MDRD) Non-Af 58 L, BUN/Creatinine Ratio 11.8, Glucose 98, Calcium 9.6, Total Bilirubin 1.20 H, AST 25, ALT 29, Alkaline Phosphatase 64, Total Creatine Kinase 90, Total Protein 7.3, Albumin 3.6, Globulin 3.7, Albumin/Globulin Ratio 1.0 01/20/25 14:16: Urine Color Yellow, Urine Clarity Clear, Urine pH 5.0, Ur Specific [place] 1.010, Urine Protein Negative, Urine Glucose (UA) Normal, Urine Ketones Negative, Urine Occult Blood 10 H, Urine Nitrite Positive H, Urine Bilirubin Negative, Urine Urobilinogen Normal, Ur Leukocyte Esterase Negative, Urine RBC 0-5 SEEN, Urine WBC 0-5 SEEN, Ur Squamous Epith Cells 0-5 SEEN, Urine Bacteria 3+, Hyaline Casts 0-5 SEEN, Urine Mucus 0 SEEN 01/20/25 19:18: POC Glucose 81 01/20/25 20:34: Ammonia 17.0 01/20/25 : Urine Opiates Screen NEGATIVE, Urine Methadone Screen NEGATIVE, Ur Barbiturates Screen NEGATIVE, Ur Phencyclidine Scrn NEGATIVE, Ur Amphetamines Screen NEGATIVE, MDMA (Ecstasy) Screen NEGATIVE, U Benzodiazepines Scrn NEGATIVE, Urine Cocaine Screen NEGATIVE, U Cannabinoids Screen NEGATIVE, Ur Drug Screen Comment 01/21/25 05:28: WBC 8.2, RBC 3.92 L, Hgb 12.4, Hct 37.2, MCV 94.9, MCH 31.6, MCHC 33.3, RDW Std Deviation 45.1 H, RDW Coeff of Vijaya 13.0, Plt Count 256, MPV 9.7, Immature Gran % (Auto) 0.500, Neut % (Auto) 47.4, Lymph % (Auto) 38.3, [place] % (Auto) 9.3, Eos % (Auto) 3.4, Baso % (Auto) 1.1 H, Absolute Neuts (auto) 3.9, Absolute Lymphs (auto) 3.14, Nucleated RBC % 0, Sodium 141, Potassium 3.8, Chloride 110 H, Carbon Dioxide 24.0, Anion Gap 8, BUN 9, Creatinine 0.90, Estim Creat Clear Calc 77.01, Est GFR (MDRD) Af Amer 80, Est GFR (MDRD) Non-Af 66, BUN/Creatinine Ratio 10.0, Glucose 98, Calcium 8.7, Total Bilirubin 1.20 H, AST 25, ALT 23, Alkaline Phosphatase 55, Total Protein 6.4, Albumin 3.1 L, Globulin 3.3, Albumin/Globulin Ratio 0.9, Vitamin B12 156 L, TSH 2.150 Micro: Microbiology 01/20/25 Unknown Urine Catheter - Catheter Urine Culture - Preliminary GNR 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 One or more dose reduction techniques were used (e.g., Automated exposure control, adjustment of the mA and/or kV according to patient size, use of iterative reconstruction technique). Reading Location: [id number] Brain CT 01/20/25 13:50 IMPRESSION: No intracranial hemorrhage or other acute process is seen. Reading Location: [id number] Chest X-Ray 01/20/25 14:45 IMPRESSION: No active cardiopulmonary disease. [facility] Active Medications Active Medications Active Medications: Current Medications Generic Name Dose Route Start Last Admin Trade Name Freq PRN Reason Stop Dose Admin Acetaminophen 650 mg 01/20/25 18:37 Acetaminophen 325 Mg Tablet PO Q6H PRN PRN Pain 1-10 Or Fever >100.7 Albuterol Sulfate 2.5 mg 01/20/25 18:45 01/21/25 07:40 Albuterol 2.5 Mg/3 Ml Vial.Neb. INHALATION 2.5 mg Q6HWA.RT JANINA Administration Amitriptyline HCl 50 mg 01/20/25 22:00 01/20/25 21:31 Amitriptyline 25 Mg Tablet PO 50 mg QHS JANINA Administration Atorvastatin Calcium 20 mg 01/21/25 10:00 01/21/25 09:50 Atorvastatin Calcium 20 Mg Tablet PO 20 mg DAILY JANINA Administration Budesonide 0.5 mg 01/20/25 18:45 01/21/25 07:40 Budesonide Respules 0.5 Mg/2 Ml Ampul.Neb. INHALATION 0.5 mg Q12H.RT JANINA Administration Cyanocobalamin 1,000 mcg 01/22/25 08:00 Cyanocobalamin 500 Mcg Tablet PO BREAKFAST JANINA Enoxaparin Sodium 40 mg 01/20/25 22:00 01/21/25 09:50 Enoxaparin 40 Mg/0.4 Ml Syringe SC 40 mg BID JANINA Administration Famotidine 40 mg 01/21/25 10:00 01/21/25 09:50 Famotidine 20 Mg Tablet PO 40 mg DAILY JANINA Administration Glucagon 1 mg 01/20/25 18:37 Glucagon 1 Mg/Ml Syringe IM X1 PRN Hypoglycemia Protocol Sodium Chloride 1,000 mls @ 50 mls/hr 01/20/25 18:37 01/21/25 10:32 IV 01/21/25 14:36 50 mls/hr .Q20H JANINA Infusion Protocol Ceftriaxone Sodium 1 gm in 50 mls @ 100 mls/hr 01/21/25 10:00 01/21/25 10:32 Rocephin IV Infused Q24 JANINA Infusion Dextrose 250 mls @ 0 mls/hr 01/20/25 18:37 Dextrose 10%-Water IV .Q0M PRN HYPOGLYCEMIA Protocol As Directed Melatonin 3 mg 01/20/25 18:37 Melatonin 3 Mg Tablet PO QHS PRN PRN INSOMNIA Metoprolol Tartrate 12.5 mg 01/20/25 22:00 01/21/25 09:51 Metoprolol Tartrate 25 Mg Tablet PO 12.5 mg BID JANINA Administration Protocol Montelukast Sodium 10 mg 01/20/25 21:00 01/20/25 21:32 Montelukast 10 Mg Tablet PO 10 mg QPM JANINA Administration Nifedipine 10 mg 01/21/25 07:00 01/21/25 06:02 Nifedipine 10 Mg Capsule PO 10 mg BIDAC JANINA Administration Protocol Nutritional Formula (Lactose Free) 120 ml 01/21/25 08:00 01/21/25 09:50 Glucerna Shake 120 Ml Liquid PO Not Given [facility] Ondansetron HCl 4 mg 01/20/25 18:37 Ondansetron 4 Mg/2 Ml Vial IV Q8H PRN PRN NAUSEA/VOMITING Senna/Docusate Sodium 2 tablet 01/20/25 18:37 Senna/Docusate Sodium 1 Tablet PO BID PRN PRN Constipation Sodium Chloride 10 - 40 ml 01/20/25 19:23 0.9% Saline Lock 10 Ml Syringe IV UD PRN SALINE FLUSH Spironolactone 50 mg 01/21/25 10:00 01/21/25 09:59 Spironolactone 50 Mg Tablet PO 50 mg QAM JANINA Administration Protocol Venlafaxine HCl 150 mg 01/20/25 22:00 01/20/25 21:32 Venlafaxine Xr 150 Mg Capsule PO 150 mg QHS JANINA Administration
--- NOTE | 2025-01-21 14:52 | CASEMGMT ---
BASIL CHUA Face to Face with patient for initial transition planning/care coordination assessment. BASIL CHUA introduced self and role at [facility]. Patient lying in bed, alert and oriented. Patient willing to participate in assessment and is able to answer all questions appropriately. Care providers, pharmacy, and demographics verified. Strata: 2 PCP: Autumn Specialists: Friend, GI; Thony, neurologist Preferred Pharmacy: [facility] Insurance: [place] MCR Prescription Benefit: yes Living Will/HPOA: yes, daughter Victoria Sky LNOK: daughters Living Arrangements: Patient lives with her boyfriend in a split level home with 6 steps and railing. Masoodn states she is independent at home but has been falling, especially with stairs. Transportation: daughters DME/HHC: Patient has shower chair, raised toilet, cane crutches, grab bars, walker, cpap, and pulse ox at home. No previous HHC or SNF. Patient wishes to discharge home. BASIL CHUA discussed additional therapy at discharge, patient and daughters interested in outpatient therapy and prefer to schedule own their own. Patient states he has no further needs or concerns at this time. CM to follow for discharge planning needs that may arise. Green sheet placed on chart for outpatient therapy. Disposition Plan: Patient to discharge home with outpatient therapy, family support and follow-up plans in place. Isaura DOLL, RN, CM
[2025-01-21 16:16] LABS: Bedside Glucose 110 mg/dL (74-106)
[2025-01-21] MEDS: Folic Acid 1 MG Tablet PO (16:45)
[2025-01-21] MEDS: MELATONIN 3 MG TABLET PO (22:40)
[2025-01-21] MEDS: Amitriptyline 25 MG Tablet 50 MG PO (22:40)
[2025-01-21] MEDS: Montelukast 10 MG Tablet PO (22:41)
[2025-01-21] MEDS: Venlafaxine XR 150 MG Capsule PO (22:41)
[2025-01-21] MEDS: 0.9% Saline Lock 10 ML Syringe IV (22:41)
[2025-01-22] VITALS (7 sets, daily range): BP systolic 101–133; BP diastolic 66–70; PULSE 76–92; RESP 14–20; TEMP 36.4–36.7; O2SAT 93–95
[2025-01-22 05:15] LABS: Absolute Neutrophil Count 4.5 X10^3/uL (2.0-7.7); Basophil# 0.09 X10^3/uL; Basophil% 1.1 % (0-1); Eosinophil# 0.32 X10^3/uL; Eosinophils% 3.8 % (0-5); Hematocrit 38.5 % (37-47); Hemoglobin 12.8 g/dL (12.0-15.0); Lymphocyte % 34.1 % (19-41); Mean Corp Hgb Conc 33.2 g/dL (32-36); Mean Corpuscular Hgb 31.4 pg (27.0-32.0); Mean Corpuscular Volume 94.4 fL (81-99); Mean Platelet Vol. 9.6 fl (6.2-12.0); Monocyte% 8.2 % (0-10); NRBC Flagged by Analyzer 0 % (0-5); Neutrophil # 4.46 X10^3/uL (2.7-7.7); Neutrophil % 52.4 % (47-70); Platelet Count 267 K/mm3 (150-450); RBC Distribution Width SD 44.5 fl (35.1-43.9); Red Blood Count 4.08 M/mm3 (4.2-5.4); White Blood Count 8.5 K/mm3 (4.4-11.0)
[2025-01-22 05:36] LABS: Anion Gap 7 (5-15); BUN 8 mg/dL (7-18); BUN/Creat Ratio 9.3 RATIO (10-20); Calcium,Total 9.3 mg/dL (8.5-10.1); Chloride 108 mmol/L (98-107); Creatinine, Serum 0.86 mg/dL (0.55-1.02); EST Glomerular Filtration Rate 70 mL/min (>60); Est Glom Filt Rate - Afr Amer 85 mL/min (>60); Estimated Creatinine Clearance 80.59 ml/min; Glucose 117 mg/dL (74-106); Potassium 3.9 mmol/L (3.5-5.1); Sodium Level 140 mmol/L (136-145)
[2025-01-22] MEDS: NIFEdipine 10 MG Capsule PO (06:38)
[2025-01-22] MEDS: Albuterol 2.5 MG/3 ML VIAL.NEB. INHALATION ×2 (07:37→13:23)
[2025-01-22] MEDS: Spironolactone 50 MG Tablet PO (08:19)
[2025-01-22] MEDS: Famotidine 20 MG Tablet 40 MG PO (08:19)
[2025-01-22] MEDS: Cyanocobalamin 500 MCG Tablet 1000 MCG PO (08:19)
[2025-01-22] MEDS: Atorvastatin Calcium 20 MG Tablet PO (08:20)
[2025-01-22] MEDS: Folic Acid 1 MG Tablet PO (08:24)
[2025-01-22] MEDS: Ceftriaxone 1 GM/50 ML BAG IV (10:01)
--- NOTE | 2025-01-22 11:26 | DCINST_ITS ---
Discharge Instructions DC O2, CPAP, BIPAP needs Home O2 Discharge instructions: No Follow Up Care Test Results: Test results from this visit will be discussed in further detail at your follow- up appointment, if applicable. Discharge Plan Admission Admit Date/Time: 01/20/25 17:15 Primary Reason for Your Visit: Altered mental status Attending Provider: Cristian Perales Primary Care Provider: Ryan Leyva Consulting Providers: Ramila Chow; Cam Cruz; Adri Simons; Yojana Kang; Mary Ellen Polanco; Neelima Sosa; Bobo Laird; Veronika Hicks; Orlando Castillo; Moises Larson; Nick Ibrahim; Rona Curry; Rogers Avalos; Gretel Olivo; Shantell Stauffer; Lizz Leonardo; Han Haywood; Eb Braga; Miky Newell; Majo Retana; Fracisco Casillas Instructions Additional Instructions / Restrictions: Amitriptyline dose decreased to 25 mg daily at bedtime. Ambien/zolpidem discontinued because of hallucination Discharge Orders/Prescriptions Prescriptions: New amitriptyline 25 mg Tablet 25 mg PO QHS 30 Days Qty: 30 0RF cyanocobalamin (vitamin B-12) 1,000 mcg tablet extended release 1,000 mcg PO BREAKFAST 30 Days Qty: 30 2RF folic acid 1 mg Tablet 1 mg PO BREAKFAST 30 Days Qty: 30 2RF thiamine HCl (vitamin B1) 100 mg tablet 100 mg PO DAILY 30 Days Qty: 30 2RF Continued Probiotic Digest(Lacto,Bifido) 1.5 billion cell capsule 1 cap PO BID nabumetone 500 mg tablet 500 mg PO BID PRN (Reason: pain (scale score 1-3)) (DME) spacer See Rx Instructions .ROUTE .MEDSUPPLY Qty: 1 0RF Rx Instructions: As directed (DME) blood-glucose meter [FreeStyle Lite Meter] Kit See Rx Instructions .MEDSUPPLY Qty: 1 0RF Rx Instructions: As directed, check blood glucose daily for type 2 DM metformin 500 mg tablet extended release 24 hr 500 mg PO QDAY Qty: 30 1RF rosuvastatin 10 mg tablet 10 mg PO DAILY Rx Instructions: PT CURRENTLY TAKING 10MG INCREASED TO 20MG BY DR JALLOH BUT PT HAS NOT INCREASED AT HOME venlafaxine 150 mg capsule,extended release 24hr 150 mg PO QHS Prolia 60 mg/mL syringe 60 mg subcut [id number] Qty: 1 2RF (DME) FreeStyle Lite Strips Strip See Rx Instructions .MEDSUPPLY Qty: 100 3RF Rx Instructions: check blood glucose daily for type 2 DM cholecalciferol (vitamin D3) 1,250 mcg (50,000 unit) capsule 1,250 mcg PO QWEEK Qty: 14 3RF spironolactone 50 mg tablet 50 mg PO QAM Qty: 90 1RF (DME) OneTouch Verio test strips Strip See Rx Instructions .Route Qty: 200 3RF Rx Instructions: Check Blood Glucose BID famotidine 40 mg tablet 40 mg PO DAILY 90 Days Qty: 90 3RF cetirizine 10 mg tablet 10 mg PO DAILY PRN (Reason: allergy symptoms) Qty: 90 0RF fluticasone furoate-vilanterol [Breo Ellipta] 200-25 mcg/dose blister with device 1 inh inhalation QDAY Qty: 60 6RF Rx Instructions: after inhalation, rinse mouth with water and spit out; do not swallow albuterol sulfate 90 mcg/actuation HFA aerosol inhaler 2 puff inhalation Q4H PRN (Reason: shortness of breath or wheezing) Qty: 8.5 6RF Rx Instructions: administer with spacer (DME) lancets [FreeStyle Lancets] 28 gauge misc See Rx Instructions .MEDSUPPLY Qty: 200 10RF Rx Instructions: check blood glucose daily for type 2 DM fluticasone propionate 50 mcg/actuation spray,suspension 2 spray intranasal DAILY Qty: 16 11RF montelukast 10 mg tablet 10 mg PO QPM Qty: 30 11RF (DME) Onetouch Verio Lancing Device See Rx Instructions .Route .MEDSUPPLY Qty: 200 10RF Rx Instructions: As directed Changed nifedipine 10 mg capsule 10 mg PO BID Qty: 30 0RF Rx Instructions: Take one hour before meal Hold for SBP less than 130 mmHg baclofen 10 mg tablet 5 mg PO TID PRN (Reason: muscle pain/muscle spasm) Qty: 90 5RF metoprolol tartrate 50 mg tablet 25 mg PO BID Qty: 180 3RF Discontinued amitriptyline 100 mg tablet 100 mg PO QHS Qty: 30 3RF zolpidem 10 mg tablet 10 mg PO QHS PRN (Reason: insomnia) Qty: 30 0RF Referrals / Follow Up: Ryan Leyva MD [Primary Care Provider] - Joselito Bhandari MD [Non-Staff -Ordering Privileges] - Within 1 Month
--- NOTE | 2025-01-22 11:38 | DS.PCM_ITS ---
Providers Date of Admission: 01/20/25 Date of Discharge: 01/22/25 Primary Care Physician: Dr. Ryan Leyva MD Consultations 01/21/25 09:56 Consult: Tele-Neurology Routine Consulting Provider: [facility] Reason for Consult: Acute encephalopathy, confusion, decreased awareness hallucinations. Recur EMERGENT Consult: No MD Notified: Yes Date Notified: 01/21/25 Time Notified: 09:57 Method of Notification: Text Comments:: On multiple sedative medication Nursing Unit Staff Notify [facility] of Tele-Neurology Consult: Yes Reason For Visit: ENCEPHALOPATHY, SUSPECT METABOLIC 2NDARY TO UTI Diagnosis Discharge Diagnosis (1) Acute UTI: Status: Acute Code(s): N39.0 - Urinary tract infection, site not specified (2) Encephalopathy: Status: Acute Code(s): G93.40 - Encephalopathy, unspecified (3) Falls frequently: Status: Acute Code(s): R29.6 - Repeated falls Plan 64-year-old female was brought to ED by squad for witnessed fall. Stroke she has multiple falls almost every other day and increased confusion for past 2 weeks, almost every other day alert was called but then canceled at hospital. # Encephalopathy suspect metabolic with possible toxic encephalopathy related to polypharmacy and possible Citrobacter UTI -Patient with UA that is suggestive of UTI -Will treat empirically with antibiotics while waiting urine culture -Additionally it appears patient takes 100 of amitriptyline nightly, baclofen 10 mg 3 times daily, and Ambien 10 mg and also filled both tizanidine and [place] last month, there certainly could be a component of multiple medications in addition underlying UTI, will decrease amitriptyline, hold baclofen and Ambien given patient's confusion and hallucinations, can consider adding back as tolerated CT head was negative. VBG 7.37/mixed pCO2 42 in normal limit. B12 is low and replacement ordered. TSH normal. Serum ammonia level normal MRI on 12/10/2024 of brain with and without contrast for normal. Was done for syncope Patient was seen by daily neurologist here. 01/22: Cystitis due to Citrobacter: Urine culture showed Citrobacter more than 100,000 colonies, pansensitive. Patient had IV ceftriaxone while here. Discharged on 3 days of Cipro to complete the UTI treatment. Ambien discontinued. Amitriptyline dose decreased to 25 mg daily which she was taking 50 mg daily before. Baclofen dose decreased to 5 mg 3 times daily as needed. Patient on venlafaxine to continue. She follows neurologist Dr. Bhandari advised to keep follow-up in 1 month. Patient was seen by neurologist here and recommended vitamin B1 and folic acid which is ordered. Patient discharged on cyanocobalamin, thiamine and folic acid. # History of eosinophilic asthma -Continue home inhalers #KALEE -Patient presently noncompliant with her CPAP #Type 2 diabetes mellitus -Patient glucose only 98, only on oral metformin -Do not think patient needs acute insulin checks, if glucose increased on a.m. BMP consider adding glucose checks and sliding scale and #Depression/anxiety -Continue home medications # History of Cornelius -Does follow on outpatient basis #GERD -Continue famotidine #Morbid obesity -BMI documented as 40.4 kg/m? at time of admission -Complicates treatment, prognosis, outcomes -Recommend weight loss and lifestyle changes #DVT ppx: Lovenox subcu Discharge medication reconciliation done. Discharge follow-up instructions completed. Discharge process discussed with the patient and all questions were answered to patient's satisfaction. Follow with PCP in 1 to 2 weeks Total time spent, exact 35 minutes on discharge meds reconciliation, examination, coordination of care with nurses and ancillary staff, review of imaging and blood test and discussion with the patient on follow-up instructions. Medications at Discharge Home Medications L.acidophilus,gasseri,rhamnos-B.bifidum,long 1.5 billion cell capsule (Probiotic Digestive Support (Lacto,Bifido)) 1 cap PO BID Supplement 12/06/21 nabumetone 500 mg tablet 500 mg PO BID PRN pain (scale score 1-3) 03/11/24 spacer #1 ea 03/11/24 blood-glucose meter (FreeStyle Lite Meter kit) #1 ea 06/17/24 denosumab 60 mg/mL subcutaneous syringe (Prolia) 60 mg subcut [id number] Osteoporosis #1 mL 10/04/24 blood sugar diagnostic (FreeStyle Lite Strips) #100 ea 10/07/24 cholecalciferol (vitamin D3) 1,250 mcg (50,000 unit) capsule 1,250 mcg PO QWEEK Supplement #14 caps 10/07/24 spironolactone 50 mg tablet 50 mg PO QAM #90 tabs 10/07/24 blood sugar diagnostic (OneTouch Verio test strips) #200 ea 10/12/24 cetirizine 10 mg tablet 10 mg PO DAILY PRN allergy symptoms #90 tabs 10/12/24 famotidine 40 mg tablet 40 mg PO DAILY 3 months #90 tabs 10/12/24 fluticasone furoate 200 mcg-vilanterol 25 mcg/dose inhalation powder (Breo Ellipta) 1 inh inhalation QDAY #60 ea 10/13/24 albuterol sulfate 90 mcg/actuation aerosol inhaler 2 puff inhalation Q4H PRN shortness of breath or wheezing #8.5 grams 10/14/24 lancets 28 gauge (FreeStyle Lancets) #200 ea 10/15/24 venlafaxine 150 mg capsule,extended release 24 hr 150 mg PO QHS depression 10/22/24 fluticasone propionate 50 mcg/actuation nasal spray,suspension 2 spray intranasal DAILY Allergies #16 grams 11/05/24 montelukast 10 mg tablet 10 mg PO QPM #30 tabs 11/05/24 Onetouch Verio Lancing Device #200 ea 12/08/24 metformin 500 mg tablet,extended release 24 hr 500 mg PO QDAY Diabetes #30 tabs 01/05/25 rosuvastatin 10 mg tablet 10 mg PO DAILY Cholesterol 01/20/25 amitriptyline 25 mg tablet 25 mg PO QHS 30 days #30 tabs 01/22/25 baclofen 10 mg tablet 5 mg (1/2 x 10 mg) PO TID PRN muscle pain/muscle spasm #90 tabs 01/22/25 ciprofloxacin HCl 500 mg tablet (Cipro) 500 mg PO BID 3 days #6 tabs 01/22/25 cyanocobalamin (vitamin B-12) 1,000 mcg tablet,extended release 1,000 mcg PO BREAKFAST 30 days #30 tabs 01/22/25 folic acid 1 mg tablet 1 mg PO BREAKFAST 30 days #30 tabs 01/22/25 metoprolol tartrate 50 mg tablet 25 mg (1/2 x 50 mg) PO BID #180 TABLETS 01/22/25 nifedipine 10 mg capsule 10 mg PO BID Hypertension #30 caps 01/22/25 thiamine HCl (vitamin B1) 100 mg tablet 100 mg PO DAILY 1 month #30 tabs 01/22/25 Physical Exam Narrative Seen and examined. Patient looks better. She is more awake alert and aware. Met with her daughter who is the eldest. She has ongoing forgetfulness and memory lapses. Had visual hallucinations Physical exam General: awake, Oriented x3, Cooperative. Looks less alert than her usual HEENT: Atraumatic, PERRLA, EOMI, Normocephalic Oral: No Gingival or Mucosal Lesions/ Ulcerations Neck: Supple, No JVD, Negative Carotid Bruits Chest wall/Lungs: Air entry diminished in bilateral lung bases. No crepitation/rhonchi Cardiovascular: Regular rate, Regular Rhythm, Normal S1, Normal S2, No M/G/R Abdomen: Bowel Sounds Present, Soft, Non Tender, Non-Distended : No dysuria. No renal angle tenderness. No suprapubic tenderness. Extremities: Minimal to mild, nonpitting edema, Capillary Refill Less than 3 Seconds Skin: No rashes, No breakdown. No ulcer or trauma over the head Musculoskeletal: No Tenderness to Palpation of Joints or Extremities Neurological: Cranial nerves II-XII grossly intact, DTR 2+/4. Decreased awareness. Psych/Mental Status: Flat affect Weight / BMI Weight Weight: 242 lb 15.19 oz Body Mass Index (BMI) 40.4 ABG / Lab / Microbiology Data 01/22/25 04:19 01/22/25 04:19 Laboratory: Laboratory Results - last 24 hr 01/21/25 15:59: POC Glucose 110 H 01/22/25 04:19: WBC 8.5, RBC 4.08 L, Hgb 12.8, Hct 38.5, MCV 94.4, MCH 31.4, MCHC 33.2, RDW Std Deviation 44.5 H, RDW Coeff of Vijaya 13.0, Plt Count 267, MPV 9.6, Immature Gran % (Auto) 0.400, Neut % (Auto) 52.4, Lymph % (Auto) 34.1, [place] % (Auto) 8.2, Eos % (Auto) 3.8, Baso % (Auto) 1.1 H, Absolute Neuts (auto) 4.5, Absolute Lymphs (auto) 2.90, Nucleated RBC % 0, Sodium 140, Potassium 3.9, C hloride 108 H, Carbon Dioxide 25.0, Anion Gap 7, BUN 8, Creatinine 0.86, Estim Creat Clear Calc 80.59, Est GFR (MDRD) Af Amer 85, Est GFR (MDRD) Non-Af 70, B UN/Creatinine Ratio 9.3 L, Glucose 117 H, Calcium 9.3 Microbiology: Microbiology 01/20/25 Unknown Urine Catheter - Catheter Urine Culture - Preliminary Citrobacter freundii 01/20/25 14:00 Mucosa - Nose SARS-CoV-2, Influenza & RSV (PCR) - Final D/C Instructions DC O2, CPAP, BIPAP Needs Home O2 Discharge instructions: No Meaningful Use Info Meaningful Use Meaningful Use Diagnoses (Choose all that apply): None applicable Ischemic Stroke Statin Dosing Therapy Reference: STATIN DOSE THERAPY REFERENCE: * Patients > 75 years receive moderate or high dose statin therapy. * Patients 75 years or YOUNGER should receive HIGH intensity statin dose unless contraindicated. You will be required to document reason for non-treatment if statin daily dose does not meet guidelines. HIGH DOSE STATIN THERAPY DAILY Atorvastatin > than or = to 40 mg Rosuvastatin > than or = to 20 mg Amlodipine + Atorvastatin > than or = to 2.5/40 mg Ezetimibe + Simvastatin 10/80 mg Simvastatin 80mg Discharge Plan Admission Admit Date/Time: 01/20/25 17:15 Primary Reason for Your Visit: Altered mental status Attending Provider: Cristian Perales Primary Care Provider: Ryan Leyva Consulting Providers: Ramila Chow; Cam Cruz; Adri Simons; Yojana Kang; Mary Ellen Polanco; Neelima Sosa; Bobo Laird; Veronika Hicks; Orlando Castillo; Moises Larson; Nick Ibrahim; Rona Curry; Rogers Avalos; Gretel Olivo; Shantell Stauffer; Malissajoselyn Jonnie; Han Haywood; Eb Braga; Miky Newell; Majo Retana; Fracisco Casillas Instructions Additional Instructions / Restrictions: Amitriptyline dose decreased to 25 mg daily at bedtime. Ambien/zolpidem discontinued because of hallucination Discharge Orders/Prescriptions Prescriptions: New amitriptyline 25 mg Tablet 25 mg PO QHS 30 Days Qty: 30 0RF cyanocobalamin (vitamin B-12) 1,000 mcg tablet extended release 1,000 mcg PO BREAKFAST 30 Days Qty: 30 2RF folic acid 1 mg Tablet 1 mg PO BREAKFAST 30 Days Qty: 30 2RF thiamine HCl (vitamin B1) 100 mg tablet 100 mg PO DAILY 30 Days Qty: 30 2RF ciprofloxacin HCl [Cipro] 500 mg tablet 500 mg PO BID 3 Days Qty: 6 0RF Continued Probiotic Digest(Lacto,Bifido) 1.5 billion cell capsule 1 cap PO BID nabumetone 500 mg tablet 500 mg PO BID PRN (Reason: pain (scale score 1-3)) (DME) spacer See Rx Instructions .ROUTE .MEDSUPPLY Qty: 1 0RF Rx Instructions: As directed (DME) blood-glucose meter [FreeStyle Lite Meter] Kit See Rx Instructions .MEDSUPPLY Qty: 1 0RF Rx Instructions: As directed, check blood glucose daily for type 2 DM metformin 500 mg tablet extended release 24 hr 500 mg PO QDAY Qty: 30 1RF rosuvastatin 10 mg tablet 10 mg PO DAILY Rx Instructions: PT CURRENTLY TAKING 10MG INCREASED TO 20MG BY DR JALLOH BUT PT HAS NOT INCREASED AT HOME venlafaxine 150 mg capsule,extended release 24hr 150 mg PO QHS Prolia 60 mg/mL syringe 60 mg subcut [id number] Qty: 1 2RF (DME) FreeStyle Lite Strips Strip See Rx Instructions .MEDSUPPLY Qty: 100 3RF Rx Instructions: check blood glucose daily for type 2 DM cholecalciferol (vitamin D3) 1,250 mcg (50,000 unit) capsule 1,250 mcg PO QWEEK Qty: 14 3RF spironolactone 50 mg tablet 50 mg PO QAM Qty: 90 1RF (DME) OneTouch Verio test strips Strip See Rx Instructions .Route Qty: 200 3RF Rx Instructions: Check Blood Glucose BID famotidine 40 mg tablet 40 mg PO DAILY 90 Days Qty: 90 3RF cetirizine 10 mg tablet 10 mg PO DAILY PRN (Reason: allergy symptoms) Qty: 90 0RF fluticasone furoate-vilanterol [Breo Ellipta] 200-25 mcg/dose blister with device 1 inh inhalation QDAY Qty: 60 6RF Rx Instructions: after inhalation, rinse mouth with water and spit out; do not swallow albuterol sulfate 90 mcg/actuation HFA aerosol inhaler 2 puff inhalation Q4H PRN (Reason: shortness of breath or wheezing) Qty: 8.5 6RF Rx Instructions: administer with spacer (DME) lancets [FreeStyle Lancets] 28 gauge misc See Rx Instructions .MEDSUPPLY Qty: 200 10RF Rx Instructions: check blood glucose daily for type 2 DM fluticasone propionate 50 mcg/actuation spray,suspension 2 spray intranasal DAILY Qty: 16 11RF montelukast 10 mg tablet 10 mg PO QPM Qty: 30 11RF (DME) Onetouch Verio Lancing Device See Rx Instructions .Route .MEDSUPPLY Qty: 200 10RF Rx Instructions: As directed Changed nifedipine 10 mg capsule 10 mg PO BID Qty: 30 0RF Rx Instructions: Take one hour before meal Hold for SBP less than 130 mmHg baclofen 10 mg tablet 5 mg PO TID PRN (Reason: muscle pain/muscle spasm) Qty: 90 5RF metoprolol tartrate 50 mg tablet 25 mg PO BID Qty: 180 3RF Discontinued amitriptyline 100 mg tablet 100 mg PO QHS Qty: 30 3RF zolpidem 10 mg tablet 10 mg PO QHS PRN (Reason: insomnia) Qty: 30 0RF Referrals / Follow Up: Ryan Leyva MD [Primary Care Provider] - Joselito Bhandari MD [Non-Staff -Ordering Privileges] - Within 1 Month Charges/Coding Visit Charges Inpatient E&M: 45987 Disch Hosp >30min
[2025-01-25 20:08] LABS: Vitamin B1, Thiamine 86.7 nmol/L (66.5-200.0)
== END 2025-01-22 14:40 | disposition home or self-care (01) | DRG 689 ==
LOC: ED 17:10 → PCU 17:34
PROVIDERS: Admitting Provider Internal Medicine; Emergency Provider Emergency Medicine; PCP Internal Medicine; Referring Provider Emergency Medicine; Visit Provider Internal Medicine
DX: N39.0 Urinary tract infection, site not specified (principal); G93.41 Metabolic encephalopathy; G92.8 Other toxic encephalopathy; J82.83 Eosinophilic asthma; Z68.41 Body mass index [BMI] 40.0-44.9, adult; E11.9 Type 2 diabetes mellitus without complications; E66.01 Morbid (severe) obesity due to excess calories; E53.8 Deficiency of other specified B group vitamins; B96.89 Other specified bacterial agents as the cause of diseases classified elsewhere; J44.9 Chronic obstructive pulmonary disease, unspecified; I10 Essential (primary) hypertension; F32.A Depression, unspecified; K75.81 Nonalcoholic steatohepatitis (NASH); E78.00 Pure hypercholesterolemia, unspecified; M79.7 Fibromyalgia; F41.9 Anxiety disorder, unspecified; K21.9 Gastro-esophageal reflux disease without esophagitis; G47.33 Obstructive sleep apnea (adult) (pediatric); R44.1 Visual hallucinations; T50.915A Adverse effect of multiple unspecified drugs, medicaments and biological substances, initial encounter; R29.6 Repeated falls; G47.00 Insomnia, unspecified; Z91.199 Patient's noncompliance with other medical treatment and regimen due to unspecified reason; G89.29 Other chronic pain; Z79.1 Long term (current) use of non-steroidal anti-inflammatories (NSAID); Z79.84 Long term (current) use of oral hypoglycemic drugs; Z79.51 Long term (current) use of inhaled steroids; Z79.899 Other long term (current) drug therapy
CPT/HCPCS: 36415; 70450; 71045; 72125; 80048; 80053; 80307; 81001; 82140; 82550; 82607; 82746; 82803; 82962; 84425; 84443; 85025; 87077; 87086; 87088; 87186; 87631; 93005; 94640; 97162; 97166; 97530; 97802; 99285; A4216; J3420

== ENCOUNTER → 2025-02-03 | Outpatient (CLI) | payer MEDICARE, SELFPAY | END | disposition home or self-care (01) | LOC: SL 12:47 | PROVIDERS: PCP Internal Medicine; Referring Provider Nurse Practitioner Family; Visit Provider Nurse Practitioner Family | DX: G47.30 Sleep apnea, unspecified (principal) | CPT/HCPCS: 98960; G0463 ==

== ENCOUNTER 2025-02-09 10:51 | Outpatient (RCR) | payer MEDICARE, SELFPAY ==
--- NOTE | 2025-02-09 12:48 | HP.OTEVAL_ITS ---
Patient's Visit Information Visit Information Visit Information: NATALIA MARQUEZ is a 64 year old F, referred to Occupational Therapy by Dr. Cristian Perales MD, with a diagnosis of Falls R29.6, weakness R53.1, heart failure I50.9. Date of Evaluation: 02/09/25 Occupational Therapist: Madonna Rojas Subjective Subjective: This 64 year old female arrives with dx of falls per pt unknown as to why falls are occuring. Pt arrives for eval with daughter. Per daughter started approx 6 months ago initially once every other week progressively getting worse to point pt is falling about every other day with increased confusion with spells of hallucinations. ER ruled out stroke. neurologist found she was on medications that did not interact well together -- she has now been taken off of everything other than depression medication as well as vitamins as of last week. per pt she has not had any hallucinations or falls since change in medications made. Family has been with pt around the clock per report however pt does live with significant other in own home. pt as well as family member deny falls being a result of safety concern and or environmental concerns and is correlated to the hallucinations pt was having. Objective Objective/Observation: pt arrives no AD for mobility per pt she will furniture walk due to close quarters ROM Shoulder: wfl Elbow: wfl Forearm: wfl Wrist: wfl Opposition: wfl Strength Shoulder: L shoulder flexion 14.8# R shoulder flexion: 12.6# Elbow: L bicep: 21.4# R bicep: 17.4# L tricep: 7.9# R tricep 7.3# Gas Line Installer: R 35# L 25# Lateral Pinch: R 8# L 5# Tripod Pinch: R 8# L 5# Strength Comments: L ER: 12.9# R ER: 13.2# pt had R shoulder surgery -- per pt cleaned out rotator cuff not replaced Edema Other: none Sensation Sensation Comments: denies Nine Hole Peg Comments: n/a Quick DASH-Disab of Arm,Shoulder& Hand Quick DASH Score: [id number] Rehabilitation General Assessment: This 64 year old female arrives with dx of falls, weakness as well as heart failure. Pt demonstrates appropriate equivalent ROM as well as strength on B sides. pt denies issues with coordination and or sensation at this time. per family and pt report pt not falling due to any safety or environmental issues more so due to hallucinations pt is having. Pt and family deny need for training or set up with strengthening program at this time. Pt plans to utilize her [employer] benefit. Pt not requiring skills OT at this time and pt as well as family member in agreeance. Rehabilitation Potential: Questionable Anticipated Interventions Other Interventions: n/a Visit Plan General Plan: n/a TEXT: Thank you for the opportunity to evaluate your patient. For Medicare and Medicare HMO plans, please review the plan of care and approve it. It will need to be FAXED BACK to us at [phone] for Medicare purposes. Please let me know if there are questions or concerns regarding this plan of care. Physician Signature: Date:
--- NOTE | 2025-02-09 12:49 | HP.OT.NRP ---
Patient Information Patient Information: NATALIA MARQUEZ was seen in my office for initial evaluation on 02/09/25. The following Plan of Care was established for this patient: Anticipated Interventions Other Interventions: n/a Last Seen Last Seen: This patient was last seen in our office 02/09/25. Pertinent comments regarding their Occupational therapy will appear below: pt seen for eval only this date as OT services not indicated at this time with pt as well as family in agreeance. At this point I will be discontinuing this patient from occupational therapy. I would be happy to see this patient again in the future if found appropriate by the physician. Thank you! Madonna Rojas
== END 2025-02-09 19:00 | disposition home or self-care (01) ==
LOC: PT 10:51
PROVIDERS: PCP Internal Medicine; Referring Provider Internal Medicine; Visit Provider Internal Medicine
DX: R53.1 Weakness (principal); R29.6 Repeated falls; I50.9 Heart failure, unspecified
CPT/HCPCS: 97165

== ENCOUNTER 2025-03-02 12:06 | Outpatient (CLI) | payer MEDICARE, SELFPAY ==
[2025-03-02 12:33] VITALS: PULSE 101; PULSE 103; PULSE 83; PULSE 85; PULSE 95; PULSE 98; O2SAT 95; O2SAT 96; O2SAT 97; O2SAT 98
--- NOTE | 2025-03-09 12:41 | PCM.PSN.6M ---
PSN 6 Minute Walk Test 6 Minute Walk Test 6 Minute Walk Test: 6 Minute Walk Test PSN:6-Minute Walk Test Start: 03/02/25 12:33 Freq: Status: Discharge Protocol: [id number] Document 03/02/25 12:33 HELENAQUINTIN (Rec: 03/02/25 12:36 HUONG [id number]) 6 Minute Walk Test Date Performed 03/02/25 Time Performed 12:20 Height 5 ft 5 in Weight: 210 lb Weight in Pounds 210.[address]: Zoraida Patricio Assistive device None used: Pre-test Oxygen Delivery Room Air Method Pulse Ox (%) 95 Pulse Rate (60-100 85 beats/min) Dyspnea Sebastian Scale ( 0 0-10) Exertion Sebastian Scale 6 (6-20) 1st minute Oxygen Delivery Room Air Method Pulse Ox (%) 97 Pulse Rate (60-100 95 beats/min) 2nd minute Oxygen Delivery Room Air Method Pulse Ox (%) 95 Pulse Rate (60-100 98 beats/min) 3rd minute Oxygen Delivery Room Air Method Pulse Ox (%) 96 Pulse Rate (60-100 101 H beats/min) 4th minute Oxygen Delivery Room Air Method Pulse Ox (%) 98 Pulse Rate (60-100 101 H beats/min) 5th minute Oxygen Delivery Room Air Method Pulse Ox (%) 98 Pulse Rate (60-100 103 H beats/min) 6th minute Oxygen Delivery Room Air Method Pulse Ox (%) 97 Pulse Rate (60-100 103 H beats/min) Dyspnea Sebastian Scale ( 2 0-10) Exertion Sebastian Scale 13 (6-20) Post-test Oxygen Delivery Room Air Method Pulse Ox (%) 98 Pulse Rate (60-100 83 beats/min) Full Laps Walked 17 Partial Lap, Number 7 of Tiles Walked Total Distance 1010 Walked (ft) Interpretation Interpretation: The patient ambulated 1010 feet over the course of 6 minutes beginning on room air without assistive devices. Pretesting oxygen saturation was noted to be 95% on room air. With ambulation, the erica oxygen saturation was 95%. There was no significant exertional oxygen desaturation. Recommendations Recommendations: There is no indication for the use of supplemental oxygen at this time.
== END 2025-03-02 23:59 | disposition home or self-care (01) ==
LOC: PSN 12:08
PROVIDERS: PCP Internal Medicine; Referring Provider Nurse Practitioner Family; Visit Provider Nurse Practitioner Family
DX: J45.50 Severe persistent asthma, uncomplicated (principal); J82.83 Eosinophilic asthma
CPT/HCPCS: 94618

== ENCOUNTER 2025-03-17 08:17 | Outpatient (CLI) | payer MEDICARE, SELFPAY | END 2025-03-17 23:59 | disposition home or self-care (01) | LOC: PSN 08:18 | PROVIDERS: PCP Internal Medicine; Referring Provider Nurse Practitioner Family; Visit Provider Nurse Practitioner Family | DX: J45.50 Severe persistent asthma, uncomplicated (principal); J82.83 Eosinophilic asthma | CPT/HCPCS: 94060; 94726; 94729 ==

== ENCOUNTER → 2025-04-13 | Outpatient (CLI) | payer MEDICARE, SELFPAY ==
[2025-04-13 17:52] LABS: Anion Gap 12 (5-15); BUN 8 mg/dL (4-19); BUN/Creat Ratio 8.5 RATIO (10-20); Calcium,Total 10.2 mg/dL (7.6-11.0); Carbon Dioxide 24.1 mmol/L (21.0-32.0); Chloride 100 mmol/L (98-108); Creatinine, Serum 0.91 mg/dL (0.70-1.20); EST Glomerular Filtration Rate 70 (>60); Glucose 119 mg/dL (70-99); Potassium 3.2 mmol/L (3.3-5.1); Sodium Level 137 mmol/L (133-145)
== END | disposition home or self-care (01) ==
LOC: BIMLAB 14:33
PROVIDERS: PCP Internal Medicine; Referring Provider Internal Medicine; Visit Provider Internal Medicine
DX: E11.9 Type 2 diabetes mellitus without complications (principal); I10 Essential (primary) hypertension
CPT/HCPCS: 36415; 80048; 84439; 84443

== ENCOUNTER → 2025-05-18 | Outpatient (CLI) | payer MEDICARE, SELFPAY ==
[2025-05-18 18:03] LABS: Anion Gap 12 (5-15); BUN 13 mg/dL (4-19); BUN/Creat Ratio 15.7 RATIO (10-20); Calcium,Total 9.1 mg/dL (7.6-11.0); Carbon Dioxide 25.4 mmol/L (21.0-32.0); Chloride 100 mmol/L (98-108); EST Glomerular Filtration Rate 81 (>60); Glucose 137 mg/dL (70-99); Potassium 3.1 mmol/L (3.3-5.1); Sodium Level 137 mmol/L (133-145)
== END | disposition home or self-care (01) ==
LOC: LAB 16:29
PROVIDERS: Internal Medicine Cardiovascular Disease; PCP Internal Medicine; Referring Provider Internal Medicine; Visit Provider Internal Medicine
DX: E11.9 Type 2 diabetes mellitus without complications (principal); I10 Essential (primary) hypertension
CPT/HCPCS: 36415; 80048

== ENCOUNTER → 2025-06-23 | Outpatient (CLI) | payer MEDICARE, SELFPAY ==
--- OUTSIDE RECORDS SUMMARY | 2025-06-23 07:16 | XMS RPT_ITS | CCD ---
Author Organization [facility] Care Team Providers Care Cooky Machine Operator Name Role Phone ROWDY PAREDES Unavailable Unavailable ROWDY PAREDES Unavailable Unavailable Dr. Ryan Leyva Primary Care Provider [phone] Rebecca Adame Attending Provider Unavailable Dr. Ryan Leyva Attending Provider [phone] Dr. Ryan Leyva Referring Provider [phone] Dr. Ryan Leyva Primary Care Provider 1(33 0) Maninder SIZING MACHINE TENDER, SIZING MACHINE TENDER-C Gretchen Hooker Attending Provider 1(3 30) Ryan Leyva MD Primary Care Provider 1(3 30) Dr. Casey Summers Attending Provider 1(330) Dr. Casey Summers Other Provider [phone])- Dr. Ryan Leyva Primary Care Provider 1(33 0) Dr. Ryan Leyva Attending Provider [phone] Dr. Ryan Leyva Referring Provider [phone] Maninder SIZING MACHINE TENDER, SIZING MACHINE TENDER-C Gretchen Hooker Referring Provider 1(3 30) Maninder SIZING MACHINE TENDER, SIZING MACHINE TENDER-C Gretchen Hooker Other Provider Dr. Ryan Leyva Primary Care Provider 1(33 0) Dr. Ryan Leyva Referring Provider [phone] Dr. Ryan Leyva Attending Provider [phone] WOOD Paul Attending Provider 1(330) Dr. Sim Branch Attending Provider [phone] Ryan Leyva Primary Care Provider 1(33 0) Dr. Ryan Leyva Referring Provider [phone] Maninder SIZING MACHINE TENDER, SIZING MACHINE TENDER-C Gretchen Hooker Attending Provider 1(3 30) Dr. Ryan Leyva Primary Care Provider 1(33 0) Dr. Ryan Leyva Referring Provider [phone] Maninder SIZING MACHINE TENDER, SIZING MACHINE TENDER-C Gretchen M Attending Provider 1(3 30) Dr. Ryan Leyva Attending Provider [phone] Dr. Casey Summers Attending Provider 1(330) Dr. Casey Summers Other Provider 1(330) Ryan Leyva MD Primary Care Provider 1(3 30) Dr. Ryan Leyva Primary Care Provider 1(33 0) Dr. Ryan Leyva Referring Provider [phone] Maninder SIZING MACHINE TENDER, SIZING MACHINE TENDER-C Gretchen Hooker Attending Provider 1(3 30) Dr. Joselito Bhandari Attending Provider [phone] Dr. Joselito Bhandari Referring Provider Dr. Guzman Yu Attending Provider [phone])- Dr. Wilton Dominguez Attending Provider [phone] Dr. Sim Branch Attending Provider [phone] Ryan Leyva Primary Care Provider 1(33 0) Dr. Ryan Leyva Referring Provider [phone])2 Dr. Casey Summers Attending Provider 1(330) Dr. Casey Summers Other Provider 1(330) Maninder SIZING MACHINE TENDER, SIZING MACHINE TENDER-C Gretchen Hooker Attending Provider 1(3 30) Dr. Joselito Bhandari Attending Provider Dr. Joselito Bhandari Referring Provider [phone] Dr. Guzman Yu Attending Provider [phone] Ryan Leyva Attending Provider [phone] Dr. Wilton Dominguez Attending Provider [phone] Dr. Sim Branch Attending Provider [phone] SHARON MURRELL, DR HOGAN Primary Care [facility] ODESSA Juárez Attending Unavailable Autumn, Dr. Davis Primary Care Provider 1(33 0) Autumn, Dr. Davis Referring Provider [phone] Maninder SIZING MACHINE TENDER, DIANN-Monroe Hooker Attending Provider 1(3 30) Dr. Ryan Leyva Primary Care Provider [phone] Dr. Ryan Leyva Attending Provider [phone])2 Dr. Ryan Leyva Referring Provider [phone])2 Autumn, Dr. Davis Other Provider [phone] Dr. Kip Ortiz Attending Provider [phone] Dr. Ryan Leyva Primary Care Provider 1(33 0) Autumn, Dr. Davis Attending Provider [phone])2 Dr. Ryan Leyva Referring Provider [phone])2 Dr. Ryan Leyva Other Provider [phone] Dr. Kip Ortiz Attending Provider [phone] Dr. Gala Arrington Attending Provider 1(330) Dr. Casey Summers Attending Provider 1(330) Dr. Casey Summers Other Provider [phone] Ryan Leyva Primary Care Provider [phone] Autumn, Dr. Davis Referring Provider [phone] Dr. Kip Ortiz Attending Provider [phone] Dr. Cristian Perales Attending Provider Dr. Ryan Leyva Attending Provider Dr. Ryan Leyva Primary Care Provider Autumn, Dr. Davis Attending Provider Autumn, Dr. Davis Referring Provider [phone] Henrry SIZING MACHINE TENDER, SIZING MACHINE TENDER-C Leigh Attending Provider Dr. Rob Colbert Attending Provider Dr. Sim Branch Attending Provider Dr. Cristian Perales Attending Provider Diaz MURRELL, Dr. Foster Attending Provider Autumn MURRELL, Dr. Davis Primary Care Provider Autumn MURRELL, Dr. Davis Attending Provider Autumn MURRELL, Dr. Davis Referring Provider Dr. Maris Bland DO Referring Provider Dr. Maris Bland DO Emergency Provider Geraldo MURRELL, Dr. Mcgrath Admit Provider Geraldo MURRELL, Dr. Mcgrath Other Provider Diaz MURRELL, Dr. Foster Other Provider Ronak MURRELL, Dr. Rush Other Provider [phone] Rona Curry MD Other Provider Anna MURRELL, Dr. Perry Other Provider [phone] Dr. Moises Larson MD Other Provider Cam Cruz MD Other Provider Unavailable Sisi MURRELL, Dr. Broussard Other Provider Bailey MURRELL, Dr. Mccloud Other Provider Sonja MURRELL, Fracisco Other Provider Unavailable Yojana Kang MD Other Provider Unavailable Omi MURRELL, Dr. Parson Other Provider Collin DE LA CRUZ, Dr. Hyde Other Provider Fabiola MURRELL, Dr. Banda Other Provider Reece MURRELL, Dr. Bolaños Other Provider Mazin MURRELL, Dr. Kasper Other Provider Unavailable Geovani MURRELL, Dr. Majano Other Provider Patrice MURRELL, Dr. Romero Other Provider Eh MURRELL, Dr. Stinson Other Provider Yobany MURRELL, Dr. Short Other Provider Malissa MURRELL, Dr. Lizz Cristina Other Provider Ian MURRELL, Dr. Ortez Other Provider Thony MURRELL, Dr. Yee Attending Provider [phone] Sintia SIZING MACHINE TENDER-CZoraida Attending Provider Sintia SIZING MACHINE TENDER-CZoraida Referring Provider Diaz MURRELL, Dr. Foster Referring Provider Diaz MURRELL, Dr. Foster Attending Provider Sintia TIDWELL-CZoraida Other Provider [phone] Angel DE LA CRUZ, Dr. Shin Attending Provider Autumn MURRELL, Dr. Davis Attending Provider Dr. Ryan Leyva MD Referring Provider Autumn MURRELL, Dr. Davis Primary Care Provider NURSE, BIM Attending Provider Unavailable Craig MURRELL, Dr. Charlton Attending Provider Tanesha GRACIA, Javi Attending Provider UnavailJohann Paz Attending Provider Autumn MURRELL, Dr. Davis Referring Provider Oleghe MD, Dr. Efewongbe Attending Provider Autumn MURRELL, Efestrellitaongedel Primary Care Provider Diaz MURRELL, Dr. Foster Attending Provider Craig MURRELL, Dr. Charlton Other Provider Oleghe, Efewongbe Primary Care Unavailable Henrry TIDWELL, Leigh Attending Unavailable Oleghe, Efewongbe Referring Unavailable Zoraida Patricio Referring Unavailable Zoraida Patricio Attending Unavailable Oleghe, Efewongbe Primary Care Unavailable Casey Summers Attending Unavailable Oleghe, Efewongbe Primary Care Unavailable Oleghe, Efewongbe Referring Unavailable Oleghe, Efewongbe Attending Unavailable Oleghe, Efewongbe Primary Care Unavailable Zoraida Patricio Referring Unavailable Zoraida Patricio Attending Unavailable Oleghe, Efewongbe Primary Care Unavailable Joselito Bhandari Attending Unavailable Joselito Bhandari Referring Unavailable Oleghe, Efewongbe Primary Care Unavailable Latesha Srinivasan Attending Unavailable Latesha Srinivasan Referring Unavailable Latesha Srinivasan Consulting Unavailable Oleghe, Efewongbe Primary Care Unavailable Ramila Chow Consulting Unavailable Ramila Chow Admitting Unavailable Maris Bland Referring Unavailable Oleghe, Efewongbe Primary Care Unavailable Cristian Perales Attending Unavailable Casey Summers Attending Unavailable Oleghe, Efewongbe Referring Unavailable Oleghe, Efewongbe Primary Care Unavailable Oleghe, Efewongbe Primary Care Unavailable Cristian Perales Referring Unavailable Cristian Perales Attending Unavailable Zoraida Patricio Attending Unavailable Zoraida Patricio Referring Unavailable Oleghe, Efewongbe Primary Care Unavailable Rowdy Gil Referring Unavailable Oleghe, Efewongbe Primary Care Unavailable Rowdy Gil Attending Unavailable Oleghe, Efewongbe Referring Unavailable Oleghe, Efewongbe Attending Unavailable Oleghe, Efewongbe Primary Care Unavailable Cristian Perales Consulting Unavailable Lesia Garzon Consulting Unavailable Oleghe, Efewongbe Attending Unavailable Latesha Srinivasan Consulting Unavailable Oleghe, Efewongbe Referring Unavailable Oleghe, Efewongbe Primary Care Unavailable Cristian Perales Referring Unavailable [facility] Attending Unavailable Oleghe, Efewongbe Primary Care Unavailable Oleghe, Efewongbe Attending Unavailable Oleghe, Efewongbe Referring Unavailable Oleghe, Efewongbe Primary Care Unavailable Oleghe, Efewongbe Attending Unavailable Oleghe, Efewongbe Referring Unavailable Oleghe, Efewongbe Primary Care Unavailable Zoraida Patricio Attending Unavailable Oleghe, Efewongbe Primary Care Unavailable Zoraida Patricio Referring Unavailable Oleghe, Efewongbe Referring Unavailable Oleghe, Efewongbe Attending Unavailable Oleghe, Efewongbe Primary Care Unavailable Zoraida Patricio Attending Unavailable Oleghe, Efewongbe Referring Unavailable Oleghe, Efewongbe Primary Care Unavailable Rogers Paul Attending Unavailable Oleghe, Efewongbe Referring Unavailable Oleghe, Efewongbe Primary Care Unavailable Oleghe, Efewongbe Referring Unavailable Oleghe, Efewongbe Attending Unavailable Oleghe, Efewongbe Primary Care Unavailable Oleghe, Efewongbe Primary Care Unavailable [facility] Attending Unavailable [facility] Referring Unavailable [facility] Attending Unavailable Rogers Paul Referring Unavailable Oleghe, Efewongbe Primary Care Unavailable Rogers Paul Attending Unavailable Oleghe, Efewongbe Referring Unavailable Oleghe, Efewongbe Primary Care Unavailable Samy Ortiz Attending Unavailable Oleghe, Efewongbe Referring Unavailable Oleghe, Efewongbe Primary Care Unavailable Joselito Bhandari Attending Unavailable Oleghe, Efewongbe Referring Unavailable Joselito Bhandari Attending Unavailable Oleghe, Efewongbe Primary Care Unavailable Oleghe, Efewongbe Referring Unavailable [facility] Attending Unavailable Oleghe, Efewongbe Primary Care Unavailable Oleghe, Efewongbe Referring Unavailable Joselito Bhandari Attending Unavailable Oleghe, Efewongbe Primary Care Unavailable Oleghe, Efewongbe Referring Unavailable Oleghe, Efewongbe Attending Unavailable Oleghe, Efewongbe Primary Care Unavailable Oleghe, Efewongbe Referring Unavailable Oleghe, Efewongbe Attending Unavailable Zoraida Patricio Attending Unavailable Oleghe, Efewongbe Referring Unavailable Oleghe, Efewongbe Primary Care Unavailable Javi Almendarez Attending Unavailable Oleghe, Efewongbe Primary Care Unavailable Latesha Srinivasan Attending Unavailable Oleghe, Efewongbe Referring Unavailable Oleghe, Efewongbe Primary Care Unavailable Zoraida Patricio Consulting Unavailable Kip Ortiz Attending Unavailable Zoraida Patricio Referring Unavailable Oleghe, Efewongbe Primary Care Unavailable Melina, Casey Attending Unavailable Oleghe, Efewongbe Referring Unavailable Oleghe, Efewongbe Primary Care Unavailable Melina, Casey Consulting Unavailable Ramila Chow Admitting Unavailable Maris Bland Referring Unavailable Ramila Chow Consulting Unavailable Diaz, Cristian Attending Unavailable Oleghe, Efewongbe Primary Care Unavailable Adri Simons Consulting Unavailable Rona Curry Consulting Unavailable Orlando Castillo Consulting Unavailable Moises Larson Consulting Unavailable Cam Cruz Consulting Unavailable Boob Laird Consulting Unavailable Rogers Avalos Consulting Unavailable Fracisco Casillas Consulting Unavailable Yojana Kang Consulting Unavailable Braga, Rami Consulting Unavailable Collin Mary Ellen Consulting Unavailable FabiolaVeronika leiva Consulting Unavailable Miky Newell Consulting Unavailable Majo Retana Consulting Unavailable Gretel Olivo Consulting Unavailable Nick Ibrahim Consulting Unavailable Shantell Stauffer Consulting Unavailable Han Haywood Consulting Unavailable Lizz Leonardo Consulting UnavailNeelima Newton Consulting Unavailable Diaz, Cristian Consulting Unavailable Ramila Chow Attending Unavailable Zoraida Patricio Referring Unavailable Kip Ortiz Attending Unavailable Oleghe, Efewongbe Primary Care Unavailable Oleghe, Efewongbe Primary Care Unavailable Diaz, Cristian Attending Unavailable Oleghe, Efewongbe Referring Unavailable Oleghe, Efewongbe Attending Unavailable Oleghe, Efewongbe Referring Unavailable Oleghe, Efewongbe Primary Care Unavailable Oleghe, Efewongbe Attending Unavailable Oleghe, Efewongbe Referring Unavailable Oleghe, Efewongbe Primary Care Unavailable Latesha Srinivasan Attending Unavailable Oleghe, Efewongbe Referring Unavailable Oleghe, Efewongbe Primary Care Unavailable Johann Lockhart Attending Unavailable Oleghe, Efewongbe Referring Unavailable Oleghe Anahyongedel Primary Care Unavailable Autumn Anahyongbe Referring Unavailable Zoraida Patricio Attending Unavailable [facility] Jamedel Primary Care Unavailable Allergies Allergy Classification Reported Allergen(s) Allergy Type Date of Onset Reaction(s) Facility (4 sources) buPROPion; Translations: [BUPROPION HCL] Drug Allergy 2 Mental Status Change [facility] Repository (4 sources) FLUoxetine; Translations: [FLUOXETINE HCL] Drug Allergy [address] [facility] Repository (4 sources) oxyCODONE; Translations: [OXYCODONE] Drug Allergy [address] [facility] Repository (4 sources) PARoxetine; Translations: [PAROXETINE HCL] Drug Allergy [address] [facility] Repository (20 sources) Penicillins; Translations: [PENICILLINS] Propensity to adverse reactions to drug (disorder) [address] [facility] Repository (20 sources) buPROPion Drug Allergy 2 suicidal thoughts [facility] (20 sources) oxyCODONE; Translations: [oxycodone HCl] Drug Allergy 2 Itching [facility] (20 sources) PARoxetine Drug Allergy 2 suicidal thoughts [facility] (3 sources) Acetaminophen / HYDROcodone Drug Allergy [address] [facility] (1 source) buPROPion Drug Allergy 5 [facility] Repository (1 source) PARoxetine Drug Allergy 5 [facility] Repository Medications Current Medications Medication Drug Class(es) Dates Sig (Normalized) Sig (Original) [id number] 200 actuat albuterol 0.09 mg/actuat metered dose inhaler (20 sources) beta2-Adrenergic Agonist Start: 11-04-2023 End: 05-24-2025 Start: 11-04-2023 Start: 11-04-2023 take 1 puff(s) by in halation every four hours Albuterol Sulfate Active 2 PUFF INHALATION Q4H 8.5 November 04, 2023 12:00am administer with spacer Start: 03-21-2023 take 1 puff(s) by in halation every six hours Albuterol Sulfate Active 2 PUFF INHALATION EVERY 6 HOURS 8.5 March 21, 2023 12:00am cephalexin 250 mg oral capsule (20 sources) Cephalosporin Antibacterial Start: 08-06-2023 Cephalexin Active 250 MG PO August 06, 2023 12:00am prior to dental procedure Start: 03-21-2023 Cephalexin Act melissa 250 MG PO March 21, 2023 12:00am Start: 03-03-2023 End: 08-06-2023 Start: 03-03-2023 End: 08-06-2023 take 2000 mg by mouth once Cephalexin Discontinued 200 0 MG PO ONCE 4 March 02, 2023 11:00pm August 06, 2023 10:37am Take within 1 hour prior to dental procedure Start: 01-31-2022 End: 04-08-2022 Start: 08-15-2021 End: 08-28-2021 Start: 11-13-2020 End: 12-11-2020 take 1 capsule by mouth once Cephalexin (Keflex) 500 m g capsule Discontinued 500 MG PO ONCE November 13, 2020 12:00am December 11, 2020 1:17pm take within 1 hr prior to dental procedure Start: 07-06-2020 End: 12-13-2020 Start: 09-20-2019 End: 09-30-2019 Start: 09-20-2019 End: 09-30-2019 take 500 mg by mouth every twelve hours Cephalexin Discontinued 500 MG PO Q12H 20 September 19, 2019 11:00pm September 29, 2019 11:08pm cetirizine hydrochloride 10 mg oral tablet (20 sources) Histamine-1 Receptor Antagonist Start: 01-21-2024 End: 10-12-2024 Start: 01-21-2024 cholecalciferol 0.125 mg ora l capsule (20 sources) Vitamin D Start: 02-15-2025 End: 05-24-2025 Start: 01-29-2022 End: 02-15-2025 Start: 01-29-2022 End: 12-02-2023 take 1250 ug by mouth every week Cholecalciferol (Vitamin D3) Discontinued 1250 MCG PO EVERY WEEK November 18, 2022 10:45am December 02, 2023 12:21pm Comment on above: Take 1 capsule by mo [facility] one time a week. 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 30 tablet 5 03/31/2020 Active Comment on above: Take 1 tablet by [facility] once daily. 24 hr fesoterodine fumarate 4 mg extended release oral tablet (6 sources) Start: 03-21-2023 take 1 tablet by mouth once daily Fesoterodine (Toviaz) 4 mg tablet extended release 24 hr Active 4 MG PO DAILY March 20, 2023 11:00pm Start: 03-21-2023 Fesoterodine ( Toviaz) 4 mg tablet extended release 24 hr Active EACH PO March 21, 2023 12:00am 30 actuat fluticasone furoate 0.2 mg/actuat / vilanterol 0.025 mg/actuat dry powder inhaler (20 sources) Corticosteroid, beta2-Adrenergic Agonist Start: 10-13-2024 End: 02-02-2025 L.Acid,Yvette,Rham-B .Bifid,Long (Probiotic Digest(Lacto,Bifid o)) 1.5 billion cell capsule (20 sources) Start: 12-06-2021 take 1.5 capsules by mouth twice daily L.Acid,Yvette,R ham-B.Bifid,L kerline (Probiotic Digest(Lacto, Bifido)) 1.5 billion cell capsule Active 1 CAP PO .BID December 06, 2021 5:25pm Start: 12-06-2021 take 1.5 capsules by mouth twice daily L.Acid,Yvette,Rham-B.Bifid,Long (Probiotic Digest(Lacto,Bifido)) 1.5 billion cell capsule Active CAP PO .BID December 06, 2021 5:25pm Start: 12-06-2021 take 1.5 capsules by mouth twice daily L.Acid,Yvette,Rham-B.Bifid,Long (Probiotic Digest(Lacto,Bifido)) 1.5 billion cell capsule Active 1 CAP PO .BID December 06, 2021 12:00am Start: 12-06-2021 take 1.5 capsules by mouth twice daily L.Acid,Yvette,Rham-B.Bifid,Long (Probiotic Digest(Lacto,Bifido)) 1.5 billion cell capsule Active 1 CAP PO .BID December 06, 2021 1:00am Lbcxjo-Tyrwnplw-Rfehmvf (Paul pep) 40,000-126,000- 168,000 unit capsule,delayed release(DR/EC) (7 sources) Start: 01-24-2023 Lipase-Proteas e-Amylase (Zenpep) 40,000-126,000- 168,000 unit capsule,delayed release(DR/EC) Active 0 PO .COMPLEX 360 January 24, 2023 12:00am take 1-2 capsules with snacks, take 2-3 capsules with meals Start: 01-24-2023 Lipase-Proteas e-Amylase (Zenpep) 40,000-126,000- 168,000 unit capsule,delayed release(DR/EC) Active 0 PO .COMPLEX 360 January 24, 2023 1:00am take 1-2 capsules with snacks, take 2-3 capsules with meals losartan potassium 25 mg ora l tablet (3 sources) Angiotensin 2 Receptor Zoya Start: 04-28-2025 24 hr metFORMIN hydrochlorid e 500 mg extended release oral tablet (19 sources) Biguanide Start: 01-05-2025 End: 03-10-2025 montelukast 10 mg oral table t (20 sources) Leukotriene Receptor Antagonist Start: 03-11-2024 End: 05-24-2025 Start: 03-11-2024 potassium chloride 20 meq ex tended release oral tablet (20 sources) Start: 04-14-2025 End: 05-19-2025 Start: 07-06-2020 End: 03-25-2024 Start: 07-06-2020 End: 07-10-2020 take 20 mEq by mouth twice daily Potassium Chloride Discontinued 20 MEQ PO TWICE A DAY 180 90 July 05, 2020 11:00pm July 10, 2020 10:44am Start: 10-07-2018 End: 07-06-2020 Start: 09-09-2018 potassium chlo ride (K-TAB) 10 mEq tablet Indications: Hypokalemia Take one pill four times daily for two days, then as directed 60 tablet 2 09/09/2018 Active Comment on above: Take one pill four t imes daily for two days, then as directed predniSONE 10 mg oral tablet (20 sources) Start: 05-04-2025 Start: 07-29-2024 End: 10-22-2024 Start: 03-21-2023 End: 04-14-2023 rosuvastatin calcium 10 mg o ral tablet (20 sources) HMG-CoA Reductase Inhibitor Start: 01-20-2025 Start: 11-16-2024 End: 01-20-2025 Start: 03-16-2024 End: 11-16-2024 Start: 03-16-2024 spironolactone 50 mg oral ta blet (20 sources) Aldosterone Antagonist Start: 03-25-2024 End: 05-24-2025 Start: 03-25-2024 traZODone hydrochloride 50 m g oral tablet (8 sources) Serotonin Reuptake Inhibitor Start: 03-31-2025 valACYclovir 1000 mg oral ta blet (3 sources) Herpesvirus Nucleoside Analog DNA Polymerase Inhibitor, Herpes Simplex Virus Nucleoside Analog DNA Polymerase Inhibitor, Herpes Zoster Virus Nucleoside Analog DNA Polymerase Inhibitor Start: 05-04-2025 vitamin b12 1 mg/ml injectab le solution (20 sources) Vitamin B12 Start: 02-02-2025 Start: 01-22-2025 End: 04-13-2025 (20 sources) Start: 05-24-2025 Start: 02-02-2025 Start: 01-22-2025 End: 05-24-2025 Start: 01-22-2025 Start: 12-08-2024 Start: 10-15-2024 Start: 10-12-2024 Start: 10-12-2024 End: 12-08-2024 Start: 10-07-2024 End: 10-15-2024 Start: 10-07-2024 Start: 07-29-2024 End: 09-22-2024 Start: 07-27-2024 End: 09-15-2024 Start: 06-17-2024 Start: 06-17-2024 End: 10-07-2024 Start: 03-11-2024 Start: 03-21-2023 End: 03-11-2024 Start: 01-24-2023 End: 01-20-2025 Start: 01-24-2023 Start: 12-06-2021 End: 12-06-2021 Start: 12-06-2021 Start: 10-01-2021 End: 12-06-2021 Completed/Discontinued Medications Medication Drug Class(es) Dates Sig (Normalized) Sig (Original) acetaminophen 300 mg / HYDROcodone bitartrate 10 mg oral tablet (20 sources) Opioid Agonist Start: 07-18-2020 End: 07-23-2020 Start: 07-18-2020 End: 07-23-2020 Start: 07-18-2020 End: 07-23-2020 take 1 tablet by mouth every six hours as needed for pain Hydrocodone-Acetaminophen (Vicodin Hp) 10-300 mg tablet Discontinued 1 TABLET PO EVERY 6 HOURS 30 July 18, 2020 July 22, 2020 11:02pm 1-2 tabs every 6 hours as needed for pain, stop all other narcotics and tylenol products Start: 07-12-2020 End: 10-06-2020 Start: 07-12-2020 End: 10-06-2020 Start: 07-12-2020 End: 10-06-2020 take 1 tablet by mouth every four hours as needed Hydrocodone-Acetaminophen Discontinued 1 - 2 TABLET PO EVERY 4 HOURS NEEDED 60 July 12, 2020 July 24, 2020 12:47pm Start: 04-15-2018 End: 09-16-2018 Start: 04-15-2018 End: 09-16-2018 Start: 04-15-2018 End: 09-16-2018 take 1 tablet by mouth every six hours as needed Hydrocodone-Acetaminophen Discontinued 1 TABLET PO EVERY 6 HOURS NEEDED 19 04April 14, 2018 11:00pm September 16, 2018 3:18pm Start: 09-30-2017 End: 01-28-2018 Start: 09-30-2017 End: 01-28-2018 Start: 09-30-2017 End: 01-28-2018 take 1 tablet by mouth every six hours as needed Hydrocodone-Acetaminophen Discontinued 1 - 2 TABLET PO EVERY 6 HOURS NEEDED 40 September 29, 2017 11:00pm January 28, 2018 3:26pm amitriptyline hydrochloride 25 mg oral tablet (20 sources) Tricyclic Antidepressant Start: 01-22-2025 End: 02-02-2025 Start: 10-14-2024 End: 01-22-2025 Start: 06-11-2021 End: 01-05-2025 Start: 06-11-2021 End: 10-21-2023 Start: 06-11-2021 End: 12-16-2022 Amitriptyline Discontinued 2 5 MG .ROUTE .COMPLEX December 16, 2022 10:23pm December 16, 2022 10:26pm 25 mg; Comment on above: amitriptyline 25 mg tablet take 1 tablet by mouth at bedtime amoxicillin 875 mg / clavulanate 125 mg oral tablet (14 sources) Penicillin-class Antibacterial Start: 12-22-2023 End: 01-12-2024 Start: 12-22-2023 End: 01-12-2024 Start: 12-22-2023 End: 01-12-2024 take 1 tablet by mouth every twelve hours Amoxicillin-Pot Clavulanate Discontinued 1 TABLET PO Q12H December 22, 2023 12:00am January 12, 2024 8:30am apixaban 2.5 mg oral tablet (20 sources) Factor Xa Inhibitor Start: 07-12-2020 End: 10-06-2020 ascorbic acid 500 mg oral tablet (20 sources) Vitamin C Start: 01-28-2018 End: 10-06-2020 Comment on above: Take 1 tablet by bang th once daily. aspirin 81 mg delayed release oral tablet (20 sources) Platelet Aggregation Inhibitor, Nonsteroidal Anti-inflammatory Drug Start: 03-31-2020 take 1 tablet by mouth once daily aspirin, enteric coated (ECOTRIN LOW STRENGTH) 81 mg EC tablet Take 1 tablet by mouth once daily. 0 03/31/2020 Active Start: 09-16-2018 End: 06-06-2022 Start: 09-23-2017 End: 09-16-2018 Comment on above: Take 1 tablet by bang th once daily. baclofen 10 mg oral tablet (20 sources) gamma-Aminobutyric Acid-ergic Agonist Start: 10-14-2024 End: 02-02-2025 benzonatate 100 mg oral caps ule (20 sources) Non-narcotic Antitussive Start: 03-21-2023 End: 07-26-2024 Start: 09-20-2019 End: 10-27-2019 Start: 09-20-2019 End: 10-27-2019 take 200 mg by mouth three times daily Benzonatate Discontinued 200 MG PO THREE TIMES A DAY September 19, 2019 11:00pm October 27, 2019 3:07pm onabotulinumtoxina 100 unt injection (20 sources) Acetylcholine Release Inhibitor Start: 08-30-2022 End: 11-05-2022 Start: 08-30-2022 End: 11-05-2022 Start: 08-30-2022 End: 11-05-2022 inject 100 [IU] by intramuscular injection once Onabotulinumtoxina (Botox) 100 unit recon soln Discontinued 200 UNIT IM ONCE August 29, 2022 11:00pm November 05, 2022 1:53pm in split doses during endoscopy ..22 Budesonide-Formoterol (20 sources) Corticosteroid, beta2-Adrenergic Agonist Start: 2023 End: 10-13-2024 Start: 06-11-2024 End: 10-12-2024 Start: 01-21-2024 End: 06-11-2024 Start: 01-21-2024 Start: 10-30-2023 End: 01-21-2024 Start: 10-30-2023 take 1 puff(s) by in halation twice daily Budesonide-Formoterol (Symbicort) 160-4.5 mcg/actuation HFA aerosol inhaler Active 2 PUFF INHALATION TWICE A DAY 10.2 October 30, 2023 4:41pm Start: 09-30-2023 End: 10-30-2023 Start: 09-30-2023 End: 10-30-2023 take 1 puff(s) by inhalation twice daily Budesonide-Formoterol (Symbicort) 160-4.5 mcg/actuation HFA aerosol inhaler Discontinued 2 PUFF INHALATION TWICE A DAY 10.2 September 30, 2023 10:53am October 30, 2023 4:41pm Start: 09-30-2023 take 1 puff(s) by in halation twice daily Budesonide-Formoterol (Symbicort) 160-4.5 mcg/actuation HFA aerosol inhaler Active 2 PUFF INHALATION TWICE A DAY 10.2 September 30, 2023 10:53am Start: 08-21-2023 End: 09-30-2023 Start: 08-21-2023 End: 09-30-2023 take 1 puff(s) by inhalation twice daily Budesonide-Formoterol (Symbicort) 160-4.5 mcg/actuation HFA aerosol inhaler Discontinued 2 PUFF INHALATION TWICE A DAY 10.2 August 20, 2023 11:00pm September 30, 2023 10:54am Start: 08-21-2023 take 1 puff(s) by in halation twice daily Budesonide-Formoterol (Symbicort) 160-4.5 mcg/actuation HFA aerosol inhaler Active 2 PUFF INHALATION TWICE A DAY 10.2 August 21, 2023 12:00am busPIRone hydrochloride 5 mg oral tablet (20 sources) Start: 11-21-2015 End: 02-09-2018 ciprofloxacin 500 mg oral ta blet (20 sources) Quinolone Antimicrobial Start: 01-22-2025 End: 02-01-2025 Start: 01-12-2024 End: 01-21-2024 Start: 12-13-2020 End: 01-24-2021 Start: 12-13-2020 End: 01-24-2021 take 500 mg by mouth twice daily Ciprofloxacin Hcl Discontinued 500 MG PO TWICE A DAY December 13, 2020 12:00am January 24, 2021 1:01pm Start: 07-06-2020 End: 07-06-2020 Start: 07-06-2020 End: 07-06-2020 take 500 mg by mouth twice daily Ciprofloxacin Hcl Discontinued 500 MG PO TWICE A DAY July 05, 2020 11:00pm July 06, 2020 5:53pm citalopram 40 mg oral tablet (20 sources) Serotonin Reuptake Inhibitor Start: 03-19-2017 End: 02-09-2018 clindamycin 300 mg oral caps ule (20 sources) Lincosamide Antibacterial Start: 06-22-2021 End: 08-28-2021 Start: 06-22-2021 End: 08-28-2021 Start: 06-22-2021 End: 08-28-2021 take 600 mg by mouth once Clindamycin Hcl Discontinued 600 MG PO ONCE 2 1 June 21, 2021 11:00pm August 28, 2021 9:53am To be taken 1 hour prior to dental procedure. Start: 11-20-2015 End: 11-25-2015 codeine phosphate 2 mg/ml / guaiFENesin 40 mg/ml oral solution (20 sources) Opioid Agonist Start: 07-29-2024 End: 09-13-2024 Start: 07-29-2024 End: 09-13-2024 Start: 11-23-2019 End: 11-27-2019 Start: 11-23-2019 End: 11-27-2019 Start: 11-23-2019 End: 11-27-2019 take 1 mL by mouth every six hours Codeine-Guaifenesin Discontinued 5 ML PO EVERY 6 HOURS 120 November 23, 2019 12:00am November 27, 2019 12:07am DO NOT TAKE AMBIEN WHILE ON THIS MED colestipol hydrochloride 1000 mg oral tablet (20 sources) Bile Acid Sequestrant Start: 04-08-2022 End: 11-16-2024 1 ml denosumab 60 mg/ml prefilled syringe (20 sources) RANK Ligand Inhibitor Start: 02-26-2022 End: 02-26-2022 inject 60 mg by subcutaneous injection once Prolia (denosumab) 60 mg/mL subcutaneous syringe Discontinued 60 MG SC ONCE February 26, 2022 10:50am February 26, 2022 11:51am Start: 01-29-2022 End: 10-04-2024 Start: 01-29-2022 End: 04-01-2024 Start: 01-29-2022 End: 01-29-2022 Denosumab (Prolia) 60 mg/mL syringe Active 60 MG SC every 6 months January 29, 2022 12:32pm docusate sodium 100 mg oral capsule (20 sources) Start: 09-30-2017 End: 01-28-2018 Flucelvax Quad (PF) (flu vac qs 2018(4 yr up)CD(PF)) 60 mcg (15 mcg x (7 sources) Start: 09-16-2018 End: 09-16-2018 inject 15 ug by intramuscular injection once Flucelvax Quad (PF) (flu vac qs 2018(4 yr up)CD(PF)) 60 mcg (15 mcg x Discontinued 0.5 ML IM ONCE September 16, 2018 3:46pm September 16, 2018 4:55pm fluconazole 150 mg oral tablet (20 sources) Azole Antifungal Start: 02-01-2025 End: 03-30-2025 Start: 12-22-2023 End: 01-12-2024 fluorometholone 1 mg/ml ophthalmic suspension (3 sources) Corticosteroid Start: 01-27-2018 fluorometholon e (FML LIQUID FILM) 0.1 % ophthalmic suspension instill one drop in both eyes daily 3 01/27/2018 Active Comment on above: instill one drop in both eyes daily fluticasone propionate 0.05 mg/actuat metered dose nasal spray (20 sources) Corticosteroid Start: 01-21-2024 End: 11-05-2024 folic acid 1 mg oral tablet (10 sources) Start: 01-22-2025 End: 03-31-2025 gabapentin 300 mg oral capsule (20 sources) Anti-epileptic Agent Start: 02-10-2023 End: 06-17-2024 Start: 02-10-2023 End: 04-14-2023 take 300 mg by mouth twice daily Gabapentin Discontinu ed 300 MG PO TWICE A DAY 60 February 09, 2023 11:00pm April 14, 2023 2:41pm Start: 03-31-2020 take 2 capsules by m outh twice daily gabapentin (NEURONTIN) 300 mg capsule Take 2 capsules by mouth twice daily. 0 03/31/2020 Active Start: 01-28-2018 End: 10-06-2020 Start: 01-28-2018 End: 01-28-2018 Start: 01-28-2018 End: 10-06-2020 take 1 capsule by mouth three times daily Gabapentin Discontinued 300 MG PO THREE TIMES A DAY 90 October 05, 2020 11:20am October 06, 2020 1:59pm take 1 capsule by mouth three times a day Comment on above: Take 2 capsules by m outh twice daily. homatropine methylbromide 0. 3 mg/ml / HYDROcodone bitartrate 1 mg/ml oral solution (20 sources) Opioid Agonist, Cholinergic Muscarinic Agonist Start: 11-22-2019 End: 11-23-2019 Start: 11-22-2019 End: 11-23-2019 Start: 11-22-2019 End: 11-23-2019 take 1 mL by mouth every six hours as needed Hydrocodone-Homatropine Discontinued 5 ML PO EVERY 6 HOURS NEEDED 90 4 Praneeth 23rd, 2019 Praneeth 24th, 2019 9:58am hydroCHLOROthiazide 25 mg oral tablet (20 sources) Thiazide Diuretic Start: 11-21-2015 End: 03-25-2024 Comment on above: Take 1 tablet by bang once daily. HYDROmorphone hydrochloride 2 mg oral tablet (20 sources) Opioid Agonist Start: 04-15-2017 End: 04-15-2017 Lactobacillus Combination No.4 (Probiotic) 3 billion cell capsule (20 sources) Start: 12-06-2021 End: 12-06-2021 take 3 capsules by mouth once daily Lactobacillus Combination No.4 (Probiotic) 3 billion cell capsule Discontinued 3000 MMU CELLS PO DAILY December 06, 2021 10:09am December 06, 2021 4:26pm administer with a meal Start: 12-06-2021 End: 12-06-2021 take 3 capsules by mouth once daily Lactobacillus Combination No.4 (Probiotic) 3 billion cell capsule Discontinued 3000 MMU CELLS PO DAILY December 06, 2021 11:09am December 06, 2021 5:26pm administer with a meal Start: 10-01-2021 End: 12-06-2021 take 3 capsules by mouth once daily Lactobacillus Combination No.4 (Probiotic) 3 billion cell capsule Discontinued 3000 MMU CELLS PO DAILY October 01, 2021 1:12pm December 06, 2021 11:10am administer with a meal Start: 10-01-2021 End: 12-06-2021 take 3 capsules by mouth once daily Lactobacillus Combination No.4 (Probiotic) 3 billion cell capsule Discontinued 3000 MMU CELLS PO DAILY September 30, 2021 11:00pm December 06, 2021 10:10am administer with a meal Start: 10-01-2021 End: 12-06-2021 take 3 capsules by mouth once daily Lactobacillus Combination No.4 (Probiotic) 3 billion cell capsule Discontinued 3000 MMU CELLS PO DAILY October 01, 2021 12:00am December 06, 2021 11:10am administer with a meal lifitegrast 50 mg/ml ophthalmic solution (3 sources) Lymphocyte Function-Associated Antigen-1 Antagonist Start: 01-31-2022 take 1 drop(s) into the eye(s) twice daily XIIDRA 5 % ophthalmic drops Use 1 Drop in both eyes twice daily. 0 01/31/2022 Active Comment on above: Use 1 Drop in both e yes twice daily. meloxicam 15 mg oral tablet (20 sources) Nonsteroidal Anti-inflammatory Drug Start: 06-11-2021 take 1 tablet by mouth once daily meloxicam (MOBIC) 15 mg tablet Take 1 tablet by mouth once daily. 30 tablet 2 11/28/2021 Active Start: 02-09-2020 End: 07-12-2020 Start: 01-28-2018 End: 09-20-2019 Comment on above: Take 1 tablet by bang th once daily. Methylprednisolone (20 sources) Corticosteroid Start: 06-22-2021 End: 08-28-2021 Start: 06-22-2021 End: 08-28-2021 take 1 tablet by mouth once Methylprednisolone (Medrol (Compa)) 4 mg tablets,dose pack Discontinued 0 PO per package directions June 21, 2021 11:00pm August 28, 2021 9:49am PO PER PKG DIR Start: 12-11-2020 End: 05-09-2021 Start: 12-11-2020 End: 05-09-2021 take 1 tablet by mouth once Methylprednisolone (Medrol (Compa)) 4 mg tablets,dose pack Discontinued 0 PO per package directions December 11, 2020 12:00am May 09, 2021 8:07am PO PER PKG DIR metoprolol tartrate 50 mg oral tablet (20 sources) beta-Adrenergic Zoya Start: 07-02-2022 End: 07-14-2023 take 1 tablet by mouth twice daily Metoprolol Tartrate Discontinued 0 .ROUTE .COMPLEX 120 October 23, 2022 11:45am July 14, 2023 7:28am take 1 tablet by mouth twice a day Start: 05-09-2021 End: 02-02-2025 Start: 05-09-2021 End: 09-13-2021 take 1 tablet by mouth twice daily Metoprolol Tartrate Discontinued 0 .ROUTE .COMPLEX 120 May 09, 2021 8:22am September 13, 2021 1:49pm take 1 tablet by mouth twice a day Start: 11-21-2015 End: 05-09-2021 Comment on above: TAKE ONE TABLET BY M OUTH TWICE DAILY nabumetone 500 mg oral table t (15 sources) Nonsteroidal Anti-inflammatory Drug Start: 03-11-2024 End: 03-30-2025 Start: 03-11-2024 Start: 08-15-2020 take 1 tablet by bang th twice daily nabumetone (RELAFEN) 750 mg tablet Indications: Primary osteoarthritis involving multiple joints Take 1 tablet by mouth twice daily. 60 tablet 2 08/15/2020 Active Comment on above: Take 1 tablet by bang th twice daily. naproxen 250 mg oral tablet (20 sources) Nonsteroidal Anti-inflammatory Drug Start: 08-13-2021 End: 10-01-2021 NIFEdipine 10 mg oral capsul e (20 sources) Dihydropyridine Calcium Channel Zoay Start: 07-26-2024 End: 04-28-2025 nitrofurantoin, macrocrystal s 100 mg oral capsule (20 sources) Nitrofuran Antibacterial Start: 08-13-2021 End: 08-15-2021 nitrofurantoin, macrocrystal s 25 mg / nitrofurantoin, monohydrate 75 mg oral capsule (20 sources) Nitrofuran Antibacterial Start: 03-07-2025 End: 03-14-2025 Start: 10-16-2018 End: 10-23-2018 Start: 10-16-2018 End: 10-23-2018 Start: 10-16-2018 End: 10-23-2018 take 1 capsule by mouth every twelve hours at mealtime Nitrofurantoin Monohyd/M-Cryst Discontinued 1 CAP PO Q12H 14 7 October 16, 2018 12:00am October 23, 2018 12:12am administer with a meal/food; swallow whole; do not open, crush, dissolve , or chew omeprazole 40 mg delayed rel ease oral capsule (20 sources) Proton Pump Inhibitor Start: 05-12-2020 End: 05-09-2021 Start: 09-23-2017 End: 02-09-2018 ondansetron 4 mg oral tablet (10 sources) Serotonin-3 Receptor Antagonist Start: 08-18-2024 End: 09-17-2024 24 hr oxybutynin chloride 15 mg extended release oral tablet (15 sources) Cholinergic Muscarinic Antagonist Start: 03-09-2022 take 1 tablet by mouth every twenty-four hours oxybutynin ER (DITROPAN XL) 15 mg 24 hr Extended Rel Tab Take 15 mg by mouth. 0 03/09/2022 Active Start: 06-11-2021 take 15 mg by mouth once daily Oxybutynin Chloride Active 15 MG PO DAILY 2021 11:00pm Comment on above: Take 15 mg by mouth. pantoprazole 40 mg delayed r elease oral tablet (20 sources) Proton Pump Inhibitor Start: 05-09-2021 End: 08-26-2022 Comment on above: Take 40 mg by mouth twice daily. phenazopyridine hydrochlorid e 100 mg oral tablet (20 sources) Start: 10-16-2018 End: 10-17-2018 pravastatin sodium 20 mg ora l tablet (20 sources) HMG-CoA Reductase Inhibitor Start: 11-21-2015 End: 01-28-2018 Start: 11-21-2015 End: 01-28-2018 Start: 11-21-2015 End: 01-28-2018 take 20 mg by mouth at bedtime Pravastatin Discontinue d 20 MG PO AT BEDTIME November 21, 2015 12:00am January 28, 2018 3:27pm pregabalin 225 mg oral capsu le (20 sources) Start: 10-01-2021 End: 04-08-2022 Start: 10-01-2021 End: 04-08-2022 Start: 10-01-2021 End: 04-08-2022 Pregabalin Discontinued 225 MG PO September 30, 2021 11:00pm April 08, 2022 1:23pm Start: 05-09-2021 End: 06-11-2021 promethazine hydrochloride 2 5 mg oral tablet (20 sources) Phenothiazine Start: 09-30-2017 End: 01-28-2018 ramelteon 8 mg oral tablet (20 sources) Melatonin Receptor Agonist Start: 02-17-2019 End: 05-10-2019 Start: 02-17-2019 End: 05-10-2019 Start: 02-17-2019 End: 05-10-2019 take 1 tablet by mouth at bedtime Ramelteon (Rozerem) 8 mg tablet Discontinued 8 MG PO AT BEDTIME March 23, 2019 10:49am May 10, 2019 8:05am simvastatin 40 mg oral table t (20 sources) HMG-CoA Reductase Inhibitor Start: 01-28-2018 End: 03-16-2024 Comment on above: Take 1 tablet by bang th daily at bedtime. sucralfate 1000 mg oral tabl et (20 sources) Aluminum Complex Start: 02-10-2023 End: 03-16-2024 Start: 02-10-2023 End: 03-16-2024 Start: 02-10-2023 End: 02-13-2023 take 1 g by mouth at bedtime Sucralfate Discontinued 1 GM PO before meals and at bedtime 120 February 12, 2023 6:59am February 13, 2023 9:29am Start: 02-26-2022 End: 01-15-2023 Start: 02-26-2022 End: 01-15-2023 Start: 02-26-2022 End: 01-15-2023 take 1 tablet by mouth at bedtime Sucralfate (Carafate) 1 gram tablet Discontinued 1 GM PO before meals and at bedtime 56 14 April 04, 2022 9:24am January 15, 2023 2:42pm Start: 01-29-2022 End: 02-12-2022 Start: 01-29-2022 End: 02-12-2022 Start: 01-29-2022 End: 02-12-2022 take 1 tablet by mouth at bedtime Sucralfate (Carafate) 1 gram tablet Discontinued 1 GM PO before meals and at bedtime 56 14 January 29, 2022 12:00am February 12, 2022 1:24am Comment on above: take 1 tablet by bang th before meals and at bedtime for 2 weeks tiZANidine 2 mg oral capsule (20 sources) Central alpha-2 Adrenergic Agonist Start: 07-19-2020 End: 10-12-2024 Comment on above: Take by mouth. triamcinolone acetonide 32 mg injection (20 sources) Corticosteroid Start: 03-27-2020 End: 03-27-2020 Zilretta (triamcinolone acetonide) 32 mg intra-articular suspension,extended Discontinued 32 MG INTRAARTIC ONCE 1 March 27, 2020 11:12am March 27, 2020 11:25am Start: 04-01-2018 End: 04-01-2018 Kenalog (triamcinolone aceto nide) 10 mg/mL suspension for injection Discontinued 1 MG INTRAARTIC ONCE 0.1 April 01, 2018 1:07pm April 01, 2018 3:03pm Start: 02-09-2018 End: 02-09-2018 inject 2 mg by intramuscular injection once Kenalog (triamcinolone acetonide) 10 mg/mL suspension for injection Discontinued 2 MG IM ONCE 0.2 February 09, 2018 2:23pm February 09, 2018 2:46pm 24 hr venlafaxine 150 mg extended release oral capsule (20 sources) Serotonin and Norepinephrine Reuptake Inhibitor Start: 03-31-2020 take 2 capsules by mouth once daily venlafaxine ER (EFFEXOR XR) 75 mg 24 hr capsule Indications: Recurrent major depression in partial remission (HCC) Take 2 capsules by mouth once daily. 30 capsule 3 03/31/2020 Active Start: 06-02-2019 End: 04-13-2025 Start: 02-09-2018 End: 06-02-2019 Comment on above: Take 2 capsules by m out once daily. Vibegron (20 sources) Start: 10-16-2022 End: 01-03-2023 Start: 10-16-2022 End: 01-03-2023 take 1 tablet by mouth once daily Vibegron (Gemtesa) 75 mg tablet Discontinued 75 MG PO DAILY October 16, 2022 1:00am January 03, 2023 12:01pm Start: 10-16-2022 End: 01-03-2023 take 1 tablet by mouth once daily Vibegron (Gemtesa) 75 mg tablet Discontinued 75 MG PO DAILY October 16, 2022 12:00am January 03, 2023 11:01am Start: 10-16-2022 take 1 tablet by bang th once daily Vibegron (Gemtesa) 75 mg tablet Active 75 MG PO DAILY October 16, 2022 12:00am zolpidem tartrate 10 mg oral tablet (20 sources) gamma-Aminobutyric Acid-ergic Agonist Start: 11-21-2015 End: 01-22-2025 Comment on above: TAKE 1 TABLET BY BANG TH AT BEDTIME NEEDED FOR SLEEP. TO LAST 90 DAYS. Problems Active Problems Problem Classification Problem Date Documented Da te Episodic/Chronic Abdominal pain (20 sources) Epigastric pain; Translations: [Epigastric pain] Episodic Acute bronchitis (20 sources) Acute bronchitis; Translations: [Acute bronchitis, unspecified] 09-20-2019 Episodic Administrative/social admission (20 sources) Education with explicit context; Translations: [Other specified counseling] 06-26-2021 Episodic Anxiety disorders (20 sources) Mixed anxiety and depressive disorder; Translations: [Other specified anxiety disorders] Onset: 5 Chronic Asthma (1 source) Severe persistent asthma, uncomplicated; Translations: [Severe persistent asthma, uncomplicated] Onset: 5 Chronic Asthma (2 sources) Asthma; Translations: [Eosinophilic asthma] Onset: 5 Bacterial infection; unspecified site (20 sources) History of methicillin resistant Staphylococcus aureus infection; Translations: [Personal history of Methicillin resistant Staphylococcus aureus infection] Onset: 5 11-26-2015 Episodic Chronic obstructive pulmonary disease and bronchiectasis (19 sources) Bronchitis; Translations: [Bronchitis, not specified as acute or chronic] 03-21-2023 Episodic Chronic obstructive pulmonary disease and bronchiectasis (1 source) Chronic obstructive pulmonary disease and bronchiectasis; Translations: [Other specified chronic obstructive pulmonary disease] Onset: 5 Chronic ulcer of skin (20 sources) Skin ulcer; Translations: [Non-pressure chronic ulcer of skin of other sites with unspecified severity] 01-27-2019 Chronic Conditions associated with dizziness or vertigo (20 sources) Dizziness; Translations: [Dizziness and giddiness] Onset: 5 01-28-2018 Episodic Congestive heart failure; nonhypertensive (1 source) Heart failure, unspecified; Translations: [Heart failure, unspecified] Onset: 5 Chronic Diabetes mellitus with complications (1 source) Type 2 diabetes mellitus with hyperglycemia; Translations: [Type 2 diabetes mellitus with hyperglycemia] Onset: 4 Chronic Diabetes mellitus without complication (20 sources) Type 2 diabetes mellitus; Translations: [Type 2 diabetes mellitus without complications] Onset: 5 10-04-2024 Chronic Disorders of lipid metabolism (20 sources) Hyperlipidemia; Translations: [Hyperlipidemia, unspecified] Onset: 2 08-11-2012 Chronic Esophageal disorders (20 sources) Gastroesophageal reflux disease; Translations: [Gastro-esophageal reflux disease without esophagitis] Onset: 4 Chronic Essential hypertension (20 sources) Hypertensive disorder; Translations: [Essential (primary) hypertension] Onset: 1 11-15-2011 Chronic Fluid and electrolyte disorders (20 sources) Hypokalemia; Translations: [Hypokalemia] 11-22-2019 Episodic Gastroduodenal ulcer (except hemorrhage) (20 sources) Gastric ulcer; Translations: [Gastric ulcer, unspecified as acute or chronic, without hemorrhage or perforation] Chronic Genitourinary symptoms and ill-defined conditions (20 sources) Dysuria; Translations: [Dysuria] 10-16-2018 Episodic Headache; including migraine (20 sources) Tension-type headache; Translations: [Tension-type headache, unspecified, not intractable] Onset: 4 12-16-2022 Chronic Headache; including migraine (10 sources) Headache; Translations: [Headache] 06-17-2024 Episodic Heart valve disorders (20 sources) Mitral valve prolapse; Translations: [Nonrheumatic mitral (valve) prolapse] 01-28-2018 Chronic Hepatitis (19 sources) Nonalcoholic steatohepatitis; Translations: [Nonalcoholic steatohepatitis (GERONIMO)] Onset: 4 11-11-2023 Chronic Influenza (20 sources) Influenza due to Influenza A virus; Translations: [Influenza due to other identified influenza virus with other respiratory manifestations] 01-11-2019 Episodic Malaise and fatigue (20 sources) Fatigue; Translations: [Other fatigue] Onset: 5 12-16-2022 Episodic Mood disorders (3 sources) Recurrent major depression in partial remission; Translations: [Major depressive disorder, recurrent, in partial remission] 12-04-2015 Chronic Mood disorders (1 source) Mood disorders; Translations: [Depression, unspecified] Onset: Noninfectious gastroenteritis (20 sources) Chronic diarrhea; Translations: [Noninfective gastroenteritis and colitis, unspecified] Episodic Nonmalignant breast conditions (3 sources) Fibrocystic changes of bilateral breasts; Translations: [Diffuse cystic mastopathy of right breast] Onset: 9 02-05-2019 Chronic Nonmalignant breast conditions (20 sources) Breast lump; Translations: [Unspecified lump in the right breast, unspecified quadrant] Onset: 9 02-18-2019 Episodic Nonspecific chest pain (20 sources) Chest pain; Translations: [Chest pain, unspecified] Onset: 5 01-28-2018 Episodic Nutritional deficiencies (20 sources) Vitamin D deficiency; Translations: [Vitamin D deficiency, unspecified] Onset: 9 10-24-2009 Chronic Nutritional deficiencies (20 sources) Cobalamin deficiency; Translations: [Deficiency of other specified B group vitamins] Onset: 5 02-02-2025 Episodic Osteoarthritis (20 sources) Arthritis; Translations: [Unspecified osteoarthritis, unspecified site] Chronic Osteoporosis (20 sources) Osteoporosis; Translations: [Age-related osteoporosis without current pathological fracture] Onset: Chronic Other bone disease and musculoskeletal deformities (20 sources) Segmental and somatic dysfunction; Translations: [Segmental and somatic dysfunction of cervical region] 06-07-2021 Episodic Other bone disease and musculoskeletal deformities (20 sources) Osteopenia with high fracture risk; Translations: [Other specified disorders of bone density and structure, unspecified site] 01-29-2022 Episodic Other bone disease and musculoskeletal deformities (13 sources) Other specified disorders of bone density and structure, unspecified site; Translations: [Disorder of bone and cartilage, unspecified] Episodic Other circulatory disease (20 sources) Foot pulse absent; Translations: [Other specified symptoms and signs involving the circulatory and respiratory systems] 12-17-2022 Episodic Other circulatory disease (20 sources) Low blood pressure; Translations: [Hypotension, unspecified] 02-02-2025 Episodic Other congenital anomalies (3 sources) Accessory navicular bone of foot; Translations: [Other congenital malformations of lower limb(s), including pelvic girdle] Onset: 6 01-09-2016 Chronic Other connective tissue disease (20 sources) History of total knee arthroplasty; Translations: [Presence of right artificial knee joint] 06-12-2022 Chronic Other connective tissue disease (20 sources) Tendinitis; Translations: [Other specified enthesopathies of unspecified lower limb, excluding foot] 10-01-2021 Episodic Other connective tissue disease (20 sources) Fibromyalgia; Translations: [Fibromyalgia] Onset: 9 07-19-2009 Episodic Other connective tissue disease (20 sources) H/O: gout; Translations: [Personal history of other diseases of the musculoskeletal system and connective tissue] 11-22-2019 Episodic Other connective tissue disease (11 sources) Fibromyalgia; Translations: [Myalgia and myositis, unspecified] Episodic Other connective tissue disease (1 source) Chronic pain of left foot; Translations: [Pain in left foot] Episodic Other connective tissue disease (20 sources) Myalgia caused by statin; Translations: [Myalgia, unspecified site] 06-12-2022 Episodic Other connective tissue disease (3 sources) Myalgia, unspecified site; Translations: [Myalgia and myositis, unspecified] Episodic Other connective tissue disease (20 sources) Recurrent falls ; Translations: [Repeated falls] 01-20-2025 Episodic Other connective tissue disease (2 sources) Repeated falls; Translations: [Repeated falls] Onset: 5 Episodic Other ear and sense organ disorders (20 sources) Otalgia, left ear; Translations: [Left ear pain] 12-21-2018 Episodic Other endocrine disorders (20 sources) Increased gastrin secretion; Translations: [Increased secretion of gastrin] 04-23-2022 Chronic Other endocrine disorders (20 sources) Gastrointestinal hormone level - finding; Translations: [Increased secretion of gastrin] 05-20-2022 Chronic Other endocrine disorders (10 sources) Increased secretion of gastrin; Translations: [Abnormality of secretion of gastrin] Chronic Other eye disorders (3 sources) Degenerative disorder of eye; Translations: [Degenerative myopia, unspecified eye] Onset: 03-12-2011 Chronic Other gastrointestinal disorders (20 sources) Dysphagia; Translations: [Dysphagia, unspecified] 02-26-2022 Episodic Other gastrointestinal disorders (20 sources) Dysphagia, unspecified; Translations: [Dysphagia, unspecified] Episodic Other gastrointestinal disorders (1 source) Other dysphagia; Translations: [Other dysphagia] Onset: 5 Episodic Other hereditary and degenerative nervous system conditions (16 sources) Impaired cognition; Translations: [Mild cognitive impairment, so stated] 03-31-2025 Chronic Other liver diseases (20 sources) Steatosis of liver; Translations: [Fatty (change of) liver, not elsewhere classified] 04-08-2022 Chronic Other liver diseases (20 sources) Fatty (change of) liver, not elsewhere classified; Translations: [Other chronic nonalcoholic liver disease] Onset: 5 Chronic Other liver diseases (1 source) Unspecified cirrhosis of liver; Translations: [Unspecified cirrhosis of liver] Onset: 5 Chronic Other liver diseases (19 sources) Elevated liver enzymes level; Translations: [Abnormal levels of other serum enzymes] 01-15-2023 Episodic Other liver diseases (3 sources) Abnormal levels of other serum enzymes; Translations: [Other nonspecific abnormal serum enzyme levels] Onset: 5 01-15-2023 Episodic Other lower respiratory disease (20 sources) Dyspnea; Translations: [Dyspnea, unspecified] 01-28-2018 Episodic Other lower respiratory disease (20 sources) Tussive syncope; Translations: [Post-tussive syncope] 11-23-2019 Episodic Other lower respiratory disease (20 sources) Solitary nodule of lung; Translations: [Solitary pulmonary nodule] 08-28-2021 Episodic Other lower respiratory disease (20 sources) Chronic cough; Translations: [Chronic cough] Onset: 5 08-06-2023 Episodic Other lower respiratory disease (20 sources) Asthma; Translations: [Eosinophilic asthma] 03-11-2024 Episodic Other lower respiratory disease (6 sources) Dyspnea on exertion; Translations: [Other forms of dyspnea] 04-28-2025 Episodic Other lower respiratory disease (2 sources) Dyspnea, unspecified; Translations: [Dyspnea, unspecified] Onset: 5 Episodic Other lower respiratory disease (1 source) Other forms of dyspnea; Translations: [Other forms of dyspnea] Onset: 5 Episodic Other nervous system disorders (1 source) Complex regional pain syndrome type I of left lower limb; Translations: [Complex regional pain syndrome I of left lower limb] Chronic Other nervous system disorders (20 sources) Disorder of brain; Translations: [Encephalopathy, unspecified] 01-20-2025 Chronic Other nervous system disorders (1 source) Encephalopathy, unspecified; Translations: [Encephalopathy, unspecified] Onset: 5 Chronic Other non-epithelial cancer of skin (20 sources) History of malignant neoplasm of skin; Translations: [Personal history of other malignant neoplasm of skin] 11-22-2019 Episodic Other non-traumatic joint disorders (20 sources) Pain in right knee; Translations: [Right knee pain] 06-12-2022 Episodic Other non-traumatic joint disorders (3 sources) Pain in unspecified knee; Translations: [Pain in joint, lower leg] Episodic Other nutritional; endocrine; and metabolic disorders (20 sources) Body mass index 30+ - obesity; Translations: [Obesity, unspecified] 01-28-2018 Chronic Other nutritional; endocrine; and metabolic disorders (19 sources) Hyperbilirubinemia; Translations: [Other disorders of bilirubin metabolism] 01-15-2023 Chronic Other nutritional; endocrine; and metabolic disorders (2 sources) Other disorders of bilirubin metabolism; Translations: [Jaundice, unspecified, not of ] 01-15-2023 Chronic Other nutritional; endocrine; and metabolic disorders (6 sources) Body mass index 40+ - severely obese; Translations: [Morbid (severe) obesity due to excess calories] 04-28-2025 Chronic Other upper respiratory disease (20 sources) Allergic rhinitis; Translations: [Allergic rhinitis, unspecified] 01-21-2024 Chronic Other upper respiratory disease (3 sources) Allergic rhinitis, unspecified; Translations: [Allergic rhinitis, cause unspecified] Onset: 01-21-2024 Chronic Peripheral and visceral atherosclerosis (6 sources) Arteriosclerotic vascular disease; Translations: [Unspecified atherosclerosis] 04-28-2025 Chronic Residual codes; unclassified (20 sources) Hypersomnia; Translations: [Hypersomnia, unspecified] 02-26-2022 Chronic Residual codes; unclassified (8 sources) Hypersomnia, unspecified; Translations: [Hypersomnia, unspecified] Chronic Residual codes; unclassified (20 sources) Obstructive sleep apnea syndrome; Translations: [Obstructive sleep apnea (adult) (pediatric)] 02-01-2025 Chronic Residual codes; unclassified (10 sources) Sleep apnea; Translations: [Sleep apnea, unspecified] 02-01-2025 Chronic Residual codes; unclassified (2 sources) Obstructive sleep apnea (adult) (pediatric); Translations: [Obstructive sleep apnea (adult) (pediatric)] Onset: 5 Chronic Residual codes; unclassified (1 source) Sleep apnea, unspecified; Translations: [Sleep apnea, unspecified] Onset: 5 Chronic Residual codes; unclassified (20 sources) Postmenopausal state; Translations: [Asymptomatic menopausal state] 08-28-2021 Episodic Residual codes; unclassified (20 sources) Insomnia; Translations: [Insomnia, unspecified] 09-19-2022 Episodic Residual codes; unclassified (20 sources) Confusional state; Translations: [Disorientation, unspecified] 02-02-2025 Episodic Rheumatoid arthritis and related disease (3 sources) Rheumatoid arthritis; Translations: [Rheumatoid arthritis, unspecified] Onset: 1 06-28-2016 Chronic Skin and subcutaneous tissue infections (20 sources) Cellulitis; Translations: [Cellulitis, unspecified] Onset: 6 05-08-2016 Episodic Spondylosis; intervertebral disc disorders; other back problems (20 sources) Bilateral arthritis of sacroiliac joint; Translations: [Sacroiliitis, not elsewhere classified] 08-28-2021 Chronic Syncope (20 sources) Syncope; Translations: [Syncope and collapse] Onset: 5 11-22-2019 Episodic Unclassified (1 source) Unknown / UNK(Unknown) Onset: 7 Unclassified (1 source) Other chest pain; Translations: [Other chest pain] Onset: 5 Unclassified (1 source) Other toxic encephalopathy; 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] Onset: 5 Viral infection (10 sources) Disease caused by 2019-nCoV; Translations: [COVID-19] 07-29-2024 Episodic Past or Other Problems Problem Classification Problem Date Documented Da te Episodic/Chronic Acquired foot deformities (3 sources) Talipes planus; Translations: [Flat foot [pes planus] (acquired), left foot] Onset: 01-09-2016 01-09-2016 Episodic Diabetes mellitus without complication (18 sources) Prediabetes; Translations: [Prediabetes] Onset: 09-04-2017 09-04-2017 Episodic Immunizations and screening for infectious disease (1 source) Encounter for immunization; Translations: [Encounter for immunization] Onset: 10-04-2024 Episodic Melanomas of skin (3 sources) H/O Malignant melanoma; Translations: [Personal history of malignant melanoma of skin] Onset: 02-05-2019 02-05-2019 Episodic Other circulatory disease (1 source) Hemorrhage, not elsewhere classified; Translations: [Hemorrhage, not elsewhere classified] Onset: 07-26-2024 Episodic Other connective tissue disease (3 sources) Tibialis posterior tendinitis ; Translations: [Posterior tibial tendinitis, unspecified leg] Onset: 01-09-2016 01-09-2016 Episodic Other eye disorders (1 source) Dry eye syndrome of bilateral lacrimal glands; Translations: [Dry eye syndrome of bilateral lacrimal glands] Onset: 11-19-2024 Episodic Other gastrointestinal disorders (3 sources) Diarrhea; Translations: [Diarrhea, unspecified] Onset: 12-13-2011 12-13-2011 Episodic Other screening for suspected conditions (not mental disorders or infectious disease) (20 sources) Patient encounter status; Translations: [Encounter for other screening for malignant neoplasm of breast] Onset: 08-06-2024 Episodic Other upper respiratory infections (20 sources) Upper respiratory infection; Translations: [Acute upper respiratory infection, unspecified] Onset: 08-05-2024 11-23-2019 Episodic Residual codes; unclassified (3 sources) Family history of diabetes mellitus; Translations: [Family history of diabetes mellitus] Onset: 08-08-2011 08-08-2011 Episodic Residual codes; unclassified (3 sources) Postoperative state; Translations: [Other specified postprocedural states] Onset: 03-07-2016 03-07-2016 Episodic Residual codes; unclassified (3 sources) Family history of breast cancer; Translations: [Family history of malignant neoplasm of breast] Onset: 02-05-2019 02-05-2019 Episodic Residual codes; unclassified (20 sources) Insomnia, unspecified; Translations: [Insomnia, unspecified] Onset: 01-05-2025 Episodic Spondylosis; intervertebral disc disorders; other back problems (20 sources) Cervical radiculopathy; Translations: [Radiculopathy, cervical region] Onset: 11-10-2024 Episodic Urinary tract infections (20 sources) Urinary tract infectious disease; Translations: [Urinary tract infection, site not specified] Onset: 01-22-2025 Episodic Results Test Name Value Interpretation Reference Range Facility Pulmonary Visit Reporton Pulmonary Visit Report Normal [facility] Anion gap in Serum or Plasma Ordered By: Latesha Srinivasan on 05-18-2025 Anion gap [Moles/Vol] 12 mmol/L - [facility] BUN/creatinine ratioOrdered By: Latesha Srinivasan on 05-18-2025 Urea nitrogen/Creatinine [Mass ratio] 15.7 mg/mg - [facility] Basic Metabolic Profile (BMP )on 05-18-2025 BUN/CRE 15.7 RATIO Normal 09-19 [facility] Comment on above: Order Comment: PLEAS E SEND BMP RESULTS TO [facility] Performed By: #### L 500.2500 ####[facility] [address] [place], [address] Calcium [Mass/Vol] 9.1 mg/dL Normal 7.6-11.0 [facility] Comment on above: Order Comment: PLEAS E SEND BMP RESULTS TO [facility] Performed By: #### L 500.2500 ####[facility] [address] [place], [address] Chloride [Moles/Vol] 100 mmol/L Normal 98-108 [facility] Comment on above: Order Comment: PLEAS E SEND BMP RESULTS TO [facility] Performed By: #### L 500.2500 ####[facility] [address] [place], [address] CO2 [Moles/Vol] 25.4 mmol/L Normal 21.0-32.0 [facility] Comment on above: Order Comment: PLEAS E SEND BMP RESULTS TO [facility] Performed By: #### L 500.2500 ####[facility] [address] [place], [address] Creatinine [Mass/Vol] 0.80 mg/dL Normal 0.70-1.20 [facility] Comment on above: Order Comment: PLEAS E SEND BMP RESULTS TO [facility] Performed By: #### L 500.2500 ####[facility] [address] [place], [address] GAP 12 Normal 5-15 [facility] Comment on above: Order Comment: PLEAS E SEND BMP RESULTS TO [facility] Performed By: #### L 500.2500 ####[facility] [address] [place], [address] GFR/1.73 sq M.predicted among non-blacks MDRD (S/P/Bld) [Vol rate/Area] 81 mL/min/{1.73_m2} Normal >60 [facility] Comment on above: Order Comment: PLEAS E SEND BMP RESULTS TO [facility] Result Comment: mL/m in/1.73m2 CKD-EPI Creatinine Equation (2020) Performed By: #### L 500.2500 ####[facility] [address] [place], [address] Glucose [Mass/Vol] 137 mg/dL High 70-99 [facility] Comment on above: Order Comment: PLEAS E SEND BMP RESULTS TO [facility] Performed By: #### L 500.2500 ####[facility] [address] [place], [address] Potassium [Moles/Vol] 3.1 mmol/L Low 3.3-5.1 [facility] Comment on above: Order Comment: PLEAS E SEND BMP RESULTS TO [facility] Performed By: #### L 500.2500 ####[facility] [address] [place], [address] Sodium [Moles/Vol] 137 mmol/L Normal 133-145 [facility] Comment on above: Order Comment: PLEAS E SEND BMP RESULTS TO [facility] Performed By: #### L 500.2500 ####[facility] [address] [place], [address] Urea nitrogen [Mass/Vol] 13 mg/dL Normal 4-19 [facility] Comment on above: Order Comment: PLEAS E SEND BMP RESULTS TO [facility] Performed By: #### L 500.2500 ####[facility] [address] [place], [address] Carbon dioxide, total [Moles /volume] in Central venous bloodOrdered By: Latesha Srinivasan on 05-18-2025 CO2 [Moles/Vol] 25.4 mmol/L 21.0-32.0 [facility] Chloride assayOrdered By: Lyle Srinivasan on 05-18-2025 Chloride [Moles/Vol] 100 mmol/L 98-108 [facility] Glomerular filtration rate ( GFR) estimation/1.73 sq m using serum, plasma, or whole bOrdered By: Latesha Srinivasan on 05-18-2025 GFR/1.73 sq M.predicted among non-blacks MDRD (S/P/Bld) [Vol rate/Area] 81 mL/min/{1.73_m2} >60 [facility] Potassium measurement (mass/ volume)Ordered By: Latesha Srinivasan on 05-18-2025 Potassium (Unsp spec) [Mass/Vol] 3.1 mmol/L Low 3.3-5.1 [facility] Serum creatinine measurement (mass/volume)Ordered By: Latesha Srinivasan on 05-18-2025 Creatinine [Mass/Vol] 0.80 mg/dL 0.70-1.20 [facility] Serum glucose measurement (m ass/volume)Ordered By: Latesha Srinivasan on 05-18-2025 Glucose [Mass/Vol] 137 mg/dL High 70-99 [facility] Serum or plasma calcium shimon urement (mass/volume)Ordered By: Latesha Srinivasan on 05-18-2025 Calcium [Mass/Vol] 9.1 mg/dL 7.6-11.0 [facility] Serum or plasma urea nitroge n measurement (mass/volume)Ordered By: Latesha Srinivasan on 05-18-2025 Urea nitrogen [Mass/Vol] 13 mg/dL - [facility] Sodium levelOrdered By: Mike Srinivasan on 05-18-2025 Sodium [Moles/Vol] 137 mmol/L 133-145 [facility] Urgent Care Visit Reporton 0 05-04-2025 Urgent Care Visit Report Normal [facility] Cardiology Visit Reporton Cardiology Visit Report Normal [facility] Office Visit Reporton 2024 Office Visit Report Normal [facility] Anion gap in Serum or Plasma Ordered By: Ryan Leyva on 04-13-2025 Anion gap [Moles/Vol] 12 mmol/L 5- [facility] BUN/creatinine ratioOrdered By: Ryan Leyva on 04-13-2025 Urea nitrogen/Creatinine [Mass ratio] 8.5 mg/mg Low 10-20 [facility] Basic Metabolic Profile (BMP )on 04-13-2025 BUN/CRE 8.5 RATIO Low 10-20 [facility] Comment on above: Performed By: #### L 500.2500, L506.0400, L501.9520 ####[facility] [address] [place], [address] Calcium [Mass/Vol] 10.2 mg/dL Normal 7.6-11.0 [facility] Comment on above: Performed By: #### L 500.2500, L506.0400, L501.9520 ####[facility] [address] [place], [address] Chloride [Moles/Vol] 100 mmol/L Normal 98-108 [facility] Comment on above: Performed By: #### L 500.2500, L506.0400, L501.9520 ####[facility] [address] [place], [address] CO2 [Moles/Vol] 24.1 mmol/L Normal 21.0-32.0 [facility] Comment on above: Performed By: #### L 500.2500, L506.0400, [id number] ####[facility] [address] [place], [address] Creatinine [Mass/Vol] 0.91 mg/dL Normal 0.70-1.20 [facility] Comment on above: Performed By: #### L 500.2500, L506.0400, [id number] ####[facility] [address] [place], [address] GAP 12 Normal 5-15 [facility] Comment on above: Performed By: #### L 500.2500, L506.0400, [id number] ####[facility] [address] [place], [address] GFR/1.73 sq M.predicted among non-blacks MDRD (S/P/Bld) [Vol rate/Area] 70 mL/min/{1.73_m2} Normal >60 [facility] Comment on above: Result Comment: mL/m in/1.73m2 CKD-EPI Creatinine Equation (2020) Performed By: #### L 500.2500, L506.0400, L501.9520 ####[facility] [address] [place], [address] Glucose [Mass/Vol] 119 mg/dL High 70-99 [facility] Comment on above: Performed By: #### L 500.2500, L506.0400, [id number] ####[facility] [address] [place], [address] Potassium [Moles/Vol] 3.2 mmol/L Low 3.3-5.1 [facility] Comment on above: Performed By: #### L 500.2500, L506.0400, [id number] ####[facility] [address] [place], [address] Sodium [Moles/Vol] 137 mmol/L Normal 133-145 [facility] Comment on above: Performed By: #### L 500.2500, L506.0400, [id number] ####[facility] [address] [place], [address] Urea nitrogen [Mass/Vol] 8 mg/dL Normal 4-19 [facility] Comment on above: Performed By: #### L 500.2500, L506.0400, [id number] ####[facility] [address] [place], [address] Carbon dioxide, total [Moles /volume] in Central venous bloodOrdered By: Ryan Leyva on 04-13-2025 CO2 [Moles/Vol] 24.1 mmol/L 21.0-32.0 [facility] Chloride assayOrdered By: Derrell Leyva on 04-13-2025 Chloride [Moles/Vol] 100 mmol/L 98-108 [facility] Glomerular filtration rate ( GFR) estimation/1.73 sq m using serum, plasma, or whole bOrdered By: Ryan Leyva on 04-13-2025 GFR/1.73 sq M.predicted among non-blacks MDRD (S/P/Bld) [Vol rate/Area] 70 mL/min/{1.73_m2} >60 [facility] Internal Medicine Office Vis iton 04-13-2025 Internal Medicine Office Visit Normal [facility] No Panel InformationOrdered By: Ryan Leyva on 04-13-2025 6.4 % High 4.2-6.3 [facility] Potassium measurement (mass/ volume)Ordered By: Ryan Leyva on 04-13-2025 Potassium (Unsp spec) [Mass/Vol] 3.2 mmol/L Low 3.3-5.1 [facility] Serum creatinine measurement (mass/volume)Ordered By: Ryan Leyva on 04-13-2025 Creatinine [Mass/Vol] 0.91 mg/dL 0.70-1.20 [facility] Serum glucose measurement (m ass/volume)Ordered By: Ryan Leyva on 04-13-2025 Glucose [Mass/Vol] 119 mg/dL High 70-99 [facility] Serum or plasma calcium shimon urement (mass/volume)Ordered By: Ryan Leyva on 04-13-2025 Calcium [Mass/Vol] 10.2 mg/dL 7.6-11.0 [facility] Serum or plasma urea nitroge n measurement (mass/volume)Ordered By: Ryan Leyva on 04-13-2025 Urea nitrogen [Mass/Vol] 8 mg/dL 4-19 [facility] Sodium levelOrdered By: Anahy Leyva on 04-13-2025 Sodium [Moles/Vol] 137 mmol/L 133-145 [facility] T4 Free Directon 04-13-2025 T4 FREE DIRECT 1.10 ng/dL Normal 0.76-1.46 [facility] Comment on above: Performed By: #### L 500.2500, L506.0400, L501.9579 ####[facility] [address] [place], [address] T4 freeOrdered By: Ryan Leyva on 04-13-2025 Free T4 [Mass/Vol] 1.10 ng/dL 0.76-1.46 [facility] TSH DL <= 0.005 mIU/L QnOrde red By: Ryan Leyva on 04-13-2025 TSH Qn 2.070 uIU/mL 0.300-4.200 [facility] Thyroid Stim Hormone (TSH)on 04-13-2025 TSH 2.070 uIU/mL Normal 0.300-4.200 [facility] Comment on above: Performed By: #### L 500.2500, L506.0400, [id number] ####[facility] [address] [place], [address] Pulmonary Visit Reporton Pulmonary Visit Report Normal [facility] Neurology Visit Reporton Neurology Visit Report Normal [facility] Gastroenterology Visit Repor ton 03-30-2025 Gastroenterology Visit Report Normal [facility] 6 Minute Walk Teston 025 6 Minute Walk Test Normal [facility] OT D/C of Non Returning Pton 02-09-2025 OT D/C of Non Returning Pt Normal [facility] OT General Evaluationon 01-29 OT General Evaluation Normal [facility] Neurology Visit Reporton Neurology Visit Report Normal [facility] Pulmonary Visit Reporton Pulmonary Visit Report Normal [facility] Vitamin B1, Thiamineon 01-25 VIT B1 THIAMINE 86.7 nmol/L Normal 66.5-200.0 [facility] Comment on above: Order Comment: Test( s) 869107-Pvh. B1, Whole Bloodwas developed and its performance characteristicsdetermined by [facility]. It has not been cleared or approvedby the Food and Drug Administration. Result Comment: Perf ormed at: - [address] [id number] Director: Selvin Sahu MD, Phone: [phone] Performed By: #### L 3300.8000 ####[facility] [address] [place], [address] Basic Metabolic Profile (BMP )on 01-23-2025 BUN Normal 7-18 [facility] Comment on above: Result Comment: Canc elled via OM: Order cancelled - Patient discharged Performed By: #### L 500.2500, L100.0100 ####[facility] [address] [place], [address] BUN/CRE Normal 10-20 [facility] Comment on above: Result Comment: Canc elled via OM: Order cancelled - Patient discharged Performed By: #### L 500.2500, L100.0100 ####[facility] [address] [place], [address] CA,Total Normal 8.5-10.1 [facility] Comment on above: Result Comment: Canc elled via OM: Order cancelled - Patient discharged Performed By: #### L 500.2500, L100.0100 ####[facility] [address] [place], [address] CL Normal 98-107 [facility] Comment on above: Result Comment: Canc elled via OM: Order cancelled - Patient discharged Performed By: #### L 500.2500, L100.0100 ####[facility] [address] [place], [address] CO2 Normal 21.0-32.0 [facility] Comment on above: Result Comment: Canc elled via OM: Order cancelled - Patient discharged Performed By: #### L 500.2500, L100.0100 ####[facility] [address] [place], [address] CREAT,SERUM Normal 0.55-1.02 [facility] Comment on above: Result Comment: Canc elled via OM: Order cancelled - Patient discharged Performed By: #### L 500.2500, L100.0100 ####[facility] [address] [place], [address] EST GFR Normal >60 [facility] [facility] Comment on above: Result Comment: Canc elled via OM: Order cancelled - Patient discharged Performed By: #### L 500.2500, L100.0100 ####[facility] [address] [place], [address] EST GFR - AA Normal >60 [facility] Comment on above: Result Comment: Canc elled via OM: Order cancelled - Patient discharged Performed By: #### L 500.2500, L100.0100 ####[facility] [address] [place], [address] GAP Normal 5-15 [facility] Comment on above: Result Comment: Canc elled via OM: Order cancelled - Patient discharged Performed By: #### L 500.2500, L100.0100 ####[facility] [address] [place], [address] GLU Normal 74-106 [facility] Comment on above: Result Comment: Canc elled via OM: Order cancelled - Patient discharged Performed By: #### L 500.2500, L100.0100 ####[facility] [address] [place], [address] Potassium Normal 3.5-5.1 [facility] Comment on above: Result Comment: Canc elled via OM: Order cancelled - Patient discharged Performed By: #### L 500.2500, L100.0100 ####[facility] [address] [place], [address] Basic Metabolic Profile (BMP) Normal 136-145 [facility] Comment on above: Result Comment: Canc elled via OM: Order cancelled - Patient discharged Performed By: #### L 500.2500, L100.0100 ####[facility] [address] [place], [address] CBC W/Diff, Automatedon 02-2 Absolute Neut Normal 2.0-7.7 [facility] Comment on above: Result Comment: Canc elled via OM: Order cancelled - Patient discharged Performed By: #### L 500.2500, L100.0100 ####[facility] [address] [place], [address] HCT Normal 37-47 [facility] Comment on above: Result Comment: Canc elled via OM: Order cancelled - Patient discharged Performed By: #### L 500.2500, L100.0100 ####[facility] [address] [place], [address] HGB Normal 12.0-15.0 [facility] Comment on above: Result Comment: Canc elled via OM: Order cancelled - Patient discharged Performed By: #### L 500.2500, L100.0100 ####[facility] [address] [place], [address] MCH Normal 27.0-32.0 [facility] Comment on above: Result Comment: Canc elled via OM: Order cancelled - Patient discharged Performed By: #### L 500.2500, L100.0100 ####[facility] [address] [place], [address] MCHC Normal 32-36 [facility] Comment on above: Result Comment: Canc elled via OM: Order cancelled - Patient discharged Performed By: #### L 500.2500, L100.0100 ####[facility] [address] [place], [address] MCV Normal 81-99 [facility] Comment on above: Result Comment: Canc elled via OM: Order cancelled - Patient discharged Performed By: #### L 500.2500, L100.0100 ####[facility] [address] [place], [address] NEUT% Normal 47-70 [facility] Comment on above: Result Comment: Canc elled via OM: Order cancelled - Patient discharged Performed By: #### L 500.2500, L100.0100 ####[facility] [address] [place], [address] PLT Normal 150-450 [facility] Comment on above: Result Comment: Canc elled via OM: Order cancelled - Patient discharged Performed By: #### L 500.2500, L100.0100 ####[facility] [address] [place], [address] RBC Normal 4.2-5.4 [facility] Comment on above: Result Comment: Canc elled via OM: Order cancelled - Patient discharged Performed By: #### L 500.2500, L100.0100 ####[facility] [address] [place], [address] RDW CV Normal 11.6-14.6 [facility] Comment on above: Result Comment: Canc elled via OM: Order cancelled - Patient discharged Performed By: #### L 500.2500, L100.0100 ####[facility] [address] [place], [address] RDW SD Normal 35.1-43.9 [facility] Comment on above: Result Comment: Canc elled via OM: Order cancelled - Patient discharged Performed By: #### L 500.2500, L100.0100 ####[facility] [address] [place], [address] WBC Normal 4.4-11.0 [facility] Comment on above: Result Comment: Canc elled via OM: Order cancelled - Patient discharged Performed By: #### L 500.2500, L100.0100 ####[facility] [address] [place], [address] Urine Cultureon 01-23-2025 URC Normal [facility] Comment on above: Performed By: #### M 100.2200 ####[facility] [address] [place], [address] Absolute lymphocyte countOrd ered By: Cristian Perales on 01-22-2025 Lymphocytes Auto (Unsp spec) [#/Vol] 2.90 10*3/uL 0.83-4.51 [facility] Absolute neutrophil countOrd ered By: Cristian Perales on 01-22-2025 Absolute neutrophil count 4.5 X10^3/uL 2.0-7.7 [facility] Automated lymphocyte count a s percentage of total leukocytesOrdered By: Cristian Perales on 01-22-2025 Lymphocytes/100 WBC Auto (Unsp spec) 34.1 % 19-41 [facility] Basic Metabolic Profile (BMP )on 01-22-2025 BUN/CRE 9.3 RATIO Low 10-20 [facility] Comment on above: Performed By: #### L 500.2500, L100.0100 ####[facility] [address] [place], [address] CA,Total 9.3 mg/dL Normal 8.5-10.1 [facility] Comment on above: Performed By: #### L 500.2500, L100.0100 ####[facility] [address] [place], [address] Chloride [Moles/Vol] 108 mmol/L High 98-107 [facility] Comment on above: Performed By: #### L 500.2500, L100.0100 ####[facility] [address] [place], [address] CO2 [Moles/Vol] 25.0 mmol/L Normal 21.0-32.0 [facility] Comment on above: Performed By: #### L 500.2500, L100.0100 ####[facility] [address] [place], [address] Creatinine [Mass/Vol] 0.86 mg/dL Normal 0.55-1.02 [facility] Comment on above: Result Comment: The validity of the calculated GFR GFRAA in patients over70 years has not been determined. Clinical correlation isessential. Performed By: #### L 500.2500, L100.0100 ####[facility] [address] [place], [address] ECRCL 80.59 ml/min Normal [facility] Comment on above: Performed By: #### L 500.2500, L100.0100 ####[facility] [address] [place], [address] EST GFR - AA 85 mL/min Normal >60 [facility] Comment on above: Result Comment: Afri can Ukrainian GFR Calc Performed By: #### L 500.2500, L100.0100 ####[facility] [address] [place], [address] GAP 7 Normal 5-15 [facility] Comment on above: Performed By: #### L 500.2500, L100.0100 ####[facility] [address] [place], [address] GFR/1.73 sq M.predicted among non-blacks MDRD (S/P/Bld) [Vol rate/Area] 70 mL/min/{1.73_m2} Normal >60 [facility] Comment on above: Result Comment: Non- GFR Calc Performed By: #### L 500.2500, L100.0100 ####[facility] [address] [place], [address] Glucose [Mass/Vol] 117 mg/dL High 74-106 [facility] Comment on above: Result Comment: Fast ing Glucose result from 100 to 125 mg/dLsuggests IMPAIRED HOMEOSTASIS per A.D.A. criteria. Performed By: #### L 500.2500, L100.0100 ####[facility] [address] [place], [address] Potassium [Moles/Vol] 3.9 mmol/L Normal 3.5-5.1 [facility] Comment on above: Performed By: #### L 500.2500, L100.0100 ####[facility] [address] [place], [address] Sodium [Moles/Vol] 140 mmol/L Normal 136-145 [facility] Comment on above: Performed By: #### L 500.2500, L100.0100 ####[facility] [address] [place], [address] Urea nitrogen [Mass/Vol] 8 mg/dL Normal 7-18 [facility] Comment on above: Performed By: #### L 500.2500, L100.0100 ####[facility] [address] [place], [address] Basophil percentageOrdered B y: Cristian Perales on 01-22-2025 Basophils/100 WBC (Bld) 1.1 % High 0-1 [facility] Basophil percentage 1.1 % High 0-1 [facility] Blood urea nitrogen (BUN)/cr eatinine ratioOrdered By: Cristian Perales on 01-22-2025 Blood urea nitrogen (BUN)/creatinine ratio 9.3 RATIO Low 10-20 [facility] CBC W/Diff, Automatedon 01-02 Absolute Lymph 2.90 X10 3/uL Normal 0.83-4.51 [facility] Comment on above: Performed By: #### L 500.2500, L100.0100 ####[facility] [address] [place], [address] Absolute Neut 4.5 X10 3/uL Normal 2.0-7.7 [facility] Comment on above: Performed By: #### L 500.2500, L100.0100 ####[facility] [address] [place], [address] Basophils/100 WBC (Bld) 1.1 % High 0-1 [facility] Comment on above: Performed By: #### L 500.2500, L100.0100 ####[facility] [address] [place], [address] Eosinophils/100 WBC (Bld) 3.8 % Normal 0-5 [facility] Comment on above: Performed By: #### L 500.2500, L100.0100 ####[facility] [address] [place], [address] Erythrocyte distribution width (RBC) [Ratio] 13.0 % Normal 11.6-14.6 [facility] Comment on above: Performed By: #### L 500.2500, L100.0100 ####[facility] [address] [place], [address] Hematocrit (Bld) [Volume fraction] 38.5 % Normal 37-47 [facility] Comment on above: Performed By: #### L 500.2500, L100.0100 ####[facility] [address] [place], [address] Hemoglobin (Bld) [Mass/Vol] 12.8 g/dL Normal 12.0-15.0 [facility] Comment on above: Performed By: #### L 500.2500, L100.0100 ####[facility] [address] [place], [address] IG% 0.400 Normal 0.0-0.9 [facility] Comment on above: Result Comment: IG% - Immature Granulocytes (promyelocytes, myelocytes andmetamyelocytes) > 1% indicates that a LEFT SHIFT is Present. Performed By: #### L 500.2500, L100.0100 ####[facility] [address] [place], [address] Lymphocytes/100 WBC (Bld) 34.1 % Normal 19-41 [facility] Comment on above: Performed By: #### L 500.2500, L100.0100 ####[facility] [address] [place], [address] MCH (RBC) [Entitic mass] 31.4 pg Normal 27.0-32.0 [facility] Comment on above: Performed By: #### L 500.2500, L100.0100 ####[facility] [address] [place], [address] MCHC (RBC) [Mass/Vol] 33.2 g/dL Normal 32-36 [facility] Comment on above: Performed By: #### L 500.2500, L100.0100 ####[facility] [address] [place], [address] MCV (RBC) [Entitic vol] 94.4 fL Normal 81-99 [facility] Comment on above: Performed By: #### L 500.2500, L100.0100 ####[facility] [address] [place], [address] Monocytes/100 WBC (Bld) 8.2 % Normal 0-10 [facility] Comment on above: Performed By: #### L 500.2500, L100.0100 ####[facility] [address] [place], [address] Neutrophils/100 WBC (Bld) 52.4 % Normal 47-70 [facility] Comment on above: Performed By: #### L 500.2500, L100.0100 ####[facility] [address] [place], [address] Nucleated RBC (Bld) [#/Vol] 0 10*3/uL Normal 0-5 [facility] Comment on above: Performed By: #### L 500.2500, L100.0100 ####[facility] [address] [place], [address] Platelet mean volume (Bld) [Entitic vol] 9.6 fL Normal 6.2-12.0 [facility] Comment on above: Performed By: #### L 500.2500, L100.0100 ####[facility] [address] [place], [address] Platelets (Bld) [#/Vol] 267 10*3/uL Normal 150-450 [facility] Comment on above: Performed By: #### L 500.2500, L100.0100 ####[facility] [address] [place], [address] RBC (Bld) [#/Vol] 4.08 10*6/uL Low 4.2-5.4 [facility] Comment on above: Performed By: #### L 500.2500, L100.0100 ####[facility] [address] [place], [address] RDW SD 44.5 fl High 35.1-43.9 [facility] Comment on above: Performed By: #### L 500.2500, L100.0100 ####[facility] [address] [place], [address] WBC (Bld) [#/Vol] 8.5 10*3/uL Normal 4.4-11.0 [facility] Comment on above: Performed By: #### L 500.2500, L100.0100 ####[facility] [address] [place], [address] Calcium [Mass/Vol]Ordered By : Cristian Perales on 01-22-2025 Serum or plasma calcium measurement (mass/volume) 9.3 mg/dL 8.5-10.1 [facility] Carbon dioxide measurementOr dered By: Cristian Perales on 01-22-2025 CO2 [Moles/Vol] 25.0 mmol/L 21.0-32.0 [facility] Carbon dioxide measurement 25.0 mmol/L 21.0-32.0 [facility] Chloride measurementOrdered By: Cristian Perales on 01-22-2025 Chloride [Moles/Vol] 108 mmol/L High 98-107 [facility] Chloride measurement 108 mmol/L High 98-107 [facility] Creatinine [Mass/Vol]Ordered By: Cristian Perales on 01-22-2025 Serum or plasma creatinine measurement (mass/volume) 0.86 mg/dL 0.55-1.02 [facility] Discharge Instructionon 01-02 Discharge Instruction Normal [facility] Eosinophil percentageOrdered By: Cristian Perales on 01-22-2025 Eosinophils/100 WBC (Bld) 3.8 % 0-5 [facility] Eosinophil percentage 3.8 % 0-5 [facility] Erythrocyte distribution wid th (RBC) [Ratio]Ordered By: Cristian Perales on 01-22-2025 Erythrocyte distribution width ratio 13.0 % 11.6-14.6 [facility] Erythrocyte distribution width standard deviation 44.5 fl High 35.1-43.9 [facility] Erythrocyte distribution wid th ratioOrdered By: Cristian Perales on 01-22-2025 Erythrocyte distribution width (RBC) [Ratio] 13.0 % 11.6-14.6 [facility] Erythrocyte distribution wid th standard deviationOrdered By: Cristian Perales on 01-22-2025 Erythrocyte distribution width (RBC) [Ratio] 44.5 fl High 35.1-43.9 [facility] Estimated glomerular filtrat ion rate (GFR) AmericanOrdered By: Cristian Perales on 01-22-2025 Estimated glomerular filtration rate (GFR) 85 mL/min >60 [facility] Estimation of creatinine junior aranceOrdered By: Cristian Perales on 01-22-2025 Estimation of creatinine clearance 80.59 ml/min [facility] Folates, (Folic Acid)on 01-02 FOLATES 17.40 ng/mL Normal 3.1-55.4 [facility] Comment on above: Order Comment: as ad d on Result Comment: Slig ht Hemolysis, Result may be falsely increased. Performed By: #### L 506.0250 ####[facility] [address] [place], [address] Folic acid measurementOrdere d By: Cristian Perales on 01-22-2025 Folic acid measurement 17.40 ng/mL 3.1-55.4 [facility] Glomerular filtration rate ( GFR) estimationOrdered By: Cristian Perales on 01-22-2025 GFR/1.73 sq M.predicted among non-blacks MDRD (S/P/Bld) [Vol rate/Area] 70 mL/min/{1.73_m2} >60 [facility] Glomerular filtration rate (GFR) estimation 70 mL/min >60 [facility] Glucose measurementOrdered B y: Cristian Perales on 01-22-2025 Glucose [Mass/Vol] 117 mg/dL High 74-106 [facility] Glucose measurement 117 mg/dL High 74-106 [facility] Hematocrit Auto (Bld) [Volum e fraction]Ordered By: Cristian Perales on 01-22-2025 Hematocrit (Bld) [Volume fraction] 38.5 % 37-47 [facility] Automated blood hematocrit (percentage) 38.5 % 37-47 [facility] Hemoglobin measurementOrdere d By: Cristian Perales on 01-22-2025 Hemoglobin (Bld) [Mass/Vol] 12.8 g/dL 12.0-15.0 [facility] Hemoglobin measurement 12.8 g/dL 12.0-15.0 [facility] Immature granulocytes/100 WB C Auto (Bld)Ordered By: Cristian Perales on 01-22-2025 Immature granulocytes/100 WBC (Bld) 0.400 % 0.0-0.9 [facility] Automated immature granulocyte percentage 0.400 % 0.0-0.9 [facility] Lymphocytes Auto (Unsp spec) [#/Vol]Ordered By: Cristian Perales on 01-22-2025 Absolute lymphocyte count 2.90 X10^3/uL 0.83-4.51 [facility] Lymphocytes/100 WBC Auto (Un sp spec)Ordered By: Cristian Perales on 01-22-2025 Automated lymphocyte count as percentage of total leukocytes 34.1 % 19-41 [facility] MCV (RBC) [Entitic vol]Order ed By: Cristian Perales on 01-22-2025 MCV (mean corpuscular volume) determination 94.4 fL 81-99 [facility] MCV (mean corpuscular volume ) determinationOrdered By: Cristian Perales on 01-22-2025 MCV (RBC) [Entitic vol] 94.4 fL 81-99 [facility] Mean corpuscular hemoglobin (MCH) determinationOrdered By: Cristian Perales on 01-22-2025 MCH (RBC) [Entitic mass] 31.4 pg 27.0-32.0 [facility] Mean corpuscular hemoglobin (MCH) determination 31.4 pg 27.0-32.0 [facility] Mean corpuscular hemoglobin concentration (MCHC) determinationOrdered By: Cristian Perales on 01-22-2025 Mean corpuscular hemoglobin concentration (MCHC) determination 33.2 g/dL 32-36 [facility] Mean platelet volume determi nationOrdered By: Cristian Perales on 01-22-2025 Mean platelet volume determination 9.6 fl 6.2-12.0 [facility] Monocyte percentageOrdered B y: Cristian Perales on 01-22-2025 Monocytes/100 WBC (Bld) 8.2 % 0-10 [facility] Monocyte percentage 8.2 % 0-10 [facility] Neutrophil percentageOrdered By: Cristian Perales on 01-22-2025 Neutrophils/100 WBC (Bld) 52.4 % 47-70 [facility] Neutrophil percentage 52.4 % 47-70 [facility] Nucleated red blood cell per centageOrdered By: Cristian Perales on 01-22-2025 Nucleated red blood cell percentage 0 % 0-5 [facility] Platelet countOrdered By: Sia Perales on 01-22-2025 Platelets (Bld) [#/Vol] 267 10*3/uL 150-450 [facility] Platelet count 267 K/mm3 150-450 [facility] Potassium measurementOrdered By: Cristian Perales on 01-22-2025 Potassium [Moles/Vol] 3.9 mmol/L 3.5-5.1 [facility] Potassium measurement 3.9 mmol/L 3.5-5.1 [facility] RBC Auto (Bld) [#/Vol]Ordere d By: Cristian Perales on 01-22-2025 RBC (Bld) [#/Vol] 4.08 10*6/uL Low 4.2-5.4 [facility] Automated blood erythrocyte count 4.08 M/mm3 Low 4.2-5.4 [facility] Serum anion gap measurementO rdered By: Cristian Perales on 01-22-2025 Serum anion gap measurement 7 5-15 [facility] Serum or plasma calcium shimon urement (mass/volume)Ordered By: Cristian Perales on 01-22-2025 Calcium [Mass/Vol] 9.3 mg/dL 8.5-10.1 [facility] Serum or plasma creatinine m easurement (mass/volume)Ordered By: Cristian Perales on 01-22-2025 Creatinine [Mass/Vol] 0.86 mg/dL 0.55-1.02 [facility] Serum or plasma thiamine may surement (mass/volume)Ordered By: Cristian Perales on 01-22-2025 Thiamine [Mass/Vol] 86.7 nmol/L 66.5-200.0 [facility] Serum or plasma urea nitroge n measurement (mass/volume)Ordered By: Cristian Perales on 01-22-2025 Urea nitrogen [Mass/Vol] 8 mg/dL 7-18 [facility] Sodium levelOrdered By: Dipesh Perales on 01-22-2025 Sodium [Moles/Vol] 140 mmol/L 136-145 [facility] Sodium level 140 mmol/L 136-145 [facility] Thiamine [Mass/Vol]Ordered B y: Cristian Perales on 01-22-2025 Serum or plasma thiamine measurement (mass/volume) 86.7 nmol/L 66.5-200.0 [facility] Urea nitrogen [Mass/Vol]Orde red By: Cristian Perales on 01-22-2025 Serum or plasma urea nitrogen measurement (mass/volume) 8 mg/dL 7-18 [facility] White blood cell (WBC) count Ordered By: Cristian Perales on 01-22-2025 WBC (Bld) [#/Vol] 8.5 10*3/uL 4.4-11.0 [facility] White blood cell (WBC) count 8.5 K/mm3 4.4-11.0 [facility] ALP [Catalytic activity/Vol] Ordered By: Ramila Chow on 01-21-2025 Serum or plasma alkaline phosphatase measurement 55 U/L 45-117 [facility] ALT [Catalytic activity/Vol] Ordered By: Ramila Chow on 01-21-2025 Serum or plasma alanine aminotransferase (ALT) measurement 23 U/L 13-56 [facility] Albumin [Mass/Vol]Ordered By : Ramila Chow on 01-21-2025 Serum or plasma albumin measurement (mass/volume) 3.1 g/dL Low 3.2-5.0 [facility] Albumin to globulin ratioOrd ered By: Ramila Chow on 01-21-2025 Albumin to globulin ratio 0.9 RATIO 0.9-2.4 [facility] Bedside Glucoseon 01-21-2025 FINGERSTICK GLU 110 mg/dL High 74-106 [facility] Comment on above: Result Comment: MIGUEL CONTRERAS OF PATIENT CARE PER NURSING PROTOCOL Performed By: #### L 501.080 ####[facility] [address] [place], [address] Bilirubin, totalOrdered By: Ramila Chow on 01-21-2025 Bilirubin [Mass/Vol] 1.20 mg/dL High 0.20-1.00 [facility] Bilirubin, total 1.20 mg/dL High 0.20-1.00 [facility] CBC W/Diff, Automatedon 01-02 Absolute Lymph 3.14 X10 3/uL Normal 0.83-4.51 [facility] Comment on above: Performed By: #### L 500.4050, L100.0100, L503.0105, L501.9520 ####[facility] [address] [place], [address] Absolute Neut 3.9 X10 3/uL Normal 2.0-7.7 [facility] Comment on above: Performed By: #### L 500.4050, L100.0100, L503.0105, L501.9520 ####[facility] [address] [place], [address] Basophils/100 WBC (Bld) 1.1 % High 0-1 [facility] Comment on above: Performed By: #### L 500.4050, L100.0100, L503.0105, L501.9520 ####[facility] [address] [place], [address] Eosinophils/100 WBC (Bld) 3.4 % Normal 0-5 [facility] Comment on above: Performed By: #### L 500.4050, L100.0100, L503.0105, L501.9520 ####[facility] [address] [place], [address] Erythrocyte distribution width (RBC) [Ratio] 13.0 % Normal 11.6-14.6 [facility] Comment on above: Performed By: #### L 500.4050, L100.0100, L503.0105, L501.9520 ####[facility] [address] [place], [address] Hematocrit (Bld) [Volume fraction] 37.2 % Normal 37-47 [facility] Comment on above: Performed By: #### L 500.4050, L100.0100, L503.0105, L501.9520 ####[facility] [address] [place], [address] Hemoglobin (Bld) [Mass/Vol] 12.4 g/dL Normal 12.0-15.0 [facility] Comment on above: Performed By: #### L 500.4050, L100.0100, L503.0105, L501.9520 ####[facility] [address] [place], [address] IG% 0.500 Normal 0.0-0.9 [facility] Comment on above: Result Comment: IG% - Immature Granulocytes (promyelocytes, myelocytes andmetamyelocytes) > 1% indicates that a LEFT SHIFT is Present. Performed By: #### L 500.4050, L100.0100, L503.0105, L501.9520 ####[facility] [address] [place], [address] Lymphocytes/100 WBC (Bld) 38.3 % Normal 19-41 [facility] Comment on above: Performed By: #### L 500.4050, L100.0100, L503.0105, L501.9520 ####[facility] [address] [place], [address] MCH (RBC) [Entitic mass] 31.6 pg Normal 27.0-32.0 [facility] Comment on above: Performed By: #### L 500.4050, L100.0100, L503.0105, L501.9520 ####[facility] [address] [place], [address] MCHC (RBC) [Mass/Vol] 33.3 g/dL Normal 32-36 [facility] Comment on above: Performed By: #### L 500.4050, L100.0100, L503.0105, L501.9520 ####[facility] [address] [place], [address] MCV (RBC) [Entitic vol] 94.9 fL Normal 81-99 [facility] Comment on above: Performed By: #### L 500.4050, L100.0100, L503.0105, L501.9520 ####[facility] [address] [place], [address] Monocytes/100 WBC (Bld) 9.3 % Normal 0-10 [facility] Comment on above: Performed By: #### L 500.4050, L100.0100, L503.0105, L501.9520 ####[facility] [address] [place], [address] Neutrophils/100 WBC (Bld) 47.4 % Normal 47-70 [facility] Comment on above: Performed By: #### L 500.4050, L100.0100, L503.0105, L501.9520 ####[facility] [address] [place], [address] Nucleated RBC (Bld) [#/Vol] 0 10*3/uL Normal 0-5 [facility] Comment on above: Performed By: #### L 500.4050, L100.0100, L503.0105, L501.9520 ####[facility] [address] [place], [address] Platelet mean volume (Bld) [Entitic vol] 9.7 fL Normal 6.2-12.0 [facility] Comment on above: Performed By: #### L 500.4050, L100.0100, L503.0105, L501.9520 ####[facility] [address] [place], [address] Platelets (Bld) [#/Vol] 256 10*3/uL Normal 150-450 [facility] Comment on above: Performed By: #### L 500.4050, L100.0100, L503.0105, L501.9520 ####[facility] [address] [place], [address] RBC (Bld) [#/Vol] 3.92 10*6/uL Low 4.2-5.4 [facility] Comment on above: Performed By: #### L 500.4050, L100.0100, L503.0105, L501.9520 ####[facility] [address] [place], [address] RDW SD 45.1 fl High 35.1-43.9 [facility] Comment on above: Performed By: #### L 500.4050, L100.0100, L503.0105, L501.9520 ####[facility] [address] [place], [address] WBC (Bld) [#/Vol] 8.2 10*3/uL Normal 4.4-11.0 [facility] Comment on above: Performed By: #### L 500.4050, L100.0100, L503.0105, L501.9520 ####[facility] [address] [place], [address] Comprehensive Metabolic Prof ilon 01-21-2025 Albumin [Mass/Vol] 3.1 g/dL Low 3.2-5.0 [facility] Comment on above: Performed By: #### L 500.4050, L100.0100, L503.0105, L501.9520 ####[facility] [address] [place], [address] Albumin/Globulin [Mass ratio] 0.9 {ratio} Normal 0.9-2.4 [facility] Comment on above: Performed By: #### L 500.4050, L100.0100, L503.0105, L501.9520 ####[facility] [address] [place], [address] ALK P 55 U/L Normal 45-117 [facility] Comment on above: Performed By: #### L 500.4050, L100.0100, L503.0105, L501.9520 ####[facility] [address] [place], [address] ALT [Catalytic activity/Vol] 23 U/L Normal 13-56 [facility] Comment on above: Performed By: #### L 500.4050, L100.0100, L503.0105, L501.9520 ####[facility] [address] [place], [address] AST [Catalytic activity/Vol] 25 U/L Normal 15-37 [facility] Comment on above: Performed By: #### L 500.4050, L100.0100, L503.0105, L501.9520 ####[facility] [address] [place], [address] Bilirubin [Mass/Vol] 1.20 mg/dL High 0.20-1.00 [facility] Comment on above: Result Comment: For patients on eltrombopag therapy, use of Dimension [place] TBIL is not recommended. Performed By: #### L 500.4050, L100.0100, L503.0105, L501.9520 ####[facility] [address] [place], [address] BUN/CRE 10.0 RATIO Normal 10-20 [facility] Comment on above: Performed By: #### L 500.4050, L100.0100, L503.0105, L501.9520 ####[facility] [address] [place], [address] CA,Total 8.7 mg/dL Normal 8.5-10.1 [facility] Comment on above: Performed By: #### L 500.4050, L100.0100, L503.0105, L501.9520 ####[facility] [address] [place], [address] Chloride [Moles/Vol] 110 mmol/L High 98-107 [facility] Comment on above: Performed By: #### L 500.4050, L100.0100, L503.0105, L501.9520 ####[facility] [address] [place], [address] CO2 [Moles/Vol] 24.0 mmol/L Normal 21.0-32.0 [facility] Comment on above: Performed By: #### L 500.4050, L100.0100, L503.0105, L501.9520 ####[facility] [address] [place], [address] Creatinine [Mass/Vol] 0.90 mg/dL Normal 0.55-1.02 [facility] Comment on above: Result Comment: The validity of the calculated GFR GFRAA in patients over70 years has not been determined. Clinical correlation isessential. Performed By: #### L 500.4050, L100.0100, L503.0105, L501.9520 ####[facility] [address] [place], [address] ECRCL 77.01 ml/min Normal [facility] Comment on above: Performed By: #### L 500.4050, L100.0100, L503.0105, L501.9520 ####[facility] [address] [place], [address] EST GFR - AA 80 mL/min Normal >60 [facility] Comment on above: Result Comment: Afri can Ukrainian GFR Calc Performed By: #### L 500.4050, L100.0100, L503.0105, L501.9520 ####[facility] [address] [place], [address] GAP 8 Normal 5-15 [facility] Comment on above: Performed By: #### L 500.4050, L100.0100, L503.0105, L501.9520 ####[facility] [address] [place], [address] GFR/1.73 sq M.predicted among non-blacks MDRD (S/P/Bld) [Vol rate/Area] 66 mL/min/{1.73_m2} Normal >60 [facility] Comment on above: Result Comment: Non- GFR Calc Performed By: #### L 500.4050, L100.0100, L503.0105, L501.9520 ####[facility] [address] [place], [address] Globulin (S) [Mass/Vol] 3.3 g/dL Normal 2.2-4.2 [facility] Comment on above: Performed By: #### L 500.4050, L100.0100, L503.0105, L501.9520 ####[facility] [address] [place], [address] Glucose [Mass/Vol] 98 mg/dL Normal 74-106 [facility] Comment on above: Performed By: #### L 500.4050, L100.0100, L503.0105, L501.9520 ####[facility] [address] [place], [address] Potassium [Moles/Vol] 3.8 mmol/L Normal 3.5-5.1 [facility] Comment on above: Performed By: #### L 500.4050, L100.0100, L503.0105, L501.9520 ####[facility] [address] [place], [address] Sodium [Moles/Vol] 141 mmol/L Normal 136-145 [facility] Comment on above: Performed By: #### L 500.4050, L100.0100, L503.0105, L501.9520 ####[facility] [address] [place], [address] T PROT 6.4 g/dL Normal 6.4-8.2 [facility] Comment on above: Performed By: #### L 500.4050, L100.0100, L503.0105, L501.9520 ####[facility] [address] [place], [address] Urea nitrogen [Mass/Vol] 9 mg/dL Normal 7-18 [facility] Comment on above: Performed By: #### L 500.4050, L100.0100, L503.0105, L501.9520 ####[facility] [address] [place], [address] Glucose measurement at bedsi deOrdered By: Cristian Perales on 01-21-2025 Glucose [Mass/Vol] 110 mg/dL High 74-106 [facility] Glucose measurement at bedside 110 mg/dL High 74-106 [facility] MR/CON.PCM.NEon 01-21-2025 MR/CON.PCM.NE Normal [facility] No Panel InformationOrdered By: Ramila Chow on 01-21-2025 25 U/L 15-37 [facility] Serum globulin measurementOr dered By: Ramila Chow on 01-21-2025 Globulin (S) [Mass/Vol] 3.3 g/dL 2.2-4.2 [facility] Serum globulin measurement 3.3 g/dL 2.2-4.2 [facility] Serum or plasma alanine faust otransferase (ALT) measurementOrdered By: Ramila Chow on 01-21-2025 ALT [Catalytic activity/Vol] 23 U/L 13-56 [facility] Serum or plasma albumin shimon urement (mass/volume)Ordered By: Ramila Chow on 01-21-2025 Albumin [Mass/Vol] 3.1 g/dL Low 3.2-5.0 [facility] Serum or plasma alkaline davina sphatase measurementOrdered By: Ramila Chow on 01-21-2025 ALP [Catalytic activity/Vol] 55 U/L 45-117 [facility] Serum or plasma thyroid stim ulating hormone (TSH) measurement (units/volume)Ordered By: Ramila Chow on 01-21-2025 TSH Qn 2.150 uIU/mL 0.358-3.740 [facility] TSH QnOrdered By: Ramila walsh on 01-21-2025 Serum or plasma thyroid stimulating hormone (TSH) measurement (units/volume) 2.150 uIU/mL 0.358-3.740 [facility] Thyroid Stim Hormone (TSH)on 01-21-2025 TSH 2.150 uIU/mL Normal 0.358-3.740 [facility] Comment on above: Performed By: #### L 500.4050, L100.0100, L503.0105, L501.9520 ####[facility] [address] [place], [address] Total proteinOrdered By: Earl Cohw on 01-21-2025 Protein [Mass/Vol] 6.4 g/dL 6.4-8.2 [facility] Total protein 6.4 g/dL 6.4-8.2 [facility] Vitamin B12on 01-21-2025 Cobalamin (Vitamin B12) [Mass/Vol] 156 pg/mL Low 211-911 [facility] Comment on above: Performed By: #### L 500.4050, L100.0100, L503.0105, L501.2791 ####[facility] [address] [place], [place], [address] Vitamin B12 measurementOrder ed By: Ramila Chow on 01-21-2025 Cobalamin (Vitamin B12) [Mass/Vol] 156 pg/mL Low 211-911 [facility] Vitamin B12 measurement 156 pg/mL Low 211-911 [facility] 12 Lead EKGon 01-20-2025 12 Lead EKG Normal [facility] Ammoniaon 01-20-2025 Ammonia (P) [Moles/Vol] 17.0 umol/L Normal 11-32 [facility] Comment on above: Performed By: #### L 503.5510 ####[facility] [address] [place], [place], [id number] Bacteria LM.HPF (Urine sed) [#/Area]Ordered By: Maris Bland on 01-20-2025 Urine sediment bacteria count by microscopy (number/high power field) 3+ /hpf None Seen [facility] Base excess Calc (BldV) [Mol es/Vol]Ordered By: Ramila Chow on 01-20-2025 Venous blood base excess measurement -1 mmol/L -1.0-3.5 [facility] Bedside Glucoseon 01-20-2025 FINGERSTICK GLU 81 mg/dL Normal 74-106 [facility] Comment on above: Result Comment: MIGUEL CONTRERAS OF PATIENT CARE PER NURSING PROTOCOL Performed By: #### L 501.080 ####[facility] [address] [place], [address] Bilirubin Test strip Ql (U)O rdered By: Maris Bland on 01-20-2025 Bilirubin Ql (U) Negative Negative [facility] Brain/Head without Contrasto n 01-20-2025 Brain/Head without Contrast Normal [facility] CBC W/Diff, Automatedon 01-02 Absolute Lymph 3.85 X10 3/uL Normal 0.83-4.51 [facility] Comment on above: Performed By: #### L 500.4050, L100.0100, L501.3620 ####[facility] [address] [place], [address] Absolute Neut 5.3 X10 3/uL Normal 2.0-7.7 [facility] Comment on above: Performed By: #### L 500.4050, L100.0100, L501.3620 ####[facility] [address] [place], [address] Basophils/100 WBC (Bld) 1.1 % High 0-1 [facility] Comment on above: Performed By: #### L 500.4050, L100.0100, L501.3620 ####[facility] [address] [place], [address] Eosinophils/100 WBC (Bld) 3.7 % Normal 0-5 [facility] Comment on above: Performed By: #### L 500.4050, L100.0100, L501.3620 ####[facility] [address] [place], [address] Erythrocyte distribution width (RBC) [Ratio] 12.9 % Normal 11.6-14.6 [facility] Comment on above: Performed By: #### L 500.4050, L100.0100, L501.3620 ####[facility] [address] [place], [address] Hematocrit (Bld) [Volume fraction] 41.1 % Normal 37-47 [facility] Comment on above: Performed By: #### L 500.4050, L100.0100, L501.3620 ####[facility] [address] [place], [address] Hemoglobin (Bld) [Mass/Vol] 13.4 g/dL Normal 12.0-15.0 [facility] Comment on above: Performed By: #### L 500.4050, L100.0100, L501.3620 ####[facility] [address] [place], [address] IG% 0.800 Normal 0.0-0.9 [facility] Comment on above: Result Comment: IG% - Immature Granulocytes (promyelocytes, myelocytes andmetamyelocytes) > 1% indicates that a LEFT SHIFT is Present. Performed By: #### L 500.4050, L100.0100, L501.3620 ####[facility] [address] [place], [address] Lymphocytes/100 WBC (Bld) 36.3 % Normal 19-41 [facility] Comment on above: Performed By: #### L 500.4050, L100.0100, L501.3620 ####[facility] [address] [place], [address] MCH (RBC) [Entitic mass] 31.0 pg Normal 27.0-32.0 [facility] Comment on above: Performed By: #### L 500.4050, L100.0100, L501.3620 ####[facility] [address] [place], [address] MCHC (RBC) [Mass/Vol] 32.6 g/dL Normal 32-36 [facility] Comment on above: Performed By: #### L 500.4050, L100.0100, L501.3620 ####[facility] [address] [place], [address] MCV (RBC) [Entitic vol] 95.1 fL Normal 81-99 [facility] Comment on above: Performed By: #### L 500.4050, L100.0100, L501.3620 ####[facility] [address] [place], [address] Monocytes/100 WBC (Bld) 8.5 % Normal 0-10 [facility] Comment on above: Performed By: #### L 500.4050, L100.0100, L501.3620 ####[facility] [address] [place], [address] Neutrophils/100 WBC (Bld) 49.6 % Normal 47-70 [facility] Comment on above: Performed By: #### L 500.4050, L100.0100, L501.3620 ####[facility] [address] [place], [address] Nucleated RBC (Bld) [#/Vol] 0 10*3/uL Normal 0-5 [facility] Comment on above: Performed By: #### L 500.4050, L100.0100, L501.3620 ####[facility] [address] [place], [address] Platelet mean volume (Bld) [Entitic vol] 9.7 fL Normal 6.2-12.0 [facility] Comment on above: Performed By: #### L 500.4050, L100.0100, L501.3620 ####[facility] [address] [place], [address] Platelets (Bld) [#/Vol] 291 10*3/uL Normal 150-450 [facility] Comment on above: Performed By: #### L 500.4050, L100.0100, L501.3620 ####[facility] [address] [place], [address] RBC (Bld) [#/Vol] 4.32 10*6/uL Normal 4.2-5.4 [facility] Comment on above: Performed By: #### L 500.4050, L100.0100, L501.3620 ####[facility] [address] [place], [address] RDW SD 45.1 fl High 35.1-43.9 [facility] Comment on above: Performed By: #### L 500.4050, L100.0100, L501.3620 ####[facility] [address] [place], [address] WBC (Bld) [#/Vol] 10.6 10*3/uL Normal 4.4-11.0 [facility] Comment on above: Performed By: #### L 500.4050, L100.0100, L501.3620 ####[facility] [address] [place], [address] CO2 (BldV) [Moles/Vol]Ordere d By: Ramila Chow on 01-20-2025 CO2 [Moles/Vol] 26 mmol/L 23-33 [facility] Venous blood total carbon dioxide measurement 26 mmol/L 23-33 [facility] CO2 (BldV) [Partial pressure ]Ordered By: Ramila Chow on 01-20-2025 Venous blood partial pressure of carbon dioxide measurement 42.5 mmHg 41-51 [facility] CPK Total, Creatine Kinaseon 01-20-2025 CPK TOTAL 90 U/L Normal 26-192 [facility] Comment on above: Performed By: #### L 500.4050, L100.0100, L501.3620 ####[facility] [address] [place], [address] Chest 1 View (Portable)on Chest 1 View (Portable) Normal [facility] Clarity (U)Ordered By: Stanley Bland on 01-20-2025 Urine clarity Clear Clear [facility] Color (U)Ordered By: Maris Bland on 01-20-2025 Urine color determination Yellow Yellow [facility] Comprehensive Metabolic Prof ilon 01-20-2025 Albumin [Mass/Vol] 3.6 g/dL Normal 3.2-5.0 [facility] Comment on above: Performed By: #### L 500.4050, L100.0100, L501.3620 ####[facility] [address] [place], [address] Albumin/Globulin [Mass ratio] 1.0 {ratio} Normal 0.9-2.4 [facility] Comment on above: Performed By: #### L 500.4050, L100.0100, L501.3620 ####[facility] [address] [place], [address] ALK P 64 U/L Normal 45-117 [facility] Comment on above: Performed By: #### L 500.4050, L100.0100, L501.3620 ####[facility] [address] [place], [address] ALT [Catalytic activity/Vol] 29 U/L Normal 13-56 [facility] Comment on above: Performed By: #### L 500.4050, L100.0100, L501.3620 ####[facility] [address] [place], [address] AST [Catalytic activity/Vol] 25 U/L Normal 15-37 [facility] Comment on above: Performed By: #### L 500.4050, L100.0100, L501.3620 ####[facility] [address] [place], [address] Bilirubin [Mass/Vol] 1.20 mg/dL High 0.20-1.00 [facility] Comment on above: Result Comment: For patients on eltrombopag therapy, use of Dimension [place] TBIL is not recommended. Performed By: #### L 500.4050, L100.0100, L501.3620 ####[facility] [address] [place], [address] BUN/CRE 11.8 RATIO Normal 10-20 [facility] Comment on above: Performed By: #### L 500.4050, L100.0100, L501.3620 ####[facility] [address] [place], [address] CA,Total 9.6 mg/dL Normal 8.5-10.1 [facility] Comment on above: Performed By: #### L 500.4050, L100.0100, L501.3620 ####[facility] [address] [place], [address] Chloride [Moles/Vol] 104 mmol/L Normal 98-107 [facility] Comment on above: Performed By: #### L 500.4050, L100.0100, L501.3620 ####[facility] [address] [place], [address] CO2 [Moles/Vol] 28.0 mmol/L Normal 21.0-32.0 [facility] Comment on above: Performed By: #### L 500.4050, L100.0100, L501.3620 ####[facility] [address] [place], [address] Creatinine [Mass/Vol] 1.02 mg/dL Normal 0.55-1.02 [facility] Comment on above: Result Comment: The validity of the calculated GFR GFRAA in patients over70 years has not been determined. Clinical correlation isessential. Performed By: #### L 500.4050, L100.0100, L501.3620 ####[facility] [address] [place], [address] ECRCL 67.95 ml/min Normal [facility] Comment on above: Performed By: #### L 500.4050, L100.0100, L501.3620 ####[facility] [address] [place], [address] EST GFR - AA 70 mL/min Normal >60 [facility] Comment on above: Result Comment: Afri can Ukrainian GFR Calc Performed By: #### L 500.4050, L100.0100, L501.3620 ####[facility] [address] [place], [address] GAP 6 Normal 5-15 [facility] Comment on above: Performed By: #### L 500.4050, L100.0100, L501.3620 ####[facility] [address] [place], [address] GFR/1.73 sq M.predicted among non-blacks MDRD (S/P/Bld) [Vol rate/Area] 58 mL/min/{1.73_m2} Low >60 [facility] Comment on above: Result Comment: Non- GFR Calc Performed By: #### L 500.4050, L100.0100, L501.3620 ####[facility] [address] [place], [address] Globulin (S) [Mass/Vol] 3.7 g/dL Normal 2.2-4.2 [facility] Comment on above: Performed By: #### L 500.4050, L100.0100, L501.3620 ####[facility] [address] [place], [address] Glucose [Mass/Vol] 98 mg/dL Normal 74-106 [facility] Comment on above: Performed By: #### L 500.4050, L100.0100, L501.3620 ####[facility] [address] [place], [address] Potassium [Moles/Vol] 3.7 mmol/L Normal 3.5-5.1 [facility] Comment on above: Performed By: #### L 500.4050, L100.0100, L501.3620 ####[facility] [address] [place], [address] Sodium [Moles/Vol] 138 mmol/L Normal 136-145 [facility] Comment on above: Performed By: #### L 500.4050, L100.0100, L501.3620 ####[facility] [address] [place], [address] T PROT 7.3 g/dL Normal 6.4-8.2 [facility] Comment on above: Performed By: #### L 500.4050, L100.0100, L501.3620 ####[facility] [address] [place], [address] Urea nitrogen [Mass/Vol] 12 mg/dL Normal 7-18 [facility] Comment on above: Performed By: #### L 500.4050, L100.0100, L501.3620 ####[facility] [address] [place], [address] Determination of fraction of inspired oxygenOrdered By: Ramila Chow on 01-20-2025 Determination of fraction of inspired oxygen 21.0 [facility] Emergency Department Summary on 01-20-2025 Emergency Department Summary Normal [facility] H AND P Exam - Hospitaliston 01-20-2025 H&P Exam - Hospitalist Normal [facility] Hyaline casts LM.LPF (Urine sed) [#/Area]Ordered By: Maris Bland on 01-20-2025 Hyaline casts (Urine sed) [#/Area] 0 /[LPF] 0-5 [facility] Urine sediment hyaline cast count by microscopy (number/low power field) 0-5 SEEN /lpf 0-5 [facility] Influenza virus A and B and SARS-CoV-2 (COVID-19) and Respiratory syncytial virus RNAOrdered By: Maris Bland on 01-20-2025 SARS-CoV-2 (COVID-19) RNA MERYL+probe Ql (Unsp spec) [facility] Ketones Test strip Ql (U)Ord ered By: Maris Bland on 01-20-2025 Ketones Ql (U) Negative Negative [facility] M100.678on 01-20-2025 M100.678 SARS-CoV-2 (COVID 19 ) Negative INFLUENZA A Negative INFLUENZA B Negative RSV PCR Negative Normal [facility] Comment on above: Performed By: #### M 100.678, L400.0001 ####[facility] [address] [place], [place], [id number] Mucus LM Ql (Urine sed)Order ed By: Maris Bland on 01-20-2025 Mucus Ql (Urine sed) 0 SEEN /hpf [facility] Mucus detection in urine sediment by light microscopy 0 SEEN /hpf [facility] Nitrite Test strip Ql (U)Ord ered By: Maris Bland on 01-20-2025 Nitrite Ql (U) Positive High Negative [facility] Urine nitrite test by dipstick Positive High Negative [facility] No Panel InformationOrdered By: Maris Bland on 01-20-2025 [facility] No Panel InformationOrdered By: Ramila Chow on 01-20-2025 MARITA [facility] Not entered [facility] Oxygen (BldV) [Partial press ure]Ordered By: Ramila Chow on 01-20-2025 Venous blood partial pressure of oxygen measurement 48 mmHg High 25-40 [facility] Protein Test strip Ql (U)Ord ered By: Maris Bland on 01-20-2025 Protein Ql (U) Negative Negative [facility] Specific gravity (U) [Rel de nsity]Ordered By: Maris Bland on 01-20-2025 Urine specific gravity measurement 1.010 1.002-1.030 [facility] Spine Cervical without Contr ason 01-20-2025 Spine Cervical without Contras Normal [facility] Squamous epithelial cells de tection in urine sediment by light microscopyOrdered By: Maris Bland on 01-20-2025 Epithelial cells.squamous LM Ql (Urine sed) 0-5 SEEN /hpf 5-10 [facility] Total creatine kinase measur ementOrdered By: Marisjacinta Bland on 01-20-2025 Total creatine kinase measurement 90 U/L 26-192 [facility] Urinalysis, Completeon 01-20 CAST,HYALINE 0-5 SEEN Normal 0-5 [facility] Comment on above: Order Comment: CLEAN CATCH Performed By: #### M 100.678, L400.0001 ####[facility] [address] [place], [address] EPI,SQUAMOUS 0-5 SEEN Normal 5-10 [facility] Comment on above: Order Comment: CLEAN CATCH Performed By: #### M 100.678, L400.0001 ####[facility] [address] [place], [address] BACTERIA 3+ /hpf Normal None Seen [facility] Comment on above: Order Comment: CLEAN CATCH Performed By: #### M 100.678, L400.0001 ####[facility] [address] [place], [address] RBC 0-5 SEEN Normal 0-5 [facility] Comment on above: Order Comment: CLEAN CATCH Performed By: #### M 100.678, L400.0001 ####[facility] [address] [place], [address] WBC 0-5 SEEN Normal 0-5 [facility] Comment on above: Order Comment: CLEAN CATCH Performed By: #### M 100.678, L400.0001 ####[facility] [address] [place], [address] Mucus Ql (Urine sed) 0 SEEN Normal [facility] Comment on above: Order Comment: CLEAN CATCH Performed By: #### M 100.678, L400.0001 ####[facility] [address] [place], [address] Urine Drug Screen (VISTA)on 01-20-2025 AMPHETAMINES Negative Normal <1000 ng/mL [facility] Comment on above: Performed By: #### L 505.5000 ####[facility] [address] [place] [id number] BARBITIURATES Negative Normal < 200 ng/mL [facility] Comment on above: Performed By: #### L 505.5000 ####[facility] [address] [place] [address] BENZODIAZIPINE Negative Normal < 200 ng/mL [facility] Comment on above: Performed By: #### L 505.5000 ####[facility] [address] [place] [address] COCAINE Negative Normal < 300 ng/mL [facility] Comment on above: Performed By: #### L 505.5000 ####[facility] [address] [place] [address] ECSTACY Negative Normal < 500 ng/mL [facility] Comment on above: Performed By: #### L 505.5000 ####[facility] [address] [place] [address] METHADONE Negative Normal < 300 ng/mL [facility] Comment on above: Performed By: #### L 505.5000 ####[facility] [address] [place] [address] OPIATES Negative Normal < 300 ng/mL [facility] Comment on above: Performed By: #### L 505.5000 ####[facility] [address] [place] [address] PCP Negative Normal < 25 ng/mL [facility] Comment on above: Performed By: #### L 505.5000 ####[facility] [address] [place] [address] THC Negative Normal < 50 ng/mL [facility] Comment on above: Performed By: #### L 505.5000 ####[facility] [address] [place], [place], [id number] VISTA UDS PH 5 Normal [facility] Comment on above: Performed By: #### L 505.5000 ####[facility] [address] [place], [place], [id number] Urine amphetamine measuremen tOrdered By: Maris Bland on 01-20-2025 Urine amphetamine measurement Negative < 50 ng/mL [facility] Urine blood detectionOrdered By: Maris Bland on 01-20-2025 Urine blood detection 10 /ul High Negative [facility] Urine clarityOrdered By: Gladis Bland on 01-20-2025 Clarity (U) Clear Clear [facility] Urine color determinationOrd ered By: Maris Bland on 01-20-2025 Color (U) Yellow Yellow [facility] Urine cultureOrdered By: Gladis Bland on 01-20-2025 Bacteria identified Cx Nom (U) Citrobacter freundii Abnormal [facility] Urine culture Citrobacter freundii Abnormal [facility] Urine glucose detectionOrder ed By: Maris Bland on 01-20-2025 Glucose Ql (U) Normal mg/dl Normal [facility] Urine glucose detection Normal mg/dl Normal [facility] Urine leukocyte esterase det ection by dipstickOrdered By: Maris Bland on 01-20-2025 Leukocyte esterase Test strip Ql (U) Negative Negative [facility] Urine pHOrdered By: Maris chahal on 01-20-2025 pH (U) 5.0 [pH] 5.0 - 8.0 [facility] Urine phencyclidine (PCP) de tectionOrdered By: Maris Bland on 01-20-2025 Phencyclidine Ql (U) Negative < 25 ng/mL [facility] Urine sediment bacteria coun t by microscopy (number/high power field)Ordered By: Maris Bland on 01-20-2025 Bacteria LM.HPF (Urine sed) [#/Area] 3 /[HPF] None Seen [facility] Urine specific gravity measu rementOrdered By: Maris Bland on 01-20-2025 Specific gravity (U) [Rel density] 1.010 1.002-1.030 [facility] Urine total bilirubin detect ion by test stripOrdered By: Maris Bland on 01-20-2025 Urine total bilirubin detection by test strip Negative Negative [facility] Urine urobilinogen measureme ntOrdered By: Maris Bland on 01-20-2025 Urobilinogen Ql (U) Normal mg/dl Normal [facility] Venous Blood Gason 5 Blood Gas Type MARITA Normal [facility] Comment on above: Performed By: #### L 9000.0810 ####[facility] [address] [place], [address] CO2 [Moles/Vol] 26 mmol/L Normal 23-33 [facility] Comment on above: Performed By: #### L 8999.0810 ####[facility] [address] [place], [address] FI02 21.0 Normal [facility] Comment on above: Performed By: #### L 9000.0810 ####[facility] [address] [place], [address] HCO3 (Bld) [Moles/Vol] 24 mmol/L Normal 22-26 [facility] Comment on above: Performed By: #### L 900.0810 ####[facility] [address] [place], [address] O2 Delivery Dev Not entered [facility] Comment on above: Performed By: #### L 0.0810 ####[facility] [address] [place], [address] SITE Not entered [facility] Comment on above: Performed By: #### L 0.0810 ####[facility] [address] [place], [address] VBG BE -1 mmol/L Normal -1.0-3.5 [facility] Comment on above: Performed By: #### L 9000.0810 ####[facility] [address] [place], [address] VBG pCO2 42.5 mmHg Normal 41-51 [facility] Comment on above: Performed By: #### L 9000.0810 ####[facility] [address] [place], [address] VBG pH 7.37 Normal 7.32-7.42 [facility] Comment on above: Performed By: #### L 9000.0810 ####[facility] [address] [place], [address] VBG PO2 48 mmHg High 25-40 [facility] Comment on above: Performed By: #### L 9000.0810 ####[facility] [address] [place], [address] VBG SO2 82 High 50-70 [facility] Comment on above: Performed By: #### L 9000.0810 ####[facility] [address] [place], [address] Venous blood ammonia measure mentOrdered By: Maris Bland on 01-20-2025 Ammonia (P) [Moles/Vol] 17.0 umol/L [facility] Venous blood ammonia measurement 17.0 umol/L [facility] Venous blood base excess may surementOrdered By: Ramila Chow on 01-20-2025 Base excess Calc (BldV) [Moles/Vol] -1 mmol/L -1.0-3.5 [facility] Venous blood bicarbonate may surementOrdered By: Ramila Chow on 01-20-2025 HCO3 (Bld) [Moles/Vol] 24 mmol/L [facility] Venous blood bicarbonate measurement 24 mmol/L [facility] Venous blood oxygen saturati on measurementOrdered By: Ramial Chow on 01-20-2025 Venous blood oxygen saturation measurement 82 % High 50-70 [facility] Venous blood pH measurementO rdered By: Ramila Chow on 01-20-2025 pH (BldV) 7.37 [pH] 7.32-7.42 [facility] Venous blood partial pressur e of carbon dioxide measurementOrdered By: Ramila Chow on 01-20-2025 CO2 (BldV) [Partial pressure] 42.5 mm[Hg] 41-51 [facility] Venous blood partial pressur e of oxygen measurementOrdered By: Ramila Chow on 01-20-2025 Oxygen (BldV) [Partial pressure] 48 mm[Hg] High 25-40 [facility] White blood cell countOrdere d By: Mrais Bland on 01-20-2025 White blood cell count 0-5 SEEN /hpf 0-5 [facility] White blood cell count 0-5 SEEN /hpf 5-10 [facility] pH (BldV)Ordered By: Ramila goncalves on 01-20-2025 Venous blood pH measurement 7.37 7.32-7.42 [facility] pH (U)Ordered By: Maris souza on 01-20-2025 Urine pH 5.0 5.0 - 8.0 [facility] Internal Medicine Office Vis iton 01-05-2025 Internal Medicine Office Visit Normal [facility] No Panel InformationOrdered By: Ryan Leyva on 01-05-2025 6.9 % High 4.2-6.3 [facility] Brain W/WO Contraston 2024 Brain W/WO Contrast Normal [facility] Gastroenterology Visit Repor ton 11-16-2024 Gastroenterology Visit Report Normal [facility] EGD Reporton 10-26-2024 EGD Report Normal [facility] MR/POSTOP.ANEon 10-26-2024 MR/POSTOP.ANE Normal [facility] MR/YCLQZJMY1rz 10-26-2024 MR/POSTOPAN2 Normal [facility] CBC W/Diff, Automatedon 11- Absolute Lymph 3.62 X10 3/uL Normal 0.83-4.51 [facility] Comment on above: Performed By: #### L 501.6710, L100.0100, L500.4050, L300.3900 ####[facility] [address] [place], [address] Absolute Neut 5.3 X10 3/uL Normal 2.0-7.7 [facility] Comment on above: Performed By: #### L 501.6710, L100.0100, L500.4050, L300.3900 ####[facility] [address] [place], [address] Basophils/100 WBC (Bld) 1.0 % Normal 0-1 [facility] Comment on above: Performed By: #### L 501.6710, L100.0100, L500.4050, L300.3900 ####[facility] [address] [place], [address] Eosinophils/100 WBC (Bld) 2.6 % Normal 0-5 [facility] Comment on above: Performed By: #### L 501.6710, L100.0100, L500.4050, L300.3900 ####[facility] [address] [place], [address] Erythrocyte distribution width (RBC) [Ratio] 12.2 % Normal 11.6-14.6 [facility] Comment on above: Performed By: #### L 501.6710, L100.0100, L500.4050, L300.3900 ####[facility] [address] [place], [address] Hematocrit (Bld) [Volume fraction] 47.0 % Normal 37-47 [facility] Comment on above: Performed By: #### L 501.6710, L100.0100, L500.4050, L300.3900 ####[facility] [address] [place], [address] Hemoglobin (Bld) [Mass/Vol] 15.5 g/dL High 12.0-15.0 [facility] Comment on above: Performed By: #### L 501.6710, L100.0100, L500.4050, L300.3900 ####[facility] [address] [place], [address] IG% 0.300 Normal 0.0-0.9 [facility] Comment on above: Result Comment: IG% - Immature Granulocytes (promyelocytes, myelocytes andmetamyelocytes) > 1% indicates that a LEFT SHIFT is Present. Performed By: #### L 501.6710, L100.0100, L500.4050, L300.3900 ####[facility] [address] [place], [address] Lymphocytes/100 WBC (Bld) 36.9 % Normal 19-41 [facility] Comment on above: Performed By: #### L 501.6710, L100.0100, L500.4050, L300.3900 ####[facility] [address] [place], [address] MCH (RBC) [Entitic mass] 31.4 pg Normal 27.0-32.0 [facility] Comment on above: Performed By: #### L 501.6710, L100.0100, L500.4050, L300.3900 ####[facility] [address] [place], [address] MCHC (RBC) [Mass/Vol] 33.0 g/dL Normal 32-36 [facility] Comment on above: Performed By: #### L 501.6710, L100.0100, L500.4050, L300.3900 ####[facility] [address] [place], [address] MCV (RBC) [Entitic vol] 95.1 fL Normal 81-99 [facility] Comment on above: Performed By: #### L 501.6710, L100.0100, L500.4050, L300.3900 ####[facility] [address] [place], [address] Monocytes/100 WBC (Bld) 5.1 % Normal 0-10 [facility] Comment on above: Performed By: #### L 501.6710, L100.0100, L500.4050, L300.3900 ####[facility] [address] [place], [address] Neutrophils/100 WBC (Bld) 54.1 % Normal 47-70 [facility] Comment on above: Performed By: #### L 501.6710, L100.0100, L500.4050, L300.3900 ####[facility] [address] [place], [address] Nucleated RBC (Bld) [#/Vol] 0 10*3/uL Normal 0-5 [facility] Comment on above: Performed By: #### L 501.6710, L100.0100, L500.4050, L300.3900 ####[facility] [address] [place], [address] Platelet mean volume (Bld) [Entitic vol] 9.0 fL Normal 6.2-12.0 [facility] Comment on above: Performed By: #### L 501.6710, L100.0100, L500.4050, L300.3900 ####[facility] [address] [place], [address] Platelets (Bld) [#/Vol] 331 10*3/uL Normal 150-450 [facility] Comment on above: Performed By: #### L 501.6710, L100.0100, L500.4050, L300.3900 ####[facility] [address] [place], [address] RBC (Bld) [#/Vol] 4.94 10*6/uL Normal 4.2-5.4 [facility] Comment on above: Performed By: #### L 501.6710, L100.0100, L500.4050, L300.3900 ####[facility] [address] [place], [address] RDW SD 43.1 fl Normal 35.1-43.9 [facility] Comment on above: Performed By: #### L 501.6710, L100.0100, L500.4050, L300.3900 ####[facility] [address] [place], [address] WBC (Bld) [#/Vol] 9.8 10*3/uL Normal 4.4-11.0 [facility] Comment on above: Performed By: #### L 501.6710, L100.0100, L500.4050, L300.3900 ####[facility] [address] [place], [address] CRPon 10-21-2024 C-REACTIVE PROT < 2.90 Normal 0.0-3.0 [facility] [facility] Comment on above: Result Comment: C-Re active Protein (CRP) provides useful information for thediagnosis, therapy and monitoring of inflammatory processesand associated diseases. For the evaluation of Relative Riskfor Cardiovascular Disease, a High Sensitivity CRP (HSCRP)should be ordered. Performed By: #### L 501.6710, L100.0100, L500.4050, L300.3900 ####[facility] [address] [place], [address] Comprehensive Metabolic Prof ilon 10-21-2024 Albumin [Mass/Vol] 3.6 g/dL Normal 3.2-5.0 [facility] Comment on above: Performed By: #### L 501.6710, L100.0100, L500.4050, L300.3900 ####[facility] [address] [place], [address] Albumin/Globulin [Mass ratio] 0.8 {ratio} Low 0.9-2.4 [facility] Comment on above: Performed By: #### L 501.6710, L100.0100, L500.4050, L300.3900 ####[facility] [address] [place], [address] ALK P 100 U/L Normal 45-117 [facility] Comment on above: Performed By: #### L 501.6710, L100.0100, L500.4050, L300.3900 ####[facility] [address] [place], [address] ALT [Catalytic activity/Vol] 29 U/L Normal 13-56 [facility] Comment on above: Performed By: #### L 501.6710, L100.0100, L500.4050, L300.3900 ####[facility] [address] [place], [address] AST [Catalytic activity/Vol] 22 U/L Normal 15-37 [facility] Comment on above: Performed By: #### L 501.6710, L100.0100, L500.4050, L300.3900 ####[facility] [address] [place], [address] Bilirubin [Mass/Vol] 1.10 mg/dL High 0.20-1.00 [facility] Comment on above: Result Comment: For patients on eltrombopag therapy, use of Dimension [place] TBIL is not recommended. Performed By: #### L 501.6710, L100.0100, L500.4050, L300.3900 ####[facility] [address] [place], [address] BUN/CRE 14.9 RATIO Normal 10-20 [facility] Comment on above: Performed By: #### L 501.6710, L100.0100, L500.4050, L300.3900 ####[facility] [address] [place], [address] CA,Total 8.9 mg/dL Normal 8.5-10.1 [facility] Comment on above: Performed By: #### L 501.6710, L100.0100, L500.4050, L300.3900 ####[facility] [address] [place], [address] Chloride [Moles/Vol] 105 mmol/L Normal 98-107 [facility] Comment on above: Performed By: #### L 501.6710, L100.0100, L500.4050, L300.3900 ####[facility] [address] [place], [address] CO2 [Moles/Vol] 24.0 mmol/L Normal 21.0-32.0 [facility] Comment on above: Performed By: #### L 501.6710, L100.0100, L500.4050, L300.3900 ####[facility] [address] [place], [address] Creatinine [Mass/Vol] 0.94 mg/dL Normal 0.55-1.02 [facility] Comment on above: Result Comment: The validity of the calculated GFR GFRAA in patients over70 years has not been determined. Clinical correlation isessential. Performed By: #### L 501.6710, L100.0100, L500.4050, L300.3900 ####[facility] [address] [place], [address] EST GFR - AA 77 mL/min Normal >60 [facility] Comment on above: Result Comment: Afri can Ukrainian GFR Calc Performed By: #### L 501.6710, L100.0100, L500.4050, L300.3900 ####[facility] [address] [place], [address] GAP 8 Normal 5-15 [facility] Comment on above: Performed By: #### L 501.6710, L100.0100, L500.4050, L300.3900 ####[facility] [address] [place], [address] GFR/1.73 sq M.predicted among non-blacks MDRD (S/P/Bld) [Vol rate/Area] 64 mL/min/{1.73_m2} Normal >60 [facility] Comment on above: Result Comment: Non- GFR Calc Performed By: #### L 501.6710, L100.0100, L500.4050, L300.3900 ####[facility] [address] [place], [address] Globulin (S) [Mass/Vol] 4.4 g/dL High 2.2-4.2 [facility] Comment on above: Performed By: #### L 501.6710, L100.0100, L500.4050, L300.3900 ####[facility] [address] [place], [address] Glucose [Mass/Vol] 142 mg/dL High 74-106 [facility] Comment on above: Result Comment: Fast ing Glucose result greater than or equal to 126 mg/dLsuggests DIABETES MELLITUS per A.D.A. criteria. Performed By: #### L 501.6710, L100.0100, L500.4050, L300.3900 ####[facility] [address] [place], [address] Potassium [Moles/Vol] 4.0 mmol/L Normal 3.5-5.1 [facility] Comment on above: Performed By: #### L 501.6710, L100.0100, L500.4050, L300.3900 ####[facility] [address] [place], [address] Sodium [Moles/Vol] 137 mmol/L Normal 136-145 [facility] Comment on above: Performed By: #### L 501.6710, L100.0100, L500.4050, L300.3900 ####[facility] [address] [place], [address] T PROT 8.0 g/dL Normal 6.4-8.2 [facility] Comment on above: Performed By: #### L 501.6710, L100.0100, L500.4050, L300.3900 ####[facility] [address] [place], [address] Urea nitrogen [Mass/Vol] 14 mg/dL Normal 7-18 [facility] Comment on above: Performed By: #### L 501.6710, L100.0100, L500.4050, L300.3900 ####[facility] [address] [place], [address] Prothrombin Time w/INRon INR Coag (PPP) [Relative time] 1.0 {INR} Normal [facility] Comment on above: Performed By: #### L 501.6710, L100.0100, L500.4050, L300.3900 ####[facility] [address] [place], [address] PT Coag (PPP) [Time] 13.6 s Normal 11.7-14.9 [facility] Comment on above: Performed By: #### L 501.6710, L100.0100, L500.4050, L300.3900 ####[facility] [address] [place], [address] Neurology Visit Reporton Neurology Visit Report Normal [facility] Office Visit Reporton 2023 Office Visit Report Normal [facility] Internal Medicine Office Vis iton 10-04-2024 Internal Medicine Office Visit Normal [facility] Internal Medicine Office Vis iton 07-29-2024 Internal Medicine Office Visit Normal [facility] M100.678on 07-29-2024 M100.678 Normal [facility] Comment on above: Performed By: #### M 100.678 ####[facility] [address] [place], [address] Gastroenterology Visit Repor ton 07-26-2024 Gastroenterology Visit Report Normal [facility] ABD Limited w/ Elastographyo n 07-16-2024 ABD Limited w/ Elastography Normal [facility] CBC W/Diff, Automatedon Absolute Lymph 3.15 X10 3/uL Normal 0.83-4.51 [facility] Comment on above: Order Comment: DR. Marcy AHN ORDERED CMP.A1.LU ORDERED VITD, CRP. INR, CBCD, LIPID,CMP Performed By: #### L 300.3900, L506.1000, L501.6710, L100.0100 ####[facility] [address] [place], [address] Absolute Neut 4.8 X10 3/uL Normal 2.0-7.7 [facility] Comment on above: Order Comment: DR. Marcy AHN ORDERED CMP.A1.LU ORDERED VITD, CRP. INR, CBCD, LIPID,CMP Performed By: #### L 300.3900, L506.1000, L501.6710, L100.0100 ####[facility] [address] [place], [address] Basophils/100 WBC (Bld) 1.0 % Normal 0-1 [facility] Comment on above: Order Comment: DR. Marcy AHN ORDERED CMP.A1.LU ORDERED VITD, CRP. INR, CBCD, LIPID,CMP Performed By: #### L 300.3900, L506.1000, L501.6710, L100.0100 ####[facility] [address] [place], [address] Eosinophils/100 WBC (Bld) 2.9 % Normal 0-5 [facility] Comment on above: Order Comment: DR. Marcy AHN ORDERED CMP.A1.LU ORDERED VITD, CRP. INR, CBCD, LIPID,CMP Performed By: #### L 300.3900, L506.1000, L501.6710, L100.0100 ####[facility] [address] [place], [address] Erythrocyte distribution width (RBC) [Ratio] 12.5 % Normal 11.6-14.6 [facility] Comment on above: Order Comment: DR. Marcy AHN ORDERED CMP.A1.LU ORDERED VITD, CRP. INR, CBCD, LIPID,CMP Performed By: #### L 300.3900, L506.1000, L501.6710, L100.0100 ####[facility] [address] [place], [address] Hematocrit (Bld) [Volume fraction] 40.8 % Normal 37-47 [facility] Comment on above: Order Comment: DR. Marcy AHN ORDERED CMP.A1.LU ORDERED VITD, CRP. INR, CBCD, LIPID,CMP Performed By: #### L 300.3900, L506.1000, L501.6710, L100.0100 ####[facility] [address] [place], [address] Hemoglobin (Bld) [Mass/Vol] 13.4 g/dL Normal 12.0-15.0 [facility] Comment on above: Order Comment: DR. Marcy AHN ORDERED CMP.A1.LU ORDERED VITD, CRP. INR, CBCD, LIPID,CMP Performed By: #### L 300.3900, L506.1000, L501.6710, L100.0100 ####[facility] [address] [place], [address] IG% 0.300 Normal 0.0-0.9 [facility] Comment on above: Order Comment: DR. Marcy AHN ORDERED CMP.A1.LU ORDERED VITD, CRP. INR, CBCD, LIPID,CMP Result Comment: IG% - Immature Granulocytes (promyelocytes, myelocytes andmetamyelocytes) > 1% indicates that a LEFT SHIFT is Present. Performed By: #### L 300.3900, L506.1000, L501.6710, L100.0100 ####[facility] [address] [place], [address] Lymphocytes/100 WBC (Bld) 35.0 % Normal 19-41 [facility] Comment on above: Order Comment: DR. Marcy AHN ORDERED CMP.A1.LU ORDERED VITD, CRP. INR, CBCD, LIPID,CMP Performed By: #### L 300.3900, L506.1000, L501.6710, L100.0100 ####[facility] [address] [place], [address] MCH (RBC) [Entitic mass] 30.4 pg Normal 27.0-32.0 [facility] Comment on above: Order Comment: DR. Marcy AHN ORDERED CMP.A1.LU ORDERED VITD, CRP. INR, CBCD, LIPID,CMP Performed By: #### L 300.3900, L506.1000, L501.6710, L100.0100 ####[facility] [address] [place], [address] MCHC (RBC) [Mass/Vol] 32.8 g/dL Normal 32-36 [facility] Comment on above: Order Comment: DR. Marcy AHN ORDERED CMP.A1.LU ORDERED VITD, CRP. INR, CBCD, LIPID,CMP Performed By: #### L 300.3900, L506.1000, L501.6710, L100.0100 ####[facility] [address] [place], [address] MCV (RBC) [Entitic vol] 92.5 fL Normal 81-99 [facility] Comment on above: Order Comment: DR. Marcy AHN ORDERED CMP.A1.LU ORDERED VITD, CRP. INR, CBCD, LIPID,CMP Performed By: #### L 300.3900, L506.1000, L501.6710, L100.0100 ####[facility] [address] [place], [address] Monocytes/100 WBC (Bld) 7.3 % Normal 0-10 [facility] Comment on above: Order Comment: DR. Marcy AHN ORDERED CMP.A1.LU ORDERED VITD, CRP. INR, CBCD, LIPID,CMP Performed By: #### L 300.3900, L506.1000, L501.6710, L100.0100 ####[facility] [address] [facility] [place], [address] Neutrophils/100 WBC (Bld) 53.5 % Normal 47-70 [facility] Comment on above: Order Comment: DR. Marcy AHN ORDERED CMP.A1.LU ORDERED VITD, CRP. INR, CBCD, LIPID,CMP Performed By: #### L 300.3900, L506.1000, L501.6710, L100.0100 ####[facility] [address] [facility] [place], [address] Nucleated RBC (Bld) [#/Vol] 0 10*3/uL Normal 0-5 [facility] Comment on above: Order Comment: DR. Marcy AHN ORDERED CMP.A1.LU ORDERED VITD, CRP. INR, CBCD, LIPID,CMP Performed By: #### L 300.3900, L506.1000, L501.6710, L100.0100 ####[facility] [address] [facility] [place], [address] Platelet mean volume (Bld) [Entitic vol] 9.7 fL Normal 6.2-12.0 [facility] Comment on above: Order Comment: DR. Marcy AHN ORDERED CMP.A1.LU ORDERED VITD, CRP. INR, CBCD, LIPID,CMP Performed By: #### L 300.3900, L506.1000, L501.6710, L100.0100 ####[facility] [address] [place], [address] Platelets (Bld) [#/Vol] 225 10*3/uL Normal 150-450 [facility] Comment on above: Order Comment: DR. Marcy AHN ORDERED CMP.A1.LU ORDERED VITD, CRP. INR, CBCD, LIPID,CMP Performed By: #### L 300.3900, L506.1000, L501.6710, L100.0100 ####[facility] [address] [place], [address] RBC (Bld) [#/Vol] 4.41 10*6/uL Normal 4.2-5.4 [facility] Comment on above: Order Comment: DR. Marcy AHN ORDERED CMP.A1.LU ORDERED VITD, CRP. INR, CBCD, LIPID,CMP Performed By: #### L 300.3900, L506.1000, L501.6710, L100.0100 ####[facility] [address] [place], [address] RDW SD 42.1 fl Normal 35.1-43.9 [facility] Comment on above: Order Comment: DR. Marcy AHN ORDERED CMP.A1.LU ORDERED VITD, CRP. INR, CBCD, LIPID,CMP Performed By: #### L 300.3900, L506.1000, L501.6710, L100.0100 ####[facility] [address] [place], [address] WBC (Bld) [#/Vol] 9.0 10*3/uL Normal 4.4-11.0 [facility] Comment on above: Order Comment: DR. Marcy AHN ORDERED CMP.A1.LU ORDERED VITD, CRP. INR, CBCD, LIPID,CMP Performed By: #### L 300.3900, L506.1000, L501.6710, L100.0100 ####[facility] [address] [place], [address] CRPon 07-08-2024 C-REACTIVE PROT < 2.90 Normal 0.0-3.0 [facility] Comment on above: Order Comment: DR. Marcy AHN ORDERED CMP.A1.LU ORDERED VITD, CRP. INR, CBCD, LIPID,CMP Result Comment: C-Re active Protein (CRP) provides useful information for thediagnosis, therapy and monitoring of inflammatory processesand associated diseases. For the evaluation of Relative Riskfor Cardiovascular Disease, a High Sensitivity CRP (HSCRP)should be ordered. Performed By: #### L 300.3900, L506.1000, L501.6710, L100.0100 ####[facility] [address] [place], [address] Comprehensive Metabolic Prof ilon 07-08-2024 Albumin [Mass/Vol] 3.2 g/dL Normal 3.2-5.0 [facility] Comment on above: Order Comment: DR. Marcy AHN ORDERED CMP.A1.LU ORDERED VITD, CRP. INR, CBCD, LIPID,CMP Performed By: #### L 501.9985, L500.4050, L500.4100 ####[facility] [address] [place], [address] Albumin/Globulin [Mass ratio] 0.8 {ratio} Low 0.9-2.4 [facility] Comment on above: Order Comment: DR. Marcy AHN ORDERED CMP.A1.LU ORDERED VITD, CRP. INR, CBCD, LIPID,CMP Performed By: #### L 501.9985, L500.4050, L500.4100 ####[facility] [address] [place], [address] ALK P 55 U/L Normal 45-117 [facility] Comment on above: Order Comment: DR. Marcy AHN ORDERED CMP.A1.LU ORDERED VITD, CRP. INR, CBCD, LIPID,CMP Performed By: #### L 501.9985, L500.4050, L500.4100 ####[facility] [address] [place], [address] ALT [Catalytic activity/Vol] 30 U/L Normal 13-56 [facility] Comment on above: Order Comment: DR. Marcy AHN ORDERED CMP.A1.LU ORDERED VITD, CRP. INR, CBCD, LIPID,CMP Performed By: #### L 501.9985, L500.4050, L500.4100 ####[facility] [address] [place], [address] AST [Catalytic activity/Vol] 26 U/L Normal 15-37 [facility] Comment on above: Order Comment: DR. Marcy AHN ORDERED CMP.A1.LU ORDERED VITD, CRP. INR, CBCD, LIPID,CMP Performed By: #### L 501.9985, L500.4050, L500.4100 ####[facility] [address] [place], [address] Bilirubin [Mass/Vol] 1.20 mg/dL High 0.20-1.00 [facility] Comment on above: Order Comment: DR. Marcy AHN ORDERED CMP.A1.LU ORDERED VITD, CRP. INR, CBCD, LIPID,CMP Result Comment: For patients on eltrombopag therapy, use of Dimension [place] TBIL is not recommended. Performed By: #### L 501.9985, L500.4050, L500.4100 ####[facility] [address] [place], [address] BUN/CRE 10.8 RATIO Normal 10-20 [facility] Comment on above: Order Comment: DR. Marcy AHN ORDERED CMP.A1.LU ORDERED VITD, CRP. INR, CBCD, LIPID,CMP Performed By: #### L 501.9985, L500.4050, L500.4100 ####[facility] [address] [place], [address] CA,Total 8.7 mg/dL Normal 8.5-10.1 [facility] Comment on above: Order Comment: DR. Marcy AHN ORDERED CMP.A1.LU ORDERED VITD, CRP. INR, CBCD, LIPID,CMP Performed By: #### L 501.9985, L500.4050, L500.4100 ####[facility] [address] [place], [address] Chloride [Moles/Vol] 110 mmol/L High 98-107 [facility] Comment on above: Order Comment: DR. Marcy AHN ORDERED CMP.A1.LU ORDERED VITD, CRP. INR, CBCD, LIPID,CMP Performed By: #### L 501.9985, L500.4050, L500.4100 ####[facility] [address] [place], [address] CO2 [Moles/Vol] 24.0 mmol/L Normal 21.0-32.0 [facility] Comment on above: Order Comment: DR. Marcy AHN ORDERED CMP.A1.LU ORDERED VITD, CRP. INR, CBCD, LIPID,CMP Performed By: #### L 501.9985, L500.4050, L500.4100 ####[facility] [address] [place], [address] Creatinine [Mass/Vol] 0.83 mg/dL Normal 0.55-1.02 [facility] Comment on above: Order Comment: DR. Marcy AHN ORDERED CMP.A1.LU ORDERED VITD, CRP. INR, CBCD, LIPID,CMP Result Comment: The validity of the calculated GFR GFRAA in patients over70 years has not been determined. Clinical correlation isessential. Performed By: #### L 501.9985, L500.4050, L500.4100 ####[facility] [address] [place], [address] EST GFR - AA 88 mL/min Normal >60 [facility] Comment on above: Order Comment: DR. Marcy AHN ORDERED CMP.A1.LU ORDERED VITD, CRP. INR, CBCD, LIPID,CMP Result Comment: Afri can Ukrainian GFR Calc Performed By: #### L 501.9985, L500.4050, L500.4100 ####[facility] [address] [place], [address] GAP 7 Normal 5-15 [facility] Comment on above: Order Comment: DR. Marcy AHN ORDERED CMP.A1.LU ORDERED VITD, CRP. INR, CBCD, LIPID,CMP Performed By: #### L 501.9985, L500.4050, L500.4100 ####[facility] [address] [place], [address] GFR/1.73 sq M.predicted among non-blacks MDRD (S/P/Bld) [Vol rate/Area] 73 mL/min/{1.73_m2} Normal >60 [facility] Comment on above: Order Comment: DR. Marcy AHN ORDERED CMP.A1.LU ORDERED VITD, CRP. INR, CBCD, LIPID,CMP Result Comment: Non- GFR Calc Performed By: #### L 501.9985, L500.4050, L500.4100 ####[facility] [address] [place], [address] Globulin (S) [Mass/Vol] 3.9 g/dL Normal 2.2-4.2 [facility] Comment on above: Order Comment: DR. Marcy AHN ORDERED CMP.A1.LU ORDERED VITD, CRP. INR, CBCD, LIPID,CMP Performed By: #### L 501.9985, L500.4050, L500.4100 ####[facility] [address] [place], [address] Glucose [Mass/Vol] 124 mg/dL High 74-106 [facility] Comment on above: Order Comment: DR. Marcy AHN ORDERED CMP.A1.LU ORDERED VITD, CRP. INR, CBCD, LIPID,CMP Result Comment: Fast ing Glucose result from 100 to 125 mg/dLsuggests IMPAIRED HOMEOSTASIS per A.D.A. criteria. Performed By: #### L 501.9985, L500.4050, L500.4100 ####[facility] [address] [place], [address] Potassium [Moles/Vol] 3.7 mmol/L Normal 3.5-5.1 [facility] Comment on above: Order Comment: DR. Marcy AHN ORDERED CMP.A1.LU ORDERED VITD, CRP. INR, CBCD, LIPID,CMP Performed By: #### L 501.9985, L500.4050, L500.4100 ####[facility] [address] [place], [address] Sodium [Moles/Vol] 141 mmol/L Normal 136-145 [facility] Comment on above: Order Comment: DR. Marcy AHN ORDERED CMP.A1.LU ORDERED VITD, CRP. INR, CBCD, LIPID,CMP Performed By: #### L 501.9985, L500.4050, L500.4100 ####[facility] [address] [place], [address] T PROT 7.1 g/dL Normal 6.4-8.2 [facility] Comment on above: Order Comment: DR. Marcy AHN ORDERED CMP.A1.LU ORDERED VITD, CRP. INR, CBCD, LIPID,CMP Performed By: #### L 501.9985, L500.4050, L500.4100 ####[facility] [address] [place], [address] Urea nitrogen [Mass/Vol] 9 mg/dL Normal 7-18 [facility] Comment on above: Order Comment: DR. Marcy AHN ORDERED CMP.A1.LU ORDERED VITD, CRP. INR, CBCD, LIPID,CMP Performed By: #### L 501.9985, L500.4050, L500.4100 ####[facility] [address] [place], [address] HIP, UNI W/ Pelvis 2-3 Views on 07-08-2024 HIP, UNI W/ Pelvis 2-3 Views Normal [facility] Hemoglobin A1con 07-08-2024 HbA1c (Bld) [Mass fraction] 6.6 % High 3.8-5.6 [facility] Comment on above: Order Comment: DR. Marcy AHN ORDERED CMP.A1.LU ORDERED VITD, CRP. INR, CBCD, LIPID,CMP Result Comment: Norm al < 5.7 % Prediabetic 5.7 - 6.4 % Diabetic >or= 6.5 % Please note range changes. Performed By: #### L 501.9985, L500.4050, L500.4100 ####[facility] [address] [place], [address] L/S Spine Min 4 Viewson L/S Spine Min 4 Views Normal [facility] Lipid Profileon 07-08-2024 Cholesterol [Mass/Vol] 111 mg/dL Normal 200 [facility] Comment on above: Order Comment: DR. Marcy AHN ORDERED CMP.A1.LU ORDERED VITD, CRP. INR, CBCD, LIPID,CMP Result Comment: <200 mg/dL Desirable 200-240 mg/dL Borderline >240 mg/dL High Risk Performed By: #### L 501.9985, L500.4050, L500.4100 ####[facility] [facility] [id number] [place], [address] Cholesterol in HDL [Mass/Vol] 36 mg/dL Low [facility] Comment on above: Order Comment: DR. Marcy AHN ORDERED CMP.A1.LU ORDERED VITD, CRP. INR, CBCD, LIPID,CMP Result Comment: The drugs N-Acetylcysteine and Metamizole may falselydepress this assay. Reference Range HDL <40 mg/dL Low HDL Cholesterol HDL >or= 60 mg/dL High HDL Cholesterol Performed By: #### L 501.9985, L500.4050, L500.4100 ####[facility] [id number] [place], [address] Cholesterol in LDL [Mass/Vol] 33 mg/dL Normal 0-130 [facility] Comment on above: Order Comment: DR. Marcy AHN ORDERED CMP.A1.LU ORDERED VITD, CRP. INR, CBCD, LIPID,CMP Performed By: #### L 501.9985, L500.4050, L500.4100 ####[facility] [address] [place], [address] Cholesterol in VLDL [Mass/Vol] 42 mg/dL High 5-40 [facility] Comment on above: Order Comment: DR. Marcy AHN ORDERED CMP.A1.LU ORDERED VITD, CRP. INR, CBCD, LIPID,CMP Performed By: #### L 501.9985, L500.4050, L500.4100 ####[facility] [address] [place], [address] Triglyceride [Mass/Vol] 209 mg/dL High [facility] Comment on above: Order Comment: DR. Marcy AHN ORDERED CMP.A1.LU ORDERED VITD, CRP. INR, CBCD, LIPID,CMP Result Comment: The drugs N-Acetylcysteine and Metamizole may falselydepress this assay.Serum Triglycerides Reference Interval Normal <150 mg/dL Borderline high 150 - 199 mg/dL High 200 - 499 mg/dL Very High > or = 500 mg/dL Performed By: #### L 501.9985, L500.4050, L500.4100 ####[facility] [address] [place], [address] Prothrombin Time w/INRon INR Coag (PPP) [Relative time] 0.9 {INR} Normal [facility] Comment on above: Order Comment: DR. Marcy AHN ORDERED CMP.A1.LU ORDERED VITD, CRP. INR, CBCD, LIPID,CMP Performed By: #### L 300.3900, L506.1000, L501.6710, L100.0100 ####[facility] [address] [place], [address] PT Coag (PPP) [Time] 12.6 s Normal 11.7-14.9 [facility] Comment on above: Order Comment: DR. Marcy AHN ORDERED CMP.A1.LU ORDERED VITD, CRP. INR, CBCD, LIPID,CMP Performed By: #### L 300.3900, L506.1000, L501.6710, L100.0100 ####[facility] [address] [place], [address] SCRN MAMM (CAD)W/LIBERTY BILATo n 07-08-2024 SCRN MAMM (CAD)W/LIBERTY BILAT Normal [facility] Vitamin D,25 Hydroxyon 07-08 Vitamin D 25-OH 67.2 ng/mL Normal [facility] Comment on above: Order Comment: DR. Marcy AHN ORDERED CMP.A1.LU ORDERED VITD, CRP. INR, CBCD, LIPID,CMP Result Comment: Paige min D 25(OH) Status Range Deficiency <20 ng/mL (50nmol/L) Insufficiency 20 - 30 ng/mL (50 - 75 nmol/L) Sufficiency 30 - 100 ng/mL (75 - 250 nmol/L) Toxicity >100 ng/mL (>250 nmol/L) Performed By: #### L 300.3900, L506.1000, L501.6710, L100.0100 ####[facility] [id number] [place], [address] Internal Medicine Office Vis iton 06-17-2024 Internal Medicine Office Visit Normal [facility] Basophil percentageOrdered B y: Ryan Leyva on 04-06-2024 Basophil percentage 90 mg/dL 74-106 [facility] Basophil percentage 135 mmol/L 136-145 [facility] Basophil percentage 3.8 mmol/L 3.5-5.1 [facility] Basophil percentage 103 mmol/L 98-107 [facility] No Panel InformationOrdered By: Ryan Leyva on 04-06-2024 72 mL/min >60 [facility] 87 mL/min >60 [facility] 17.8 RATIO 10-20 [facility] 28.0 mmol/L 21.0-32.0 [facility] Serum or plasma calcium shimon urement (mass/volume)Ordered By: Ryan Leyva on 04-06-2024 Calcium [Mass/Vol] 9.4 mg/dL 8.5-10.1 [facility] Serum or plasma creatinine m easurement (mass/volume)Ordered By: Ryan Leyva on 04-06-2024 Creatinine [Mass/Vol] 0.84 mg/dL 0.55-1.02 [facility] Serum or plasma urea nitroge n measurement (mass/volume)Ordered By: Ryan Leyva on 04-06-2024 Urea nitrogen [Mass/Vol] 15 mg/dL 7-18 [facility] Thin prep Papanicolaou smear with manual screeningOrdered By: Ryan Leyva on 04-06-2024 Thin prep Papanicolaou smear with manual screening 4 5-15 [facility] Basophil percentageOrdered B y: Ryan Leyva on 03-24-2024 Basophil percentage 102 mg/dL 74-106 [facility] Basophil percentage 133 mmol/L 136-145 [facility] Basophil percentage 3.2 mmol/L 3.5-5.1 [facility] Basophil percentage 97 mmol/L 98-107 [facility] No Panel InformationOrdered By: Ryan Leyva on 03-24-2024 71 mL/min >60 [facility] 86 mL/min >60 [facility] 11.8 RATIO 10-20 [facility] 27.0 mmol/L 21.0-32.0 [facility] Serum or plasma calcium shimon urement (mass/volume)Ordered By: Ryan Leyva on 03-24-2024 Calcium [Mass/Vol] 9.6 mg/dL 8.5-10.1 [facility] Serum or plasma creatinine m easurement (mass/volume)Ordered By: Ryan Leyva on 03-24-2024 Creatinine [Mass/Vol] 0.85 mg/dL 0.55-1.02 [facility] Serum or plasma urea nitroge n measurement (mass/volume)Ordered By: estrellitatylersburgedel Leyva on 03-24-2024 Urea nitrogen [Mass/Vol] 10 mg/dL 7-18 [facility] Thin prep Papanicolaou smear with manual screeningOrdered By: [facility] on 03-24-2024 Thin prep Papanicolaou smear with manual screening 9 5-15 [facility] Whole blood hemoglobin A1c/t otal hemoglobin ratio (mass fraction)Ordered By: [facility] Leyva on 03-24-2024 HbA1c (Bld) [Mass fraction] 5.6 % 3.8-5.6 [facility] Absolute lymphocyte countOrd ered By: Leigh Sales on 01-21-2024 Lymphocytes Auto (Unsp spec) [#/Vol] 3.48 10*3/uL 0.83-4.51 [facility] Alternaria alternata IgE ser umOrdered By: Leigh Sales on 01-21-2024 A. alternata IgE Qn (S) <0.10 kU/L Class 0 [facility] Automated lymphocyte count a s percentage of total leukocytesOrdered By: Leigh Sales on 01-21-2024 Lymphocytes/100 WBC Auto (Unsp spec) 37.9 % 19-41 [facility] Basophil percentageOrdered B y: Leigh Sales on 01-21-2024 Basophil percentage 13.9 g/dL 12.0-15.0 [facility] Basophils (Bld) [#/Vol] 9.2 10*3/uL 4.4-11.0 [facility] Basophils (Bld) [#/Vol] 4.6 10*3/uL 2.0-7.7 [facility] Basophils/100 WBC (Bld) 50.6 % 47-70 [facility] Basophils/100 WBC (Bld) 7.3 % 0-10 [facility] Basophils/100 WBC (Bld) 2.9 % 0-5 [facility] Basophils/100 WBC (Bld) 1.0 % 0-1 [facility] Basophil percentageOrdered B y: Cristian Perales on 01-21-2024 Basophil percentage 102 mg/dL 74-106 [facility] Basophil percentage 7.3 g/dL 6.4-8.2 [facility] Basophil percentage 0.80 mg/dL 0.20-1.00 [facility] Basophil percentage 204 mg/dL <200 [facility] Basophil percentage 173 mg/dL <199 [facility] Basophil percentage 138 mmol/L 136-145 [facility] Basophil percentage 3.4 mmol/L 3.5-5.1 [facility] Basophil percentage 106 mmol/L 98-107 [facility] Determination of erythrocyte mean corpuscular volume (MCV)Ordered By: Leigh Sales on 01-21-2024 MCV (RBC) [Entitic vol] 92.4 fL 81-99 [facility] Erythrocyte distribution wid th ratioOrdered By: Leigh Sales on 01-21-2024 Erythrocyte distribution width (RBC) [Ratio] 12.4 % 11.6-14.6 [facility] Erythrocyte distribution wid th standard deviationOrdered By: Leigh Sales on 01-21-2024 Erythrocyte distribution width (RBC) [Entitic vol] 41.9 fL 35.1-43.9 [facility] Hematocrit Auto (Bld) [Volum e fraction]Ordered By: Leigh Sales on 01-21-2024 Hematocrit (Bld) [Volume fraction] 42.3 % 37-47 [facility] Immature granulocytes/100 WB C Auto (Bld)Ordered By: Leigh Sales on 01-21-2024 Immature granulocytes/100 WBC (Bld) 0.300 % 0.0-0.9 [facility] Laboratory - Miscellaneous t estsOrdered By: Leigh Sales on 01-21-2024 Service comment (Unsp spec) [Interp] Comment . [facility] No Panel InformationOrdered By: Leigh Sales on 01-21-2024 30.3 pg 27.0-32.0 [facility] 32.9 g/dL 32-36 [facility] 270 K/mm3 150-450 [facility] 9.1 fl 6.2-12.0 [facility] 0 % 0-5 [facility] 11 IU/mL 6-495 [facility] <0.10 kU/L Class 0 [facility] No Panel InformationOrdered By: Cristian Perales on 01-21-2024 12.6 SECONDS 11.7-14.9 [facility] 0.9 [facility] 69 mL/min >60 [facility] 84 mL/min >60 [facility] 12.6 RATIO 10-20 [facility] 4.1 g/dL 2.2-4.2 [facility] 0.8 RATIO 0.9-2.4 [facility] 63 U/L 45-117 [facility] 22 U/L 13-56 [facility] 28.0 mmol/L 21.0-32.0 [facility] 40 mg/dL >40 [facility] 129 mg/dL 0-130 [facility] 35 mg/dL 5-40 [facility] 3.95 mg/L 0.0-3.0 [facility] 70 ng/mL 8-252 [facility] Negative Negative [facility] Not Reportable [facility] 5.2 ng/mL 0.0-9.2 [facility] RBC Auto (Bld) [#/Vol]Ordere d By: Leigh Sales on 01-21-2024 RBC (Bld) [#/Vol] 4.58 10*6/uL 4.2-5.4 [facility] Serum Aspergillus flavus ant ibody detection by immunodiffusionOrdered By: Leigh Sales on 01-21-2024 A. flavus Ab Immune diff Ql (S) Negative Neg:<1:1 [facility] Serum Aspergillus fumigatus antibody detection by immunodiffusionOrdered By: Leigh Sales on 01-21-2024 A. fumigatus Ab Immune diff Ql (S) Negative Neg:<1:1 [facility] Serum Aspergillus niger anti body detection by immunodiffusionOrdered By: Leigh Sales on 01-21-2024 A. niger Ab Immune diff Ql (S) Negative Neg:<1:1 [facility] Serum Bermuda grass IgE anti body assay (units/volume)Ordered By: Leigh Sales on 01-21-2024 Berm[place] grass IgE Qn (S) <0.10 kU/L Class 0 [facility] Serum DNA double strand anti body assay (units/volume)Ordered By: Cristian Perales on 01-21-2024 DNA double strand Ab Qn (S) Not Reportable [facility] Serum Dermatophagoides farin ae specific IgE antibody assay (units/volume)Ordered By: Leigh Sales on 01-21-2024 [place] house dust mite IgE Qn (S) <0.10 kU/L Class 0 [facility] Serum house dust mi te IgE antibody assay (units/volume)Ordered By: Leigh Sales on 01-21-2024 house dust mite IgE Qn (S) <0.10 kU/L Class 0 [facility] Serum [place] blue grass Ig E antibody assay (units/volume)Ordered By: Leigh Sales on 01-21-2024 [place] blue grass IgE Qn (S) <0.10 kU/L Class 0 [facility] Serum Scl-70 antibody assay (units/volume)Ordered By: Cristian Perales on 01-21-2024 SCL-70 extractable nuclear Ab Qn (S) Not Reportable [facility] Serum cat dander IgE antibod y assay (units/volume)Ordered By: Leigh Sales on 01-21-2024 Cat dander IgE Qn (S) <0.10 kU/L Class 0 [facility] Serum dog epithelium IgE ant ibody assay (units/volume)Ordered By: Leigh Sales on 01-21-2024 Dog epithelium IgE Qn (S) <0.10 kU/L Class 0 [facility] Serum or plasma calcium shimon urement (mass/volume)Ordered By: Cristian Perales on 01-21-2024 Calcium [Mass/Vol] 9.0 mg/dL 8.5-10.1 [facility] Serum or plasma creatinine m easurement (mass/volume)Ordered By: Cristian Perales on 01-21-2024 Creatinine [Mass/Vol] 0.88 mg/dL 0.55-1.02 [facility] Serum or plasma urea nitroge n measurement (mass/volume)Ordered By: Cristian Perales on 01-21-2024 Urea nitrogen [Mass/Vol] 11 mg/dL 7-18 [facility] Serum white elm IgE antibody assay (units/volume)Ordered By: Leigh Sales on 01-21-2024 White Elm IgE Qn (S) <0.10 kU/L Class 0 [facility] Serum white oak IgE antibody assay (units/volume)Ordered By: Leigh Sales on 01-21-2024 Alvarado IgE Qn (S) <0.10 kU/L Class 0 [facility] Thin prep Papanicolaou smear with manual screeningOrdered By: Cristian Perales on 01-21-2024 Thin prep Papanicolaou smear with manual screening 3.2 g/dL 3.2-5.0 [facility] Thin prep Papanicolaou smear with manual screening 16 U/L 15-37 [facility] Thin prep Papanicolaou smear with manual screening 4 5-15 [facility] Whole blood hemoglobin A1c/t otal hemoglobin ratio (mass fraction)Ordered By: Cristian Perales on 01-21-2024 HbA1c (Bld) [Mass fraction] 6.1 % 3.8-5.6 [facility] Bacteria identified Cx Nom ( U)Ordered By: Ryan Leyva on 01-09-2024 Culture, urine Klebsiella aerogenes [facility] Basophil percentageOrdered B y: Ryan Leyva on 01-09-2024 Basophil percentage 0-5 SEEN /hpf 0-5 [facility] Bilirubin Test strip Ql (U)O rdered By: Ryan Leyva on 01-09-2024 Bilirubin Ql (U) Negative Negative [facility] Culture, urineOrdered By: Derrell Leyva on 01-09-2024 Bacteria identified Cx Nom (U) Klebsiella aerogenes [facility] Ketones Test strip Ql (U)Ord ered By: Ryan Leyva on 01-09-2024 Ketones Ql (U) Negative Negative [facility] Mucus LM Ql (Urine sed)Order ed By: Ryan Leyva on 01-09-2024 Mucus Ql (Urine sed) 0 SEEN /hpf [facility] Nitrite Test strip Ql (U)Ord ered By: Ryan Leyva on 01-09-2024 Nitrite Ql (U) Positive Negative [facility] No Panel InformationOrdered By: Ryan Leyva on 01-09-2024 Urine RBC 0 SEEN /hpf 0-5 [facility] 0 SEEN /hpf 0-5 [facility] Protein Test strip Ql (U)Ord ered By: Ryan Leyva on 01-09-2024 Protein Ql (U) 15 mg/dl Negative [facility] Squamous epithelial cells de tection in urine sediment by light microscopyOrdered By: Ryan Leyva on 01-09-2024 Epithelial cells.squamous LM Ql (Urine sed) 0-5 SEEN /hpf 5-10 [facility] Urine blood detectionOrdered By: Ryan Leyva on 01-09-2024 RBC Ql (U) 10 /ul Negative [facility] Urine clarityOrdered By: Pranav Leyva on 01-09-2024 Clarity (U) Clear Clear [facility] Urine color determinationOrd ered By: Ryan Leyva on 01-09-2024 Color (U) Yellow Yellow [facility] Urine glucose detectionOrder ed By: Ryan Leyva on 01-09-2024 Glucose Ql (U) Normal mg/dl Normal [facility] Urine leukocyte esterase det ection by dipstickOrdered By: Ryan Leyva on 01-09-2024 Leukocyte esterase Test strip Ql (U) 25 /ul Negative [facility] Urine pHOrdered By: Jackie Leyva on 01-09-2024 pH (U) 6.0 [pH] 5.0 - 8.0 [facility] Urine sediment bacteria coun t by microscopy (number/high power field)Ordered By: Ryan Leyva on 01-09-2024 Bacteria LM.HPF (Urine sed) [#/Area] 1 /[HPF] None Seen [facility] Urine sediment renal epithel ial cell count by microscopy (number/high power field)Ordered By: Ryan Leyva on 01-09-2024 Epithelial cells.renal LM.HPF (Urine sed) [#/Area] 0 /[HPF] 0-5 [facility] Urine specific gravity measu rementOrdered By: Ryan Leyva on 01-09-2024 Specific gravity (U) [Rel density] 1.020 1.002-1.030 [facility] Urine urobilinogen measureme ntOrdered By: Ryan Leyva on 01-09-2024 Urobilinogen Ql (U) Normal mg/dl Normal [facility] Bacteria identified Cx Nom ( U)Ordered By: Ryan Leyva on 12-22-2023 Culture, urine Escherichia coli [facility] Basophil percentageOrdered B y: Ryan Leyva on 12-22-2023 Basophil percentage 10-25 SEEN /hpf 0-5 [facility] Bilirubin Test strip Ql (U)O rdered By: Ryan Leyva on 12-22-2023 Bilirubin Ql (U) Negative Negative [facility] Culture, urineOrdered By: Derrell Leyva on 12-22-2023 Bacteria identified Cx Nom (U) Escherichia coli [facility] Ketones Test strip Ql (U)Ord ered By: Ryan Leyva on 12-22-2023 Ketones Ql (U) Negative Negative [facility] Laboratory - Microbiology an d Antimicrobial susceptibilityon 12-22-2023 S. pyogenes Ag IA Ql (Unsp spec) Positive [facility] Mucus LM Ql (Urine sed)Order ed By: Ryan Leyva on 12-22-2023 Mucus Ql (Urine sed) 0 SEEN /hpf [facility] Nitrite Test strip Ql (U)Ord ered By: Ryan Leyva on 12-22-2023 Nitrite Ql (U) Positive Negative [facility] No Panel InformationOrdered By: Ryan Leyva on 12-22-2023 Urine RBC 0-5 SEEN /hpf 0-5 [facility] 0-5 SEEN /hpf 0-5 [facility] No Panel Informationon 12-22 Positive [facility] Protein Test strip Ql (U)Ord ered By: Ryan Leyva on 12-22-2023 Protein Ql (U) 15 mg/dl Negative [facility] Squamous epithelial cells de tection in urine sediment by light microscopyOrdered By: Ryan Leyva on 12-22-2023 Epithelial cells.squamous LM Ql (Urine sed) 0-5 SEEN /hpf 5-10 [facility] Urine blood detectionOrdered By: Ryan Leyva on 12-22-2023 RBC Ql (U) 10 /ul Negative [facility] Urine clarityOrdered By: Pranav Leyva on 12-22-2023 Clarity (U) Sl. Cloudy Clear [facility] Urine color determinationOrd ered By: Ryan Leyva on 12-22-2023 Color (U) Yellow Yellow [facility] Urine glucose detectionOrder ed By: Ryan Leyva on 12-22-2023 Glucose Ql (U) Normal mg/dl Normal [facility] Urine leukocyte esterase det ection by dipstickOrdered By: Ryan Leyva on 12-22-2023 Leukocyte esterase Test strip Ql (U) 500 /ul Negative [facility] Urine pHOrdered By: Jackie Leyva on 12-22-2023 pH (U) 6.0 [pH] 5.0 - 8.0 [facility] Urine sediment bacteria coun t by microscopy (number/high power field)Ordered By: Ryan Leyva on 12-22-2023 Bacteria LM.HPF (Urine sed) [#/Area] 1 /[HPF] None Seen [facility] Urine specific gravity measu rementOrdered By: Ryan Leyva on 12-22-2023 Specific gravity (U) [Rel density] 1.015 1.002-1.030 [facility] Urine urobilinogen measureme ntOrdered By: Ryan Leyva on 12-22-2023 Urobilinogen Ql (U) Normal mg/dl Normal [facility] Basophil percentageOrdered B y: Ryan Leyva on 08-06-2023 Chloride [Moles/Vol] 100 mmol/L 98-107 [facility] Glucose [Mass/Vol] 97 mg/dL 74-106 [facility] Potassium [Moles/Vol] 3.7 mmol/L 3.5-5.1 [facility] Sodium [Moles/Vol] 136 mmol/L 136-145 [facility] Laboratory - Chemistry and C hemistry - challengeOrdered By: Ryan Leyva on 08-06-2023 CO2 [Moles/Vol] 29.0 mmol/L 21.0-32.0 [facility] Urea nitrogen/Creatinine [Mass ratio] 15.5 mg/mg 10-20 [facility] No Panel InformationOrdered By: Ryan Leyva on 08-06-2023 Estimated GFR (MDRD) Amer 81 mL/min >60 [facility] Comment on above: GFR Calc Estimated GFR (MDRD) Non-Af Amer 67 mL/min >60 [facility] Comment on above: Non- GFR Calc Serum or plasma calcium shimon urement (mass/volume)Ordered By: Ryan Leyva on 08-06-2023 Calcium [Mass/Vol] 9.3 mg/dL 8.5-10.1 [facility] Serum or plasma creatinine m easurement (mass/volume)Ordered By: Ryan Leyva on 08-06-2023 Creatinine [Mass/Vol] 0.90 mg/dL 0.55-1.02 [facility] Comment on above: The validity of the calculated GFR & GFRAA in patients over 70 years has not been determined. Clinical correlation is essential. Serum or plasma urea nitroge n measurement (mass/volume)Ordered By: Ryan Leyva on 08-06-2023 Urea nitrogen [Mass/Vol] 14 mg/dL 06-17 [facility] Thin prep Papanicolaou smear with manual screeningOrdered By: Ryan Leyva on 08-06-2023 Thin prep Papanicolaou smear with manual screening 7 - [facility] Absolute lymphocyte countOrd ered By: Dr. Leyva on 03-21-2023 Lymphocytes Auto (Unsp spec) [#/Vol] 3.18 10*3/uL 0.83-4.51 [facility] Basophil percentageOrdered B y: Dr. Leyva on 03-21-2023 Basophils/100 WBC (Bld) 0.8 % 0-1 [facility] Bilirubin [Mass/Vol] 1.00 mg/dL 0.20-1.00 [facility] Comment on above: For patients on eltr ombopag therapy, use of Dimension [place] TBIL is not recommended. Chloride [Moles/Vol] 96 mmol/L 98-107 [facility] Cholesterol [Mass/Vol] 142 mg/dL <200 [facility] Comment on above: <200 mg/dL Desirable 200-240 mg/dL Borderline >240 mg/dL High Risk Eosinophils/100 WBC (Bld) 4.2 % 0-5 [facility] Glucose [Mass/Vol] 91 mg/dL 74-106 [facility] Neutrophils (Bld) [#/Vol] 6.1 10*3/uL 2.0-7.7 [facility] Neutrophils/100 WBC (Bld) 56.9 % 47-70 [facility] Potassium [Moles/Vol] 3.4 mmol/L 3.5-5.1 [facility] Protein [Mass/Vol] 7.6 g/dL 6.4-8.2 [facility] Sodium [Moles/Vol] 133 mmol/L 136-145 [facility] Triglyceride [Mass/Vol] 132 mg/dL <199 [facility] Comment on above: The drugs N-Acetylcy steine and Metamizole may falsely depress this assay.Serum Triglycerides Reference Interval Normal <150 mg/dL Borderline high 150 - 199 mg/dL High 200 - 499 mg/dL Very High > or = 500 mg/dL WBC (Bld) [#/Vol] 10.7 10*3/uL 4.4-11.0 [facility] Blood erythrocytes count (nu mber/volume)Ordered By: Dr. Leyva on 03-21-2023 RBC (Bld) [#/Vol] 4.58 10*6/uL 4.2-5.4 [facility] Blood hemoglobin measurement (mass/volume)Ordered By: Dr. Leyva on 03-21-2023 Hemoglobin (Bld) [Mass/Vol] 14.3 g/dL 12.0-15.0 [facility] Blood lymphocytes/100 leukoc ytesOrdered By: Dr. Leyva on 03-21-2023 Lymphocytes/100 WBC (Bld) 29.8 % 19-41 [facility] Blood monocytes/100 leukocyt esOrdered By: Dr. Leyva on 03-21-2023 Monocytes/100 WBC (Bld) 7.9 % 0-10 [facility] Blood platelet mean volumeOr dered By: Dr. Leyva on 03-21-2023 Platelet mean volume (Bld) [Entitic vol] 9.6 fL 6.2-12.0 [facility] Determination of erythrocyte mean corpuscular volume (MCV)Ordered By: Dr. Leyva on 03-21-2023 MCV (RBC) [Entitic vol] 92.8 fL 81-99 [facility] Hematocrit Auto (Bld) [Volum e fraction]Ordered By: Dr. Leyva on 03-21-2023 Hematocrit (Bld) [Volume fraction] 42.5 % 37-47 [facility] Laboratory - Chemistry and C hemistry - challengeOrdered By: Dr. Leyva on 03-21-2023 ALP [Catalytic activity/Vol] 75 U/L 45-117 [facility] ALT [Catalytic activity/Vol] 39 U/L 13-56 [facility] CO2 [Moles/Vol] 30.0 mmol/L 21.0-32.0 [facility] Globulin (S) [Mass/Vol] 4.1 g/dL 2.2-4.2 [facility] Urea nitrogen/Creatinine [Mass ratio] 11.0 mg/mg 10-20 [facility] Laboratory - Hematology and Cell countsOrdered By: Dr. Leyva on 03-21-2023 Erythrocyte distribution width (RBC) [Entitic vol] 44.2 fL 35.1-43.9 [facility] Erythrocyte distribution width (RBC) [Ratio] 13.0 % 11.6-14.6 [facility] Immature granulocytes/100 WBC (Bld) 0.400 % 0.0-0.9 [facility] Comment on above: IG% - Immature Granu locytes (promyelocytes, myelocytes and metamyelocytes) > 1% indicates that a LEFT SHIFT is Present. MCH (RBC) [Entitic mass] 31.2 pg 27.0-32.0 [facility] Nucleated RBC/100 WBC (Bld) [Ratio] 0 % 0-5 [facility] MCHC Auto (RBC) [Mass/Vol]Or dered By: Dr. Leyva on 03-21-2023 MCHC (RBC) [Mass/Vol] 33.6 g/dL 32-36 [facility] No Panel InformationOrdered By: Dr. Leyva on 03-21-2023 Estimated GFR (MDRD) Amer 90 mL/min >60 [facility] Comment on above: GFR Calc Estimated GFR (MDRD) Non-Af Amer 75 mL/min >60 [facility] Comment on above: Non- GFR Calc Vitamin D 25-Hydroxy 85.6 ng/mL [facility] Comment on above: Vitamin D 25(OH) Sta tus Range Deficiency <20 ng/mL (50nmol/L) Insufficiency 20 - 30 ng/mL (50 - 75 nmol/L) Sufficiency 30 - 100 ng/mL (75 - 250 nmol/L) Toxicity >100 ng/mL (>250 nmol/L) No Panel InformationOrdered By: Dr. Bhandari on 03-21-2023 Thyroid Stimulating Hormone (TSH) 3.39 uIU/mL 0.358-3.74 [facility] Platelets bldOrdered By: Dr. Leyva on 03-21-2023 Platelets (Bld) [#/Vol] 261 10*3/uL 150-450 [facility] Serum or plasma albumin shimon urement (mass/volume)Ordered By: Dr. Leyva on 03-21-2023 Albumin [Mass/Vol] 3.5 g/dL 3.2-5.0 [facility] Serum or plasma albumin/glob ulin mass ratioOrdered By: Dr. Leyva on 03-21-2023 Albumin/Globulin [Mass ratio] 0.9 {ratio} 0.9-2.4 [facility] Serum or plasma calcium shimon urement (mass/volume)Ordered By: Dr. Leyva on 03-21-2023 Calcium [Mass/Vol] 9.5 mg/dL 8.5-10.1 [facility] Serum or plasma cholesterol in HDL measurement (mass/volume)Ordered By: Dr. Leyva on 03-21-2023 Cholesterol in HDL [Mass/Vol] 46 mg/dL >40 [facility] Comment on above: The drugs N-Acetylcy steine and Metamizole may falsely depress this assay. Reference Range HDL <40 mg/dL Low HDL Cholesterol HDL >or= 60 mg/dL High HDL Cholesterol Serum or plasma cholesterol in VLDL measurement (mass/volume)Ordered By: Dr. Leyva on 03-21-2023 Cholesterol in VLDL [Mass/Vol] 26 mg/dL 5-40 [facility] Serum or plasma creatinine m easurement (mass/volume)Ordered By: Dr. Leyva on 03-21-2023 Creatinine [Mass/Vol] 0.82 mg/dL 0.55-1.02 [facility] Comment on above: The validity of the calculated GFR & GFRAA in patients over 70 years has not been determined. Clinical correlation is essential. Serum or plasma low density lipoprotein (LDL) cholesterol measurement (mass/volume)Ordered By: Dr. Leyva on 03-21-2023 Cholesterol in LDL [Mass/Vol] 70 mg/dL 0-130 [facility] Serum or plasma urea nitroge n measurement (mass/volume)Ordered By: Dr. Leyva on 03-21-2023 Urea nitrogen [Mass/Vol] 9 mg/dL 7-18 [facility] Thin prep Papanicolaou smear with manual screeningOrdered By: Dr. Leyva on 03-21-2023 Thin prep Papanicolaou smear with manual screening 36 U/L 15-37 [facility] Thin prep Papanicolaou smear with manual screening 7 5-15 [facility] No Panel InformationOrdered By: Gretchen Dickens on 11-11-2022 Stool Neutral Fats Normal . [facility] Comment on above: Normal (<60 Droplets /HPF) Stool Pancreatic Elastase 205 >200 [facility] Comment on above: Result Units: ug Lucinda st./g Severe Pancreatic Insufficiency: <100 Moderate Pancreatic Insufficiency: 100 - 200 Normal: >200Performed at: - [facility] [address] [id number] Director: Selvin Sahu MD, Phone: [phone] Qualitative fecal fat or lip idsOrdered By: Gretchen Dickens on 11-11-2022 Fat Ql (Stl) Increased . [facility] Comment on above: Normal (<100 Droplet s/HPF)Performed at: - [facility] [address] [id number] Director: Shubham Duarte PhD, Phone: [phone] Absolute lymphocyte countOrd ered By: Gretchen Dickens on 11-05-2022 Lymphocytes Auto (Unsp spec) [#/Vol] 3.87 10*3/uL 0.83-4.51 [facility] Basophil percentageOrdered B y: Gretchen Dickens on 11-05-2022 Amylase [Catalytic activity/Vol] 34 U/L 25-115 [facility] Basophils/100 WBC (Bld) 0.9 % 0-1 [facility] Bilirubin [Mass/Vol] 1.20 mg/dL 0.20-1.00 [facility] Comment on above: For patients on eltr ombopag therapy, use of Dimension [place] TBIL is not recommended. Chloride [Moles/Vol] 100 mmol/L 98-107 [facility] Eosinophils/100 WBC (Bld) 1.9 % 0-5 [facility] Glucose [Mass/Vol] 103 mg/dL 74-106 [facility] Comment on above: Fasting Glucose resu lt from 100 to 125 mg/dL suggests IMPAIRED HOMEOSTASIS per A.D.A. criteria. Neutrophils (Bld) [#/Vol] 4.9 10*3/uL 2.0-7.7 [facility] Neutrophils/100 WBC (Bld) 49.6 % 47-70 [facility] Potassium [Moles/Vol] 3.4 mmol/L 3.5-5.1 [facility] Protein [Mass/Vol] 7.9 g/dL 6.4-8.2 [facility] Sodium [Moles/Vol] 137 mmol/L 136-145 [facility] WBC (Bld) [#/Vol] 9.8 10*3/uL 4.4-11.0 [facility] Blood erythrocytes count (nu mber/volume)Ordered By: Gretchen Dickens on 11-05-2022 RBC (Bld) [#/Vol] 4.94 10*6/uL 4.2-5.4 [facility] Blood hemoglobin measurement (mass/volume)Ordered By: Gretchen Dickens on 11-05-2022 Hemoglobin (Bld) [Mass/Vol] 15.1 g/dL 12.0-15.0 [facility] Blood lymphocytes/100 leukoc ytesOrdered By: Gretchen Dickens on 11-05-2022 Lymphocytes/100 WBC (Bld) 39.4 % 19-41 [facility] Blood monocytes/100 leukocyt esOrdered By: Gretchen Dickens on 11-05-2022 Monocytes/100 WBC (Bld) 8.0 % 0-10 [facility] Blood platelet mean volumeOr dered By: Gretchen Dickens on 11-05-2022 Platelet mean volume (Bld) [Entitic vol] 9.5 fL 6.2-12.0 [facility] Determination of erythrocyte mean corpuscular volume (MCV)Ordered By: Gretchen Dickens on 11-05-2022 MCV (RBC) [Entitic vol] 93.1 fL 81-99 [facility] Hematocrit Auto (Bld) [Volum e fraction]Ordered By: Gretchen Dickens on 11-05-2022 Hematocrit (Bld) [Volume fraction] 46.0 % 37-47 [facility] Laboratory - Chemistry and C hemistry - challengeOrdered By: Gretchen Dickens on 11-05-2022 ALP [Catalytic activity/Vol] 63 U/L 45-117 [facility] ALT [Catalytic activity/Vol] 43 U/L 13-56 [facility] Amylase [Catalytic activity/Vol] 31 U/L 5-55 [facility] CO2 [Moles/Vol] 31.0 mmol/L 21.0-32.0 [facility] Globulin (S) [Mass/Vol] 4.2 g/dL 2.2-4.2 [facility] Lipase [Catalytic activity/Vol] 112 U/L 73-393 [facility] Urea nitrogen/Creatinine [Mass ratio] 14.3 mg/mg 10-20 [facility] Laboratory - Hematology and Cell countsOrdered By: Gretchen Dickens on 11-05-2022 Erythrocyte distribution width (RBC) [Entitic vol] 43.0 fL 35.1-43.9 [facility] Erythrocyte distribution width (RBC) [Ratio] 12.5 % 11.6-14.6 [facility] Immature granulocytes/100 WBC (Bld) 0.200 % 0.0-0.9 [facility] Comment on above: IG% - Immature Granu locytes (promyelocytes, myelocytes and metamyelocytes) > 1% indicates that a LEFT SHIFT is Present. MCH (RBC) [Entitic mass] 30.6 pg 27.0-32.0 [facility] Nucleated RBC/100 WBC (Bld) [Ratio] 0 % 0-5 [facility] MCHC Auto (RBC) [Mass/Vol]Or dered By: Gretchen Dickens on 11-05-2022 MCHC (RBC) [Mass/Vol] 32.8 g/dL 32-36 [facility] No Panel InformationOrdered By: Gretchen Dickens on 11-05-2022 Estimated GFR (MDRD) Amer 81 mL/min >60 [facility] Comment on above: GFR Calc Estimated GFR (MDRD) Non-Af Amer 67 mL/min >60 [facility] Comment on above: Non- GFR Calc Platelets bldOrdered By: Korina Dickens on 11-05-2022 Platelets (Bld) [#/Vol] 320 10*3/uL 150-450 [facility] Serum or plasma albumin shimon urement (mass/volume)Ordered By: Gretchen Dickens on 11-05-2022 Albumin [Mass/Vol] 3.7 g/dL 3.2-5.0 [facility] Serum or plasma albumin/glob ulin mass ratioOrdered By: Gretchen Dickens on 11-05-2022 Albumin/Globulin [Mass ratio] 0.9 {ratio} 0.9-2.4 [facility] Serum or plasma calcium shimon urement (mass/volume)Ordered By: Gretchen Dickens on 11-05-2022 Calcium [Mass/Vol] 9.6 mg/dL 8.5-10.1 [facility] Serum or plasma creatinine m easurement (mass/volume)Ordered By: Gretchen Dickens on 11-05-2022 Creatinine [Mass/Vol] 0.91 mg/dL 0.55-1.02 [facility] Comment on above: The validity of the calculated GFR & GFRAA in patients over 70 years has not been determined. Clinical correlation is essential. Serum or plasma gastrin shimon urement (mass/volume)Ordered By: Gretchen Dickens on 11-05-2022 Gastrin [Mass/Vol] 64 pg/mL 0-115 [facility] Comment on above: Siemens Immulite 200 0 Immunochemiluminometric assay (ICMA)Values obtained with different assay methods or kits cannotbe used interchangeably. Results cannot be interpreted asabsolute evidence of the presence or absence of malignantdisease.Performed at: [facility] [id number] Director: Selvin Sahu MD, Phone: [phone] Serum or plasma urea nitroge n measurement (mass/volume)Ordered By: Gretchen Dickens on 11-05-2022 Urea nitrogen [Mass/Vol] 13 mg/dL 7-18 [facility] Thin prep Papanicolaou smear with manual screeningOrdered By: Gretchen Dickens on 11-05-2022 Thin prep Papanicolaou smear with manual screening 42 U/L 15-37 [facility] Thin prep Papanicolaou smear with manual screening 6 5-15 [facility] Serum or plasma gastrin shimon urement (mass/volume)on 07-16-2022 Gastrin [Mass/Vol] 871 pg/mL 0-115 [facility] Work Phone: Comment on above: Siemens Immulite 200 0 Immunochemiluminometric assay (ICMA)Values obtained with different assay methods or kits cannotbe used interchangeably. Results cannot be interpreted asabsolute evidence of the presence or absence of malignantdisease.Performed at: [employer] [id number] Director: Selvin Sahu MD, Phone: [phone] Laboratory - Chemistry and C hemistry - challengeon 05-20-2022 Cobalamin (Vitamin B12) [Mass/Vol] 263 pg/mL 211-911 [facility] Work Phone: Serum or plasma folate measu rement (mass/volume)on 05-20-2022 Folate [Mass/Vol] 7.00 ng/mL 3.1-55.4 [facility] Work Phone: Serum or plasma gastrin shimon urement (mass/volume)on 05-20-2022 Gastrin [Mass/Vol] 564 pg/mL 0-115 [facility] Work Phone: Comment on above: Siemens Immulite 200 0 Immunochemiluminometric assay (ICMA)Values obtained with different assay methods or kits cannotbe used interchangeably. Results cannot be interpreted asabsolute evidence of the presence or absence of malignantdisease.Performed at: [employer] [id number] Director: Selvin Sahu MD, Phone: [phone] Giardia lamblia ag stool EIA on 04-10-2022 G. lamblia Ag IA Ql (Stl) Negative Negative [facility] Work Phone: Comment on above: Performed at: [employer] [address] [id number] Director: Selvin Sahu MD, Phone: [phone] at: [employer] [id number] Director: Shubham Duarte PhD, Phone: [phone] No Panel Informationon 04-10 Enteric Bacteriology [facility] Work Phone: Stool Calprotectin 75 ug/g 0-120 [facility] Work Phone: Comment on above: Concentration Interp retation Follow-Up<16 - 50 ug/g Normal None>50 -120 ug/g Borderline Re-evaluate in 4-6 weeks >120 ug/g Abnormal Repeat as clinically indicatedPerformed at: [employer] [id number] Director: Selvin Sahu MD, Phone: [phone] Stool Helicobacter pylori an tigen detection by immunoassayon 04-10-2022 H. pylori Ag IA Ql (Stl) Negative Negative [facility] Work Phone: Absolute lymphocyte counton 04-08-2022 Lymphocytes Auto (Unsp spec) [#/Vol] 2.73 10*3/uL 0.83-4.51 [facility] Work Phone: Atypical perinuclear antineu trophil cytoplasmic antibodies measurementon 04-08-2022 Neutrophil cytoplasmic Ab.perinuclear.atypical IF (S) [Titer] <1:20 titer Neg:<1:20 [facility] Work Phone: [phone] Comment on above: The atypical pANCA p attern has been observed in asignificant percentage of patients with ulcerative colitis,primary sclerosing cholangitis and autoimmune hepatitis. Basophil percentageon 2021 Ammonia (P) [Moles/Vol] 23.0 umol/L 11-32 [facility] Work Phone: Basophil percentage < 0.2 AI 0.0-0.9 [facility] Work Phone: Basophils/100 WBC (Bld) 1.2 % 0-1 [facility] Work Phone: Bilirubin [Mass/Vol] 0.60 mg/dL 0.20-1.00 [facility] Work Phone: Comment on above: For patients on eltr ombopag therapy, use of Dimension [place] TBIL is not recommended. Chloride [Moles/Vol] 105 mmol/L 98-107 [facility] Work Phone: Eosinophils/100 WBC (Bld) 2.7 % 0-5 [facility] Work Phone: Glucose [Mass/Vol] 99 mg/dL 74-106 [facility] Work Phone: Neutrophils (Bld) [#/Vol] 3.8 10*3/uL 2.0-7.7 [facility] Work Phone: Neutrophils/100 WBC (Bld) 51.3 % 47-70 [facility] Work Phone: Potassium [Moles/Vol] 3.7 mmol/L 3.5-5.1 [facility] Work Phone: Protein [Mass/Vol] 7.2 g/dL 6.4-8.2 [facility] Work Phone: Sodium [Moles/Vol] 138 mmol/L 136-145 [facility] Work Phone: WBC (Bld) [#/Vol] 7.3 10*3/uL 4.4-11.0 [facility]: [phone] Blood erythrocytes count (nu mber/volume)on 04-08-2022 RBC (Bld) [#/Vol] 4.63 10*6/uL 4.2-5.4 [facility] Work Phone: [phone] Blood hemoglobin measurement (mass/volume)on 04-08-2022 Hemoglobin (Bld) [Mass/Vol] 14.3 g/dL 12.0-15.0 [facility] Work Phone: Blood lymphocytes/100 leukoc yteson 04-08-2022 Lymphocytes/100 WBC (Bld) 37.2 % 19-41 [facility] Work Phone: Blood monocytes/100 leukocyt eson 04-08-2022 Monocytes/100 WBC (Bld) 7.1 % 0-10 [facility] Work Phone: [phone] Blood platelet mean volumeon 04-08-2022 Platelet mean volume (Bld) [Entitic vol] 9.3 fL 6.2-12.0 [facility] Work Phone: Determination of erythrocyte mean corpuscular volume (MCV)on 04-08-2022 MCV (RBC) [Entitic vol] 92.9 fL 81-99 [facility] Work Phone: Direct bilirubinon Bilirubin.direct [Mass/Vol] 0.19 mg/dL 0.00-0.30 [facility] Work Phone: [phone] Erythrocyte sedimentation ra lakesha 04-08-2022 ESR (Bld) [Velocity] 26 mm/h 0-30 [facility] Work Phone: HIV 1 and HIV-2 antibody ass ay with HIV-1 p24 antigen detectionon 04-08-2022 HIV 1+2 Ab+HIV1 p24 Ag IA Ql Non-Reactive Nonreactive [facility] Work Phone: Hematocrit Auto (Bld) [Volum e fraction]on 04-08-2022 Hematocrit (Bld) [Volume fraction] 43.0 % 37-47 [facility] Work Phone: [phone] INR in Blood by Coagulation assayon 04-08-2022 INR Coag (Bld) [Relative time] 1.1 {INR} [facility] Work Phone: Laboratory - Chemistry and C hemistry - challengeon 04-08-2022 ALP [Catalytic activity/Vol] 60 U/L 45-117 [facility] Work Phone: ALT [Catalytic activity/Vol] 32 U/L 13-56 [facility] Work Phone: CO2 [Moles/Vol] 24.0 mmol/L 21.0-32.0 [facility] Work Phone: Globulin (S) [Mass/Vol] 3.8 g/dL 2.2-4.2 [facility] Work Phone: [phone] Urea nitrogen/Creatinine [Mass ratio] 15.9 mg/mg 10-20 [facility] Work Phone: [phone] Laboratory - Coagulationon 0 04-08-2022 PT Coag (PPP) [Time] 13.8 s 11.7-14.9 [facility] Work Phone: Laboratory - Hematology and Cell countson 04-08-2022 Erythrocyte distribution width (RBC) [Entitic vol] 42.2 fL 35.1-43.9 [facility] Work Phone: [phone] Erythrocyte distribution width (RBC) [Ratio] 12.3 % 11.6-14.6 [facility] Work Phone: [phone] Immature granulocytes/100 WBC (Bld) 0.500 % 0.0-0.9 [facility] Work Phone: [phone] Comment on above: IG% - Immature Granu locytes (promyelocytes, myelocytes and metamyelocytes) > 1% indicates that a LEFT SHIFT is Present. MCH (RBC) [Entitic mass] 30.9 pg 27.0-32.0 [facility] Work Phone: [phone] Nucleated RBC/100 WBC (Bld) [Ratio] 0 % 0-5 [facility] Work Phone: MCHC Auto (RBC) [Mass/Vol]on 04-08-2022 MCHC (RBC) [Mass/Vol] 33.3 g/dL 32-36 [facility] Work Phone: No Panel Informationon 04-08 Centromere B Antibody <0.2 AI 0.0-0.9 [facility] Work Phone: Ceruloplasmin 22.6 mg/dL 19.0-39.0 [facility] Work Phone: Endomysial IgA Antibody Negative Negative [facility] Work Phone: Estimated GFR (MDRD) Amer 99 mL/min >60 [facility] Work Phone: Comment on above: GFR Calc Estimated GFR (MDRD) Non-Af Amer 82 mL/min >60 [facility] Work Phone: Comment on above: Non- GFR Calc Haptoglobin 159 mg/dL 37-355 [facility] Work Phone: Comment on above: Performed at: [address] [id number] Director: Shubham Duarte PhD, Phone: [phone] at: [facility] [id number] Director: Selvin Sahu MD, Phone: [phone] Hepatitis A IgM Antibody Negative Negative [facility] Work Phone: Hepatitis B Core IgM Antibody Negative Negative [facility] Work Phone: Hepatitis C Antibody (EIA) <0.1 s/co ratio 0.0-0.9 [facility] Work Phone: Hepatitis C Antibody Comment Comment . [facility] Work Phone: Comment on above: NegativeNot infected with HCV, unless recent infection issuspected or other evidence exists to indicate HCVinfection. Immunoglobulin E 4 IU/mL 6-495 [facility] Work Phone: SENIOR ACCOUNTANT Antibody <0.2 AI 0.0-0.9 [facility] Work Phone: Thyroid Stimulating Hormone (TSH) 1.59 uIU/mL 0.358-3.74 [facility] Work Phone: Platelets bldon 04-08-2022 Platelets (Bld) [#/Vol] 302 10*3/uL 150-450 [facility] Work Phone: Serum DNA double strand anti body assay (units/volume)on 04-08-2022 DNA double strand Ab Qn (S) [IU]/mL 0-9 [facility] Work Phone: Comment on above: Negative <5 Equivoca l 5 - 9 Positive >9 Serum Inna-1 antibody assay (u nits/volume)on 04-08-2022 Inna-1 extractable nuclear Ab Qn (S) <0.2 AI 0.0-0.9 [facility] Work Phone: Serum Scl-70 extractable nuc lear antibody assay (units/volume)on 04-08-2022 SCL-70 extractable nuclear Ab Qn (S) 0.3 AI 0.0-0.9 [facility] Work Phone: Serum Jordan extractable nucl ear antibody detectionon 04-08-2022 Jordan extractable nuclear Ab Ql (S) <0.2 AI 0.0-0.9 [facility] Work Phone: Serum classic neutrophil cyt oplasmic antibody assay (units/volume)on 04-08-2022 Neutrophil cytoplasmic Ab.classic Qn (S) <1:20 titer Neg:<1:20 [facility] Work Phone: Serum mitochondria antibody detectionon 04-08-2022 Mitochondria Ab Ql (S) <20.0 Units 0.0-20.0 [facility] Work Phone: Comment on above: Negative 0.0 - 20.0 Equivocal 20.1 - 24.9 Positive >24.9Mitochondrial (M2) Antibodies are found in 90-96% ofpatients with primary biliary cirrhosis.Performed at: - [facility] [id number] [place], [place] [id number] Director: Shubham Duarte PhD, Phone: [phone] Serum or plasma C reactive p rotein measurement (mass/volume)on 04-08-2022 CRP [Mass/Vol] 5.54 mg/L 0.0-3.0 [facility] Work Phone: Comment on above: C-Reactive Protein ( CRP) provides useful information for thediagnosis, therapy and monitoring of inflammatory processesand associated diseases. For the evaluation of Relative Riskfor Cardiovascular Disease, a High Sensitivity CRP (HSCRP)should be ordered. Serum or plasma IgA measurem ent (mass/volume)on 04-08-2022 IgA [Mass/Vol] 347 mg/dL 87-352 [facility] Work Phone: Serum or plasma IgG measurem ent (mass/volume)on 04-08-2022 IgG [Mass/Vol] 862 mg/dL [phone] [facility] Work Phone: Serum or plasma IgM measurem ent (mass/volume)on 04-08-2022 IgM [Mass/Vol] 241 mg/dL 26-217 [facility] Work Phone: Serum or plasma actin IgG an tibody assay (units/volume)on 04-08-2022 Actin IgG Qn 9 Units 0-19 [facility] Work Phone: Comment on above: Negative 0 - 19 Weak positive 20 - 30 Moderate to strong positive >30 Actin Antibodies are found in 52-85% of patients with autoimmune hepatitis or chronic active hepatitis and in 22% of patients with primary biliary cirrhosis. Serum or plasma albumin shimon urement (mass/volume)on 04-08-2022 Albumin [Mass/Vol] 3.4 g/dL 3.2-5.0 [facility] Work Phone: Serum or plasma albumin/glob ulin mass ratioon 04-08-2022 Albumin/Globulin [Mass ratio] 0.9 {ratio} 0.9-2.4 [facility] Work Phone: Serum or plasma calcium shimon urement (mass/volume)on 04-08-2022 Calcium [Mass/Vol] 8.5 mg/dL 8.5-10.1 [facility] Work Phone: Serum or plasma creatinine m easurement (mass/volume)on 04-08-2022 Creatinine [Mass/Vol] 0.76 mg/dL 0.55-1.02 [facility] Work Phone: Comment on above: The validity of the calculated GFR & GFRAA in patients over 70 years has not been determined. Clinical correlation is essential. Serum or plasma ferritin may surement (mass/volume)on 04-08-2022 Ferritin [Mass/Vol] 58 ng/mL 8-252 [facility] Work Phone: Serum or plasma gastrin shimon urement (mass/volume)on 04-08-2022 Gastrin [Mass/Vol] 415 pg/mL 0-115 [facility] Work Phone: Comment on above: Siemens eyetokulite 200 0 Immunochemiluminometric assay (ICMA)Values obtained with different assay methods or kits cannotbe used interchangeably. Results cannot be interpreted asabsolute evidence of the presence or absence of malignantdisease. Serum or plasma hepatitis B virus surface antigen detection by immunoassayon 04-08-2022 HBV surface Ag IA Ql Negative Negative [facility] Work Phone: Serum or plasma urea nitroge n measurement (mass/volume)on 04-08-2022 Urea nitrogen [Mass/Vol] 12 mg/dL 7-18 [facility] Work Phone: Serum perinuclear neutrophil cytoplasmic antibody titer by immunofluorescenceon 04-08-2022 Neutrophil cytoplasmic Ab.perinuclear IF (S) [Titer] <1:20 titer Neg:<1:20 [facility] Work Phone: Comment on above: The presence of posi tive fluorescence exhibiting P-ANCA orC-ANCA patterns alone is not specific for the diagnosis ofWegener's Granulomatosis (WG) or microscopic polyangiitis.Decisions about treatment should not be based solely onANCA IFA results. The [employer] Consensusrecommends follow up testing of positive sera with both VT-3 and MPO-ANCA enzyme immunoassays. As many as 5% serumsamples are positive only by EIA. Ref. AM J Clin [id number];111:[id number]. Serum rheumatoid factor dete ctionon 04-08-2022 Rheumatoid factor Ql (S) 10.0 IU/mL <15 [facility] Work Phone: Serum tissue transglutaminas e IgA antibody assay (units/volume)on 04-08-2022 tTG IgA Qn (S) <2 U/mL 0-3 [facility] Work Phone: Comment on above: Negative 0 - 3 Weak Positive 4 - 10 Positive >10 Tissue Transglutaminase (tTG) has been identified as the endomysial antigen. Studies have demonstr- ated that endomysial IgA antibodies have over 99% specificity for gluten sensitive enteropathy. Thin prep Papanicolaou smear with manual screeningon 04-08-2022 Thin prep Papanicolaou smear with manual screening 28 U/L 15-37 [facility] Work Phone: Thin prep Papanicolaou smear with manual screening 9 5-15 [facility] Work Phone: Thin prep Papanicolaou smear with manual screening 197 U/L 84-246 [facility] Work Phone: Thin prep Papanicolaou smear with manual screening 99 ug/dL 80-158 [facility] Work Phone: Comment on above: Detection Limit = 5 Whole blood hemoglobin A1c/t otal hemoglobin ratio (mass fraction)on 04-08-2022 HbA1c (Bld) [Mass fraction] 5.8 % 3.8-5.6 [facility] Work Phone: Comment on above: Normal < 5.7 % Predi abetic 5.7 - 6.4 % Diabetic >or= 6.5 % Please note range changes. CNOVon 04-04-2022 CNOV Office Visit (AGHWW1 ) ----- NATALIA MARQUEZ ([id number]) 1960 F Date Time Provider Department 04/04/22 1:45 PM COLLIN GARCIA [id number] During your visit today, we recorded the following information about you: Respiration Weight Height 18/minute 98.4 kg 1.664 m Augusta Saavedra MA 04/14/2022 11:32 AM Signed REVIEW OF SYSTEMS: GENERAL: Well developed, well [...] Negative for excessive bleeding, clots, bleeding disorders. JOSH Adler DPM 04/14/2022 11:32 AM Signed CC: Foot pain left foot Subjective: This [...] pain management but still has no relief. Rayn Leyva MD PAST MEDICAL HISTORY Diagnosis Date [...] Paxil [Paroxetine H* Intolerance Didn't work - Pe (more content not included)... Normal [facility] Amorphous sediment detection in urine sediment by light microscopyon 01-29-2022 Amorphous sediment LM Ql (Urine sed) 1+ PHOS [facility] Work Phone: Basophil percentageon 2021 Basophil percentage 25-50 SEEN /hpf [facility] Work Phone: Chloride [Moles/Vol] 96 mmol/L 98-107 [facility] Work Phone: Glucose [Mass/Vol] 100 mg/dL 74-106 [facility] Work Phone: Comment on above: Fasting Glucose resu lt from 100 to 125 mg/dL suggests IMPAIRED HOMEOSTASIS per A.D.A. criteria. Potassium [Moles/Vol] 3.6 mmol/L 3.5-5.1 [facility] Work Phone: Sodium [Moles/Vol] 134 mmol/L 136-145 [facility] Work Phone: Bilirubin Test strip Ql (U)o n 01-29-2022 Bilirubin Ql (U) Negative Negative [facility] Work Phone: Culture, urineon 01-29-2022 Bacteria identified Cx Nom (U) Klebsiella pneumoniae sp pneum [facility] Work Phone: Ketones Test strip Ql (U)on 01-29-2022 Ketones Ql (U) Negative Negative [facility] Work Phone: Laboratory - Chemistry and C hemistry - challengeon 01-29-2022 CO2 [Moles/Vol] 28.0 mmol/L 21.0-32.0 [facility] Work Phone: Urea nitrogen/Creatinine [Mass ratio] 13.5 mg/mg 10-20 [facility] Work Phone: Mucus LM Ql (Urine sed)on Mucus Ql (Urine sed) 0 SEEN /hpf [facility] Work Phone: Nitrite Test strip Ql (U)on 01-29-2022 Nitrite Ql (U) Negative Negative [facility] Work Phone: No Panel Informationon 01-29 Estimated GFR (MDRD) Amer 82 mL/min >60 [facility] Work Phone: Comment on above: GFR Calc Estimated GFR (MDRD) Non-Af Amer 68 mL/min >60 [facility] Work Phone: Comment on above: Non- GFR Calc Vitamin D 25-Hydroxy 13.2 ng/mL [facility] Work Phone: Comment on above: Vitamin D 25(OH) Sta tus Range Deficiency <20 ng/mL (50nmol/L) Insufficiency 20 - 30 ng/mL (50 - 75 nmol/L) Sufficiency 30 - 100 ng/mL (75 - 250 nmol/L) Toxicity >100 ng/mL (>250 nmol/L) Protein Test strip Ql (U)on 01-29-2022 Protein Ql (U) Negative Negative [facility] Work Phone: Serum or plasma calcium shimon urement (mass/volume)on 01-29-2022 Calcium [Mass/Vol] 9.2 mg/dL 8.5-10.1 [facility] Work Phone: Serum or plasma creatinine m easurement (mass/volume)on 01-29-2022 Creatinine [Mass/Vol] 0.89 mg/dL 0.55-1.02 [facility] Work Phone: Comment on above: The validity of the calculated GFR & GFRAA in patients over 70 years has not been determined. Clinical correlation is essential. Serum or plasma urea nitroge n measurement (mass/volume)on 01-29-2022 Urea nitrogen [Mass/Vol] 12 mg/dL 7-18 [facility] Work Phone: Squamous epithelial cells de tection in urine sediment by light microscopyon 01-29-2022 Epithelial cells.squamous LM Ql (Urine sed) 0-5 SEEN /hpf [facility] Work Phone: Thin prep Papanicolaou smear with manual screeningon 01-29-2022 Thin prep Papanicolaou smear with manual screening 10 5-15 [facility] Work Phone: Urine blood detectionon RBC Ql (U) Negative Negative [facility] Work Phone: RBC Ql (U) 0-5 SEEN /hpf [facility] Work Phone: Urine clarityon 01-29-2022 Clarity (U) Sl. Cloudy Clear [facility] Work Phone: Urine color determinationon 01-29-2022 Color (U) Yellow Yellow [facility] Work Phone: Urine glucose detectionon Glucose Ql (U) Normal mg/dl Normal [facility] Work Phone: Urine leukocyte esterase det ection by dipstickon 01-29-2022 Leukocyte esterase Test strip Ql (U) 500 /ul Negative [facility] Work Phone: Urine pHon 01-29-2022 pH (U) 7.0 [pH] [facility] Work Phone: Urine sediment bacteria coun t by microscopy (number/high power field)on 01-29-2022 Bacteria LM.HPF (Urine sed) [#/Area] 3 /[HPF] None Seen [facility] Work Phone: Urine specific gravity measu rementon 01-29-2022 Specific gravity (U) [Rel density] 1.010 [facility] Work Phone: Urobilinogen Auto test strip Ql (U)on 01-29-2022 Urobilinogen Ql (U) 1 mg/dl Normal [facility] Work Phone: OBSOLETEon 10-29-2021 OBSOLETE Refill (AGPOB1) ----- NATALIA MARQUEZ ([id number]) 1960 F Date Time Provider Department 10/29/21 COLLIN GARCIA AGPOB1 During your visit today, we recorded the following information about you: Collin Garcia DPM 10/30/2021 2:49 PM Signed Done Thanks Collin Garcia DPM, FACFAS Allergies As of Date: 10/29/2021 Noted Allergy Reaction OXYCODONE 11/30/2015 9 - Itching PAXIL (PAROXETINE HCL) 01/14/2012 5 - Intolerance Comments: Didn't work PENICILLINS 10/15/2006 9 - Itching Comments: Yeast Infections PROZAC (FLUOXETINE HCL) 01/14/2012 5 - Intolerance Comments: Didn't work VICODIN (HYDROCODONE-ACETAMINOPHE *12/18/2017 9 - Itching WELLBUTRIN (BUPROPION HCL) 01/14/2012 1 - Mental Status Change Comments: States became suicidal. Date Reviewed: 03/10/2021 Reviewed by: Collin Garcia - Fully Assessed Reason for Visit: Refill Request [94] Order(s):meloxicam (MOBIC) 15 mg tabletTake 1 tablet by mouth once daily.Disp: 30 tabletRfl: 2 Prescriptions as of 10/30/2021 - meloxicam (MOBIC) 15 mg tablet Take 1 tablet by mouth once daily. - nabumetone (RELAFEN) 750 mg tablet Take 1 tablet by mouth twice daily. - gabapentin (NEURONTIN) 300 mg capsule Take 2 capsules by mouth twice daily. - venlafaxine ER (EFFEXOR XR) 75 mg 24 hr capsule Take 2 capsules by mouth once daily. - aspirin, enteric coated (ECOTRIN LOW STRENGTH) 81 mg EC tablet Take 1 tablet by mouth once daily. - ascorbic acid, vitamin C, (VITAMIN C) 500 mg tablet Take 1 tablet by mouth once daily. - famotidine (PEPCID) 20 mg tablet Take 1 tablet by mouth once daily. - simvastatin (ZOCOR) 40 mg tablet Take 1 tablet by mouth daily at bedtime. - zolpidem (AMBIEN) 10 mg tab TAKE 1 TABLET BY MOUTH AT BEDTIME NEEDED FOR SLEEP. TO LAST 90 DAYS. - hydroCHLOROthiazide (HYDRODIURIL, ESIDRIX) 25 mg tablet Take 1 tablet by mouth once daily. 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] 03/12/2011 Rheumatoid arthritis (HCC) [M06.9] 08/06/2011 Family history of diabetes mellitus [Z83.3] 08/08/2011 Essential hypertension, benign [I10] 11/15/2011 Diarrhea [R19.7] 12/13/2011 Other and unspecified hyperlipidemia [E78.5] 08/11/2012 MRSA (methicillin resistant Staphylococcus ewa*11/26/2015 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] 01/09/2016 Pes planus of left foot [M21.42] 01/09/2016 Posterior tibial tendonitis [M76.829] 01/09/2016 Post-operative state [Z98.890] 03/07/2016 Cellulitis of foot, left [L03.116] 05/08/2016 Laceration of extensor tendon of foot [S96.829A]06/12/2017 06/12/2017 Pre-diabetes [R73.03] 09/04/2017 Left foot drop [M21.372] 11/28/2017 12/19/2017 Anterior tibialis tendonitis of left leg [M76.8*12/19/2017 12/19/2017 Gastrocnemius equinus, left [M21.6X2] 12/19/2017 12/19/2017 Family history of breast cancer [Z80.3] 02/05/2019 Bilateral fibrocystic breast changes [N60.11, N*02/05/2019 Personal history of malignant melanoma [Z85.820]02/05/2019 Fat necrosis (segmental) of breast [N64.1] 02/18/2019 Prescriptions ordered this encounter Disp Refills Start End MELOXICAM 15 MG TABLET 30 t* 2 10/30/2021 Route: ORAL Sig: Take 1 tablet by mouth once daily. Medications Discontinued During This Encounter Prescriptions - meloxicam (MOBIC) 15 mg tablet (Discontinued) take 1 tablet by mouth once daily Encounter Status:Closed by COLLIN GARCIA on 10/30/21 [facility] OBSOLETEon 09-26-2021 OBSOLETE Refill (AGPOB1) ----- NATALIA MARQUEZ ([id number]) 1960 F Date Time Provider Department 09/26/21 COLLIN GARCIAB1 During your visit today, we recorded the following information about you: Collin Garcia DPM 09/28/2021 3:50 PM Signed Done Thanks Collin Garcia DPM, FACFAS Allergies As of Date: 09/26/2021 Noted Allergy Reaction OXYCODONE 11/30/2015 9 - Itching PAXIL (PAROXETINE HCL) 01/14/2012 5 - Intolerance Comments: Didn't work PENICILLINS 10/15/2006 9 - Itching Comments: Yeast Infections PROZAC (FLUOXETINE HCL) 01/14/2012 5 - Intolerance Comments: Didn't work VICODIN (HYDROCODONE-ACETAMINOPHE *12/18/2017 9 - Itching WELLBUTRIN (BUPROPION HCL) 01/14/2012 1 - Mental Status Change Comments: States became suicidal. Date Reviewed: 03/10/2021 Reviewed by: Collin Garcia - Fully Assessed Reason for Visit: Refill Request [94] Order(s):meloxicam (MOBIC) 15 mg tablettake 1 tablet by mouth once dailyDisp: 30 tabletRfl: 2 Prescriptions as of 09/28/2021 - meloxicam (MOBIC) 15 mg tablet take 1 tablet by mouth once daily - nabumetone (RELAFEN) 750 mg tablet Take 1 tablet by mouth twice daily. - gabapentin (NEURONTIN) 300 mg capsule Take 2 capsules by mouth twice daily. - venlafaxine ER (EFFEXOR XR) 75 mg 24 hr capsule Take 2 capsules by mouth once daily. - aspirin, enteric coated (ECOTRIN LOW STRENGTH) 81 mg EC tablet Take 1 tablet by mouth once daily. - ascorbic acid, vitamin C, (VITAMIN C) 500 mg tablet Take 1 tablet by mouth once daily. - famotidine (PEPCID) 20 mg tablet Take 1 tablet by mouth once daily. - simvastatin (ZOCOR) 40 mg tablet Take 1 tablet by mouth daily at bedtime. - zolpidem (AMBIEN) 10 mg tab TAKE 1 TABLET BY MOUTH AT BEDTIME NEEDED FOR SLEEP. TO LAST 90 DAYS. - hydroCHLOROthiazide (HYDRODIURIL, ESIDRIX) 25 mg tablet Take 1 tablet by mouth once daily. 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.20] 03/12/2011 Rheumatoid arthritis (HCC) [M06.9] 08/06/2011 Family history of diabetes mellitus [Z83.3] 08/08/2011 Essential hypertension, benign [I10] 11/15/2011 Diarrhea [R19.7] 12/13/2011 Other and unspecified hyperlipidemia [E78.5] 08/11/2012 MRSA (methicillin resistant Staphylococcus ewa*11/26/2015 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] 01/09/2016 Pes planus of left foot [M21.42] 01/09/2016 Posterior tibial tendonitis [M76.829] 01/09/2016 Post-operative state [Z98.890] 03/07/2016 Cellulitis of foot, left [L03.116] 05/08/2016 Laceration of extensor tendon of foot [S96.829A]06/12/2017 06/12/2017 Pre-diabetes [R73.03] 09/04/2017 Left foot drop [M21.372] 11/28/2017 12/19/2017 Anterior tibialis tendonitis of left leg [M76.8*12/19/2017 12/19/2017 Gastrocnemius equinus, left [M21.6X2] 12/19/2017 12/19/2017 Family history of breast cancer [Z80.3] 02/05/2019 Bilateral fibrocystic breast changes [N60.11, N*02/05/2019 Personal history of malignant melanoma [Z85.820]02/05/2019 Fat necrosis (segmental) of breast [N64.1] 02/18/2019 Prescriptions ordered this encounter Disp Refills Start End MELOXICAM 15 MG TABLET 30 t* 2 09/28/2021 Route: ORAL Sig: take 1 tablet by mouth once daily Medications Discontinued During This Encounter Prescriptions - meloxicam (MOBIC) 15 mg tablet (Discontinued) take 1 tablet by mouth once daily Encounter Status:Closed by COLLIN GARCIA on 09/28/21 [facility] OBSOLETEon 06-14-2021 OBSOLETE Refill (AGPOB1) ----- NATALIA MARQUEZ ([id number]) 1960 F Date Time Provider Department 06/14/21 COLLIN GARCIA AGPOB1 During your visit today, we recorded the following information about you: Collin Garcia DPM 06/15/2021 9:49 AM Signed Done Thanks Collin Garcia DPM, FACFAS Allergies As of Date: 06/14/2021 Noted Allergy Reaction OXYCODONE 11/30/2015 9 - Itching PAXIL (PAROXETINE HCL) 01/14/2012 5 - Intolerance Comments: Didn't work PENICILLINS 10/15/2006 9 - Itching Comments: Yeast Infections PROZAC (FLUOXETINE HCL) 01/14/2012 5 - Intolerance Comments: Didn't work VICODIN (HYDROCODONE-ACETAMINOPHE *12/18/2017 9 - Itching WELLBUTRIN (BUPROPION HCL) 01/14/2012 1 - Mental Status Change Comments: States became suicidal. Date Reviewed: 03/10/2021 Reviewed by: Collin Garcia - Fully Assessed Reason for Visit: Refill Request [94] Order(s):meloxicam (MOBIC) 15 mg tablettake 1 tablet by mouth once dailyDisp: 30 tabletRfl: 2 Prescriptions as of 06/15/2021 - meloxicam (MOBIC) 15 mg tablet take 1 tablet by mouth once daily - nabumetone (RELAFEN) 750 mg tablet Take 1 tablet by mouth twice daily. - gabapentin (NEURONTIN) 300 mg capsule Take 2 capsules by mouth twice daily. - venlafaxine ER (EFFEXOR XR) 75 mg 24 hr capsule Take 2 capsules by mouth once daily. - aspirin, enteric coated (ECOTRIN LOW STRENGTH) 81 mg EC tablet Take 1 tablet by mouth once daily. - ascorbic acid, vitamin C, (VITAMIN C) 500 mg tablet Take 1 tablet by mouth once daily. - famotidine (PEPCID) 20 mg tablet Take 1 tablet by mouth once daily. - simvastatin (ZOCOR) 40 mg tablet Take 1 tablet by mouth daily at bedtime. - zolpidem (AMBIEN) 10 mg tab TAKE 1 TABLET BY MOUTH AT BEDTIME NEEDED FOR SLEEP. TO LAST 90 DAYS. - hydroCHLOROthiazide (HYDRODIURIL, ESIDRIX) 25 mg tablet Take 1 tablet by mouth once daily. - potassium chloride (K-TAB) 10 mEq tablet Take one pill four times daily for two days, then as directed - metoprolol tartrate, short acting, (LOPRESSOR) 25 mg tablet TAKE ONE TABLET BY MOUTH TWICE DAILY - fluorometholone (FML LIQUID FILM) 0.1 % ophthalmic suspension instill one drop in both eyes daily Problem List As Of Date 06/14/2021 Noted Resolved Recurrent major depression in partial remission* Achilles tendinitis [M76.60] 07/17/2009 11/15/2011 Fibromyalgia Syndrome [M79.7] 07/19/2009 Vitamin D Deficiency [E55.9] 10/24/2009 Myopic degeneration [H44.20] 03/12/2011 Rheumatoid arthritis (HCC) [M06.9] 08/06/2011 Family history of diabetes mellitus [Z83.3] 08/08/2011 Essential hypertension, benign [I10] 11/15/2011 Diarrhea [R19.7] 12/13/2011 Other and unspecified hyperlipidemia [E78.5] 08/11/2012 MRSA (methicillin resistant Staphylococcus ewa*11/26/2015 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] 01/09/2016 Pes planus of left foot [M21.42] 01/09/2016 Posterior tibial tendonitis [M76.829] 01/09/2016 Post-operative state [Z98.890] 03/07/2016 Cellulitis of foot, left [L03.116] 05/08/2016 Laceration of extensor tendon of foot [S96.829A]06/12/2017 06/12/2017 Pre-diabetes [R73.03] 09/04/2017 Left foot drop [M21.372] 11/28/2017 12/19/2017 Anterior tibialis tendonitis of left leg [M76.8*12/19/2017 12/19/2017 Gastrocnemius equinus, left [M21.6X2] 12/19/2017 12/19/2017 Family history of breast cancer [Z80.3] 02/05/2019 Bilateral fibrocystic breast changes [N60.11, N*02/05/2019 Personal history of malignant melanoma [Z85.820]02/05/2019 Fat necrosis (segmental) of breast [N64.1] 02/18/2019 Prescriptions ordered this encounter Disp Refills Start End MELOXICAM 15 MG TABLET 30 t* 2 06/15/2021 Route: ORAL Sig: take 1 tablet by mouth once daily Medications Discontinued During This Encounter Prescriptions - meloxicam (MOBIC) 15 mg tablet (Discontinued) Take 1 tablet by mouth once daily. Encounter Status:Closed by COLLIN GARCIA on 06/15/21 Normal [facility] MRI ANKLE WO IV CON LTon MRI ANKLE WO IV CON LT Performed at [facility] APPROVED BY: Joao Billingsley MD MRI LEFT ANKLE WITHOUT IV CONTRAST: CLINICAL INDICATION: Worsening chronic left ankle pain. Multiple foot surgeries. COMPARISON: Left foot radiographs, the most recent 01/16/2017, including 01/08/2016, and MRI left foot study 05/11/2016. Serial images are obtained of left ankle, hindfoot and midfoot in the sagittal plane with T1 weighting and STIR and short and long axis with T1 weighting and fat-saturated proton density weighting without IV contrast. There is degradation of image quality secondary to hindfoot and midfoot susceptibility artifact sequela of previous orthopedic hardware. There is moderate fusiform thickening of the Achilles tendon with posterior calcaneal enthesopathy. The myotendinous junction is not visualized on obtained images. There is intermediate signal within the proximal half of the thickened Achilles tendon. There is no partial or full-thickness Achilles tendon tear. There is plantar calcaneal enthesopathy. There is thickening and intermediate signal change of the medial cord plantar fascia with perifascial edema. There is redemonstration of postoperative changes of the flexure hallucis longus tendon. The flexor hallucis longus tendon above the ankle is again seen extending to the superior margin of an osteotomy defect of the posterior calcaneal body. The posterior tibial and flexor digitorum longus tendons are interrupted crossing the ankle. The presence of os naviculare is noted. The peroneus brevis and longus tendons are uninterrupted crossing the ankle. Tibiotalar articulation is preserved. There are well-corticated ossific structures adjacent to the tip of the medial malleolus. There is no osteochondral defect of the talar dome or sizable ankle effusion. The anterior inferior tibiofibular and posterior inferior tibiofibular ligaments appear intact as does the interosseous ligament. A normal anterior talofibular ligament is not visualized and may be severely attenuated or torn on a chronic basis. There is diffuse thickening and intermediate signal change of the calcaneofibular ligament with intact posterior talofibular ligament fibers. There is intermediate signal change of the deep deltoid ligament fibers without evidence of acute deltoid ligament injury. Subtalar articulations are maintained. There is a small amount of fluid seen along the posterior subtalar joint. There is minimal fluid within the sinus tarsi. There is midfoot arthrosis. There is narrowing and irregularity of articulation between the talus and medial cuneiform bone. There is ankylosis of articulation between the navicular and middle cuneiform bone and narrowing and irregularity of articulation between the navicular and lateral cuneiform bone. There is trace fluid within the first, fourth and fifth tarsometatarsal joints. There is a screw track extending dorsal plantar within the proximal first metatarsal shaft. There is diffuse fatty atrophy of the intrinsic muscles of the foot. IMPRESSION: Degradation of image quality secondary to hindfoot and midfoot susceptibility artifact sequela of previous orthopedic hardware. Diffuse moderate Achilles tendinosis without evidence of acute tendon tear. Plantar calcaneal enthesopathy with findings concerning for plantar fasciitis. Postoperative changes of the flexor hallucis longus tendon and findings of calcaneal osteotomy. Severely attenuated or torn anterior talofibular ligament. Midfoot arthrosis. Diffuse fatty atrophy intrinsic muscles of the foot. Normal [facility] XR CHEST 2V FRONTAL/LATon XR CHEST 2V FRONTAL/LAT * * *Final Repor t* * *DATE OF EXAM: Jul 28 2017 2:21PM HMX [id number] - XR CHEST 2V FRONTAL/LAT / REASON: polyarthralgia * * * * Physician Interpretation * * * *RESULT: EXAMINATION: FRONTAL AND LATERAL CHEST X-RAYS 07/28/2017 2:21 PMClinical History: polyarthralgiaM: [id number]_3Comparison: 10/21/2016RESULT:Lines, Tubes, and Devices: N/ALungs and Pleura: The lungs are clear. No pleural effusion or pneumothorax.Cardiomedias tinal silhouette: Within normal limits.Other: No acute osseous abnormality.--IMPRESSION: NO ACUTE RADIOGRAPHIC ABNORMALITY.Transcribed Using Voice RecognitionTranscribe Date/Time: Jul 28 2017 3:13PDictated by: Andres SILVEIRA examination was interpreted and the report reviewed and electronically signed by: SENA HANNAH MD on Jul 28 2017 3:14PM [id number] [facility] XR HAND/WRIST SURVEY 1V PA B ILon 07-28-2017 XR HAND/WRIST SURVEY 1V PA JOELLE * * *Final Report* * *DATE OF EXAM: Jul 28 2017 2:21PM HMX [id number] - XR HAND/WRIST SURVEY 1V PA JOELLE / REASON: polyarthralgia * * * * Physician Interpretation * * * *RESULT: PA VIEW BILATERAL HANDSCLINICAL: PolyarthralgiaRESULT:LEFT HAND:No significant degenerative changes are seen. There is no acute fracture or osseous erosion. No soft tissue abnormality is identified.RIGHT HAND:No significant degenerative changes are seen. There is no acute fracture or osseous erosion. No soft tissue abnormality is identified.IMPRESSION:Unr emarkable.Transcribed Using Voice RecognitionTranscribe Date/Time: Jul 28 2017 3:37PDictated by: Andres ARCHIBALD examination was interpreted and the report reviewed and electronically signed by: HALINA MONTERO MD on Jul 28 2017 3:40PM [id number] [facility] XR SHOULDER 2V AP/TRUE AP RT on 07-28-2017 XR SHOULDER 2V AP/TRUE AP RT * * *Final Report* * *DATE OF EXAM: Jul 28 2017 2:21PM HMX [id number] - XR SHOULDER 2V AP/TRUE AP RT / REASON: polyarthralgia * * * * Physician Interpretation * * * *RESULT: RIGHT SHOULDER, 2 VIEWSCLINICAL: right shoulder painTECHNIQUE: AP, Grashey views performed.RESULT:The acromioclavicular joint is intact. The glenohumeral joint is maintained. No fracture or subluxation is seen.IMPRESSION:Unremarka ble.Transcribed Using Voice RecognitionTranscribe Date/Time: Jul 28 2017 3:40PDictated by: HALINA MONTERO MDThis examination was interpreted and the report reviewed and electronically signed by: HALINA MONTERO MD on Jul 28 2017 3:41PM [id number] [facility] XR FOOT GENERAL 3V AP/LAT/OB L LEFT [facility] Vital Signs Date Time Vital Sign Value Performing Clinician Mg hernandez 05-19-2025 14:40-0400 Body height 154.[address] Ryan Leyva MD Work Phone: [facility] 05-18-2025 08:34-0400 Body height 154.[address] Maris Bland DO Work Phone: [facility] 05-18-2025 08:34-0400 Body mass index (BMI) [Ratio] 39.9 kg/m2 Dr. Maris Bland DO Work Phone: 8(451)[phone] [address] 05-18-2025 08:34-0400 Body weight 95.[address] Maris Bland DO Work Phone: [facility] 05-18-2025 08:34-0400 Diastolic blood pressure 83 mm[Hg] Dr. Maris Bland DO Work Phone: 4(006)410-802988 [place] [address] 05-18-2025 08:34-0400 Heart rate 93 /min Dr. Maris Bland DO Work Phone: 7(275)[phone] [place] [address] 05-18-2025 08:34-0400 Respiratory rate 18 /min Dr. Maris Bland DO Work Phone: [facility] 05-18-2025 08:34-0400 SaO2% (BldA) [Mass fraction] 95 % Dr. Maris Bland DO Work Phone: [facility] 05-18-2025 08:34-0400 Systolic blood pressure 122 mm[Hg] Dr. Maris Bland DO Work Phone: [facility] 05-04-2025 10:30-0400 Body temperature 98.2 [degF] Dr. Ryan Leyva MD Work Phone: [facility] 05-04-2025 10:30-0400 Diastolic blood pressure 74 mm[Hg] Dr. Ryan Leyva MD Work Phone: [facility] 05-04-2025 10:30-0400 Heart rate 103 /min Dr. Ryan Leyva MD Work Phone: [facility] 05-04-2025 10:30-0400 SaO2% (BldA) [Mass fraction] 97 % Dr. Ryan Leyva MD Work Phone: [facility] 05-04-2025 10:30-0400 Systolic blood pressure 120 mm[Hg] Dr. Ryan Leyva MD Work Phone: [facility] 04-28-2025 08:54-0400 Body mass index (BMI) [Ratio] 40.4 kg/m2 Dr. Ryan Leyva MD Work Phone: [facility] 04-28-2025 08:54-0400 Body weight 97.[address] Ryan Leyva MD Work Phone: [facility] 04-28-2025 08:54-0400 Diastolic blood pressure 84 mm[Hg] Dr. Ryan Leyva MD Work Phone: [facility] 04-28-2025 08:54-0400 Heart rate 90 /min Dr. Ryan Leyva MD Work Phone: [facility] 04-28-2025 08:54-0400 Respiratory rate 16 /min Dr. Ryan Leyva MD Work Phone: [facility] 04-28-2025 08:54-0400 Systolic blood pressure 124 mm[Hg] Dr. Ryan Leyva MD Work Phone: [facility] 04-13-2025 14:33-0400 Body height 154.[address] Ryan Leyva MD Work Phone: [facility] 04-13-2025 13:40-0400 Body mass index (BMI) [Ratio] 35.7 kg/m2 Dr. Ryan Leyva MD Work Phone: [facility] 04-13-2025 13:40-0400 Body temperature 98.2 [degF] Dr. Ryan Leyva MD Work Phone: [facility] 04-13-2025 13:40-0400 Body weight 97.[address] Ryan Leyva MD Work Phone: [facility] 04-13-2025 13:40-0400 Diastolic blood pressure 80 mm[Hg] Dr. Ryan Leyva MD Work Phone: [facility] 04-13-2025 13:40-0400 Heart rate 99 /min Dr. Ryan Leyva MD Work Phone: [facility] 04-13-2025 13:40-0400 Respiratory rate 18 /min Dr. Ryan Leyva MD Work Phone: [facility] 04-13-2025 13:40-0400 SaO2% (BldA) [Mass fraction] 94 % Dr. Ryan Leyva MD Work Phone: [facility] 04-13-2025 13:40-0400 Systolic blood pressure 122 mm[Hg] Dr. Ryan Leyva MD Work Phone: [facility] 04-08-2025 06:34-0400 Body mass index (BMI) [Ratio] 39.6 kg/m2 Dr. Ryan Leyva MD Work Phone: [facility] 04-08-2025 06:34-0400 Body temperature 95.7 [degF] Dr. Ryan Leyva MD Work Phone: [facility] 04-08-2025 06:34-0400 Body weight 95.[address] Ryan Leyva MD Work Phone: [facility] 04-08-2025 06:34-0400 Diastolic blood pressure 89 mm[Hg] Dr. Ryan Leyva MD Work Phone: [facility] 04-08-2025 06:34-0400 Heart rate 86 /min Dr. Ryan Leyva MD Work Phone: [facility] 04-08-2025 06:34-0400 Respiratory rate 20 /min Dr. Ryan Leyva MD Work Phone: [facility] 04-08-2025 06:34-0400 SaO2% (BldA) [Mass fraction] 95 % Dr. Ryan Leyva MD Work Phone: [facility] 04-08-2025 06:34-0400 Systolic blood pressure 124 mm[Hg] Dr. Ryan Leyva MD Work Phone: [facility] 03-31-2025 13:24-0400 Body height 154.[address] Ryan Leyva MD Work Phone: [facility] 03-31-2025 13:24-0400 Body mass index (BMI) [Ratio] 40.2 kg/m2 Dr. Ryan Leyva MD Work Phone: [facility] 03-31-2025 13:24-0400 Body temperature 98 [degF] Dr. Ryan Leyva MD Work Phone: [facility] 03-31-2025 13:24-0400 Body weight 96.[address] Ryan Leyva MD Work Phone: [facility] 03-31-2025 13:24-0400 Diastolic blood pressure 67 mm[Hg] Dr. Ryan Leyva MD Work Phone: [facility] 03-31-2025 13:24-0400 Heart rate 88 /min Dr. Ryan Leyva MD Work Phone: [facility] 03-31-2025 13:24-0400 Respiratory rate 16 /min Dr. Ryan Leyva MD Work Phone: [facility] 03-31-2025 13:24-0400 SaO2% (BldA) [Mass fraction] 97 % Dr. Ryan Leyva MD Work Phone: [facility] 03-31-2025 13:24-0400 Systolic blood pressure 114 mm[Hg] Dr. Ryan Leyva MD Work Phone: [facility] 03-30-2025 14:03-0400 Body mass index (BMI) [Ratio] 40.2 kg/m2 Dr. Ryan Leyva MD Work Phone: [facility] 03-30-2025 14:03-0400 Body weight 96.[address] Ryan Leyva MD Work Phone: [facility] 03-30-2025 14:03-0400 Diastolic blood pressure 80 mm[Hg] Dr. Ryan Leyva MD Work Phone: [facility] 03-30-2025 14:03-0400 Heart rate 87 /min Dr. Ryan Leyva MD Work Phone: [facility] 03-30-2025 14:03-0400 Respiratory rate 16 /min Dr. Ryan Leyva MD Work Phone: [facility] 03-30-2025 14:03-0400 SaO2% (BldA) [Mass fraction] 94 % Dr. Ryan Leyva MD Work Phone: [facility] 03-30-2025 14:03-0400 Systolic blood pressure 109 mm[Hg] Dr. Ryan Leyva MD Work Phone: [facility] 03-02-2025 12:33-0400 Body height 165.[address] Ryan Leyva MD Work Phone: [facility] 03-02-2025 12:33-0400 Body weight 95.[address] Ryan Leyva MD Work Phone: [facility] 03-02-2025 12:33-0400 Heart rate 85 /min Dr. Ryan Leyva MD Work Phone: [facility] 03-02-2025 12:33-0400 SaO2% (BldA) [Mass fraction] 95 % Dr. Ryan Leyva MD Work Phone: [facility] 02-01-2025 14:21-0500 Diastolic blood pressure 76 mm[Hg] Dr. Ryan Leyva MD Work Phone: [facility] 02-01-2025 14:21-0500 Heart rate 91 /min Dr. Ryan Leyva MD Work Phone: [facility] 02-01-2025 14:21-0500 Systolic blood pressure 94 mm[Hg] Dr. Ryan Leyva MD Work Phone: [facility] 02-01-2025 11:04-0500 Body mass index (BMI) [Ratio] 38.6 kg/m2 Dr. Ryan Leyva MD Work Phone: [facility] 02-01-2025 11:04-0500 Body temperature 95.5 [degF] Dr. Ryan Leyva MD Work Phone: [facility] 02-01-2025 11:04-0500 Body weight 105.[address] Ryan Leyva MD Work Phone: [facility] 02-01-2025 11:04-0500 Diastolic blood pressure 81 mm[Hg] Dr. Ryan Leyva MD Work Phone: [facility] 02-01-2025 11:04-0500 Heart rate 76 /min Dr. Ryan Leyva MD Work Phone: [facility] 02-01-2025 11:04-0500 Respiratory rate 20 /min Dr. Ryan Leyva MD Work Phone: [facility] 02-01-2025 11:04-0500 SaO2% (BldA) [Mass fraction] 96 % Dr. Ryan Leyva MD Work Phone: [facility] 02-01-2025 11:04-0500 Systolic blood pressure 113 mm[Hg] Dr. Ryan Leyva MD Work Phone: [facility] 02-01-2025 08:40-0500 Body mass index (BMI) [Ratio] 38.2 kg/m2 Dr. Ryan Leyva MD Work Phone: [facility] 02-01-2025 08:40-0500 Body temperature 97.7 [degF] Dr. Ryan Leyva MD Work Phone: [facility] 02-01-2025 08:40-0500 Body weight 104.[address] Ryan Leyva MD Work Phone: [facility] 02-01-2025 08:40-0500 Respiratory rate 16 /min Dr. Ryan Leyva MD Work Phone: [facility] 02-01-2025 08:40-0500 SaO2% (BldA) [Mass fraction] 95 % Dr. Ryan Leyva MD Work Phone: [facility] 01-22-2025 13:57-0500 Body temperature 97.7 [degF] Dr. Ryan Leyva MD Work Phone: [facility] 01-22-2025 13:57-0500 Diastolic blood pressure 67 mm[Hg] Dr. Ryan Leyva MD Work Phone: [facility] 01-22-2025 13:57-0500 Heart rate 92 /min Dr. Ryan Leyva MD Work Phone: [facility] 01-22-2025 13:57-0500 Respiratory rate 16 /min Dr. Ryan Leyva MD Work Phone: [facility] 01-22-2025 13:57-0500 SaO2% (BldA) [Mass fraction] 93 % Dr. Ryan Leyva MD Work Phone: [facility] 01-22-2025 13:57-0500 Systolic blood pressure 101 mm[Hg] Dr. Ryan Leyva MD Work Phone: [facility] 01-21-2025 13:48-0500 Body weight 110.[address] Ryan Leyva MD Work Phone: [facility] 01-20-2025 19:23-0500 Body mass index (BMI) [Ratio] 40.4 kg/m2 Dr. Ryan Leyva MD Work Phone: [facility] 01-05-2025 13:59-0500 Body mass index (BMI) [Ratio] 39.2 kg/m2 Dr. Ryan Leyva MD Work Phone: [facility] 01-05-2025 13:59-0500 Body temperature 97.8 [degF] Dr. Ryan Leyva MD Work Phone: [facility] 01-05-2025 13:59-0500 Body weight 107.[address] Ryan Leyva MD Work Phone: [facility] 01-05-2025 13:59-0500 Diastolic blood pressure 76 mm[Hg] Dr. Ryan Leyva MD Work Phone: [facility] 01-05-2025 13:59-0500 Heart rate 84 /min Dr. Ryan Leyva MD Work Phone: [facility] 01-05-2025 13:59-0500 Respiratory rate 17 /min Dr. Ryan Leyva MD Work Phone: [facility] 01-05-2025 13:59-0500 SaO2% (BldA) [Mass fraction] 100 % Dr. Ryan Leyva MD Work Phone: [facility] 01-05-2025 13:59-0500 Systolic blood pressure 124 mm[Hg] Dr. Ryan Leyva MD Work Phone: [facility] 11-16-2024 13:29-0500 Body mass index (BMI) [Ratio] 38.1 kg/m2 Dr. Ryan Leyva MD Work Phone: [facility] 11-16-2024 13:29-0500 Body weight 103.[address] Ryan Leyva MD Work Phone: [facility] 11-16-2024 13:29-0500 Diastolic blood pressure 84 mm[Hg] Dr. Ryan Leyva MD Work Phone: [facility] 11-16-2024 13:29-0500 Heart rate 82 /min Dr. Ryan Leyva MD Work Phone: [facility] 11-16-2024 13:29-0500 SaO2% (BldA) [Mass fraction] 94 % Dr. Ryan Leyva MD Work Phone: [facility] 11-16-2024 13:29-0500 Systolic blood pressure 128 mm[Hg] Dr. Ryan Leyva MD Work Phone: [facility] 03-24-2024 13:10-0400 Body height 165.[address] Ryan Leyva Work Phone: [facility] 03-24-2024 13:10-0400 Body mass index (BMI) [Ratio] 36.4 kg/m2 Dr. Ryan Leyva Work Phone: [facility] 03-24-2024 13:10-0400 Body temperature 97 [degF] Dr. Ryan Leyva Work Phone: [facility] 03-24-2024 13:10-0400 Body weight 99.[address] Ryan Leyva Work Phone: [facility] 03-24-2024 13:10-0400 Diastolic blood pressure 88 mm[Hg] Dr. Ryan Leyva Work Phone: [facility] 03-24-2024 13:10-0400 Heart rate 56 /min Dr. Ryan Leyva Work Phone: [facility] 03-24-2024 13:10-0400 Respiratory rate 14 /min Dr. Ryan Leyva Work Phone: [facility] 03-24-2024 13:10-0400 SaO2% (BldA) [Mass fraction] 96 % Dr. Ryan Leyva Work Phone: [facility] 03-24-2024 13:10-0400 Systolic blood pressure 132 mm[Hg] Dr. Ryan Leyva Work Phone: [facility] 03-15-2024 14:34-0400 Body mass index (BMI) [Ratio] 36.6 kg/m2 Dr. Ryan Leyva Work Phone: [facility] 03-15-2024 14:34-0400 Body mass index (BMI) [Ratio] 36.4 kg/m2 Dr. Ryan Leyva Work Phone: [facility] 03-15-2024 14:34-0400 Body weight 100.[address] Ryan Leyva Work Phone: [facility] 03-15-2024 14:34-0400 Body weight 99.[address] Ryan Leyva Work Phone: [facility] 03-15-2024 14:34-0400 Diastolic blood pressure 87 mm[Hg] Dr. Ryan Leyva Work Phone: [facility] 03-15-2024 14:34-0400 Heart rate 76 /min Dr. Ryan Leyva Work Phone: [facility] 03-15-2024 14:34-0400 SaO2% (BldA) [Mass fraction] 94 % Dr. Ryan Leyva Work Phone: [facility] 03-15-2024 14:34-0400 Systolic blood pressure 129 mm[Hg] Dr. Ryan Leyva Work Phone: [facility] 03-11-2024 08:03-0400 Body mass index (BMI) [Ratio] 36.6 kg/m2 Dr. Ryan Leyva Work Phone: [facility] 03-11-2024 08:03-0400 Body temperature 97.8 [degF] Dr. Ryan Leyva Work Phone: [facility] 03-11-2024 08:03-0400 Body weight 99.[address] Ryan Leyva Work Phone: [facility] 03-11-2024 08:03-0400 Diastolic blood pressure 91 mm[Hg] Dr. Ryan Leyva Work Phone: [facility] 03-11-2024 08:03-0400 Heart rate 70 /min Dr. Ryan Leyva Work Phone: [facility] 03-11-2024 08:03-0400 Respiratory rate 20 /min Dr. Ryan Leyva Work Phone: [facility] 03-11-2024 08:03-0400 SaO2% (BldA) [Mass fraction] 95 % Dr. Ryan Leyva Work Phone: [facility] 03-11-2024 08:03-0400 Systolic blood pressure 148 mm[Hg] Dr. Ryan Leyva Work Phone: [facility] 01-21-2024 07:25-0500 Body mass index (BMI) [Ratio] 35.6 kg/m2 Dr. Ryan Leyva Work Phone: [facility] 01-21-2024 07:25-0500 Body temperature 94.8 [degF] Dr. Ryan Leyva Work Phone: [facility] 01-21-2024 07:25-0500 Body weight 97.[address] Ryan Leyva Work Phone: [facility] 01-21-2024 07:25-0500 Diastolic blood pressure 77 mm[Hg] Dr. Ryan Leyva Work Phone: [facility] 01-21-2024 07:25-0500 Heart rate 71 /min Dr. Ryan Leyva Work Phone: [facility] 01-21-2024 07:25-0500 Respiratory rate 20 /min Dr. Ryan Leyva Work Phone: [facility] 01-21-2024 07:25-0500 SaO2% (BldA) [Mass fraction] 97 % Dr. Ryan Leyva Work Phone: [facility] 01-21-2024 07:25-0500 Systolic blood pressure 117 mm[Hg] Dr. Ryan Leyva Work Phone: [facility] 12-22-2023 13:55-0500 Body height 165.[address] Ryan Leyva Work Phone: [facility] 12-22-2023 13:55-0500 Body mass index (BMI) [Ratio] 35.9 kg/m2 Dr. Ryan Leyva Work Phone: [facility] 12-22-2023 13:55-0500 Body temperature 97.4 [degF] Dr. Ryan Leyva Work Phone: [facility] 12-22-2023 13:55-0500 Body weight 97.[address] Ryan Leyva Work Phone: [facility] 12-22-2023 13:55-0500 Diastolic blood pressure 76 mm[Hg] Dr. Ryan Leyva Work Phone: [facility] 12-22-2023 13:55-0500 Heart rate 54 /min Dr. Ryan Leyva Work Phone: [facility] 12-22-2023 13:55-0500 Respiratory rate 16 /min Dr. Ryan Leyva Work Phone: [facility] 12-22-2023 13:55-0500 SaO2% (BldA) [Mass fraction] 94 % Dr. Ryan Leyva Work Phone: [facility] 12-22-2023 13:55-0500 Systolic blood pressure 110 mm[Hg] Dr. Ryan Leyva Work Phone: [facility] 11-11-2023 12:03-0500 Body mass index (BMI) [Ratio] 35.7 kg/m2 Dr. Ryan Leyva Work Phone: [facility] 11-11-2023 12:03-0500 Body weight 97.[address] Ryan Leyva Work Phone: [facility] 11-11-2023 12:03-0500 Diastolic blood pressure 82 mm[Hg] Dr. Ryan Leyva Work Phone: [facility] 11-11-2023 12:03-0500 Heart rate 73 /min Dr. Ryan Leyva Work Phone: [facility] 11-11-2023 12:03-0500 SaO2% (BldA) [Mass fraction] 91 % Dr. Ryan Leyva Work Phone: [facility] 11-11-2023 12:03-0500 Systolic blood pressure 125 mm[Hg] Dr. Ryan Leyva Work Phone: [facility] 11-04-2023 06:21-0500 Body mass index (BMI) [Ratio] 35.2 kg/m2 Dr. Ryan Leyva Work Phone: [facility] 11-04-2023 06:21-0500 Body temperature 95.5 [degF] Dr. Ryan Leyva Work Phone: [facility] 11-04-2023 06:21-0500 Body weight 96.[address] Ryan Leyva Work Phone: [facility] 11-04-2023 06:21-0500 Diastolic blood pressure 90 mm[Hg] Dr. Ryan Leyva Work Phone: [facility] 11-04-2023 06:21-0500 Heart rate 71 /min Dr. Ryan Leyva Work Phone: [facility] 11-04-2023 06:21-0500 Respiratory rate 20 /min Dr. Ryan Leyva Work Phone: [facility] 11-04-2023 06:21-0500 SaO2% (BldA) [Mass fraction] 96 % Dr. Ryan Leyva Work Phone: [facility] 11-04-2023 06:21-0500 Systolic blood pressure 135 mm[Hg] Dr. Ryan Leyva Work Phone: [facility] 10-27-2023 13:18-0500 Body temperature 99 [degF] Dr. Ryan Leyva Work Phone: [facility] 10-27-2023 13:18-0500 Diastolic blood pressure 71 mm[Hg] Dr. Ryan Leyva Work Phone: [facility] 10-27-2023 13:18-0500 Heart rate 85 /min Dr. Ryan Leyva Work Phone: [facility] 10-27-2023 13:18-0500 Respiratory rate 16 /min Dr. Ryan Leyva Work Phone: [facility] 10-27-2023 13:18-0500 SaO2% (BldA) [Mass fraction] 95 % Dr. Ryan Leyva Work Phone: [facility] 10-27-2023 13:18-0500 Systolic blood pressure 117 mm[Hg] Dr. Ryan Leyva Work Phone: [facility] 10-27-2023 11:50-0500 Body height 165.[address] Ryan Leyva Work Phone: [facility] 10-27-2023 11:50-0500 Body mass index (BMI) [Ratio] 35.6 kg/m2 Dr. Ryan Leyva Work Phone: [facility] 10-27-2023 11:50-0500 Body weight [address] Ryan Leyva Work Phone: [facility] 08-06-2023 11:39-0400 Body height 167.[address] Ryan Leyva Work Phone: [facility] 08-06-2023 11:39-0400 Body mass index (BMI) [Ratio] 33.4 kg/m2 Dr. Ryan Leyva Work Phone: [facility] 08-06-2023 11:39-0400 Body temperature 96.9 [degF] Dr. Ryan Leyva Work Phone: [facility] 08-06-2023 11:39-0400 Body weight [address] Ryan Leyva Work Phone: [facility] 08-06-2023 11:39-0400 Diastolic blood pressure 76 mm[Hg] Dr. Ryan Leyva Work Phone: [facility] 08-06-2023 11:39-0400 Heart rate 78 /min Dr. Ryan Leyva Work Phone: [facility] 08-06-2023 11:39-0400 Respiratory rate 18 /min Dr. Ryan Leyva Work Phone: [facility] 08-06-2023 11:39-0400 SaO2% (BldA) [Mass fraction] 96 % Dr. Ryan Leyva Work Phone: [facility] 08-06-2023 11:39-0400 Systolic blood pressure 124 mm[Hg] Dr. Ryan Leyva Work Phone: [facility] 03-21-2023 14:11-0400 Body height 167.[address] Ryan Leyva Work Phone: [facility] 03-21-2023 14:11-0400 Body mass index (BMI) [Ratio] 35 kg/m2 Dr. Ryan Leyva Work Phone: [facility] 03-21-2023 14:11-0400 Body temperature 97.1 [degF] Dr. Ryan Leyva Work Phone: [facility] 03-21-2023 14:11-0400 Body weight 98.[address] Ryan Leyva Work Phone: [facility] 03-21-2023 14:11-0400 Diastolic blood pressure 84 mm[Hg] Dr. Ryan Leyva Work Phone: [facility] 03-21-2023 14:11-0400 Heart rate 88 /min Dr. Ryan Leyva Work Phone: [facility] 03-21-2023 14:11-0400 Respiratory rate 18 /min Dr. Ryan Leyva Work Phone: [facility] 03-21-2023 14:11-0400 SaO2% (BldA) [Mass fraction] 99 % Dr. Ryan Leyva Work Phone: [facility] 03-21-2023 14:11-0400 Systolic blood pressure 108 mm[Hg] Dr. Ryan Leyva Work Phone: [facility] 01-15-2023 13:59-0500 Body height 167.[address] Ryan Leyva Work Phone: [facility] 01-15-2023 13:59-0500 Body mass index (BMI) [Ratio] 34.2 kg/m2 Dr. Ryan Leyva Work Phone: [facility] 01-15-2023 13:59-0500 Body weight 96.[address] Ryan Leyva Work Phone: [facility] 01-15-2023 13:59-0500 Diastolic blood pressure 84 mm[Hg] Dr. Ryan Leyva Work Phone: [facility] 01-15-2023 13:59-0500 Heart rate 78 /min Dr. Ryan Leyva Work Phone: [facility] 01-15-2023 13:59-0500 SaO2% (BldA) [Mass fraction] 91 % Dr. Ryan Leyva Work Phone: [facility] 01-15-2023 13:59-0500 Systolic blood pressure 124 mm[Hg] Dr. Ryan Leyva Work Phone: [facility] 12-26-2022 14:12-0500 Body height 167.[address] Ryan Leyva Work Phone: [facility] 12-26-2022 14:12-0500 Body mass index (BMI) [Ratio] 34.5 kg/m2 Dr. Ryan Leyva Work Phone: [facility] 12-26-2022 14:12-0500 Body temperature 97.9 [degF] Dr. Ryan Leyva Work Phone: [facility] 12-26-2022 14:12-0500 Body weight 97.[address] Ryan Leyva Work Phone: [facility] 12-26-2022 14:12-0500 Diastolic blood pressure 64 mm[Hg] Dr. Ryan Leyva Work Phone: [facility] 12-26-2022 14:12-0500 Heart rate 78 /min Dr. Ryan Leyva Work Phone: [facility] 12-26-2022 14:12-0500 Respiratory rate 16 /min Dr. Ryan Leyva Work Phone: [facility] 12-26-2022 14:12-0500 SaO2% (BldA) [Mass fraction] 98 % Dr. Ryan Leyva Work Phone: [facility] 12-26-2022 14:12-0500 Systolic blood pressure 106 mm[Hg] Dr. Ryan Leyva Work Phone: [facility] 12-16-2022 09:59-0500 Body height 167.[address] Ryan Leyva Work Phone: [facility] 12-16-2022 09:59-0500 Body mass index (BMI) [Ratio] 34.4 kg/m2 Dr. Ryan Leyva Work Phone: [facility] 12-16-2022 09:59-0500 Body temperature 98.2 [degF] Dr. Ryan Leyva Work Phone: [facility] 12-16-2022 09:59-0500 Body weight 96.[address] Ryan Leyva Work Phone: [facility] 12-16-2022 09:59-0500 Diastolic blood pressure 64 mm[Hg] Dr. Ryan Leyva Work Phone: [facility] 12-16-2022 09:59-0500 Heart rate 64 /min Dr. Ryan Leyva Work Phone: [facility] 12-16-2022 09:59-0500 Respiratory rate 16 /min Dr. Ryan Leyva Work Phone: [facility] 12-16-2022 09:59-0500 SaO2% (BldA) [Mass fraction] 95 % Dr. Ryan Leyva Work Phone: [facility] 12-16-2022 09:59-0500 Systolic blood pressure 106 mm[Hg] Dr. Ryan Leyva Work Phone: [facility] 11-05-2022 13:26-0500 Body height 167.[address] Ryan Leyva Work Phone: [facility] Work Phone: 11-05-2022 13:26-0500 Body mass index (BMI) [Ratio] 38 kg/m2 Dr. Ryan Leyva Work Phone: [facility] 11-05-2022 13:26-0500 Body weight 107.[address] Ryan Leyva Work Phone: [facility] 11-05-2022 13:26-0500 Diastolic blood pressure 80 mm[Hg] Dr. Ryan Leyva Work Phone: [facility] 11-05-2022 13:26-0500 Heart rate 74 /min Dr. Ryan Leyva Work Phone: [facility] 11-05-2022 13:26-0500 SaO2% (BldA) [Mass fraction] 94 % Dr. Ryan Leyva Work Phone: [facility] 11-05-2022 13:26-0500 Systolic blood pressure 118 mm[Hg] Dr. Ryan Leyva Work Phone: [facility] 10-22-2022 15:20-0500 Body temperature 98 [degF] Dr. Ryan Leyva Work Phone: [facility] 10-22-2022 15:20-0500 Diastolic blood pressure 77 mm[Hg] Dr. Ryan Leyva Work Phone: [facility] 10-22-2022 15:20-0500 Heart rate 74 /min Dr. Ryan Leyva Work Phone: [facility] 10-22-2022 15:20-0500 Respiratory rate 16 /min Dr. Ryan Leyva Work Phone: [facility] 10-22-2022 15:20-0500 SaO2% (BldA) [Mass fraction] 100 % Dr. Ryan Leyva Work Phone: [facility] 10-22-2022 15:20-0500 Systolic blood pressure 102 mm[Hg] Dr. Ryan Leyva Work Phone: [facility] 10-22-2022 13:50-0500 Body height 167.[address] Ryan Leyva Work Phone: [facility] Work Phone: 10-22-2022 13:50-0500 Body mass index (BMI) [Ratio] 34.1 kg/m2 Dr. Ryan Leyva Work Phone: [facility] 10-22-2022 13:50-0500 Body weight [address] Ryan Leyva Work Phone: [facility] 09-19-2022 13:45-0400 Body height 167.[address] Ryan Leyva Work Phone: [facility] Work Phone: 09-19-2022 13:45-0400 Body mass index (BMI) [Ratio] 34.5 kg/m2 Dr. Ryan Leyva Work Phone: [facility] 09-19-2022 13:45-0400 Body temperature 96.8 [degF] Dr. Ryan Leyva Work Phone: [facility] 09-19-2022 13:45-0400 Body weight 97.[address] Ryan Leyva Work Phone: [facility] 09-19-2022 13:45-0400 Diastolic blood pressure 68 mm[Hg] Dr. Ryan Leyva Work Phone: [facility] 09-19-2022 13:45-0400 Heart rate 74 /min Dr. Ryan Leyva Work Phone: [facility] 09-19-2022 13:45-0400 Respiratory rate 16 /min Dr. Ryan Leyva Work Phone: [facility] 09-19-2022 13:45-0400 SaO2% (BldA) [Mass fraction] 95 % Dr. Ryan Leyva Work Phone: [facility] 09-19-2022 13:45-0400 Systolic blood pressure 102 mm[Hg] Dr. Ryan Leyva Work Phone: [facility] 07-16-2022 14:09-0400 Body height 167.[address] Ryan Leyva Work Phone: [facility] Work Phone: 07-16-2022 14:09-0400 Body mass index (BMI) [Ratio] 35.3 kg/m2 Dr. Ryan Leyva Work Phone: [facility] Work Phone: 07-16-2022 14:09-0400 Body weight 99.[address] Ryan Leyva Work Phone: [facility] Work Phone: 07-16-2022 14:09-0400 Diastolic blood pressure 80 mm[Hg] Dr. Ryan Levya Work Phone: [facility] Work Phone: 07-16-2022 14:09-0400 Heart rate 69 /min Dr. Ryan Leyva Work Phone: [facility] Work Phone: 07-16-2022 14:09-0400 SaO2% (BldA) [Mass fraction] 92 % Dr. Ryan Leyva Work Phone: [facility] Work Phone: 07-16-2022 14:09-0400 Systolic blood pressure 116 mm[Hg] Dr. Ryan Leyva Work Phone: [facility] Work Phone: 06-12-2022 13:43-0400 Body height 167.[address] Ryan Leyva Work Phone: [facility] Work Phone: 06-12-2022 13:43-0400 Body mass index (BMI) [Ratio] 36 kg/m2 Dr. Ryan Leyva Work Phone: [facility] Work Phone: 06-12-2022 13:43-0400 Body weight 101.[address] Ryan Leyva Work Phone: [facility] Work Phone: 06-06-2022 14:11-0400 Body mass index (BMI) [Ratio] 35.5 kg/m2 Dr. Ryan Leyva Work Phone: [facility] Work Phone: 06-06-2022 14:11-0400 Body temperature 96.5 [degF] Dr. Ryan Leyva Work Phone: [facility] Work Phone: 06-06-2022 14:11-0400 Body weight 99.[address] Ryan Leyva Work Phone: [facility] Work Phone: 06-06-2022 14:11-0400 Diastolic blood pressure 84 mm[Hg] Dr. Ryan Leyva Work Phone: [facility] Work Phone: 06-06-2022 14:11-0400 Heart rate 98 /min Dr. Ryan Leyva Work Phone: [facility] Work Phone: 06-06-2022 14:11-0400 Respiratory rate 18 /min Dr. Ryna Leyva Work Phone: [facility] Work Phone: 06-06-2022 14:11-0400 SaO2% (BldA) [Mass fraction] 99 % Dr. Ryan Leyva Work Phone: [facility] Work Phone: 06-06-2022 14:11-0400 Systolic blood pressure 120 mm[Hg] Dr. Ryan Leyva Work Phone: [facility] Work Phone: 05-20-2022 14:34-0400 Body height 167.[address] Ryan Leyva Work Phone: [facility] Work Phone: 05-20-2022 14:34-0400 Body mass index (BMI) [Ratio] 36.1 kg/m2 Dr. Ryan Leyva Work Phone: [facility] Work Phone: 05-20-2022 14:34-0400 Body weight 101.[address] Ryan Leyva Work Phone: [facility] Work Phone: 05-20-2022 14:34-0400 Diastolic blood pressure 96 mm[Hg] Dr. Ryan Leyva Work Phone: [facility] Work Phone: 05-20-2022 14:34-0400 Heart rate 75 /min Dr. Ryan Leyva Work Phone: [facility] Work Phone: 05-20-2022 14:34-0400 SaO2% (BldA) [Mass fraction] 93 % Dr. Ryan Leyva Work Phone: [facility] Work Phone: 05-20-2022 14:34-0400 Systolic blood pressure 147 mm[Hg] Dr. Ryan Leyva Work Phone: [facility] Work Phone: 05-01-2022 11:33-0400 Body temperature 98.2 [degF] Dr. Ryan Leyva Work Phone: [facility] Work Phone: 05-01-2022 11:33-0400 Diastolic blood pressure 80 mm[Hg] Dr. Ryan Leyva Work Phone: [facility] Work Phone: 05-01-2022 11:33-0400 Heart rate 63 /min Dr. Ryan Leyva Work Phone: [facility] Work Phone: 05-01-2022 11:33-0400 Respiratory rate 16 /min Dr. Ryan Leyva Work Phone: [facility] Work Phone: 05-01-2022 11:33-0400 SaO2% (BldA) [Mass fraction] 95 % Dr. Ryan Leyva Work Phone: [facility] Work Phone: 05-01-2022 11:33-0400 Systolic blood pressure 119 mm[Hg] Dr. Ryan Leyva Work Phone: [facility] Work Phone: 05-01-2022 09:40-0400 Body height 167.[address] Ryan Leyva Work Phone: [facility] Work Phone: 05-01-2022 09:40-0400 Body mass index (BMI) [Ratio] 35.9 kg/m2 Dr. Ryan Leyva Work Phone: [facility] Work Phone: 05-01-2022 09:40-0400 Body weight [address] Ryan Leyva Work Phone: [facility] Work Phone: 04-18-2022 08:29-0400 Body temperature 96.5 [degF] Dr. Ryan Leyva Work Phone: [facility] Work Phone: 04-18-2022 08:29-0400 Diastolic blood pressure 83 mm[Hg] Dr. Ryan Leyva Work Phone: [facility] Work Phone: 04-18-2022 08:29-0400 Heart rate 69 /min Dr. Ryan Leyva Work Phone: [facility] Work Phone: 04-18-2022 08:29-0400 Respiratory rate 16 /min Dr. Ryan Leyva Work Phone: [facility] Work Phone: 04-18-2022 08:29-0400 SaO2% (BldA) [Mass fraction] 96 % Dr. Ryan Leyva Work Phone: [facility] Work Phone: 04-18-2022 08:29-0400 Systolic blood pressure 124 mm[Hg] Dr. Ryan Leyva Work Phone: [facility] Work Phone: 04-18-2022 08:29-0400 Body temperature 96.5 [degF] Dr. Ryan Leyva Work Phone: [facility] Work Phone: 04-18-2022 08:29-0400 Diastolic blood pressure 83 mm[Hg] Dr. Ryan Leyva Work Phone: [facility] Work Phone: 04-18-2022 08:29-0400 Heart rate 69 /min Dr. Ryan Leyva Work Phone: [facility] Work Phone: 04-18-2022 08:29-0400 Respiratory rate 16 /min Dr. Ryan Leyva Work Phone: [facility] Work Phone: 04-18-2022 08:29-0400 SaO2% (BldA) [Mass fraction] 96 % Dr. Ryan Leyva Work Phone: [facility] Work Phone: 04-18-2022 08:29-0400 Systolic blood pressure 124 mm[Hg] Dr. Ryan Leyva Work Phone: [facility] Work Phone: 04-08-2022 13:59-0400 Body mass index (BMI) [Ratio] 37.3 kg/m2 Dr. Ryan Leyva Work Phone: [facility] Work Phone: 04-08-2022 13:59-0400 Body weight 104.[address] Ryan Leyva Work Phone: [facility] Work Phone: 04-08-2022 13:59-0400 Diastolic blood pressure 85 mm[Hg] Dr. Ryan Leyva Work Phone: [facility] Work Phone: 04-08-2022 13:59-0400 Heart rate 73 /min Dr. Ryan Leyva Work Phone: [facility] Work Phone: 04-08-2022 13:59-0400 SaO2% (BldA) [Mass fraction] 94 % Dr. Ryan Leyva Work Phone: [facility] Work Phone: 04-08-2022 13:59-0400 Systolic blood pressure 125 mm[Hg] Dr. Ryan Leyva Work Phone: [facility] Work Phone: 04-08-2022 13:59-0400 Body height 167.[address] Ryan Leyva Work Phone: [facility] Work Phone: 04-08-2022 13:59-0400 Body mass index (BMI) [Ratio] 37.3 kg/m2 Dr. Ryan Leyva Work Phone: [facility] Work Phone: 04-08-2022 13:59-0400 Body weight 104.[address] Ryan Leyva Work Phone: [facility] Work Phone: 04-08-2022 13:59-0400 Diastolic blood pressure 85 mm[Hg] Dr. Ryan Leyva Work Phone: [facility] Work Phone: 04-08-2022 13:59-0400 Heart rate 73 /min Dr. Ryan Leyva Work Phone: [facility] Work Phone: 04-08-2022 13:59-0400 SaO2% (BldA) [Mass fraction] 94 % Dr. Ryan Leyva Work Phone: [facility] Work Phone: 04-08-2022 13:59-0400 Systolic blood pressure 125 mm[Hg] Dr. Ryan Leyva Work Phone: [facility] Work Phone: 04-04-2022 13:47-0400 Body height 166.4 cm Collin Garcia DPM Work Phone: [facility] 04-04-2022 13:47-0400 Body weight 98.43 kg Collin Garcia DPM Work Phone: [facility] 04-04-2022 13:47-0400 Respiratory rate 18 /min Collin Garcia DPM Work Phone: [facility] 02-26-2022 11:04-0400 Body mass index (BMI) [Ratio] 36.4 kg/m2 Dr. Ryan Leyva Work Phone: [facility] Work Phone: 02-26-2022 11:04-0400 Body temperature 95.7 [degF] Dr. Ryan Leyva Work Phone: [facility] Work Phone: 02-26-2022 11:04-0400 Body weight 102.[address] Ryan Leyva Work Phone: [facility] Work Phone: 02-26-2022 11:04-0400 Diastolic blood pressure 80 mm[Hg] Dr. Ryan Leyva Work Phone: [facility] Work Phone: 02-26-2022 11:04-0400 Heart rate 82 /min Dr. Ryan Leyva Work Phone: [facility] Work Phone: 02-26-2022 11:04-0400 Respiratory rate 16 /min Dr. Ryan Leyva Work Phone: [facility] Work Phone: 02-26-2022 11:04-0400 SaO2% (BldA) [Mass fraction] 99 % Dr. Ryan Leyva Work Phone: [facility] Work Phone: 02-26-2022 11:04-0400 Systolic blood pressure 110 mm[Hg] Dr. Ryan Leyva Work Phone: [facility] Work Phone: 02-26-2022 11:04-0400 Body height 167.[address] Ryan Leyva Work Phone: [facility] Work Phone: 02-26-2022 11:04-0400 Body mass index (BMI) [Ratio] 36.4 kg/m2 Dr. Ryan Leyva Work Phone: [facility] Work Phone: 02-26-2022 11:04-0400 Body temperature 95.7 [degF] Dr. Ryan Leyva Work Phone: [facility] Work Phone: 02-26-2022 11:04-0400 Body weight 102.[address] Ryan Leyva Work Phone: [facility] Work Phone: 02-26-2022 11:04-0400 Diastolic blood pressure 80 mm[Hg] Dr. Ryan Leyva Work Phone: [facility] Work Phone: 02-26-2022 11:04-0400 Heart rate 82 /min Dr. Ryan Leyva Work Phone: [facility] Work Phone: 02-26-2022 11:04-0400 Respiratory rate 16 /min Dr. Ryan Leyva Work Phone: [facility] Work Phone: 02-26-2022 11:04-0400 SaO2% (BldA) [Mass fraction] 99 % Dr. Ryan Leyva Work Phone: [facility] Work Phone: 02-26-2022 11:04-0400 Systolic blood pressure 110 mm[Hg] Dr. Ryan Leyva Work Phone: [facility] Work Phone: 01-29-2022 10:15-0500 Body mass index (BMI) [Ratio] 36.1 kg/m2 Dr. Ryan Leyva Work Phone: [facility] Work Phone: 01-29-2022 10:15-0500 Body temperature 97.1 [degF] Dr. Ryan Leyva Work Phone: [facility] Work Phone: 01-29-2022 10:15-0500 Body weight 101.[address] Ryan Leyva Work Phone: [facility] Work Phone: 01-29-2022 10:15-0500 Diastolic blood pressure 80 mm[Hg] Dr. Ryan Leyva Work Phone: [facility] Work Phone: 01-29-2022 10:15-0500 Heart rate 80 /min Dr. Ryan Leyva Work Phone: [facility] Work Phone: 01-29-2022 10:15-0500 Respiratory rate 16 /min Dr. Ryan Leyva Work Phone: [facility] Work Phone: 01-29-2022 10:15-0500 SaO2% (BldA) [Mass fraction] 97 % Dr. Ryan Leyva Work Phone: [facility] Work Phone: 01-29-2022 10:15-0500 Systolic blood pressure 116 mm[Hg] Dr. Ryan Leyva Work Phone: [facility] Work Phone: Encounters Encounter Date Encounter Type Care Provider Facility Start: 11-02-2025 ambulatory Casey Friend Facility :[facility] Start: 06-29-2025 ambulatory Zoraida Patricio Facili ty:[facility] Start: 06-23-2025 ambulatory Latesha Craig Facility:[facility] Start: 05-18-2025 End: 05-18-[address] Ryan Leyva MD Work Phone: [facility] Work Phone: Start: 05-18-2025 End: 05-18-2025 Dr. Ryan Leyva MD -Laboratory Work Phone: Start: 05-18-2025 End: 05-18-2025 SIZING MACHINE TENDER Zoraida Patricio -[facility] Work Phone: Start: 05-18-2025 End: 05-18-[address] Maris Bland DO Work Phone: [facility] Work Phone: Start: 05-18-2025 End: 05-18-2025 ambulatory Ryan Leyva Facility:[facility] Start: 05-04-2025 End: 05-04-2025 Johann Tesfaye PA -[facility] Work Phone: Start: 05-04-2025 End: 05-04-[address] Ryan Leyva MD Work Phone: [facility] Work Phone: Start: 04-29-2025 Javi Almendarez -[facility] Work Phone: Start: 04-29-2025 ambulatory Javi Almendarez Facility :[facility] Start: 04-28-2025 End: 04-28-[address] Latesha Srinivasan MD [facility] Start: 04-28-2025 End: 04-28-2025 Dr. Latesha Srinivasan MD -[facility] Work Phone: Start: 04-28-2025 End: 04-28-[address] Ryan Leyva MD Work Phone: [facility] Work Phone: Start: 04-18-2025 End: 04-18-2025 BIM NURSE -[facility] Work Phone: Start: 04-18-2025 End: 04-18-[address] Ryan Leyva MD Work Phone: [facility] Work Phone: Start: 04-13-2025 End: 04-13-2025 Dr. Ryan Leyva MD -[facility] Work Phone: Start: 04-13-2025 End: 04-13-[address] Ryan Leyva MD Work Phone: [facility] Work Phone: Start: 04-13-2025 End: 04-13-2025 ambulatory Ryan Levya Facility:[facility] Start: 04-08-2025 End: 04-08-2025 SIZING MACHINE TENDER Zoraida Patricio -[facility] Work Phone: Start: 04-08-2025 End: 04-08-2025 ambulatory Zoraida Patricio Facility:[facility] Start: 03-31-2025 End: 03-31-2025 Dr. Joselito Bhandari MD -[facility] Work Phone: Start: 03-31-2025 End: 03-31-2025 ambulatory Ryan Leyva Facility:[facility] Start: 03-30-2025 End: 03-30-2025 Dr. Cristian Perales MD -[facility] Work Phone: Start: 03-30-2025 End: 03-30-2025 ambulatory [place] Leyva [place] [place]: 03-17-2025 End: 03-17-2025 SIZING MACHINE TENDER Zoraida Patricio -[facility] Services/Neurology Work Phone: Start: 03-17-2025 End: 03-17-[address] Ryan Leyva MD Work Phone: [facility] Work Phone: Start: 03-17-2025 End: 03-17-2025 ambulatory Zoraida Patricio [place] Start: 03-09-2025 ambulatory Zoraida Patricio [place]ili [place] Start: 03-09-2025 Dr. Kip Ortiz DO -[facility] Start: 03-02-2025 End: 03-02-[address] Ryan Leyva MD Work Phone: [facility] Work Phone: Start: 03-02-2025 End: 03-02-2025 SIZING MACHINE TENDER Zoraida Patricio -Pulmonary Services/Neurology Work Phone: Start: 03-02-2025 End: 03-02-2025 ambulatory Zoraida Patricio Facility:[facility] Start: 02-09-2025 End: 02-09-2025 Dr. Cristian Perales MD -Physical Therapy Work Phone: Start: 02-09-2025 End: 02-09-[address] Ryan Leyva MD Work Phone: [facility] Work Phone: Start: 02-03-2025 End: 02-03-2025 SIZING MACHINE TENDER Zoraida Patricio -Sleep Lab Work Phone: Start: 02-03-2025 End: 02-03-2025 ambulatory Zoraida Patricio Facility:[facility] Start: 02-01-2025 End: 02-01-2025 SIZING MACHINE TENDER Zoraida Patricio -[place] [facility] Work Phone: Start: 02-01-2025 End: 02-01-2025 ambulatory Efewongbe Oleapurvae Facility:[facility] Start: 02-01-2025 End: 02-01-2025 Dr. Joselito Bhandari MD -[place] [facility] Work Phone: Start: 02-01-2025 End: 02-01-2025 ambulatory Efewongbe Oleapurvae Facility:[facility] Start: 01-22-2025 Dr. Cristian Perales MD -[facility] Work Phone: Start: 01-21-2025 Dr. Cristian Perales MD -[facility] Work Phone: Start: 01-20-2025 ambulatory Ramila Chow [facility] Start: 01-20-2025 End: 01-22-2025 Evaluation and management of inpatient Ramila Chow Facility:[facility] Start: 01-20-2025 End: 01-22-2025 Dr. Cristian Perales MD -[facility] Work Phone: Start: 01-05-2025 End: 01-05-2025 Dr. Ryan Leyva MD -[place] [facility] Work Phone: Start: 01-05-2025 End: 01-05-2025 ambulatory Efestrellitaongbe Whitneye Facility:[facility] Start: 12-24-2024 ambulatory Joselito Bhandari Facilit y:[facility] Start: 12-10-2024 End: 12-10-2024 Dr. Ryan Leyva MD -[facility] Work Phone: Start: 12-10-2024 End: 12-10-2024 ambulatory Efewongbe Oleapurvae Facility:[facility] Start: 12-03-2024 ambulatory Efewongbe Oleghe Facili ty:[facility] Start: 11-16-2024 End: 11-16-2024 Dr. Cristian Perales MD -[place] [facility] Work Phone: Start: 11-16-2024 End: 11-16-2024 ambulatory Cristian Perales Facility:[facility] Start: 10-26-2024 End: 10-26-2024 ambulatory Casey Melina Facility:[facility] Start: 10-21-2024 End: 10-21-2024 ambulatory Efewongbe Oleghe Facility:[facility] Start: 10-14-2024 End: 10-14-2024 ambulatory Efewongbe Oleghe Facility:[facility] Start: 10-12-2024 End: 10-12-2024 ambulatory Efewongbe Oleghe Facility:[facility] Start: 10-12-2024 ambulatory Efewongbe Oleghe Facili ty:[facility] Start: 10-04-2024 End: 10-04-2024 ambulatory Efewongbe Oleghe Facility:[facility] Start: 07-29-2024 End: 07-29-2024 ambulatory Rogers MUIR Facility:[facility] Start: 07-29-2024 End: 07-29-2024 ambulatory Rogers MUIR Facility:[facility] Start: 07-26-2024 End: 07-26-2024 ambulatory Efewongbe Oleghe Facility:[facility] Start: 07-16-2024 End: 07-16-2024 ambulatory Efewongbe Oleghe Facility:[facility] Start: 07-12-2024 ambulatory Efewongbe Oleghe Facili ty:[facility] Start: 07-08-2024 End: 07-08-2024 ambulatory Efewongbe Oleghe Facility:[facility] Start: 06-17-2024 End: 06-17-2024 ambulatory Efewongbe Oleghe Facility:[facility] Start: 04-06-2024 End: 04-06-[address] Ryan Leyva Work Phone: [facility] Work Phone: Start: 04-06-2024 End: 04-06-2024 Dr. Ryan Leyva Work Phone: [facility]-Laboratory Work Phone: Start: 03-24-2024 End: 03-24-[address] Ryan Leyva Work Phone: [facility] Work Phone: Start: 03-24-2024 End: 03-24-2024 Dr. Ryan Leyva Work Phone: [facility] Work Phone: Start: 03-16-2024 End: 03-16-2024 Dr. Ryan Leyva Work Phone: [facility] Work Phone: Start: 03-15-2024 End: 03-15-2024 Dr. Ryan Leyva Work Phone: [facility] Work Phone: Start: 03-11-2024 End: 03-11-2024 Dr. Ryan Leyva Work Phone: [facility] Work Phone: Start: 01-21-2024 End: 01-21-2024 Dr. Ryan Leyva Work Phone: [facility] Work Phone: Start: 01-09-2024 End: 01-09-[address] Ryan Leyva Work Phone: [facility] Work Phone: Start: 01-09-2024 End: 01-09-[address] Ryan Leyva Work Phone: [facility]-Laboratory, Specimen Work Phone: Start: 01-09-2024 End: 01-09-2024 Dr. Ryan Leyva Work Phone: [facility]-Laboratory, Specimen Work Phone: Start: 12-22-2023 End: 12-22-[address] Ryan Leyva Work Phone: [facility] Work Phone: Start: 12-22-2023 End: 12-22-[address] Ryan Leyva Work Phone: [facility] Work Phone: Start: 12-22-2023 End: 12-22-2023 Dr. Ryan Leyva Work Phone: [facility] Work Phone: Start: 11-11-2023 End: 11-11-[address] Ryan Leyva Work Phone: [facility] Work Phone: Start: 11-04-2023 End: 11-04-[address] Ryan Leyva Work Phone: [facility]-Pulmonary Medicine [facility] Work Phone: Start: 10-27-2023 Non-patient / Non-visit Dr. Ryan Leyva Work Phone: [facility] Start: 10-27-2023 End: 10-27-2023 Admission to same day surgery center Dr. Ryan Leyva Work Phone: [facility]-Endoscopy Work Phone: Start: 10-27-2023 End: 10-27-[address] Ryan Leyva Work Phone: [facility] Work Phone: Start: 10-17-2023 End: 10-17-[address] Ryan Leyva Work Phone: [facility] Work Phone: Start: 08-21-2023 Non-patient / Non-visit Dr. Ryan Leyva Work Phone: [facility] Start: 08-20-2023 End: 08-20-[address] Ryan Leyva Work Phone: [facility] Work Phone: Start: 08-20-2023 End: 08-20-[address] Ryan Leyva Work Phone: [facility]-Pulmonary Services/Neurology Work Phone: Start: 08-06-2023 End: 08-06-[address] Ryan Leyva Work Phone: [facility] Work Phone: Start: 08-06-2023 End: 08-06-[address] Ryan Leyva Work Phone: [facility] Work Phone: Start: 03-21-2023 End: 03-21-[address] Ryan Leyva Work Phone: [facility] Work Phone: Start: 03-21-2023 End: 03-21-[address] Ryan Leyva Work Phone: [facility] Start: 03-10-2023 End: 03-11-[address] EDISON HERRERA MD Facility:[facility] Start: 02-03-2023 End: 02-03-[address] Ryan Leyva Work Phone: [facility] Work Phone: Start: 02-03-2023 End: 02-03-[address] Ryan Leyva Work Phone: [facility] Start: 01-15-2023 End: 01-15-[address] Ryan Leyva Work Phone: [facility] Start: 01-03-2023 End: 01-03-[address] Ryan Leyva Work Phone: [facility] Start: 12-26-2022 End: 12-26-[address] Ryan Leyva Work Phone: [facility] Start: 12-26-2022 End: 12-26-[address] Ryan Leyva Work Phone: [facility] Work Phone: Start: 12-26-2022 End: 12-26-[address] Ryan Leyva Work Phone: [facility] Start: 12-20-2022 Non-patient / Non-visit Dr. Ryan Leyva Work Phone: [facility] Start: 12-20-2022 End: 12-20-[address] Ryan Leyva Work Phone: [facility] Work Phone: Start: 12-20-2022 End: 12-20-[address] Ryan Leyva Work Phone: [facility]-Cardiovascular Services Start: 12-16-2022 End: 12-16-[address] Ryan Leyva Work Phone: [facility] Start: 12-11-2022 End: 12-11-[address] Ryan Leyva Work Phone: [facility] Work Phone: Start: 12-11-2022 End: 12-11-[address] Ryan Leyva Work Phone: [facility]-Nuclear Medicine, [facility] Start: 11-15-2022 ambulatory Collin woo DPNhung Work Phone: [facility] Comment on above: No subject Start: 11-11-2022 End: 11-11-[address] Ryan Leyva Work Phone: [facility] Work Phone: Start: 11-11-2022 End: 11-11-[address] Ryan Leyva Work Phone: [facility]-Laboratory, Specimen Start: 11-05-2022 End: 11-05-[address] Ryan Leyva Work Phone: [facility] Work Phone: Start: 11-05-2022 End: 11-05-[address] Ryan Leyva Work Phone: [facility] Start: 10-22-2022 Non-patient / Non-visit Dr. Ryan Leyva Work Phone: [facility] Start: 10-22-2022 End: 10-22-2022 Admission to same day surgery center Dr. Ryan Leyva Work Phone: [facility]-Endoscopy Start: 10-22-2022 End: 10-22-[address] Ryan Leyva Work Phone: [facility] Work Phone: Start: 10-11-2022 End: 10-11-[address] Ryan Leyva Work Phone: [facility] Work Phone: Start: 10-11-2022 End: 10-11-[address] Ryan Leyva Work Phone: [facility]-Physical Therapy Start: 09-19-2022 End: 09-19-[address] Ryan Leyva Work Phone: [facility] Start: 08-13-2022 End: 08-13-[address] Ryan Leyva Work Phone: [facility] Work Phone: Start: 08-13-2022 End: 08-13-[address] Ryan Leyva Work Phone: [facility] Start: 07-16-2022 End: 07-16-[address] Ryan Leyva Work Phone: [facility] Start: 07-03-2022 End: 07-03-[address] Ryan Leyva Work Phone: [facility]-Outpatient Breast Imaging Start: 06-12-2022 End: 06-12-[address] Ryan Leyva Work Phone: [facility] Start: 06-06-2022 End: 06-06-[address] Ryan Leyva Work Phone: [facility] Start: 05-31-2022 End: 05-31-[address] Ryan Leyva Work Phone: [facility] Start: 05-22-2022 Non-patient / Non-visit Dr. Ryan Leyva Work Phone: [facility] Start: 05-20-2022 End: 05-20-[address] Ryan Cope Phone: [facility]-Laboratory Start: 05-20-2022 End: 05-20-[address] Ryan Leyva Work Phone: [facility] Start: 05-01-2022 Non-patient / Non-visit Dr. Ryan Leyva Work Phone: [facility] Start: 05-01-2022 End: 05-01-2022 Admission to same day surgery center Dr. Ryan Leyva Work Phone: [facility]-Endoscopy Start: 04-24-2022 ambulatory Collin woo DPM Work Phone: [facility] Comment on above: Test Start: 04-22-2022 End: 04-22-[address] Ryan Leyva Work Phone: [facility], [facility] Start: 04-19-2022 End: 04-19-[address] [facility] Phone[facility] Start: 04-18-2022 End: 04-18-2022 Admission to same day surgery center Dr. Ryan Leyva Work Phone: [facility]-Endoscopy Start: 04-10-2022 End: 04-10-[address] Ryan Leyva Work Phone: [facility]-Laboratory, Specimen Start: 04-08-2022 End: 04-08-[address] Ryan Leyva Work Phone: [facility]-Laboratory Start: 04-08-2022 End: 04-08-[address] Ryan Leyva Work Phone: [facility] Start: 04-04-2022 End: 04-04-2022 Patient encounter procedure Collin Garcia DPM Work Phone: [facility] Comment on above: Chronic pain in left foot (Primary Dx); Complex regional pain syndrome type 1 of left lower extremity Start: 03-20-2022 End: 03-20-[address] Ryan Leyva Work Phone: [facility]-Sleep Lab Start: 02-26-2022 End: 02-26-[address] Ryan Leyva Work Phone: [facility] Start: 02-05-2022 End: 02-05-[address] Ryan Leyva Work Phone: [facility]-Radiology, [facility] Start: 01-29-2022 End: 01-29-[address] Ryan Leyva Work Phone: [facility]-Laboratory, [facility] Start: 01-15-2022 End: 01-15-[address] Ryan Leyva Work Phone: [facility]-Outpatient Bone Densitometry Start: 12-06-2021 Non-patient / Non-visit Dr. Ryan Leyva Work Phone: [facility] Start: 05-09-[address] Ryan Leyva Work Phone: [facility] Start: 07-28-2017 End: 07-29-2017 Ambulatory [facility] Procedures Date Procedure Procedure Detail Performing Clinician Start: 01-22-[address] Ryan Leyva MD Work Phone: Start: 01-22-2025 Blood count smear mcrscp w/mnl difrntl wbc count Dr. Ryan Leyva MD Work Phone: Start: 01-22-2025 BUN/Creatinine ratio Dr. Ryan Leyva MD Work Phone: Start: 01-22-[address] Romaine Leyva MD Work Phone: Start: 01-22-[address] Ryan Leyva MD Work Phone: Start: 01-22-2025 Mean corpuscular hemoglobin concentration determination Dr. Ryan Leyva MD Work Phone: Start: 01-22-2025 Measurement of renal function Dr. Gustavo Leyva MD Work Phone: Start: 01-22-2025 Nucleated red blood cell count procedure Dr. Ryan Leyva MD Work Phone: Start: 01-22-2025 Platelet mean volume determination Dr. Michele Leyva MD Work Phone: Start: 01-21-2025 Albumin/Globulin ratio Dr. Ryan Leyva MD Work Phone: Start: 01-20-2025 Benzodiazepine measurement, urine Dr. Derrell Leyva MD Work Phone: Start: 01-20-2025 Cocaine measurement, urine Dr. Ryan Leyva MD Work Phone: Start: 01-20-2025 Measurement of 3,4-methylenedioxymethamphetamine in urine Dr. Ryan Leyva MD Work Phone: Start: 01-20-2025 Methadone measurement, urine Dr. Jam Leyva MD Work Phone: Start: 01-20-[address] Gustavo Leyva MD Work Phone: Start: 01-20-[address] Gustavo Leyva MD Work Phone: Start: 01-20-[address] Gustavo Leyva MD Work Phone: Start: 01-20-[address] Ryan Leyva MD Work Phone: Start: 01-20-[address] Ryan Leyva MD Work Phone: Start: 01-20-2025 Venous oxygen saturation measurement Dr. Ryan Leyva MD Work Phone: Start: 01-20-2025 Plain chest X-ray Dr. Ryan Leyva MD Work Phone: Start: 01-20-2025 Urine microscopy: red cells Dr. Jackie Leyva MD Work Phone: Start: 01-20-2025 Urnls dip stick/tablet reagent auto microscopy Dr. Ryan Leyva MD Work Phone: Start: 01-20-[address] Ryan Leyva MD Work Phone: Start: 01-20-2025 Dr. Ryan Leyva MD Work Phone: Start: 01-20-[address] Jackie Leyva MD Work Phone: Start: 01-20-2025 CT of head without contrast Dr. Jackie Leyva MD Work Phone: Start: 01-20-2025 CT cervical spine without contrast Dr. Michele Leyva MD Work Phone: Start: 12-10-2024 MRI of brain with contrast Dr. Ryan Leyva MD Work Phone: Start: 03-15-2024 Radiologic examination of knee Dr. Romaine Leyva Work Phone: Start: 01-09-[address] Ryan Leyva Work Phone: Start: 12-22-[address] Ryan Leyva Work Phone: Start: 10-27-[address] Ryan Leyva Work Phone: Start: 08-20-2023 CT of thorax with contrast Dr. Ryan Leyva Work Phone: Start: 02-03-[address] Ryan Leyva Work Phone: Start: 01-03-2023 X-ray of cervical spine Dr. Ryan Leyva Work Phone: Start: 12-26-2022 MRI of cervical spine Dr. Ryan Leyva Work Phone: Start: 12-11-2022 Radionuclide imaging of liver and/or biliary tract using radioactive isotope Dr. Ryan Leyva Work Phone: Start: 10-22-[address] Ryan Leyva Work Phone: Start: 08-13-2022 Radionuclide localization of tumor, whole body Dr. Ryan Leyva Work Phone: Start: 08-13-2022 Single photon emission computed tomography of tumor Dr. Ryan Leyva Work Phone: Start: 07-03-[address] Ryan Leyva Work Phone: Start: 06-12-2022 Radiologic examination of knee Dr. Romaine Leyva Work Phone: Start: 05-31-2022 Radionuclide gastric emptying study Dr. Ryan Leyva Work Phone: Start: 05-01-[address] Ryan Leyva Work Phone: Start: 04-22-[address] Ryan Leyva Work Phone: Start: 04-22-[address] Ryan Leyva Work Phone: Start: 04-19-2022 Computed tomography of abdomen and pelvis with contrast Dr. Ryan Leyva Work Phone: Start: 04-18-[address] Ryan Leyva Work Phone: Start: 04-10-2022 End: 04-10-[address] Anahy Leyva Work Phone: Start: 04-10-[address] Ryan Leyva Work Phone: Start: 04-10-2022 End: 04-10-[address] Ryan Leyva Work Phone: Start: 04-10-2022 End: 04-10-[address] [address] parasites [address] Anahy Leyva Work Phone: Start: 04-04-2022 Radex foot complete minimum 3 views Ene Duongcorbin DPM Work Phone: Start: 02-05-[address] Ryan Leyva Work Phone: Start: 01-29-[address] Ryan Leyva Work Phone: Start: 01-15-2022 Dual energy X-ray absorptiometry Dr. Pranav Leyva Work Phone: Start: 11-05-2017 Mammography Collin Radha DPM Work Phone: Start: 12-13-2011 Colonoscopy Collin Garcia DPM Work Phone: History of operative procedure on knee History of arthroplasty of right knee Dr. Ryan Leyva Work Phone: [facility] parasites identification Dr. Ryan Leyva Work Phone: Plan of Treatment Date Care Activity Detail Author Start: 06-13-2025 [facility] Start: 04-28-2025 Evaluation of diagnostic study results [facility] Start: 04-13-2025 Basic metabolic 2008 panel with ionized calcium - Serum or Plasma [facility] Start: 04-13-2025 T4 free measurement [facility] Start: 04-13-2025 Thyroid stimulating hormone measurement [facility] Start: 04-08-2025 Patient referral [facility] Work Phone: Start: 01-22-2025 Patient discharge [facility] Start: 01-21-2025 [facility] Start: 01-20-2025 Following clinical pathway protocol [facility] Start: 01-20-2025 Assessment of risk of venous thromboembolism [facility] Start: 01-20-2025 Care regimes management [facility] Start: 01-20-2025 Fall prevention [facility] Start: 01-20-2025 Inhalation therapy procedure [facility] Start: 01-20-2025 Insertion of catheter into peripheral vein [facility] Start: 01-20-2025 Measuring intake and output [facility] Start: 01-20-2025 Notification of physician [facility] Start: 01-20-2025 Providing care according to standard [facility] Start: 01-20-2025 Provision of activity privileges [facility] Start: 01-20-2025 Referral to occupational therapist [facility] Start: 01-20-2025 Referral to service [facility] Start: 01-20-2025 End: 01-20-2025 [facility] Start: 01-20-2025 Admission procedure [facility] Start: 01-20-2025 Hospital admission, emergency, from emergency room, medical nature [facility] Start: 01-20-2025 [facility] Start: 01-20-2025 Patient referral to dietitian [facility] Start: 10-27-2023 Egd transoral biopsy single/multiple EGD BIOPSY SINGLE/MULTIPLE [facility] Start: 10-27-2023 Esophagogastroduodenoscopy submucosal injection UPPR GI SCOPE W/SUBMUC INJ [facility] Start: 10-27-2023 Patient discharge [facility] Start: 08-06-2023 Patient referral [facility] Work Phone: Start: 02-03-[address] [facility] Start: 11-11-2022 Elastase, pancreatic (el-1), fecal; quantitative [facility] Work Phone: Start: 11-11-2022 Fat [Presence] in Stool [facility] Work Phone: Start: 11-05-2022 Gastrin [Mass/volume] in Serum or Plasma [facility] Work Phone: Start: 10-22-2022 Egd insert guide wire dilator passage esophagus EGD GUIDE WIRE INSERTION [facility] Start: 10-22-2022 Egd removal tumor polyp/other lesion snare tech EGD REMOVE LESION SNARE [facility] Start: 10-22-2022 Egd transoral biopsy single/multiple EGD BIOPSY SINGLE/MULTIPLE [facility] Start: 10-22-2022 Esophagogastroduodenoscopy submucosal injection UPPR GI SCOPE W/SUBMUC INJ [facility] Start: 10-22-2022 Patient discharge [facility] Start: 08-01-[address] [facility] Start: 05-01-2022 Egd insert guide wire dilator passage esophagus EGD GUIDE WIRE INSERTION [facility] Work Phone: Start: 05-01-2022 Egd transoral biopsy single/multiple EGD BIOPSY SINGLE/MULTIPLE [facility] Work Phone: Start: 04-22-2022 Ultrasonography of abdomen Abdomen Limited [facility] Work Phone: Start: 04-22-2022 Ultrasound elastography Elastography Parenchyma/Organ [facility] Work Phone: Start: 04-18-2022 Esophageal motility study w/interp&rpt ESOPHAGUS MOTILITY STUDY [facility] Work Phone: Start: 04-10-2022 C. difficile DNA Amplification C. difficile DNA Amplification [facility] Work Phone: Start: 04-10-2022 Enteric Bacteriology [facility] Work Phone: Start: 12-13-[address] [facility] Start: 12-13-2021 COLORECTAL CANCER SCREENING COLORECTAL CANCER SCREENING [facility] Start: 07-09-2021 DIABETES SCREEN DIABETES SCREEN [facility] Start: 04-11-2021 Urine microalbumin profile DTAP,TDAP,TD (2 - Td or Tdap) [facility] Start: 07-08-2019 ANNUAL PCP TEAM CHRONIC DISEASE VISIT ANNUAL PCP TEAM CHRONIC DISEASE VISIT [facility] Start: 11-05-[address] [facility] Start: 2009 SHINGRIX VACCINE (1 of 2) SHINGRIX VACCINE (1 of 2) [facility] Start: 2004 COLOGUARD (FIT-DNA) COLOGUARD (FIT-DNA) [facility] Start: [address] [facility] Start: 2004 FECAL OCCULT BLOOD FECAL OCCULT BLOOD [facility] Start: [address] [facility] Start: 1977 BP CONTROLLED (<130/80) BP CONTROLLED (<130/80) [facility] Start: 1977 HIV SCREENING HIV SCREENING [facility] Start: 1964 COVID-19 VACCINE (#1) COVID-19 VACCINE (#1) [facility] Start: 1959 COVID-19 VACCINE (#1) COVID-19 VACCINE (#1) [facility] Uigei-1-lzmsoeyeiaf. tumor marker [Units/volume] in Serum or Plasma [facility] Anion gap in Serum or Plasma [facility] Basic metabolic 2008 panel with ionized calcium - Serum or Plasma [facility] BUN/Creatinine ratio [facility] C reactive protein [ Mass/volume] in Serum or Plasma [facility] C reactive protein [ Mass/volume] in Serum or Plasma [facility] C reactive protein [ Mass/volume] in Serum or Plasma [facility] Calcium [Mass/volume ] in Serum or Plasma [facility] Carbon dioxide, tota l [Moles/volume] in Central venous blood [facility] CBC W Auto Different ial panel - Blood [facility] Work Phone: CBC W Auto Different ial panel - Blood [facility] CBC W Auto Different ial panel - Blood [facility] CBC W Auto Different ial panel - Blood [facility] CBC W Auto Different ial panel - Blood [facility] Cobalamin (Vitamin B 12) [Mass/volume] in Serum or Plasma [facility] Complete blood count [facility] metabo lic 1999 panel - Serum or Plasma [facility] metabo lic 1999 panel - Serum or Plasma [facility] Continuous pulse oximetry [facility] Creatinine [Mass/vol ume] in Serum or Plasma [facility] CT Chest W contrast IV [facility] Cytoplasmic ANCA Screen [facility] Elastase, pancreatic (el-1), fecal; quantitative [facility] Work Phone: Fat [Mass/mass] in Stool [facility] Work Phone: Fat [Presence] in Stool [facility] Work Phone: Fat.neutral [Presence] in Stool [facility] Work Phone: Ferritin [Mass/volum e] in Serum or Plasma [facility] Gastrin [Mass/volume ] in Serum or Plasma [facility] Work Phone: Glucose [Mass/volume ] in Serum or Plasma [facility] Hemoglobin A1c/Hemog lobin.total in Blood [facility] Hemoglobin A1c/Hemog lobin.total in Blood [facility] Hemoglobin A1c/Hemog lobin.total in Blood [facility] Lipid 1995 panel - S shu or Plasma [facility] Work Phone: Lipid 1995 panel - S shu or Plasma [facility] Lipid 1995 panel - S shu or Plasma [facility] Lipid 1995 panel - S shu or Plasma [facility] Lipid 1995 panel - S shu or Plasma [facility] Lipid 1995 panel - S shu or Plasma [facility] Lipid 1995 panel - S shu or Plasma [facility] Liver stiffness by U S.transient elastography [facility] Liver stiffness by U S.transient elastography [facility] Measurement of renal function [facility] Measurement of respi ratory function [facility] Measurement of respi ratory function [facility] NM Heart Views W str ess and W radionuclide IV [facility] End: 05-04-2023 Non-invasive physiologic study extremity 3 levls US ARTERIAL PVR LOWER Radiology Routine Chronic pain in left foot 1 Occurrences starting 04/04/2022 until 05/04/2023 [facility] Work Phone: Comment on above: 1 Occurrences starting 04/04/2022 until 05/04/2023 Patient referral [facility] Work Phone: Potassium measurement [facility] Procedure [facility] Prothrombin time [facility] Prothrombin time [facility] Prothrombin time [facility] Radionuclide imaging of liver and/or biliary tract using radioactive isotope [facility] Work Phone: Serum chloride measurement [facility] Sodium measurement [facility] Thyroid stimulating hormone measurement [facility] Urea nitrogen [Mass/ volume] in Serum or Plasma [facility] US Heart [facility] Vitamin D, 1,25-dihy droxy measurement [facility] Vitamin D, 25-hydroxy measurement [facility] Vitamin D, 25-hydroxy measurement [facility] Immunizations Immunization Date Immunization Notes Care Provider Buzz crespo 10-04-2024 Seasonal trivalent influenza vaccine, adjuvanted, preservative free Dr. Ryan Leyva MD Work Phone: [facility] 10-17-2023 influenza, injectabl e, quadrivalent, preservative free Dr. Ryan Leyva Work Phone: [facility] 12-26-2022 influenza, injectabl e, quadrivalent, preservative free Dr. Ryan Leyva Work Phone: [facility] 12-26-2022 influenza, seasonal, injectable Dr. Ryan Leyva Work Phone: [facility] 10-06-2020 influenza, injectable,quadrivalent, preservative free, pediatric Dr. Ryan Leyva Work Phone: [facility] 10-06-2020 Flucelvax Quad 2019- 2020 (PF) (flu vac qs 2019(4 yr up)CD(PF)) 60 mcg ([address] Ryan Leyva Work Phone: [facility] Work Phone: 10-27-2019 Flucelvax Quad 2018- 2019 (PF) (flu vac qs 2018(4 yr up)CD(PF)) 60 mcg ([address] Ryan Leyva Work Phone: [facility] Work Phone: 09-06-[address] Ryan Leyva Work Phone: [facility] 09-10-2017 influenza, injectabl e, quadrivalent, contains preservative Collin Garcia DPM Work Phone: [facility] 10-14-2016 influenza, injectabl e, quadrivalent, contains preservative Collin Garcia DPM Work Phone: [facility] 10-14-2016 pneumococcal polysaccharide vaccine, 23 valent Collin Garcia DPM Work Phone: [facility] 11-25-2015 influenza, injectabl e, quadrivalent, preservative free Dr. Ryan Leyva Work Phone: [facility] 11-25-2015 influenza, seasonal, injectable Dr. Ryan Leyva Work Phone: [facility] Work Phone: 09-30-2013 influenza virus vacc ine, unspecified formulation Collin Garcia DPM Work Phone: [facility] 09-19-2011 influenza virus vacc ine, unspecified formulation Collin Garcia DPM Work Phone: [facility] 04-11-2011 tetanus toxoid, redu nando diphtheria toxoid, and acellular pertussis vaccine, adsorbed Collin Garcia DPM Work Phone: [facility] Work Phone: Payers Date Payer Category Payer Medicare [id number] 2024 Self-pay [id number] 2016 Medicaid [facility] MEDICAID [facility] MEDICAID [id number] 2016-Present [phone] [address] [place] [address] Medicaid [id number] 2016 Medicaid [facility] MEDICAID [facility] [employer] MEDICAID [place] [id number] 2016-Present [phone] [address] [place] [address] Medicaid [id number] 2016 Unknown [id number] 2016 Unknown [id number] 2015 Unknown [id number] 1959 Unknown [id number] 2.16840.1.021834.3.579.2.627 Unknown [id number] 2.16840.1.774519.3.579.2.462 Unknown [id number] 2.16840.1.350077.3.579.2.462 Unknown [id number] 2.16.840.1.244034.3.579.2.462 Unknown [id number] 2.16840.1.290546.3.579.2.462 Unknown [id number] 2.16840.1.395380.3.579.2.462 Unknown [id number] 2.16840.1.229939.3.579.2.462 Unknown [id number] 2.16.840.1.158224.3.579.2.462 Unknown [id number] 2.16.840.1.633374.3.579.2.462 Unknown [id number] 2.16.840.1.701693.3.579.2.462 Unknown [id number] 2.16840.1.516017.3.579.2.462 Unknown [id number] 2.16.840.1.591766.3.579.2.462 Unknown [id number] 2.16.840.1.388616.3.579.2.462 Unknown [id number] 2.16.840.1.523003.3.579.2.462 Unknown [id number] 2.16.840.1.769851.3.579.2.462 Unknown [id number] 2.16.840.1.354328.3.579.2.462 Unknown [id number] 2.16.840.1.214511.3.579.2.462 Unknown [id number] 2.16.840.1.472378.3.579.2.462 Unknown [id number] 2.16.840.1.231536.3.579.2.462 Unknown [id number] 2.16840.1.801406.3.579.2.462 Unknown [id number] 2.16.840.1.621436.3.579.2.462 Unknown [id number] 2.16.840.1.792964.3.579.2.462 Unknown [id number] 2.16.840.1.387562.3.579.2.462 Unknown [id number] 2.16.840.1.677830.3.579.2.462 Unknown [id number] 2.16.840.1.853116.3.579.2.462 Unknown [id number] 2.16.840.1.326215.3.579.2.462 Unknown [id number] 2.16.840.1.271105.3.579.2.462 Unknown [id number] 2.16.840.1.462233.3.579.2.462 Unknown [id number] 2.16.840.1.714919.3.579.2.462 Unknown [id number] 2.16.840.1.342140.3.579.2.462 Unknown [id number] 2.840.1.844967.3.579.2.462 Unknown [id number] 2.840.1.023562.3.579.2.462 Unknown [id number] 2.840.1.695739.3.579.2.462 Unknown [id number] 2.840.1.040049.3.579.2.462 Unknown [id number] 2.840.1.221991.3.579.2.462 Unknown [id number] 2.840.1.602451.3.579.2.462 Unknown [id number] 2.840.1.861646.3.579.2.462 Unknown [id number] 2.840.1.530532.3.579.2.462 Unknown [id number] .840.1.109446.3.579.2.462 Unknown [id number] 2.840.1.606314.3.579.2.462 Unknown [id number] 2.840.1.953845.3.579.2.462 Unknown [id number] .840.1.435107.3.579.2.462 Unknown [id number] 840.1.340985.3.579.2.462 Unknown [id number] .840.1.993224.3.579.2.462 Unknown [id number] 2.840.1.915805.3.579.2.462 Unknown [id number] 2.840.1.463937.3.579.2.462 Unknown [id number] 2.840.1.566790.3.579.2.462 Unknown [id number] 2.840.1.695294.3.579.2.462 Social History Date Type Detail Facility Start: 02-26-2022 End: 03-16-2024 Tobacco smoking status NHIS Unknown if ever smoked [facility] Start: 11-22-2019 None [facility] Start: 11-22-2019 Alone [facility] Start: 1960 Sex Assigned At Female C [facility] Start: 01-20-2025 Tobacco smoking stat us NHIS Never smoked tobacco [facility] Work Phone: Start: 04-14-2022 Alcohol intake Current drinke r of alcohol (finding) [facility] Start: 02-29-2016 History SDOH Alcohol Comment very light [facility] Start: 03-25-2022 End: 04-04-2022 Exposure to SARS-CoV-2 (event) Not sure [facility] Start: 03-08-2025 End: 03-23-2025 Sex Female (finding) [facility] Medical Equipment Procedure Code Equipment Code Equipment Origin al Text Equipment Identifier Dates Kyphoplasty JUANI KYPHO AUTOPLEX FDA Start: 09-17-2021 Kyphoplasty JUANI KYPHO AUTOPLEX FDA Start: 09-17-2021 Kyphoplasty JUANI KYPHO AUTOPLEX FDA Start: 09-17-2021 Kyphoplasty JUANI KYPHO AUTOPLEX FDA Start: 09-17-2021 Kyphoplasty JUANI KYPHO AUTOPLEX FDA Start: 09-17-2021 Kyphoplasty JUANI KYPHO AUTOPLEX FDA Start: 09-17-2021 Kyphoplasty JUANI KYPHO AUTOPLEX FDA Start: 09-17-2021 Kyphoplasty JUANI KYPHO AUTOPLEX FDA Start: 09-17-2021 Kyphoplasty JUANI KYPHO AUTOPLEX FDA Start: 09-17-2021 Kyphoplasty JUANI KYPHO AUTOPLEX FDA Start: 09-17-2021 Kyphoplasty JUANI KYPHO AUTOPLEX FDA Start: 09-17-2021 Kyphoplasty JUANI KYPHO AUTOPLEX FDA Start: 09-17-2021 Kyphoplasty JUANI KYPHO AUTOPLEX FDA Start: 09-17-2021 Kyphoplasty JUANI KYPHO AUTOPLEX FDA Start: 09-17-2021 Kyphoplasty JUANI KYPHO AUTOPLEX FDA Start: 09-17-2021 Kyphoplasty JUANI KYPHO AUTOPLEX FDA Start: 09-17-2021 Kyphoplasty JUANI KYPHO AUTOPLEX FDA Start: 09-17-2021 Kyphoplasty JUANI KYPHO AUTOPLEX FDA Start: 09-17-2021 Kyphoplasty JUANI KYPHO AUTOPLEX FDA Start: 09-17-2021 Kyphoplasty JUANI KYPHO AUTOPLEX FDA Start: 09-17-2021 Kyphoplasty JUANI KYPHO AUTOPLEX FDA Start: 09-17-2021 Kyphoplasty JUANI KYPHO AUTOPLEX FDA Start: 09-17-2021 Kyphoplasty JUANI KYPHO AUTOPLEX FDA Start: 09-17-2021 Kyphoplasty JUANI KYPHO AUTOPLEX FDA Start: 09-17-2021 Kyphoplasty JUANI KYPHO AUTOPLEX FDA Start: 09-17-2021 Kyphoplasty FDA Start: 09-17-2021 Kyphoplasty FDA Start: 09-17-2021 Kyphoplasty FDA Start: 09-17-2021 Kyphoplasty FDA Start: 09-17-2021 Kyphoplasty FDA Start: 09-17-2021 Kyphoplasty FDA Start: 09-17-2021 Kyphoplasty FDA Start: 09-17-2021 Kyphoplasty FDA Start: 09-17-2021 Kyphoplasty FDA Start: 09-17-2021 Kyphoplasty FDA Start: 09-17-2021 Kyphoplasty FDA Start: 09-17-2021 Kyphoplasty FDA Start: 09-17-2021 EGD, with monitored anesthesia care [id number] FDA Start: 05-01-2022 Asymmetric Patella FDA Start: 07-11-2020 Cruciate Retaini ng Femoral FDA Start: 07-11-2020 Tibial Beraing Insert FDA Start: 07-11-2020 Tibial Component FDA Start: 07-11-2020 Asymmetric Patella FDA Start: 07-11-2020 Cruciate Retaini ng Femoral FDA Start: 07-11-2020 Tibial Beraing Insert FDA Start: 07-11-2020 Tibial Component FDA Start: 07-11-2020 Asymmetric Patella FDA Start: 07-11-2020 Cruciate Retaini ng Femoral FDA Start: 07-11-2020 Tibial Beraing Insert FDA Start: 07-11-2020 Tibial Component FDA Start: 07-11-2020 Ozy-Yx-D-Kind Implant - [id number]_[facility] Start: 12-19-2017 Vhe-Dd-R-Kind Implant - [id number]_[facility] Start: 12-19-2017 Lens Iol +13 Ralf p Acrsf Iq - [id number]_[facility] Start: 12-06-2011 Comment on above: Description: IOL Asymmetric Patella FDA Start: 07-11-2020 Cruciate Retaini ng Femoral FDA Start: 07-11-2020 Tibial Beraing Insert FDA Start: 07-11-2020 Tibial Component FDA Start: 07-11-2020 Asymmetric Patella FDA Start: 07-11-2020 Cruciate Retaini ng Femoral FDA Start: 07-11-2020 Tibial Beraing Insert FDA Start: 07-11-2020 Tibial Component FDA Start: 07-11-2020 Asymmetric Patella FDA Start: 07-11-2020 Cruciate Retaini ng Femoral FDA Start: 07-11-2020 Tibial Beraing Insert FDA Start: 07-11-2020 Tibial Component FDA Start: 07-11-2020 Asymmetric Patella FDA Start: 07-11-2020 Cruciate Retaini ng Femoral FDA Start: 07-11-2020 Tibial Beraing Insert FDA Start: 07-11-2020 Tibial Component FDA Start: 07-11-2020 Asymmetric Patella FDA Start: 07-11-2020 Cruciate Retaini ng Femoral FDA Start: 07-11-2020 Tibial Beraing Insert FDA Start: 07-11-2020 Tibial Component FDA Start: 07-11-2020 Asymmetric Patella FDA Start: 07-11-2020 Cruciate Retaini ng Femoral FDA Start: 07-11-2020 Tibial Beraing Insert FDA Start: 07-11-2020 Tibial Component FDA Start: 07-11-2020 Asymmetric Patella FDA Start: 07-11-2020 Cruciate Retaini ng Femoral FDA Start: 07-11-2020 Tibial Beraing Insert FDA Start: 07-11-2020 Tibial Component FDA Start: 07-11-2020 Asymmetric Patella FDA Start: 07-11-2020 Cruciate Retaini ng Femoral FDA Start: 07-11-2020 Tibial Beraing Insert FDA Start: 07-11-2020 Tibial Component FDA Start: 07-11-2020 Asymmetric Patella FDA Start: 07-11-2020 Cruciate Retaini ng Femoral FDA Start: 07-11-2020 Tibial Beraing Insert FDA Start: 07-11-2020 Tibial Component FDA Start: 07-11-2020 Asymmetric Patella FDA Start: 07-11-2020 Cruciate Retaini ng Femoral FDA Start: 07-11-2020 Tibial Beraing Insert FDA Start: 07-11-2020 Tibial Component FDA Start: 07-11-2020 Asymmetric Patella FDA Start: 07-11-2020 Cruciate Retaini ng Femoral FDA Start: 07-11-2020 Tibial Beraing Insert FDA Start: 07-11-2020 Tibial Component FDA Start: 07-11-2020 Asymmetric Patella FDA Start: 07-11-2020 Cruciate Retaini ng Femoral FDA Start: 07-11-2020 Tibial Beraing Insert FDA Start: 07-11-2020 Tibial Component FDA Start: 07-11-2020 Asymmetric Patella FDA Start: 07-11-2020 Cruciate Retaini ng Femoral FDA Start: 07-11-2020 Tibial Beraing Insert FDA Start: 07-11-2020 Tibial Component FDA Start: 07-11-2020 Asymmetric Patella FDA Start: 07-11-2020 Cruciate Retaini ng Femoral FDA Start: 07-11-2020 Tibial Beraing Insert FDA Start: 07-11-2020 Tibial Component FDA Start: 07-11-2020 Asymmetric Patella FDA Start: 07-11-2020 Cruciate Retaini ng Femoral FDA Start: 07-11-2020 Tibial Beraing Insert FDA Start: 07-11-2020 Tibial Component FDA Start: 07-11-2020 Asymmetric Patella FDA Start: 07-11-2020 Cruciate Retaini ng Femoral FDA Start: 07-11-2020 Tibial Beraing Insert FDA Start: 07-11-2020 Tibial Component FDA Start: 07-11-2020 Asymmetric Patella FDA Start: 07-11-2020 Cruciate Retaini ng Femoral FDA Start: 07-11-2020 Tibial Beraing Insert FDA Start: 07-11-2020 Tibial Component FDA Start: 07-11-2020 Asymmetric Patella FDA Start: 07-11-2020 Cruciate Retaini ng Femoral FDA Start: 07-11-2020 Tibial Beraing Insert FDA Start: 07-11-2020 Tibial Component FDA Start: 07-11-2020 Asymmetric Patella FDA Start: 07-11-2020 Cruciate Retaini ng Femoral FDA Start: 07-11-2020 Tibial Beraing Insert FDA Start: 07-11-2020 Tibial Component FDA Start: 07-11-2020 Asymmetric Patella FDA Start: 07-11-2020 Cruciate Retaini ng Femoral FDA Start: 07-11-2020 Tibial Beraing Insert FDA Start: 07-11-2020 Tibial Component FDA Start: 07-11-2020 Asymmetric Patella FDA Start: 07-11-2020 Cruciate Retaini ng Femoral FDA Start: 07-11-2020 Tibial Beraing Insert FDA Start: 07-11-2020 Tibial Component FDA Start: 07-11-2020 Asymmetric Patella FDA Start: 07-11-2020 Cruciate Retaini ng Femoral FDA Start: 07-11-2020 Tibial Beraing Insert FDA Start: 07-11-2020 Tibial Component FDA Start: 07-11-2020 FDA Start: 07-11-2020 FDA Start: 07-11-2020 FDA Start: 07-11-2020 FDA Start: 07-11-2020 FDA Start: 07-11-2020 FDA Start: 07-11-2020 FDA Start: 07-11-2020 FDA Start: 07-11-2020 FDA Start: 07-11-2020 FDA Start: 07-11-2020 FDA Start: 07-11-2020 FDA Start: 07-11-2020 FDA Start: 07-11-2020 FDA Start: 07-11-2020 FDA Start: 07-11-2020 FDA Start: 07-11-2020 FDA Start: 07-11-2020 FDA Start: 07-11-2020 FDA Start: 07-11-2020 FDA Start: 07-11-2020 FDA Start: 07-11-2020 FDA Start: 07-11-2020 FDA Start: 07-11-2020 FDA Start: 07-11-2020 FDA Start: 07-11-2020 FDA Start: 07-11-2020 FDA Start: 07-11-2020 FDA Start: 07-11-2020 FDA Start: 07-11-2020 FDA Start: 07-11-2020 FDA Start: 07-11-2020 FDA Start: 07-11-2020 FDA Start: 07-11-2020 FDA Start: 07-11-2020 FDA Start: 07-11-2020 FDA Start: 07-11-2020 FDA Start: 07-11-2020 FDA Start: 07-11-2020 FDA Start: 07-11-2020 FDA Start: 07-11-2020 FDA Start: 07-11-2020 FDA Start: 07-11-2020 FDA Start: 07-11-2020 FDA Start: 07-11-2020 FDA Start: 07-11-2020 FDA Start: 07-11-2020 FDA Start: 07-11-2020 FDA Start: 07-11-2020 Goals Date Patient Goal Desired Activity /State Functional Status Date Assessment Result Facility 01-22-2025 Functional status Independent;Standby Ass ist [facility] Work Phone: Mental Status Date Assessment Result Facility 01-22-2025 Cognitive function Voice/Name [facility] Work Phone: 10-27-2023 Cognitive function Voice/Name [facility] Work Phone: 10-22-2022 Cognitive function Voice/Name [facility] Work Phone: 05-01-2022 Cognitive function Voice/Name [facility] Work Phone: 05-01-2022 Cognitive function Patient Soraya hidalgo Person;Place;Time [facility] Work Phone: 04-18-2022 Cognitive function Level Of Cons ciousness Awake;Alert;Appropriate;Follow s Commands [facility] Work Phone: Clinical Notes 12-19-2017 to 04-18-2025 Note Date & Type Note Facility 04-18-2025 Progress note Note Date/Time April 18, 2025 8:58p m [facility] [address] [place] [address] OFFICE VISIT Date of Service: 04/18/25 MR#: [id number] Acct: [id number] Patient: NATALIA MARQUEZ Rep #: [id number] : 1960 Provider: PAOLA Bautista Age/Sex: 64/F Location[place] [facility] [place] Status: Signed Intake Vital Signs 04/13/25 14:33 Height 5 ft 1 in Intake Visit Reasons: PROLIA- $0 PT PROVIDED Chief Complaint: 3 M FU Allergies paroxetine (From Paxil) Allergy (Verified 04/13/25 13:42) suicidal thoughts bupropion (From Wellbutrin) Adverse Reaction (Severe, Verified 04/13/25 13:42) suicidal thoughts oxycodone HCl (From Percocet) Adverse Reaction (Verified 04/13/25 13:42) Itching Penicillins Adverse Reaction (Verified 04/13/25 13:42) YEAST INFECTION Have you fallen in the past year?: Yes Office Procedures Injections Is this a patient provided medication?: Yes Office Meds Prolia 60 mg/mL subcutaneous syringe Performing Provider: Ryan Leyva MD Performing Location: [facility] Administered by: Leslie Fregoso MA on 04/18/25 12:54 Dose Route Admin Location Dispensed Lot Number Expiration Date NDC Division Order Technician 60 mg subcut LA 1 mL [id number] 07/31/27 38707-341-36 [facility] Comments: dx: osteo Pt provided. Assessment and Plan Assessment and Plan (1) Osteoporosis: Status: Chronic Orders: Orders Prolia Injection Today M81.0 - Age-related osteoporosis without current pathological fracture Clinical Quality Measures Falls Risk Screening/Assistive Devices Have you fallen in the past year?: Yes 04/18/252057 <Electronically signed by Ryan cummings MD> Date _ Ryan Leyva MD Cosigner Signature: Date (if applicable) CC: ~ [facility] Work Phone: [phone]) 735-103703-04-2025 Evaluation note* Diagnosis Onset Date Resolution Status Admit Date B12 nutritional deficiency acute February 01, 2025 8:37am Confusion acute February 01 8:37am Hypotension acute February 01 8:37am Neck pain acute February 01 8:37am Tension headache chronic January 8:37am Obstructive sleep apnea acute 2024 10:53am Eosinophilic asthma chronic February 01, 2025 10:53am Dysphagia chronic March 30 1:39pm Metabolic dysfunction-associated steatotic liver disease (MASLD) chronic March 30, 2025 1:39pm B12 nutritional deficiency acute March 31, 2025 1:22pm Mild cognitive impairment acute March 31, 2025 1:22pm Insomnia chronic March 31, 2025 1:22pm Tension headache chronic March 31, 2025 1:22pm Allergic rhinitis acute March 11:06am Obstructive sleep apnea acute 2024 11:06am Eosinophilic asthma chronic April 082024 11:06am Encephalopathy acute April 13, 2025 1:34pm Anxiety and depression chronic Ma y 2024 1:34pm Hypertension chronic April 13 1:34pm Insomnia chronic April 13, 2025 1:34pm Type 2 diabetes mellitus chronic April 13, 2025 1:34pm Osteoporosis chronic April 18 12:47pm Atherosclerotic vascular disease chronic April 28, 2025 11:29am Dyslipidemia chronic April 28 11:29am Dyspnea on exertion chronic April 012024 11:29am Hypertension chronic April 28 11:29am Morbid obesity with BMI of 40.0-44.9, adult chronic April 28, 2025 11:29am Type 2 diabetes mellitus chronic April 28, 2025 11:29am Preoperative cardiovascular examination noneactive April 28, 2025 11:29am Allergic rhinitis acute May 182024 3:12pm Obstructive sleep apnea acute J 2024 3:12pm Eosinophilic asthma chronic May 18, 2025 3:12pm [facility] Work Phone: 1(326) 595-194502-22-2025 [facility]02-20-2025 Evaluation note* Diagnosis Onset Date Resolution Status Admit Date Acute UTI acute January 20, 2025 5:15pm Encephalopathy acute January 022024 5:15pm Falls frequently acute January 20, 2025 5:15pm B12 nutritional deficiency acute February 01, 2025 8:37am Confusion acute February 01 8:37am Hypotension acute February 01 8:37am Neck pain acute February 01 8:37am Tension headache chronic January 8:37am Obstructive sleep apnea acute 2024 10:53am Eosinophilic asthma chronic February 01, 2025 10:53am Dysphagia chronic March 30 1:39pm Metabolic dysfunction-associated steatotic liver disease (MASLD) chronic March 30, 2025 1:39pm B12 nutritional deficiency acute March 31, 2025 1:22pm Mild cognitive impairment acute March 31, 2025 1:22pm Insomnia chronic March 31, 2025 1:22pm Tension headache chronic March 31, 2025 1:22pm Allergic rhinitis acute March 11:06am Obstructive sleep apnea acute M 2024 11:06am Eosinophilic asthma chronic April 082024 11:06am Encephalopathy acute April 13, 2025 1:34pm Anxiety and depression chronic 2024 1:34pm Hypertension chronic April 13 1:34pm Insomnia chronic April 13, 2025 1:34pm Type 2 diabetes mellitus chronic April 13, 2025 1:34pm Osteoporosis chronic April 18 12:47pm Atherosclerotic vascular disease chronic April 28, 2025 1 1:29am Dyslipidemia chronic April 28 11:29am Dyspnea on exertion chronic April 012024 11:29am Hypertension chronic April 28 11:29am Morbid obesity with BMI of 40.0-44.9, adult chronic April 28, 2025 11:29am Type 2 diabetes mellitus chronic April 28, 2025 11:29am Preoperative cardiovascular examination noneactive April 28, 2025 1 1:29am Allergic rhinitis acute May 182024 3:12pm Obstructive sleep apnea acute J 2024 3:12pm Eosinophilic asthma chronic May 18, 2025 3:12pm [facility] Work Phone: [phone]) 297-395702-05-2025 Evaluation note* Diagnosis Onset Date Resolution Status Admit Date Anxiety and depression chronic Fe 2024 1:51pm Hypertension chronic January 1:51pm Insomnia chronic January 05, 2025 1:51pm Recurrent falls chronic January 05, 2025 1:51pm Type 2 diabetes mellitus chronic January 05, 2025 1:51pm Acute UTI acute January 20, 2025 5:15pm Encephalopathy acute January 022024 5:15pm Falls frequently acute January 20, 2025 5:15pm B12 nutritional deficiency acute February 01, 2025 8:37am Confusion acute February 01 8:37am Hypotension acute February 01 8:37am Neck pain acute February 01 8:37am Tension headache chronic January 8:37am Obstructive sleep apnea acute M 2024 10:53am Eosinophilic asthma chronic February 01, 2025 10:53am [facility] Work Phone: 1(688) 599-422802-05-2025 Evaluation note* Diagnosis Onset Date Resolution Status Admit Date Anxiety and depression chronic 2024 1:51pm Hypertension chronic January 1:51pm Insomnia chronic January 05, 2025 1:51pm Recurrent falls January 05, 2025 1:51pm Type 2 diabetes mellitus January 05, 2025 1:51pm Acute UTI acute January 20, 2025 5:15pm Encephalopathy acute January 022024 5:15pm Falls frequently acute January 20, 2025 5:15pm B12 nutritional deficiency acute February 01, 2025 8:37am Confusion acute February 01 8:37am Hypotension acute February 01 8:37am Neck pain acute February 01 8:37am Tension headache chronic January 8:37am Obstructive sleep apnea acute 2024 10:53am Eosinophilic asthma chronic February 01, 2025 10:53am Dysphagia chronic March 30 1:39pm Metabolic dysfunction-associated steatotic liver disease (MASLD) chronic March 30, 2025 1:39pm B12 nutritional deficiency acute March 31, 2025 1:22pm Mild cognitive impairment acute March 31, 2025 1:22pm Insomnia chronic March 31, 2025 1:22pm Tension headache chronic March 31, 2025 1:22pm Allergic rhinitis acute March 11:06am Obstructive sleep apnea acute 2024 11:06am Eosinophilic asthma chronic April 082024 11:06am [facility] Work Phone: 1(978) 620-776002-05-2025 Evaluation note* Diagnosis Onset Date Resolution Status Admit Date Anxiety and depression chronic 2024 1:51pm Hypertension chronic January 1:51pm Insomnia chronic January 05, 2025 1:51pm Recurrent falls January 05, 2025 1:51pm Type 2 diabetes mellitus January 05, 2025 1:51pm Acute UTI acute January 20, 2025 5:15pm Encephalopathy acute January 022024 5:15pm Falls frequently acute January 20, 2025 5:15pm B12 nutritional deficiency acute February 01, 2025 8:37am Confusion acute February 01 8:37am Hypotension acute February 01 8:37am Neck pain acute February 01 8:37am Tension headache chronic January 8:37am Obstructive sleep apnea acute 2024 10:53am Eosinophilic asthma chronic February 01, 2025 10:53am Dysphagia chronic March 30 1:39pm Metabolic dysfunction-associated steatotic liver disease (MASLD) chronic March 30, 2025 1:39pm B12 nutritional deficiency acute March 31, 2025 1:22pm Mild cognitive impairment acute March 31, 2025 1:22pm Insomnia chronic March 31, 2025 1:22pm Tension headache chronic March 31, 2025 1:22pm Allergic rhinitis acute March 11:06am Obstructive sleep apnea acute M 2024 11:06am Eosinophilic asthma chronic April 082024 11:06am Encephalopathy acute April 13, 2025 1:34pm Anxiety and depression chronic 2024 1:34pm Hypertension chronic April 13 1:34pm Insomnia chronic April 13, 2025 1:34pm Type 2 diabetes mellitus chronic April 13, 2025 1:34pm Osteoporosis chronic April 18 12:47pm [facility] Work Phone: 1(792) 820-593102-05-2025 Evaluation note* Diagnosis Onset Date Resolution Status Admit Date Anxiety and depression chronic Fe bru2024 1:51pm Hypertension chronic January 1:51pm Insomnia chronic January 05, 2025 1:51pm Recurrent falls chronic January 05, 2025 1:51pm Type 2 diabetes mellitus chronic January 05, 2025 1:51pm Acute UTI acute January 20, 2025 5:15pm Encephalopathy acute January 022024 5:15pm Falls frequently acute January 20, 2025 5:15pm B12 nutritional deficiency acute February 01, 2025 8:37am Confusion acute February 01 8:37am Hypotension acute February 01 8:37am Neck pain acute February 01 8:37am Tension headache chronic January 8:37am Obstructive sleep apnea acute 2024 10:53am Eosinophilic asthma chronic February 01, 2025 10:53am Dysphagia chronic March 30 1:39pm Metabolic dysfunction-associated steatotic liver disease (MASLD) chronic March 30, 2025 1:39pm B12 nutritional deficiency acute March 31, 2025 1:22pm Mild cognitive impairment acute March 31, 2025 1:22pm Insomnia chronic March 31, 2025 1:22pm Tension headache chronic March 31, 2025 1:22pm Allergic rhinitis acute March 11:06am Obstructive sleep apnea acute M ay 2024 11:06am Eosinophilic asthma chronic April 082024 11:06am Encephalopathy acute April 13, 2025 1:34pm Anxiety and depression chronic Ma y 2024 1:34pm Hypertension chronic April 13 1:34pm Insomnia chronic April 13, 2025 1:34pm Type 2 diabetes mellitus chronic April 13, 2025 1:34pm Osteoporosis chronic April 18 12:47pm Atherosclerotic vascular disease chronic April 28, 2025 1 1:29am Dyslipidemia chronic April 28 11:29am Dyspnea on exertion chronic April 012024 11:29am Hypertension chronic April 28 11:29am Morbid obesity with BMI of 40.0-44.9, adult chronic April 28, 2025 11:29am Type 2 diabetes mellitus chronic April 28, 2025 11:29am Preoperative cardiovascular examination noneactive April 28, 2025 1 1:29am [facility] Work Phone: 1(348) 452-355412-17-2024 Evaluation note* Diagnosis Onset Date Resolution Status Admit Date Dysphagia chronic November 16, 2024 1:24pm Metabolic dysfunction-associated steatotic liver disease (MASLD) chronic November 16, 2024 1:24pm Anxiety and depression chronic Fe 2024 1:51pm Hypertension chronic January 1:51pm Insomnia chronic January 05, 2025 1:51pm Recurrent falls chronic January 05, 2025 1:51pm Type 2 diabetes mellitus chronic January 05, 2025 1:51pm Acute UTI acute January 20, 2025 5:15pm Encephalopathy acute January 022024 5:15pm Falls frequently acute January 20, 2025 5:15pm B12 nutritional deficiency acute February 01, 2025 8:37am Confusion acute February 01 8:37am Hypotension acute February 01 8:37am Neck pain acute February 01 8:37am Tension headache chronic January 8:37am Obstructive sleep apnea acute M 2024 10:53am Eosinophilic asthma chronic February 01, 2025 10:53am [facility] Work Phone: 1(754) 596-489411-26-2024 [facility]11-27-2023 History and physical note Author Casey Summers [facility] October 27, 2023 11:18am Note Date/Time October 27, 2023 11:19am [facility] Medical Records Department [address] [place] [address] History & Physical Exam 10/27/23 1118 MR#: [id number] Acct: [id number] Name: NATALIA MARQUEZ Rep #:[id number] : 1960 63 From: Casey Summers DO PCP: Dr. Ryan Leyva MD Status:[facility] Location: [place] [address] History and Physical Date of Admission: 10/27/23 NATALIA MARQUEZ, is a 62 F who presents to the office today for f/u recurrent epigastric pain. Extensive w/u hasn't revealed a specific cause. Normal right upper quadrant ultrasound, normal HIDA, normal MRCP, gastric emptying study normal. At last appt 01/2023 we started gabapentin 300 mg bid; no adverse effects, pain is less frequent and less severe typically. Having it about 4 daysper week (used to be daily), more tolerable. She had a bad episode of pain yesterday after gardening. She continues on pancreatic enzymes for EPI. Gastric ulcers were treated. Elevated gastrin level normalized. The pancreatic enzymes have helped her bowels, less urgency, more formed. The abdominal pain can be sharp and stabbing, other times she describes it as a dull stabbing pain, it goes through to the back. Elevated gastrin -- 04/08/22 gastrin 415 (0-115). 05/20/22 gastrin 564, vitamin B12and folate were normal. 05/31/22 gastric emptying study is normal. 07/16/22 [id number]; so we discontinued PPI. 08/13/22 octreotide SPECT scan negative for neuroendocrine tumor.? 11/05/2022 gastrin 64. Remains on [id number]. Gastric ulcers -- Multiple gastric ulcers on EGD 05/2022, just one small gastric ulcer on EGD 10/2022. Previously on ASA and meloxicam. Dysphagia -- Esophageal stenosis dilated 05/01/22 but that didn't help dysphagia. 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 10/2022 EGD--no relief with botulinum injections and dilation of Schatzki ring. Modified barium swallow with speech therapist in January 2022 which showed retention throughout esophagus, slow emptying, and retrograde flow of bolus. Reese pH normal. 05/2022 EGD positive forBarrett's. Diarrhea -- Taking colestipol every other day, that helps to manage the diarrhea. No improvement in diarrhea since discontinuing PPI therapy 07/2022.? Pancreatic enzymes have helped with the diarrhea. NAFLD -- Liver stiffness 10.5 kPa compatible with F2 to F3. Comorbidities include: anxiety, DDD, depression, fibromyalgia, GERD, gout, dyslipidemia, hypersomnolence, HTN, MVP, obesity, osteoporosis, recurrent UTI, hypokalemia, SI joint pain, fatty liver, insomnia. Hx RA, saw Dr Padilla but insurance changed so she then went to [facility]--they told her she didn't have RA. Amitriptyline is for pain. ROS Const Constitutional: No fatigue ENT ENT: Positive for difficulty swallowing Gastro GI: Positive for abdominal pain, heartburn and difficulty swallowing; No belching, bloating, change in bowel habits, change in stool character, coffeeground emesis, constipation, cramping, diarrhea, feeling full early, excessive flatus, incontinent of stools, Vomiting blood/hematemesis, Blood in stool, loosestools, Black,tarry stools, nausea/dyspepsia, pain with swallowing, vomiting or other Musc Musculoskeletal: No joint pain Skin Skin: No yellowing of the eye or itchy eyes Psych Psychiatric: No anxiety and No depression Endo Endocrine: No fatigue Aller/Imm Allergy/Immunologic: No itchy eyes Woo/Lymp Hematologic/Lymphatic: No easy bleeding or easy bruising Exam Const General: cooperative and comfortable Nutritional Appearance: obese Orientation: alert, awake and oriented x3 Eyes Sclera: sclerae normal Resp Effort & Inspection: normal respiratory effort Neuro Gait: normal gait Psych Mood: euthymic mood Quality Reporting Tobacco Screening ([facility] 138) Smoking Status: Never smoker Assessment and Plan Assessment and Plan (1) Epigastric pain: Status: Chronic Plan: Gabapentin is helping, increase to 600 mg bid, call me in a month with an update, f/u 6 mos Will need to update EGD to f/u Rothman's Medications: Changed From gabapentin 300 mg PO BID 60 caps 2RF To gabapentin 600 mg (2 x 300 mg) PO BID 180 caps 3RF Discontinued prednisone Discontinued Reason: Order Completed 40 mg (2 x 20 mg) PO DAILY 10 tabs 0RF I have examined the patient and the H&P has been reviewed. There are no clinicalchanges since date of exam. Assessment & Plan Assessment/Plan (1) Barretts esophagus: QUALIFIERS: Rothman's esophagus type: without dysplasia QualifiedCode(s): K22.70 - Rothman's esophagus without dysplasia 10/27/23 1118 <Electronically signed by Casey Summers DO> Cosigner Signature (if applicable): CC: Dr. Ryan Leyva MD; Casey Summers DO~ Signed [facility] Work Phone: 1(895) 493-779711-27-2023 Procedure [facility] 10-27-2023 Procedure [facility]09-21-2023 Procedure note [facility]05-05-2022 NoteHNO ID: [id number] Author: Collin Garcia DPM Service: ? Author [...] cuff repair - PAST SURGICAL HISTORY OF 1980 ABCESS-RECTAL - PAST SURGICAL HISTORY OF Left left ankle sx. - PAST SURGICAL HISTORY OF Right 08/2017 right shoulder cuff - TOTAL ABDOMINAL HYSTERECT W/WO RMVL TUBE OVARY 2004 For bleeding, ovarian cyst; left ovary still in - TOTAL KNEE REPLACEMENT Right 07/2020 - XCAPSL CTRC RMVL INSJ IO LENS PROSTH W/O ECP 12/06/2011 Phacoemulsification/Intraocular Lens In (more content not included)...[facility]05-05-2022 NoteHNO ID: [id number] Author: Augusta Saavedra MA Service: ? Author Type: Utilization Manager Type: Progress Notes Filed: 04/14/2022 11:32 [...] for excessive bleeding, clots, bleeding disorders. Augusta Saavedra, [facility]05-05-2022 History of Present illness Narrative* Collin Garcia, DPM - 04/04/2022 3:37 PM EDT CC: Foot pain left foot Subjective: This 61 year old female with PMH indicated below presents for follow up diffuse pain toleft foot and ankle. She states she has had no relief since her last visit one year prior however she hoped with time the pain would improve or resolve. She admits to constant throbbing and aching throughout the day and bruning, tingling, pin and needles at night. She also states her foot swells ben ry night including all of her toes. She [...] Panic attacks Pre-diabetes Rheumatoid arthritis(714.0) Followed by Dr Ryder, [place] Skin cancer Current Outpatient Medications Medication Sig [...] BEDTIME NEEDED FOR SLEEP. TO LAST 90 DAYS.30 tablet 2 hydroCHLOROthiazide (HYDRODIURIL, ESIDRIX) 25 mg [...] 1 tablet by mouth once daily. (Patient nottaking: Reported on 03/01/2021 ) 30 tablet 0 [...] Laterality Date DILATION & CURETTAGE DX&/THER NONOBSTETRIC 2006 Dilation & curettage LAPAROSCOPIC APPENDECTOMY 11/20/2006 LAPS [...] mood. Resp 18 Ht 166.4 cm (5' 5.5") Wt 98.4 kg (217 lb) BMI 35.56 [...] b/l. Palpable bony prominence of the medial navicularof the left foot. Pain with palpation along the posterior tibial tendon. There is mild pain to palpation of the ankle gutters. There is pain to palpation of the dorsal midfoot over the first and second TMT joints. There is mild pain with midtarsal joint range of motion. The 2nd digit of the left iscontracted with a Flexion contracture at the PIPJ as well as an Extension type contracture at the metatarsophalangeal joint left foot. There is not callus formation noted under the adjacent metatarsop halangeal joint. The deformity is rigid. Ankle joint [...] are intact. No acute fxs or dislocations noted.There is evidence of left second contracted digit. [...] unless otherwise noted. Collin Garcia DPM, FACFAS * Augusta Saavedra MA - 04/04/2022 1:46 PM EDT REVIEW OF SYSTEMS: GENERAL: Well developed, well [...] disorders. Augusta Saavedra [facility] History of Past illness Narrative* Problem Noted Date Resolved Date Anterior tibialis tendonitis of left leg 018 12/19/2017 Gastrocnemius equinus, left 12/19/201712/01 Left foot drop 11/28/2017 12/19/2017 Laceration of extensor tendon of foot 06/12/2017 06/12/2017 Achilles tendinitis 07/17/2009 11/15/2011 documented as of this encounter (statuses as of 04/14/2022) [facility] History of Past illness Narrative* Problem Noted Date Resolved Date Anterior tibialis tendonitis of left leg 018 12/19/2017 Gastrocnemius equinus, left 12/19/201712/01 Left foot drop 11/28/2017 12/19/2017 Laceration of extensor tendon of foot 06/12/2017 06/12/2017 Achilles tendinitis 07/17/2009 11/15/2011 documented as of this encounter (statuses as of 04/25/2022) [facility] History of Past illness Narrative* Problem Noted Date Resolved Date Anterior tibialis tendonitis of left leg 018 12/19/2017 Gastrocnemius equinus, left 12/19/201712/01 Left foot drop 11/28/2017 12/19/2017 Laceration of extensor tendon of foot 06/12/2017 06/12/2017 Achilles tendinitis 07/17/2009 11/15/2011 documented as of this encounter (statuses as of 11/15/2022) [facility] Diagnosis Onset Date Resolution Status Osteopenia with high risk of fracture acute Recurrent UTI acute GERD (gastroesophageal reflux disease) chronic Swallowing disorder chronic Hypersomnolence acute Osteoporosis acute GERD (gastroesophageal reflux disease) chronic Swallowing disorder chronic [facility] Work Phone: Evaluation note* Diagnosis Onset Date Resolution Status Osteopenia with high risk of fracture acute Recurrent UTI acute GERD (gastroesophageal reflux disease) chronic Swallowing disorder chronic Hypersomnolence acute Osteoporosis acute GERD (gastroesophageal reflux disease) chronic Swallowing disorder chronic Abdominal pain acute Fatty liver acute Arthritis chronic Chronic diarrhea chronic Fibromyalgia chronic Swallowing disorder chronic [facility] Work Phone: Evaluation note* Diagnosis Chronic pain in left foot- Primary Pain in limb Complex regional pain syndrome type 1 of left lower extremity [facility] Diagnosis Onset Date Resolution Status Hypersomnolence acute Osteoporosis acute GERD (gastroesophageal reflux disease) chronic Swallowing disorder chronic Abdominal pain acute Fatty liver acute Arthritis chronic Chronic diarrhea chronic Fibromyalgia chronic Swallowing disorder chronic Elevated gastrin level acute Gastric ulcer acute GERD (gastroesophageal reflux disease) chronic [facility] Work Phone: Evaluation note* Diagnosis Onset Date Resolution Status Abdominal pain acute Fatty liver acute Arthritis chronic Chronic diarrhea chronic Fibromyalgia chronic Swallowing disorder chronic Elevated gastrin level acute Gastric ulcer acute GERD (gastroesophageal reflux disease) chronic Breast cancer screening acut e Depression with anxiety 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 GERD (gastroesophageal reflux disease) chronic Hypertension chronic Osteoporosis chronic Myalgia due to statin acute Chronic back pain chronic Chronic knee pain chronic Chronic neck pain chronic [facility] Work Phone: Evaluation note* Diagnosis Onset Date Resolution Status Abdominal pain acute Fatty liver acute Arthritis chronic Chronic diarrhea chronic Fibromyalgia chronic Swallowing disorder chronic Elevated gastrin level acute Gastric ulcer acute GERD (gastroesophageal reflux disease) chronic Breast cancer screening acut e Depression with anxiety 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 GERD (gastroesophageal reflux disease) chronic Hypertension chronic Osteoporosis chronic Myalgia due to statin acute Chronic back pain chronic Chronic knee pain chronic Chronic neck pain chronic Elevated gastrin level acute Gastric ulcer acute GERD (gastroesophageal reflux disease) chronic Swallowing disorder chronic [facility] Work Phone: Evaluation note* Diagnosis Onset Date Resolution Status Elevated gastrin level acute Gastric ulcer acute GERD (gastroesophageal reflux disease) chronic Breast cancer screening acut e Depression with anxiety 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 GERD (gastroesophageal reflux disease) chronic Hypertension chronic Osteoporosis chronic Myalgia due to statin acute Chronic back pain chronic Chronic knee pain chronic Chronic neck pain chronic Elevated gastrin level acute Gastric ulcer acute GERD (gastroesophageal reflux disease) chronic Swallowing disorder [facility] Work Phone: Evaluation note* Diagnosis Onset Date Resolution Status Elevated gastrin level acute Gastric ulcer chronic GERD (gastroesophageal reflux disease) chronic Swallowing disorder chronic Gastric ulcer chronic Hypertension chronic Insomnia chronic Osteoporosis [facility] Work Phone: Evaluation note* Diagnosis Onset Date Resolution Status Elevated gastrin level acute Gastric ulcer chronic GERD (gastroesophageal reflux disease) chronic Swallowing disorder chronic Gastric ulcer chronic Hypertension chronic Insomnia chronic Osteoporosis chronic Abdominal pain acute Chronic diarrhea [facility] Work Phone: Evaluation note* Diagnosis Onset Date Resolution Status Gastric ulcer chronic Hypertension chronic Insomnia chronic Osteoporosis chronic Abdominal pain acute Chronic diarrhea chronic Fatigue acute Tension headache [facility] Work Phone: Evaluation note* Diagnosis Onset Date Resolution Status Gastric ulcer chronic Hypertension chronic Insomnia chronic Osteoporosis chronic Abdominal pain acute Chronic diarrhea chronic Fatigue acute Tension headache chronic Depression with anxiety 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 Hypertension chronic Insomnia chronic Osteopenia with high risk of fracture [facility] Work Phone: Evaluation note* Diagnosis Onset Date Resolution Status Gastric ulcer chronic Hypertension chronic Insomnia chronic Osteoporosis chronic Abdominal pain acute Chronic diarrhea chronic Fatigue acute Tension headache chronic Depression with anxiety 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 Hypertension chronic Insomnia chronic Osteopenia with high risk of fracture chronic Degenerative disc disease, cervical acute [facility] Work Phone: Evaluation note* Diagnosis Onset Date Resolution Status Abdominal pain acute Chronic diarrhea chronic Fatigue acute Tension headache chronic Depression with anxiety 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 Hypertension chronic Insomnia chronic Osteopenia with high risk of fracture chronic Degenerative disc disease, cervical acute Elevated liver enzymes acute Hyperbilirubinemia acute Epigastric pain chronic [facility] Work Phone: Evaluation note* Diagnosis Onset Date Resolution Status Fatigue acute Tension headache chronic Depression with anxiety 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 Hypertension chronic Insomnia chronic Osteopenia with high risk of fracture chronic Degenerative disc disease, cervical acute Elevated liver enzymes acute Hyperbilirubinemia acute Epigastric pain chronic Bronchitis acute Anxiety and depression chron ic Hypertension chronic Insomnia chronic Osteoporosis chronic [facility] Work Phone: Evaluation note* Diagnosis Onset Date Resolution Status Anxiety and depression chron ic Chronic cough chronic GERD (gastroesophageal reflux disease) chronic Hypertension chronic Insomnia chronic [facility] Work Phone: Evaluation note* Diagnosis Onset Date Resolution Status Anxiety and depression chron ic Chronic cough chronic GERD (gastroesophageal reflux disease) chronic Hypertension chronic Insomnia chronic Barretts esophagus acute [facility] Work Phone: Evaluation note* Diagnosis Onset Date Resolution Status Barretts esophagus chronic Chronic cough chronic Dysphagia chronic GERONIMO (nonalcoholic steatohepatitis) chronic Burning with urination acute Pharyngitis acute Anxiety and depression chron ic Hypertension chronic Insomnia chronic [facility] Work Phone: Evaluation note* Diagnosis Onset Date Resolution Status Burning with urination acute Pharyngitis acute Anxiety and depression chron ic Hypertension chronic Insomnia chronic Allergic rhinitis acute Chronic cough chronic Eosinophilic asthma chronic Right knee pain acute Dysphagia chronic GERONIMO (nonalcoholic steatohepatitis) chronic Borderline type 2 diabetes mellitus chronic Fibromyalgia chronic Hypertension chronic Insomnia chronic Osteopenia with high risk of fracture chronic [facility] Work Phone: Hospital Discharge instructionsAmbulatory Orders* Allergy & Immunology Location: None Selected [facility] Work Phone: Reason for referral (narrative)* Diagnostic Procedure Only (Routine) - Authorized Specialty Diagnoses / Procedures Referred By Contmack t Referred To Contact US IMAGING Diagnoses Chronic pain in left foot Procedures US ARTERIAL PVR LOWER NON-INVASIVE PHYSIOLOGIC STUDY EXTREMITY 3 Collin Dolan DPM [address] [address] Us Imaging Referral ID Status Reason Start Date Expiration Date Visits Requested Visits Authorized [id number] Authorized Auto-Generat ed Referral 04/04/2022 05/04/2023 1 1 * Diagnostic Procedure Only (Routine) - Pending Review Specialty Diagnoses / Procedures Referred By Contac t Referred To Contact XR IMAGING Diagnoses Chronic pain in left foot Procedures XR FOOT GENERAL 3V AP/LAT/OBL LEFT RADEX FOOT COMPLETE MINIMUM 3 VIEWS Collin Garcia DPM [address] [address] Xr Imaging Referral ID Status Reason Start Date Expiration Date Visits Requested Visits Authorized [id number] Pending Review Auto-Generat ed Referral 04/04/2022 05/04/2023 1 [facility]No reason for referral [facility] Work Phone: Summary Purpose Family History No Family History Records Found Relationship Condition Age at Onset Recorded Date/T xavier grandfather Coronary artery disease Unknown Cardiac disease Unknown Myocardial infarction Unknown Hypertension Unknown Hyperlipidemia Unknown Anxiety and depression Unknown Malignant melanoma Unknown Diabetes mellitus Unknown grandmother Diabetes mellitus Unknown Arthritis Unknown Glaucoma Unknown Malignant neoplasm of breast Unknown father Alcoholism Unknown sister Cardiac disease Unknown Relationship Condition Age at Onset Recorded Date/T xavier grandfather Coronary artery disease Unknown Cardiac disease Unknown Myocardial infarction Unknown Hypertension Unknown Hyperlipidemia Unknown Anxiety and depression Unknown Malignant melanoma Unknown Diabetes mellitus Unknown grandmother Diabetes mellitus Unknown Arthritis Unknown Glaucoma Unknown Malignant neoplasm of breast Unknown father Alcoholism Unknown Disorder of respiratory system Unknown sister Cardiac disease Unknown Advance Directives No Advanced Directives Records Found Advance Directive Response Recorded Date/ Time Advance Directives No September 27, 2021 4:04pm Living Will Yes September 27 4:04pm Power of Director Of Slot Operations Yes September 27, 2021 4:04pm Documents on File Type Date Recorded Patient Sports Intern Expl anation Advance Directive(s) 12/19/2017 6:57 AM sc anned to documents Advance Directive(s) 12/19/2017 10:58 AM Documents on File Type Date Recorded Patient Sports Intern Expl anation Advance Directive(s) 12/19/2017 6:57 AM sc anned to documents Advance Directive(s) 12/19/2017 10:58 AM Advance Directive Response Recorded Date/ Time Advance Directives No September 27, 2021 4:04pm Living Will Yes April 25, 2022 8 :30am Power of Director Of Slot Operations Yes April 25, 2022 8:30am Advance Directive Response Recorded Date/ Time Name of Medical Power of Director Of Slot Operations DAUGHTER April 25, 2022 8:30am Advance Directives No September 27, 2021 4:04pm Living Will Yes April 25, 2022 8 :30am Power of Director Of Slot Operations Yes April 25, 2022 8:30am Advance Directive Response Recorded Date/ Time Advance Directives No September 27, 2021 3:04pm Living Will Yes April 25, 2022 7 :30am Power of Director Of Slot Operations Yes April 25, 2022 7:30am Advance Directive Response Recorded Date/ Time Name of Medical Power of Director Of Slot Operations AGNIESZKA CRENSHAW R October 16, 2022 2:34pm Advance Directives No September 27, 2021 3:04pm Living Will Yes October 16, 022 2:34pm Power of Director Of Slot Operations Yes October 16, 2022 2:34pm Documents on File Type Date Recorded Patient Sports Intern Expl anation Advance Directive(s) 12/19/2017 10:58 AM Advance Directive Response Recorded Date/ Time Name of Medical Power of Director Of Slot Operations AGNIESZKA CRENSHAW R October 16, 2022 3:34pm Advance Directives No September 27, 2021 4:04pm Living Will Yes October 16, 022 3:34pm Power of Director Of Slot Operations Yes October 16, 2022 3:34pm Advance Directive Response Recorded Date/ Time Advance Directives No September 27, 2021 4:04pm Living Will Yes October 16, 022 3:34pm Power of Director Of Slot Operations Yes October 16, 2022 3:34pm Advance Directive Response Recorded Date/ Time Advance Directives No September 27, 2021 4:04pm Living Will Yes July 02, 2023 9:26am Power of Director Of Slot Operations Yes July 02 9:26am Advance Directive Response Recorded Date/ Time Name of Medical Power of Director Of Slot Operations AGNIESZKA MCCORMACKNE R October 21, 2023 10:33am Advance Directives No September 27, 2021 3:04pm Living Will Yes October 21, 023 10:33am Power of Director Of Slot Operations Yes October 21, 2023 10:33am Advance Directive Response Recorded Date/ Time Name of Medical Power of Director Of Slot Operations AGNIESZKA Cantor October 21, 2023 10:33am Advance Directives No October 12:33pm Living Will Yes November 11, 023 12:33pm Power of Director Of Slot Operations Yes November 11, 2023 12:33pm Advance Directive Response Recorded Date/ Time Advance Directives No October 1:33pm Living Will Yes November 11, 2 023 1:33pm Power of Director Of Slot Operations Yes November 11, 2023 1:33pm Advance Directive Response Recorded Date/ Time Living Will Yes November 11, 2 023 1:33pm Do you have a Healthcare Power of Director Of Slot Operations? Yes November 11, 2023 1:33pm Living Will Yes January 20, 025 8:23pm Do you have a Healthcare Power of Director Of Slot Operations? Yes January 20, 2025 8:23pm Name of Medical Power of Director Of Slot Operations [email or web address] January 20, 2025 8:23pm Advance Directives No October 5:18pm Advance Directive Response Recorded Date/ Time Living Will Yes November 11 023 1:33pm Do you have a Healthcare Power of Director Of Slot Operations? Yes November 11, 2023 1:33pm Advance Directives No October 5:18pm Chief Complaint and Reason for Visit Chief Complaint Amb Documentation SCREENING discuss bone density SWALLOWING CONCERNS 6 M FU & Prolia buy&bill HYPERSOMNIA; LM 03/15 & 03/19 Reason for Visit Osteopenia with high risk of fracture Recurrent UTI GERD (gastroesophageal reflux disease) Swallowing disorder Hypersomnolence Osteoporosis GERD (gastroesophageal reflux disease) Swallowing disorder Chief Complaint SCREENING discuss bone density SWALLOWING CONCERNS 6 M FU & Prolia buy&bill HYPERSOMNIA; LM 03/15 & 03/19 Dysphagia EORDER E ORDER Reason for Visit Osteopenia with high risk of fracture Recurrent UTI GERD (gastroesophageal reflux disease) Swallowing disorder Hypersomnolence Osteoporosis GERD (gastroesophageal reflux disease) Swallowing disorder Abdominal pain Fatty liver Arthritis Chronic diarrhea Fibromyalgia Swallowing disorder Chief Complaint SCREENING discuss bone density SWALLOWING CONCERNS 6 M FU & Prolia buy&bill HYPERSOMNIA; LM 03/15 & 03/19 Dysphagia EORDER E ORDER ABDOMINAL PAIN FATTY LIVER Reason for Visit Osteopenia with high risk of fracture Recurrent UTI GERD (gastroesophageal reflux disease) Swallowing disorder Hypersomnolence Osteoporosis GERD (gastroesophageal reflux disease) Swallowing disorder Abdominal pain Fatty liver Arthritis Chronic diarrhea Fibromyalgia Swallowing disorder Chief Complaint 6 M FU & Prolia buy& bill HYPERSOMNIA; LM 03/15 & 03/19 Dysphagia EORDER E ORDER ABDOMINAL PAIN FATTY LIVER 2 WK FU EORDER EORDER ELEVATED GASTRIN LEVEL Reason for Visit Hypersomnolence Osteoporosis GERD (gastroesophageal reflux disease) Swallowing disorder Abdominal pain Fatty liver Arthritis Chronic diarrhea Fibromyalgia Swallowing disorder Elevated gastrin level Gastric ulcer GERD (gastroesophageal reflux disease) Chief Complaint HYPERSOMNIA; LM 03/15 & 03/19 Dysphagia EORDER E ORDER ABDOMINAL PAIN FATTY LIVER 2 WK FU EORDER EORDER ELEVATED GASTRIN LEVEL 3 M FU BILAT KNEES xray SCREENING Reason for Visit Abdominal pain Fatty liver Arthritis Chronic diarrhea Fibromyalgia Swallowing disorder Elevated gastrin level Gastric ulcer GERD (gastroesophageal reflux disease) Breast cancer screening Depression with anxiety GERD (gastroesophageal reflux disease) Hypertension Osteoporosis Myalgia due to statin Chronic back pain Chronic knee pain Chronic neck pain Chief Complaint Dysphagia EORDER E ORDER ABDOMINAL PAIN FATTY LIVER 2 WK FU EORDER EORDER ELEVATED GASTRIN LEVEL 3 M FU BILAT KNEES xray SCREENING 6 WK FU E ORDER Reason for Visit Abdominal pain Fatty liver Arthritis Chronic diarrhea Fibromyalgia Swallowing disorder Elevated gastrin level Gastric ulcer GERD (gastroesophageal reflux disease) Breast cancer screening Depression with anxiety GERD (gastroesophageal reflux disease) Hypertension Osteoporosis Myalgia due to statin Chronic back pain Chronic knee pain Chronic neck pain Elevated gastrin level Gastric ulcer GERD (gastroesophageal reflux disease) Swallowing disorder Chief Complaint ABDOMINAL PAIN FATTY LIVER 2 WK FU EORDER EORDER ELEVATED GASTRIN LEVEL 3 M FU BILAT KNEES xray SCREENING 6 WK FU E ORDER HYPERGASTRINEMIA, MULT GASTRIC ULCERS, BARRETTS ES Reason for Visit Elevated gastrin lev el Gastric ulcer GERD (gastroesophageal reflux disease) Breast cancer screening Depression with anxiety GERD (gastroesophageal reflux disease) Hypertension Osteoporosis Myalgia due to statin Chronic back pain Chronic knee pain Chronic neck pain Elevated gastrin level Gastric ulcer GERD (gastroesophageal reflux disease) Swallowing disorder Chief Complaint SCREENING 6 WK FU E ORDER HYPERGASTRINEMIA, MULT GASTRIC ULCERS, BARRETTS ES 3 M FU/PROLIA CERVICAL DD,RADIC,STENOSIS,SPONDYL. RX HERE Reason for Visit Elevated gastrin lev el Gastric ulcer GERD (gastroesophageal reflux disease) Swallowing disorder Gastric ulcer Hypertension Insomnia Osteoporosis Chief Complaint 6 WK FU E ORDER HYPERGASTRINEMIA, MULT GASTRIC ULCERS, BARRETTS ES 3 M FU/PROLIA CERVICAL DD,RADIC,STENOSIS,SPONDYL. RX HERE 6 WK FU E ORDER Reason for Visit Elevated gastrin lev el Gastric ulcer GERD (gastroesophageal reflux disease) Swallowing disorder Gastric ulcer Hypertension Insomnia Osteoporosis Abdominal pain Chronic diarrhea Chief Complaint 6 WK FU E ORDER HYPERGASTRINEMIA, MULT GASTRIC ULCERS, BARRETTS ES 3 M FU/PROLIA CERVICAL DD,RADIC,STENOSIS,SPONDYL. RX HERE 6 WK FU E ORDER INT LABSPEC Reason for Visit Elevated gastrin lev el Gastric ulcer GERD (gastroesophageal reflux disease) Swallowing disorder Gastric ulcer Hypertension Insomnia Osteoporosis Abdominal pain Chronic diarrhea Chief Complaint 3 M FU/PROLIA CERVICAL DD,RADIC,STENOSIS,SPONDYL. RX HERE 6 WK FU E ORDER INT LABSPEC ABD PAIN HEADACHES ABSENT PEDAL PULSES Reason for Visit Gastric ulcer Hypertension Insomnia Osteoporosis Abdominal pain Chronic diarrhea Fatigue Tension headache Chief Complaint 3 M FU/PROLIA CERVICAL DD,RADIC,STENOSIS,SPONDYL. RX HERE 6 WK FU E ORDER INT LABSPEC ABD PAIN HEADACHES ABSENT PEDAL PULSES CERVICAL RAD r/s from 1-23...3 m fu Reason for Visit Gastric ulcer Hypertension Insomnia Osteoporosis Abdominal pain Chronic diarrhea Fatigue Tension headache Depression with anxiety Hypertension Insomnia Osteopenia with high risk of fracture Chief Complaint 3 M FU/PROLIA CERVICAL DD,RADIC,STENOSIS,SPONDYL. RX HERE 6 WK FU E ORDER INT LABSPEC ABD PAIN HEADACHES ABSENT PEDAL PULSES CERVICAL RAD r/s from -23...3 m fu Cervical spine Room 1 Reason for Visit Gastric ulcer Hypertension Insomnia Osteoporosis Abdominal pain Chronic diarrhea Fatigue Tension headache Depression with anxiety Hypertension Insomnia Osteopenia with high risk of fracture Degenerative disc disease, cervical Chief Complaint 6 WK FU E ORDER INT LABSPEC ABD PAIN HEADACHES ABSENT PEDAL PULSES CERVICAL RAD r/s from -23...3 m fu Cervical spine Room 1 2 MO FU EPIGASTRIC PAIN Reason for Visit Abdominal pain Chronic diarrhea Fatigue Tension headache Depression with anxiety Hypertension Insomnia Osteopenia with high risk of fracture Degenerative disc disease, cervical Elevated liver enzymes Hyperbilirubinemia Epigastric pain Chief Complaint ABD PAIN HEADACHES ABSENT PEDAL PULSES CERVICAL RAD r/s from 1-23...3 m fu Cervical spine Room 1 2 MO FU EPIGASTRIC PAIN 3 m fu/Prolia Reason for Visit Fatigue Tension headache Depression with anxiety Hypertension Insomnia Osteopenia with high risk of fracture Degenerative disc disease, cervical Elevated liver enzymes Hyperbilirubinemia Epigastric pain Bronchitis Anxiety and depression Hypertension Insomnia Osteoporosis Chief Complaint 3 M FU Reason for Visit Anxiety and depressi on Chronic cough GERD (gastroesophageal reflux disease) Hypertension Insomnia Chief Complaint 3 M FU CHRONIC COUGH CHRONIC COUGH Reason for Visit Anxiety and depressi on Chronic cough GERD (gastroesophageal reflux disease) Hypertension Insomnia Chief Complaint 3 M FU CHRONIC COUGH CHRONIC COUGH PROLIA Reason for Visit Anxiety and depressi on Chronic cough GERD (gastroesophageal reflux disease) Hypertension Insomnia Barretts esophagus Chief Complaint PROLIA chronic cough First Visit 60 FOLLOW UP Reason for Visit Barretts esophagus Chronic cough Dysphagia GERONIMO (nonalcoholic steatohepatitis) Burning with urination Pharyngitis Anxiety and depression Hypertension Insomnia Chief Complaint FOLLOW UP 2 M FU 6 wk FU RIGHT KNEE room 1 4 MO FU 30 MIN 3 M FU Reason for Visit Burning with urinati on Pharyngitis Anxiety and depression Hypertension Insomnia Allergic rhinitis Chronic cough Eosinophilic asthma Right knee pain Dysphagia GERONIMO (nonalcoholic steatohepatitis) Borderline type 2 diabetes mellitus Fibromyalgia Hypertension Insomnia Osteopenia with high risk of fracture Chief Complaint FOLLOW UP 2 M FU 6 wk FU RIGHT KNEE room 1 4 MO FU 30 MIN 3 M FU INT LABS Reason for Visit Burning with urinati on Pharyngitis Anxiety and depression Hypertension Insomnia Allergic rhinitis Chronic cough Eosinophilic asthma Right knee pain Dysphagia GERONIMO (nonalcoholic steatohepatitis) Borderline type 2 diabetes mellitus Fibromyalgia Hypertension Insomnia Osteopenia with high risk of fracture Chief Complaint Admit Date 3 Month November 16, 2024 1:24pm SYNCOPE December 10, 2024 3 :46pm 3 m fu January 05, 2025 1 :51pm ENCEPHALOPATHY, SUSPECT METABOLIC 2NDARY TO UTI January 20, 2025 5:15pm ENCEPHALOPATHY, SUSPECT METABOLIC 2NDARY TO UTI January 21, 2025 8:53am ENCEPHALOPATHY, SUSPECT METABOLIC 2NDARY TO UTI January 22, 2025 11:38am follow up February 01, 2025 8:37 am 4 M FU February 01, 2025 10:5 3am G47.30 - Sleep apnea, unspecified February 03, 2025 12:46pm FALLS, WEAKNESS/RX W/PT February 09, 2025 10:51am 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 March 02, 2025 12:06pm Reason for Visit Admit Date Dysphagia November 16, 2024 1:24pm Metabolic dysfunction-associ ated steatotic liver disease (MASLD) November 16, 2024 1:24pm Anxiety and depression January 05 1:51pm Hypertension January 05, 2025 1 :51pm Insomnia January 05, 2025 1 :51pm Recurrent falls January 05, 2025 1 :51pm Type 2 diabetes mellitus January 05, 2 025 1:51pm Acute UTI January 20, 2025 5:15pm Encephalopathy January 20, 2025 5:15pm Falls frequently January 20, 2025 5:15pm B12 nutritional deficiency February 01 8:37am Confusion February 01, 2025 8:37 am Hypotension February 01, 2025 8:37 am Neck pain February 01, 2025 8:37 am Tension headache February 01, 2025 8:37 am Obstructive sleep apnea February 01, 2025 10:53am Eosinophilic asthma February 01, 2025 10:5 3am Chief Complaint Admit Date SYNCOPE December 10, 2024 3 :46pm 3 m fu January 05, 2025 1 :51pm ENCEPHALOPATHY, SUSPECT METABOLIC 2NDARY TO UTI January 20, 2025 5:15pm ENCEPHALOPATHY, SUSPECT METABOLIC 2NDARY TO UTI January 21, 2025 8:53am ENCEPHALOPATHY, SUSPECT METABOLIC 2NDARY TO UTI January 22, 2025 11:38am follow up February 01, 2025 8:37 am 4 M FU February 01, 2025 10:5 3am G47.30 - Sleep apnea, unspecified February 03, 2025 12:46pm FALLS, WEAKNESS/RX W/PT February 09, 2025 10:51am 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 March 02, 2025 12:06pm 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 March 09, 2025 12:41pm 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 March 17, 2025 8:17am Reason for Visit Admit Date Anxiety and depression January 05 1:51pm Hypertension January 05, 2025 1 :51pm Insomnia January 05, 2025 1 :51pm Recurrent falls January 05, 2025 1 :51pm Type 2 diabetes mellitus January 05, 2 025 1:51pm Acute UTI January 20, 2025 5:15pm Encephalopathy January 20, 2025 5:15pm Falls frequently January 20, 2025 5:15pm B12 nutritional deficiency February 01 8:37am Confusion February 01, 2025 8:37 am Hypotension February 01, 2025 8:37 am Neck pain February 01, 2025 8:37 am Tension headache February 01, 2025 8:37 am Obstructive sleep apnea February 01, 2025 10:53am Eosinophilic asthma February 01, 2025 10:5 3am Chief Complaint Admit Date 3 m fu January 05, 2025 1 :51pm ENCEPHALOPATHY, SUSPECT METABOLIC 2NDARY TO UTI January 20, 2025 5:15pm ENCEPHALOPATHY, SUSPECT METABOLIC 2NDARY TO UTI January 21, 2025 8:53am ENCEPHALOPATHY, SUSPECT METABOLIC 2NDARY TO UTI January 22, 2025 11:38am follow up February 01, 2025 8:37 am 4 M FU February 01, 2025 10:5 3am G47.30 - Sleep apnea, unspecified February 03, 2025 12:46pm FALLS, WEAKNESS/RX W/PT February 09, 2025 10:51am 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 March 02, 2025 12:06pm 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 March 09, 2025 12:41pm 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 March 17, 2025 8:17am FU March 30, 2025 1:3 9pm 2 M FU March 31, 2025 1:22pm 2 M FU April 08, 2025 11:06a m Reason for Visit Admit Date Anxiety and depression January 05 1:51pm Hypertension January 05, 2025 1 :51pm Insomnia January 05, 2025 1 :51pm Recurrent falls January 05, 2025 1 :51pm Type 2 diabetes mellitus January 05, 025 1:51pm Acute UTI January 20, 2025 5:15pm Encephalopathy January 20, 2025 5:15pm Falls frequently January 20, 2025 5:15pm B12 nutritional deficiency February 01 8:37am Confusion February 01, 2025 8:37 am Hypotension February 01, 2025 8:37 am Neck pain February 01, 2025 8:37 am Tension headache February 01, 2025 8:37 am Obstructive sleep apnea February 01, 2025 10:53am Eosinophilic asthma February 01, 2025 10:5 3am Dysphagia March 30, 2025 1:3 9pm Metabolic dysfunction-associ ated steatotic liver disease (MASLD) March 30, 2025 1:39pm B12 nutritional deficiency March 31, 2025 1:22pm Mild cognitive impairment March 31, 2025 1:22pm Insomnia March 31, 2025 1:22pm Tension headache March 31, 2025 1:22pm Allergic rhinitis April 08, 2025 11:06a m Obstructive sleep apnea April 08, 2025 11 :06am Eosinophilic asthma April 08, 2025 11:06a m Chief Complaint Admit Date 3 m fu January 05, 2025 1 :51pm ENCEPHALOPATHY, SUSPECT METABOLIC 2NDARY TO UTI January 20, 2025 5:15pm ENCEPHALOPATHY, SUSPECT METABOLIC 2NDARY TO UTI January 21, 2025 8:53am ENCEPHALOPATHY, SUSPECT METABOLIC 2NDARY TO UTI January 22, 2025 11:38am follow up February 01, 2025 8:37 am 4 M FU February 01, 2025 10:5 3am G47.30 - Sleep apnea, unspecified February 03, 2025 12:46pm FALLS, WEAKNESS/RX W/PT February 09, 2025 10:51am 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 March 02, 2025 12:06pm 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 March 09, 2025 12:41pm 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 March 17, 2025 8:17am FU March 30, 2025 1:3 9pm 2 M FU March 31, 2025 1:22pm 2 M FU April 08, 2025 11:06a m 3 M FU/PROLIA April 13, 2025 1:34p m Chief Complaint Admit Date 3 m fu January 05, 2025 1 :51pm ENCEPHALOPATHY, SUSPECT METABOLIC 2NDARY TO UTI January 20, 2025 5:15pm ENCEPHALOPATHY, SUSPECT METABOLIC 2NDARY TO UTI January 21, 2025 8:53am ENCEPHALOPATHY, SUSPECT METABOLIC 2NDARY TO UTI January 22, 2025 11:38am follow up February 01, 2025 8:37 am 4 M FU February 01, 2025 10:5 3am G47.30 - Sleep apnea, unspecified February 03, 2025 12:46pm FALLS, WEAKNESS/RX W/PT February 09, 2025 10:51am 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 March 02, 2025 12:06pm 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 March 09, 2025 12:41pm 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 March 17, 2025 8:17am FU March 30, 2025 1:3 9pm 2 M FU March 31, 2025 1:22pm 2 M FU April 08, 2025 11:06a m 3 M FU/PROLIA April 13, 2025 1:34p m PROLIA- $0 PT PROVIDED April 18, 2025 12 :47pm Reason for Visit Admit Date Anxiety and depression January 05 1:51pm Hypertension January 05, 2025 1 :51pm Insomnia January 05, 2025 1 :51pm Recurrent falls February 5th, 2025 1 :51pm Type 2 diabetes mellitus January 05, 2 025 1:51pm Acute UTI January 20, 2025 5:15pm Encephalopathy January 20, 2025 5:15pm Falls frequently January 20, 2025 5:15pm B12 nutritional deficiency February 01 8:37am Confusion February 01, 2025 8:37 am Hypotension February 01, 2025 8:37 am Neck pain February 01, 2025 8:37 am Tension headache February 01, 2025 8:37 am Obstructive sleep apnea February 01, 2025 10:53am Eosinophilic asthma February 01, 2025 10:5 3am Dysphagia March 30, 2025 1:3 9pm Metabolic dysfunction-associ ated steatotic liver disease (MASLD) March 30, 2025 1:39pm B12 nutritional deficiency March 31, 2025 1:22pm Mild cognitive impairment March 31, 2025 1:22pm Insomnia March 31, 2025 1:22pm Tension headache March 31, 2025 1:22pm Allergic rhinitis April 08, 2025 11:06a m Obstructive sleep apnea April 08, 2025 11 :06am Eosinophilic asthma April 08, 2025 11:06a m Encephalopathy April 13, 2025 1:34p m Anxiety and depression April 13, 2025 1: 34pm Hypertension April 13, 2025 1:34p m Insomnia April 13, 2025 1:34p m Type 2 diabetes mellitus April 13, 2025 1:34pm Osteoporosis April 18, 2025 12:47 pm Chief Complaint Admit Date 3 m fu January 05, 2025 1 :51pm ENCEPHALOPATHY, SUSPECT METABOLIC 2NDARY TO UTI January 20, 2025 5:15pm ENCEPHALOPATHY, SUSPECT METABOLIC 2NDARY TO UTI January 21, 2025 8:53am ENCEPHALOPATHY, SUSPECT METABOLIC 2NDARY TO UTI January 22, 2025 11:38am follow up February 01, 2025 8:37 am 4 M FU February 01, 2025 10:5 3am G47.30 - Sleep apnea, unspecified February 03, 2025 12:46pm FALLS, WEAKNESS/RX W/PT February 09, 2025 10:51am 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 March 02, 2025 12:06pm 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 March 09, 2025 12:41pm 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 March 17, 2025 8:17am FU March 30, 2025 1:3 9pm 2 M FU March 31, 2025 1:22pm 2 M FU April 08, 2025 11:06a m 3 M FU/PROLIA April 13, 2025 1:34p m PROLIA- $0 PT PROVIDED April 18, 2025 12 :47pm Re-est/clearance April 28, 2025 11:29 am Chief Complaint Admit Date 3 m fu January 05, 2025 1 :51pm ENCEPHALOPATHY, SUSPECT METABOLIC 2NDARY TO UTI January 20, 2025 5:15pm ENCEPHALOPATHY, SUSPECT METABOLIC 2NDARY TO UTI January 21, 2025 8:53am ENCEPHALOPATHY, SUSPECT METABOLIC 2NDARY TO UTI January 22, 2025 11:38am follow up February 01, 2025 8:37 am 4 M FU February 01, 2025 10:5 3am G47.30 - Sleep apnea, unspecified February 03, 2025 12:46pm FALLS, WEAKNESS/RX W/PT February 09, 2025 10:51am 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 March 02, 2025 12:06pm 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 March 09, 2025 12:41pm 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 March 17, 2025 8:17am FU March 30, 2025 1:3 9pm 2 M FU March 31, 2025 1:22pm 2 M FU April 08, 2025 11:06a m 3 M FU/PROLIA April 13, 2025 1:34p m PROLIA- $0 PT PROVIDED April 18, 2025 12 :47pm Re-est/clearance April 28, 2025 11:29 am Amb Documentation April 29, 2025 9:55a m CONCERN FOR SHINGLES May 04, 2025 10:1 8am Reason for Visit Admit Date Anxiety and depression January 05 1:51pm Hypertension January 05, 2025 1 :51pm Insomnia January 05, 2025 1 :51pm Recurrent falls January 05, 2025 1 :51pm Type 2 diabetes mellitus January 05, 2 025 1:51pm Acute UTI January 20, 2025 5:15pm Encephalopathy January 20, 2025 5:15pm Falls frequently January 20, 2025 5:15pm B12 nutritional deficiency February 01 8:37am Confusion February 01, 2025 8:37 am Hypotension February 01, 2025 8:37 am Neck pain February 01, 2025 8:37 am Tension headache February 01, 2025 8:37 am Obstructive sleep apnea February 01, 2025 10:53am Eosinophilic asthma February 01, 2025 10:5 3am Dysphagia March 30, 2025 1:3 9pm Metabolic dysfunction-associ ated steatotic liver disease (MASLD) March 30, 2025 1:39pm B12 nutritional deficiency March 31, 2025 1:22pm Mild cognitive impairment March 31, 2025 1:22pm Insomnia March 31, 2025 1:22pm Tension headache March 31, 2025 1:22pm Allergic rhinitis April 08, 2025 11:06a m Obstructive sleep apnea April 08, 2025 11 :06am Eosinophilic asthma April 08, 2025 11:06a m Encephalopathy April 13, 2025 1:34p m Anxiety and depression April 13, 2025 1: 34pm Hypertension April 13, 2025 1:34p m Insomnia April 13, 2025 1:34p m Type 2 diabetes mellitus April 13, 2025 1:34pm Osteoporosis April 18, 2025 12:47 pm Atherosclerotic vascular disease March 11:29am Dyslipidemia April 28, 2025 11:29 am Dyspnea on exertion April 28, 2025 11:29 am Hypertension April 28, 2025 11:29 am Morbid obesity with BMI of 40.0-44.9, ad ult April 28, 2025 11:29am Type 2 diabetes mellitus April 28, 2025 11:29am Preoperative cardiovascular examination April 28, 2025 11:29am Chief Complaint Admit Date ENCEPHALOPATHY, SUSPECT METABOLIC 2NDARY TO UTI January 20, 2025 5:15pm ENCEPHALOPATHY, SUSPECT METABOLIC 2NDARY TO UTI January 21, 2025 8:53am ENCEPHALOPATHY, SUSPECT METABOLIC 2NDARY TO UTI January 22, 2025 11:38am follow up February 01, 2025 8:37 am 4 M FU February 01, 2025 10:5 3am G47.30 - Sleep apnea, unspecified February 03, 2025 12:46pm FALLS, WEAKNESS/RX W/PT February 09, 2025 10:51am 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 March 02, 2025 12:06pm 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 March 09, 2025 12:41pm 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 March 17, 2025 8:17am FU March 30, 2025 1:3 9pm 2 M FU March 31, 2025 1:22pm 2 M FU April 08, 2025 11:06a m 3 M FU/PROLIA April 13, 2025 1:34p m PROLIA- $0 PT PROVIDED April 18, 2025 12 :47pm Re-est/clearance April 28, 2025 11:29 am Amb Documentation April 29, 2025 9:55a m CONCERN FOR SHINGLES May 04, 2025 10:1 8am 3 M FU May 18, 2025 3:12 pm Reason for Visit Admit Date Acute UTI January 20, 2025 5:15pm Encephalopathy January 20, 2025 5:15pm Falls frequently January 20, 2025 5:15pm B12 nutritional deficiency February 01 8:37am Confusion February 01, 2025 8:37 am Hypotension February 01, 2025 8:37 am Neck pain February 01, 2025 8:37 am Tension headache February 01, 2025 8:37 am Obstructive sleep apnea February 01, 2025 10:53am Eosinophilic asthma February 01, 2025 10:5 3am Dysphagia March 30, 2025 1:3 9pm Metabolic dysfunction-associ ated steatotic liver disease (MASLD) March 30, 2025 1:39pm B12 nutritional deficiency March 31, 2025 1:22pm Mild cognitive impairment March 31, 2025 1:22pm Insomnia March 31, 2025 1:22pm Tension headache March 31, 2025 1:22pm Allergic rhinitis April 08, 2025 11:06a m Obstructive sleep apnea April 08, 2025 11 :06am Eosinophilic asthma April 08, 2025 11:06a m Encephalopathy April 13, 2025 1:34p m Anxiety and depression April 13, 2025 1: 34pm Hypertension April 13, 2025 1:34p m Insomnia April 13, 2025 1:34p m Type 2 diabetes mellitus April 13, 2025 1:34pm Osteoporosis April 18, 2025 12:47 pm Atherosclerotic vascular disease March 11:29am Dyslipidemia April 28, 2025 11:29 am Dyspnea on exertion April 28, 2025 11:29 am Hypertension April 28, 2025 11:29 am Morbid obesity with BMI of 40.0-44.9, ad ult April 28, 2025 11:29am Type 2 diabetes mellitus April 28, 2025 11:29am Preoperative cardiovascular examination April 28, 2025 11:29am Allergic rhinitis May 18, 2025 3:12 pm Obstructive sleep apnea May 18, 2025 3:12pm Eosinophilic asthma May 18, 2025 3:12 pm Chief Complaint Admit Date follow up February 01, 2025 8:37 am 4 M FU February 01, 2025 10:5 3am G47.30 - Sleep apnea, unspecified February 03, 2025 12:46pm FALLS, WEAKNESS/RX W/PT February 09, 2025 10:51am 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 March 02, 2025 12:06pm 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 March 09, 2025 12:41pm 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 March 17, 2025 8:17am FU March 30, 2025 1:3 9pm 2 M FU March 31, 2025 1:22pm 2 M FU April 08, 2025 11:06a m 3 M FU/PROLIA April 13, 2025 1:34p m PROLIA- $0 PT PROVIDED April 18, 2025 12 :47pm Re-est/clearance April 28, 2025 11:29 am Amb Documentation April 29, 2025 9:55a m CONCERN FOR SHINGLES May 04, 2025 10:1 8am 3 M FU May 18, 2025 3:12 pm E-ORDER 2 ORDERING ROSALINDA May 18, 2025 4:27pm Reason for Visit Admit Date B12 nutritional deficiency February 01 8:37am Confusion February 01, 2025 8:37 am Hypotension February 01, 2025 8:37 am Neck pain February 01, 2025 8:37 am Tension headache February 01, 2025 8:37 am Obstructive sleep apnea February 01, 2025 10:53am Eosinophilic asthma February 01, 2025 10:5 3am Dysphagia March 30, 2025 1:3 9pm Metabolic dysfunction-associ ated steatotic liver disease (MASLD) March 30, 2025 1:39pm B12 nutritional deficiency March 31, 2025 1:22pm Mild cognitive impairment March 31, 2025 1:22pm Insomnia March 31, 2025 1:22pm Tension headache March 31, 2025 1:22pm Allergic rhinitis April 08, 2025 11:06a m Obstructive sleep apnea April 08, 2025 11 :06am Eosinophilic asthma April 08, 2025 11:06a m Encephalopathy April 13, 2025 1:34p m Anxiety and depression April 13, 2025 1: 34pm Hypertension April 13, 2025 1:34p m Insomnia April 13, 2025 1:34p m Type 2 diabetes mellitus April 13, 2025 1:34pm Osteoporosis April 18, 2025 12:47 pm Atherosclerotic vascular disease March 11:29am Dyslipidemia April 28, 2025 11:29 am Dyspnea on exertion April 28, 2025 11:29 am Hypertension April 28, 2025 11:29 am Morbid obesity with BMI of 40.0-44.9, ad ult April 28, 2025 11:29am Type 2 diabetes mellitus April 28, 2025 11:29am Preoperative cardiovascular examination April 28, 2025 11:29am Allergic rhinitis May 18, 2025 3:12 pm Obstructive sleep apnea May 18, 2025 3:12pm Eosinophilic asthma May 18, 2025 3:12 pm Additional Source Comments INFORMATION SOURCE (unrecogn ized section and content) DATE CREATED AUTHOR 05/27/2018 [facility] DATE CREATED AUTHOR AUTHOR'S ORGANIZ ATION 10/11/2019 [facility] DATE CREATED AUTHOR AUTHOR'S ORGANIZ ATION 04/17/2022 [facility] DATE CREATED AUTHOR AUTHOR'S ORGANIZ ATION 03/18/2023 [facility] ([place]) DATE CREATED AUTHOR AUTHOR'S ORGANIZ ATION 06/16/2025 [facility] Source Comments (unrecognize d section and content) In the event this informatio n is protected by the Federal Confidentiality of Alcohol and Drug Abuse Patient Records regulations: The Federal rules restrict any use of the information to criminally investigate or prosecute any alcohol or drug abuse patient.[facility] the event this information is protected by the Federal Confidentiality of Alcohol and Drug Abuse Patient Records regulations: The Federal rules restrict any use of the information to criminally investigate or prosecute any alcohol or drug abuse patient.[facility] the event this information is protected by the Federal Confidentiality of Alcohol and Drug Abuse Patient Records regulations: The Federal rules restrict any use of the information to criminally investigate or prosecute any alcohol or drug abuse patient.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 Ryan Leyva MD Family Provider Active Dr. Ryan Leyva MD Primary Care Provider Active Team Status: Inactive Member Role Status Dates Dr. Ryan Leyva MD Primary Care Ambar grijalva, Attending Provider, Referring Provider Active Team Status: Inactive Member Role Status Dates Dr. Ryan Leyva MD Primary Care Provider, Refer ring Provider Active Gretchen Dickens SIZING MACHINE TENDER, SIZING MACHINE TENDER-C Attending Provider Active Team Status: Inactive Member Role Status Dates Dr. Ryan Leyva MD Primary Care Provider, Refer ring Provider Active Dr. Joselito Bhandari MD Attending Provider Active Team Status: Active Member Role Status Dates Dr. Ryan Leyva MD Primary Care Provider, Refer ring Provider Active Dr. Casey Summers DO Attending Provider, Other Prov ider Active Team Status: Inactive Member Role Status Dates Dr. Ryan Leyva MD Primary Care Provider, Refer ring Provider Active Dr. Casey Summers DO Attending Provider Active Team Status: Inactive Member Role Status Dates Dr. Ryan Leyva MD Primary Care Provider Active Annie Vargas SIZING MACHINE TENDER, SIZING MACHINE TENDER-C Attending Provider, Referring Pr ovider Active Team Status: Inactive Member Role Status Dates Dr. Ryan Leyva MD Primary Care Provider Active Gretchen Dickens SIZING MACHINE TENDER, SIZING MACHINE TENDER-C Attending Provider Active Team Status: Inactive Member Role Status Dates Dr. Ryan Leyva MD Primary Care Provider Active Gretchen Dickens SIZING MACHINE TENDER, SIZING MACHINE TENDER-C Attending Provider, Referrin g Provider Active Team Status: Active Member Role Status Dates Dr. Ryan Leyva MD Primary Care Provider Active Dr. Joselito Bhandari MD Attending Provider, Referring Provider Active Team Status: Inactive Member Role Status Dates Dr. Ryan Leyva MD Primary Care Provider Active Dr. Joselito Bhandari MD Attending Provider, Referring Provider Active Team Status: Active Member Role Status Dates Dr. Ryan Leyva MD Primary Care Provider Active Dr. Guzman Yu MD Attending Provider Active Team Status: Active Member Role Status Dates Dr. Ryan Leyva MD Primary Care Provider Active Annie Vargas SIZING MACHINE TENDER, SIZING MACHINE TENDER-C Attending Provider, Referring Pr ovider Active Team Status: Inactive Member Role Status Dates Dr. Ryan Leyva MD Primary Care Provider, Refer ring Provider Active Dr. Wilton Dominguez DO Attending Provider Active Team Status: Inactive Member Role Status Dates Dr. Ryan Leyva MD Primary Care Provider Active Dr. Sim Branch MD Attending Provider Active Team Status: Active Member Role Status Dates Dr. Ryan Leyva MD Primary Care Provider Active Dr. Guzman Yu MD Attending Provider Active Dr. Joselito Bhandari MD Referring Provider Active Team Status: Inactive Member Role Status Dates Dr. Ryan Leyva MD Primary Care Provider, Atten ding Provider Active Team Status: Active Member Role Status Dates Dr. Ryan Leyav MD Primary Care P rovider, Referring Provider, Other Provider Active Dr. Kip Ortiz DO Attending Provider Active Team Status: Inactive Member Role Status Dates Dr. Ryan Leyva MD Primary Care Provider, Refer ring Provider Active Dr. Gala Arrington MD Attending Provider Active Team Status: Inactive Member Role Status Dates Dr. Ryan Leyva MD Primary Care Provider, Refer ring Provider Active Dr. Cristian Perales MD Attending Provider Active Team Status: Inactive Member Role Status Dates Dr. Ryan Leyva MD Primary Care Provider, Refer ring Provider Active Dr. Kip Ortiz DO Attending Provider Active Team Status: Inactive Member Role Status Dates Dr. Ryan Leyva MD Primary Care Provider, Refer ring Provider Active Leigh Sales SIZING MACHINE TENDER, SIZING MACHINE TENDER-C Attending Provider Active Team Status: Inactive Member Role Status Dates Dr. Ryan Leyva MD Primary Care Provider, Refer ring Provider Active Dr. Rob Colbert DO Attending Provider Active Team Status: Inactive Member Role Status Dates Dr. Ryan Leyva MD Primary Care Provider Active Leigh Sales SIZING MACHINE TENDER, SIZING MACHINE TENDER-C Attending Provider, Referrin g Provider Active Team Status: Active Member Role Status Dates Dr. Ryan Leyva MD Primary Care Provider Active Team Status: Inactive Member Role Status Dates Dr. Cristian Perales MD Attending Provider Active Start: November 16, 2024 End: November 16, 2024 Team Status: Inactive Member Role Status Dates Dr. Ryan Leyva MD Primary Care Provider Active Start: December 10, 2024 End: December 10, 2024 Dr. Ryan Leyva MD Attending Provider Active Start: December 10, 2024 End: December 10, 2024 Dr. Ryan Leyva MD Referring Provider Active Start: December 10, 2024 End: December 10, 2024 Team Status: Inactive Member Role Status Dates Dr. Ryan Leyva MD Attending Provider Active Start: January 05, 2025 End: January 05, 2025 Dr. Ryan Leyva MD Referring Provider Active Start: January 05, 2025 End: January 05, 2025 Team Status: Inactive Member Role Status Dates Dr. Maris Bland DO Referring Provider Active Start: January 20, 2025 End: January 22, 2025 Dr. Maris Bland DO Emergency Provider Active Start: January 20, 2025 End: January 22, 2025 Dr. Ryan Leyva MD Primary Care Provider Active Start: January 20, 2025 End: January 22, 2025 Dr. Ramila Chow MD Admit Provider Active Star t: January 20, 2025 End: January 22, 2025 Dr. Ramila Chow MD Other Provider Active Star t: January 20, 2025 End: January 22, 2025 Dr. Cristian Perales MD Attending Provider Active Start: January 20, 2025 End: January 22, 2025 Team Status: Active Member Role Status Dates Dr. Maris Bland DO Emergency Provider Active Start: January 21, 2025 Dr. Ryan Leyva MD Primary Care Provider Active Start: January 21, 2025 Dr. Ramila Chow MD Admit Provider Active Star t: January 21, 2025 Dr. Ramila Chow MD Other Provider Active Star t: January 21, 2025 Dr. Cristian Perales MD Attending Provider Active Start: January 21, 2025 Dr. Cristian Perales MD Other Provider Active Sta rt: January 21, 2025 Dr. Adri Simons MD Other Provider Active Start: January 21, 2025 Rona Curry MD Other Provider Active Start : January 21, 2025 Dr. Orlando Castillo MD Other Provider Active Start: January 21, 2025 Dr. Moises Larson MD Other Provider Active Start : January 21, 2025 Cam Cruz MD Other Provider Active Start: [id number] Dr. Bobo Laird MD Other Provider Active Sta rt: January 21, 2025 Dr. Rogers Avalos MD Other Provider Active St art: January 21, 2025 Fracisco Casillas MD Other Provider Active Start: January 21, 2025 Yojana Kang MD Other Provider Active Start : January 21, 2025 Dr. Eb Braga MD Other Provider Active Star t: January 21, 2025 Dr. Mary Ellen Polanco DO Other Provider Active St art: January 21, 2025 Dr. Veronika Hicks MD Other Provider Active Start : January 21, 2025 Dr. Miky Newell MD Other Provider Active St art: January 21, 2025 Dr. Majo Retana MD Other Provider Active Start: January 21, 2025 Dr. Gretel Olivo MD Other Provider Active Start : January 21, 2025 Dr. Nick Ibrahim MD Other Provider Active Sta rt: January 21, 2025 Dr. Shantell Stauffer MD Other Provider Active Sta rt: January 21, 2025 Dr. Han Haywood MD Other Provider Active St art: January 21, 2025 Dr. Lizz Leonardo MD Other Provider Active Start: January 21, 2025 Dr. Neelima Sosa MD Other Provider Active Start: January 21, 2025 Team Status: Active Member Role Status Dates Dr. Maris Bland DO Emergency Provider Active Start: January 22, 2025 Dr. Ryan Leyva MD Primary Care Provider Active Start: January 22, 2025 Dr. Ramila Chow MD Admit Provider Active Star t: January 22, 2025 Dr. Ramila Chow MD Other Provider Active Star t: January 22, 2025 Dr. Cristian Perales MD Attending Provider Active Start: January 22, 2025 Dr. Cristian Perales MD Other Provider Active Sta rt: January 22, 2025 Cam Cruz MD Other Provider Active Start: Francia baxter 2024 Dr. Adri Simons MD Other Provider Active Start: January 22, 2025 Yojana Kang MD Other Provider Active Start : January 22, 2025 Dr. Mary Ellen Polanco DO Other Provider Active St art: January 22, 2025 Dr. Neelima Sosa MD Other Provider Active Start: January 22, 2025 Dr. Bobo Laird MD Other Provider Active Sta rt: January 22, 2025 Dr. Veronika Hicks MD Other Provider Active Start : January 22, 2025 Dr. Orlando Castillo MD Other Provider Active Start: January 22, 2025 Dr. Moises Larson MD Other Provider Active Start : January 22, 2025 Dr. Nick Ibrahim MD Other Provider Active Sta rt: January 22, 2025 Rona Curry MD Other Provider Active Start : January 22, 2025 Dr. Rogers Avalos MD Other Provider Active St art: January 22, 2025 Dr. Gretel Olivo MD Other Provider Active Start : January 22, 2025 Dr. Shantell Stauffer MD Other Provider Active Sta rt: January 22, 2025 Dr. Lizz Leonardo MD Other Provider Active Start: January 22, 2025 Dr. Han Haywood MD Other Provider Active St art: January 22, 2025 Dr. Eb Braga MD Other Provider Active Star t: January 22, 2025 Dr. Miky Newell MD Other Provider Active St art: January 22, 2025 Dr. Majo Retana MD Other Provider Active Start: January 22, 2025 Fracisco Casillas MD Other Provider Active Start: January 22, 2025 Team Status: Inactive Member Role Status Dates Dr. Joselito Bhandari MD Attending Provider Active Start: February 01, 2025 End: February 01, 2025 Dr. Ryan Leyva MD Primary Care Provider Active Start: February 01, 2025 End: February 01, 2025 Dr. Ryan Leyva MD Referring Provider Active Start: February 01, 2025 End: February 01, 2025 Team Status: Inactive Member Role Status Dates Dr. Ryan Leyva MD Primary Care Provider Active Start: February 01, 2025 End: February 01, 2025 Dr. Ryan Leyva MD Referring Provider Active Start: February 01, 2025 End: February 01, 2025 KINSEY Neal Attending Provider Active Start: February 01, 2025 End: February 01, 2025 Team Status: Inactive Member Role Status Dates Dr. Ryan Leyva MD Primary Care Provider Active Start: February 03, 2025 End: February 03, 2025 KINSEY Neal Attending Provider Active Start: February 03, 2025 End: February 03, 2025 KINSEY Neal Referring Provider Active Start: February 03, 2025 End: February 03, 2025 Team Status: Active Member Role Status Dates Dr. Ryan Leyva MD Primary Care Provider Active Start: February 09, 2025 Dr. Cristian Perales MD Attending Provider Active Start: February 09, 2025 Dr. Cristian Perales MD Referring Provider Active Start: February 09, 2025 Team Status: Inactive Member Role Status Dates Dr. Ryan Leyva MD Primary Care Provider Active Start: March 02, 2025 End: March 02, 2025 Zoraida Patricio SIZING MACHINE TENDER-C Attending Provider Active Start: March 02, 2025 End: March 02, 2025 Zoraida Patricio NP-C Referring Provider Active Start: March 02, 2025 End: March 02, 2025 Team Status: Active Member Role Status Dates Dr. Ryan Leyva MD Primary Care Provider Active Start: March 09, 2025 Zoraida Patricio NP-C Referring Provider Active Start: March 09, 2025 Zoraida Patricio NP-C Other Provider Active St art: March 09, 2025 Dr. Kip Ortiz DO Attending Provider Active S tart: March 09, 2025 Team Status: Inactive Member Role Status Dates Dr. Ryan Leyva MD Primary Care Provider Active Start: March 17, 2025 End: March 17, 2025 Zoraida Patricio NP-C Attending Provider Active Start: March 17, 2025 End: March 17, 2025 Zoraida Patricio NP-C Referring Provider Active Start: March 17, 2025 End: March 17, 2025 Team Status: Inactive Member Role Status Dates Dr. Ryan Leyva MD Primary Care Provider Active Start: February 09, 2025 End: February 09, 2025 Dr. Cristian Perales MD Attending Provider Active Start: February 09, 2025 End: February 09, 2025 Dr. Cristian Perales MD Referring Provider Active Start: February 09, 2025 End: February 09, 2025 Team Status: Inactive Member Role Status Dates Dr. Ryan Leyva MD Primary Care Provider Active Start: March 30, 2025 End: March 30, 2025 Dr. Ryan Leyva MD Referring Provider Active Start: March 30, 2025 End: March 30, 2025 Dr. Cristian Perales MD Attending Provider Active Start: March 30, 2025 End: March 30, 2025 Team Status: Inactive Member Role Status Dates Dr. Ryan Leyva MD Primary Care Provider Active Start: March 31, 2025 End: March 31, 2025 Dr. Ryan Leyva MD Referring Provider Active Start: March 31, 2025 End: March 31, 2025 Dr. Joselito Bhandari MD Attending Provider Active Start: March 31, 2025 End: March 31, 2025 Team Status: Inactive Member Role Status Dates Dr. Ryan Leyva MD Primary Care Provider Active Start: April 08, 2025 End: April 08, 2025 Dr. Ryan Leyva MD Referring Provider Active Start: April 08, 2025 End: April 08, 2025 RADHA NealC Attending Provider Active Start: April 08, 2025 End: April 08, 2025 Team Status: Inactive Member Role Status Dates Dr. Ryan Leyva MD Primary Care Provider Active Start: April 13, 2025 End: April 13, 2025 Dr. Ryan Leyva MD Attending Provider Active Start: April 13, 2025 End: April 13, 2025 Dr. Ryan Leyva MD Referring Provider Active Start: April 13, 2025 End: April 13, 2025 Team Status: Active Member Role Status Dates Dr. Ryan Leyva MD Primary Care Provider Active Start: April 13, 2025 Dr. Ryan Leyva MD Attending Provider Active Start: April 13, 2025 Dr. Ryan Leyva MD Referring Provider Active Start: April 13, 2025 Team Status: Inactive Member Role Status Dates Dr. Ryan Leyva MD Primary Care Provider Active Start: April 18, 2025 End: April 18, 2025 Dr. Ryan Leyva MD Referring Provider Active Start: April 18, 2025 End: April 18, 2025 BIM NURSE Attending Provider Active Start: In 2024 End: April 18, 2025 Team Status: Inactive Member Role Status Dates Dr. Ryan Leyva MD Primary Care Provider Active Start: April 18, 2025 End: April 18, 2025 Dr. Ryan Leyva MD Attending Provider Active Start: April 18, 2025 End: April 18, 2025 Dr. Ryan Leyva MD Referring Provider Active Start: April 18, 2025 End: April 18, 2025 Team Status: Inactive Member Role Status Dates Dr. Ryan Leyva MD Primary Care Provider Active Start: April 28, 2025 End: April 28, 2025 Dr. Ryan Leyva MD Referring Provider Active Start: April 28, 2025 End: April 28, 2025 Dr. Latseha Srinivasan MD Attending Provider Active Start: April 28, 2025 End: April 28, 2025 Team Status: Active Member Role Status Dates Dr. Ryan Leyva MD Primary Care Provider Active Start: April 29, 2025 Javi Almendarez RN Attending Provider Active St art: April 29, 2025 Team Status: Inactive Member Role Status Dates Dr. Ryan Leyva MD Primary Care Provider Active Start: May 04, 2025 End: May 04, 2025 Dr. Ryan Leyva MD Referring Provider Active Start: May 04, 2025 End: May 04, 2025 Johann MUIR, [place] Attending Provider Active Start: May 04, 2025 End: May 04, 2025 Team Status: Inactive Member Role Status Dates Dr. Ryan Leyva MD Primary Care Provider Active Start: May 18, 2025 End: May 18, 2025 Dr. Ryan Leyva MD Referring Provider Active Start: May 18, 2025 End: May 18, 2025 KINSEY Neal Attending Provider Active Start: May 18, 2025 End: May 18, 2025 Team Status: Inactive Member Role Status Dates Dr. Ryan Leyva MD Primary Care Provider Active Start: May 18, 2025 End: May 18, 2025 Dr. Ryan Leyva MD Attending Provider Active Start: May 18, 2025 End: May 18, 2025 Dr. Ryan Leyva MD Referring Provider Active Start: May 18, 2025 End: May 18, 2025 Dr. Latesha Srinivasan MD Other Provider Active Star t: May 18, 2025 End: May 18, 2025 FOR RECORDS PERTAINING TO PATIENTS WHO ARE [...] BE BASED ON THE PRIMARY CLINICAL RECORDS. [employer] provides no warranty or guarantee of the accuracy or completeness of information in this document.
--- NOTE | 2025-06-23 07:25 | ECHOD_ITS ---
Reason For Study Reason For Study: DYSPNEA Procedure This was a 2D Doppler, Color Flow transthoracic echocardiogram. Exam performed in department. Left Ventricle Normal size and thickness. The LV ejection fraction is 65 %. Diastolic function is indeterminate. Right Ventricle Normal right ventricle. Atria The left atrium is moderately enlarged. Normal right atrium. Mitral Valve Trivial mitral valve insufficiency. Tricuspid Valve Normal tricuspid valve. Unable to estimate RV systolic pressure due to inadequate jet, pulmonary artery pressure probably normal. Aortic Valve Trisinus/trileaflet aortic valve. Pulmonic Valve The pulmonic valve is not well visualized. Great Vessels Normal sized aortic root. Pericardium/Pleural No pericardial effusion. MMode/2D Measurements & Calculations LVIDd: 4.6 cm IVSd: 0.73 cm Ao root diam: 3.5 cm LVPWd: 1.1 cm LA dimension: 4.7 cm LAV(MOD-bp): 60.8 ml LVAd ap4: 23.5 cm2 SV(MOD-sp4): 43.4 ml LAV(MOD-bp) Indexed: 30.5 ml/m2 LVLd ap4: 7.1 cm SI(MOD-sp4): 21.8 ml/m2 LAV(MOD-sp2): 62.3 ml EDV(MOD-sp4): 63.4 ml LAV(MOD-sp4): 51.2 ml EDV(sp4-el): 66.0 ml LVAs ap4: 11.4 cm2 LVLs ap4: 5.5 cm ESV(MOD-sp4): 20.0 ml ESV(sp4-el): 20.0 ml EF(MOD-sp4): 68.5 % EF(sp4-el): 69.7 % SV(sp4-el): 46.0 ml LA A4 area: 19.8 cm2 LA dimension(2D): 4.2 cm RA A4 area: 10.2 cm2 Time Measurements MV dec time: 0.22 sec Doppler Measurements & Calculations MV E max jeff: 66.2 cm/sec Lat Peak E' Jeff: 7.6 cm/sec Med Peak E' Jeff: 6.1 cm/sec MV A max jeff: 86.5 cm/sec E/E' lat: 8.7 E/E' med: 10.8 MV E/A: 0.77 MV V2 max: 88.6 cm/sec Ao V2 max: 143.6 cm/sec MV max P.1 mmHg MV dec slope: 314.4 cm/sec2 Ao max P.3 mmHg MV V2 mean: 53.9 cm/sec Ao V2 mean: 100.0 cm/sec MV mean P.3 mmHg Ao mean P.6 mmHg MV V2 VTI: 23.2 cm Ao V2 VTI: 30.9 cm AV (velocity ratio): 0.86 LV V1 max: 120.3 cm/sec PA V2 max: 120.2 cm/sec LV V1 max P.8 mmHg PA V2 mean: 84.6 cm/sec LV V1 mean P.3 mmHg LV V1 mean: 84.6 cm/sec LV V1 VTI: 26.6 cm ECHO/Echo Complete Interpretation Summary The LV ejection fraction is 65 %. Diastolic function is indeterminate. The left atrium is moderately enlarged. Ordering Physician: Latesha Srinivasan Referring Physician: Latesha Srinivasan Performed By: Kenisha Melendrez RCS
[2025-06-23 08:40] LABS: Hematocrit 43.7 % (37-47); Hemoglobin 14.7 g/dL (12.0-15.0); Immature Granulocytes Count 0.100 X10^3/uL (0.0-0.0); Mean Corp Hgb Conc 33.6 g/dL (32-36); Mean Corpuscular Volume 91.8 fL (81-99); Mean Platelet Vol. 10.0 fl (6.2-12.0); NRBC Flagged by Analyzer 0 % (0-5); Platelet Count 232 K/mm3 (150-450); RBC Distribution Width CV 12.9 % (11.6-14.6); RBC Distribution Width SD 43.7 fl (35.1-43.9); Red Blood Count 4.76 M/mm3 (4.2-5.4); White Blood Count 13.5 K/mm3 (4.4-11.0)
[2025-06-23 08:50] LABS: Prothrombin Time (Protime)PT. 13.7 SECONDS (11.7-14.9)
[2025-06-23 09:55] LABS: AST(SGOT) 27 U/L (<=31); Alanine Aminotransfer ALT/SGPT 26 U/L (<=34); Albumin, Serum 4.4 g/dL (3.4-4.8); Alkaline Phosphatase 51 U/L (35-104); Anion Gap 16 (5-15); BUN 14 mg/dL (4-19); BUN/Creat Ratio 18.0 RATIO (10-20); Calcium,Total 9.8 mg/dL (7.6-11.0); Carbon Dioxide 20.1 mmol/L (21.0-32.0); Chloride 100 mmol/L (98-108); Cholesterol 104 mg/dL (<=200); Globulin 3.3 g/dL (2.2-4.2); Glucose 145 mg/dL (70-99); Low Density Lipoprotein Calc. 39 mg/dL; Potassium 4.1 mmol/L (3.3-5.1); Triglycerides 72 mg/dL; Very Low Density Lipoprotein 14 mg/dL (5-40); Vitamin B12 242 pg/mL (180-914); cholesterol:hdl ratio screen 2.06
[2025-06-23 09:56] LABS: CRP < 3.00 mg/L (0.0-3.0)
--- NOTE | 2025-06-27 13:48 | STRESSREP_ITS ---
Stress Test Report Date: 06/23/2025 Procedure: Pharmacologic stress nuclear imaging study Indications: Dyspnea on exertion Consent: Per the patient Procedure: The patient underwent pharmacologic (Regadenoson 0.4mg ) evaluation with a peak heart rate of 92 beats per minute (59%predicted maximal heart rate) and a peak blood pressure of 120/82 mmHg. The baseline ECG demonstrated sinus rhythm. The peak pharmacologic ECG did not show any ischemic changes. There were no cardiac dysrhythmias pretest, during pharmacologic infusion, or recovery. There was no complaint of chest discomfort during pharmacologic infusion or recovery. The patient was injected with 14.3 millicuries of technetium 99m Cardiolite and subsequently rest SPECT Cardiolite nuclear imaging was obtained in the horizontal long, vertical long, and short axis views. The patient underwent pharmacologic (Regadenoson) evaluation. The patient was injected with 45.0 millicuries of technetium 99m Cardiolite and subsequently stress SPECT Cardiolite nuclear imaging was obtained in the horizontal long, vertical long, and short axis views. A gated Cardiolite study at peak stress was obtained. The examination was stopped secondary to completion of protocol. Rest and stress SPECT Cardiolite nuclear imaging status post realignment, normalization, and attenuation correction demonstrate no fixed or reversible perfusion defects. There is end systolic thickening and brightening. The gated Cardiolite study demonstrates myocardial thickening and inward wall motion. The reported LVEF is 84%. Impression: 1. Pharmacologic (Regadenoson) evaluation 2. Peak pharmacologic ECG with no ischemic changes. 3. There were no cardiac dysrhythmias pretest, during pharmacologic infusion, or recovery. 5. Rest and stress SPECT Cardiolite nuclear imaging demonstrate relative uniform tracer uptake and myocardial perfusion appearing within normal limits. 6. The gated Cardiolite study reports an LVEF of 84%. This note was generated with [employer]oc[employer] software. It may contain incorrect words, spelling, and punctuation that were not noted in checking the note before signing.
== END | disposition home or self-care (01) ==
LOC: CVS 07:13
PROVIDERS: Internal Medicine; PCP Internal Medicine; Referring Provider Internal Medicine Cardiovascular Disease; Visit Provider Internal Medicine Cardiovascular Disease
DX: R06.09 Other forms of dyspnea (principal); K74.60 Unspecified cirrhosis of liver; E11.9 Type 2 diabetes mellitus without complications; E53.8 Deficiency of other specified B group vitamins; R74.8 Abnormal levels of other serum enzymes; E55.9 Vitamin D deficiency, unspecified; E78.00 Pure hypercholesterolemia, unspecified; I10 Essential (primary) hypertension
CPT/HCPCS: 36415; 78452; 80053; 80061; 82607; 83036; 85025; 85610; 86140; 93017; 93306; A9500; A4216; J2785

== ENCOUNTER → 2025-06-29 | Outpatient (CLI) | payer MEDICARE, SELFPAY | END | disposition home or self-care (01) | LOC: SL 19:59 | PROVIDERS: PCP Internal Medicine; Referring Provider Nurse Practitioner Family; Visit Provider Nurse Practitioner Family | DX: G47.33 Obstructive sleep apnea (adult) (pediatric) (principal) | CPT/HCPCS: 95811 ==

== ENCOUNTER → 2025-07-14 | Outpatient (CLI) | payer MEDICARE, SELFPAY | END | disposition home or self-care (01) | LOC: SL 16:41 | PROVIDERS: PCP Internal Medicine; Referring Provider Nurse Practitioner Family; Visit Provider Nurse Practitioner Family | DX: Z46.89 Encounter for fitting and adjustment of other specified devices (principal) ==

== ENCOUNTER → 2025-08-10 | Outpatient (CLI) | payer MEDICARE, SELFPAY ==
--- NOTE | 2025-08-10 12:41 | RAD_ITS ---
PROCEDURE: HIP, UNI W/ PELVIS 2-3 VIEWS 08/10/2025 REASON FOR EXAM: HIP PAIN TECHNIQUE: Procedure Code: RADHP Modality: DX Procedure: HIP, UNI W/ PELVIS 2-3 VIEWS Laterality: Right COMPARISON: None. RAD/HIP, UNI W/ Pelvis 2-3 Views IMPRESSION: Of the visualized lower lumbar spine, significant disc degeneration is noted. Mild symmetric sacroiliac joint degenerative changes are seen. Mild degenerative changes of the hip joints are seen, without associated signif icant joint narrowing. No evidence of femoral head osteonecrosis. No fracture or disc space narrowing is seen. Reading Location: [place] [id number]
== END | disposition home or self-care (01) ==
LOC: MTRAD 12:38
PROVIDERS: PCP Internal Medicine; Referring Provider Clinical Nurse Specialist Adult Health; Visit Provider Clinical Nurse Specialist Adult Health
DX: M25.551 Pain in right hip (principal)
CPT/HCPCS: 73502

== ENCOUNTER 2025-08-24 12:32 | Day surgery (SDC) | payer MEDICARE, SELFPAY ==
--- NOTE | 2025-08-18 16:20 | PAT.ANE_ITS ---
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 When Was Last Pacemaker Check QUESTION #4 FULL TEXT: You/Your Family Experience fever (hyperthermia) with Anesthesia Last Oral Intake Last Oral intake: Last Oral Intake NPO since Meds taken in AM with sips of water? 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 Has anyone observed you stop breathing during sleep? STOP Results Positive 08/18/25 14:41 QUESTION #5 FULL TEXT : Do you snore loudly (louder than talking or can be heard through closed doors)? 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 Specify any problems Hx of Preganancy in last 3 No 08/18/25 14:41 Months Nurse Filling Out Transfusion DSCHRIBER 08/18/25 14:41 & Questions: Date: 08/18/25 08/18/25 14:41 Time: 14:42 08/18/25 14:41 Patient unable to answer at this time (ie. 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 driver Hx Now Gestational Age (in weeks): EDC: Hx Hx Para Hx Section SAB No 08/18/25 14:41 PFSH Medical History (Updated 08/18/25 @ 14:50 by Nayeli Glez) History of renal disease Asthma History of pain when walking Recurrent falls Pain Syncope and collapse Pharyngitis CPAP (continuous positive airway pressure) dependence Chronic cough Ulcer Infection with methicillin-resistant Staphylococcus aureus (MRSA) Insomnia Breast cancer screening Elevated gastrin level History of stress test Cardiology follow-up encounter Hypergastrinemia Fatty liver Abdominal pain Chronic diarrhea Osteoporosis Hypersomnolence Swallowing disorder Osteopenia with high risk of fracture Wears hearing aid Wears glasses Cancer High cholesterol Restless legs Gastric reflux Non-smoker History of echocardiogram History of irregular heartbeat Incidental lung nodule, > 3mm and < 8mm Bilateral sacroiliitis Sacroiliac joint pain Recurrent UTI Post-menopausal Educated about COVID-19 virus infection Cervical radiculopathy Routine health maintenance Epigastric pain Back pain Difficulty balancing Fatigue Diabetes History of suicide attempt Anxiety History of MRSA infection Potassium (K) deficiency Arthritis History of gout History of skin cancer Obesity (BMI 30-39.9) Nonrheumatic mitral valve prolapse Hyperlipidemia Hypertension Fibromyalgia Depression Rheumatoid arthritis Home Medications Medication Instructions Recorded Last Taken Type L.acidophilus,gasseri,rhamnos-B.bifidum,long 1 cap PO BID Supplement 12/06/21 01/19/25 20:23 History 1.5 billion cell capsule 1 cap (Probiotic Digestive Support (Lacto,Bifido)) spacer #1 ea 03/11/24 Unknown Rx blood-glucose meter (FreeStyle #1 ea 06/17/24 Unknown Rx Lite Meter kit) denosumab 60 mg/mL subcutaneous 60 mg subcut [id number] Osteoporosis 10/04/24 08/31/24 10:00 Rx syringe (Prolia) #1 mL 60 mg blood sugar diagnostic (FreeStyle #100 ea 10/07/24 Unk nown Rx Lite Strips) blood sugar diagnostic (OneTouch #200 ea 10/12/24 Unkn own Rx Verio test strips) cetirizine 10 mg tablet 10 mg PO DAILY PRN allergy 1 12/12/23 01/17/25 08:00 Rx symptoms #90 tabs 10 mg lancets 28 gauge (FreeStyle #200 ea 10/15/24 Unknown R x Lancets) fluticasone propionate 50 2 spray intranasal DAILY All ergies 11/05/24 01/19/25 20:22 Rx mcg/actuation nasal #16 grams 2 spray spray,suspension Onetouch Verio Lancing Device #200 ea 12/08/24 Unknown Rx fluticasone furoate 200 1 inh inhalation QDAY #60 ea 02/02/25 Unknown Rx mcg-vilanterol 25 mcg/dose inhalation powder (Breo Ellipta) losartan 25 mg tablet 25 mg PO QDAY #90 tabs 04/28 Unknown Rx albuterol sulfate 90 mcg/actuation 2 puff inhalation Q 4H PRN 05/24/25 Unknown Rx aerosol inhaler shortness of breath or wheez ing #8.5 grams cholecalciferol (vitamin D3) 125 5,000 unit PO QDAY Myers pplement #90 05/24/25 Unknown Rx mcg (5,000 unit) capsule caps famotidine 40 mg tablet 40 mg PO DAILY 3 months #90 tabs 05/24/25 Unknown Rx montelukast 10 mg tablet 10 mg PO QPM #30 tabs Unknown Rx spironolactone 50 mg tablet 50 mg PO QAM #90 tabs 05/02 03/25 Unknown Rx thiamine HCl (vitamin B1) 100 mg 100 mg PO DAILY 1 mon th #30 tabs 05/24/25 Unknown Rx tablet 3 mL syringe with 1 inch 25-gauge #5 ea 05/25/25 Unkno wn Rx needle cyanocobalamin (vitamin B-12) 1,000 mcg subcut QMONTH B12 05/25/25 Unknown Rx 1,000 mcg/mL injection solution deficiency (E53.8) #1 mL metoclopramide HCl 5 mg tablet 5 mg PO TIDWMEAL 3 nerissa hs #270 tabs 07/20/25 Unknown Rx metformin 500 mg tablet,extended 500 mg PO QDAY Diabet es #30 tabs 08/02/25 Unknown Rx release 24 hr glucosamine sulfate 500 mg tablet 500 mg PO BID Unknown History (Glucosamine) rosuvastatin 20 mg tablet 20 mg PO QHS 08/18/25 Unknow n History trazodone 50 mg tablet 50 mg PO QHS 08/18/25 Unknow n History Allergy/AdvReac Type Severity Reaction Status Date / Time paroxetine (From Paxil) Allergy suicidal Verified 08/18/25 14:38 thoughts bupropion (From Wellbutrin) AdvReac Severe suicidal Verified 08/18/25 14:38 thoughts oxycodone HCl (From Percocet) AdvReac Itching Verified 08/18/25 14:38 Penicillins AdvReac YEAST Verified 08/18/25 14:38 INFECTION Family History Grandfather CAD (coronary artery disease) Heart disease Myocardial infarction Hypertension Hyperlipemia Anxiety and depression Melanoma Diabetes Grandmother Diabetes Arthritis Glaucoma Breast cancer Father Alcoholism Respiratory disease Sister Heart disease Surgical History (Updated 08/18/25 @ 14:50 by Nayeli Glez) History of esophagogastroduodenoscopy (EGD) Hx of right cataract extraction History of esophagogastroduodenoscopy (EGD) Hx of kyphoplasty History of cardiac catheterization History of right knee joint replacement History of left heart catheterization (~10/04/11) Status post cataract extraction and insertion of intraocular lens left ankle surgery History of appendectomy Hx of cholecystectomy History of hysterectomy H/O repair of right rotator cuff (~08/2017) Social History household members: none housing: house Smoking Status: Never smoker second hand exposure: No alcohol intake: current alcohol intake frequency: holidays/special occasions only substance use type: does not use what type of physical activity do you participate in: none angela/zoroastrian: Yarsani seatbelt use: always Audit: Pertinent Findings Pertinent Findings EKG Perinent findings: 01/20/2025. Normal sinus rhythm. Stress test pertinent findings: 06/23/2025. EF of 84%. No ischemia. No infarct. Echo (EF%) pertinent findings: 06/23/2025. EF of 65% no aortic stenosis noted. Consult pertinent findings: 04/28/2025. Dr. Srinivasan. 1. Preoperative cardiovascular exam-patient is acceptable risk for proposed EGD. May proceed without awaiting any cardiac workup. 2. Dyspnea on exertion-check stress test. Check echo. 3. Atherosclerotic vascular disease-atherosclerotic aorta reported on chest x- ray. Risk factor modification. Statins. Diabetic control 4. Hypertension-patient is diabetic. Recommend stop nifedipine and start losartan. Additional pertinent findings: 14-day event monitor. October 12, 2024. Baseline rhythm is normal sinus with rare PVC. 4 events reported during sinus rhythm. Recommendation Anesthesia Recommendation Anesthesia recommendation: OPTIMIZED for anesthesia
[2025-08-24] VITALS (8 sets, daily range): BP systolic 96–118; BP diastolic 46–78; PULSE 79–89; RESP 16–20; TEMP 36.3–37; O2SAT 93–98; BMI 32.1
[2025-08-24] MEDS: Lactated Ringers 1,000 ML 15 ML IV (12:59)
--- NOTE | 2025-08-24 13:33 | PRE.ANES_ITS ---
ASA Classification* ASA Classification ASA Classification: 2 Assessment & Plan Anesthesia* Anesthesia Assessment Anesthesia Assessment: Discussed sedation and/or anesthesia options, risks, benefits, and alternatives with patient/parents/legal guardian/POA. Questions invited. The patient/parents/legal guardian/POA seems to understand and agrees to proceed with anesthesia plan. Reviewed the physical assessment, medical history, allergy history and patient home medications list prior to surgery/procedure/anesthetic and documented any changes. Performed airway and anesthesia risk assessments. Anesthesia Type Anesthesia Type: MAC History Source History Obtained from:: Patient and Chart Anesthesia Focused Assessment* Temperature: 97.6 F Pulse Rate: 89 Blood Pressure: 118/78 Respiratory Rate: 16 Pulse Ox: 98 Oxygen Delivery Method: Room Air Airway Assessment Mouth opens: >3 cm Mallampati Score: II Teeth Condition: Missing Neck Range of motion (ROM): Limited ROM Labs Anesthesia Preop lab: CBC WBC, (4.4-11.0) 13.5 K/mm3 H 06/23/25, 07:22 RBC, (4.2-5.4) 4.76 M/mm3 06/23/25, 07:22 Hgb, (12.0-15.0) 14.7 g/dL 06/23/25, 07:22 Hct, (37-47) 43.7 % 06/23/25, 07:22 Plt Count, (150-450) 232 K/mm3 06/23/25, 07:22 CHEMISTRY Potassium, (3.3-5.1) 4.1 mmol/L 06/23/25, 07:22 Sodium, (133-145) 136 mmol/L 06/23/25, 07:22 Magnesium, (1.6-2.6) 2.4 mg/dL 06/28/20, 14:44 BUN, (4-19) 14 mg/dL 06/23/25, 07:22 Creatinine, (0.70-1.20) 0.79 mg/dL 06/23/25, 07:22 Glucose, (70-99) 145 mg/dL H 06/23/25, 07:22 POC Glucose, (74-106) 124 mg/dL H Today, 12:55 TSH, (0.300-4.200) 2.070 uIU/mL 04/13/25, 14:34 COAG PT, (11.7-14.9) 13.7 SECONDS 06/23/25, 07:22 Pre-Assessment Diagnosis/Proposed Procedure Planned Operative Procedure(s): EGD WITH BOTOX Anesthesia History 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 When Was Last Pacemaker Check QUESTION #4 FULL TEXT: You/Your Family Experience fever (hyperthermia) with Anesthesia Last Oral Intake Last Oral intake: Last Oral Intake NPO since :08/24/25 12:51 Meds taken in AM with sips of No 08/24/25 12:51 water? 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 - brain wave technician: PONV - brain wave technician Female Yes 08/18/25 14:41 HX of Motion Sickness No 08/18/25 14:41 HX of N/V After Surgery No 08/18/25 14:41 Non-Smoker Yes 08/18/25 14:41 Duration of Surgery greater No 08/18/25 14:41 than 60 minutes Number of Risk Factors 2 08/18/25 14:41 PONV Score Moderate Risk 08/18/25 14:41 Height & Weight Height & Weight: Anesthesia: Height & Weight Height 5 ft 5.5 in 08/24/25 12:51 Weight: 89 kg 08/24/25 12:51 Body Mass Index (BMI) 32.1 08/24/25 12:51 Respiratory Assessment Respiratory Assessment - brain wave technician: Respiratory Tract Infection Hx - brain wave technician Hx Respiratory Tract Infection No 08/18/25 14:41 STOP Sleep Apnea STOP Sleep Apnea - brain wave technician: STOP Sleep Apnea - brain wave technician Hx Hypertension Yes: CONTROLLED WITH MED 08/18/25 14:41 Hx Sleep Apnea Yes 08/18/25 14:41 CPAP Yes 08/18/25 14:41 BIPAP No 08/18/25 14:41 Do you snore loudly (louder than talking or can be heard Do you often feel tired/ fatigued/ sleepy during daytime? Has anyone observed you stop breathing during sleep? STOP Results Positive 08/18/25 14:41 QUESTION #5 FULL TEXT : Do you snore loudly (louder than talking or can be heard through closed doors)? 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 Specify any problems Hx of Preganancy in last 3 No 08/18/25 14:41 Months Nurse Filling Out Transfusion DSCHRIBER 08/18/25 14:41 & Questions: Date: 08/18/25 08/18/25 14:41 Time: 14:42 08/18/25 14:41 Patient unable to answer at this time (ie. confused, unrespo /Reproduction History /Reproductive History - brain wave technician: /Reproductive Hx- brain wave technician Hx Now Gestational Age (in weeks): EDC: Hx Hx Para Hx Section SAB No 08/18/25 14:41 Active Medications Active Medications: Current Medications Generic Name Dose Route Start Last Admin Trade Name Freq PRN Reason Stop Dose Admin Lactated Ringer's 1,000 mls @ 15 mls/hr 08/24/25 12:45 08/24/25 12:59 IV 15 mls/hr .Q48H JANINA Administration PFSH Medical History History of renal disease Asthma History of pain when walking Recurrent falls Pain Syncope and collapse Pharyngitis CPAP (continuous positive airway pressure) dependence Chronic cough Ulcer Infection with methicillin-resistant Staphylococcus aureus (MRSA) Insomnia Breast cancer screening Elevated gastrin level History of stress test Cardiology follow-up encounter Hypergastrinemia Fatty liver Abdominal pain Chronic diarrhea Osteoporosis Hypersomnolence Swallowing disorder Osteopenia with high risk of fracture Wears hearing aid Wears glasses Cancer High cholesterol Restless legs Gastric reflux Non-smoker History of echocardiogram History of irregular heartbeat Incidental lung nodule, > 3mm and < 8mm Bilateral sacroiliitis Sacroiliac joint pain Recurrent UTI Post-menopausal Educated about COVID-19 virus infection Cervical radiculopathy Routine health maintenance Epigastric pain Back pain Difficulty balancing Fatigue Diabetes History of suicide attempt Anxiety History of MRSA infection Potassium (K) deficiency Arthritis History of gout History of skin cancer Obesity (BMI 30-39.9) Nonrheumatic mitral valve prolapse Hyperlipidemia Hypertension Fibromyalgia Depression Rheumatoid arthritis Home Medications Medication Instructions Recorded Last Taken Type L.acidophilus,gasseri,rhamnos-B.bifidum,long 1 cap PO BID Supplement 12/06/21 01/19/25 20:23 History 1.5 billion cell capsule 1 cap (Probiotic Digestive Support (Lacto,Bifido)) spacer #1 ea 03/11/24 Unknown Rx blood-glucose meter (FreeStyle #1 ea 06/17/24 Unknown Rx Lite Meter kit) denosumab 60 mg/mL subcutaneous 60 mg subcut [id number] Osteoporosis 10/04/24 08/31/24 10:00 Rx syringe (Prolia) #1 mL 60 mg blood sugar diagnostic (FreeStyle #100 ea 10/07/24 Unk nown Rx Lite Strips) blood sugar diagnostic (OneTouch #200 ea 10/12/24 Unkn own Rx Verio test strips) cetirizine 10 mg tablet 10 mg PO DAILY PRN allergy 1 12/12/23 01/17/25 08:00 Rx symptoms #90 tabs 10 mg lancets 28 gauge (FreeStyle #200 ea 10/15/24 Unknown R x Lancets) fluticasone propionate 50 2 spray intranasal DAILY All ergies 11/05/24 01/19/25 20:22 Rx mcg/actuation nasal #16 grams 2 spray spray,suspension Onetouch Verio Lancing Device #200 ea 12/08/24 Unknown Rx fluticasone furoate 200 1 inh inhalation QDAY #60 ea 02/02/25 Unknown Rx mcg-vilanterol 25 mcg/dose inhalation powder (Breo Ellipta) losartan 25 mg tablet 25 mg PO QDAY #90 tabs 04/28 Unknown Rx albuterol sulfate 90 mcg/actuation 2 puff inhalation Q 4H PRN 05/24/25 Unknown Rx aerosol inhaler shortness of breath or wheez ing #8.5 grams cholecalciferol (vitamin D3) 125 5,000 unit PO QDAY Myers pplement #90 05/24/25 Unknown Rx mcg (5,000 unit) capsule caps famotidine 40 mg tablet 40 mg PO DAILY 3 months #90 tabs 05/24/25 Unknown Rx montelukast 10 mg tablet 10 mg PO QPM #30 tabs Unknown Rx spironolactone 50 mg tablet 50 mg PO QAM #90 tabs 05/02 03/25 Unknown Rx thiamine HCl (vitamin B1) 100 mg 100 mg PO DAILY 1 mon th #30 tabs 05/24/25 Unknown Rx tablet 3 mL syringe with 1 inch 25-gauge #5 ea 05/25/25 Unkno wn Rx needle cyanocobalamin (vitamin B-12) 1,000 mcg subcut QMONTH B12 05/25/25 Unknown Rx 1,000 mcg/mL injection solution deficiency (E53.8) #1 mL metoclopramide HCl 5 mg tablet 5 mg PO TIDWMEAL 3 nerissa hs #270 tabs 07/20/25 Unknown Rx metformin 500 mg tablet,extended 500 mg PO QDAY Diabet es #30 tabs 08/02/25 Unknown Rx release 24 hr glucosamine sulfate 500 mg tablet 500 mg PO BID Unknown History (Glucosamine) rosuvastatin 20 mg tablet 20 mg PO QHS 08/18/25 Unknow n History trazodone 50 mg tablet 50 mg PO QHS 08/18/25 Unknow n History Allergy/AdvReac Type Severity Reaction Status Date / Time paroxetine (From Paxil) Allergy suicidal Verified 08/24/25 12:50 thoughts bupropion (From Wellbutrin) AdvReac Severe suicidal Verified 08/24/25 12:50 thoughts oxycodone HCl (From Percocet) AdvReac Itching Verified 08/24/25 12:50 Penicillins AdvReac YEAST Verified 08/24/25 12:50 INFECTION Family History Grandfather CAD (coronary artery disease) Heart disease Myocardial infarction Hypertension Hyperlipemia Anxiety and depression Melanoma Diabetes Grandmother Diabetes Arthritis Glaucoma Breast cancer Father Alcoholism Respiratory disease Sister Heart disease Surgical History History of esophagogastroduodenoscopy (EGD) Hx of right cataract extraction History of esophagogastroduodenoscopy (EGD) Hx of kyphoplasty History of cardiac catheterization History of right knee joint replacement History of left heart catheterization (~10/04/11) Status post cataract extraction and insertion of intraocular lens left ankle surgery History of appendectomy Hx of cholecystectomy History of hysterectomy H/O repair of right rotator cuff (~08/2017) Social History household members: none housing: house Smoking Status: Never smoker second hand exposure: No alcohol intake: current alcohol intake frequency: holidays/special occasions only substance use type: does not use what type of physical activity do you participate in: none angela/hindu: Jehovah'S Witness seatbelt use: always Review of Systems (Anesthesia) ROS Narrative System reviewed and no additional complaints, except as documented.
--- NOTE | 2025-08-24 13:48 | PCM.HP.STD ---
HPI - General General Date of Admission: 08/24/25 Date of Service: 08/24/25 Chief Complaint: Achalasia HPI Narrative NATALIA MARQUEZ, is a 65 F who presents to the office today for follow up. f/u recurrent epigastric pain. Extensive w/u hasn't revealed a specific cause. Normal right upper quadrant ultrasound, normal HIDA, normal MRCP, gastric emptying study normal. At last appt 01/2023 we started gabapentin 300 mg bid; no adverse effects, pain is less frequent and less severe typically. Having it about 4 days per week (used to be daily), more tolerable. She had a bad episode of pain yesterday after gardening. She continues on pancreatic enzymes for EPI. Gastric ulcers were treated. Elevated gastrin level normalized. The pancreatic enzymes have helped her bowels, less urgency, more formed. The abdominal pain can be sharp and stabbing, other times she describes it as a dull stabbing pain, it goes through to the back. Elevated gastrin -- 04/08/22 gastrin 415 (0-115). 05/20/22 gastrin 564, vitamin B12 and folate were normal. 05/31/22 gastric emptying study is normal. 07/16/22 gastrin 871; so we discontinued PPI. 08/13/22 octreotide SPECT scan negative for neuroendocrine tumor. 11/05/2022 gastrin 64. Remains on [id number]. Gastric ulcers -- Multiple gastric ulcers on EGD 05/2022, just one small gastric ulcer on EGD 10/2022. Previously on ASA and meloxicam. Dysphagia -- Esophageal stenosis dilated 05/01/22 but that didn't help dysphagia. 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 10/2022 EGD--no relief with botulinum injections and dilation of Schatzki ring. Modified barium swallow with speech therapist in January 2022 which showed retention throughout esophagus, slow emptying, and retrograde flow of bolus. Reese pH normal. 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 Diarrhea -- Taking colestipol every other day, that helps to manage the diarrhea. No improvement in diarrhea since discontinuing PPI therapy 07/2022. Pancreatic enzymes have helped with the diarrhea. NAFLD -- Liver stiffness 10.5 kPa compatible with F2 to F3. Comorbidities include: anxiety, DDD, depression, fibromyalgia, GERD, gout, dyslipidemia, hypersomnolence, HTN, MVP, obesity, osteoporosis, recurrent UTI, hypokalemia, SI joint pain, fatty liver, insomnia. Hx RA, saw Dr Padilla but insurance changed so she then went to [facility] Rhe[facility]--they told her she didn't have RA. Amitriptyline is for pain. EGD 10.27.23- Abnormal esophageal motility, inj botox, LA Grade A reflux esophagitis with no bleeding, Med. hiatal hernia, Duodenitis- chronic inflammation, neg metaplasia OV 11.11.23- Pt doing very well since last visit. Swallowing is much better after EGD w/ Botox. Mild dysphagia difficulty with meat, bread and dry food. Intermittent epigastric about GE junction and hurts, about 8/10, stabbing quality or contraction type about 2 times weak. Denies HB. Does have epigastric pain a couple times a week. BM are normal once a day. Takes colestipol prn. No other complaints. Fib-4 . 0.81 OV 4..- Pt stable since last visit. Continues to have mild dysphagia with certain foods LIKE dry and solid , bread. Occasional heartburn but has non periodical sharp, stabbing pain and goes through in back. No nausea or Vomiting. Continues to have epigastric pain but is tolerable. BM are normal. No diarrhea. Continues Colestipol prn. 07.08.24 Fib-4 1.37 US abd/ elastography 07.16.24- Liver measures 17.5cm Stiffness 9.9 kPa OV 07.26.24 Pt here for f/u fatty liver. Pt reports trouble swallowing, heartburn, nausea, diarrhea for the past 2-3 weeks. Bruises easily lately. Denies blood in stools. Pt takes Famotidine daily. Did not take colestipol or zenpep that was ordered. No significant abdominal pain but more problems with esophageal dysphagia and has to drink water. EGD 10.26.24- Abnormal esophageal motility suspicious for achalasia- injected with botox, Small hiatal hernia, Gastroparesis - No specimines collected 10.21.24 Fib-4 0.80 OV 12..24- Pt well since last visit. States swallowing is better but continues to have heartburn and epigastric pain. Takes Famotidine 40mg qd. States BM are better. Is not having diarrhea. Tried Rezdiffra but states it gave her diarrhea and abdominal cramps. Was also too expensive OV 03.30.25 Continued difficulty swallowing. Complain of nausea, increased fullness over stomach, delayed emptying and bloating sensation. ED 01/2025 frequents falls and confusion. Since hospitalization vitamins were added and not tolerating well. 7.24.- Fib-4 1.51 OV 8..- Pt complaining of increased heartburn, reflux and dysphagia. Currently taking Famotidine but is not helpful. Has constant epigastric pain. States bowels are either constipated of episodes of watery diarrhea. Denies dark or bloody stools. [facility] Medical History History of renal disease Asthma History of pain when walking Recurrent falls Pain Syncope and collapse Pharyngitis CPAP (continuous positive airway pressure) dependence Chronic cough Ulcer Infection with methicillin-resistant Staphylococcus aureus (MRSA) Insomnia Breast cancer screening Elevated gastrin level History of stress test Cardiology follow-up encounter Hypergastrinemia Fatty liver Abdominal pain Chronic diarrhea Osteoporosis Hypersomnolence Swallowing disorder Osteopenia with high risk of fracture Wears hearing aid Wears glasses Cancer High cholesterol Restless legs Gastric reflux Non-smoker History of echocardiogram History of irregular heartbeat Incidental lung nodule, > 3mm and < 8mm Bilateral sacroiliitis Sacroiliac joint pain Recurrent UTI Post-menopausal Educated about COVID-19 virus infection Cervical radiculopathy Routine health maintenance Epigastric pain Back pain Difficulty balancing Fatigue Diabetes History of suicide attempt Anxiety History of MRSA infection Potassium (K) deficiency Arthritis History of gout History of skin cancer Obesity (BMI 30-39.9) Nonrheumatic mitral valve prolapse Hyperlipidemia Hypertension Fibromyalgia Depression Rheumatoid arthritis Home Medications Medication Instructions Recorded Last Taken Type L.acidophilus,gasseri,rhamnos-B.bifidum,long 1 cap PO BID Supplement 12/06/21 01/19/25 20:23 History 1.5 billion cell capsule 1 cap (Probiotic Digestive Support (Lacto,Bifido)) spacer #1 ea 03/11/24 Unknown Rx blood-glucose meter (FreeStyle #1 ea 06/17/24 Unknown Rx Lite Meter kit) denosumab 60 mg/mL subcutaneous 60 mg subcut [id number] Osteoporosis 10/04/24 08/31/24 10:00 Rx syringe (Prolia) #1 mL 60 mg blood sugar diagnostic (FreeStyle #100 ea 10/07/24 Unknown Rx Lite Strips) blood sugar diagnostic (OneTouch #200 ea 10/12/24 Unknown Rx Verio test strips) cetirizine 10 mg tablet 10 mg PO DAILY PRN allergy 10/12/24 01/17/25 08:00 Rx symptoms #90 tabs 10 mg lancets 28 gauge (FreeStyle #200 ea 10/15/24 Unknown Rx Lancets) fluticasone propionate 50 2 spray intranasal DAILY Allergies 11/05/24 01/19/25 20:22 Rx mcg/actuation nasal #16 grams 2 spray spray,suspension Onetouch Verio Lancing Device #200 ea 12/08/24 Unknown Rx fluticasone furoate 200 1 inh inhalation QDAY #60 ea 02/02/25 Unknown Rx mcg-vilanterol 25 mcg/dose inhalation powder (Breo Ellipta) losartan 25 mg tablet 25 mg PO QDAY #90 tabs 04/28/25 Unknown Rx albuterol sulfate 90 mcg/actuation 2 puff inhalation Q4H PRN 05/24/25 Unknown Rx aerosol inhaler shortness of breath or wheezing #8.5 grams cholecalciferol (vitamin D3) 125 5,000 unit PO QDAY Supplement #90 05/24/25 Unknown Rx mcg (5,000 unit) capsule caps famotidine 40 mg tablet 40 mg PO DAILY 3 months #90 tabs 05/24/25 Unknown Rx montelukast 10 mg tablet 10 mg PO QPM #30 tabs 05/24/25 Unknown Rx spironolactone 50 mg tablet 50 mg PO QAM #90 tabs 05/24/25 Unknown Rx thiamine HCl (vitamin B1) 100 mg 100 mg PO DAILY 1 month #30 tabs 05/24/25 Unknown Rx tablet 3 mL syringe with 1 inch 25-gauge #5 ea 05/25/25 Unknown Rx needle cyanocobalamin (vitamin B-12) 1,000 mcg subcut QMONTH B12 05/25/25 Unknown Rx 1,000 mcg/mL injection solution deficiency (E53.8) #1 mL metoclopramide HCl 5 mg tablet 5 mg PO TIDWMEAL 3 months #270 tabs 07/20/25 Unknown Rx metformin 500 mg tablet,extended 500 mg PO QDAY Diabetes #30 tabs 08/02/25 Unknown Rx release 24 hr glucosamine sulfate 500 mg tablet 500 mg PO BID 08/15/25 Unknown History (Glucosamine) rosuvastatin 20 mg tablet 20 mg PO QHS 08/18/25 Unknown History trazodone 50 mg tablet 50 mg PO QHS 08/18/25 Unknown History Allergy/AdvReac Type Severity Reaction Status Date / Time paroxetine (From Paxil) Allergy suicidal Verified 08/24/25 12:50 thoughts bupropion (From Wellbutrin) AdvReac Severe suicidal Verified 08/24/25 12:50 thoughts oxycodone HCl (From Percocet) AdvReac Itching Verified 08/24/25 12:50 Penicillins AdvReac YEAST Verified 08/24/25 12:50 INFECTION Family History Grandfather CAD (coronary artery disease) Heart disease Myocardial infarction Hypertension Hyperlipemia Anxiety and depression Melanoma Diabetes Grandmother Diabetes Arthritis Glaucoma Breast cancer Father Alcoholism Respiratory disease Sister Heart disease Surgical History History of esophagogastroduodenoscopy (EGD) Hx of right cataract extraction History of esophagogastroduodenoscopy (EGD) Hx of kyphoplasty History of cardiac catheterization History of right knee joint replacement History of left heart catheterization (~10/04/11) Status post cataract extraction and insertion of intraocular lens left ankle surgery History of appendectomy Hx of cholecystectomy History of hysterectomy H/O repair of right rotator cuff (~08/2017) Social History household members: none housing: house Smoking Status: Never smoker second hand exposure: No alcohol intake: current alcohol intake frequency: holidays/special occasions only substance use type: does not use what type of physical activity do you participate in: none angela/evangelical: Yarsani seatbelt use: always ROS Constitutional Constitutional: Denies fatigue, fever(s), poor appetite, weight gain or weight loss Gastrointestinal Gastrointestinal: Denies belching, bloating, change in bowel habits, change in stool character, chewing difficulty, coffee ground emesis, constipation, cramping, diarrhea, dyspepsia, dysphagia, early satiety, excessive flatus, fecal incontinence, heartburn, hematemesis, hematochezia, hemorrhoids, loose stools, melena, nausea, odynophagia, rectal bleeding, tenesmus, vomiting or weight changes Vital Signs Vital Signs Vital Signs: 08/24/25 12:51 08/24/25 12:51 08/24/25 13:35 Temperature 97.6 F L 97.6 F L Temperature Source Temporal Pulse Rate 89 89 Respiratory Rate 16 16 Respiratory Pattern Normal Blood Pressure 118/78 118/78 Blood Pressure Mean 91 Blood Pressure Source Monitor Blood Pressure Position Sitting Blood Pressure Location Right Arm Pulse Ox 98 98 Oxygen Delivery Method Room Air Room Air Weight Weight: 196 lb 3.382 oz Body Mass Index (BMI) 32.1 Physical Exam Const alert, oriented x3, no apparent distress and healthy appearing General Appearance: cooperative GI normal to inspection, nondistended, normoactive bowel sounds, soft to palpation, non-tender and non-distended Percussion: normal to percussion Rectal Exam: deferred Results Lab / Micro Data Labs: Laboratory Results - last 24 hr 08/24/25 12:55: POC Glucose 124 H Assessment & Plan Assessment/Plan (1) Dysphagia: QUALIFIERS: Dysphagia type: esophageal phase Qualified Code(s): R13.19 - Other dysphagia PLAN: Assessment and Plan Assessment and Plan (1) Metabolic dysfunction-associated steatotic liver disease (MASLD): Status: Chronic Plan: Labs reviewed. Fib 4 score from labs October 24 is 0.8. A1c also gradually creeping up 6.6% increased from the previous 6.1% therefore DM type II adult-onset. RUQ ultrasound with elastography from July 2020 reviewed shows liver size 17.5 cm, increased echogenicity. Bile ducts within normal limit. No demonstrated mass lesion. Median liver stiffness 9.9 kPa. Status postcholecystectomy. CBD 2.7 cm. Increased echogenicity of pancreas. No pancreatic mass. Previous liver ultrasound with elastography in March 2022 showed liver size 20 cm with median liver stiffness 10.5 kPa therefore improving. Median liver stiffness is 9.9 from July 2024. Lipid profile normal. B12 low. TB 1.46. A1c 6.4. On monthly B12 injection Patient took rezdiffra for some time but she held it because of diarrhea. She also stated is expensive. Follow-up in 4 months (2) Dysphagia: Status: Chronic Qualifiers: Dysphagia type: esophageal phase Qualified Code(s): R13.19 - Other dysphagia Plan: On manometry was found to have EGJ outflow obstruction with elevated mean lower esophageal sphincter pressure. Intermittently she gets epigastric abdominal pain feeling like contraction. Advised soft moist to wet food with water. She had EGD in October where botulinum injection was done. esophagitis. Medium hiatus hernia. Duodenitis with chronic inflammation. EGD 10/26/2020 Impressions : - Abnormal esophageal motility, suspicious for achalasia. Injected with botulinum toxin. - Small hiatal hernia. - Gastroparesis, secondary to diabetes mellitus type II. - No gross lesions in the first portion of the duodenum. She has signs and symptoms of gastroparesis. Will schedule EGD with Dr. Summers for botulinum injection. Reglan prescribed She also has some mild constipation. OTC MiraLAX 17 g daily educated about the dosing.
[2025-08-24] MEDS: Lidocaine 1% (5 ml sdv) 5 ML Vial 10 ML IV (14:53)
[2025-08-24] MEDS: 0.9% Normal Saline (Pres. free 10 ML Vial (14:58)
[2025-08-24] MEDS: 0.9% Saline Lock 10 ML Syringe IV (14:59)
--- NOTE | 2025-08-24 15:09 | OP.PROVAT_ITS ---
08/24/2025 Ryan Leyva MD [address] [place] [address] [place] [address] Re : Upper GI endoscopy procedure for Valeria Ahmadi Dear Dr. Leyva This procedure was performed on Sunday, August 24, 2025. My impressions and recommendations are as follows: Impressions : - Abnormal esophageal motility. Injected with botulinum toxin. - No gross lesions in the entire stomach. - No gross lesions in the entire examined duodenum. - No specimens collected. Recommendations : - Discharge patient to home. - Resume previous diet today. - Continue present medications. My findings are described in the full procedure note, which is enclosed. If I can be of further assistance, please feel free to contact me at . Sincerely, Casey Friend, 08/24/2025 3:08:33 PM This report has been signed electronically.
--- NOTE | 2025-08-24 15:09 | OP.EGD_ITS ---
Patient Name: Valeria Ahmadi Procedure Date: 08/24/2025 2:12 PM Date of : 1960 Age: 65 Procedure: Upper GI endoscopy Indications: Dysphagia, Esophageal motility disorder, For therapy of esophageal motility disorder Providers: Casey Summers DO Referring MD: Ryan Leyva MD Medicines: Monitored Anesthesia Care Patient Profile: This is a 65 year old female. Refer to note in patient chart for documentation of history and physical. Patient has symptoms of chronic chest pain and dysphagia with both liquids and solids. Complications: No immediate complications. Procedure: Pre-Anesthesia Assessment: - Prior to the procedure, a History and Physical was performed, and patient medications and allergies were reviewed. The patient is competent. The risks and benefits of the procedure and the sedation options and risks were discussed with the patient. All questions were answered and informed consent was obtained. Patient identification and proposed procedure were verified by the physician in the pre-procedure area. Mental Status Examination: alert and oriented. Airway Examination: normal oropharyngeal airway and neck mobility. Respiratory Examination: clear to auscultation. CV Examination: normal. Prophylactic Antibiotics: The patient does not require prophylactic antibiotics. Prior Anticoagulants: The patient has taken no anticoagulant or antiplatelet agents. ASA Grade Assessment: II - A patient with mild systemic disease. After reviewing the risks and benefits, the patient was deemed in satisfactory condition to undergo the procedure. The anesthesia plan was to use moderate sedation / analgesia (conscious sedation). Immediately prior to administration of medications, the patient was re-assessed for adequacy to receive sedatives. The heart rate, respiratory rate, oxygen saturations, blood pressure, adequacy of pulmonary ventilation, and response to care were monitored throughout the procedure. The physical status of the patient was re-assessed after the procedure. After obtaining informed consent, the endoscope was passed under direct vision. Throughout the procedure, the patient's blood pressure, pulse, and oxygen saturations were monitored continuously. The Endoscope was introduced through the mouth, and advanced to the second part of duodenum. The upper GI endoscopy was accomplished without difficulty. The patient tolerated the procedure well. Scope In: 2:57:02 PM Scope Out: 3:02:46 PM Total Procedure Duration Time 0 hours 5 minutes 44 seconds Findings: Abnormal motility was noted in the esophagus. The cricopharyngeus was abnormal. There are extra peristaltic waves in the esophageal body. The distal esophagus/lower esophageal sphincter is spastic, but gives up passage to the endoscope. Tertiary peristaltic waves are noted. Area was successfully injected with 100 units botulinum toxin. No gross lesions were noted in the entire examined stomach. No gross lesions were noted in the entire examined duodenum. Impression: - Abnormal esophageal motility. Injected with botulinum toxin. - No gross lesions in the entire stomach. - No gross lesions in the entire examined duodenum. - No specimens collected. Recommendation: - Discharge patient to home. - Resume previous diet today. - Continue present medications. Procedure Code(s): --- Professional --- 80476, Esophagogastroduodenoscopy, flexible, transoral; with directed submucosal injection(s), any substance CPT copyright 2021 [employer]. All rights reserved. The codes documented in this report are preliminary and upon court monitor review may be revised to meet current compliance requirements. Casey Summers DO 08/24/2025 3:08:33 PM This report has been signed electronically. Number of Addenda: 0 Note Initiated On: 08/24/2025 2:12 PM
--- NOTE | 2025-08-24 15:16 | PCM.POST.ANE ---
Anesthesia: Postop Eval I Current Vital Signs Temperature: 97.3 F Pulse Rate: 87 Blood Pressure: 111/51 Respiratory Rate: 20 Pulse Ox: 95 Oxygen Delivery Method: Room Air Assessment Airway patent: Yes Spontaneous unlabored respirations: Yes Mental status: Awake and Calm nausea: No Vomiting: No Anesthesia Complication: No Fluid Hydration Crystalloid volume administer (ml): 900 Total IV fluid infused: 900 Progress Note Anesthesia document: Postop Eval 1 completed: Yes
--- NOTE | 2025-08-24 15:49 | POSTOPAN2_ITS ---
Anesthesia Postop Eval I Sum Postop Eval Completion status Anesthesia document: Postop Eval 1 completed: Yes Anesthesia Postop Eval I Summary Anesthesia Postop Eval I Summary: Anesthesia Postop Eval I: Assessment Summary Airway patent Yes 08/24/25 15:17 [email or web address] Spontaneous unlabored Yes 08/24/25 15:17 [email or web address] [email or web address] respirations Mental status Awake,Calm 08/24/25 15:17 [email or web address] nausea No 08/24/25 15:17 [email or web address] Vomiting No 08/24/25 15:17 [email or web address] [email or web address] Anesthesia Postop Eval I: Fluid Summary Crystalloid volume administer 900 08/24/25 15:17 [email or web address] [email or web address] (ml) Colloids volume administered ( ml) Blood Product volume administered (ml) Total IV fluid infused 900 08/24/25 15:17 [email or web address] [email or web address] Anesthesia Postop Eval I: Summary Notes Anesthesia Complication No 08/24/25 15:17 [email or web address] Anesthesia Complication Comment: Post-operative progress note Anesthesia: Postop Eval II Evaluation Mental status: Awake and Calm Pain Level: 1 nausea: No Vomiting: No Complications Anesthesia Complication: No
--- NOTE | 2025-08-24 15:49 | PCM.POSTANE2 ---
Anesthesia Postop Eval I Sum Postop Eval Completion status Anesthesia document: Postop Eval 1 completed: Yes Anesthesia Postop Eval I Summary Anesthesia Postop Eval I Summary: Anesthesia Postop Eval I: Assessment Summary Airway patent Yes 08/24/25 15:17 SIGNAL MAINTAINER [email or web address] Spontaneous unlabored Yes 08/24/25 15:17 SIGNAL MAINTAINER [email or web address] respirations Mental status Awake,Calm 08/24/25 15:17 SIGNAL MAINTAINER [email or web address] nausea No 08/24/25 15:17 SIGNAL MAINTAINER [email or web address] Vomiting No 08/24/25 15:17 SIGNAL MAINTAINER [email or web address] Anesthesia Postop Eval I: Fluid Summary Crystalloid volume administer 900 08/24/25 15:17 SIGNAL MAINTAINER [email or web address] (ml) Colloids volume administered ( ml) Blood Product volume administered (ml) Total IV fluid infused 900 08/24/25 15:17 SIGNAL MAINTAINER [email or web address] Anesthesia Postop Eval I: Summary Notes Anesthesia Complication No 08/24/25 15:17 SIGNAL MAINTAINER [email or web address] Anesthesia Complication Comment: Post-operative progress note Anesthesia: Postop Eval II Evaluation Mental status: Awake and Calm Pain Level: 1 nausea: No Vomiting: No Complications Anesthesia Complication: No
== END 2025-08-24 15:50 | disposition home or self-care (01) ==
LOC: EN 12:34 → AC 12:37
PROVIDERS: PCP Internal Medicine; Referring Provider Internal Medicine; Visit Provider Internal Medicine Gastroenterology
PROC: 0DJ08ZZ Inspection of Upper Intestinal Tract, Via Natural or Artificial Opening Endoscopic (ICD-10-PCS; CPT 43235; principal; 2025-08-24 13:40)
DX: K22.0 Achalasia of cardia (principal); E11.43 Type 2 diabetes mellitus with diabetic autonomic (poly)neuropathy; E78.00 Pure hypercholesterolemia, unspecified; Z79.899 Other long term (current) drug therapy; I10 Essential (primary) hypertension; M79.7 Fibromyalgia; K31.84 Gastroparesis; K21.9 Gastro-esophageal reflux disease without esophagitis; J45.909 Unspecified asthma, uncomplicated
CPT/HCPCS: 43236; 82962; A4216; J0585; J2405

== ENCOUNTER → 2025-10-20 | Outpatient (CLI) | payer MEDICARE, SELFPAY ==
--- NOTE | 2025-10-20 09:07 | US_ITS ---
PROCEDURE: ABD LIMITED W/ ELASTOGRAPHY REASON FOR EXAM: EPIGASTRIC PAIN COMPARISON: July 16, 2024 TECHNIQUE: Procedure Code: [id number] Modality: US Procedure: ABD LIMITED W/ ELASTOGRAPHY Right upper quadrant abdominal ultrasound. Gabi ElastQ Imaging shear wave elastography for non-invasive assessment of liver tissue stiffness. Gabi EPIQ Elite. FINDINGS: LIVER: Size: Borderline hepatomegaly. Length: 17.2 cm Echotexture: Diffusely echogenic suggesting fatty infiltration Contour: Normal Lesions: None identified Elastography: EQI Med: 4.4 kPa EQI Med Jeff: 1.21 m/s IQR/Med: 11.4 %* GALLBLADDER: Surgically absent. COMMON BILE DUCT: Normal measuring 2.7 mm . PANCREAS: Visualized portions are unremarkable. The distal body and tail are obscured by bowel gas. Visualized portions of the right kidney are unremarkable. No right upper quadrant ascites. The spleen is not enlarged. It measures 9.9 cm 5 cm 3.9 cm. US/ABD Limited w/ Elastography IMPRESSION: No significant hepatic fibrosis seen. Borderline hepatomegaly and fatty infiltration of the liver. Reference Values: SRU <1.37 m/s (5.7kPa): No to mild fibrosis 1.37 m/s - 2.2 m/s: Moderate to severe fibrosis >2.2 m/s (15kPa): Significant fibrosis / cirrhosis METAVIR Score F2 or higher: 1.34 m/s (5.7kPa) F3 or higher: 1.55 m/s (7.3kPa) F4: 1.80 m/s (10kPa) * If the IQR/Med is >30%, the variance in the measurements is a large and the a ccuracy of the measurement may be in question. Reading Location: [id number]
[2025-10-20 10:41] LABS: Hematocrit 43.9 % (37-47); Hemoglobin 14.5 g/dL (12.0-15.0); Immature Granulocytes Count 0.030 X10^3/uL (0.0-0.0); Mean Corp Hgb Conc 33.0 g/dL (32-36); Mean Corpuscular Volume 94.2 fL (81-99); Mean Platelet Vol. 9.5 fl (6.2-12.0); NRBC Flagged by Analyzer 0 % (0-5); Platelet Count 264 K/mm3 (150-450); RBC Distribution Width CV 11.9 % (11.6-14.6); RBC Distribution Width SD 41.2 fl (35.1-43.9); Red Blood Count 4.66 M/mm3 (4.2-5.4); White Blood Count 9.7 K/mm3 (4.4-11.0)
[2025-10-20 10:48] LABS: Prothrombin Time (Protime)PT. 13.8 SECONDS (11.7-14.9)
[2025-10-20 10:54] LABS: Creatinine, Urine (random) 176.00 mg/dL (28.00-217.00); Microalbumin,Random Urine < 12.0 mg/L (<20 mg/L)
[2025-10-20 11:07] LABS: AST(SGOT) 20 U/L (<=31); Alanine Aminotransfer ALT/SGPT 17 U/L (<=34); Albumin, Serum 4.1 g/dL (3.4-4.8); Alkaline Phosphatase 84 U/L (35-104); Anion Gap 10 (5-15); BUN 15 mg/dL (4-19); BUN/Creat Ratio 15.4 RATIO (10-20); Calcium,Total 10.0 mg/dL (7.6-11.0); Carbon Dioxide 28.2 mmol/L (21.0-32.0); Chloride 100 mmol/L (98-108); Globulin 3.4 g/dL (2.2-4.2); Glucose 102 mg/dL (70-99); Potassium 4.1 mmol/L (3.3-5.1)
[2025-10-20 11:23] LABS: Cholesterol 111 mg/dL (<=200); Ferritin 159 ng/mL (22-378); Low Density Lipoprotein Calc. 50 mg/dL; Triglycerides 131 mg/dL; Very Low Density Lipoprotein 26 mg/dL (5-40); Vitamin B12 288 pg/mL (180-914); cholesterol:hdl ratio screen 2.91
[2025-10-20 11:36] LABS: Iron 70 ug/dL (50-170); Iron Binding Capacity,Total 328 ug/dL (250-450); Iron Binding Capacity,Unsat 258 ug/dL (228-428)
== END | disposition home or self-care (01) ==
PROVIDERS: PCP Internal Medicine; Referring Provider Internal Medicine; Visit Provider Internal Medicine
DX: E78.5 Hyperlipidemia, unspecified (principal); E11.9 Type 2 diabetes mellitus without complications; K75.81 Nonalcoholic steatohepatitis (NASH); E80.6 Other disorders of bilirubin metabolism; R74.8 Abnormal levels of other serum enzymes; E53.8 Deficiency of other specified B group vitamins; K76.0 Fatty (change of) liver, not elsewhere classified
CPT/HCPCS: 36415; 76705; 76981; 80053; 80061; 82043; 82570; 82607; 82728; 83036; 83540; 83550; 85025; 85610